=== PATIENT | female | born 1965 | race Caucasian/White ===

== ENCOUNTER → 2016-07-31 | Outpatient (CLI) | payer OTHER ==
[~2016-07-31] MED LIST: AMIT10TA6 PO; ASPI81TA28 PO; ATORVASTATIN PO; ATV5X PO; AZAT50TA22 PO; AZIT250T PO; CHOL100027 PO; CHOL2000 PO; CIPR-255 PO; FLV1 PO; GABA-112 PO; GABA-113 PO; GABA1CAP4 PO; LINA1CAP2 PO; LSN20 PO; LSN40 PO; LSX20 PO; LVQ750 PO; MCRK/20 PO; MELO15TA10 PO; METR-163 PO; MTH25 PO; NYSS5 PO; OMEP40CA41 PO; ONDA4TAB10 SL; OXYC-57 PO; OXYC1CAP5 PO; POTA20TA16 PO; PRED-301 PO; PRED20TA PO; PRVHFAIN INH; PRZ/40 PO; SYN50 PO; TPRSR/25 PO; ZOLP10TA6 PO
[2016-07-31 16:46] LABS: BLOOD UREA NITROGEN 11 mg/dl (7-18); BUN/CREATININE RATIO 11.2 (10-20); CALCIUM 8.8 mg/dl (8.5-10.1); CARBON DIOXIDE 24 mmol/L (21-32); CHLORIDE 95 mmol/L (98-107); CREATININE 0.98 mg/dl (0.60-1.20); GLUCOSE 84 mg/dl (70-99); POTASSIUM 4.6 mmol/L (3.5-5.1); SODIUM 129 mmol/L (136-145)
[2016-07-31 16:47] LABS: PHOSPHORUS 3.3 mg/dl (2.5-4.9)
== END | disposition home or self-care (01) ==
LOC: C.LAB1850 15:24
PROVIDERS: ATTEND Internal Medicine Nephrology
DX: E83.42 Hypomagnesemia (principal)

== ENCOUNTER → 2016-08-27 | Outpatient (CLI) | payer OTHER ==
[2016-08-27 11:11] LABS: BASO % 0.2 %; BASO ABS # 0.01 K/uL (0-0.2); COMPLETE YES; EOS % 1.7 %; HEMATOCRIT 33.4 % (37-47); IG% 0.4 %; LYMPH % 23.9 %; LYMPH ABS # 1.25 K/uL (1.2-3.4); MEAN CELL VOLUME 94.6 fL (80-100); MEAN CORPUSCULAR HGB CONC 33.8 g/dl (32-36); MONO % 9.4 %; NEUT % 64.4 %; PLATELET COUNT 217 K/uL (130-400); RED BLOOD COUNT 3.53 M/uL (4.2-5.4); WHITE BLOOD COUNT 5.22 K/uL (4.8-10.8)
[2016-08-27 11:43] LABS: ALT/SGPT 91 U/L (12-78); BLOOD UREA NITROGEN 12 mg/dl (7-18); BUN/CREATININE RATIO 13.5 (10-20); CALCIUM 8.7 mg/dl (8.5-10.1); CARBON DIOXIDE 26 mmol/L (21-32); CHLORIDE 103 mmol/L (98-107); CREATININE 0.86 mg/dl (0.60-1.20); GLUCOSE 84 mg/dl (70-99); MAGNESIUM 2.1 mg/dl (1.8-2.4); POTASSIUM 3.9 mmol/L (3.5-5.1); SODIUM 139 mmol/L (136-145)
[2016-08-27 11:53] LABS: ALB/GLOB RATIO 0.9 (0.9-2); ALKALINE PHOSPHATASE 86 U/L (45-117); AST/SGOT 62 U/L (15-37); PHOSPHORUS 3.9 mg/dl (2.5-4.9)
== END | disposition home or self-care (01) ==
LOC: C.LAB1850 09:34
PROVIDERS: ATTEND Internal Medicine
DX: E87.1 Hypo-osmolality and hyponatremia (principal); E87.6 Hypokalemia; E83.42 Hypomagnesemia; I10 Essential (primary) hypertension

== ENCOUNTER → 2016-10-01 | Outpatient (CLI) | payer OTHER ==
[2016-10-01 16:37] LABS: BASO % 0.1 %; BASO ABS # 0.01 K/uL (0-0.2); COMPLETE YES; EOS % 0.7 %; HEMATOCRIT 33.4 % (37-47); IG% 0.3 %; LYMPH % 11.4 %; LYMPH ABS # 0.77 K/uL (1.2-3.4); MEAN CELL VOLUME 97.4 fL (80-100); MEAN CORPUSCULAR HEMOGLOBIN 32.9 pg (25-34); MEAN CORPUSCULAR HGB CONC 33.8 g/dl (32-36); MEAN PLATELET VOLUME 9.9 fL (7.4-10.4); MONO % 6.2 %; NEUT % 81.3 %; PLATELET COUNT 249 K/uL (130-400); RED BLOOD COUNT 3.43 M/uL (4.2-5.4); WHITE BLOOD COUNT 6.75 K/uL (4.8-10.8)
== END | disposition home or self-care (01) ==
LOC: C.LAB1850 15:21
PROVIDERS: ATTEND Internal Medicine
DX: D64.9 Anemia, unspecified (principal)

== ENCOUNTER 2016-10-22 12:44 | Emergency (ER) | payer OTHER ==
[~2016-10-22] VITALS: Ht 175.3 cm; Wt 77.9 kg
[~2016-10-22 12:44] MED LIST changes: -ATORVASTATIN PO; -AZIT250T PO; -CHOL2000 PO; -CIPR-255 PO; -GABA1CAP4 PO; -LINA1CAP2 PO; -LSN40 PO; -LSX20 PO; -LVQ750 PO; -METR-163 PO; -MTH25 PO; -OXYC1CAP5 PO; -POTA20TA16 PO; -PRED20TA PO; -PRVHFAIN INH
[2016-10-22 12:46] VITALS: TEMP 36.4; Ht 175.3 cm; Wt 77.9 kg
[2016-10-22] MEDS ORDERED: ONDANSETRON INJ 2 MG/ML 2 ML VIAL IV STA (13:16)
[2016-10-22] MEDS ORDERED: MoRPHine SULFATE 4 MG/ML 1 ML CARP\\VIAL IV STA (13:16)
[2016-10-22] MEDS ORDERED: SODIUM CHLORIDE 0.9% 1000ML 1,000 ML IV STA (13:16)
[2016-10-22] MEDS ORDERED: OPTIRAY 320 IV PRN (13:30)
--- NOTE | 2016-10-22 13:40 | EMERGENCY ROOM VISIT NOTE ---
History First contact with patient: 13:03 Chief Complaint: ABDOMINAL PAIN Stated Complaint: RIGHT LOWER ABD PAIN Nursing Triage Summary: Triage note; pt reports right lower abd pain x 3 days and pain is increasing. pt also reports diarrhea. pt reports nausea. pt reports decreased po intake. History of Present Illness The patient is a 51 year old female who presents to the Emergency Room with complaints of right lower quadrant abdominal pain for the last 3 days. The patient states that the pain has been worsening over the last 3 days. She also reports diarrhea. She rates her discomfort a 7.5/10. She reports nausea. She states she also has had some dysuria. She denies any fevers. She denies any pain in her chest or trouble breathing. She denies hematemesis, melena or hematochezia. She has had in the past but denies any other abdominal surgeries. She does have a history of lupus. Review of Systems A 10 system review of systems was completed with positives and pertinent negatives listed in the HPI. 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 (3) DEPRESSIVE DISORDER NEC (4) HYPERLIPIDEMIA NEC/NOS (5) Hyponatremia (6) Lupus (7) Raynaud's disease (8) Sjogren's disorder (9) SYST LUPUS ERYTHEMATOSIS (10) TOBACCO USE DISORDER Family History Cancer Gallbladder disease Heart disease Hypertension Kidney disease Kidney stones Lung disease Social History Smoking Status: Former Smoker Alcohol Use: none Drug Use: none Marital Status: Housing Status: lives with family Occupation Status: unemployed Current/Historical Medications Scheduled Amitriptyline Hcl (Elavil), 20 MG PO HS Aspirin (Aspirin Ec), 81 MG PO DAILY Cholecalciferol (Vitamin D 1000 Unit), 3,000 INTER.UNIT PO DAILY Ciprofloxacin Hcl (Cipro), 500 MG PO BID Fluoxetine Hcl (Prozac), 80 MG PO DAILY Folic Acid (Folic Acid), 1 MG PO DAILY Furosemide (Furosemide), 20 MG PO QAM Gabapentin (Gabapentin), 300 MG PO TID Levothyroxine Sodium (Synthroid), 50 MCG PO DAILY Lisinopril (Lisinopril), 20 MG PO DAILY Lisinopril (Lisinopril), 40 MG PO QAM Methotrexate (Methotrexate), 2.5 MG PO TUE Metronidazole (Flagyl), 500 MG PO TID Prednisone (Prednisone), 10 MG PO DAILY Zolpidem Tartrate (Zolpidem Tartrate), 10 MG PO HS [Atorvastatin], 1 TAB PO HS Scheduled PRN Oxycodone/Acetaminophen 5MG/325MG (Percocet 5MG/325MG), 1 TAB PO QID PRN for Pain Allergies Coded Allergies: Penicillins (Verified Allergy, Unknown, *, 10/22/16) Vancomycin (Verified Allergy, Unknown, *, 10/22/16) Physical Exam Vital Signs Date Time Temp Pulse Resp B/P Pulse Ox O2 Delivery O2 Flow Rate FiO2 10/22/16 16:11 60 20 180/63 99 Room Air 10/22/16 14:44 130/68 10/22/16 12:46 36.4 67 18 130/69 98 Room Air Physical Exam VITALS: Vitals are noted on the nurse's note and reviewed by myself. Vital signs stable. The patient is afebrile. GENERAL: This is a 51 year old female, in no acute distress, nondiaphoretic, well-developed well-nourished. SKIN: The skin was without rashes, erythema, edema, or bruising. There is no tenting of the skin. Capillary reflex less than 2 seconds. HEAD: Normocephalic atraumatic. EARS: The external ears are normal in appearance. EYES: Pupils equal round and reactive to light and accommodation. Conjunctivae without injection, sclerae without icterus. Extraocular movements intact. NOSE: Patent, turbinates without inflammation or discharge. MOUTH: Mucous membranes moist. Tonsils are not enlarged. Pharynx without erythema or exudate. Uvula midline. Airway patent. Tongue does not deviate. NECK: Supple without nuchal rigidity. No JVD. HEART: Regular rate and rhythm without murmurs gallops or rubs. LUNGS: Clear to auscultation bilaterally without wheezes, rales or rhonchi. No retractions or accessory muscle use. ABDOMEN: Positive bowel sounds x 4. Soft, moderate right lower quadrant tenderness, without masses or organomegaly. Farmer sign negative. MUSCULOSKELETAL: No muscle atrophy, erythema, or edema noted. Full range of motion in all extremities. Normal gait. Strength 5/5 throughout. NEURO: Patient was alert and oriented to person place and time. No focal neurological deficits. Medical Decision & Procedures ER Provider Diagnostic Interpretation: [~ rep ct add3]] ABDOMEN AND PELVIS CT WITH IV CONTRAST CT DOSE: 624.17 mGycm HISTORY: Pain abdominal pain TECHNIQUE: Multiaxial CT images of the abdomen and pelvis were performed following the use of intravenous contrast. COMPARISON STUDY: None. FINDINGS: Lung bases are clear. Liver spleen and pancreas are unremarkable. Kidneys negative for hydronephrosis. The appendix measures 5.4 mm maximum diameter. Lateral to the tip of the appendix and cecum is an area of infiltrative change suggesting epiploic appendagitis. This most likely represents a small omental infarct. There is no surrounding significant fluid abscess or collection. There is a moderate amount of free fluid within the pelvic cul-de-sac. Bladder is midline. Bowel pattern overall is nonobstructive. IMPRESSION: 1. Findings consistent with epiploic appendagitis, versus a small right lower quadrant omental infarct. 2. Small/moderate free fluid within the pelvic cul-de-sac. 3. No evidence for appendicitis. 4. No evidence for abscess, collection, or obstructive change. Laboratory Results 10/22/16 13:05 Red Blood Count 3.74, Mean Corpuscular Volume 95.5, Mean Corpuscular Hemoglobin 32.1, Mean Corpuscular Hemoglobin Concent 33.6, Mean Platelet Volume 9.7, Neutrophils (%) (Auto) 78.9, Lymphocytes (%) (Auto) 9.4, Monocytes (%) (Auto) 10.8, Eosinophils (%) (Auto) 0.7, Basophils (%) (Auto) 0.1, Neutrophils # (Auto ) 6.92, Lymphocytes # (Auto) 0.82, Monocytes # (Auto) 0.95, Eosinophils # (Auto ) 0.06, Basophils # (Auto) 0.01 10/22/16 13:05 Test 10/22/16 13:05 10/22/16 13:55 White Blood Count 8.77 K/uL (4.8-10.8) Red Blood Count 3.74 M/uL (4.2-5.4) Hemoglobin 12.0 g/dL (12.0-16.0) Hematocrit 35.7 % (37-47) Mean Corpuscular Volume 95.5 fL (80-100) Mean Corpuscular Hemoglobin 32.1 pg (25-34) Mean Corpuscular Hemoglobin Concent 33.6 g/dl (32-36) Platelet Count 263 K/uL (130-400) Mean Platelet Volume 9.7 fL (7.4-10.4) Neutrophils (%) (Auto) 78.9 % Lymphocytes (%) (Auto) 9.4 % Monocytes (%) (Auto) 10.8 % Eosinophils (%) (Auto) 0.7 % Basophils (%) (Auto) 0.1 % Neutrophils # (Auto) 6.92 K/uL (1.4-6.5) Lymphocytes # (Auto) 0.82 K/uL (1.2-3.4) Monocytes # (Auto) 0.95 K/uL (0.11-0.59) Eosinophils # (Auto) 0.06 K/uL (0-0.5) Basophils # (Auto) 0.01 K/uL (0-0.2) RDW Standard Deviation 48.0 fL (36.4-46.3) RDW Coefficient of Variation 13.9 % (11.5-14.5) Immature Granulocyte % (Auto) 0.1 % Immature Granulocyte # (Auto) 0.01 K/uL (0.00-0.02) Anion Gap 9.0 mmol/L (3-11) Est Creatinine Clear Calc Drug Dose 78.2 ml/min Estimated GFR () 87.0 Estimated GFR (Non- 75.0 BUN/Creatinine Ratio 7.0 (10-20) Calcium Level 8.8 mg/dl (8.5-10.1) Total Bilirubin 0.4 mg/dl (0.2-1) Aspartate Amino Transf (AST/SGOT) 101 U/L (15-37) Alanine Aminotransferase (ALT/SGPT) 134 U/L (12-78) Alkaline Phosphatase 104 U/L (45-117) Total Protein 7.3 gm/dl (6.4-8.2) Albumin 3.5 gm/dl (3.4-5.0) Globulin 3.8 gm/dl (2.5-4.0) Albumin/Globulin Ratio 0.9 (0.9-2) Lipase 130 U/L (73-393) Urine Color YELLOW Urine Appearance CLEAR (CLEAR) Urine pH 6.5 (4.5-7.5) Urine Specific [place] 1.005 (1.000-1.030) Urine Protein NEG (NEG) Urine Glucose (UA) NEG (NEG) Urine Ketones NEG (NEG) Urine Occult Blood NEG (NEG) Urine Nitrite NEG (NEG) Urine Bilirubin NEG (NEG) Urine Urobilinogen NEG (NEG) Urine Leukocyte Esterase NEG (NEG) Medications Administered Medications (Trade) Dose Ordered Sig/Miranda Route Start Time Stop Time Status Last Admin Dose Admin Sodium Chloride (Nss 1000ml) 1,000 ml @ 999 mls/hr Q1H1M STAT IV 10/22/16 13:16 10/22/16 14:16 DC 10/22/16 13:46 999 MLS/HR Ondansetron HCl (Zofran Inj) 4 mg NOW STAT IV 10/22/16 13:16 10/22/16 13:18 DC 10/22/16 13:46 4 MG Morphine Sulfate (MoRPHine SULFATE INJ) 4 mg NOW STAT IV 10/22/16 13:16 10/22/16 13:18 DC 10/22/16 13:46 4 MG Hydromorphone HCl (Dilaudid Inj) 1 mg NOW STAT IV 10/22/16 14:32 10/22/16 14:33 DC 10/22/16 14:41 1 MG Hydromorphone HCl (Dilaudid Inj) 0.5 mg NOW STAT IV 10/22/16 16:15 10/22/16 16:16 DC 10/22/16 16:23 0.5 MG ED Course The patient was seen and examined. Previous visits were reviewed. The patient does not have a fever or leukocytosis. She does not have any significant electrolyte abnormality. She slightly hypokalemic with potassium 3.1. Her transaminases are elevated at 101 AST and 134 ALT. The patient states that she has had elevation in her liver enzymes recently. Lipase was not elevated. Urinalysis is negative. CT scan of the abdomen and pelvis is consistent with epiploic appendagitis She was hydrated with normal saline She was given 4 mg IV Zofran and 4 mg IV morphine with mild improvement in her pain She was then given 1 mg IV Dilaudid with good improvement in her pain She was given additional 0.5 mg IV Dilaudid prior to discharge The patient presents to the emergency department with right lower quadrant abdominal pain and tenderness. She has epiploic appendagitis on imaging. This would likely explain her pain. Given the fact that the patient is on methotrexate has lupus, she will be covered with Cipro and Flagyl for 5 days. The patient has had elevation in her transaminases which she states that this has been ongoing. She does not have any upper abdominal tenderness to palpation. The patient should return to the ER with any worsening pain, fevers. Otherwise, she should follow-up with her family doctor next week. The patient was also seen and examined by who agrees with the assessment and treatment plan. Medical Decision DIFFERENTIAL DIAGNOSIS: Hepatitis, cholecystitis, cholangitis, biliary colic, pancreatitis, pneumonia, subdiaphragmatic abscess, appendicitis, inguinal hernia , nephrolithiasis, inflammatory bowel disease, mesenteric adenitis, peptic ulcer disease, GERD, gastritis, pancreatitis, myocardial infarction, pericarditis, ruptured aortic aneurysm, appendicitis, gastroenteritis, bowel obstruction, splenic infarct, diverticulitis, mesenteric ischemia, metabolic, peritonitis, among others. Impression Primary Impression: Epiploic appendagitis Additional Impression: Right lower quadrant abdominal pain Departure Information Dispostion Home / Self-Care Condition GOOD Prescriptions Metronidazole (Flagyl) 500 Mg Tab 500 MG PO TID for 5 Days, #15 TAB Prov: Windy Coates PA-C 10/22/16 Ciprofloxacin Hcl (CIPRO) 500 Mg Tab 500 MG PO BID for 5 Days, #10 TAB Prov: Windy Coates PA-C 10/22/16 Referrals Jairo Escobar M.D. (PCP) Forms Call Back Authorization, HOME CARE DOCUMENTATION FORM, IMPORTANT VISIT INFORMATION, Work Instructions Specific Date: Off work 10/23/16 and 10/24/16 Patient Instructions [facility] Additional Instructions Cipro and flagyl as prescribed until finished Continue your pain medication as prescribed Return with fevers or worsening pain Otherwise, recheck with your family doctor on Wednesday Problem Qualifiers
[2016-10-22] MEDS ORDERED: LSN40 PO (13:46)
[2016-10-22] MEDS ORDERED: GABA1CAP4 PO (13:46)
[2016-10-22] MEDS ORDERED: MTH25 PO (13:46)
[2016-10-22] MEDS ORDERED: ATORVASTATIN PO (13:50)
[2016-10-22 13:53] LABS: BASO % 0.1 %; BASO ABS # 0.01 K/uL (0-0.2); COMPLETE YES; EOS % 0.7 %; HEMATOCRIT 35.7 % (37-47); IG% 0.1 %; LYMPH % 9.4 %; LYMPH ABS # 0.82 K/uL (1.2-3.4); MEAN CELL VOLUME 95.5 fL (80-100); MEAN CORPUSCULAR HEMOGLOBIN 32.1 pg (25-34); MEAN CORPUSCULAR HGB CONC 33.6 g/dl (32-36); MEAN PLATELET VOLUME 9.7 fL (7.4-10.4); MONO % 10.8 %; NEUT % 78.9 %; PLATELET COUNT 263 K/uL (130-400); RED BLOOD COUNT 3.74 M/uL (4.2-5.4); WHITE BLOOD COUNT 8.77 K/uL (4.8-10.8)
[2016-10-22] MEDS ORDERED: LSX20 PO (13:53)
[2016-10-22 14:00] LABS: CALCIUM 8.8 mg/dl (8.5-10.1)
[2016-10-22 14:02] LABS: CREATININE 0.89 mg/dl (0.60-1.20); POTASSIUM 3.1 mmol/L (3.5-5.1)
[2016-10-22 14:05] LABS: ALB/GLOB RATIO 0.9 (0.9-2)
[2016-10-22] MEDS ORDERED: HYDROmorphone INJ 1 MG/ML SYR IV STA ×2 (14:32→16:15)
[2016-10-22 14:57] LABS: URINE APPEARANCE CLEAR (CLEAR); URINE BILIRUBIN NEG (NEG); URINE COLOR YELLOW; URINE NITRITE NEG (NEG); URINE PH 6.5 (4.5-7.5); URINE SPECIFIC GRAVITY 1.005 (1.000-1.030); UROBILINOGEN NEG (NEG); ZZUR CULT IF INDIC CLEAN CATCH NO
[2016-10-22 15:00] LABS: MANUAL MICROSCOPIC REQUIRED? NO; REVIEW REQ? NO
--- NOTE | 2016-10-22 15:36 | DIAGNOSTIC IMAGING REPORT ---
ABDOMEN AND PELVIS CT WITH IV CONTRAST CT DOSE: 624.17 mGycm HISTORY: Pain abdominal pain TECHNIQUE: Multiaxial CT images of the abdomen and pelvis were performed following the use of intravenous contrast. COMPARISON STUDY: None. FINDINGS: Lung bases are clear. Liver spleen and pancreas are unremarkable. Kidneys negative for hydronephrosis. The appendix measures 5.4 mm maximum diameter. Lateral to the tip of the appendix and cecum is an area of infiltrative change suggesting epiploic appendagitis. This most likely represents a small omental infarct. There is no surrounding significant fluid abscess or collection. There is a moderate amount of free fluid within the pelvic cul-de-sac. Bladder is midline. Bowel pattern overall is nonobstructive. IMPRESSION: 1. Findings consistent with epiploic appendagitis, versus a small right lower quadrant omental infarct. 2. Small/moderate free fluid within the pelvic cul-de-sac. 3. No evidence for appendicitis. 4. No evidence for abscess, collection, or obstructive change. Electronically signed by: Raza Flores M.D. 10/22/2016 3:34 PM Dictated Date/Time: 10/22/2016 3:20 PM
--- NOTE | 2016-10-22 15:53 | EMERGENCY ROOM VISIT NOTE ---
ED Visit Note First contact with patient: 15:45 This Patient was discussed with the physician accounting administrative assistant, Yolanda Coates PA-C. The pertinent historical and physical exam findings were confirmed. I agree with the studies ordered and with the interpretations of these studies. I agree with the disposition and care plan.
[2016-10-22] MEDS ORDERED: CIPR-255 PO (16:01)
[2016-10-22] MEDS ORDERED: METR-163 PO (16:01)
[2016-10-22 16:11] VITALS: BP 180/63; PULSE 60; O2SAT 99
== END 2016-10-22 16:28 | disposition home or self-care (01) ==
LOC: C.EDB 12:45
DX: K63.89 Other specified diseases of intestine (principal); Q43.8 Other specified congenital malformations of intestine; R10.31 Right lower quadrant pain; R19.7 Diarrhea, unspecified; F32.9 Major depressive disorder, single episode, unspecified; E78.5 Hyperlipidemia, unspecified; Z79.82 Long term (current) use of aspirin; Z79.899 Other long term (current) drug therapy; Z86.79 Personal history of other diseases of the circulatory system; Z87.891 Personal history of nicotine dependence; Z82.49 Family history of ischemic heart disease and other diseases of the circulatory system; Z83.6 Family history of other diseases of the respiratory system; Z83.79 Family history of other diseases of the digestive system; Z84.1 Family history of disorders of kidney and ureter

== ENCOUNTER → 2016-10-27 | Outpatient (CLI) | payer OTHER ==
[~2016-10-27] MED LIST changes: +ATORVASTATIN PO; -ATV5X PO; -AZAT50TA22 PO; +AZIT250T PO; +CHOL2000 PO; +CIPR-255 PO; -GABA-112 PO; -GABA-113 PO; +GABA1CAP4 PO; +LINA1CAP2 PO; +LSN40 PO; +LSX20 PO; +LVQ750 PO; -MCRK/20 PO; -MELO15TA10 PO; +METR-163 PO; +MTH25 PO; -NYSS5 PO; -OMEP40CA41 PO; -ONDA4TAB10 SL; +OXYC1CAP5 PO; +POTA20TA16 PO; +PRED20TA PO; +PRVHFAIN INH
[2016-10-27 17:34] LABS: BASO % 0.1 %; BASO ABS # 0.01 K/uL (0-0.2); COMPLETE YES; EOS % 0.2 %; HEMATOCRIT 36.7 % (37-47); IG% 0.1 %; LYMPH % 6.9 %; LYMPH ABS # 0.61 K/uL (1.2-3.4); MEAN CELL VOLUME 98.4 fL (80-100); MEAN CORPUSCULAR HEMOGLOBIN 32.7 pg (25-34); MEAN CORPUSCULAR HGB CONC 33.2 g/dl (32-36); MONO % 5.1 %; NEUT % 87.6 %; PLATELET COUNT 282 K/uL (130-400); RED BLOOD COUNT 3.73 M/uL (4.2-5.4); WHITE BLOOD COUNT 8.79 K/uL (4.8-10.8)
[2016-10-27 18:24] LABS: ALT/SGPT 155 U/L (12-78); AST/SGOT 152 U/L (15-37); BLOOD UREA NITROGEN 8 mg/dl (7-18); BUN/CREATININE RATIO 8.5 (10-20); CALCIUM 9.3 mg/dl (8.5-10.1); CARBON DIOXIDE 25 mmol/L (21-32); CHLORIDE 106 mmol/L (98-107); CREATININE 0.94 mg/dl (0.60-1.20); GLUCOSE 107 mg/dl (70-99); POTASSIUM 3.7 mmol/L (3.5-5.1); SODIUM 140 mmol/L (136-145)
[2016-10-27 18:26] LABS: ALKALINE PHOSPHATASE 104 U/L (45-117)
== END | disposition home or self-care (01) ==
LOC: C.LABBFT 15:32
PROVIDERS: ATTEND Physician Assistant Medical
DX: D64.9 Anemia, unspecified (principal)

== ENCOUNTER → 2016-11-03 | Outpatient (CLI) | payer OTHER ==
[~2016-11-03] MED LIST changes: -METR-163 PO
--- NOTE | 2016-11-03 10:23 | DIAGNOSTIC IMAGING REPORT ---
ABDOMEN COMPLETE (US) CLINICAL HISTORY: ABDOMINAL SWELLING; ABNORMAL LIVER ENZYMES COMPARISON STUDY: CT scan dated 10/22/2016 FINDINGS: The liver demonstrates borderline increased echogenicity, without evidence of focal mass. The gallbladder appears sonographically normal. No pancreatic masses are visualized The spleen measures 8.9 cm in length. No splenic masses are visualized. The right kidney measures 10 cm in length. The left kidney measures 10 cm in length. No renal masses are visualized. There is no evidence of hydronephrosis. There is no solid dominant right aneurysm. The IVC appears normal as visualized. IMPRESSION: 1. Borderline increased hepatic echogenicity. Otherwise normal ultrasound of the upper abdomen. Electronically signed by: Carmine Leonardo M.D. 11/03/2016 10:20 AM Dictated Date/Time: 11/03/2016 10:18 AM
== END | disposition home or self-care (01) ==
LOC: C.ULTRBC 09:47
PROVIDERS: ATTEND Physician Assistant Medical
DX: R19.00 Intra-abdominal and pelvic swelling, mass and lump, unspecified site (principal); R74.8 Abnormal levels of other serum enzymes

== ENCOUNTER 2016-11-27 08:50 | Day surgery (SDC) | payer OTHER ==
[~2016-11-27] VITALS: Ht 175.3 cm; Wt 76.2 kg
[~2016-11-27 08:50] MED LIST changes: -AZIT250T PO; -CHOL2000 PO; -LINA1CAP2 PO; -LVQ750 PO; -OXYC1CAP5 PO; -POTA20TA16 PO; -PRED20TA PO; -PRVHFAIN INH; -TPRSR/25 PO
[2016-11-27 09:07] VITALS: BP 137/71; PULSE 58; TEMP 36.6; O2SAT 96; Ht 175.3 cm; Wt 76.2 kg
[2016-11-27 09:27] LABS: MEAN CELL VOLUME 95.5 fL (80-100); MEAN CORPUSCULAR HEMOGLOBIN 31.8 pg (25-34); PLATELET COUNT 234 K/uL (130-400); RED BLOOD COUNT 3.77 M/uL (4.2-5.4); WHITE BLOOD COUNT 7.28 K/uL (4.8-10.8)
[2016-11-27 09:33] LABS: MEAN CORPUSCULAR HGB CONC 33.3 g/dl (32-36)
[2016-11-27 09:37] LABS: INR 0.9 (0.9-1.1); PARTIAL THROMBOPLASTIN RATIO 0.9; PROTHROMBIN TIME (PATIENT) 10.1 SECONDS (9.0-12.0)
[2016-11-27] MEDS ORDERED: ACETAMINOPHEN 500 MG TAB PO PRN (11:00)
--- NOTE | 2016-11-27 11:00 | Discharge Instructions ---
Discharge Instructions Procedure Procedure Date: November 27, 2016. Reason for visit: Elevated Lft's. Discharge Discharge Date: November 27, 2016. Discharge Diagnosis: Elevated LFT's Instructions Activity Recommendations: 1 Day-May resume regular activity Return to School/Work: no limitations Recommended Home Diet: Resume Previous Diet Allergies Coded Allergies: Penicillins (Verified Allergy, Intermediate, passes out as a child, ) Vancomycin (Verified Allergy, Intermediate, red man syndrome, 11/27/16) Sara Parra Recommendations: Call your doctor if: * Temperature above 101 degrees * Pain not relieved by pain medicine ordered * There is increased drainage or redness from any incision * You have any unanswered questions or concerns. Your Doctors Instructions noted above were prepared by provider Carmine Leonardo. Patient Signature Section: Patient Instructions Signature Page Nargis Davenport Patient (or Guardian) Signature/Date: I have read and understand the instructions given to me by my caregivers. Caregiver/RN/Doctor Signature/Date: The above-named patient and/or guardian has received patient instructions on this date. + Original Patient Signature Page (only) stays with chart. Please make copy for patient.
[2016-11-27 11:35] VITALS: BP 142/80; PULSE 60; TEMP 37.1; O2SAT 99
--- NOTE | 2016-11-27 11:36 | DIAGNOSTIC IMAGING REPORT ---
ULTRASOUND-GUIDED HEPATIC CORE BIOPSY CLINICAL HISTORY: Abnormal LFTs. Lupus. COMPARISON STUDY: Ultrasound study dated 11/03/2016 FINDINGS: A timeout was performed. The risks the procedure were explained the patient informed consent was obtained. The patient was prepped and draped in sterile fashion. The patient's skin was anesthetized 1% lidocaine. Utilizing ultrasound guidance, two 18-gauge 2 cm throw core biopsies were acquired from the right lobe of the liver. There were no immediate complications. The patient was sent to same day surgery for postprocedure observation. IMPRESSION: Successful ultrasound-guided core biopsy of the right lobe of the liver. Electronically signed by: Carmine Leonardo M.D. 11/27/2016 11:35 AM Dictated Date/Time: 11/27/2016 11:34 AM
[2016-11-27 12:00] VITALS: BP 129/70; PULSE 62; TEMP 36.7; O2SAT 97
[2016-11-27 12:31] VITALS: BP 152/77; PULSE 61; TEMP 37; O2SAT 99
[2016-11-27 12:50] VITALS: BP 129/59; PULSE 60; TEMP 36.6; O2SAT 98
[2016-11-27 13:31] VITALS: BP 129/76; PULSE 58; TEMP 36.6; O2SAT 96
== END 2016-11-27 13:33 | disposition home or self-care (01) ==
LOC: C.ACU 08:50 → EDSTATUS 09:00 → C.ACU 13:33
PROVIDERS: ATTEND Nurse Practitioner
DX: K73.8 Other chronic hepatitis, not elsewhere classified (principal); K76.0 Fatty (change of) liver, not elsewhere classified; M32.9 Systemic lupus erythematosus, unspecified

== ENCOUNTER → 2016-12-08 | Outpatient (CLI) | payer OTHER ==
[~2016-12-08] MED LIST changes: +AZIT250T PO; +CHOL2000 PO; -CIPR-255 PO; +LINA1CAP2 PO; -LSN20 PO; +LVQ750 PO; +OXYC1CAP5 PO; +POTA20TA16 PO; +PRED20TA PO; +PRVHFAIN INH; +TPRSR/25 PO
[2016-12-08 17:30] LABS: ALT/SGPT 101 U/L (12-78); AST/SGOT 66 U/L (15-37); BLOOD UREA NITROGEN 9 mg/dl (7-18); BUN/CREATININE RATIO 10.4 (10-20); CARBON DIOXIDE 27 mmol/L (21-32); CHLORIDE 105 mmol/L (98-107); CREATININE 0.88 mg/dl (0.60-1.20); GLUCOSE 100 mg/dl (70-99); MAGNESIUM 2.2 mg/dl (1.8-2.4); POTASSIUM 3.4 mmol/L (3.5-5.1); SODIUM 138 mmol/L (136-145)
[2016-12-08 17:34] LABS: ALB/GLOB RATIO 0.9 (0.9-2); ALKALINE PHOSPHATASE 92 U/L (45-117); CHOLESTEROL 175 mg/dl (0-200); CHOLESTEROL/HDL RATIO 2.5; HDL CHOLESTEROL 70 mg/dl; LDL CHOLESTEROL CALCULATED 85 mg/dl; PHOSPHORUS 3.3 mg/dl (2.5-4.9); TRIGLYCERIDES 99 mg/dl (0-150); VERY LOW DENSITY LIPOPROT CALC 20 mg/dl
== END | disposition home or self-care (01) ==
LOC: C.LABBC 13:07
PROVIDERS: ATTEND Internal Medicine Nephrology
DX: E87.1 Hypo-osmolality and hyponatremia (principal); I65.29 Occlusion and stenosis of unspecified carotid artery; E78.5 Hyperlipidemia, unspecified

== ENCOUNTER → 2017-01-06 | Outpatient (CLI) | payer OTHER | END | disposition home or self-care (01) | LOC: C.LAB1850 16:07 | PROVIDERS: ATTEND Internal Medicine | DX: R74.8 Abnormal levels of other serum enzymes (principal) ==

== ENCOUNTER 2017-01-29 10:58 | Inpatient (IN) | payer OTHER ==
[~2017-01-29] VITALS: Ht 175.3 cm; Wt 77.3 kg
[~2017-01-29 10:58] MED LIST changes: -AZIT250T PO; -CHOL2000 PO; -LINA1CAP2 PO; -LVQ750 PO; -OXYC1CAP5 PO; -POTA20TA16 PO; -PRED20TA PO; -PRVHFAIN INH; -TPRSR/25 PO
[2017-01-29] MEDS ORDERED: SODIUM CHLORIDE 0.9% 1000ML 1,000 ML IV STA (11:34)
--- NOTE | 2017-01-29 11:48 | EMERGENCY ROOM VISIT NOTE ---
History First contact with patient: 11:21 Chief Complaint: SHORTNESS OF BREATH Stated Complaint: SOB/CHEST PAIN Nursing Triage Summary: Pt reports having SOB that started last night. Pt spoke with nurse at physician's office and instructed to come here for chest XRAY. Pt reports bladder pressure, fever, and SOB. History of Present Illness The patient is a 51 year old female who presents to the Emergency Room with complaints of chest pain and shortness of breath. The patient has a history of lupus. She has been on CellCept. She developed a fever of 101F on Wednesday. She contacted her trade embalmer who told her to stop the CellCept which she did on Wednesday. She states that she had an intermittent fever over Wednesday, Wednesday and Wednesday. She was seen at urgent care on Wednesday and had a negative rapid strep and a negative urine dip. The patient states that last night she began to developed a pressure and burning sensation in the center of her chest. She also reports dyspnea with exertion. She states she feels a dryness in her throat and lungs. She states that she has a history of thrush and has been using nystatin mouthwash and biotene. The patient has also had bladder pressure. She has had mild diarrhea and nausea. She states that the diarrhea is not uncommon for her as she has a history of irritable bowel syndrome. She denies any headache, neck pain or neck stiffness. She denies any cough. She denies any vomiting. She had a liver biopsy last month which showed inflammation. She has had a history of elevated transaminases. Review of Systems A 10 system review of systems was completed with positives and pertinent negatives listed in the HPI. 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 (13) TOBACCO USE DISORDER Family History Cancer Gallbladder disease Heart disease Hypertension Kidney disease Kidney stones Lung disease Social History Smoking Status: Former Smoker Alcohol Use: none Drug Use: none Marital Status: Housing Status: lives with family Occupation Status: unemployed Current/Historical Medications Scheduled Amitriptyline Hcl (Elavil), 20 MG PO HS Aspirin (Aspirin Ec), 81 MG PO DAILY Cholecalciferol (Vitamin D3), 2 CAP PO DAILY Fluoxetine Hcl (Prozac), 80 MG PO DAILY Folic Acid (Folic Acid), 1 MG PO DAILY Gabapentin (Gabapentin), 900 MG PO TID Lisinopril (Lisinopril), 40 MG PO QAM Metoprolol Succinate (Metoprolol Succinate ER), 1 TAB PO DAILY Oxycodone Hcl (Oxycodone Hcl), 1 CAP PO QID Prednisone (Prednisone), 2 TAB PO DAILY Zolpidem Tartrate (Zolpidem Tartrate), 10 MG PO HS Physical Exam Vital Signs Date Time Temp Pulse Resp B/P (MAP) Pulse Ox O2 Delivery O2 Flow Rate FiO2 01/29/17 17:44 72 17 146/96 95 01/29/17 16:29 72 01/29/17 16:16 79 22 145/61 98 Room Air 2.0 01/29/17 14:37 64 20 152/74 97 Nasal Cannula 3.0 01/29/17 14:31 94 93 Room Air 01/29/17 13:13 66 20 153/78 98 Nasal Cannula 2.0 01/29/17 12:30 61 01/29/17 12:25 99 Nasal Cannula 2.0 01/29/17 12:23 59 22 221/84 99 Nasal Cannula 2.0 01/29/17 11:04 36.7 76 20 154/89 95 Room Air Physical Exam VITALS: Vitals are noted on the nurse's note and reviewed by myself. Vital signs stable. GENERAL: This is a 51-year-old female, in no acute distress, nondiaphoretic, well-developed well-nourished. SKIN: The skin was without rashes, erythema, edema, or bruising. There is no tenting of the skin. Capillary reflex less than 2 seconds. HEAD: Normocephalic atraumatic. EARS: External auditory canals clear, tympanic membranes pearly ritter without erythema or effusion bilaterally. EYES: Pupils equal round and reactive to light and accommodation. Conjunctivae without injection, sclerae without icterus. Extraocular movements intact. NOSE: Patent, turbinates without inflammation or discharge. No sinus tenderness. MOUTH: Mucous membranes moist. Tonsils are not enlarged. There are a few small areas of petechiae to the hard palate. The patient does wear an upper denture. Pharynx without exudate. Uvula midline. Airway patent. Tongue does not deviate. NECK: Supple without nuchal rigidity. No lymphadenopathy. No thyromegaly. Cervical spine is nontender. No JVD. HEART: Regular rate and rhythm without murmurs gallops or rubs. LUNGS: Clear to auscultation bilaterally without wheezes, rales or rhonchi. No retractions or accessory muscle use. ABDOMEN: Positive bowel sounds x 4. Soft, mild diffuse tenderness, without masses or organomegaly. Farmer sign negative. MUSCULOSKELETAL: No muscle atrophy, erythema, or edema noted. Full range of motion in all extremities. No tenderness to palpation. Normal gait. Strength 5/5 throughout. NEURO: Patient was alert and oriented to person place and time. No focal neurological deficits. Medical Decision & Procedures ER Provider Diagnostic Interpretation: ABD/PELVIS IV CONTRAST ONLY CT DOSE: HISTORY: Pain ll. Pain, fever, on cell cept TECHNIQUE: Multiaxial CT images of the abdomen and pelvis were performed following the use of intravenous contrast. A dose lowering technique was utilized adhering to the principles of ALARA. COMPARISON STUDY: 10/22/2016 FINDINGS: The lung bases are clear. The liver, spleen, gallbladder, pancreas, kidneys, and adrenal glands are within normal limits. No bowel wall thickening or obstruction. The pelvic organs are unremarkable. No suspicious lytic or blastic osseous lesions. Postoperative changes consistent with a low lumbar laminectomy. IMPRESSION: No acute process the abdomen or pelvis. ] (CHEST FOR PE) ANGIO WITH CT DOSE: 656.35 mGy.cm HISTORY: 51 years-old Female presents with fever and elevated d-dimer. Left lower quadrant abdominal pain. TECHNIQUE: Multiple CTA images of the chest were obtained after the intravenous administration of 92 ml Optiray 320. Coronal and sagittal MIPS were obtained from the axial data set and were submitted for review. A dose lowering technique was utilized adhering to the principles of ALARA. COMPARISON: CT abdomen and pelvis of same day. FINDINGS: CTA: There is adequate opacification of the pulmonary arteries to the level of the subsegmental branches without convincing evidence of acute pulmonary embolism. The thoracic aorta is normal in course and caliber. Heart size is normal. There is minimal reflux of contrast into the IVC, likely secondary to injection technique. CT CHEST: Thyroid is homogeneous. Mild right hilar adenopathy measuring up to 1.9 x 1.4 cm is noted. Mild left hilar and prevascular lymph nodes are also seen measuring up to 1.7 x 0.8 cm. There is no pneumothorax or pleural effusion. Moderate paraseptal and centrilobular emphysematous changes are noted. Multifocal multilobar distribution of groundglass opacities are noted diffusely throughout the lungs bilaterally. There is moderate bronchial wall thickening in a multilobar distribution. Additionally, there are areas of mosaic attenuation and interlobular septal thickening. The imaged upper abdominal structures are within normal limits. Soft tissues are unremarkable. Bones are intact with mild multilevel endplate spurring throughout the spine. IMPRESSION: 1. No evidence of acute aortic pathology or pulmonary thromboembolic disease. 2. Multifocal multilobar distribution of diffuse groundglass opacities are noted with associated bronchial wall thickening, mosaic attenuation and interlobular septal thickening. These findings are nonspecific with differential considerations including atypical pneumonia with bronchitis or pulmonary edema among other etiologies. Follow-up imaging to document resolution is recommended. 3. Background moderate centrilobular and paraseptal emphysema. CHEST ONE VIEW PORTABLE CLINICAL HISTORY: chest pain, fever dyspnea COMPARISON STUDY: 04/24/2016 FINDINGS: The bones soft tissues and hemidiaphragms are normal. The cardiomediastinal silhouette is normal. The lungs are clear. The pulmonary vasculature is normal. IMPRESSION: Negative chest. Laboratory Results 01/29/17 11:20 Red Blood Count 4.38, Mean Corpuscular Volume 87.9, Mean Corpuscular Hemoglobin 29.7, Mean Corpuscular Hemoglobin Concent 33.8, Mean Platelet Volume 9.8, Neutrophils (%) (Auto) 74.1, Lymphocytes (%) (Auto) 16.2, Monocytes (%) (Auto) 6.7, Eosinophils (%) (Auto) 2.4, Basophils (%) (Auto) 0.3, Neutrophils # (Auto) 4.88, Lymphocytes # (Auto) 1.07, Monocytes # (Auto) 0.44, Eosinophils # (Auto) 0.16, Basophils # (Auto) 0.02 01/29/17 11:20 Test 01/29/17 11:20 01/29/17 11:34 01/29/17 12:15 01/29/17 12:30 White Blood Count 6.59 K/uL (4.8-10.8) Red Blood Count 4.38 M/uL (4.2-5.4) Hemoglobin 13.0 g/dL (12.0-16.0) Hematocrit 38.5 % (37-47) Mean Corpuscular Volume 87.9 fL (80-100) Mean Corpuscular Hemoglobin 29.7 pg (25-34) Mean Corpuscular Hemoglobin Concent 33.8 g/dl (32-36) Platelet Count 282 K/uL (130-400) Mean Platelet Volume 9.8 fL (7.4-10.4) Neutrophils (%) (Auto) 74.1 % Lymphocytes (%) (Auto) 16.2 % Monocytes (%) (Auto) 6.7 % Eosinophils (%) (Auto) 2.4 % Basophils (%) (Auto) 0.3 % Neutrophils # (Auto) 4.88 K/uL (1.4-6.5) Lymphocytes # (Auto) 1.07 K/uL (1.2-3.4) Monocytes # (Auto) 0.44 K/uL (0.11-0.59) Eosinophils # (Auto) 0.16 K/uL (0-0.5) Basophils # (Auto) 0.02 K/uL (0-0.2) RDW Standard Deviation 40.4 fL (36.4-46.3) RDW Coefficient of Variation 12.5 % (11.5-14.5) Immature Granulocyte % (Auto) 0.3 % Immature Granulocyte # (Auto) 0.02 K/uL (0.00-0.02) Prothrombin Time 10.7 SECONDS (9.0-12.0) Prothromb Time International Ratio 1.0 (0.9-1.1) Activated Partial Thromboplast Time 28.3 SECONDS (21.0-31.0) Partial Thromboplastin Ratio 1.1 D-Dimer 990 ug/L FEU (0-500) Anion Gap 8.0 mmol/L (3-11) Est Creatinine Clear Calc Drug Dose 75.6 ml/min Estimated GFR () 83.6 Estimated GFR (Non- 72.1 BUN/Creatinine Ratio 7.5 (10-20) Calcium Level 9.4 mg/dl (8.5-10.1) Magnesium Level 2.0 mg/dl (1.8-2.4) Total Bilirubin 0.5 mg/dl (0.2-1) Aspartate Amino Transf (AST/SGOT) 41 U/L (15-37) Alanine Aminotransferase (ALT/SGPT) 44 U/L (12-78) Alkaline Phosphatase 95 U/L (45-117) Creatine Kinase MB 0.5 ng/ml (0.5-3.6) Troponin I < 0.015 ng/ml (0-0.045) Total Protein 7.6 gm/dl (6.4-8.2) Albumin 3.0 gm/dl (3.4-5.0) Globulin 4.6 gm/dl (2.5-4.0) Albumin/Globulin Ratio 0.7 (0.9-2) Lipase 151 U/L (73-393) Thyroid Stimulating Hormone (TSH) 3.540 uIu/ml (0.300-4.500) Monoscreen NEG (NEG) Creatine Kinase MB Ratio (0-3.0) Lactic Acid Level 1.6 mmol/L (0.4-2.0) Urine Color YELLOW Urine Appearance CLEAR (CLEAR) Urine pH 7.0 (4.5-7.5) Urine Specific [place] 1.016 (1.000-1.030) Urine Protein NEG (NEG) Urine Glucose (UA) NEG (NEG) Urine Ketones NEG (NEG) Urine Occult Blood NEG (NEG) Urine Nitrite NEG (NEG) Urine Bilirubin NEG (NEG) Urine Urobilinogen NEG (NEG) Urine Leukocyte Esterase TRACE (NEG) Urine WBC (Auto) 1-5 /hpf (0-5) Urine RBC (Auto) 0-4 /hpf (0-4) Urine Hyaline Casts (Auto) 0 /lpf (0-5) Urine Epithelial Cells (Auto) 10-20 /lpf (0-5) Urine Bacteria (Auto) NEG (NEG) Medications Administered Medications (Trade) Dose Ordered Sig/Miranda Route Start Time Stop Time Status Last Admin Dose Admin Sodium Chloride 1,000 ml @ 999 mls/hr Q1H1M STAT IV 01/29/17 11:34 01/29/17 12:34 DC 01/29/17 12:27 999 MLS/HR Levofloxacin (Levaquin / D5W) 750 mg NOW STAT IV 01/29/17 14:20 7/21/17 14:21 DC 01/29/17 14:35 750 MG Ondansetron HCl (Zofran Inj) 4 mg Q6H PRN IV 01/29/17 17:45 02/28/17 17:44 01/29/17 20:11 4 MG Procedure The patient was monitored on a quality assurance monitor. They maintained a normal sinus rhythm without ectopy. ECG Indication: chest pain Rate (beats per minute): 58 Rhythm: sinus bradycardia Findings: no acute ischemic change Change: no significant change ED Course The patient was seen and examined. Previous visits were reviewed. The patient does not have a fever or leukocytosis. She does not have any significant electrolyte abnormality. She slightly hypokalemic with potassium 3.3. Lactic acid was not elevated. AST was minimally elevated at 41 and is actually significantly improved compared to previous. ALT is within normal limits at 44. Cardiac enzymes were not elevated. Lipase was not elevated. TSH was within normal limits. D-dimer was elevated. INR was 1.0. Urinalysis suggests contamination. [place] was negative. Chest x-ray does not reveal any significant abnormality CTA of the chest suggests an area of opacity that his multi lobar and could represent an atypical pneumonia CT scan of the abdomen and pelvis with IV contrast does not reveal any significant abnormality The patient was hydrated with normal saline She was given IV Zofran She was given IV Levaquin The patient presents to the emergency department with chest pain, dyspnea and fever. She is immunocompromised and has been on CellCept until Wednesday. There is question of atypical pneumonia on CT scan. The patient will require further evaluation and management in the hospital. The case was discussed with the hospitalist service and they will evaluate the patient. The patient was also seen and examined by who agrees with the assessment and treatment plan. Medical Decision DIFFERENTIAL DIAGNOSIS: Aortic dissection, myocarditis, pericarditis, cervical disc disease, costochondritis, herpes zoster, rib fracture, pleuritis, pneumonia , pulmonary embolus, tension pneumothorax, anxiety disorder, somatoform disorder , choledocholithiasis, status, esophagitis, esophageal spasm, esophageal reflux , esophageal rupture, pancreatitis, peptic ulcer disease, cardiac ischemia, ST elevation LA, acute coronary syndrome, arrhythmia, coronary artery vasospasm. vavular heart disease, coronary artery disease, among others. Blood Pressure Screening Patient's blood pressure: Elevated blood pressure Blood pressure disposition: Elevated BP felt to be situational Impression Primary Impression: Atypical pneumonia Additional Impression: Dyspnea Departure Information Dispostion Admitted as an inpatient Referrals Jairo Escobar M.D. (PCP) Patient Instructions My [facility] Problem Qualifiers
--- NOTE | 2017-01-29 11:55 | DIAGNOSTIC IMAGING REPORT ---
CHEST ONE VIEW PORTABLE CLINICAL HISTORY: chest pain, fever dyspnea COMPARISON STUDY: 04/24/2016 FINDINGS: The bones soft tissues and hemidiaphragms are normal. The cardiomediastinal silhouette is normal. The lungs are clear. The pulmonary vasculature is normal. IMPRESSION: Negative chest. The above report was generated using voice recognition software. It may contain grammatical, syntax or spelling errors. Electronically signed by: Raza Flores M.D. 01/29/2017 11:54 AM Dictated Date/Time: 01/29/2017 11:54 AM
[2017-01-29 11:58] LABS: BASO % 0.3 %; BASO ABS # 0.02 K/uL (0-0.2); COMPLETE YES; EOS % 2.4 %; HEMATOCRIT 38.5 % (37-47); IG% 0.3 %; LYMPH % 16.2 %; LYMPH ABS # 1.07 K/uL (1.2-3.4); MEAN CELL VOLUME 87.9 fL (80-100); MEAN CORPUSCULAR HEMOGLOBIN 29.7 pg (25-34); MEAN CORPUSCULAR HGB CONC 33.8 g/dl (32-36); MEAN PLATELET VOLUME 9.8 fL (7.4-10.4); MONO % 6.7 %; NEUT % 74.1 %; PLATELET COUNT 282 K/uL (130-400); RED BLOOD COUNT 4.38 M/uL (4.2-5.4); WHITE BLOOD COUNT 6.59 K/uL (4.8-10.8)
[2017-01-29 12:03] LABS: ALT/SGPT 44 U/L (12-78); BLOOD UREA NITROGEN 7 mg/dl (7-18); BUN/CREATININE RATIO 7.5 (10-20); CALCIUM 9.4 mg/dl (8.5-10.1); CARBON DIOXIDE 26 mmol/L (21-32); CHLORIDE 100 mmol/L (98-107); CREATININE 0.92 mg/dl (0.60-1.20); GLUCOSE 111 mg/dl (70-99); POTASSIUM 3.3 mmol/L (3.5-5.1); SODIUM 134 mmol/L (136-145)
[2017-01-29 12:09] LABS: PARTIAL THROMBOPLASTIN RATIO 1.1; PROTHROMBIN TIME (PATIENT) 10.7 SECONDS (9.0-12.0)
[2017-01-29 12:13] LABS: ALB/GLOB RATIO 0.7 (0.9-2); ALKALINE PHOSPHATASE 95 U/L (45-117); AST/SGOT 41 U/L (15-37)
[2017-01-29] MEDS ORDERED: OPTIRAY 320 IV PRN (12:30)
[2017-01-29 13:03] LABS: URINE APPEARANCE CLEAR (CLEAR); URINE BILIRUBIN NEG (NEG); URINE COLOR YELLOW; URINE NITRITE NEG (NEG); URINE SPECIFIC GRAVITY 1.016 (1.000-1.030); UROBILINOGEN NEG (NEG); ZZUR CULT IF INDIC CLEAN CATCH NO
[2017-01-29 13:18] LABS: MANUAL MICROSCOPIC REQUIRED? NO; REVIEW REQ? NO
--- NOTE | 2017-01-29 13:23 | DIAGNOSTIC IMAGING REPORT ---
ABD/PELVIS IV CONTRAST ONLY CT DOSE: HISTORY: Pain ll. Pain, fever, on cell cept TECHNIQUE: Multiaxial CT images of the abdomen and pelvis were performed following the use of intravenous contrast. A dose lowering technique was utilized adhering to the principles of ALARA. COMPARISON STUDY: 10/22/2016 FINDINGS: The lung bases are clear. The liver, spleen, gallbladder, pancreas, kidneys, and adrenal glands are within normal limits. No bowel wall thickening or obstruction. The pelvic organs are unremarkable. No suspicious lytic or blastic osseous lesions. Postoperative changes consistent with a low lumbar laminectomy. IMPRESSION: No acute process the abdomen or pelvis. The above report was generated using voice recognition software. It may contain grammatical, syntax or spelling errors. Electronically signed by: Raza Flores M.D. 01/29/2017 1:21 PM Dictated Date/Time: 01/29/2017 1:17 PM
--- NOTE | 2017-01-29 13:27 | DIAGNOSTIC IMAGING REPORT ---
(CHEST FOR PE) ANGIO WITH CT DOSE: 656.35 mGy.cm HISTORY: 51 years-old Female presents with fever and elevated d-dimer. Left lower quadrant abdominal pain. TECHNIQUE: Multiple CTA images of the chest were obtained after the intravenous administration of 92 ml Optiray 320. Coronal and sagittal MIPS were obtained from the axial data set and were submitted for review. A dose lowering technique was utilized adhering to the principles of ALARA. COMPARISON: CT abdomen and pelvis of same day. FINDINGS: CTA: There is adequate opacification of the pulmonary arteries to the level of the subsegmental branches without convincing evidence of acute pulmonary embolism. The thoracic aorta is normal in course and caliber. Heart size is normal. There is minimal reflux of contrast into the IVC, likely secondary to injection technique. CT CHEST: Thyroid is homogeneous. Mild right hilar adenopathy measuring up to 1.9 x 1.4 cm is noted. Mild left hilar and prevascular lymph nodes are also seen measuring up to 1.7 x 0.8 cm. There is no pneumothorax or pleural effusion. Moderate paraseptal and centrilobular emphysematous changes are noted. Multifocal multilobar distribution of groundglass opacities are noted diffusely throughout the lungs bilaterally. There is moderate bronchial wall thickening in a multilobar distribution. Additionally, there are areas of mosaic attenuation and interlobular septal thickening. The imaged upper abdominal structures are within normal limits. Soft tissues are unremarkable. Bones are intact with mild multilevel endplate spurring throughout the spine. IMPRESSION: 1. No evidence of acute aortic pathology or pulmonary thromboembolic disease. 2. Multifocal multilobar distribution of diffuse groundglass opacities are noted with associated bronchial wall thickening, mosaic attenuation and interlobular septal thickening. These findings are nonspecific with differential considerations including atypical pneumonia with bronchitis or pulmonary edema among other etiologies. Follow-up imaging to document resolution is recommended. 3. Background moderate centrilobular and paraseptal emphysema. The above report was generated using voice recognition software. It may contain grammatical, syntax or spelling errors. Electronically signed by: Laron Garcia M.D. 01/29/2017 1:26 PM Dictated Date/Time: 01/29/2017 1:17 PM
[2017-01-29] MEDS ORDERED: OXYC1CAP5 PO (13:57)
[2017-01-29] MEDS ORDERED: TPRSR/25 PO (13:57)
[2017-01-29] MEDS ORDERED: CHOL2000 PO (13:57)
[2017-01-29] MEDS ORDERED: LEVAQUIN 750MG / 150ML D5W IV STA (14:20)
--- NOTE | 2017-01-29 14:38 | EMERGENCY ROOM VISIT NOTE ---
ED Visit Note First contact with patient: 11:21 Staff note: I have reviewed the Patients chart and have discussed this case with my PA. I generally agree with the ED note and findings.
--- NOTE | 2017-01-29 17:14 | History and Physical ---
History & Physical Date & Time of Service: Jan 29, 2017 at 17:14 Chief Complaint: Sob/Chest Pain Primary Care Physician: Jairo Escobar M.D. History of Present Illness Source: patient The patient is a 51-year-old female with a past medical history of celiac disease, Sjogren's, lupus, SVT status post ablation, and hypertension that presents with a five-day history of cough and fever. The patient began to have a cough and fever on Wednesday and is currently on CellCept, so she contacted her science editor who told her to stop taking the CellCept. She has had intermittent fevers that were recorded at home that were higher than 101. The patient states that she has been lightheaded with standing up and has felt very fatigued. She also has been complaining of a dry throat and suprapubic pressure. She states that her shortness of breath feels like when she breathes then there is a heavy pressure that is limiting her breathing. She denies any chest pain. She also denies any upper respiratory symptoms. She states that she has not eaten in the past 2 days due to fatigue. She has also not taken any of her medications today. The patient also complains of diarrhea for the last 2 days, but she states that secondary to her IBS and celiac that diarrhea is fairly frequent. The patient is concerned because last last year she was seen in the hospital for an episode of hypertension and started on lisinopril. Shortly thereafter she was found to have elevated liver function tests, and is the reason that she was started on the CellCept. Subsequent liver biopsies have showed some fatty liver infiltration but no degree of cirrhosis. She also has an extensive smoking history of 36 years with one pack per day smoking. 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 (2) CHR MAXILLARY SINUSITIS Status: Chronic (3) DEPRESSIVE DISORDER NEC Status: Chronic (4) HYPERLIPIDEMIA NEC/NOS Status: Chronic (5) Lupus Status: Chronic (6) Raynaud's disease Status: Chronic (7) Sjogren's disorder Status: Chronic (8) SYST LUPUS ERYTHEMATOSIS Status: Chronic (9) TOBACCO USE DISORDER Status: Chronic Family History Cancer Gallbladder disease Heart disease Hypertension Kidney disease Kidney stones Lung disease Social History Smoking Status: Former Smoker Drug Use: none Marital Status: Housing status: lives with family Occupational Status: unemployed Immunizations History of Influenza Vaccine: Yes History of Tetanus Vaccine?: Yes History of Pneumococcal: Yes History of Hepatitis B Vaccine: No Multi-Drug Resistant Organisms History of MDRO: No Allergies Coded Allergies: Penicillins (Verified Allergy, Intermediate, passes out as a child, ) Vancomycin (Verified Allergy, Intermediate, red man syndrome, 01/29/17) Home Medications Scheduled Amitriptyline Hcl (Elavil), 20 MG PO HS Aspirin (Aspirin Ec), 81 MG PO DAILY Cholecalciferol (Vitamin D3), 2 CAP PO DAILY Fluoxetine Hcl (Prozac), 80 MG PO DAILY Folic Acid (Folic Acid), 1 MG PO DAILY Gabapentin (Gabapentin), 900 MG PO TID Lisinopril (Lisinopril), 40 MG PO QAM Metoprolol Succinate (Metoprolol Succinate ER), 1 TAB PO DAILY Oxycodone Hcl (Oxycodone Hcl), 1 CAP PO QID Prednisone (Prednisone), 2 TAB PO DAILY Zolpidem Tartrate (Zolpidem Tartrate), 10 MG PO HS Review of Systems Constitutional: + fever, + chills, + fatigue, No weight loss Respiratory: + cough, + shortness of breath, + dyspnea on exertion, + dyspnea at rest, No sputum Cardiovascular: No chest pain, No palpitations Abdomen: + diarrhea, + problem reported (suprapubic tenderness), No pain, No nausea, No vomiting, No GI bleeding Genitourinary - Female: No dysuria, No urinary frequency, No urinary urgency, No urinary incontinence Endocrine: + fatigue, + excessive thirst (dry mouth secondary to Sjogren's) Integumentary: No rash Physical Exam Vital Signs Date Time Temp Pulse Resp B/P (MAP) Pulse Ox O2 Delivery O2 Flow Rate FiO2 01/29/17 16:29 72 01/29/17 16:16 79 22 145/61 98 Room Air 2.0 01/29/17 14:37 64 20 152/74 97 Nasal Cannula 3.0 01/29/17 14:31 94 93 Room Air 01/29/17 13:13 66 20 153/78 98 Nasal Cannula 2.0 01/29/17 12:30 61 01/29/17 12:25 99 Nasal Cannula 2.0 01/29/17 12:23 59 22 221/84 99 Nasal Cannula 2.0 01/29/17 11:04 36.7 76 20 154/89 95 Room Air General Appearance: WD/WN, no apparent distress Head: normocephalic, atraumatic Respiratory/Chest: chest non-tender, lungs clear, + decreased breath sounds, + rales Cardiovascular: regular rate, rhythm, no edema, no gallop Abdomen/GI: normal bowel sounds, soft, + pertinent finding (suprapubic tenderness) Back: normal inspection, no CVA tenderness Extremities/Musculoskelatal: normal inspection, no calf tenderness, no pedal edema Neurologic/Psych: alert, normal mood/affect, normal reflexes Diagnostics Laboratory Results Results Past 24 Hours Test 01/29/17 11:20 01/29/17 11:34 01/29/17 12:15 01/29/17 12:30 Range/Units White Blood Count 6.59 4.8-10.8 K/uL Red Blood Count 4.38 4.2-5.4 M/uL Hemoglobin 13.0 12.0-16.0 g/dL Hematocrit 38.5 37-47 % Mean Corpuscular Volume 87.9 80-100 fL Mean Corpuscular Hemoglobin 29.7 25-34 pg Mean Corpuscular Hemoglobin Concent 33.8 32-36 g/dl Platelet Count 282 130-400 K/uL Mean Platelet Volume 9.8 7.4-10.4 fL Neutrophils (%) (Auto) 74.1 % Lymphocytes (%) (Auto) 16.2 % Monocytes (%) (Auto) 6.7 % Eosinophils (%) (Auto) 2.4 % Basophils (%) (Auto) 0.3 % Neutrophils # (Auto) 4.88 1.4-6.5 K/uL Lymphocytes # (Auto) 1.07 1.2-3.4 K/uL Monocytes # (Auto) 0.44 0.11-0.59 K/uL Eosinophils # (Auto) 0.16 0-0.5 K/uL Basophils # (Auto) 0.02 0-0.2 K/uL RDW Standard Deviation 40.4 36.4-46.3 fL RDW Coefficient of Variation 12.5 11.5-14.5 % Immature Granulocyte % (Auto) 0.3 % Immature Granulocyte # (Auto) 0.02 0.00-0.02 K/uL Prothrombin Time 10.7 9.0-12.0 SECONDS Prothromb Time International Ratio 1.0 0.9-1.1 Activated Partial Thromboplast Time 28.3 21.0-31.0 SECONDS Partial Thromboplastin Ratio 1.1 D-Dimer 990 0-500 ug/L FEU Sodium Level 134 136-145 mmol/L Potassium Level 3.3 3.5-5.1 mmol/L Chloride Level 100 98-107 mmol/L Carbon Dioxide Level 26 21-32 mmol/L Anion Gap 8.0 3-11 mmol/L Blood Urea Nitrogen 7 7-18 mg/dl Creatinine 0.92 0.60-1.20 mg/dl Est Creatinine Clear Calc Drug Dose 75.6 ml/min Estimated GFR () 83.6 Estimated GFR (Non- 72.1 BUN/Creatinine Ratio 7.5 10-20 Random Glucose 111 70-99 mg/dl Calcium Level 9.4 8.5-10.1 mg/dl Magnesium Level 2.0 1.8-2.4 mg/dl Total Bilirubin 0.5 0.2-1 mg/dl Aspartate Amino Transf (AST/SGOT) 41 15-37 U/L Alanine Aminotransferase (ALT/SGPT) 44 12-78 U/L Alkaline Phosphatase 95 45-117 U/L Creatine Kinase MB 0.5 0.5-3.6 ng/ml Troponin I < 0.015 0-0.045 ng/ml Total Protein 7.6 6.4-8.2 gm/dl Albumin 3.0 3.4-5.0 gm/dl Globulin 4.6 2.5-4.0 gm/dl Albumin/Globulin Ratio 0.7 0.9-2 Lipase 151 73-393 U/L Thyroid Stimulating Hormone (TSH) 3.540 0.300-4.500 uIu/ml Monoscreen NEG NEG Creatine Kinase MB Ratio 0-3.0 Lactic Acid Level 1.6 0.4-2.0 mmol/L Urine Color YELLOW Urine Appearance CLEAR CLEAR Urine pH 7.0 4.5-7.5 Urine Specific [place] 1.016 1.000-1.030 Urine Protein NEG NEG Urine Glucose (UA) NEG NEG Urine Ketones NEG NEG Urine Occult Blood NEG NEG Urine Nitrite NEG NEG Urine Bilirubin NEG NEG Urine Urobilinogen NEG NEG Urine Leukocyte Esterase TRACE NEG Urine WBC (Auto) 1-5 0-5 /hpf Urine RBC (Auto) 0-4 0-4 /hpf Urine Hyaline Casts (Auto) 0 0-5 /lpf Urine Epithelial Cells (Auto) 10-20 0-5 /lpf Urine Bacteria (Auto) NEG NEG Microbiology Results 01/29/17 Blood Culture, Received Pending 01/29/17 Blood Culture, Received Pending CXR normal other (sinus bradycardia) Impression Assessment and Plan Patient is a 51-year-old immunocompromised female that presents with shortness of breath 1) Acute hypoxic respiratory distress - Secondary to possible pneumonia - Levaquin 750 mg daily - Immunocompromised with CellCept - Currently requiring 2 L of oxygen by nasal cannula - CT of the chest shows ground glass opacities throughout the lungs bilaterally , along with bronchial wall thickening - DuoNeb's every 4 hours scheduled, and every 2 hours as needed for shortness of breath - Flutter valve - Center spirometry 2) 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 lupus - Patient has not taken the CellCept since Wednesday - White blood cell count is within normal limits - Continue home prednisone 10 mg 3) Chest pressure - Chest x-ray shows no acute findings - EKG sinus bradycardia, repeat EKG ordered for tomorrow morning - Troponins ordered - Aspirin 4) History of SVT - Metoprolol 5) DVT prophylaxis - Lovenox 40 mg 6) CODE STATUS - Full resuscitation 7) Disposition - Admit to telemetry Level of Care Telemetry Resuscitation Status FULL RESUSCITATION VTE Prophylaxis VTE Risk Assessment Done? Y/N: Yes Risk Level: Moderate Given or contraindicated: Enoxaparin (Lovenox) Resident Tracking Resident Involvement: Resident Care Provided Care Provided: Adult Hospital Medicine History Resident Physician Supervision Note: I was present with Dr. Goodwin during the history and exam. I discussed the case with the resident and agree with the findings and plan as documented in the note. Any exceptions or clarifications are listed here. 51 y/o female h/o multiple autoimmune diseases managed presently on prednisone and cellcept presents w/ fever, cough and SOB for five days. Minimal improvement after d/c cellcept w/ significant SOB prior to presentation. Feels improved comfort on O2 and since starting IV abx. Also having persistent suprapubic pressure sensation for 3-5 days as well without hematuria, dysuria or nausea/vomiting. General Appearance: WD/WN, no apparent distress Respiratory: chest non-tender, no respiratory distress, decreased breath sounds , rhonchi Cardiovascular: normal peripheral pulses, regular rate, rhythm, no edema, no murmur Gastrointestinal: normal bowel sounds, non tender, soft, no organomegaly Neurologic/Psychiatric: no motor/sensory deficits, alert, normal mood/affect, oriented x 3 Assessment/Plan 51 y/o female h/o multiple autoimmune disorders presenting w/ SOB w/ groundglass opacities on imaging concerning for PNA CAP - BCx, IV levofloxacin, duonebs, IS/flutter valve, O2 per protocol, trend CBC, BMP in AM Chest pressure - trend troponins, telemetry monitoring, ASA 81mg Abdominal pressure - UA SLE, Sjogren's - hold cellcept, continue prednisone (t/c increase to stress dosing) SVT hx - continue metoprolol Depression - continue fluoxetine, amitriptyline Chronic pain - continue oxycodone, amitriptyline HLD - continue statin therapy
[2017-01-29] MEDS ORDERED: POLYETHYLENE (MIRALAX) 17 GM PACK PO PRN (17:15)
[2017-01-29] MEDS ORDERED: ZOLPIDEM TARTRATE 5 MG TAB PO PRN (17:15)
[2017-01-29] MEDS ORDERED: ACETAMINOPHEN 325 MG TAB PO PRN (17:15)
[2017-01-29] MEDS ORDERED: ALUMINUM/MAGNESIUM/SIMETH (MAALOX MAX) 30 ML UDC PO PRN (17:15)
[2017-01-29] MEDS ORDERED: HEPARIN SOD 5000 UNIT/0.5 ML CARP SQ SCH ×2 (17:15→17:45)
[2017-01-29] MEDS ORDERED: ONDANSETRON INJ 2 MG/ML 2 ML VIAL IV PRN (17:15)
[2017-01-29] MEDS ORDERED: MAGNESIUM HYDROXIDE SUSP 30 ML UDC PO PRN ×2 (17:15→17:45)
[2017-01-29] MEDS ORDERED: OXYCODONE HCL IR 5 MG TAB (IMMEDIATE RELEASE) PO PRN (17:45)
[2017-01-29] MEDS: ALBUT/IPRATROP 3MG/0.5MG NEB 3 ML VIAL INH SCH (19:25)
[2017-01-29 19:37] VITALS: PULSE 81; O2SAT 98
[2017-01-29] MEDS ORDERED: ALBUT/IPRATROP 3MG/0.5MG NEB 3 ML VIAL INH SCH (20:00)
[2017-01-29] MEDS: ONDANSETRON INJ 2 MG/ML 2 ML VIAL IV PRN (20:11)
[2017-01-29] MEDS: ASPIRIN 81 MG ECTAB PO SCH (20:22)
[2017-01-29] MEDS: FLUOXETINE HCL 20 MG CAP PO SCH (20:24)
[2017-01-29] MEDS: OXYCODONE HCL IR 5 MG TAB (IMMEDIATE RELEASE) PO SCH (20:42)
[2017-01-29] MEDS ORDERED: AMITRIPTYLINE HCL 10 MG TAB PO SCH (21:00)
[2017-01-29] MEDS ORDERED: ZOLPIDEM TARTRATE 10 MG TAB PO SCH (21:00)
[2017-01-29] MEDS ORDERED: GABAPENTIN 300 MG CAP PO SCH (21:00)
[2017-01-29] MEDS: AMITRIPTYLINE HCL 10 MG TAB PO SCH (21:19)
[2017-01-29] MEDS: GABAPENTIN 300 MG CAP PO SCH (21:19)
[2017-01-29] MEDS: ACETAMINOPHEN 325 MG TAB PO PRN (21:22)
[2017-01-29] MEDS: ZOLPIDEM TARTRATE 5 MG TAB PO PRN (21:23)
[2017-01-29 23:12] VITALS: BP 102/67; PULSE 94; TEMP 37.6; O2SAT 98; Ht 175.3 cm; Wt 77.3 kg
[2017-01-30] VITALS (11 sets, daily range): BP systolic 92–125; BP diastolic 50–69; PULSE 58–90; TEMP 36.9–37.7; O2SAT 90–100
[2017-01-30] MEDS: OXYCODONE HCL IR 5 MG TAB (IMMEDIATE RELEASE) PO SCH ×4 (06:05→21:26)
[2017-01-30] MEDS: ALBUT/IPRATROP 3MG/0.5MG NEB 3 ML VIAL INH SCH ×4 (07:03→19:08)
[2017-01-30] MEDS: ACETAMINOPHEN 325 MG TAB PO PRN ×2 (07:11→18:15)
[2017-01-30 07:16] LABS: HEMATOCRIT 37.6 % (37-47); MEAN CORPUSCULAR HEMOGLOBIN 29.5 pg (25-34); MEAN CORPUSCULAR HGB CONC 34.3 g/dl (32-36); MEAN PLATELET VOLUME 9.5 fL (7.4-10.4); PLATELET COUNT 270 K/uL (130-400); RED BLOOD COUNT 4.37 M/uL (4.2-5.4); WHITE BLOOD COUNT 6.36 K/uL (4.8-10.8)
[2017-01-30 07:34] LABS: BLOOD UREA NITROGEN 7 mg/dl (7-18); BUN/CREATININE RATIO 8.2 (10-20); CALCIUM 9.4 mg/dl (8.5-10.1); CARBON DIOXIDE 25 mmol/L (21-32); CHLORIDE 99 mmol/L (98-107); CREATININE 0.85 mg/dl (0.60-1.20); GLUCOSE 76 mg/dl (70-99); POTASSIUM 3.7 mmol/L (3.5-5.1); SODIUM 133 mmol/L (136-145)
[2017-01-30] MEDS: GABAPENTIN 300 MG CAP PO SCH ×3 (08:19→21:25)
[2017-01-30] MEDS: LISINOPRIL 40 MG TAB PO SCH (08:20)
[2017-01-30] MEDS: ENOXAPARIN 40 MG/0.4 ML SYR SQ SCH (08:20)
[2017-01-30] MEDS: FLUOXETINE HCL 20 MG CAP PO SCH (08:22)
[2017-01-30] MEDS: METOPROLOL TARTRATE 25 MG TAB PO SCH (08:23)
[2017-01-30] MEDS: CHOLECALCIFEROL 1000 INTER.UNIT TAB PO SCH (08:25)
[2017-01-30] MEDS: ASPIRIN 81 MG ECTAB PO SCH (08:27)
[2017-01-30] MEDS ORDERED: CHOLECALCIFEROL PO SCH (09:00)
[2017-01-30] MEDS ORDERED: ASPIRIN 81 MG ECTAB PO SCH (09:00)
[2017-01-30] MEDS ORDERED: FLUOXETINE HCL 20 MG CAP PO SCH (09:00)
[2017-01-30] MEDS ORDERED: METOPROLOL SUCC 25MG EXT REL TAB PO SCH (09:00)
[2017-01-30] MEDS ORDERED: LISINOPRIL 40 MG TAB PO SCH (09:00)
[2017-01-30] MEDS: SODIUM CHLORIDE 0.45% 1000ML 1,000 ML IV SCH ×2 (11:38→23:39)
[2017-01-30] MEDS ORDERED: MoRPHine SULFATE 2 MG/ML CARP IV ONE (11:45)
[2017-01-30] MEDS: MoRPHine SULFATE 2 MG/ML CARP ONE ×2 (11:56→12:11)
[2017-01-30] MEDS: LEVOFLOXACIN / D5W 750 MG in PREMIXED IN D5W 150 ML IV SCH (13:54)
--- NOTE | 2017-01-30 16:57 | Family Medicine Progress Note ---
Progress Note Date of Service Jan 30, 2017. Subjective Pt evaluation today including: conversation w/ patient, physical exam, lab review Pt seen and examined at bedside. Feeling 60% improved with decreased shortness of breath and improved cough at rest. Afebrile since admission. Mild headache which has been gradually improving since yesterday. Stable chronic lower back pain for which she is asking for meds as she missed her scheduled oxy yesterday. Reports no nausea/vomiting, lightheadedness, paresthesias. Constitutional: No fever, No chills, No sweats Respiratory: + cough, + sputum, + shortness of breath, + dyspnea on exertion Cardiovascular: No chest pain, No PND, No palpitations Abdomen: No pain, No nausea, No vomiting, No diarrhea Neurologic: + problem reported ([place]), No weakness, No numbness/tingling Medications Current Inpatient Medications Medications (Trade) Dose Ordered Sig/Miranda Route Start Time Stop Time Status Last Admin Dose Admin Ioversol (Optiray 320) 100 ml UD PRN IV 01/29/17 12:30 02/02/17 12:29 Acetaminophen (Tylenol Tab) 650 mg Q4H PRN PO 01/29/17 17:45 02/28/17 17:44 01/30/17 07:11 650 MG Al Hydrox/Mg Hydrox/Simethicone (Maalox Max Susp) 15 ml Q4H PRN PO 01/29/17 17:45 02/28/17 17:44 Magnesium Hydroxide (Milk Of Magnesia Susp) 30 ml Q6H PRN PO 01/29/17 17:45 02/28/17 17:44 Polyethylene (Miralax Powder Packet) 17 gm DAILY PRN PO 01/29/17 17:45 02/28/17 17:44 Ondansetron HCl (Zofran Inj) 4 mg Q6H PRN IV 01/29/17 17:45 02/28/17 17:44 01/29/17 20:11 4 MG Zolpidem Tartrate (Ambien Tab) 5 mg HSZ PRN PO 01/29/17 17:45 02/28/17 17:44 01/29/17 21:23 5 MG Albuterol/ Ipratropium (Duoneb) 3 ml QIDR INH 01/29/17 20:00 02/28/17 19:59 01/30/17 14:50 3 ML Enoxaparin Sodium (Lovenox Inj) 40 mg QAM SQ 01/30/17 09:00 03/01/17 08:59 01/30/17 08:20 40 MG Levofloxacin 750 mg/Prmx 150 ml @ 100 mls/hr Q24H IV 01/30/17 14:00 02/01/17 13:59 01/30/17 13:54 100 MLS/HR Amitriptyline HCl (Elavil Tab) 20 mg HS PO 01/29/17 21:00 02/28/17 20:59 01/29/17 21:19 20 MG Aspirin (Ecotrin Tab) 81 mg DAILY PO 01/29/17 18:30 02/28/17 18:29 01/30/17 08:27 81 MG Cholecalciferol (Vitamin D Tab) 2,000 inter.unit DAILY PO 01/30/17 09:00 03/01/17 08:59 01/30/17 08:25 2,000 INTER.UNIT Fluoxetine HCl (Prozac Cap) 80 mg QAM PO 01/29/17 18:30 02/28/17 18:29 01/30/17 08:22 80 MG Gabapentin (Neurontin Cap) 900 mg TID PO 01/29/17 21:00 02/28/17 20:59 01/30/17 13:55 900 MG Lisinopril (Zestril Tab) 40 mg QAM PO 01/30/17 09:00 03/01/17 08:59 01/30/17 08:20 40 MG Metoprolol Tartrate (Lopressor Tab) 25 mg QAM PO 01/30/17 09:00 03/01/17 08:59 Oxycodone HCl (Roxicodone Immediate Rel Tab) 5 mg QID PO 01/29/17 21:00 02/12/17 20:59 01/30/17 13:54 5 MG Prednisone (PredniSONE TAB) 10 mg DAILY PO 01/30/17 09:00 03/01/17 08:59 01/30/17 08:26 10 MG Sodium Chloride 1,000 ml @ 100 mls/hr Q10H IV 01/30/17 11:30 03/01/17 11:29 01/30/17 11:38 100 MLS/HR Objective Vital Signs Date Time Temp Pulse Resp B/P (MAP) Pulse Ox O2 Delivery O2 Flow Rate FiO2 01/30/17 16:00 Nasal Cannula 2.0 01/30/17 15:57 84 18 106/69 (81) 98 Ambu-Bag 1.5 01/30/17 14:50 67 16 100 Nasal Cannula 2.0 01/30/17 12:13 37.4 87 18 100/67 (78) 100 Nasal Cannula 2.0 01/30/17 12:00 Nasal Cannula 2.0 01/30/17 11:05 78 16 97 Nasal Cannula 3.0 01/30/17 08:29 36.9 80 18 92/59 (70) 98 Nasal Cannula 2.0 01/30/17 08:00 Nasal Cannula 2.0 01/30/17 07:03 71 16 94 Nasal Cannula 3.0 01/30/17 04:00 98 Nasal Cannula 4.0 01/30/17 03:34 37.0 58 18 102/58 (73) 98 Nasal Cannula 4.0 01/30/17 00:00 96 Nasal Cannula 4.0 01/30/17 00:00 67 102/66 (78) 96 Nasal Cannula 2.0 01/29/17 23:12 37.6 94 102/67 98 Nasal Cannula 4.0 01/29/17 19:37 81 16 98 Nasal Cannula 4.0 01/29/17 19:15 68 20 107/58 97 Nasal Cannula 2.0 01/29/17 17:44 72 17 146/96 95 Physical Exam General Appearance: WD/WN, no apparent distress Respiratory/Chest: chest non-tender, no respiratory distress, + decreased breath sounds Cardiovascular: regular rate, rhythm, no edema, no murmur Abdomen: normal bowel sounds, non tender, soft, no organomegaly Laboratory Results 01/30/17 06:31 01/30/17 06:31 Test 01/30/17 06:31 Red Blood Count 4.37 M/uL (4.2-5.4) Mean Corpuscular Volume 86.0 fL (80-100) Mean Corpuscular Hemoglobin 29.5 pg (25-34) Mean Corpuscular Hemoglobin Concent 34.3 g/dl (32-36) RDW Standard Deviation 40.3 fL (36.4-46.3) RDW Coefficient of Variation 12.6 % (11.5-14.5) Mean Platelet Volume 9.5 fL (7.4-10.4) Anion Gap 9.0 mmol/L (3-11) Est Creatinine Clear Calc Drug Dose 81.9 ml/min Estimated GFR () 92.0 Estimated GFR (Non- 79.3 BUN/Creatinine Ratio 8.2 (10-20) Calcium Level 9.4 mg/dl (8.5-10.1) Troponin I < 0.015 ng/ml (0-0.045) Assessment/Plan 51 y/o female h/o multiple autoimmune disorders presenting w/ SOB w/ groundglass opacities on imaging concerning for PNA CAP - f/u BCx - IV levofloxacin (day2) - continue duonebs, IS/flutter valve, O2 per protocol, trend CBC, BMP Chest pressure - resolved - troponins neg, telemetry monitoring, ASA 81mg - transition from tele in AM Abdominal pressure - resolved - UA SLE, Sjogren's - holding cellcept, continue prednisone (t/c increase to stress dosing) - will have outpatient SVT hx - continue metoprolol Depression - continue fluoxetine, amitriptyline Chronic pain - continue oxycodone, amitriptyline HLD - continue statin therapy
[2017-01-30] MEDS ORDERED: NURSING VERBAL MED ORDER ONE (19:00)
[2017-01-30 20:11] LABS: URINE APPEARANCE CLEAR (CLEAR); URINE BILIRUBIN NEG (NEG); URINE COLOR YELLOW; URINE EPITHELIAL CELL AUTO >30 /lpf (0-5); URINE NITRITE NEG (NEG); URINE PH 6.5 (4.5-7.5); URINE SPECIFIC GRAVITY 1.013 (1.000-1.030); UROBILINOGEN NEG (NEG)
[2017-01-30 20:21] LABS: MANUAL MICROSCOPIC REQUIRED? NO; REVIEW REQ? NO
[2017-01-30] MEDS: ZOLPIDEM TARTRATE 5 MG TAB PO PRN (21:26)
[2017-01-30] MEDS: AMITRIPTYLINE HCL 10 MG TAB PO SCH (21:26)
[2017-01-30] MEDS ORDERED: SODIUM CHLORIDE 0.65% NA SOLN 45 ML (OCEAN) ONE (23:27)
[2017-01-31] VITALS (14 sets, daily range): BP systolic 84–120; BP diastolic 50–76; PULSE 66–100; TEMP 36.4–39.5; O2SAT 90–96
[2017-01-31] MEDS: ACETAMINOPHEN 325 MG TAB PO PRN ×2 (00:31→23:18)
[2017-01-31] MEDS: ALBUT/IPRATROP 3MG/0.5MG NEB 3 ML VIAL INH SCH ×4 (06:52→19:10)
[2017-01-31] MEDS ORDERED: LINEZOLID 600MG / D5W IV SCH (08:00)
[2017-01-31] MEDS ORDERED: CEFEPIME CONSULT ACTIVE PRN ×2 (08:00)
[2017-01-31 08:22] LABS: BASO % 0.1 %; BASO ABS # 0.01 K/uL (0-0.2); COMPLETE YES; EOS % 1.3 %; HEMATOCRIT 38.2 % (37-47); IG% 0.2 %; LYMPH % 8.7 %; LYMPH ABS # 0.94 K/uL (1.2-3.4); MEAN CORPUSCULAR HEMOGLOBIN 28.6 pg (25-34); MEAN CORPUSCULAR HGB CONC 33.2 g/dl (32-36); MEAN PLATELET VOLUME 9.8 fL (7.4-10.4); MONO % 4.6 %; NEUT % 85.1 %; PLATELET COUNT 280 K/uL (130-400); RED BLOOD COUNT 4.44 M/uL (4.2-5.4); WHITE BLOOD COUNT 10.84 K/uL (4.8-10.8)
[2017-01-31] MEDS: METOPROLOL TARTRATE 25 MG TAB PO SCH (08:32)
[2017-01-31 08:54] LABS: BUN/CREATININE RATIO 5.4 (10-20); CALCIUM 9.1 mg/dl (8.5-10.1); CREATININE 0.9 mg/dl (0.60-1.20); POTASSIUM 3.5 mmol/L (3.5-5.1)
[2017-01-31] MEDS ORDERED: FLUOXETINE HCL 20 MG CAP PO SCH (09:00)
[2017-01-31] MEDS: CEFEPIME IV 2000 MG in DEXTROSE 5% 100ML IV SCH ×3 (09:09→23:29)
[2017-01-31] MEDS: GABAPENTIN 300 MG CAP PO SCH ×3 (09:10→21:34)
[2017-01-31] MEDS: ASPIRIN 81 MG ECTAB PO SCH (09:11)
[2017-01-31] MEDS: CHOLECALCIFEROL 1000 INTER.UNIT TAB PO SCH (09:12)
[2017-01-31] MEDS: ENOXAPARIN 40 MG/0.4 ML SYR SQ SCH (09:12)
[2017-01-31] MEDS ORDERED: NURSING VERBAL MED ORDER ONE ×4 (09:15→22:30)
[2017-01-31] MEDS: LISINOPRIL 40 MG TAB PO SCH (09:23)
[2017-01-31] MEDS: OXYCODONE HCL IR 5 MG TAB (IMMEDIATE RELEASE) PO SCH ×4 (09:23→21:34)
[2017-01-31] MEDS ORDERED: CHLORASEPTIC 1.4% SOLN 180 ML BTL MT PRN (09:30)
[2017-01-31] MEDS: LEVOFLOXACIN / D5W 750 MG in PREMIXED IN D5W 150 ML IV SCH (12:39)
--- NOTE | 2017-01-31 17:27 | Family Medicine Progress Note ---
Progress Note Date of Service Jan 31, 2017. Subjective Pt seen and examined at bedside. Overnight, patient was febrile to 39.5c and rec 'd tylenol. Presently, patient complains of fatigue and flushing which has improved w/ PO acetaminophen. She feels that her shortness of breath has been stable since yesterday and has a persistent cough. She reports no nausea, lightheadedness, CP/palpitations, leg swelling, paresthesias. Constitutional: + fever, + chills, + sweats, + fatigue Respiratory: + cough, + shortness of breath, No sputum, No wheezing Cardiovascular: No chest pain, No edema, No palpitations Abdomen: No pain, No nausea, No vomiting, No diarrhea Neurologic: No weakness, No numbness/tingling Medications Current Inpatient Medications Medications (Trade) Dose Ordered Sig/Miranda Route Start Time Stop Time Status Last Admin Dose Admin Ioversol (Optiray 320) 100 ml UD PRN IV 01/29/17 12:30 02/02/17 12:29 Acetaminophen (Tylenol Tab) 650 mg Q4H PRN PO 01/29/17 17:45 02/28/17 17:44 01/31/17 00:31 650 MG Al Hydrox/Mg Hydrox/Simethicone (Maalox Max Susp) 15 ml Q4H PRN PO 01/29/17 17:45 02/28/17 17:44 Magnesium Hydroxide (Milk Of Magnesia Susp) 30 ml Q6H PRN PO 01/29/17 17:45 02/28/17 17:44 Polyethylene (Miralax Powder Packet) 17 gm DAILY PRN PO 01/29/17 17:45 02/28/17 17:44 Ondansetron HCl (Zofran Inj) 4 mg Q6H PRN IV 01/29/17 17:45 02/28/17 17:44 01/29/17 20:11 4 MG Zolpidem Tartrate (Ambien Tab) 5 mg HSZ PRN PO 01/29/17 17:45 02/28/17 17:44 01/30/17 21:26 5 MG Albuterol/ Ipratropium (Duoneb) 3 ml QIDR INH 01/29/17 20:00 02/28/17 19:59 01/31/17 14:26 3 ML Enoxaparin Sodium (Lovenox Inj) 40 mg QAM SQ 01/30/17 09:00 03/01/17 08:59 01/31/17 09:12 40 MG Levofloxacin 750 mg/Prmx 150 ml @ 100 mls/hr Q24H IV 01/30/17 14:00 02/01/17 13:59 01/31/17 12:39 100 MLS/HR Amitriptyline HCl (Elavil Tab) 20 mg HS PO 01/29/17 21:00 02/28/17 20:59 01/30/17 21:26 20 MG Aspirin (Ecotrin Tab) 81 mg DAILY PO 01/29/17 18:30 02/28/17 18:29 01/31/17 09:11 81 MG Cholecalciferol (Vitamin D Tab) 2,000 inter.unit DAILY PO 01/30/17 09:00 03/01/17 08:59 01/31/17 09:12 2,000 INTER.UNIT Gabapentin (Neurontin Cap) 900 mg TID PO 01/29/17 21:00 02/28/17 20:59 01/31/17 12:37 900 MG Lisinopril (Zestril Tab) 40 mg QAM PO 01/30/17 09:00 03/01/17 08:59 01/31/17 09:23 40 MG Metoprolol Tartrate (Lopressor Tab) 25 mg QAM PO 01/30/17 09:00 03/01/17 08:59 Oxycodone HCl (Roxicodone Immediate Rel Tab) 5 mg QID PO 01/29/17 21:00 02/12/17 20:59 01/31/17 12:38 5 MG Prednisone (PredniSONE TAB) 10 mg DAILY PO 01/30/17 09:00 03/01/17 08:59 01/31/17 09:10 10 MG Cefepime HCl (Consult) 1 ea UD PRN N/A 01/31/17 08:00 03/02/17 07:59 Cefepime HCl 2000 mg/Dextrose 112.5 ml @ 225 mls/hr Q8H IV 01/31/17 08:00 02/07/17 07:59 01/31/17 09:09 225 MLS/HR Phenol (Chloraseptic 1.4% [place]) 1 sprays Q2H PRN MT 01/31/17 09:30 03/02/17 09:29 01/31/17 09:37 1 SPRAYS Fluoxetine HCl (Prozac Cap) 80 mg DAILY PO 02/01/17 09:00 03/03/17 08:59 Objective Vital Signs Date Time Temp Pulse Resp B/P (MAP) Pulse Ox O2 Delivery O2 Flow Rate FiO2 01/31/17 16:00 Nasal Cannula 2.0 01/31/17 15:33 37.0 73 18 84/52 (63) 90 Nasal Cannula 1.0 01/31/17 14:26 66 16 96 Nasal Cannula 2.0 01/31/17 14:00 73 92/64 (73) 01/31/17 12:24 36.7 77 18 86/50 (62) 91 Nasal Cannula 01/31/17 12:00 Nasal Cannula 2.0 01/31/17 11:04 67 16 90 Nasal Cannula 2.0 01/31/17 09:17 71 102/65 (77) 01/31/17 08:14 37.7 77 18 103/67 (79) 91 Nasal Cannula 2.0 01/31/17 08:00 Nasal Cannula 2.0 01/31/17 06:52 77 16 90 Nasal Cannula 2.0 01/31/17 04:00 37.4 81 16 106/68 (81) 92 Humidified Oxygen 2.0 01/31/17 04:00 Nasal Cannula 2.0 01/31/17 00:17 39.5 82 22 120/76 (91) 91 Nasal Cannula 1.0 01/31/17 00:02 Nasal Cannula 2.0 01/30/17 20:00 Nasal Cannula 2.0 01/30/17 19:18 37.7 90 18 125/50 (75) 93 Nasal Cannula 1.0 Humidified Oxygen 01/30/17 19:08 73 16 90 Nasal Cannula 1.0 Physical Exam General Appearance: no apparent distress, + obese Respiratory/Chest: chest non-tender, no respiratory distress, + decreased breath sounds, + rhonchi Cardiovascular: regular rate, rhythm, no edema, no gallop, no murmur Abdomen: normal bowel sounds, non tender, soft, no organomegaly Skin: warm/dry, no rash Laboratory Results 01/31/17 07:59 Red Blood Count 4.44, Mean Corpuscular Volume 86.0, Mean Corpuscular Hemoglobin 28.6, Mean Corpuscular Hemoglobin Concent 33.2, Mean Platelet Volume 9.8, Neutrophils (%) (Auto) 85.1, Lymphocytes (%) (Auto) 8.7, Monocytes (%) (Auto) 4.6, Eosinophils (%) (Auto) 1.3, Basophils (%) (Auto) 0.1, Neutrophils # (Auto) 9.23, Lymphocytes # (Auto) 0.94, Monocytes # (Auto) 0.50, Eosinophils # (Auto) 0.14, Basophils # (Auto) 0.01 01/31/17 07:59 Test 01/30/17 19:00 01/31/17 07:59 Urine Color YELLOW Urine Appearance CLEAR (CLEAR) Urine pH 6.5 (4.5-7.5) Urine Specific [place] 1.013 (1.000-1.030) Urine Protein NEG (NEG) Urine Glucose (UA) NEG (NEG) Urine Ketones NEG (NEG) Urine Occult Blood NEG (NEG) Urine Nitrite NEG (NEG) Urine Bilirubin NEG (NEG) Urine Urobilinogen NEG (NEG) Urine Leukocyte Esterase TRACE (NEG) Urine WBC (Auto) 1-5 /hpf (0-5) Urine RBC (Auto) 0-4 /hpf (0-4) Urine Hyaline Casts (Auto) 1-5 /lpf (0-5) Urine Epithelial Cells (Auto) >30 /lpf (0-5) Urine Bacteria (Auto) NEG (NEG) White Blood Count 10.84 K/uL (4.8-10.8) Red Blood Count 4.44 M/uL (4.2-5.4) Hemoglobin 12.7 g/dL (12.0-16.0) Hematocrit 38.2 % (37-47) Mean Corpuscular Volume 86.0 fL (80-100) Mean Corpuscular Hemoglobin 28.6 pg (25-34) Mean Corpuscular Hemoglobin Concent 33.2 g/dl (32-36) Platelet Count 280 K/uL (130-400) Mean Platelet Volume 9.8 fL (7.4-10.4) Neutrophils (%) (Auto) 85.1 % Lymphocytes (%) (Auto) 8.7 % Monocytes (%) (Auto) 4.6 % Eosinophils (%) (Auto) 1.3 % Basophils (%) (Auto) 0.1 % Neutrophils # (Auto) 9.23 K/uL (1.4-6.5) Lymphocytes # (Auto) 0.94 K/uL (1.2-3.4) Monocytes # (Auto) 0.50 K/uL (0.11-0.59) Eosinophils # (Auto) 0.14 K/uL (0-0.5) Basophils # (Auto) 0.01 K/uL (0-0.2) RDW Standard Deviation 40.1 fL (36.4-46.3) RDW Coefficient of Variation 12.6 % (11.5-14.5) Immature Granulocyte % (Auto) 0.2 % Immature Granulocyte # (Auto) 0.02 K/uL (0.00-0.02) Anion Gap 8.0 mmol/L (3-11) Est Creatinine Clear Calc Drug Dose 77.3 ml/min Estimated GFR () 85.8 Estimated GFR (Non- 74.0 BUN/Creatinine Ratio 5.4 (10-20) Calcium Level 9.1 mg/dl (8.5-10.1) Date/Time Source Procedure Growth Status 01/31/17 09:26 Nasal MRSA DNA Surveillance Screen - Final Specimen Negative for MRSA by DNA Probe Complete Assessment/Plan 51 y/o female h/o multiple autoimmune disorders presenting w/ SOB w/ groundglass opacities on imaging concerning for PNA CAP - recultured 2/2 fever on abx - IV levofloxacin (day3), cefepime (day1) - continue duonebs, IS/flutter valve, O2 per protocol, trend CBC, BMP, repeat CXR today Chest pressure - resolved - troponins neg, telemetry monitoring, ASA 81mg - transition from tele in AM Abdominal pressure - resolved - UA likely dirty catch w/ epithelial cells SLE, Sjogren's - holding cellcept, continue prednisone (t/c increase to stress dosing) SVT hx - continue metoprolol Depression - continue fluoxetine, amitriptyline Chronic pain - continue oxycodone, amitriptyline HLD - continue statin therapy
[2017-01-31] MEDS ORDERED: SODIUM CHLORIDE 0.9% 500ML 500 ML IV ONE (17:30)
[2017-01-31 18:25] LABS: HEMATOCRIT 31.7 % (37-47); MEAN CELL VOLUME 84.8 fL (80-100); MEAN CORPUSCULAR HEMOGLOBIN 27.8 pg (25-34); MEAN CORPUSCULAR HGB CONC 32.8 g/dl (32-36); MEAN PLATELET VOLUME 9.4 fL (7.4-10.4); PLATELET COUNT 243 K/uL (130-400); RED BLOOD COUNT 3.74 M/uL (4.2-5.4); WHITE BLOOD COUNT 9.86 K/uL (4.8-10.8)
--- NOTE | 2017-01-31 18:35 | DIAGNOSTIC IMAGING REPORT ---
CHEST 2 VIEWS ROUTINE CLINICAL HISTORY: Suspected pneumonia. Immune compromised patient. COMPARISON STUDY: 01/29/2017 FINDINGS: The cardiac and mediastinal contours are normal. Since the prior study, the patient developed mild diffuse interstitial pulmonary opacities. Given the clinical history, the findings likely represent a pneumonitis or drug reaction. There are no pleural effusions.[ IMPRESSION: Interval development of mild bilateral, predominantly interstitial, pulmonary opacities. Electronically signed by: Carmine Leonardo M.D. 01/31/2017 6:34 PM Dictated Date/Time: 01/31/2017 6:32 PM
[2017-01-31 18:44] LABS: BUN/CREATININE RATIO 7.1 (10-20); CALCIUM 8.6 mg/dl (8.5-10.1); CREATININE 0.87 mg/dl (0.60-1.20)
[2017-01-31 18:49] LABS: BASO % 0.1 %; BASO ABS # 0.01 K/uL (0-0.2); COMPLETE YES; EOS % 0.1 %; IG% 0.2 %; LYMPH % 3.4 %; LYMPH ABS # 0.34 K/uL (1.2-3.4); MONO % 4.6 %; NEUT % 91.6 %
[2017-01-31] MEDS ORDERED: SODIUM CHLORIDE 0.45% 1000ML 1,000 ML IV SCH (19:30)
[2017-01-31 19:54] LABS: POTASSIUM 4.1 mmol/L (3.5-5.1)
[2017-01-31] MEDS ORDERED: CALCIUM CARBONATE 500 MG CHEWABLE PO PRN (20:45)
[2017-01-31] MEDS: ALUMINUM/MAGNESIUM/SIMETH (MAALOX MAX) 30 ML UDC PO PRN (21:33)
[2017-01-31] MEDS: AMITRIPTYLINE HCL 10 MG TAB PO SCH (21:34)
[2017-01-31] MEDS: ZOLPIDEM TARTRATE 5 MG TAB PO PRN (21:34)
[2017-01-31] MEDS: ONDANSETRON INJ 2 MG/ML 2 ML VIAL IV PRN (22:16)
[2017-02-01] VITALS (13 sets, daily range): BP systolic 87–134; BP diastolic 41–76; PULSE 62–92; TEMP 36.2–38.6; O2SAT 81–99
[2017-02-01] MEDS ORDERED: PANTOprazole SOD 40 MG TAB PO PRN (00:15)
[2017-02-01 06:20] LABS: HEMATOCRIT 31.5 % (37-47); MEAN CELL VOLUME 85.4 fL (80-100); MEAN CORPUSCULAR HEMOGLOBIN 28.7 pg (25-34); MEAN CORPUSCULAR HGB CONC 33.7 g/dl (32-36); MEAN PLATELET VOLUME 9.4 fL (7.4-10.4); PLATELET COUNT 242 K/uL (130-400); RED BLOOD COUNT 3.69 M/uL (4.2-5.4)
[2017-02-01 06:55] LABS: CREATININE 0.81 mg/dl (0.60-1.20)
[2017-02-01] MEDS: ALBUT/IPRATROP 3MG/0.5MG NEB 3 ML VIAL INH SCH (07:00)
[2017-02-01] MEDS: CEFEPIME IV 2000 MG in DEXTROSE 5% 100ML IV SCH ×3 (08:29→23:39)
[2017-02-01] MEDS: OXYCODONE HCL IR 5 MG TAB (IMMEDIATE RELEASE) PO SCH ×4 (08:30→21:25)
[2017-02-01] MEDS: ASPIRIN 81 MG ECTAB PO SCH (08:31)
[2017-02-01] MEDS: GABAPENTIN 300 MG CAP PO SCH ×3 (08:32→21:25)
[2017-02-01] MEDS: FLUOXETINE HCL 20 MG CAP PO SCH (08:32)
[2017-02-01 08:33] LABS: BUN/CREATININE RATIO 9.4 (10-20); CALCIUM 8.6 mg/dl (8.5-10.1); CREATININE 0.77 mg/dl (0.60-1.20); POTASSIUM 4.2 mmol/L (3.5-5.1)
[2017-02-01] MEDS: ENOXAPARIN 40 MG/0.4 ML SYR SQ SCH (08:34)
[2017-02-01] MEDS: CHOLECALCIFEROL 1000 INTER.UNIT TAB PO SCH (08:34)
[2017-02-01] MEDS: METOPROLOL TARTRATE 25 MG TAB PO SCH (09:00)
[2017-02-01] MEDS: LISINOPRIL 40 MG TAB PO SCH (09:00)
[2017-02-01] MEDS: ACETAMINOPHEN 325 MG TAB PO PRN ×3 (09:46→23:39)
--- NOTE | 2017-02-01 10:37 | Clinical Documentation Query ---
RADHA Helms : CLINICAL DOCUMENTATION QUERIES QUERY 1 OF 2 Patient is a 51 year old immunocompromised female admitted for CAP. Antibiotic coverage initially included only Levaquin but Cefepime was added with note of "no fevers since broadening coverage". Sputum gram stain positive for moderate amount of gram positive cocci. As appropriate, consider documentation as below as this directly impacts DRG assignment. In your clinical opinion is this patient being managed for: ( ) (Possible/Suspected/Likely) Staphylococcal pneumonia ( ) Other explanation of clinical findings (Please Explain) ( ) Unable to determine (Please Define) ( ) Need to Discuss ( ) Not Agree The medical record reflects the following clinical findings, treatment, and risk factors. Clinical Indicators: As above Treatment: Cefepime Risk Factors: Immunosuppression QUERY 2 OF 2 Serum sodium 134 mmol/L on admission. Value this a.m. of 128 mmol/L. She has been treated with NSS and is being monitored with serial chemistries. In your clinical opinion is this patient being managed for: ( ) Hypo-osmolality and hyponatremia ( ) Other explanation of clinical findings (Please Explain) ( ) Unable to determine (Please Define) ( ) Need to Discuss ( ) Not Agree The medical record reflects the following clinical findings, treatment, and risk factors. Clinical Indicators: As above Treatment: She has been treated with NSS and is being monitored with serial chemistries. Risk Factors: Poor intake, diarrhea, medications Please clarify and document your clinical opinion in the progress notes and discharge summary. Terms such as "probable", "suspected", "likely", "questionable", "possible", or "still to be ruled out" are acceptable. IF IN AGREEMENT, YOU MUST DOCUMENT ABOVE DIAGNOSTIC STATEMENT IN DAILY PROGRESS NOTES AND DISCHARGE SUMMARY. This document is not part of the patient's record. Thank You, Stuart Lloyd, RN [phone]
--- NOTE | 2017-02-01 10:39 | Clinical Documentation Query ---
RAOUL Corea : CLINICAL DOCUMENTATION QUERIES QUERY 1 OF 2 Patient is a 51 year old immunocompromised female admitted for CAP. Antibiotic coverage initially included only Levaquin but Cefepime was added with note of "no fevers since broadening coverage". Sputum gram stain positive for moderate amount of gram positive cocci. As appropriate, consider documentation as below as this directly impacts DRG assignment. In your clinical opinion is this patient being managed for: ( ) (Possible/Suspected/Likely) Staphylococcal pneumonia ( ) Other explanation of clinical findings (Please Explain) ( ) Unable to determine (Please Define) ( ) Need to Discuss ( x ) Not Agree The medical record reflects the following clinical findings, treatment, and risk factors. Clinical Indicators: As above Treatment: Cefepime Risk Factors: Immunosuppression QUERY 2 OF 2 Patient is a 51 year old immunocompromised female admitted for CAP. Antibiotic coverage initially included only Levaquin but Cefepime was added with note of "no fevers since broadening coverage". Sputum gram stain positive for moderate amount of gram positive cocci. As appropriate, consider documentation as below as this directly impacts DRG assignment. In your clinical opinion is this patient being managed for: ( ) (Possible/Suspected/Likely) Staphylococcal pneumonia ( ) Other explanation of clinical findings (Please Explain) ( ) Unable to determine (Please Define) ( ) Need to Discuss ( x ) Not Agree The medical record reflects the following clinical findings, treatment, and risk factors. Clinical Indicators: As above Treatment: Cefepime Risk Factors: Immunosuppression Please clarify and document your clinical opinion in the progress notes and discharge summary. Terms such as "probable", "suspected", "likely", "questionable", "possible", or "still to be ruled out" are acceptable. IF IN AGREEMENT, YOU MUST DOCUMENT ABOVE DIAGNOSTIC STATEMENT IN DAILY PROGRESS NOTES AND DISCHARGE SUMMARY. This document is not part of the patient's record. Thank You, Stuart Lloyd, RN [phone]
--- NOTE | 2017-02-01 10:46 | Medical Consult ---
Consultation Date of Consultation: Feb 01, 2017. Attending Physician: Kayden Lauren D.O. Reason for Consultation: Starting Zyvox History of Present Illness 51-year-old female with long history of autoimmune disease with components of lupus, Raynaud's, and Sjogren's syndrome, currently maintained on CellCept, with recent diagnosis of nonalcoholic steatohepatitis based on liver biopsy findings, presents with several days of progressively worsening fever, chills, weakness, shortness of breath, cough, and chest pain associated with dry throat , mild diarrhea, and generalized joint aches and pains. She came to the emergency department where she was found to have bilateral diffuse infiltrates with CT scan, read by me, confirming bilateral inflammatory changes. She has been started on broad-spectrum antibiotic therapy with combination of levofloxacin and cefepime. Blood cultures have been negative, sputum cultures are pending. MRSA screen is negative. Patient feeling slightly better from time of admission. Still with shortness of breath and dyspnea on exertion. No significant travel history, but has been in the hospital setting over the recent past. Several coworkers sick with respiratory illness. No other significant epidemiologic factors. 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 (3) DEPRESSIVE DISORDER NEC (4) HYPERLIPIDEMIA NEC/NOS (5) Hyponatremia (6) Immunocompromised patient (7) Lupus (8) Pneumonia (9) Raynaud's disease (10) Shortness of breath (11) Sjogren's disorder (12) SYST LUPUS ERYTHEMATOSIS (13) TOBACCO USE DISORDER Family History Cancer Gallbladder disease Heart disease Hypertension Kidney disease Kidney stones Lung disease Social History Smoking Status: Former Smoker Drug Use: none Marital Status: Housing Status: lives with family Occupation Status: unemployed Allergies Coded Allergies: Penicillins (Verified Allergy, Intermediate, passes out as a child, ) 01/31/17- INTERVIEW WITH PATIENT, HAS TAKEN AUGMENTIN SINCE REACTION Vancomycin (Verified Allergy, Intermediate, red man syndrome, 01/29/17) Current Inpatient Medications Current Inpatient Medications Medications (Trade) Dose Ordered Sig/Miranda Route Start Time Stop Time Status Last Admin Dose Admin Ioversol (Optiray 320) 100 ml UD PRN IV 01/29/17 12:30 02/02/17 12:29 Acetaminophen (Tylenol Tab) 650 mg Q4H PRN PO 01/29/17 17:45 02/28/17 17:44 02/01/17 09:46 650 MG Al Hydrox/Mg Hydrox/Simethicone (Maalox Max Susp) 15 ml Q4H PRN PO 01/29/17 17:45 02/28/17 17:44 01/31/17 21:33 15 ML Magnesium Hydroxide (Milk Of Magnesia Susp) 30 ml Q6H PRN PO 01/29/17 17:45 02/28/17 17:44 Polyethylene (Miralax Powder Packet) 17 gm DAILY PRN PO 01/29/17 17:45 02/28/17 17:44 Ondansetron HCl (Zofran Inj) 4 mg Q6H PRN IV 01/29/17 17:45 02/28/17 17:44 01/31/17 22:16 4 MG Zolpidem Tartrate (Ambien Tab) 5 mg HSZ PRN PO 01/29/17 17:45 02/28/17 17:44 01/31/17 21:34 5 MG Albuterol/ Ipratropium (Duoneb) 3 ml QIDR INH 01/29/17 20:00 02/28/17 19:59 02/01/17 07:00 3 ML Enoxaparin Sodium (Lovenox Inj) 40 mg QAM SQ 01/30/17 09:00 03/01/17 08:59 02/01/17 08:34 40 MG Levofloxacin 750 mg/Prmx 150 ml @ 100 mls/hr Q24H IV 01/30/17 14:00 02/01/17 13:59 01/31/17 12:39 100 MLS/HR Amitriptyline HCl (Elavil Tab) 20 mg HS PO 01/29/17 21:00 02/28/17 20:59 01/31/17 21:34 20 MG Aspirin (Ecotrin Tab) 81 mg DAILY PO 01/29/17 18:30 02/28/17 18:29 02/01/17 08:31 81 MG Cholecalciferol (Vitamin D Tab) 2,000 inter.unit DAILY PO 01/30/17 09:00 03/01/17 08:59 02/01/17 08:34 2,000 INTER.UNIT Gabapentin (Neurontin Cap) 900 mg TID PO 01/29/17 21:00 02/28/17 20:59 02/01/17 08:32 900 MG Lisinopril (Zestril Tab) 40 mg QAM PO 01/30/17 09:00 03/01/17 08:59 01/31/17 09:23 40 MG Metoprolol Tartrate (Lopressor Tab) 25 mg QAM PO 01/30/17 09:00 03/01/17 08:59 Oxycodone HCl (Roxicodone Immediate Rel Tab) 5 mg QID PO 01/29/17 21:00 02/12/17 20:59 02/01/17 08:30 5 MG Prednisone (PredniSONE TAB) 10 mg DAILY PO 01/30/17 09:00 03/01/17 08:59 02/01/17 08:31 10 MG Cefepime HCl (Consult) 1 ea UD PRN N/A 01/31/17 08:00 03/02/17 07:59 Cefepime HCl 2000 mg/Dextrose 112.5 ml @ 225 mls/hr Q8H IV 01/31/17 08:00 02/07/17 07:59 02/01/17 08:29 225 MLS/HR Phenol (Chloraseptic 1.4% [place]) 1 sprays Q2H PRN MT 01/31/17 09:30 03/02/17 09:29 01/31/17 09:37 1 SPRAYS Fluoxetine HCl (Prozac Cap) 80 mg DAILY PO 02/01/17 09:00 03/03/17 08:59 02/01/17 08:32 80 MG Calcium Carbonate (Tums Chew Tab) 1,000 mg Q4H PRN PO 01/31/17 20:45 03/02/17 20:44 Pantoprazole Sodium (Protonix Tab) 40 mg QAM PRN PO 02/01/17 00:15 03/03/17 00:14 Review of Systems Constitutional: + fever, + chills, + weakness Eyes: No problem reported ENT: + sore throat Respiratory: + cough, + shortness of breath, + dyspnea on exertion, No hemoptysis Cardiovascular: + chest pain Abdomen: + nausea, + vomiting, + diarrhea Musculoskeletal: + joint pain Genitourinary - Female: No problem reported Neurologic: No problem reported Psychiatric: No problem reported Endocrine: No problem reported Hematologic / Lymphatic: No problem reported Integumentary: No problem reported Allergic / Immunologic: No problem reported Physical Exam Date Time Temp Pulse Resp B/P (MAP) Pulse Ox O2 Delivery O2 Flow Rate FiO2 02/01/17 10:05 37.1 73 90/58 (69) 95 Oxymask 7.5 02/01/17 08:12 37.5 72 18 94/58 (70) 99 Mask 10.0 02/01/17 08:00 94 Mask 7.5 02/01/17 07:00 70 16 92 Mask 10.0 02/01/17 04:05 Mask 10.0 02/01/17 03:35 37.1 77 21 87/41 (56) 91 Oxymask 10.0 02/01/17 00:02 Nasal Cannula 10.0 Mask 01/31/17 23:29 92 Mask 10.0 01/31/17 23:06 39.1 100 20 115/65 (82) Nasal Cannula 4.0 Humidified Oxygen 01/31/17 20:00 Nasal Cannula 2.0 01/31/17 19:10 69 16 92 Nasal Cannula 1.0 01/31/17 19:04 36.4 69 16 94/61 (72) 92 Nasal Cannula 1.0 Humidified Oxygen 01/31/17 16:00 Nasal Cannula 2.0 01/31/17 15:33 37.0 73 18 84/52 (63) 90 Nasal Cannula 1.0 01/31/17 14:26 66 16 96 Nasal Cannula 2.0 01/31/17 14:00 73 92/64 (73) 01/31/17 12:24 36.7 77 18 86/50 (62) 91 Nasal Cannula 01/31/17 12:00 Nasal Cannula 2.0 01/31/17 11:04 67 16 90 Nasal Cannula 2.0 General Appearance: WD/WN, + mild distress Head: normocephalic, atraumatic Eyes: normal inspection, EOMI, sclerae normal ENT: normal ENT inspection, hearing grossly normal, pharynx normal Neck: supple, no adenopathy, thyroid normal Respiratory/Chest: chest non-tender, no accessory muscle use, + rhonchi Cardiovascular: regular rate, rhythm, no gallop, no murmur Abdomen/GI: normal bowel sounds, non tender, soft, no organomegaly Back: normal inspection, no CVA tenderness Extremities/Musculoskelatal: no calf tenderness, non-tender Neurologic/Psych: alert, normal mood/affect, oriented x 3 Skin: normal color, warm/dry, no rash Lymphatic: no adenopathy Laboratory Results RUN DATE: 01/31/17 [facility] LAB PAGE 1 RUN TIME: 648 Specimen Inquiry PATIENT: ANTHONY KATE LOC: [id number] U # : [id number] AGE/SX: 51/F ROOM: [facility] REG : 01/29/[address]: Jairo Oliveira, : 1965 BED: 1 DIS : STATUS: ADM IN TLOC: SPEC #: [id number] JULIETH: 01/29/17 STATUS: RES REQ #: [id number] RECD: 01/29/17-[address]: Windy Coates PA-C SOURCE: BLOOD ENTR: 01/29/17-[address] [facility] [address]: Kayden Poon DO [facility]: Jairo Escobar M.D. ORDERED: BLOOD CULTURE Procedure Result Verified Site BLD CULT Preliminary 01/31/17-648 NO GROWTH TO DATE. Last 24 Hours Test 01/31/17 17:52 02/01/17 05:54 White Blood Count 9.86 K/uL 11.90 K/uL Red Blood Count 3.74 M/uL 3.69 M/uL Hemoglobin 10.4 g/dL 10.6 g/dL Hematocrit 31.7 % 31.5 % Mean Corpuscular Volume 84.8 fL 85.4 fL Mean Corpuscular Hemoglobin 27.8 pg 28.7 pg Mean Corpuscular Hemoglobin Concent 32.8 g/dl 33.7 g/dl Platelet Count 243 K/uL 242 K/uL Mean Platelet Volume 9.4 fL 9.4 fL Neutrophils (%) (Auto) 91.6 % Lymphocytes (%) (Auto) 3.4 % Monocytes (%) (Auto) 4.6 % Eosinophils (%) (Auto) 0.1 % Basophils (%) (Auto) 0.1 % Neutrophils # (Auto) 9.03 K/uL Lymphocytes # (Auto) 0.34 K/uL Monocytes # (Auto) 0.45 K/uL Eosinophils # (Auto) 0.01 K/uL Basophils # (Auto) 0.01 K/uL RDW Standard Deviation 38.7 fL 39.3 fL RDW Coefficient of Variation 12.5 % 12.6 % Immature Granulocyte % (Auto) 0.2 % Immature Granulocyte # (Auto) 0.02 K/uL Sodium Level 128 mmol/L 128 mmol/L Potassium Level 4.1 mmol/L 4.2 mmol/L Chloride Level 95 mmol/L 98 mmol/L Carbon Dioxide Level 24 mmol/L 23 mmol/L Anion Gap 9.0 mmol/L 7.0 mmol/L Blood Urea Nitrogen 6 mg/dl 7 mg/dl Creatinine 0.87 mg/dl 0.77 mg/dl Est Creatinine Clear Calc Drug Dose 80.0 ml/min 90.4 ml/min Estimated GFR () 89.4 103.6 Estimated GFR (Non- 77.1 89.4 BUN/Creatinine Ratio 7.1 9.4 Random Glucose 126 mg/dl 84 mg/dl Calcium Level 8.6 mg/dl 8.6 mg/dl Patient Name: ANTHONY KATE Unit Number: [id number] Dictated: 01/29/171316 Transcribed: 01/29/171316 JR Printed Date/Time: [~ rep prt dt]/[~ rep prt tm] [~ rep ct labl] - [~ rep ct ivnm] [facility] [place] [place] [address] Dictated: 01/29/171316 Transcribed: 01/29/171316 JRB Printed Date/Time: [~ rep prt dt]/[~ rep prt tm] [~ rep ct labl] - [~ rep ct ivnm] (CHEST FOR PE) ANGIO WITH CT DOSE: 656.35 mGy.cm HISTORY: 51 years-old Female presents with fever and elevated d-dimer. Left lower quadrant abdominal pain. TECHNIQUE: Multiple CTA images of the chest were obtained after the intravenous administration of 92 ml Optiray 320. Coronal and sagittal MIPS were obtained from the axial data set and were submitted for review. A dose lowering technique was utilized adhering to the principles of ALARA. COMPARISON: CT abdomen and pelvis of same day. FINDINGS: CTA: There is adequate opacification of the pulmonary arteries to the level of the subsegmental branches without convincing evidence of acute pulmonary embolism. The thoracic aorta is normal in course and caliber. Heart size is normal. There is minimal reflux of contrast into the IVC, likely secondary to injection technique. CT CHEST: Thyroid is homogeneous. Mild right hilar adenopathy measuring up to 1.9 x 1.4 cm is noted. Mild left hilar and prevascular lymph nodes are also seen measuring up to 1.7 x 0.8 cm. There is no pneumothorax or pleural effusion. Moderate paraseptal and centrilobular emphysematous changes are noted. Multifocal multilobar distribution of groundglass opacities are noted diffusely throughout the lungs bilaterally. There is moderate bronchial wall thickening in a multilobar distribution. Additionally, there are areas of mosaic attenuation and interlobular septal thickening. The imaged upper abdominal structures are within normal limits. Soft tissues are unremarkable. Bones are intact with mild multilevel endplate spurring throughout the spine. IMPRESSION: 1. No evidence of acute aortic pathology or pulmonary thromboembolic disease. 2. Multifocal multilobar distribution of diffuse groundglass opacities are noted with associated bronchial wall thickening, mosaic attenuation and interlobular septal thickening. These findings are nonspecific with differential considerations including atypical pneumonia with bronchitis or pulmonary edema among other etiologies. Follow-up imaging to document resolution is recommended. 3. Background moderate centrilobular and paraseptal emphysema. The above report was generated using voice recognition software. It may contain grammatical, syntax or spelling errors. Electronically signed by: Laron Garcia M.D. 01/29/2017 1:26 PM Dictated Date/Time: 01/29/2017 1:17 PM The status of this report is Signed. Draft = Not yet reviewed or approved by Radiologist. Signed = Reviewed and approved by Radiologist. <AttendingPhy></AttendingPhy> <FamilyPhy>Jairo Escobar M.D.</FamilyPhy > <PrimaryPhy>Jairo Ecsobar M.D.</PrimaryPhy> <UnitNumber>[id number]</ UnitNumber> <VisitNumber>[id number]</VisitNumber> <PatientName>ANTHONY KATE</PatientName> <DateOfBirth>1965</DateOfBirth> <Location>[facility]< /Location> <ServiceDate>01/29/17</ServiceDate> <MNE>ESINDI</MNE> <OrderingPhy> Windy Coates PA-C</OrderingPhy> <OrderingPhyMNE>f rep ord dr bonner</ OrderingPhyMNE> <DictatingPhyMNE>f rep dict dr bonner</DictatingPhyMNE> <CCListMNE> f rep ct ha</CCListMNE> <AdmittingPhyMNE>f pt admit dr bonner</AdmittingPhyMNE> < AttendingPhyMNE>f pt attend dr bonner</AttendingPhyMNE> <ConsultingPhyMNE>f pt consult dr bonner</ConsultingPhyMNE> <FamilyPhyMNE>f pt fam dr bonner</FamilyPhyMNE> <OtherPhyMNE>f pt other dr bonner</OtherPhyMNE> < PrimaryPhyMNE>f pt prim care dr bonner</PrimaryPhyMNE> <ReferringPhyMNE>f pt referring dr bonner</ReferringPhyMNE> Assessment & Plan 51-year-old female with significant autoimmune disease on immunosuppressive therapy now presents with diffuse pneumonitis. X-ray findings more consistent with atypical process including Legionella, mycoplasma, Chlamydia, or viral infection. Other typical community-acquired pathogens possible but less likely. Also wonder about the possibility of involvement of the lungs from her underlying autoimmune process. Would recommend continuing current antibiotics, would hold addition of Zyvox both given negative MRSA screen as well as ongoing use of SSRI. Have ordered additional studies for atypical pathogens. Awaiting sputum culture. I will adjust antibiotics further once more information available. Will follow.
[2017-02-01] MEDS: IPRATROPIUM BROMIDE/ALBUTEROL respimat INH INH SCH ×3 (14:23→21:26)
[2017-02-01] MEDS: LEVOFLOXACIN / D5W 750 MG in PREMIXED IN D5W 150 ML IV SCH (15:52)
[2017-02-01] MEDS: ONDANSETRON INJ 2 MG/ML 2 ML VIAL IV PRN ×2 (15:58→23:38)
--- NOTE | 2017-02-01 16:16 | Family Medicine Progress Note ---
Progress Note Date of Service Feb 01, 2017. Subjective Pt evaluation today including: conversation w/ patient, physical exam, chart review, lab review, review of studies Pain: patient denies any pain this morning Voiding: no voiding problems, no incontinence Patient states that last night she got all worked up because the nurse did not bring her Tylenol and time. She has Been complaining of fevers and says that she can tell when they're coming, and needs her Tylenol 2 hours before. She also complains of worsening shortness of breath on exertion since admission. Otherwise of the patient feels that she is doing fine. This morning the patient denies any fever, chills, headache, changes in vision, nausea, vomiting , or any other acute complaints. Constitutional: No fever, No chills Respiratory: + cough, + shortness of breath, + dyspnea on exertion, No wheezing, No dyspnea at rest Cardiovascular: No chest pain, No palpitations Abdomen: No pain, No nausea, No vomiting Female : No dysuria Medications Current Inpatient Medications Medications (Trade) Dose Ordered Sig/Miranda Route Start Time Stop Time Status Last Admin Dose Admin Ioversol (Optiray 320) 100 ml UD PRN IV 01/29/17 12:30 02/02/17 12:29 Acetaminophen (Tylenol Tab) 650 mg Q4H PRN PO 01/29/17 17:45 02/28/17 17:44 02/01/17 15:58 650 MG Al Hydrox/Mg Hydrox/Simethicone (Maalox Max Susp) 15 ml Q4H PRN PO 01/29/17 17:45 02/28/17 17:44 01/31/17 21:33 15 ML Magnesium Hydroxide (Milk Of Magnesia Susp) 30 ml Q6H PRN PO 01/29/17 17:45 02/28/17 17:44 Polyethylene (Miralax Powder Packet) 17 gm DAILY PRN PO 01/29/17 17:45 02/28/17 17:44 Ondansetron HCl (Zofran Inj) 4 mg Q6H PRN IV 01/29/17 17:45 02/28/17 17:44 02/01/17 15:58 4 MG Zolpidem Tartrate (Ambien Tab) 5 mg HSZ PRN PO 01/29/17 17:45 02/28/17 17:44 01/31/17 21:34 5 MG Enoxaparin Sodium (Lovenox Inj) 40 mg QAM SQ 01/30/17 09:00 03/01/17 08:59 02/01/17 08:34 40 MG Amitriptyline HCl (Elavil Tab) 20 mg HS PO 01/29/17 21:00 02/28/17 20:59 01/31/17 21:34 20 MG Aspirin (Ecotrin Tab) 81 mg DAILY PO 01/29/17 18:30 02/28/17 18:29 02/01/17 08:31 81 MG Cholecalciferol (Vitamin D Tab) 2,000 inter.unit DAILY PO 01/30/17 09:00 03/01/17 08:59 02/01/17 08:34 2,000 INTER.UNIT Gabapentin (Neurontin Cap) 900 mg TID PO 01/29/17 21:00 02/28/17 20:59 02/01/17 14:23 900 MG Lisinopril (Zestril Tab) 40 mg QAM PO 01/30/17 09:00 03/01/17 08:59 01/31/17 09:23 40 MG Metoprolol Tartrate (Lopressor Tab) 25 mg QAM PO 01/30/17 09:00 03/01/17 08:59 Oxycodone HCl (Roxicodone Immediate Rel Tab) 5 mg QID PO 01/29/17 21:00 02/12/17 20:59 02/01/17 14:23 5 MG Prednisone (PredniSONE TAB) 10 mg DAILY PO 01/30/17 09:00 03/01/17 08:59 02/01/17 08:31 10 MG Cefepime HCl (Consult) 1 ea UD PRN N/A 01/31/17 08:00 03/02/17 07:59 Cefepime HCl 2000 mg/Dextrose 112.5 ml @ 225 mls/hr Q8H IV 01/31/17 08:00 02/07/17 07:59 02/01/17 08:29 225 MLS/HR Phenol (Chloraseptic 1.4% [place]) 1 sprays Q2H PRN MT 01/31/17 09:30 03/02/17 09:29 01/31/17 09:37 1 SPRAYS Fluoxetine HCl (Prozac Cap) 80 mg DAILY PO 02/01/17 09:00 03/03/17 08:59 02/01/17 08:32 80 MG Calcium Carbonate (Tums Chew Tab) 1,000 mg Q4H PRN PO 01/31/17 20:45 03/02/17 20:44 Pantoprazole Sodium (Protonix Tab) 40 mg QAM PRN PO 02/01/17 00:15 03/03/17 00:14 Albuterol/ Ipratropium (Combivent Respimat Inh) 1 puffs QID INH 02/01/17 13:00 03/03/17 12:59 02/01/17 14:23 1 PUFFS Levofloxacin 750 mg/Prmx 150 ml @ 100 mls/hr Q24H IV 02/01/17 16:00 02/06/17 15:59 02/01/17 15:52 100 MLS/HR Objective Vital Signs Date Time Temp Pulse Resp B/P (MAP) Pulse Ox O2 Delivery O2 Flow Rate FiO2 02/01/17 15:33 36.6 65 20 87/54 (65) 95 Oxymask 10.0 94/61 (72) 02/01/17 12:08 36.8 66 16 93/59 (70) 95 Mask 02/01/17 12:00 94 Oxymask 7.5 02/01/17 11:13 62 16 95 Mask 10.0 02/01/17 10:05 37.1 73 90/58 (69) 95 Oxymask 7.5 02/01/17 08:12 37.5 72 18 94/58 (70) 99 Mask 10.0 02/01/17 08:00 94 Mask 7.5 02/01/17 07:00 70 16 92 Mask 10.0 02/01/17 04:05 Mask 10.0 02/01/17 03:35 37.1 77 21 87/41 (56) 91 Oxymask 10.0 02/01/17 00:02 Nasal Cannula 10.0 Mask 01/31/17 23:29 92 Mask 10.0 01/31/17 23:06 39.1 100 20 115/65 (82) Nasal Cannula 4.0 Humidified Oxygen 01/31/17 20:00 Nasal Cannula 2.0 01/31/17 19:10 69 16 92 Nasal Cannula 1.0 01/31/17 19:04 36.4 69 16 94/61 (72) 92 Nasal Cannula 1.0 Humidified Oxygen Physical Exam General Appearance: WD/WN, no apparent distress Eyes: normal inspection, sclerae normal Neck: supple, no carotid bruits Respiratory/Chest: chest non-tender, + decreased breath sounds, + crackles Cardiovascular: regular rate, rhythm, no edema, no gallop Abdomen: normal bowel sounds, non tender, soft Extremities: non-tender, no calf tenderness Neurologic/Psychiatric: alert, normal mood/affect, oriented x 3 Laboratory Results Results Past 24 Hours Test 01/31/17 17:52 02/01/17 05:54 02/01/17 11:13 02/01/17 15:02 Range/Units White Blood Count 9.86 11.90 4.8-10.8 K/uL Red Blood Count 3.74 3.69 4.2-5.4 M/uL Hemoglobin 10.4 10.6 12.0-16.0 g/dL Hematocrit 31.7 31.5 37-47 % Mean Corpuscular Volume 84.8 85.4 80-100 fL Mean Corpuscular Hemoglobin 27.8 28.7 25-34 pg Mean Corpuscular Hemoglobin Concent 32.8 33.7 32-36 g/dl Platelet Count 243 242 130-400 K/uL Mean Platelet Volume 9.4 9.4 7.4-10.4 fL Neutrophils (%) (Auto) 91.6 % Lymphocytes (%) (Auto) 3.4 % Monocytes (%) (Auto) 4.6 % Eosinophils (%) (Auto) 0.1 % Basophils (%) (Auto) 0.1 % Neutrophils # (Auto) 9.03 1.4-6.5 K/uL Lymphocytes # (Auto) 0.34 1.2-3.4 K/uL Monocytes # (Auto) 0.45 0.11-0.59 K/uL Eosinophils # (Auto) 0.01 0-0.5 K/uL Basophils # (Auto) 0.01 0-0.2 K/uL RDW Standard Deviation 38.7 39.3 36.4-46.3 fL RDW Coefficient of Variation 12.5 12.6 11.5-14.5 % Immature Granulocyte % (Auto) 0.2 % Immature Granulocyte # (Auto) 0.02 0.00-0.02 K/uL Sodium Level 128 128 136-145 mmol/L Potassium Level 4.1 4.2 3.5-5.1 mmol/L Chloride Level 95 98 98-107 mmol/L Carbon Dioxide Level 24 23 21-32 mmol/L Anion Gap 9.0 7.0 3-11 mmol/L Blood Urea Nitrogen 6 7 7-18 mg/dl Creatinine 0.87 0.77 0.60-1.20 mg/dl Est Creatinine Clear Calc Drug Dose 80.0 90.4 ml/min Estimated GFR () 89.4 103.6 Estimated GFR (Non- 77.1 89.4 BUN/Creatinine Ratio 7.1 9.4 10-20 Random Glucose 126 84 70-99 mg/dl Calcium Level 8.6 8.6 8.5-10.1 mg/dl Assessment and Plan Patient is a 51-year-old female with a past medical history of celiac disease, IBS, Sjogren's, lupus, and Raynaud's disease, that presented with shortness of breath and found on chest x-ray to have groundglass opacities. Patient is currently on day for IV antibiotic therapy with Levaquin and day 2 IV therapy with cefepime. The patient has had continual fevers since admission, and has had continuous worsening of her shortness of breath. 1) Community Acquired Pneumonia - Levaquin IV Day 4 - Cefepime IV Day 2 - Immunocompromised, On CellCept for multiple autoimmune diseases - Still required 2L of Oxygen - DuoNeb's every 4 hours scheduled, and every 2 hours as needed for shortness of breath - Flutter valve - Center spirometry 2) 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 lupus - Off of CellCept for 1 week - Continue home prednisone 10 mg 3) Hypotension - Yesterday received 500cc Bolus of NS, and additions 1L of IV 1/2 NS - Held Lisinopril and Metoprolol this morning 4) History of SVT - Metoprolol 5) Home Medications - Prozac - Amitryptiline - Gabapentin - Oxycodone - Aspirin - Ambien 6) DVT prophylaxis - Lovenox 40 mg 7) CODE STATUS - Full resuscitation Resident Physician Supervision Note: I interviewed and examined the patient. Discussed with Dr. Goodwin and agree with findings and plan as documented in the note. Any exceptions or clarifications are listed here: None Documented By: Kayden Lauren feeling better than before still easily sob. coughing up sputum. all other ROS otherwise negative except for as above vitals noted nad breathing unlabored until she has her O2 mask up for a while then gets mild accessory muscles - improves almost immediately as she puts mask back down. base R rales. CAP w sepsis/hypoxia - improving slowly. immune suppression (both from autoimmune illness as well as immunosuppressive meds) appears to have played a significant role. double coverage for gram negative for now, jackie can streamline with further improvement. MRSA nares negative so no overt need to cover resistent gram positives unless shows any worsening. Resident Tracking Resident Involvement: Resident Care Provided Care Provided: Adult Hospital Medicine
[2017-02-01] MEDS: ALUMINUM/MAGNESIUM/SIMETH (MAALOX MAX) 30 ML UDC PO PRN (17:06)
[2017-02-01] MEDS ORDERED: SODIUM CHLORIDE 0.9% 1000ML 1,000 ML IV SCH (17:15)
[2017-02-01] MEDS ORDERED: SODIUM CHLORIDE 0.9% 500ML 500 ML IV STA (19:00)
[2017-02-01] MEDS: AMITRIPTYLINE HCL 10 MG TAB PO SCH (21:25)
[2017-02-02] VITALS (12 sets, daily range): BP systolic 90–114; BP diastolic 55–74; PULSE 60–89; TEMP 36.4–37.6; O2SAT 92–98
[2017-02-02] MEDS: ONDANSETRON INJ 2 MG/ML 2 ML VIAL IV PRN (05:50)
[2017-02-02] MEDS: ACETAMINOPHEN 325 MG TAB PO PRN (05:54)
[2017-02-02] MEDS: CEFEPIME IV 2000 MG in DEXTROSE 5% 100ML IV SCH ×2 (07:47→15:55)
[2017-02-02] MEDS: IPRATROPIUM BROMIDE/ALBUTEROL respimat INH INH SCH ×3 (07:48→16:43)
[2017-02-02] MEDS: FLUOXETINE HCL 20 MG CAP PO SCH (07:48)
[2017-02-02] MEDS: CHOLECALCIFEROL 1000 INTER.UNIT TAB PO SCH (07:48)
[2017-02-02] MEDS: ASPIRIN 81 MG ECTAB PO SCH (07:48)
[2017-02-02] MEDS: GABAPENTIN 300 MG CAP PO SCH ×3 (07:49→21:20)
[2017-02-02] MEDS: ENOXAPARIN 40 MG/0.4 ML SYR SQ SCH (07:50)
--- NOTE | 2017-02-02 08:17 | Family Medicine Progress Note ---
Progress Note Date of Service Feb 02, 2017. Subjective Pt evaluation today including: conversation w/ patient, physical exam, chart review, lab review, review of studies Pain: Patient denies any pain this morning Voiding: no voiding problems, no incontinence Patient is resting in her bedside chair this morning, and states that she is feeling uncomfortable. The patient has been on a high flow oxygen mask, and because of this and in addition to her Sjogren's it has been causing her mouth and throat dry making her very uncomfortable. It is also made her gag when she is trying to expectorate her mucus, making her even more uncomfortable. The patient does state though that she feels her respiratory status is improving. The patient also states that she was once again febrile overnight. Medications Current Inpatient Medications Medications (Trade) Dose Ordered Sig/Miranda Route Start Time Stop Time Status Last Admin Dose Admin Ioversol (Optiray 320) 100 ml UD PRN IV 01/29/17 12:30 02/02/17 12:29 Acetaminophen (Tylenol Tab) 650 mg Q4H PRN PO 01/29/17 17:45 02/28/17 17:44 02/01/17 23:39 650 MG Al Hydrox/Mg Hydrox/Simethicone (Maalox Max Susp) 15 ml Q4H PRN PO 01/29/17 17:45 02/28/17 17:44 02/01/17 17:06 15 ML Magnesium Hydroxide (Milk Of Magnesia Susp) 30 ml Q6H PRN PO 01/29/17 17:45 02/28/17 17:44 Polyethylene (Miralax Powder Packet) 17 gm DAILY PRN PO 01/29/17 17:45 02/28/17 17:44 Ondansetron HCl (Zofran Inj) 4 mg Q6H PRN IV 01/29/17 17:45 02/28/17 17:44 02/02/17 05:50 4 MG Zolpidem Tartrate (Ambien Tab) 5 mg HSZ PRN PO 01/29/17 17:45 02/28/17 17:44 01/31/17 21:34 5 MG Enoxaparin Sodium (Lovenox Inj) 40 mg QAM SQ 01/30/17 09:00 03/01/17 08:59 02/02/17 07:50 40 MG Amitriptyline HCl (Elavil Tab) 20 mg HS PO 01/29/17 21:00 02/28/17 20:59 02/01/17 21:25 20 MG Aspirin (Ecotrin Tab) 81 mg DAILY PO 01/29/17 18:30 02/28/17 18:29 02/02/17 07:48 81 MG Cholecalciferol (Vitamin D Tab) 2,000 inter.unit DAILY PO 01/30/17 09:00 03/01/17 08:59 02/02/17 07:48 2,000 INTER.UNIT Gabapentin (Neurontin Cap) 900 mg TID PO 01/29/17 21:00 02/28/17 20:59 02/02/17 07:49 900 MG Lisinopril (Zestril Tab) 40 mg QAM PO 01/30/17 09:00 03/01/17 08:59 Future Hold 01/31/17 09:23 40 MG Metoprolol Tartrate (Lopressor Tab) 25 mg QAM PO 01/30/17 09:00 03/01/17 08:59 Future Hold Oxycodone HCl (Roxicodone Immediate Rel Tab) 5 mg QID PO 01/29/17 21:00 02/12/17 20:59 02/01/17 21:25 5 MG Prednisone (PredniSONE TAB) 10 mg DAILY PO 01/30/17 09:00 03/01/17 08:59 02/02/17 07:49 10 MG Cefepime HCl (Consult) 1 ea UD PRN N/A 01/31/17 08:00 03/02/17 07:59 Cefepime HCl 2000 mg/Dextrose 112.5 ml @ 225 mls/hr Q8H IV 01/31/17 08:00 02/07/17 07:59 02/02/17 07:47 225 MLS/HR Phenol (Chloraseptic 1.4% [place]) 1 sprays Q2H PRN MT 01/31/17 09:30 03/02/17 09:29 01/31/17 09:37 1 SPRAYS Fluoxetine HCl (Prozac Cap) 80 mg DAILY PO 02/01/17 09:00 03/03/17 08:59 02/02/17 07:48 80 MG Calcium Carbonate (Tums Chew Tab) 1,000 mg Q4H PRN PO 01/31/17 20:45 03/02/17 20:44 Pantoprazole Sodium (Protonix Tab) 40 mg QAM PRN PO 02/01/17 00:15 03/03/17 00:14 Albuterol/ Ipratropium (Combivent Respimat Inh) 1 puffs QID INH 02/01/17 13:00 03/03/17 12:59 02/02/17 07:48 1 PUFFS Levofloxacin 750 mg/Prmx 150 ml @ 100 mls/hr Q24H IV 02/01/17 16:00 02/06/17 15:59 02/01/17 15:52 100 MLS/HR Objective Vital Signs Date Time Temp Pulse Resp B/P (MAP) Pulse Ox O2 Delivery O2 Flow Rate FiO2 02/02/17 07:58 37.1 89 18 113/73 (86) 97 14.0 02/02/17 04:00 95 Oxymask 13.0 02/02/17 03:42 36.9 78 22 90/55 (67) 95 Oxymask 13.0 02/02/17 01:21 37.4 93 Oxymask 13.0 02/02/17 00:00 Oxymask 13.0 02/01/17 23:57 90 Oxymask 13.0 02/01/17 23:47 88 Oxymask 10.0 02/01/17 23:30 38.6 92 28 134/76 (95) 81 Oxymask 7.0 02/01/17 20:00 Oxymask 7.5 02/01/17 19:37 36.2 67 20 102/69 (80) 95 Nasal Cannula 7.0 02/01/17 16:00 Oxymask 7.5 02/01/17 15:33 36.6 65 20 87/54 (65) 95 Oxymask 7.0 94/61 (72) 02/01/17 12:08 36.8 66 16 93/59 (70) 95 Mask 02/01/17 12:00 94 Oxymask 7.5 02/01/17 11:13 62 16 95 Mask 10.0 02/01/17 10:05 37.1 73 90/58 (69) 95 Oxymask 7.5 Physical Exam General Appearance: WD/WN, + mild distress Eyes: normal inspection, sclerae normal Respiratory/Chest: chest non-tender, no respiratory distress, + rhonchi Cardiovascular: regular rate, rhythm, no edema, no gallop Abdomen: normal bowel sounds, non tender, soft Extremities: no calf tenderness Neurologic/Psychiatric: alert, normal mood/affect, oriented x 3 Laboratory Results Results Past 24 Hours Test 02/01/17 11:13 02/01/17 14:45 02/02/17 08:09 Range/Units Assessment and Plan The patient is a 51-year-old immunocompromise female with a history of Sjogren' s disease, celiac disease, lupus that presented to the ED with worsening shortness of breath and on imaging was found to have a bilateral pneumonia.It is difficult to tell whether the patient is clinically improving due to her ongoing autoimmune disease. She has been complaining of a sore throat and dry mouth that may be secondary to her Sjogren's and are making her have gagging with her sputum. We'll consult an infectious disease who recommended remaining on the current antibiotics, but we have also consulted rheumatology and pulmonology to get further input as well. The patient was also started on 50 mg of hydrocortisone every 8 hours so hopefully that will help improve her course. The patient did receive approximately 1.5 L of normal saline yesterday , and had improved pressures today. We also changed her high flow oxygen mask to high flow nasal cannula so hopefully this will reduce her dry mouth. We also tried scheduling her Zofran as well as duo nebs in order to help with her symptoms. 1) Community Acquired Pneumonia - Levaquin IV Day 5 - Cefepime IV Day 3 - Stress steroid dosing- 50 mg hydrocortisone every 8 hours - Duo nebs every 4 hours - High flow nasal cannula - Immunocompromised, On CellCept for multiple autoimmune diseases - Flutter valve - Center spirometry - Pulmonology consult 2) 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 lupus - Off of CellCept for 1 week - Continue home prednisone 10 mg - 50 mg hydrocortisone every 8 hours - Rheumatology consult 3) Hypotension - Appeared to have resolved with normal saline bolus - Patient received 1.5 L of normal saline - Holding Lisinopril and Metoprolol this morning 4) History of SVT - Metoprolol 5) Home Medications - Prozac - Amitryptiline - Gabapentin - Oxycodone - Aspirin - Ambien 6) DVT prophylaxis - Lovenox 40 mg 7) CODE STATUS - Full resuscitation Resident Physician Supervision Note: I interviewed and examined the patient. Discussed with Dr. Goodwin and agree with findings and plan as documented in the note. Any exceptions or clarifications are listed here: None Documented By: Kayden Lauren d/w pt's brother in law Dr [place] with pt permission and HIPPA password. pt notes that she's feeling lousy - although when specifying why, it's not SOB as much as gagging on mucous and gagging from dry throat. ID requests rheum and pulm consults. all other ROS otherwise negative except for as above vitals noted fatigued but lungs overall quiet, clear faint R rales but better. no accessory muscles. CAP (atypical vs gram negative) w refractory hypoxia -suspect severity due to autoimmune conditions + immune suppressant meds - ID requests rheum eval, cellcept on hold, stress dosign steroids as of today -suspect refractory hypoxia is due to above leading to more severe pneumonia at presentation and her suspicion that she harbors occult COPD -stress dose steroids likely to help COPD component -increase pulmonary toilet to duonebs q4wa and q2 prn -ID requests pulmonary consult -ongoing supportive care -today's complaints more in line with dry from O2, with mucous causing gagging - suspect she's slowly starting to improve but feels truly lousy due to severity of illness superimposed on baseline diseases Resident Tracking Resident Involvement: Resident Care Provided Care Provided: Adult Hospital Medicine Resident Tracking Resident Involvement: Resident Care Provided Care Provided: Adult Hospital Medicine
[2017-02-02 08:38] LABS: HEMATOCRIT 31.4 % (37-47); MEAN CELL VOLUME 85.8 fL (80-100); MEAN CORPUSCULAR HGB CONC 33.8 g/dl (32-36); MEAN PLATELET VOLUME 9.1 fL (7.4-10.4); PLATELET COUNT 239 K/uL (130-400); RED BLOOD COUNT 3.66 M/uL (4.2-5.4); WHITE BLOOD COUNT 12.31 K/uL (4.8-10.8)
[2017-02-02] MEDS ORDERED: HYDROCORTISONE IV 50 MG in SYRINGE 0 ML IV ONE (09:00)
[2017-02-02 09:02] LABS: BUN/CREATININE RATIO 8.8 (10-20); CALCIUM 8.5 mg/dl (8.5-10.1); CREATININE 0.74 mg/dl (0.60-1.20); POTASSIUM 4.2 mmol/L (3.5-5.1)
[2017-02-02] MEDS: OXYCODONE HCL IR 5 MG TAB (IMMEDIATE RELEASE) PO SCH ×4 (09:20→21:19)
[2017-02-02 10:15] LABS: BASO % 0.1 %; BASO ABS # 0.01 K/uL (0-0.2); COMPLETE YES; EOS % 0.4 %; IG% 0.2 %; LYMPH % 4.3 %; LYMPH ABS # 0.53 K/uL (1.2-3.4)
[2017-02-02] MEDS ORDERED: NURSING VERBAL MED ORDER ONE (12:00)
[2017-02-02] MEDS ORDERED: ONDANSETRON INJ 2 MG/ML 2 ML VIAL IV. SCH (12:15)
[2017-02-02] MEDS: ONDANSETRON INJ 2 MG/ML 2 ML VIAL IV SCH ×2 (12:24→18:11)
[2017-02-02] MEDS: HYDROCORTISONE IV 50 MG in SYRINGE 0 ML IV SCH ×2 (13:24→21:20)
[2017-02-02] MEDS: LEVOFLOXACIN / D5W 750 MG in PREMIXED IN D5W 150 ML IV SCH (16:43)
[2017-02-02] MEDS ORDERED: ALBUTEROL 0.083% NEBU SOLN 3 ML VIAL INH ONE (18:50)
--- NOTE | 2017-02-02 19:05 | Infectious Disease Progress Nt ---
Progress Note Date of Service Feb 02, 2017. Subjective Pt evaluation today including: conversation w/ patient, physical exam, chart review, lab review, review of studies, conversation w/ bridal stylist sales consultant, review of inpatient medication list Rough night with ongoing SOB/VALENZUELA. Isolated temp spike, currently afebrile. Cultures negative to date. All Other Systems: Reviewed and Negative Medications Current Inpatient Medications Medications (Trade) Dose Ordered Sig/Miranda Route Start Time Stop Time Status Last Admin Dose Admin Acetaminophen (Tylenol Tab) 650 mg Q4H PRN PO 01/29/17 17:45 02/28/17 17:44 02/01/17 23:39 650 MG Al Hydrox/Mg Hydrox/Simethicone (Maalox Max Susp) 15 ml Q4H PRN PO 01/29/17 17:45 02/28/17 17:44 02/01/17 17:06 15 ML Magnesium Hydroxide (Milk Of Magnesia Susp) 30 ml Q6H PRN PO 01/29/17 17:45 02/28/17 17:44 Polyethylene (Miralax Powder Packet) 17 gm DAILY PRN PO 01/29/17 17:45 02/28/17 17:44 Ondansetron HCl (Zofran Inj) 4 mg Q6H PRN IV 01/29/17 17:45 02/28/17 17:44 Future hold 02/02/17 05:50 4 MG Zolpidem Tartrate (Ambien Tab) 5 mg HSZ PRN PO 01/29/17 17:45 02/28/17 17:44 01/31/17 21:34 5 MG Enoxaparin Sodium (Lovenox Inj) 40 mg QAM SQ 01/30/17 09:00 03/01/17 08:59 02/02/17 07:50 40 MG Amitriptyline HCl (Elavil Tab) 20 mg HS PO 01/29/17 21:00 02/28/17 20:59 02/01/17 21:25 20 MG Aspirin (Ecotrin Tab) 81 mg DAILY PO 01/29/17 18:30 02/28/17 18:29 02/02/17 07:48 81 MG Cholecalciferol (Vitamin D Tab) 2,000 inter.unit DAILY PO 01/30/17 09:00 03/01/17 08:59 02/02/17 07:48 2,000 INTER.UNIT Gabapentin (Neurontin Cap) 900 mg TID PO 01/29/17 21:00 02/28/17 20:59 02/02/17 13:25 900 MG Lisinopril (Zestril Tab) 40 mg QAM PO 01/30/17 09:00 03/01/17 08:59 Future Hold 01/31/17 09:23 40 MG Metoprolol Tartrate (Lopressor Tab) 25 mg QAM PO 01/30/17 09:00 03/01/17 08:59 Future Hold Oxycodone HCl (Roxicodone Immediate Rel Tab) 5 mg QID PO 01/29/17 21:00 02/12/17 20:59 02/02/17 16:43 5 MG Prednisone (PredniSONE TAB) 10 mg DAILY PO 01/30/17 09:00 03/01/17 08:59 02/02/17 07:49 10 MG Cefepime HCl (Consult) 1 ea UD PRN N/A 01/31/17 08:00 03/02/17 07:59 Cefepime HCl 2000 mg/Dextrose 112.5 ml @ 225 mls/hr Q8H IV 01/31/17 08:00 02/07/17 07:59 02/02/17 15:55 225 MLS/HR Phenol (Chloraseptic 1.4% [place]) 1 sprays Q2H PRN MT 01/31/17 09:30 03/02/17 09:29 01/31/17 09:37 1 SPRAYS Fluoxetine HCl (Prozac Cap) 80 mg DAILY PO 02/01/17 09:00 03/03/17 08:59 02/02/17 07:48 80 MG Calcium Carbonate (Tums Chew Tab) 1,000 mg Q4H PRN PO 01/31/17 20:45 03/02/17 20:44 Pantoprazole Sodium (Protonix Tab) 40 mg QAM PRN PO 02/01/17 00:15 03/03/17 00:14 Levofloxacin 750 mg/Prmx 150 ml @ 100 mls/hr Q24H IV 02/01/17 16:00 02/06/17 15:59 02/02/17 16:43 100 MLS/HR Hydrocortisone Sodium Succinate 50 mg/Syringe 1 ml @ 4 mls/min Q8 IV 02/02/17 14:00 03/04/17 13:59 02/02/17 13:24 4 MLS/MIN Ondansetron HCl (Zofran Inj) 4 mg Q6H IV 02/02/17 12:15 02/03/17 12:14 02/02/17 18:11 4 MG Albuterol Sulfate (Ventolin 0.083% 2.5MG/3ML Neb) 2.5 mg Q4RWA INH 02/02/17 20:00 03/04/17 19:59 Objective Vital Signs Date Time Temp Pulse Resp B/P (MAP) Pulse Ox O2 Delivery O2 Flow Rate FiO2 02/02/17 16:00 High Flow Oxygen 45.0 75 02/02/17 15:40 36.6 67 22 114/74 (87) 98 High Flow Oxygen 50.0 02/02/17 12:32 89 18 96 Nasal Cannula 50.0 100 02/02/17 12:00 Oxymask 15.0 02/02/17 11:00 37.6 77 20 102/65 (77) 92 Mask 13.0 02/02/17 08:00 Oxymask 10.0 02/02/17 07:58 37.1 89 18 113/73 (86) 97 14.0 02/02/17 04:00 95 Oxymask 13.0 02/02/17 03:42 36.9 78 22 90/55 (67) 95 Oxymask 13.0 02/02/17 01:21 37.4 93 Oxymask 13.0 02/02/17 00:00 Oxymask 13.0 02/01/17 23:57 90 Oxymask 13.0 02/01/17 23:47 88 Oxymask 10.0 02/01/17 23:30 38.6 92 28 134/76 (95) 81 Oxymask 7.0 02/01/17 20:00 Oxymask 7.5 02/01/17 19:37 36.2 67 20 102/69 (80) 95 Nasal Cannula 7.0 Physical Exam General Appearance: WD/WN, + mild distress Eyes: normal inspection, sclerae normal ENT: normal ENT inspection, pharynx normal Neck: supple, no adenopathy, trachea midline Respiratory/Chest: chest non-tender, no respiratory distress, + rales Cardiovascular: regular rate, rhythm, no gallop, no murmur Abdomen: normal bowel sounds, non tender, soft, no organomegaly Extremities: non-tender, no calf tenderness Neurologic/Psychiatric: alert, oriented x 3 Skin: normal color, warm/dry, no rash Lymphatic: no adenopathy Laboratory Results Last 24 Hours Test 02/02/17 08:24 White Blood Count 12.31 K/uL Red Blood Count 3.66 M/uL Hemoglobin 10.6 g/dL Hematocrit 31.4 % Mean Corpuscular Volume 85.8 fL Mean Corpuscular Hemoglobin 29.0 pg Mean Corpuscular Hemoglobin Concent 33.8 g/dl Platelet Count 239 K/uL Mean Platelet Volume 9.1 fL Neutrophils (%) (Auto) 90.0 % Lymphocytes (%) (Auto) 4.3 % Monocytes (%) (Auto) 5.0 % Eosinophils (%) (Auto) 0.4 % Basophils (%) (Auto) 0.1 % Neutrophils # (Auto) 11.08 K/uL Lymphocytes # (Auto) 0.53 K/uL Monocytes # (Auto) 0.61 K/uL Eosinophils # (Auto) 0.05 K/uL Basophils # (Auto) 0.01 K/uL RDW Standard Deviation 40.0 fL RDW Coefficient of Variation 12.7 % Immature Granulocyte % (Auto) 0.2 % Immature Granulocyte # (Auto) 0.03 K/uL Sodium Level 131 mmol/L Potassium Level 4.2 mmol/L Chloride Level 100 mmol/L Carbon Dioxide Level 22 mmol/L Anion Gap 9.0 mmol/L Blood Urea Nitrogen 7 mg/dl Creatinine 0.74 mg/dl Est Creatinine Clear Calc Drug Dose 103.1 ml/min Estimated GFR () 108.7 Estimated GFR (Non- 93.8 BUN/Creatinine Ratio 8.8 Random Glucose 86 mg/dl Calcium Level 8.5 mg/dl Assessment and Plan 51-year-old female with significant autoimmune disease on immunosuppressive therapy now presents with diffuse pneumonitis. X-ray findings more consistent with atypical process including Legionella, mycoplasma, Chlamydia, or viral infection. Other typical community-acquired pathogens possible but less likely. Also wonder about the possibility of involvement of the lungs from her underlying autoimmune process. Would recommend continuing current antibiotics, would hold addition of Zyvox both given negative MRSA screen as well as ongoing use of SSRI. Have ordered additional studies for atypical pathogens. Consider rheumatology and Pulmonary consultations.
[2017-02-02] MEDS: ALBUTEROL 0.083% NEBU SOLN 3 ML VIAL INH SCH (19:08)
[2017-02-02] MEDS: ZOLPIDEM TARTRATE 5 MG TAB PO PRN (21:19)
[2017-02-02] MEDS: AMITRIPTYLINE HCL 10 MG TAB PO SCH (21:20)
[2017-02-03] VITALS (11 sets, daily range): BP systolic 103–118; BP diastolic 66–75; PULSE 60–74; TEMP 36.8–37.1; O2SAT 89–97
[2017-02-03] MEDS: ONDANSETRON INJ 2 MG/ML 2 ML VIAL IV SCH ×2 (00:05→06:25)
[2017-02-03] MEDS: CEFEPIME IV 2000 MG in DEXTROSE 5% 100ML IV SCH ×3 (00:05→15:28)
[2017-02-03] MEDS: HYDROCORTISONE IV 50 MG in SYRINGE 0 ML IV SCH ×2 (06:25→14:47)
[2017-02-03] MEDS: ALBUTEROL 0.083% NEBU SOLN 3 ML VIAL INH SCH ×4 (07:10→19:40)
[2017-02-03 08:20] LABS: BASO % 0.1 %; BASO ABS # 0.01 K/uL (0-0.2); COMPLETE YES; HEMATOCRIT 29.8 % (37-47); IG% 0.3 %; LYMPH % 3.5 %; LYMPH ABS # 0.47 K/uL (1.2-3.4); MEAN CELL VOLUME 84.2 fL (80-100); MEAN CORPUSCULAR HEMOGLOBIN 28.8 pg (25-34); MEAN CORPUSCULAR HGB CONC 34.2 g/dl (32-36); MONO % 4.7 %; NEUT % 91.4 %; PLATELET COUNT 281 K/uL (130-400); RED BLOOD COUNT 3.54 M/uL (4.2-5.4); WHITE BLOOD COUNT 13.49 K/uL (4.8-10.8)
[2017-02-03 08:57] LABS: BUN/CREATININE RATIO 14.3 (10-20); CALCIUM 9.3 mg/dl (8.5-10.1); CREATININE 0.74 mg/dl (0.60-1.20); POTASSIUM 4.2 mmol/L (3.5-5.1)
[2017-02-03] MEDS: GABAPENTIN 300 MG CAP PO SCH ×3 (09:06→20:53)
[2017-02-03] MEDS: ASPIRIN 81 MG ECTAB PO SCH (09:07)
[2017-02-03] MEDS: CHOLECALCIFEROL 1000 INTER.UNIT TAB PO SCH (09:07)
[2017-02-03] MEDS: ENOXAPARIN 40 MG/0.4 ML SYR SQ SCH (09:08)
[2017-02-03] MEDS: FLUOXETINE HCL 20 MG CAP PO SCH (09:08)
[2017-02-03] MEDS: OXYCODONE HCL IR 5 MG TAB (IMMEDIATE RELEASE) PO SCH ×4 (09:13→21:06)
--- NOTE | 2017-02-03 11:51 | Pulmonary Consultation ---
History General Date of Service: Feb 03, 2017. Stated Complaint: Pneumonia HPI The patient is a 51 year old female who presents to [facility] with complaints of Pneumonia. The patient's primary care provider is Jairo Escobar M.D. 51-yo female with multiple medical admitted through the [facility] ER 01/29/17 with c/ o dyspnea, loose stool, and fevers. Prior records were reviewed. PMHx includes: SLE, immunocompromised on CellCept and chronic prednisone, ? anticardiolipin AB syndrome, celiac disease, hypertension- recent rx lisinopril, hypothyroid, ADHD, h/o PSVT s/p ablation ( [facility]), and SIADH. H/O tobacco: 60+-pack year, quit 2014. Patient w/u concerning for hypoxia requiring supplemental O2 and atypical pneumonia. She was treated with levofloxacin, scheduled bronchodilators and IS/ pulmonary toilet. Unfortunately, she continued to demonstrate intermittent fevers and progressive hypoxia. Her antibiotic was broadened to Levofloxacin + Cefepime. Patient denies any history of childhood asthma or allergies. She reports she has never been evaluated by a tacking stitch remover in the past. She does have a history of pneumonia diagnosed 05/2015 at which time she was prescribed p.r.n. albuterol inhaler which she states that she would use only intermittently. Prior to this recent admission she denies any symptoms of dyspnea on exertion, cough, wheeze, or pleuritic-type chest pain. She did quit smoking 05/2015 and previously smoked 1-1 and half pack per day for 31 years. She admits to vaping intermittently since quitting cigarette use. Patient does have a strong family history of lung cancer a maternal and paternal grandparents as well as her maternal aunt. Patient was born in [place] and moved to [place] ap 20-years ago. She lives with her tyrel and sone in their home in [place]. THey have 6- cats. Gas heat. NO current mold/mildew. 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 She reports 1x episode of exposure to detailing fumes. Hobbies include gardening. She denies any h/o tick bites. CTA 01/29/17: " There is adequate opacification of the pulmonary arteries to the level of the subsegmental branches without convincing evidence of acute pulmonary embolism. The thoracic aorta is normal in course and caliber. Heart size is normal. There is minimal reflux of contrast into the IVC, likely secondary to injection technique. CT CHEST: Thyroid is homogeneous. Mild right hilar adenopathy measuring up to 1.9 x 1.4 cm is noted. Mild left hilar and prevascular lymph nodes are also seen measuring up to 1.7 x 0.8 cm. There is no pneumothorax or pleural effusion. Moderate paraseptal and centrilobular emphysematous changes are noted. Multifocal multilobar distribution of groundglass opacities are noted diffusely throughout the lungs bilaterally. There is moderate bronchial wall thickening in a multilobar distribution. Additionally, there are areas of mosaic attenuation and interlobular septal thickening. The imaged upper abdominal structures are within normal limits. Soft tissues are unremarkable. Bones are intact with mild multilevel endplate spurring throughout the spine. IMPRESSION: 1. No evidence of acute aortic pathology or pulmonary thromboembolic disease. 2. Multifocal multilobar distribution of diffuse groundglass opacities are noted with associated bronchial wall thickening, mosaic attenuation and interlobular septal thickening. These findings are nonspecific with differential considerations including atypical pneumonia with bronchitis or pulmonary edema among other etiologies. Follow-up imaging to document resolution is recommended. 3. Background moderate centrilobular and paraseptal emphysema." Historian: patient Review of Systems Constitutional: reports: as stated in HPI, fever Eyes: reports: no symptoms ENT: reports: epistaxis, throat swelling, denies: sore throat Cardiovascular: denies: chest pain, edema Respiratory: reports: shortness of breath, denies: wheezing, hemoptysis Gastrointestinal: reports: vomiting Musculoskeletal: reports: no symptoms Neurologic: reports: general weakness, lethargy Psychiatric: denies: alcohol abuse, drug abuse Hematologic / Lymphatic: easy bruising, denies: easy bleeding Allergic / Immunologic: denies: frequent infections Past Medical History Past Medical History: - Systemic lupus erythematosis - Nonalcoholic steatohepatitis - Monoclonal gammopathy - Anticardiolipin antibiody syndrome - Celiac disease - Chronic low back pain - Hypothyroid - Anxiety - Hypertension - Chronic thrush - PSVT s/p ablation ([facility] 2009) - Carotic stenosis (C) - ? Calf thrombosis - H/O nephrolithiasis - SIADH - Cervical radiculopathy - Chronic interstitial cystitis - Gastroesophageal reflux disease Past Surgical History: - Catheter cardiac ablation - section - lymphadenectomy - Liver biopsy - Nasal septal deviation repair - Neurologic surgery- laminectomy - Spinal arthrodesis - Tonsillectomy with adenoidectomy - Wrist surgery Family History Cancer Gallbladder disease Heart disease Hypertension Kidney disease Kidney stones Lung disease - Myocardial infarction: father - PAC: Sister - COPD: mother - Hypertension - Lung Cancer Social History Hx Tobacco Use In Past Year?: No Smoking Status: Former Smoker Marital status: Housing status: lives with family Occupational Status: unemployed Immunizations History of Influenza Vaccine: Yes History of Tetanus Vaccine?: Yes History of Pneumococcal: Yes History of Hepatitis B Vaccine: No History of MDRO History of MDRO: No Allergies Coded Allergies: Penicillins (Verified Allergy, Intermediate, passes out as a child, ) 01/31/17- INTERVIEW WITH PATIENT, HAS TAKEN AUGMENTIN SINCE REACTION Vancomycin (Verified Allergy, Intermediate, red man syndrome, 01/29/17) Current Medications Reported Home Medications Medications Dose Route/Sig Max Daily Dose Days Date Category Metoprolol Succinate ER (Metoprolol Succinate) 25 Mg Tabcr 1 Tab PO DAILY 01/29/17 Reported Oxycodone Hcl 5 Mg Cap 1 Cap PO QID 01/29/17 Reported Vitamin D3 (Cholecalciferol) 2,000 Unit Cap 2 Cap PO DAILY 01/29/17 Reported Gabapentin 300 Mg Cap 900 Mg PO TID 10/22/16 Reported Lisinopril 40 Mg Tab 40 Mg PO QAM 10/22/16 Reported Elavil (Amitriptyline Hcl) 10 Mg Tab 20 Mg PO HS 05/07/16 Rx Aspirin Ec (Aspirin) 81 Mg Tab 81 Mg PO DAILY 04/24/16 Reported Folic Acid 1 Mg Tab 1 Mg PO DAILY 04/24/16 Reported Zolpidem Tartrate 10 Mg Tab 10 Mg PO HS 04/24/16 Reported Prozac (Fluoxetine Hcl) 40 Mg Cap 80 Mg PO DAILY 04/24/16 Reported Prednisone 5 Mg Tab 2 Tab PO DAILY 04/24/16 Reported Physical Physical Exam Vital Signs: Date Time Temp Pulse Resp B/P (MAP) Pulse Ox O2 Delivery O2 Flow Rate FiO2 02/03/17 11:24 64 20 92 Nasal Cannula 45.0 75 02/03/17 10:58 36.8 62 20 118/75 (89) 97 High Flow Oxygen 02/03/17 08:00 High Flow Oxygen 45.0 65 02/03/17 07:24 37.1 71 20 105/66 (79) 93 High Flow Oxygen 02/03/17 07:10 67 20 94 Nasal Cannula 45.0 75 02/03/17 04:00 High Flow Oxygen 45.0 65 02/03/17 03:21 36.8 60 20 106/67 (80) 89 High Flow Oxygen 02/03/17 00:00 High Flow Oxygen 45.0 65 02/02/17 23:00 37.0 61 20 95/57 (70) 92 High Flow Oxygen 02/02/17 22:07 95 Nasal Cannula 45.0 75 02/02/17 20:00 93 High Flow Oxygen 45.0 75 02/02/17 19:55 36.4 70 20 109/69 (82) 96 High Flow Oxygen 45.0 02/02/17 19:08 60 18 97 Nasal Cannula 45.0 85 02/02/17 16:00 High Flow Oxygen 45.0 75 02/02/17 15:40 36.6 67 22 114/74 (87) 98 High Flow Oxygen 50.0 02/02/17 12:32 89 18 96 Nasal Cannula 50.0 100 02/02/17 12:00 Oxymask 15.0 Constitutional: Well developed, acutely ill appearing female lying in hospital bed. No acute distress. Head: + facial symmetry Eyes: EOMi, PERRLA, 3mm bilaterally no conjunctival injection Mouth: Mallampati [I]. No erythema, exudate, or post nasal gtt Neck: Trachea midline. No adenopathy or masses Respiratory: Non-labored respirations. No wheeze or rhonchi. Transient rales anterior. No clubbing or cyanosis. Cardiovascular: RRR, no MRG. +2 radial pulses. <1s capillary refill. Abdomen: soft, active bowel sounds Integumentary: no rashes, or ecchymosis MSK/Extremities: Moving and developed symmetrically. No peripheral edema. Slight calf assymmetry Rt > Left Neurologic: A&O, data recall in-tact. Appropriate affect. Diagnostics Labs Results Past 24 Hours Test 02/03/17 08:07 Range/Units White Blood Count 13.49 4.8-10.8 K/uL Red Blood Count 3.54 4.2-5.4 M/uL Hemoglobin 10.2 12.0-16.0 g/dL Hematocrit 29.8 37-47 % Mean Corpuscular Volume 84.2 80-100 fL Mean Corpuscular Hemoglobin 28.8 25-34 pg Mean Corpuscular Hemoglobin Concent 34.2 32-36 g/dl Platelet Count 281 130-400 K/uL Mean Platelet Volume 9.0 7.4-10.4 fL Neutrophils (%) (Auto) 91.4 % Lymphocytes (%) (Auto) 3.5 % Monocytes (%) (Auto) 4.7 % Eosinophils (%) (Auto) 0.0 % Basophils (%) (Auto) 0.1 % Neutrophils # (Auto) 12.34 1.4-6.5 K/uL Lymphocytes # (Auto) 0.47 1.2-3.4 K/uL Monocytes # (Auto) 0.63 0.11-0.59 K/uL Eosinophils # (Auto) 0.00 0-0.5 K/uL Basophils # (Auto) 0.01 0-0.2 K/uL RDW Standard Deviation 39.5 36.4-46.3 fL RDW Coefficient of Variation 12.7 11.5-14.5 % Immature Granulocyte % (Auto) 0.3 % Immature Granulocyte # (Auto) 0.04 0.00-0.02 K/uL Sodium Level 134 136-145 mmol/L Potassium Level 4.2 3.5-5.1 mmol/L Chloride Level 103 98-107 mmol/L Carbon Dioxide Level 23 21-32 mmol/L Anion Gap 8.0 3-11 mmol/L Blood Urea Nitrogen 11 7-18 mg/dl Creatinine 0.74 0.60-1.20 mg/dl Est Creatinine Clear Calc Drug Dose 94.0 ml/min Estimated GFR () 108.7 Estimated GFR (Non- 93.8 BUN/Creatinine Ratio 14.3 10-20 Random Glucose 111 70-99 mg/dl Calcium Level 9.3 8.5-10.1 mg/dl Impression Assessment and Plan 51-yo immunosuppressed female admitted with progressive hypoxic respiratory failure - Patient currently not stable for bronchoscopy at this time - Strongly recommend broadening antimicrobial coverage to include Bactrim and acyclovir - but defer to ID - Consider provoked sputum culture with nebulized saline in the AM. - Spot urine protein/cr ratio study and anti-GGM - Increase hydrocortisone dose - Repeat CXR Case discussed and reviewed with Dr. Bourne Patient and case reviewed and plan agreed with.
--- NOTE | 2017-02-03 15:44 | Family Medicine Progress Note ---
Progress Note Date of Service Feb 03, 2017. Subjective Pt evaluation today including: conversation w/ patient, physical exam, chart review, lab review, review of studies Pain: Patient states that she has some epigastric discomfort with deep breaths Voiding: no voiding problems, no incontinence Constitutional: No fever, No chills, No sweats Respiratory: + cough, + sputum, + shortness of breath (with exertion) Cardiovascular: No chest pain, No palpitations Abdomen: No pain, No nausea, No vomiting Neurologic: + weakness, No numbness/tingling Medications Current Inpatient Medications Medications (Trade) Dose Ordered Sig/Miranda Route Start Time Stop Time Status Last Admin Dose Admin Acetaminophen (Tylenol Tab) 650 mg Q4H PRN PO 01/29/17 17:45 02/28/17 17:44 02/01/17 23:39 650 MG Al Hydrox/Mg Hydrox/Simethicone (Maalox Max Susp) 15 ml Q4H PRN PO 01/29/17 17:45 02/28/17 17:44 02/01/17 17:06 15 ML Magnesium Hydroxide (Milk Of Magnesia Susp) 30 ml Q6H PRN PO 01/29/17 17:45 02/28/17 17:44 Polyethylene (Miralax Powder Packet) 17 gm DAILY PRN PO 01/29/17 17:45 02/28/17 17:44 Ondansetron HCl (Zofran Inj) 4 mg Q6H PRN IV 01/29/17 17:45 02/28/17 17:44 Future hold 02/02/17 05:50 4 MG Zolpidem Tartrate (Ambien Tab) 5 mg HSZ PRN PO 01/29/17 17:45 02/28/17 17:44 02/02/17 21:19 5 MG Enoxaparin Sodium (Lovenox Inj) 40 mg QAM SQ 01/30/17 09:00 03/01/17 08:59 02/03/17 09:08 40 MG Amitriptyline HCl (Elavil Tab) 20 mg HS PO 01/29/17 21:00 02/28/17 20:59 02/02/17 21:20 20 MG Aspirin (Ecotrin Tab) 81 mg DAILY PO 01/29/17 18:30 02/28/17 18:29 02/03/17 09:07 81 MG Cholecalciferol (Vitamin D Tab) 2,000 inter.unit DAILY PO 01/30/17 09:00 03/01/17 08:59 02/03/17 09:07 2,000 INTER.UNIT Gabapentin (Neurontin Cap) 900 mg TID PO 01/29/17 21:00 02/28/17 20:59 02/03/17 14:47 900 MG Lisinopril (Zestril Tab) 40 mg QAM PO 01/30/17 09:00 03/01/17 08:59 Future Hold 01/31/17 09:23 40 MG Metoprolol Tartrate (Lopressor Tab) 25 mg QAM PO 01/30/17 09:00 03/01/17 08:59 Future Hold Oxycodone HCl (Roxicodone Immediate Rel Tab) 5 mg QID PO 01/29/17 21:00 02/12/17 20:59 02/03/17 12:28 5 MG Prednisone (PredniSONE TAB) 10 mg DAILY PO 01/30/17 09:00 03/01/17 08:59 02/03/17 09:04 10 MG Cefepime HCl (Consult) 1 ea UD PRN N/A 01/31/17 08:00 03/02/17 07:59 Cefepime HCl 2000 mg/Dextrose 112.5 ml @ 225 mls/hr Q8H IV 01/31/17 08:00 02/07/17 07:59 02/03/17 08:59 225 MLS/HR Phenol (Chloraseptic 1.4% Lamar) 1 sprays Q2H PRN MT 01/31/17 09:30 03/02/17 09:29 01/31/17 09:37 1 SPRAYS Fluoxetine HCl (Prozac Cap) 80 mg DAILY PO 02/01/17 09:00 03/03/17 08:59 02/03/17 09:08 80 MG Calcium Carbonate (Tums Chew Tab) 1,000 mg Q4H PRN PO 01/31/17 20:45 03/02/17 20:44 Pantoprazole Sodium (Protonix Tab) 40 mg QAM PRN PO 02/01/17 00:15 03/03/17 00:14 Levofloxacin 750 mg/Prmx 150 ml @ 100 mls/hr Q24H IV 02/01/17 16:00 02/06/17 15:59 02/02/17 16:43 100 MLS/HR Hydrocortisone Sodium Succinate 50 mg/Syringe 1 ml @ 4 mls/min Q8 IV 02/02/17 14:00 03/04/17 13:59 02/03/17 14:47 4 MLS/MIN Albuterol Sulfate (Ventolin 0.083% 2.5MG/3ML Neb) 2.5 mg Q4RWA INH 02/02/17 20:00 03/04/17 19:59 02/03/17 11:23 2.5 MG Objective Vital Signs Date Time Temp Pulse Resp B/P (MAP) Pulse Ox O2 Delivery O2 Flow Rate FiO2 02/03/17 12:00 High Flow Oxygen 45.0 65 02/03/17 11:24 64 20 92 Nasal Cannula 45.0 75 02/03/17 10:58 36.8 62 20 118/75 (89) 97 High Flow Oxygen 02/03/17 08:00 High Flow Oxygen 45.0 65 02/03/17 07:24 37.1 71 20 105/66 (79) 93 High Flow Oxygen 02/03/17 07:10 67 20 94 Nasal Cannula 45.0 75 02/03/17 04:00 High Flow Oxygen 45.0 65 02/03/17 03:21 36.8 60 20 106/67 (80) 89 High Flow Oxygen 02/03/17 00:00 High Flow Oxygen 45.0 65 02/02/17 23:00 37.0 61 20 95/57 (70) 92 High Flow Oxygen 02/02/17 22:07 95 Nasal Cannula 45.0 75 02/02/17 20:00 93 High Flow Oxygen 45.0 75 02/02/17 19:55 36.4 70 20 109/69 (82) 96 High Flow Oxygen 45.0 02/02/17 19:08 60 18 97 Nasal Cannula 45.0 85 02/02/17 16:00 High Flow Oxygen 45.0 75 02/02/17 15:40 36.6 67 22 114/74 (87) 98 High Flow Oxygen 50.0 Physical Exam General Appearance: WD/WN, no apparent distress, + pertinent finding (Patient on high flow nasal cannula. Appears much improved from yesterday when she was mildly distressed.) Eyes: normal inspection, sclerae normal Respiratory/Chest: chest non-tender, no respiratory distress, no accessory muscle use, + rales (left upper lobe) Cardiovascular: regular rate, rhythm, no edema, no gallop Abdomen: normal bowel sounds, non tender, soft Extremities: non-tender, no calf tenderness Neurologic/Psychiatric: alert, normal mood/affect, oriented x 3 Laboratory Results Results Past 24 Hours Test 02/03/17 08:07 02/03/17 13:54 Range/Units White Blood Count 13.49 4.8-10.8 K/uL Red Blood Count 3.54 4.2-5.4 M/uL Hemoglobin 10.2 12.0-16.0 g/dL Hematocrit 29.8 37-47 % Mean Corpuscular Volume 84.2 80-100 fL Mean Corpuscular Hemoglobin 28.8 25-34 pg Mean Corpuscular Hemoglobin Concent 34.2 32-36 g/dl Platelet Count 281 130-400 K/uL Mean Platelet Volume 9.0 7.4-10.4 fL Neutrophils (%) (Auto) 91.4 % Lymphocytes (%) (Auto) 3.5 % Monocytes (%) (Auto) 4.7 % Eosinophils (%) (Auto) 0.0 % Basophils (%) (Auto) 0.1 % Neutrophils # (Auto) 12.34 1.4-6.5 K/uL Lymphocytes # (Auto) 0.47 1.2-3.4 K/uL Monocytes # (Auto) 0.63 0.11-0.59 K/uL Eosinophils # (Auto) 0.00 0-0.5 K/uL Basophils # (Auto) 0.01 0-0.2 K/uL RDW Standard Deviation 39.5 36.4-46.3 fL RDW Coefficient of Variation 12.7 11.5-14.5 % Immature Granulocyte % (Auto) 0.3 % Immature Granulocyte # (Auto) 0.04 0.00-0.02 K/uL Sodium Level 134 136-145 mmol/L Potassium Level 4.2 3.5-5.1 mmol/L Chloride Level 103 98-107 mmol/L Carbon Dioxide Level 23 21-32 mmol/L Anion Gap 8.0 3-11 mmol/L Blood Urea Nitrogen 11 7-18 mg/dl Creatinine 0.74 0.60-1.20 mg/dl Est Creatinine Clear Calc Drug Dose 94.0 ml/min Estimated GFR () 108.7 Estimated GFR (Non- 93.8 BUN/Creatinine Ratio 14.3 10-20 Random Glucose 111 70-99 mg/dl Calcium Level 9.3 8.5-10.1 mg/dl Assessment and Plan The patient is a 51-year-old female with a past medical history of celiac disease, lupus, Sjogren's, and Raynaud's disease that presents with shortness of breath secondary to a possible atypical pneumonia. The patient is currently on day 6 of IV Levaquin treatment and 4 of IV cefepime, and was recently started on 50 mg of hydrocortisone every 8 hours. Currently the patient is being followed by infectious disease, pulmonology, and rheumatology. Infectious diseases recommended continuing with current antibiotic treatment and supplementing with steroids. We are also currently awaiting cultures for atypicals including Legionella and Mycoplasma. We also ordered repeat chest x- rays today to evaluate for the course of her infection. She appears much improved today, and states that changing to the high flow nasal cannula has made a significant difference in her clinical status. She has now been afebrile for the last 24 hours, and her white count continues to improve. Pulmonology also recommended that we investigate the patient for possible autoimmune causes including an anti-glomerular basement membrane antibodies, in addition to a spot urine protein creatinine ratio study. The patient at this time is not stable enough for bronchoscopy, but that may be reevaluated at a later time. 1) Atypical Pneumonia - Patient clinical status appears significantly improved - Levaquin IV Day 6 - Cefepime IV Day 4 - Stress steroid dosing- 50 mg hydrocortisone every 8 hours - Duo nebs every 4 hours - High flow nasal cannula - Immunocompromised, On CellCept for multiple autoimmune diseases, has been held for the last week and a half - Flutter valve - Incentive spirometry - Legionella and Mycoplasma studies pending - Repeat chest x-ray today 2) 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 lupus - Off of CellCept for 1 week - Continue home prednisone 10 mg - 50 mg hydrocortisone every 8 hours - Rheumatology consult - Possible immune contribution to pulmonary pathology? - Ordered anti-glomerular basement membrane studies in addition to spot urine protein creatinine ratio 3) Hypotension - Appeared to have resolved with normal saline bolus - Holding Lisinopril and Metoprolol this morning 4) History of SVT - Metoprolol 5) Home Medications - Prozac - Amitryptiline - Gabapentin - Oxycodone - Aspirin - Ambien 6) DVT prophylaxis - Lovenox 40 mg 7) CODE STATUS - Full resuscitation Resident Physician Supervision Note: I interviewed and examined the patient. Discussed with Dr. Goodwin and agree with findings and plan as documented in the note. Any exceptions or clarifications are listed here: None Documented By: Kayden Lauren feeling better, breathing easier. all other ROS otherwise negative except for as above d/w pulm and rheum vitals noted nad breathing unlabored no pallor or icterus penumonia severe hypoxia - improving. continue current care. agree w autoimmune w/u for completness. will raise steroids fruther and then when back to PO 30mg prednisone as suggested by rheum otherwise as above Resident Tracking Resident Involvement: Resident Care Provided Care Provided: Adult Hospital Medicine
[2017-02-03] MEDS: LEVOFLOXACIN / D5W 750 MG in PREMIXED IN D5W 150 ML IV SCH (16:15)
--- NOTE | 2017-02-03 17:44 | Rheumatology Consultation ---
Rheumatology Consultation Date of Consultation: Feb 03, 2017. Requesting Physician: Dr Rowley Attending Physician: Dr Oliveira Reason for Consultation: atypical pneumonia in setting of SLE, sogren's History of Present Illness Nargis Davenport is well known to the rheumatology department at [facility] with long standing SLE, Sjogren's. She was followed by Dr Wells for years, I have seen her as well and she is now followed by Dr Ivey. At last visit with Dr Ivey - her imuran had been discontinued secondary to elevated LFTs. she had liver biopsy that did show fatty infiltration. some question of autoimmune hepatitis. Given this Dr Ivey suggested cellcept and she started this in mid to late December. She had already been on MTX, imuran and benlysta and failed all of these agents. she also takes 10mg of prednisone daily. she reports that she started cellcept 1 gram daily and really did not handle that too well. she had called Dr Ivey and she reduced her dose to 1 tab daily (500mg). she had visited her mother at [facility] after knee replacement and then at home which is a intermediate center. she reports she likely had multiple sick contacts. she reports that last week she started to note some fevers - was up to 101. [address] Ivey who suggested stopping cellcept (this was January 25). she did this and waited to see how things went. she did go to urgent care several days later given persistent fevers and sore throat. she also reported some urinary tract issues/discomfort. she was seen at [facility] urgent care - rapid strep was negative and urine cultures were negative. she was not given any abx. she continued to work and noted increasing VALENZUELA with activities and continued fevers. she did not feel great last wednesday and came to the ED and was admitted for pneumonia. CT imaging showed pern consistent with atypical pneumonia - had ground glass changes, No PE, CT could also represent other disease states. I reviewed the CT images. she was started on levaquin . she states initially felt better but wednesday and wednesday started to feel worse. She was seen by Dr Rowley who widened abx coverage with addition of cefepime and placed her on high flow oxygen. she reports that today she is feeling a little better than wednesday and wednesday but not anywhere close to baseline. she was seen by pulm today - no plans for bronch at this point given high flow O2 use. she reports this does not feel like her SLE. she is dealing with her dryness as well - uses biotene products at home and eye drops. she is still having fevers. Pulm was ? atypical viral or fungal etiologies as well. Pulm also considering short bump in steroids - maybe 30mg daily. she reports that over 30mg she gets agitated. she reports her arthritis pains are stable and have not worsened. she was eating with no issues. Past Medical/Surgical History Medical History: arthritis (lumbar ddd), other (SLE, celiac, sjogren's) Family History non contributory Social History Smoking Status: Former Smoker History of Alcohol Use: No Drug Use: none Marital Status: Housing Status: lives with family Occupation Status: unemployed Review of Systems Constitutional: + fever, + sweats, + fatigue Eyes: + problem reported (dryness) ENT: + problem reported (dry mouth, soreness) Respiratory: + see HPI, + dyspnea on exertion Cardiac: No chest pain, No palpitations Musculoskeletal: + joint pain Skin: + problem reported (flushing, no SLE rashes) All Other Systems: Reviewed and Negative Allergies Coded Allergies: Penicillins (Verified Allergy, Intermediate, passes out as a child, ) 01/31/17- INTERVIEW WITH PATIENT, HAS TAKEN AUGMENTIN SINCE REACTION Vancomycin (Verified Allergy, Intermediate, red man syndrome, 01/29/17) Medications Current Inpatient Medications Medications (Trade) Dose Ordered Sig/Miranda Route Start Time Stop Time Status Last Admin Dose Admin Acetaminophen (Tylenol Tab) 650 mg Q4H PRN PO 01/29/17 17:45 02/28/17 17:44 02/01/17 23:39 650 MG Al Hydrox/Mg Hydrox/Simethicone (Maalox Max Susp) 15 ml Q4H PRN PO 01/29/17 17:45 02/28/17 17:44 02/01/17 17:06 15 ML Magnesium Hydroxide (Milk Of Magnesia Susp) 30 ml Q6H PRN PO 01/29/17 17:45 02/28/17 17:44 Polyethylene (Miralax Powder Packet) 17 gm DAILY PRN PO 01/29/17 17:45 02/28/17 17:44 Ondansetron HCl (Zofran Inj) 4 mg Q6H PRN IV 01/29/17 17:45 02/28/17 17:44 Future hold 02/02/17 05:50 4 MG Zolpidem Tartrate (Ambien Tab) 5 mg HSZ PRN PO 01/29/17 17:45 02/28/17 17:44 02/02/17 21:19 5 MG Enoxaparin Sodium (Lovenox Inj) 40 mg QAM SQ 01/30/17 09:00 03/01/17 08:59 02/03/17 09:08 40 MG Amitriptyline HCl (Elavil Tab) 20 mg HS PO 01/29/17 21:00 02/28/17 20:59 02/02/17 21:20 20 MG Aspirin (Ecotrin Tab) 81 mg DAILY PO 01/29/17 18:30 02/28/17 18:29 02/03/17 09:07 81 MG Cholecalciferol (Vitamin D Tab) 2,000 inter.unit DAILY PO 01/30/17 09:00 03/01/17 08:59 02/03/17 09:07 2,000 INTER.UNIT Gabapentin (Neurontin Cap) 900 mg TID PO 01/29/17 21:00 02/28/17 20:59 02/03/17 14:47 900 MG Lisinopril (Zestril Tab) 40 mg QAM PO 01/30/17 09:00 03/01/17 08:59 Future Hold 01/31/17 09:23 40 MG Metoprolol Tartrate (Lopressor Tab) 25 mg QAM PO 01/30/17 09:00 03/01/17 08:59 Future Hold Oxycodone HCl (Roxicodone Immediate Rel Tab) 5 mg QID PO 01/29/17 21:00 02/12/17 20:59 02/03/17 17:04 5 MG Prednisone (PredniSONE TAB) 10 mg DAILY PO 01/30/17 09:00 03/01/17 08:59 02/03/17 09:04 10 MG Cefepime HCl (Consult) 1 ea UD PRN N/A 01/31/17 08:00 03/02/17 07:59 Cefepime HCl 2000 mg/Dextrose 112.5 ml @ 225 mls/hr Q8H IV 01/31/17 08:00 02/07/17 07:59 7/26/17 15:28 225 MLS/HR Phenol (Chloraseptic 1.4% [place]) 1 sprays Q2H PRN MT 01/31/17 09:30 03/02/17 09:29 01/31/17 09:37 1 SPRAYS Fluoxetine HCl (Prozac Cap) 80 mg DAILY PO 02/01/17 09:00 03/03/17 08:59 02/03/17 09:08 80 MG Calcium Carbonate (Tums Chew Tab) 1,000 mg Q4H PRN PO 01/31/17 20:45 03/02/17 20:44 Pantoprazole Sodium (Protonix Tab) 40 mg QAM PRN PO 02/01/17 00:15 03/03/17 00:14 Levofloxacin 750 mg/Prmx 150 ml @ 100 mls/hr Q24H IV 02/01/17 16:00 02/06/17 15:59 02/03/17 16:15 100 MLS/HR Hydrocortisone Sodium Succinate 50 mg/Syringe 1 ml @ 4 mls/min Q8 IV 02/02/17 14:00 03/04/17 13:59 02/03/17 14:47 4 MLS/MIN Albuterol Sulfate (Ventolin 0.083% 2.5MG/3ML Neb) 2.5 mg Q4RWA INH 02/02/17 20:00 03/04/17 19:59 02/03/17 11:23 2.5 MG Physical Exam Date Time Temp Pulse Resp B/P (MAP) Pulse Ox O2 Delivery O2 Flow Rate FiO2 02/03/17 15:36 62 22 118/75 (89) 96 High Flow Oxygen 02/03/17 12:00 High Flow Oxygen 45.0 65 02/03/17 11:24 64 20 92 Nasal Cannula 45.0 75 02/03/17 10:58 36.8 62 20 118/75 (89) 97 High Flow Oxygen 02/03/17 08:00 High Flow Oxygen 45.0 65 02/03/17 07:24 37.1 71 20 105/66 (79) 93 High Flow Oxygen 02/03/17 07:10 67 20 94 Nasal Cannula 45.0 75 02/03/17 04:00 High Flow Oxygen 45.0 65 02/03/17 03:21 36.8 60 20 106/67 (80) 89 High Flow Oxygen 02/03/17 00:00 High Flow Oxygen 45.0 65 02/02/17 23:00 37.0 61 20 95/57 (70) 92 High Flow Oxygen 02/02/17 22:07 95 Nasal Cannula 45.0 75 02/02/17 20:00 93 High Flow Oxygen 45.0 75 02/02/17 19:55 36.4 70 20 109/69 (82) 96 High Flow Oxygen 45.0 02/02/17 19:08 60 18 97 Nasal Cannula 45.0 85 General Appearance: + pertinent finding (alert, NAD examined lying in bed wearing high flow O2, flushed) Eyes: bilateral eyes normal inspection, bilateral eyes EOMI ENT: hearing grossly normal, pharynx normal, + pertinent finding (dry oral mucosa noted) Neck: supple, no adenopathy Respiratory: + pertinent finding (diffuse dry crackles in the bases, clear in upper lung [place]) Cardiovascular: regular rate, rhythm, no gallop, no murmur Abdomen: normal bowel sounds, non tender, soft Musculoskeletal: no synovitis or effusions no tenderness Neurologic/Psychiatric: alert, normal mood/affect, oriented x 3 Skin: + pertinent finding (facial flushing noted, multiple bruises on arms/ hands from blood draws/IV sites) Laboratory Results Last 24 Hours Test 02/03/17 08:07 02/03/17 13:54 White Blood Count 13.49 K/uL Red Blood Count 3.54 M/uL Hemoglobin 10.2 g/dL Hematocrit 29.8 % Mean Corpuscular Volume 84.2 fL Mean Corpuscular Hemoglobin 28.8 pg Mean Corpuscular Hemoglobin Concent 34.2 g/dl Platelet Count 281 K/uL Mean Platelet Volume 9.0 fL Neutrophils (%) (Auto) 91.4 % Lymphocytes (%) (Auto) 3.5 % Monocytes (%) (Auto) 4.7 % Eosinophils (%) (Auto) 0.0 % Basophils (%) (Auto) 0.1 % Neutrophils # (Auto) 12.34 K/uL Lymphocytes # (Auto) 0.47 K/uL Monocytes # (Auto) 0.63 K/uL Eosinophils # (Auto) 0.00 K/uL Basophils # (Auto) 0.01 K/uL RDW Standard Deviation 39.5 fL RDW Coefficient of Variation 12.7 % Immature Granulocyte % (Auto) 0.3 % Immature Granulocyte # (Auto) 0.04 K/uL Sodium Level 134 mmol/L Potassium Level 4.2 mmol/L Chloride Level 103 mmol/L Carbon Dioxide Level 23 mmol/L Anion Gap 8.0 mmol/L Blood Urea Nitrogen 11 mg/dl Creatinine 0.74 mg/dl Est Creatinine Clear Calc Drug Dose 94.0 ml/min Estimated GFR () 108.7 Estimated GFR (Non- 93.8 BUN/Creatinine Ratio 14.3 Random Glucose 111 mg/dl Calcium Level 9.3 mg/dl Assessment & Plan Assessment & Plan: Assessment: Nargis is a 51 y/o wf with long standing SLE, sjogren's who presented with likely atypical pneumonia - I would favor atypical pneumonitis more than CTD related disease. I discussed with Pulmonology Dr Bourne as well. Discussed with primary service Dr Goodwin, Dr Lauren - agree with bumping prednisone to 30mg along with abx coverage to see if helps. would be nice if able to get diagnostic bronch as well to r/o atypical viral etiologies. would continue to hold cellcept for now. Plan: 1. increase pred to 30mg daily x 1 week, 20mg daily x 1 week then resume 10mg daily 2. abx as per ID and primary service 3. Pulm on board and may get bronch pending course 4. can contact me with any concerns 5. Thank you for the consult and involving me in this patient's care 6. will discuss with Dr Ivey about arranging hospital follow up appt - her current appt is not until March
--- NOTE | 2017-02-03 18:48 | DIAGNOSTIC IMAGING REPORT ---
CHEST ONE VIEW PORTABLE CLINICAL HISTORY: 51 years-old Female presenting with Pneumonia, Atypical. TECHNIQUE: Portable upright AP view of the chest was obtained. COMPARISON: 01/31/2017. FINDINGS: Cardiomediastinal silhouette normal. Significant interval increase in bilateral mid to lower lung reticular and groundglass opacities. No large effusion or pneumothorax. Osseous structures and upper abdomen normal. IMPRESSION: 1. Significant interval increase in mid to basilar reticular and groundglass opacities. This could be seen in the setting of pulmonary edema, although multifocal pneumonia and aspiration may also appear similarly. Electronically signed by: Zach Colon M.D. 02/03/2017 6:46 PM Dictated Date/Time: 02/03/2017 6:44 PM
[2017-02-03 19:08] LABS: URINE PROTIEN/CREAT RATIO 0.8 (0-0.2)
--- NOTE | 2017-02-03 19:44 | Infectious Disease Progress Nt ---
Progress Note Date of Service Feb 03, 2017. Subjective Pt evaluation today including: conversation w/ patient, physical exam, chart review, lab review, review of studies, conversation w/ warehouse consultant, review of inpatient medication list Patient is showing some evidence of improvement over last 24 hours, with decreasing shortness of breath, no fever, and slight improvement in appetite. All cultures remain negative to date. Rheumatology and Pulmonary consultations reviewed. All Other Systems: Reviewed and Negative Medications Current Inpatient Medications Medications (Trade) Dose Ordered Sig/Miranda Route Start Time Stop Time Status Last Admin Dose Admin Acetaminophen (Tylenol Tab) 650 mg Q4H PRN PO 01/29/17 17:45 02/28/17 17:44 02/01/17 23:39 650 MG Al Hydrox/Mg Hydrox/Simethicone (Maalox Max Susp) 15 ml Q4H PRN PO 01/29/17 17:45 02/28/17 17:44 02/01/17 17:06 15 ML Magnesium Hydroxide (Milk Of Magnesia Susp) 30 ml Q6H PRN PO 01/29/17 17:45 02/28/17 17:44 Polyethylene (Miralax Powder Packet) 17 gm DAILY PRN PO 01/29/17 17:45 02/28/17 17:44 Ondansetron HCl (Zofran Inj) 4 mg Q6H PRN IV 01/29/17 17:45 02/28/17 17:44 Future hold 02/02/17 05:50 4 MG Zolpidem Tartrate (Ambien Tab) 5 mg HSZ PRN PO 01/29/17 17:45 02/28/17 17:44 02/02/17 21:19 5 MG Enoxaparin Sodium (Lovenox Inj) 40 mg QAM SQ 01/30/17 09:00 03/01/17 08:59 02/03/17 09:08 40 MG Amitriptyline HCl (Elavil Tab) 20 mg HS PO 01/29/17 21:00 02/28/17 20:59 02/02/17 21:20 20 MG Aspirin (Ecotrin Tab) 81 mg DAILY PO 01/29/17 18:30 02/28/17 18:29 02/03/17 09:07 81 MG Cholecalciferol (Vitamin D Tab) 2,000 inter.unit DAILY PO 01/30/17 09:00 03/01/17 08:59 02/03/17 09:07 2,000 INTER.UNIT Gabapentin (Neurontin Cap) 900 mg TID PO 01/29/17 21:00 02/28/17 20:59 02/03/17 14:47 900 MG Lisinopril (Zestril Tab) 40 mg QAM PO 01/30/17 09:00 03/01/17 08:59 Future Hold 01/31/17 09:23 40 MG Metoprolol Tartrate (Lopressor Tab) 25 mg QAM PO 01/30/17 09:00 03/01/17 08:59 Future Hold Oxycodone HCl (Roxicodone Immediate Rel Tab) 5 mg QID PO 01/29/17 21:00 02/12/17 20:59 02/03/17 17:04 5 MG Prednisone (PredniSONE TAB) 10 mg DAILY PO 01/30/17 09:00 03/01/17 08:59 02/03/17 09:04 10 MG Cefepime HCl (Consult) 1 ea UD PRN N/A 01/31/17 08:00 03/02/17 07:59 Cefepime HCl 2000 mg/Dextrose 112.5 ml @ 225 mls/hr Q8H IV 01/31/17 08:00 02/07/17 07:59 02/03/17 15:28 225 MLS/HR Phenol (Chloraseptic 1.4% [place]) 1 sprays Q2H PRN MT 01/31/17 09:30 03/02/17 09:29 01/31/17 09:37 1 SPRAYS Fluoxetine HCl (Prozac Cap) 80 mg DAILY PO 02/01/17 09:00 03/03/17 08:59 02/03/17 09:08 80 MG Calcium Carbonate (Tums Chew Tab) 1,000 mg Q4H PRN PO 01/31/17 20:45 03/02/17 20:44 Pantoprazole Sodium (Protonix Tab) 40 mg QAM PRN PO 02/01/17 00:15 03/03/17 00:14 Levofloxacin 750 mg/Prmx 150 ml @ 100 mls/hr Q24H IV 02/01/17 16:00 02/06/17 15:59 02/03/17 16:15 100 MLS/HR Albuterol Sulfate (Ventolin 0.083% 2.5MG/3ML Neb) 2.5 mg Q4RWA INH 02/02/17 20:00 03/04/17 19:59 02/03/17 15:50 2.5 MG Hydrocortisone Sodium Succinate 100 mg/Syringe 2 ml @ 4 mls/min Q8 IV 02/03/17 22:00 03/05/17 21:59 Objective Vital Signs Date Time Temp Pulse Resp B/P (MAP) Pulse Ox O2 Delivery O2 Flow Rate FiO2 02/03/17 19:27 36.8 73 26 103/69 (80) 93 Room Air 02/03/17 16:00 High Flow Oxygen 45.0 65 02/03/17 15:50 61 20 92 Nasal Cannula 45.0 75 02/03/17 15:36 62 22 118/75 (89) 96 High Flow Oxygen 02/03/17 12:00 High Flow Oxygen 45.0 65 02/03/17 11:24 64 20 92 Nasal Cannula 45.0 75 02/03/17 10:58 36.8 62 20 118/75 (89) 97 High Flow Oxygen 02/03/17 08:00 High Flow Oxygen 45.0 65 02/03/17 07:24 37.1 71 20 105/66 (79) 93 High Flow Oxygen 02/03/17 07:10 67 20 94 Nasal Cannula 45.0 75 02/03/17 04:00 High Flow Oxygen 45.0 65 02/03/17 03:21 36.8 60 20 106/67 (80) 89 High Flow Oxygen 02/03/17 00:00 High Flow Oxygen 45.0 65 02/02/17 23:00 37.0 61 20 95/57 (70) 92 High Flow Oxygen 02/02/17 22:07 95 Nasal Cannula 45.0 75 02/02/17 20:00 93 High Flow Oxygen 45.0 75 02/02/17 19:55 36.4 70 20 109/69 (82) 96 High Flow Oxygen 45.0 Physical Exam General Appearance: WD/WN, no apparent distress Eyes: normal inspection, EOMI, sclerae normal ENT: normal ENT inspection, hearing grossly normal, pharynx normal Neck: supple, no adenopathy, trachea midline Respiratory/Chest: chest non-tender, no respiratory distress, no accessory muscle use ( On and), + rhonchi Cardiovascular: regular rate, rhythm, no gallop, no murmur Abdomen: normal bowel sounds, non tender, soft, no organomegaly Extremities: non-tender, no calf tenderness Neurologic/Psychiatric: alert, normal mood/affect, oriented x 3 Skin: normal color, warm/dry, no rash Lymphatic: no adenopathy Laboratory Results RUN DATE: 02/02/17 [facility] LAB PAGE 1 RUN TIME: 1213 Specimen Inquiry PATIENT: ANTHONY KATE LOC: [facility] U # : [id number] AGE/SX: 51/F ROOM: [facility] REG : 01/29/[address]: Kayden Lauren D.O. : 1965 BED: 1 DIS : STATUS: ADM IN TLOC: SPEC #: [id number] JULIETH: 01/31/17 STATUS: COMP REQ #: [id number] RECD: 01/31/[address] [facility] [address]: Jairo Oliveira MD SOURCE: SPUTUM ENTR: 01/31/[address] [facility] [address]: Edwin Rowley MD [facility]: EXP.SPUTUM Lukas Goodwin MD Hester, Christopher E., M.D. Tussey, Natalie B., MD ORDERED: SPUT CULT/SMR COMMENTS: Has Specimen Been Obtained/Collected? Y Procedure Result Verified Site GRAM STAIN Final 02/01/17-724 RESULT MODERATE EPITHELIAL CELLS MANY POLYS MODERATE GRAM POSITIVE COCCI FEW GRAM POSITIVE BACILLI SPUTUM CULTURE Final 02/02/17-1212 HEAVY NORMAL PEREZ Last 24 Hours Test 02/03/17 00:00 02/03/17 08:07 02/03/17 13:54 Urine Random Creatinine 78.0 mg/dl Urine Random Total Protein 60.0 mg/dl Urine Protein/Creatinine Ratio 0.8 White Blood Count 13.49 K/uL Red Blood Count 3.54 M/uL Hemoglobin 10.2 g/dL Hematocrit 29.8 % Mean Corpuscular Volume 84.2 fL Mean Corpuscular Hemoglobin 28.8 pg Mean Corpuscular Hemoglobin Concent 34.2 g/dl Platelet Count 281 K/uL Mean Platelet Volume 9.0 fL Neutrophils (%) (Auto) 91.4 % Lymphocytes (%) (Auto) 3.5 % Monocytes (%) (Auto) 4.7 % Eosinophils (%) (Auto) 0.0 % Basophils (%) (Auto) 0.1 % Neutrophils # (Auto) 12.34 K/uL Lymphocytes # (Auto) 0.47 K/uL Monocytes # (Auto) 0.63 K/uL Eosinophils # (Auto) 0.00 K/uL Basophils # (Auto) 0.01 K/uL RDW Standard Deviation 39.5 fL RDW Coefficient of Variation 12.7 % Immature Granulocyte % (Auto) 0.3 % Immature Granulocyte # (Auto) 0.04 K/uL Sodium Level 134 mmol/L Potassium Level 4.2 mmol/L Chloride Level 103 mmol/L Carbon Dioxide Level 23 mmol/L Anion Gap 8.0 mmol/L Blood Urea Nitrogen 11 mg/dl Creatinine 0.74 mg/dl Est Creatinine Clear Calc Drug Dose 94.0 ml/min Estimated GFR () 108.7 Estimated GFR (Non- 93.8 BUN/Creatinine Ratio 14.3 Random Glucose 111 mg/dl Calcium Level 9.3 mg/dl CHEST ONE VIEW PORTABLE CLINICAL HISTORY: 51 years-old Female presenting with Pneumonia, Atypical. TECHNIQUE: Portable upright AP view of the chest was obtained. COMPARISON: 01/31/2017. FINDINGS: Cardiomediastinal silhouette normal. Significant interval increase in bilateral mid to lower lung reticular and groundglass opacities. No large effusion or pneumothorax. Osseous structures and upper abdomen normal. IMPRESSION: 1. Significant interval increase in mid to basilar reticular and groundglass opacities. This could be seen in the setting of pulmonary edema, although multifocal pneumonia and aspiration may also appear similarly. Electronically signed by: Zach Colon M.D. 02/03/2017 6:46 PM Dictated Date/Time: 02/03/2017 6:44 PM The status of this report is Signed. Draft = Not yet reviewed or approved by [employer] Plan 51-year-old female with significant autoimmune disease on immunosuppressive therapy now presents with diffuse pneumonitis. X-ray findings more consistent with atypical process including Legionella, mycoplasma, Chlamydia, or viral infection. Other typical community-acquired pathogens possible but less likely. rheumatology consultation thinks autoimmune process less likely. Given clinical improvement over last 24 hours without change in therapy, would recommend continuation of current treatment, and if no signs or symptoms of worsening, would certainly add coverage for PCP and viral infection. Will discuss with all involved and continue to follow.
[2017-02-03] MEDS: AMITRIPTYLINE HCL 10 MG TAB PO SCH (20:53)
[2017-02-03] MEDS: HYDROCORTISONE IV 100 MG in SYRINGE 0 ML IV SCH (21:06)
[2017-02-03] MEDS: ZOLPIDEM TARTRATE 5 MG TAB PO PRN (21:08)
[2017-02-04] VITALS (12 sets, daily range): BP systolic 119–149; BP diastolic 77–88; PULSE 58–136; TEMP 36.4–37.1; O2SAT 91–97
[2017-02-04] MEDS: CEFEPIME IV 2000 MG in DEXTROSE 5% 100ML IV SCH ×3 (00:02→16:17)
[2017-02-04] MEDS: HYDROCORTISONE IV 100 MG in SYRINGE 0 ML IV SCH ×3 (05:33→20:51)
[2017-02-04 05:50] LABS: HEMATOCRIT 28.7 % (37-47); MEAN CELL VOLUME 84.9 fL (80-100); MEAN CORPUSCULAR HEMOGLOBIN 28.7 pg (25-34); MEAN CORPUSCULAR HGB CONC 33.8 g/dl (32-36); MEAN PLATELET VOLUME 9.4 fL (7.4-10.4); PLATELET COUNT 313 K/uL (130-400); RED BLOOD COUNT 3.38 M/uL (4.2-5.4); WHITE BLOOD COUNT 13.07 K/uL (4.8-10.8)
[2017-02-04 06:23] LABS: CREATININE 0.63 mg/dl (0.60-1.20)
[2017-02-04] MEDS ORDERED: COUGH DROP (SUGAR FREE) LOZ 24 LOZ/1 BOX PO PRN (07:00)
[2017-02-04] MEDS ORDERED: NURSING DECISION MEDICATION ORDER SCH (07:00)
[2017-02-04] MEDS: ALBUTEROL 0.083% NEBU SOLN 3 ML VIAL INH SCH ×5 (07:31→23:35)
[2017-02-04] MEDS ORDERED: COUGH DROP (SUGAR FREE) LOZ 24 LOZ/1 BOX ONE (07:38)
[2017-02-04] MEDS: GABAPENTIN 300 MG CAP PO SCH ×3 (08:26→20:52)
[2017-02-04] MEDS: FLUOXETINE HCL 20 MG CAP PO SCH (08:26)
[2017-02-04] MEDS: OXYCODONE HCL IR 5 MG TAB (IMMEDIATE RELEASE) PO SCH ×4 (08:26→20:51)
[2017-02-04] MEDS: ASPIRIN 81 MG ECTAB PO SCH (08:27)
[2017-02-04] MEDS: CHOLECALCIFEROL 1000 INTER.UNIT TAB PO SCH (08:27)
[2017-02-04] MEDS: ENOXAPARIN 40 MG/0.4 ML SYR SQ SCH (08:28)
[2017-02-04 12:34] LABS: LEGIONELLA ANTIGEN NOT DETECTED (NOT DETECTED)
[2017-02-04] MEDS: ONDANSETRON INJ 2 MG/ML 2 ML VIAL IV PRN (13:49)
[2017-02-04] MEDS: LEVOFLOXACIN 750 MG TAB PO SCH (16:43)
--- NOTE | 2017-02-04 18:28 | Family Medicine Progress Note ---
Progress Note Date of Service Feb 04, 2017. Subjective Pt evaluation today including: conversation w/ patient, physical exam, chart review, lab review, review of studies Pain: no pain reported reported this morning Voiding: no voiding problems, no incontinence Patient resting comfortably in bed this morning and states that she is feeling better. She is concerned because she is not coughing up very much mucus. She also wants to know about her current dose of steroids and whether it is more beneficial to be on oral versus IV steroids. Constitutional: No fever, No chills, No sweats Respiratory: + cough, + sputum, + shortness of breath, + dyspnea on exertion , No wheezing Cardiovascular: No chest pain, No palpitations Abdomen: No pain, No nausea, No vomiting Female : + dysuria Medications Current Inpatient Medications Medications (Trade) Dose Ordered Sig/Miranda Route Start Time Stop Time Status Last Admin Dose Admin Acetaminophen (Tylenol Tab) 650 mg Q4H PRN PO 01/29/17 17:45 02/28/17 17:44 02/01/17 23:39 650 MG Al Hydrox/Mg Hydrox/Simethicone (Maalox Max Susp) 15 ml Q4H PRN PO 01/29/17 17:45 02/28/17 17:44 02/01/17 17:06 15 ML Magnesium Hydroxide (Milk Of Magnesia Susp) 30 ml Q6H PRN PO 01/29/17 17:45 02/28/17 17:44 Polyethylene (Miralax Powder Packet) 17 gm DAILY PRN PO 01/29/17 17:45 02/28/17 17:44 Ondansetron HCl (Zofran Inj) 4 mg Q6H PRN IV 01/29/17 17:45 02/28/17 17:44 Future hold 02/04/17 13:49 4 MG Zolpidem Tartrate (Ambien Tab) 5 mg HSZ PRN PO 01/29/17 17:45 02/28/17 17:44 02/03/17 21:08 5 MG Enoxaparin Sodium (Lovenox Inj) 40 mg QAM SQ 01/30/17 09:00 03/01/17 08:59 02/04/17 08:28 40 MG Amitriptyline HCl (Elavil Tab) 20 mg HS PO 01/29/17 21:00 02/28/17 20:59 02/03/17 20:53 20 MG Aspirin (Ecotrin Tab) 81 mg DAILY PO 01/29/17 18:30 02/28/17 18:29 02/04/17 08:27 81 MG Cholecalciferol (Vitamin D Tab) 2,000 inter.unit DAILY PO 01/30/17 09:00 03/01/17 08:59 02/04/17 08:27 2,000 INTER.UNIT Gabapentin (Neurontin Cap) 900 mg TID PO 01/29/17 21:00 02/28/17 20:59 02/04/17 13:46 900 MG Lisinopril (Zestril Tab) 40 mg QAM PO 01/30/17 09:00 03/01/17 08:59 Future Hold 01/31/17 09:23 40 MG Metoprolol Tartrate (Lopressor Tab) 25 mg QAM PO 01/30/17 09:00 03/01/17 08:59 Future Hold Oxycodone HCl (Roxicodone Immediate Rel Tab) 5 mg QID PO 01/29/17 21:00 02/12/17 20:59 02/04/17 17:00 5 MG Prednisone (PredniSONE TAB) 10 mg DAILY PO 01/30/17 09:00 03/01/17 08:59 02/04/17 08:27 10 MG Cefepime HCl (Consult) 1 ea UD PRN N/A 01/31/17 08:00 03/02/17 07:59 Cefepime HCl 2000 mg/Dextrose 112.5 ml @ 225 mls/hr Q8H IV 01/31/17 08:00 02/07/17 07:59 02/04/17 16:17 225 MLS/HR Phenol (Chloraseptic 1.4% [place]) 1 sprays Q2H PRN MT 01/31/17 09:30 03/02/17 09:29 01/31/17 09:37 1 SPRAYS Fluoxetine HCl (Prozac Cap) 80 mg DAILY PO 02/01/17 09:00 03/03/17 08:59 02/04/17 08:26 80 MG Calcium Carbonate (Tums Chew Tab) 1,000 mg Q4H PRN PO 01/31/17 20:45 03/02/17 20:44 Pantoprazole Sodium (Protonix Tab) 40 mg QAM PRN PO 02/01/17 00:15 03/03/17 00:14 Albuterol Sulfate (Ventolin 0.083% 2.5MG/3ML Neb) 2.5 mg Q4RWA INH 02/02/17 20:00 03/04/17 19:59 02/04/17 14:31 2.5 MG Hydrocortisone Sodium Succinate 100 mg/Syringe 2 ml @ 4 mls/min Q8 IV 02/03/17 22:00 03/05/17 21:59 02/04/17 13:46 4 MLS/MIN Menthol (Nice Saadia) 1 saadia PRN PRN PO 02/04/17 07:00 03/06/17 06:59 Levofloxacin (Levaquin Tab) 750 mg DAILY@1600 PO 02/04/17 16:00 02/06/17 15:59 02/04/17 16:43 750 MG Objective Vital Signs Date Time Temp Pulse Resp B/P (MAP) Pulse Ox O2 Delivery O2 Flow Rate FiO2 02/04/17 16:00 High Flow Oxygen 50.0 75 02/04/17 15:50 65 18 149/88 (108) 95 High Flow Oxygen 02/04/17 14:31 63 20 93 Nasal Cannula 45.0 75 02/04/17 12:00 High Flow Oxygen 50.0 75 02/04/17 11:44 75 20 93 Nasal Cannula 45.0 75 02/04/17 11:35 36.8 58 18 119/77 (91) 92 High Flow Oxygen 02/04/17 08:09 36.4 61 20 120/77 (91) 97 High Flow Oxygen 02/04/17 08:00 High Flow Oxygen 50.0 75 02/04/17 07:35 79 20 91 Nasal Cannula 45.0 75 02/04/17 04:48 36.7 58 18 133/84 (100) 94 High Flow Oxygen 02/04/17 04:30 91 High Flow Oxygen 50.0 75 02/04/17 00:02 93 High Flow Oxygen 45.0 75 02/03/17 23:54 36.8 66 20 107/67 (80) 91 02/03/17 21:00 94 High Flow Oxygen 45.0 75 02/03/17 19:27 36.8 73 26 103/69 (80) 93 Room Air 02/03/17 19:00 74 20 92 Nasal Cannula 45.0 75 Physical Exam General Appearance: WD/WN, no apparent distress Respiratory/Chest: chest non-tender, + decreased breath sounds, + rhonchi Cardiovascular: regular rate, rhythm, no edema, no gallop Abdomen: normal bowel sounds, non tender, soft Neurologic/Psychiatric: alert, normal mood/affect, oriented x 3 Laboratory Results Results Past 24 Hours Test 02/04/17 05:08 Range/Units White Blood Count 13.07 4.8-10.8 K/uL Red Blood Count 3.38 4.2-5.4 M/uL Hemoglobin 9.7 12.0-16.0 g/dL Hematocrit 28.7 37-47 % Mean Corpuscular Volume 84.9 80-100 fL Mean Corpuscular Hemoglobin 28.7 25-34 pg Mean Corpuscular Hemoglobin Concent 33.8 32-36 g/dl RDW Standard Deviation 40.0 36.4-46.3 fL RDW Coefficient of Variation 12.9 11.5-14.5 % Platelet Count 313 130-400 K/uL Mean Platelet Volume 9.4 7.4-10.4 fL Creatinine 0.63 0.60-1.20 mg/dl Est Creatinine Clear Calc Drug Dose 110.5 ml/min Estimated GFR () 120.4 Estimated GFR (Non- 103.9 Assessment and Plan Is a 51-year-old female with a past medical history of lupus, Sjogren's, celiac disease, Raynaud's disease that presented with shortness of breath. We've been treating the patient now for approximately 7 days on IV Levaquin and 5 days on IV cefepime. The patient has shown clinical improvement in addition to her white blood cell count coming down. Today her mycoplasma lab investigation came back with a low positive for mycoplasma, but for the time being we will continue using Levaquin and cefepime. The patient is also tolerated the hydrocortisone IV dose well. We will continue with high flow nasal cannula, steroids, and antibiotics and continue to follow the patient. The patient will also be moved to [facility]. We will also consult physical therapy to help move the patient. 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 - Urine protein as well as protein to creatinine ratio elevated. Multifocal contribution including history of lupus as well as hypertension 3) Hypotension - Patient now appears to infect be hypertensive - We'll continue to monitor blood pressures and if they remain high, will restart home hypertensive medications 4) History of SVT - Metoprolol 5) Home Medications - Prozac - Amitryptiline - Gabapentin - Oxycodone - Aspirin - Ambien 6) Physical Therapy - PT/OT eval and treat 7) DVT prophylaxis - Lovenox 40 mg 8) CODE STATUS - Full resuscitation 9) Disposition - Move to Med/Surg Resident Physician Supervision Note: I interviewed and examined the patient. Discussed with Dr. Goodwin and agree with findings and plan as documented in the note. Any exceptions or clarifications are listed here: None Documented By: Kayden Lauren feeling better breathing better talking more no dyspnea. discussed (+) mycoplasma titers. all other ROS otherwise negative except for as above vitals noted nad breathing unlabored no pallor or icterus b/l pneumonia / sepsis /hypoxia - improving; likely predominantly atypicals given b/l patchy and (+) mycoplasma titers. continue gram neg double coverage for now until more improvement, but likely can stop by ?24-48hrs. safe for med surg. PT/OT, increase activity Resident Tracking Resident Involvement: Resident Care Provided Care Provided: Adult Hospital Medicine
--- NOTE | 2017-02-04 19:36 | Pulmonology Progress Note ---
Pulmonary Progress Note Date of Service Feb 04, 2017. Attending Dr. Bourne Subjective The patient still notes dyspnea on exertion and shortness of breath at rest off oxygen but notes overall 60% improvement in her respiratory status in the last 24 hours. Objective Patient is doing well sitting up in a chair she is currently on high flow system but is able to speak full sentences not using accessory muscles are showing increased signs of work of breathing VS: I/Os: Total: +1.5L, 24hr: -655cc SaO2: 90-97% FiO2: 50% RR: 18-20 RESP: Mild expiratory wheezing bilaterally CARD: S1-S2 regular rate and rhythm distant heart sounds ABD: Soft nontender positive bowel sounds EXT: No clubbing cyanosis or edema Labs: Monoscreen: Negative Legionella urine antigen: Not to take it Mycoplasma pneumonia IgM: 778(elevated) WBC: 13K CT angiogram of the chest performed 01/29/2017 No signs of pulmonary embolism Multilobar diffuse groundglass changes with mosaic pattern and interlobular septal thickening CT abdomen pelvis with contrast/IV performed 01/29/2017 No acute processes noted Chest x-ray 02/04/2016 Significant increase in the bibasilar reticular groundglass opacifications Medications: #1 levofloxacin 750 mg daily 4 #2 albuterol nebulizer #3 cefepime 2 g IV every 8 hours #4 Lovenox 40 mg subcutaneous daily #5 prednisone 10 mg by mouth daily Assessment & Plan 51-year-old immunocompetent female admitted with progressive hypoxemia: #1 Hypoxemia: At this time both clinically and via serologic analysis it does appear that the patient was afflicted with Mycoplasma pneumonia. Most cases of this disease are benign but there are notable fulminant cases which can lead to pulmonary infarctions, empyema, pleurisy and diffuse pneumonitis. The patient is currently on Levaquin 750 mg which is noted to be an appropriate antibiotic usually being treated over the 5-7 day window. #2 Hemolytic Anemia: In a few cases Mycoplasma pneumonia can induce hemolytic anemia. This patient does have mild signs of anemia based off her H&H studies. The secondary syndrome is treated with glucocorticoids. If patient continues to show a trend/drop in her H&H Jacob for schistocytes examination. #3 Sign-off: At this time the patient is progressing well and a proper diagnosis appears to been made. I appreciate the patient following up in the pulmonary Department in the 2-3 weeks following her discharge for proper follow- up. Data Medications: Current Inpatient Medications Medications (Trade) Dose Ordered Sig/Miranda Route Start Time Stop Time Status Last Admin Dose Admin Acetaminophen (Tylenol Tab) 650 mg Q4H PRN PO 01/29/17 17:45 02/28/17 17:44 02/01/17 23:39 650 MG Al Hydrox/Mg Hydrox/Simethicone (Maalox Max Susp) 15 ml Q4H PRN PO 01/29/17 17:45 02/28/17 17:44 02/01/17 17:06 15 ML Magnesium Hydroxide (Milk Of Magnesia Susp) 30 ml Q6H PRN PO 01/29/17 17:45 02/28/17 17:44 Polyethylene (Miralax Powder Packet) 17 gm DAILY PRN PO 01/29/17 17:45 02/28/17 17:44 Ondansetron HCl (Zofran Inj) 4 mg Q6H PRN IV 01/29/17 17:45 02/28/17 17:44 Future hold 02/04/17 13:49 4 MG Zolpidem Tartrate (Ambien Tab) 5 mg HSZ PRN PO 01/29/17 17:45 02/28/17 17:44 02/03/17 21:08 5 MG Enoxaparin Sodium (Lovenox Inj) 40 mg QAM SQ 01/30/17 09:00 03/01/17 08:59 02/04/17 08:28 40 MG Amitriptyline HCl (Elavil Tab) 20 mg HS PO 01/29/17 21:00 02/28/17 20:59 02/03/17 20:53 20 MG Aspirin (Ecotrin Tab) 81 mg DAILY PO 01/29/17 18:30 02/28/17 18:29 02/04/17 08:27 81 MG Cholecalciferol (Vitamin D Tab) 2,000 inter.unit DAILY PO 01/30/17 09:00 03/01/17 08:59 02/04/17 08:27 2,000 INTER.UNIT Gabapentin (Neurontin Cap) 900 mg TID PO 01/29/17 21:00 02/28/17 20:59 02/04/17 13:46 900 MG Lisinopril (Zestril Tab) 40 mg QAM PO 01/30/17 09:00 03/01/17 08:59 Future Hold 01/31/17 09:23 40 MG Metoprolol Tartrate (Lopressor Tab) 25 mg QAM PO 01/30/17 09:00 03/01/17 08:59 Future Hold Oxycodone HCl (Roxicodone Immediate Rel Tab) 5 mg QID PO 01/29/17 21:00 02/12/17 20:59 02/04/17 17:00 5 MG Prednisone (PredniSONE TAB) 10 mg DAILY PO 01/30/17 09:00 03/01/17 08:59 02/04/17 08:27 10 MG Cefepime HCl (Consult) 1 ea UD PRN N/A 01/31/17 08:00 03/02/17 07:59 Cefepime HCl 2000 mg/Dextrose 112.5 ml @ 225 mls/hr Q8H IV 01/31/17 08:00 02/07/17 07:59 02/04/17 16:17 225 MLS/HR Phenol (Chloraseptic 1.4% [place]) 1 sprays Q2H PRN MT 01/31/17 09:30 03/02/17 09:29 01/31/17 09:37 1 SPRAYS Fluoxetine HCl (Prozac Cap) 80 mg DAILY PO 02/01/17 09:00 03/03/17 08:59 02/04/17 08:26 80 MG Calcium Carbonate (Tums Chew Tab) 1,000 mg Q4H PRN PO 01/31/17 20:45 03/02/17 20:44 Pantoprazole Sodium (Protonix Tab) 40 mg QAM PRN PO 02/01/17 00:15 03/03/17 00:14 Albuterol Sulfate (Ventolin 0.083% 2.5MG/3ML Neb) 2.5 mg Q4RWA INH 02/02/17 20:00 03/04/17 19:59 02/04/17 14:31 2.5 MG Hydrocortisone Sodium Succinate 100 mg/Syringe 2 ml @ 4 mls/min Q8 IV 02/03/17 22:00 03/05/17 21:59 02/04/17 13:46 4 MLS/MIN Menthol (Nice Saadia) 1 saadia PRN PRN PO 02/04/17 07:00 8/26/17 06:59 Levofloxacin (Levaquin Tab) 750 mg DAILY@1600 PO 02/04/17 16:00 02/06/17 15:59 02/04/17 16:43 750 MG I & O: 24-Hour Column 02/05/17 08:00 Intake Total 30 ml Output Total 800 ml Balance -770 ml Vital Signs: Date Time Temp Pulse Resp B/P (MAP) Pulse Ox O2 Delivery O2 Flow Rate FiO2 02/04/17 18:12 37.1 136 18 131/87 (102) 93 High Flow Oxygen 50.0 75 02/04/17 16:00 High Flow Oxygen 50.0 75 02/04/17 15:50 65 18 149/88 (108) 95 High Flow Oxygen 02/04/17 14:31 63 20 93 Nasal Cannula 45.0 75 02/04/17 12:00 High Flow Oxygen 50.0 75 02/04/17 11:44 75 20 93 Nasal Cannula 45.0 75 02/04/17 11:35 36.8 58 18 119/77 (91) 92 High Flow Oxygen 02/04/17 08:09 36.4 61 20 120/77 (91) 97 High Flow Oxygen 02/04/17 08:00 High Flow Oxygen 50.0 75 02/04/17 07:35 79 20 91 Nasal Cannula 45.0 75 02/04/17 04:48 36.7 58 18 133/84 (100) 94 High Flow Oxygen 02/04/17 04:30 91 High Flow Oxygen 50.0 75 02/04/17 00:02 93 High Flow Oxygen 45.0 75 02/03/17 23:54 36.8 66 20 107/67 (80) 91 02/03/17 21:00 94 High Flow Oxygen 45.0 75 02/03/17 19:27 36.8 73 26 103/69 (80) 93 Room Air Laboratory Results: Last 24 Hours Test 02/04/17 05:08 White Blood Count 13.07 K/uL Red Blood Count 3.38 M/uL Hemoglobin 9.7 g/dL Hematocrit 28.7 % Mean Corpuscular Volume 84.9 fL Mean Corpuscular Hemoglobin 28.7 pg Mean Corpuscular Hemoglobin Concent 33.8 g/dl RDW Standard Deviation 40.0 fL RDW Coefficient of Variation 12.9 % Platelet Count 313 K/uL Mean Platelet Volume 9.4 fL Creatinine 0.63 mg/dl Est Creatinine Clear Calc Drug Dose 110.5 ml/min Estimated GFR () 120.4 Estimated GFR (Non- 103.9
[2017-02-04] MEDS: ZOLPIDEM TARTRATE 5 MG TAB PO PRN (20:51)
[2017-02-04] MEDS: AMITRIPTYLINE HCL 10 MG TAB PO SCH (20:52)
--- NOTE | 2017-02-04 21:38 | Infectious Disease Progress Nt ---
Progress Note Date of Service Feb 04, 2017. Subjective Pt evaluation today including: conversation w/ patient, physical exam, chart review, lab review, review of studies, conversation w/ emergency management consultant, review of inpatient medication list Patient feeling better today, less shortness of breath and cough. Remains afebrile. minimally positive mycoplasma IgM noted. No other new complaints. All Other Systems: Reviewed and Negative Medications Current Inpatient Medications Medications (Trade) Dose Ordered Sig/Miranda Route Start Time Stop Time Status Last Admin Dose Admin Acetaminophen (Tylenol Tab) 650 mg Q4H PRN PO 01/29/17 17:45 02/28/17 17:44 02/01/17 23:39 650 MG Al Hydrox/Mg Hydrox/Simethicone (Maalox Max Susp) 15 ml Q4H PRN PO 01/29/17 17:45 02/28/17 17:44 02/01/17 17:06 15 ML Magnesium Hydroxide (Milk Of Magnesia Susp) 30 ml Q6H PRN PO 01/29/17 17:45 02/28/17 17:44 Polyethylene (Miralax Powder Packet) 17 gm DAILY PRN PO 01/29/17 17:45 02/28/17 17:44 Ondansetron HCl (Zofran Inj) 4 mg Q6H PRN IV 01/29/17 17:45 02/28/17 17:44 Future hold 02/04/17 13:49 4 MG Zolpidem Tartrate (Ambien Tab) 5 mg HSZ PRN PO 01/29/17 17:45 02/28/17 17:44 02/04/17 20:51 5 MG Enoxaparin Sodium (Lovenox Inj) 40 mg QAM SQ 01/30/17 09:00 03/01/17 08:59 02/04/17 08:28 40 MG Amitriptyline HCl (Elavil Tab) 20 mg HS PO 01/29/17 21:00 02/28/17 20:59 02/04/17 20:52 20 MG Aspirin (Ecotrin Tab) 81 mg DAILY PO 01/29/17 18:30 02/28/17 18:29 02/04/17 08:27 81 MG Cholecalciferol (Vitamin D Tab) 2,000 inter.unit DAILY PO 01/30/17 09:00 03/01/17 08:59 02/04/17 08:27 2,000 INTER.UNIT Gabapentin (Neurontin Cap) 900 mg TID PO 01/29/17 21:00 02/28/17 20:59 02/04/17 20:52 900 MG Lisinopril (Zestril Tab) 40 mg QAM PO 01/30/17 09:00 03/01/17 08:59 Future Hold 01/31/17 09:23 40 MG Metoprolol Tartrate (Lopressor Tab) 25 mg QAM PO 01/30/17 09:00 03/01/17 08:59 Future Hold Oxycodone HCl (Roxicodone Immediate Rel Tab) 5 mg QID PO 01/29/17 21:00 02/12/17 20:59 02/04/17 20:51 5 MG Prednisone (PredniSONE TAB) 10 mg DAILY PO 01/30/17 09:00 03/01/17 08:59 02/04/17 08:27 10 MG Cefepime HCl (Consult) 1 ea UD PRN N/A 01/31/17 08:00 03/02/17 07:59 Cefepime HCl 2000 mg/Dextrose 112.5 ml @ 225 mls/hr Q8H IV 01/31/17 08:00 02/07/17 07:59 02/04/17 16:17 225 MLS/HR Phenol (Chloraseptic 1.4% [place]) 1 sprays Q2H PRN MT 01/31/17 09:30 03/02/17 09:29 01/31/17 09:37 1 SPRAYS Fluoxetine HCl (Prozac Cap) 80 mg DAILY PO 02/01/17 09:00 03/03/17 08:59 02/04/17 08:26 80 MG Calcium Carbonate (Tums Chew Tab) 1,000 mg Q4H PRN PO 01/31/17 20:45 03/02/17 20:44 Pantoprazole Sodium (Protonix Tab) 40 mg QAM PRN PO 02/01/17 00:15 03/03/17 00:14 Albuterol Sulfate (Ventolin 0.083% 2.5MG/3ML Neb) 2.5 mg Q4RWA INH 02/02/17 20:00 03/04/17 19:59 02/04/17 20:00 2.5 MG Hydrocortisone Sodium Succinate 100 mg/Syringe 2 ml @ 4 mls/min Q8 IV 02/03/17 22:00 03/05/17 21:59 02/04/17 20:51 4 MLS/MIN Menthol (Nice Saadia) 1 saadia PRN PRN PO 02/04/17 07:00 03/06/17 06:59 Levofloxacin (Levaquin Tab) 750 mg DAILY@1600 PO 02/04/17 16:00 02/06/17 15:59 02/04/17 16:43 750 MG Objective Vital Signs Date Time Temp Pulse Resp B/P (MAP) Pulse Ox O2 Delivery O2 Flow Rate FiO2 02/04/17 20:47 59 20 92 Nasal Cannula 45.0 80 02/04/17 18:12 37.1 136 18 131/87 (102) 93 High Flow Oxygen 50.0 75 02/04/17 16:00 High Flow Oxygen 50.0 75 02/04/17 15:50 65 18 149/88 (108) 95 High Flow Oxygen 02/04/17 14:31 63 20 93 Nasal Cannula 45.0 75 02/04/17 12:00 High Flow Oxygen 50.0 75 02/04/17 11:44 75 20 93 Nasal Cannula 45.0 75 02/04/17 11:35 36.8 58 18 119/77 (91) 92 High Flow Oxygen 02/04/17 08:09 36.4 61 20 120/77 (91) 97 High Flow Oxygen 02/04/17 08:00 High Flow Oxygen 50.0 75 02/04/17 07:35 79 20 91 Nasal Cannula 45.0 75 02/04/17 04:48 36.7 58 18 133/84 (100) 94 High Flow Oxygen 02/04/17 04:30 91 High Flow Oxygen 50.0 75 02/04/17 00:02 93 High Flow Oxygen 45.0 75 02/03/17 23:54 36.8 66 20 107/67 (80) 91 Laboratory Results Last 24 Hours Test 02/04/17 05:08 White Blood Count 13.07 K/uL Red Blood Count 3.38 M/uL Hemoglobin 9.7 g/dL Hematocrit 28.7 % Mean Corpuscular Volume 84.9 fL Mean Corpuscular Hemoglobin 28.7 pg Mean Corpuscular Hemoglobin Concent 33.8 g/dl RDW Standard Deviation 40.0 fL RDW Coefficient of Variation 12.9 % Platelet Count 313 K/uL Mean Platelet Volume 9.4 fL Creatinine 0.63 mg/dl Est Creatinine Clear Calc Drug Dose 110.5 ml/min Estimated GFR () 120.4 Estimated GFR (Non- 103.9 Assessment and Plan 51-year-old female with significant autoimmune disease on immunosuppressive therapy now presents with diffuse pneumonitis. X-ray findings more consistent with atypical process i Now with minimally positive IgM for mycoplasma. Given clinical improvement, patient should continue on present antibiotics, and would recommend convalescent mycoplasma serology to confirm diagnosis. Will follow.
[2017-02-05] VITALS (11 sets, daily range): BP systolic 109–154; BP diastolic 68–92; PULSE 62–75; TEMP 36.4–37; O2SAT 75–100
[2017-02-05] MEDS: CEFEPIME IV 2000 MG in DEXTROSE 5% 100ML IV SCH ×3 (00:30→16:10)
[2017-02-05] MEDS: HYDROCORTISONE IV 100 MG in SYRINGE 0 ML IV SCH ×3 (05:26→21:31)
[2017-02-05] MEDS: ENOXAPARIN 40 MG/0.4 ML SYR SQ SCH (07:48)
[2017-02-05] MEDS: OXYCODONE HCL IR 5 MG TAB (IMMEDIATE RELEASE) PO SCH ×4 (07:49→21:24)
[2017-02-05] MEDS: CHOLECALCIFEROL 1000 INTER.UNIT TAB PO SCH (07:50)
[2017-02-05] MEDS: GABAPENTIN 300 MG CAP PO SCH ×3 (07:50→21:25)
[2017-02-05] MEDS: ASPIRIN 81 MG ECTAB PO SCH (07:50)
[2017-02-05] MEDS: FLUOXETINE HCL 20 MG CAP PO SCH (07:50)
[2017-02-05 07:59] LABS: COMPLETE YES; HEMATOCRIT 29.4 % (37-47); IG% 0.2 %; LYMPH % 7.2 %; LYMPH ABS # 0.87 K/uL (1.2-3.4); MEAN CELL VOLUME 84.2 fL (80-100); MEAN CORPUSCULAR HEMOGLOBIN 29.5 pg (25-34); MONO % 2.7 %; NEUT % 89.9 %; PLATELET COUNT 315 K/uL (130-400); RED BLOOD COUNT 3.49 M/uL (4.2-5.4); WHITE BLOOD COUNT 12.01 K/uL (4.8-10.8)
[2017-02-05 08:35] LABS: BUN/CREATININE RATIO 23.4 (10-20); CALCIUM 9.2 mg/dl (8.5-10.1); CREATININE 0.7 mg/dl (0.60-1.20)
[2017-02-05] MEDS: ALBUTEROL 0.083% NEBU SOLN 3 ML VIAL INH SCH ×3 (11:24→19:40)
--- NOTE | 2017-02-05 16:01 | Infectious Disease Progress Nt ---
Progress Note Date of Service Feb 05, 2017. Subjective Pt evaluation today including: conversation w/ patient, physical exam, chart review, lab review, review of studies, conversation w/ knowledge management consultant, review of inpatient medication list Slowly improving with decrease in shortness of breath, still with cough. No fever. Tolerating antibiotic without apparent difficulty. All Other Systems: Reviewed and Negative Medications Current Inpatient Medications Medications (Trade) Dose Ordered Sig/Miranda Route Start Time Stop Time Status Last Admin Dose Admin Acetaminophen (Tylenol Tab) 650 mg Q4H PRN PO 01/29/17 17:45 02/28/17 17:44 02/01/17 23:39 650 MG Al Hydrox/Mg Hydrox/Simethicone (Maalox Max Susp) 15 ml Q4H PRN PO 01/29/17 17:45 02/28/17 17:44 02/01/17 17:06 15 ML Magnesium Hydroxide (Milk Of Magnesia Susp) 30 ml Q6H PRN PO 01/29/17 17:45 02/28/17 17:44 Polyethylene (Miralax Powder Packet) 17 gm DAILY PRN PO 01/29/17 17:45 02/28/17 17:44 Ondansetron HCl (Zofran Inj) 4 mg Q6H PRN IV 01/29/17 17:45 02/28/17 17:44 Future hold 02/04/17 13:49 4 MG Zolpidem Tartrate (Ambien Tab) 5 mg HSZ PRN PO 01/29/17 17:45 02/28/17 17:44 02/04/17 20:51 5 MG Enoxaparin Sodium (Lovenox Inj) 40 mg QAM SQ 01/30/17 09:00 03/01/17 08:59 02/05/17 07:48 40 MG Amitriptyline HCl (Elavil Tab) 20 mg HS PO 01/29/17 21:00 02/28/17 20:59 02/04/17 20:52 20 MG Aspirin (Ecotrin Tab) 81 mg DAILY PO 01/29/17 18:30 02/28/17 18:29 02/05/17 07:50 81 MG Cholecalciferol (Vitamin D Tab) 2,000 inter.unit DAILY PO 01/30/17 09:00 03/01/17 08:59 02/05/17 07:50 2,000 INTER.UNIT Gabapentin (Neurontin Cap) 900 mg TID PO 01/29/17 21:00 02/28/17 20:59 02/05/17 13:01 900 MG Lisinopril (Zestril Tab) 40 mg QAM PO 01/30/17 09:00 03/01/17 08:59 Future Hold 01/31/17 09:23 40 MG Metoprolol Tartrate (Lopressor Tab) 25 mg QAM PO 01/30/17 09:00 03/01/17 08:59 Future Hold Oxycodone HCl (Roxicodone Immediate Rel Tab) 5 mg QID PO 01/29/17 21:00 02/12/17 20:59 02/05/17 13:01 5 MG Prednisone (PredniSONE TAB) 10 mg DAILY PO 01/30/17 09:00 03/01/17 08:59 02/05/17 07:49 10 MG Cefepime HCl (Consult) 1 ea UD PRN N/A 01/31/17 08:00 03/02/17 07:59 Cefepime HCl 2000 mg/Dextrose 112.5 ml @ 225 mls/hr Q8H IV 01/31/17 08:00 02/07/17 07:59 02/05/17 07:48 225 MLS/HR Phenol (Chloraseptic 1.4% [place]) 1 sprays Q2H PRN MT 01/31/17 09:30 03/02/17 09:29 01/31/17 09:37 1 SPRAYS Fluoxetine HCl (Prozac Cap) 80 mg DAILY PO 02/01/17 09:00 03/03/17 08:59 02/05/17 07:50 80 MG Calcium Carbonate (Tums Chew Tab) 1,000 mg Q4H PRN PO 01/31/17 20:45 03/02/17 20:44 Pantoprazole Sodium (Protonix Tab) 40 mg QAM PRN PO 02/01/17 00:15 03/03/17 00:14 02/05/17 07:49 40 MG Albuterol Sulfate (Ventolin 0.083% 2.5MG/3ML Neb) 2.5 mg Q4RWA INH 02/02/17 20:00 03/04/17 19:59 02/05/17 15:40 2.5 MG Hydrocortisone Sodium Succinate 100 mg/Syringe 2 ml @ 4 mls/min Q8 IV 02/03/17 22:00 03/05/17 21:59 02/05/17 13:01 4 MLS/MIN Menthol (Nice Saadia) 1 saadia PRN PRN PO 02/04/17 07:00 03/06/17 06:59 Levofloxacin (Levaquin Tab) 750 mg DAILY@1600 PO 02/04/17 16:00 02/06/17 15:59 02/04/17 16:43 750 MG Objective Vital Signs Date Time Temp Pulse Resp B/P (MAP) Pulse Ox O2 Delivery O2 Flow Rate FiO2 02/05/17 15:40 66 20 94 Nasal Cannula 45.0 75 02/05/17 14:59 37.0 62 18 154/92 (112) 92 High Flow Oxygen 02/05/17 11:24 72 20 97 Nasal Cannula 45.0 75 02/05/17 10:40 96 02/05/17 09:41 75 High Flow Oxygen 45.0 Humidified Oxygen 02/05/17 07:48 71 20 93 Nasal Cannula 45.0 75 02/05/17 07:30 36.8 73 18 124/76 (92) 93 High Flow Oxygen 02/05/17 00:32 36.8 75 18 109/68 (82) 92 Room Air 02/05/17 00:00 High Flow Oxygen 45.0 75 02/04/17 23:35 71 20 91 Nasal Cannula 45.0 75 02/04/17 20:47 59 20 92 Nasal Cannula 45.0 80 02/04/17 18:12 37.1 136 18 131/87 (102) 93 High Flow Oxygen 50.0 75 02/04/17 16:00 High Flow Oxygen 50.0 75 Physical Exam General Appearance: WD/WN, no apparent distress Eyes: normal inspection, EOMI, sclerae normal ENT: normal ENT inspection, pharynx normal Neck: supple, no adenopathy, trachea midline Respiratory/Chest: chest non-tender, no respiratory distress, + rales Cardiovascular: regular rate, rhythm, no gallop, no murmur Abdomen: normal bowel sounds, non tender, soft, no organomegaly Extremities: non-tender, no calf tenderness Neurologic/Psychiatric: alert, oriented x 3 Skin: normal color, warm/dry, no rash Lymphatic: no adenopathy Laboratory Results Last 24 Hours Test 7/28/17 07:44 White Blood Count 12.01 K/uL Red Blood Count 3.49 M/uL Hemoglobin 10.3 g/dL Hematocrit 29.4 % Mean Corpuscular Volume 84.2 fL Mean Corpuscular Hemoglobin 29.5 pg Mean Corpuscular Hemoglobin Concent 35.0 g/dl Platelet Count 315 K/uL Mean Platelet Volume 9.0 fL Neutrophils (%) (Auto) 89.9 % Lymphocytes (%) (Auto) 7.2 % Monocytes (%) (Auto) 2.7 % Eosinophils (%) (Auto) 0.0 % Basophils (%) (Auto) 0.0 % Neutrophils # (Auto) 10.78 K/uL Lymphocytes # (Auto) 0.87 K/uL Monocytes # (Auto) 0.33 K/uL Eosinophils # (Auto) 0.00 K/uL Basophils # (Auto) 0.00 K/uL RDW Standard Deviation 39.4 fL RDW Coefficient of Variation 13.0 % Immature Granulocyte % (Auto) 0.2 % Immature Granulocyte # (Auto) 0.03 K/uL Sodium Level 135 mmol/L Potassium Level 4.0 mmol/L Chloride Level 104 mmol/L Carbon Dioxide Level 22 mmol/L Anion Gap 9.0 mmol/L Blood Urea Nitrogen 16 mg/dl Creatinine 0.70 mg/dl Est Creatinine Clear Calc Drug Dose 99.4 ml/min Estimated GFR () 116.3 Estimated GFR (Non- 100.3 BUN/Creatinine Ratio 23.4 Random Glucose 103 mg/dl Calcium Level 9.2 mg/dl Assessment and Plan 51-year-old female with significant autoimmune disease on immunosuppressive therapy now presents with diffuse pneumonitis. X-ray findings more consistent with atypical process. Now with minimally positive IgM for mycoplasma. Given clinical improvement, patient should continue on Levofloxacin to complete 14 days of therapy. Would obtain convalescent mycoplasma serologies in several weeks to confirm diagnosis. We will continue to follow.
[2017-02-05] MEDS: LEVOFLOXACIN 750 MG TAB PO SCH (16:11)
--- NOTE | 2017-02-05 18:00 | Family Medicine Progress Note ---
Progress Note Date of Service Feb 05, 2017. Subjective Pt evaluation today including: conversation w/ patient, physical exam, chart review, lab review, review of studies Pain: no pain reported this morning Voiding: no voiding problems, no incontinence Patient is resting comfortably in bed this morning with no acute complaints overnight. She states that her shortness of breath is getting more improved every day. She also thinks that respiratory therapy adding humidified air to her high flow nasal cannula has made a significant improvement. She denies any fever overnight. Constitutional: + fatigue, No fever, No chills, No sweats Respiratory: + cough, + sputum, + shortness of breath, + dyspnea on exertion , No wheezing Cardiovascular: No chest pain, No palpitations Abdomen: No pain, No nausea, No vomiting, No diarrhea, No constipation Female : No dysuria Medications Current Inpatient Medications Medications (Trade) Dose Ordered Sig/Miranda Route Start Time Stop Time Status Last Admin Dose Admin Acetaminophen (Tylenol Tab) 650 mg Q4H PRN PO 01/29/17 17:45 02/28/17 17:44 02/01/17 23:39 650 MG Al Hydrox/Mg Hydrox/Simethicone (Maalox Max Susp) 15 ml Q4H PRN PO 01/29/17 17:45 02/28/17 17:44 02/01/17 17:06 15 ML Magnesium Hydroxide (Milk Of Magnesia Susp) 30 ml Q6H PRN PO 01/29/17 17:45 02/28/17 17:44 Polyethylene (Miralax Powder Packet) 17 gm DAILY PRN PO 01/29/17 17:45 02/28/17 17:44 Ondansetron HCl (Zofran Inj) 4 mg Q6H PRN IV 01/29/17 17:45 02/28/17 17:44 Future hold 02/04/17 13:49 4 MG Zolpidem Tartrate (Ambien Tab) 5 mg HSZ PRN PO 01/29/17 17:45 02/28/17 17:44 02/04/17 20:51 5 MG Enoxaparin Sodium (Lovenox Inj) 40 mg QAM SQ 01/30/17 09:00 03/01/17 08:59 02/05/17 07:48 40 MG Amitriptyline HCl (Elavil Tab) 20 mg HS PO 01/29/17 21:00 8/20/17 20:59 02/04/17 20:52 20 MG Aspirin (Ecotrin Tab) 81 mg DAILY PO 01/29/17 18:30 02/28/17 18:29 02/05/17 07:50 81 MG Cholecalciferol (Vitamin D Tab) 2,000 inter.unit DAILY PO 01/30/17 09:00 03/01/17 08:59 02/05/17 07:50 2,000 INTER.UNIT Gabapentin (Neurontin Cap) 900 mg TID PO 01/29/17 21:00 02/28/17 20:59 02/05/17 13:01 900 MG Lisinopril (Zestril Tab) 40 mg QAM PO 01/30/17 09:00 03/01/17 08:59 Future Hold 01/31/17 09:23 40 MG Metoprolol Tartrate (Lopressor Tab) 25 mg QAM PO 01/30/17 09:00 03/01/17 08:59 Future Hold Oxycodone HCl (Roxicodone Immediate Rel Tab) 5 mg QID PO 01/29/17 21:00 02/12/17 20:59 02/05/17 17:05 5 MG Prednisone (PredniSONE TAB) 10 mg DAILY PO 01/30/17 09:00 03/01/17 08:59 02/05/17 07:49 10 MG Cefepime HCl (Consult) 1 ea UD PRN N/A 01/31/17 08:00 03/02/17 07:59 Cefepime HCl 2000 mg/Dextrose 112.5 ml @ 225 mls/hr Q8H IV 01/31/17 08:00 02/07/17 07:59 02/05/17 16:10 225 MLS/HR Phenol (Chloraseptic 1.4% [place]) 1 sprays Q2H PRN MT 01/31/17 09:30 03/02/17 09:29 01/31/17 09:37 1 SPRAYS Fluoxetine HCl (Prozac Cap) 80 mg DAILY PO 02/01/17 09:00 03/03/17 08:59 02/05/17 07:50 80 MG Calcium Carbonate (Tums Chew Tab) 1,000 mg Q4H PRN PO 01/31/17 20:45 03/02/17 20:44 Pantoprazole Sodium (Protonix Tab) 40 mg QAM PRN PO 02/01/17 00:15 03/03/17 00:14 02/05/17 07:49 40 MG Albuterol Sulfate (Ventolin 0.083% 2.5MG/3ML Neb) 2.5 mg Q4RWA INH 02/02/17 20:00 03/04/17 19:59 02/05/17 15:40 2.5 MG Hydrocortisone Sodium Succinate 100 mg/Syringe 2 ml @ 4 mls/min Q8 IV 02/03/17 22:00 03/05/17 21:59 02/05/17 13:01 4 MLS/MIN Menthol (Nice Saadia) 1 saadia PRN PRN PO 02/04/17 07:00 03/06/17 06:59 Levofloxacin (Levaquin Tab) 750 mg DAILY@1600 PO 02/04/17 16:00 02/06/17 15:59 02/05/17 16:11 750 MG Objective Vital Signs Date Time Temp Pulse Resp B/P (MAP) Pulse Ox O2 Delivery O2 Flow Rate FiO2 02/05/17 15:40 66 20 94 Nasal Cannula 45.0 75 02/05/17 14:59 37.0 62 18 154/92 (112) 92 High Flow Oxygen 02/05/17 11:24 72 20 97 Nasal Cannula 45.0 75 02/05/17 10:40 96 02/05/17 09:41 75 High Flow Oxygen 45.0 Humidified Oxygen 02/05/17 07:48 71 20 93 Nasal Cannula 45.0 75 02/05/17 07:30 36.8 73 18 124/76 (92) 93 High Flow Oxygen 02/05/17 00:32 36.8 75 18 109/68 (82) 92 Room Air 02/05/17 00:00 High Flow Oxygen 45.0 75 02/04/17 23:35 71 20 91 Nasal Cannula 45.0 75 02/04/17 20:47 59 20 92 Nasal Cannula 45.0 80 02/04/17 18:12 37.1 136 18 131/87 (102) 93 High Flow Oxygen 50.0 75 Physical Exam General Appearance: WD/WN, no apparent distress Respiratory/Chest: chest non-tender, + decreased breath sounds, + wheezing ( bilaterally) Cardiovascular: regular rate, rhythm, no edema, no gallop Abdomen: normal bowel sounds, non tender, soft Extremities: no pedal edema, no calf tenderness Neurologic/Psychiatric: alert, normal mood/affect, oriented x 3 Laboratory Results Results Past 24 Hours Test 02/05/17 07:44 Range/Units White Blood Count 12.01 4.8-10.8 K/uL Red Blood Count 3.49 4.2-5.4 M/uL Hemoglobin 10.3 12.0-16.0 g/dL Hematocrit 29.4 37-47 % Mean Corpuscular Volume 84.2 80-100 fL Mean Corpuscular Hemoglobin 29.5 25-34 pg Mean Corpuscular Hemoglobin Concent 35.0 32-36 g/dl Platelet Count 315 130-400 K/uL Mean Platelet Volume 9.0 7.4-10.4 fL Neutrophils (%) (Auto) 89.9 % Lymphocytes (%) (Auto) 7.2 % Monocytes (%) (Auto) 2.7 % Eosinophils (%) (Auto) 0.0 % Basophils (%) (Auto) 0.0 % Neutrophils # (Auto) 10.78 1.4-6.5 K/uL Lymphocytes # (Auto) 0.87 1.2-3.4 K/uL Monocytes # (Auto) 0.33 0.11-0.59 K/uL Eosinophils # (Auto) 0.00 0-0.5 K/uL Basophils # (Auto) 0.00 0-0.2 K/uL RDW Standard Deviation 39.4 36.4-46.3 fL RDW Coefficient of Variation 13.0 11.5-14.5 % Immature Granulocyte % (Auto) 0.2 % Immature Granulocyte # (Auto) 0.03 0.00-0.02 K/uL Sodium Level 135 136-145 mmol/L Potassium Level 4.0 3.5-5.1 mmol/L Chloride Level 104 98-107 mmol/L Carbon Dioxide Level 22 21-32 mmol/L Anion Gap 9.0 3-11 mmol/L Blood Urea Nitrogen 16 7-18 mg/dl Creatinine 0.70 0.60-1.20 mg/dl Est Creatinine Clear Calc Drug Dose 99.4 ml/min Estimated GFR () 116.3 Estimated GFR (Non- 100.3 BUN/Creatinine Ratio 23.4 10-20 Random Glucose 103 70-99 mg/dl Calcium Level 9.2 8.5-10.1 mg/dl Assessment and Plan Patient is a 51-year-old female with a past medical history of lupus, Sjogren's , celiac disease and Raynaud's disease that presented to the ED with shortness of breath. She is currently on day 8 of hospitalization and is continually improving with antibiotic treatment. Her mycoplasma IgM test came back positive yesterday so we are continuing to treat with Levaquin as we have been since admission. She is also receiving high-dose steroids and continues to improve. The patient does remain on high flow nasal cannula at this time and is short of breath with exertion. Her white blood cell count also continues to improve. 1) Atypical Pneumonia - Clinically improving - Mycoplasma IgM 778 = low positive - CXR: Multifocal patchy opacities most concerning for multifocal pneumonia - Levaquin IV Day 8 - Cefepime IV Day 6 - As long as the patient remains afebrile, we will discontinue cefepime tomorrow - Stress steroid dosing- 50 mg hydrocortisone every 8 hours - Duo nebs every 4 hours - High flow nasal cannula - Immunocompromised, On CellCept for multiple autoimmune diseases, has been held for the last week and a half - Flutter valve - Incentive spirometry 2) 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 lupus - Off of CellCept for 1 week - Continue home prednisone 10 mg - 50 mg hydrocortisone every 8 hours - Rheumatology consult - Urine protein as well as protein to creatinine ratio elevated. Multifocal contribution including history of lupus as well as hypertension 3) Hypotension - Patient blood pressure continues to fluctuate - We'll continue to monitor blood pressures and if they remain high, will restart home hypertensive medications 4) History of SVT - Metoprolol 5) Home Medications - Prozac - Amitryptiline - Gabapentin - Oxycodone - Aspirin - Ambien 6) Physical Therapy - PT/OT eval and treat 7) DVT prophylaxis - Lovenox 40 mg 8) CODE STATUS - Full resuscitation Resident Physician Supervision Note: I interviewed and examined the patient. Discussed with Dr. Goodwin and agree with findings and plan as documented in the note. Any exceptions or clarifications are listed here: None Documented By: Kayden Lauren feeling better less VALENZUELA stilll has to sit and rest for a minute or two but improving. feeling good about progress. discussed high probability of needing home O2 vitals noted nad breathing unlabored no pallor or icterus CAP / atypical pneumonia w sepsis and severe hypoxia - imrpoving. continue current care. PT/OT Resident Tracking Resident Involvement: Resident Care Provided Care Provided: Adult Hospital Medicine
[2017-02-05] MEDS: AMITRIPTYLINE HCL 10 MG TAB PO SCH (21:25)
[2017-02-05] MEDS: ZOLPIDEM TARTRATE 5 MG TAB PO PRN (21:31)
[2017-02-06] VITALS (11 sets, daily range): BP systolic 111–174; BP diastolic 74–95; PULSE 61–87; TEMP 36.5–37.1; O2SAT 92–100
[2017-02-06] MEDS: CEFEPIME IV 2000 MG in DEXTROSE 5% 100ML IV SCH ×4 (00:24→23:30)
[2017-02-06] MEDS: HYDROCORTISONE IV 100 MG in SYRINGE 0 ML IV SCH ×3 (05:30→22:03)
[2017-02-06] MEDS: ALBUTEROL 0.083% NEBU SOLN 3 ML VIAL INH SCH ×4 (07:25→19:19)
[2017-02-06] MEDS: GABAPENTIN 300 MG CAP PO SCH ×3 (08:07→20:32)
[2017-02-06] MEDS: CHOLECALCIFEROL 1000 INTER.UNIT TAB PO SCH (08:08)
[2017-02-06] MEDS: ASPIRIN 81 MG ECTAB PO SCH (08:08)
[2017-02-06] MEDS: ENOXAPARIN 40 MG/0.4 ML SYR SQ SCH (08:08)
[2017-02-06] MEDS: FLUOXETINE HCL 20 MG CAP PO SCH (08:08)
[2017-02-06] MEDS: OXYCODONE HCL IR 5 MG TAB (IMMEDIATE RELEASE) PO SCH ×4 (08:08→20:32)
--- NOTE | 2017-02-06 15:01 | Family Medicine Progress Note ---
Progress Note Date of Service Feb 06, 2017. Subjective Pt evaluation today including: conversation w/ patient, physical exam, chart review, lab review, review of studies Pain: Mild pain with deep inspiration Voiding: no voiding problems, no incontinence Patient is resting comfortably in bed this morning with no acute complaints overnight. She has been sleeping well and remains afebrile. The patient is still having discomfort with deep breaths but is trying to use the incentive spirometry as much as possible to improve her symptoms. She states she is now able to get out of bed and into her bedside chair without issue but is still short of breath when walking to the bathroom. Constitutional: No fever, No chills Respiratory: + cough, + sputum, + wheezing, + shortness of breath, + dyspnea on exertion, + dyspnea at rest Cardiovascular: No chest pain, No palpitations Abdomen: No pain, No nausea, No vomiting, No diarrhea, No constipation Female : No dysuria, No urinary frequency Medications Current Inpatient Medications Medications (Trade) Dose Ordered Sig/Miranda Route Start Time Stop Time Status Last Admin Dose Admin Acetaminophen (Tylenol Tab) 650 mg Q4H PRN PO 01/29/17 17:45 02/28/17 17:44 02/01/17 23:39 650 MG Al Hydrox/Mg Hydrox/Simethicone (Maalox Max Susp) 15 ml Q4H PRN PO 01/29/17 17:45 02/28/17 17:44 02/01/17 17:06 15 ML Magnesium Hydroxide (Milk Of Magnesia Susp) 30 ml Q6H PRN PO 01/29/17 17:45 02/28/17 17:44 Polyethylene (Miralax Powder Packet) 17 gm DAILY PRN PO 01/29/17 17:45 02/28/17 17:44 Ondansetron HCl (Zofran Inj) 4 mg Q6H PRN IV 01/29/17 17:45 02/28/17 17:44 Future hold 02/04/17 13:49 4 MG Zolpidem Tartrate (Ambien Tab) 5 mg HSZ PRN PO 01/29/17 17:45 02/28/17 17:44 02/05/17 21:31 5 MG Enoxaparin Sodium (Lovenox Inj) 40 mg QAM SQ 01/30/17 09:00 03/01/17 08:59 02/06/17 08:08 40 MG Amitriptyline HCl (Elavil Tab) 20 mg HS PO 01/29/17 21:00 02/28/17 20:59 02/05/17 21:25 20 MG Aspirin (Ecotrin Tab) 81 mg DAILY PO 01/29/17 18:30 02/28/17 18:29 02/06/17 08:08 81 MG Cholecalciferol (Vitamin D Tab) 2,000 inter.unit DAILY PO 01/30/17 09:00 03/01/17 08:59 02/06/17 08:08 2,000 INTER.UNIT Gabapentin (Neurontin Cap) 900 mg TID PO 01/29/17 21:00 02/28/17 20:59 02/06/17 12:30 900 MG Lisinopril (Zestril Tab) 40 mg QAM PO 01/30/17 09:00 03/01/17 08:59 Future Hold 01/31/17 09:23 40 MG Metoprolol Tartrate (Lopressor Tab) 25 mg QAM PO 01/30/17 09:00 03/01/17 08:59 Future Hold Oxycodone HCl (Roxicodone Immediate Rel Tab) 5 mg QID PO 01/29/17 21:00 02/12/17 20:59 02/06/17 12:30 5 MG Prednisone (PredniSONE TAB) 10 mg DAILY PO 01/30/17 09:00 03/01/17 08:59 02/06/17 08:08 10 MG Cefepime HCl (Consult) 1 ea UD PRN N/A 01/31/17 08:00 03/02/17 07:59 Cefepime HCl 2000 mg/Dextrose 112.5 ml @ 225 mls/hr Q8H IV 01/31/17 08:00 02/07/17 07:59 02/06/17 08:07 225 MLS/HR Phenol (Chloraseptic 1.4% [place]) 1 sprays Q2H PRN MT 01/31/17 09:30 03/02/17 09:29 01/31/17 09:37 1 SPRAYS Fluoxetine HCl (Prozac Cap) 80 mg DAILY PO 02/01/17 09:00 03/03/17 08:59 02/06/17 08:08 80 MG Calcium Carbonate (Tums Chew Tab) 1,000 mg Q4H PRN PO 01/31/17 20:45 03/02/17 20:44 Pantoprazole Sodium (Protonix Tab) 40 mg QAM PRN PO 02/01/17 00:15 03/03/17 00:14 02/05/17 07:49 40 MG Albuterol Sulfate (Ventolin 0.083% 2.5MG/3ML Neb) 2.5 mg Q4RWA INH 02/02/17 20:00 03/04/17 19:59 02/06/17 11:17 2.5 MG Hydrocortisone Sodium Succinate 100 mg/Syringe 2 ml @ 4 mls/min Q8 IV 02/03/17 22:00 03/05/17 21:59 02/06/17 12:30 4 MLS/MIN Menthol (Nice Saadia) 1 saadia PRN PRN PO 02/04/17 07:00 03/06/17 06:59 Levofloxacin (Levaquin Tab) 750 mg DAILY@1600 PO 02/04/17 16:00 02/12/17 23:59 02/05/17 16:11 750 MG Objective Vital Signs Date Time Temp Pulse Resp B/P (MAP) Pulse Ox O2 Delivery O2 Flow Rate FiO2 02/06/17 11:37 87 111/74 (86) 02/06/17 11:17 72 20 97 Nasal Cannula 45.0 60 02/06/17 08:00 93 Nasal Cannula 45.0 65 02/06/17 07:52 37.1 65 18 174/95 (121) 93 02/06/17 07:25 74 20 94 Nasal Cannula 45.0 65 02/06/17 00:00 100 High Flow Oxygen 45.0 75 02/05/17 23:05 36.4 69 16 150/91 (110) 93 High Flow Oxygen 02/05/17 19:40 63 20 100 Nasal Cannula 45.0 75 02/05/17 16:00 95 High Flow Oxygen 45.0 75 Humidified Oxygen 02/05/17 15:40 66 20 94 Nasal Cannula 45.0 75 02/05/17 14:59 37.0 62 18 154/92 (112) 92 High Flow Oxygen Physical Exam General Appearance: WD/WN, no apparent distress, + pertinent finding (resting comfortably in bedside chair with high flow nasal cannula on. 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 The patient was diagnosed with mycoplasma pneumonia after IgM antibodies returned positive, and is currently on day 8 of IV Levaquin and day 6 of IV cefepime treatment. The patient gradually improving on antibiotic therapy, although she is still on high flow oxygen at this time. As per ID she will need a total of 14 days of IV antibiotics and most likely require oxygen thereafter. The patient is currently also on IV steroids as per rheumatology. The patient is currently on MedSur and also seeing physical therapy. 1) Atypical Pneumonia - Shortness of breath improving and patient now able to move into bedside chair although still short of breath with moving to the bathroom - Although patient appears to be improving, her progress has been slow due to the severity of her infection related to her immunocompromised status - As per ID will remain on Levaquin for a total of 14 days, in addition to steroid therapy - Mycoplasma IgM 778 = low positive - CXR: Multifocal patchy opacities most concerning for multifocal pneumonia - Levaquin IV Day 8 - Cefepime IV Day 6 - Stress steroid dosing- 50 mg hydrocortisone every 8 hours - Duo nebs every 4 hours - High flow nasal cannula - Incentive spirometry 2) 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 lupus - Off of CellCept for 1 week - Continue home prednisone 10 mg - 50 mg hydrocortisone every 8 hours - Rheumatology consult 3) Hypotension - Patient blood pressure appears to be fluctuating although for the most part has been within normal limits - Continue to monitor blood pressures and if they remain high, will restart home hypertensive medications 4) History of SVT - Metoprolol 5) Home Medications - Prozac - Amitryptiline - Gabapentin - Oxycodone - Aspirin - Ambien 6) Physical Therapy - PT/OT eval and treat 7) DVT prophylaxis - Lovenox 40 mg 8) CODE STATUS - Full resuscitation 9) Disposition - Move to Med/Surg Resident Physician Supervision Note: I examined the patient. Discussed with Dr. Goodwin and agree with findings and plan as documented in the note. Any exceptions or clarifications are listed here : None Documented By: Kayden Lauren went to see pt twice - once w Dr Goodwin, she was sleeping comfortably, later went to revisit, she was on the phone. when sleeping appearing comfortable and NAD, pulse ox mid to high 90's no accessory muscles no labored respiration. severe hypoxia due to mycoplasma +/- gram negative pneumonia w sepsis on admission - improving slowly, ongoing supportive care Resident Tracking Resident Involvement: Resident Care Provided Care Provided: Adult Hospital Medicine
[2017-02-06] MEDS: LEVOFLOXACIN 750 MG TAB PO SCH (16:10)
[2017-02-06] MEDS ORDERED: NURSING DECISION MEDICATION ORDER SCH (16:45)
[2017-02-06] MEDS ORDERED: ARTIFICIAL TEARS OP SOLN OP PRN ×2 (17:00)
[2017-02-06] MEDS: AMITRIPTYLINE HCL 10 MG TAB PO SCH (20:32)
[2017-02-06] MEDS: ZOLPIDEM TARTRATE 5 MG TAB PO PRN (22:03)
[2017-02-07] VITALS (10 sets, daily range): BP systolic 128–147; BP diastolic 81–91; PULSE 60–73; TEMP 36.8; O2SAT 93–98
[2017-02-07] MEDS: HYDROCORTISONE IV 100 MG in SYRINGE 0 ML IV SCH ×2 (05:58→13:14)
[2017-02-07] MEDS: ALBUTEROL 0.083% NEBU SOLN 3 ML VIAL INH SCH ×4 (07:17→19:40)
[2017-02-07] MEDS: ENOXAPARIN 40 MG/0.4 ML SYR SQ SCH (07:48)
[2017-02-07] MEDS: OXYCODONE HCL IR 5 MG TAB (IMMEDIATE RELEASE) PO SCH ×4 (07:48→21:04)
[2017-02-07] MEDS: CHOLECALCIFEROL 1000 INTER.UNIT TAB PO SCH (07:49)
[2017-02-07] MEDS: GABAPENTIN 300 MG CAP PO SCH ×3 (07:49→21:02)
[2017-02-07] MEDS: ASPIRIN 81 MG ECTAB PO SCH (07:49)
[2017-02-07] MEDS: FLUOXETINE HCL 20 MG CAP PO SCH (07:49)
[2017-02-07 07:54] LABS: HEMATOCRIT 32.4 % (37-47); MEAN CELL VOLUME 84.8 fL (80-100); MEAN CORPUSCULAR HEMOGLOBIN 28.3 pg (25-34); MEAN CORPUSCULAR HGB CONC 33.3 g/dl (32-36); MEAN PLATELET VOLUME 9.3 fL (7.4-10.4); PLATELET COUNT 345 K/uL (130-400); RED BLOOD COUNT 3.82 M/uL (4.2-5.4); WHITE BLOOD COUNT 11.41 K/uL (4.8-10.8)
[2017-02-07 08:25] LABS: CREATININE 0.65 mg/dl (0.60-1.20)
--- NOTE | 2017-02-07 11:10 | Family Medicine Progress Note ---
Progress Note Date of Service Feb 07, 2017. Subjective Pt evaluation today including: conversation w/ patient, physical exam, chart review, lab review, review of studies Pain: No pain reported this morning Voiding: no voiding problems, no incontinence Patient is resting comfortably in bed this morning with no acute complaints overnight. She states that she is feeling less short of breath and has been working harder to improve her activity tolerance. She is now reaching 500-750cc on the incentive spirometer and is not having worsening shortness of breath. Her goal today is to be able to get up and move to the bathroom with getting short of breath. Constitutional: No fever, No chills Respiratory: + cough, + shortness of breath, + dyspnea on exertion, No sputum, No wheezing Cardiovascular: No chest pain, No palpitations Abdomen: No pain, No nausea, No vomiting, No diarrhea, No constipation Female : No dysuria Medications Current Inpatient Medications Medications (Trade) Dose Ordered Sig/Miranda Route Start Time Stop Time Status Last Admin Dose Admin Acetaminophen (Tylenol Tab) 650 mg Q4H PRN PO 01/29/17 17:45 02/28/17 17:44 02/01/17 23:39 650 MG Al Hydrox/Mg Hydrox/Simethicone (Maalox Max Susp) 15 ml Q4H PRN PO 01/29/17 17:45 02/28/17 17:44 02/01/17 17:06 15 ML Magnesium Hydroxide (Milk Of Magnesia Susp) 30 ml Q6H PRN PO 01/29/17 17:45 02/28/17 17:44 Polyethylene (Miralax Powder Packet) 17 gm DAILY PRN PO 01/29/17 17:45 02/28/17 17:44 Ondansetron HCl (Zofran Inj) 4 mg Q6H PRN IV 01/29/17 17:45 02/28/17 17:44 Future hold 02/04/17 13:49 4 MG Zolpidem Tartrate (Ambien Tab) 5 mg HSZ PRN PO 01/29/17 17:45 02/28/17 17:44 02/06/17 22:03 5 MG Enoxaparin Sodium (Lovenox Inj) 40 mg QAM SQ 01/30/17 09:00 03/01/17 08:59 02/07/17 07:48 40 MG Amitriptyline HCl (Elavil Tab) 20 mg HS PO 01/29/17 21:00 02/28/17 20:59 02/06/17 20:32 20 MG Aspirin (Ecotrin Tab) 81 mg DAILY PO 01/29/17 18:30 02/28/17 18:29 02/07/17 07:49 81 MG Cholecalciferol (Vitamin D Tab) 2,000 inter.unit DAILY PO 01/30/17 09:00 03/01/17 08:59 02/07/17 07:49 2,000 INTER.UNIT Gabapentin (Neurontin Cap) 900 mg TID PO 01/29/17 21:00 02/28/17 20:59 02/07/17 07:49 900 MG Lisinopril (Zestril Tab) 40 mg QAM PO 01/30/17 09:00 03/01/17 08:59 Future Hold 01/31/17 09:23 40 MG Metoprolol Tartrate (Lopressor Tab) 25 mg QAM PO 01/30/17 09:00 03/01/17 08:59 Future Hold Oxycodone HCl (Roxicodone Immediate Rel Tab) 5 mg QID PO 01/29/17 21:00 02/12/17 20:59 02/07/17 07:48 5 MG Prednisone (PredniSONE TAB) 10 mg DAILY PO 01/30/17 09:00 03/01/17 08:59 02/07/17 07:49 10 MG Cefepime HCl (Consult) 1 ea UD PRN N/A 01/31/17 08:00 03/02/17 07:59 Phenol (Chloraseptic 1.4% [place]) 1 sprays Q2H PRN MT 01/31/17 09:30 03/02/17 09:29 01/31/17 09:37 1 SPRAYS Fluoxetine HCl (Prozac Cap) 80 mg DAILY PO 02/01/17 09:00 03/03/17 08:59 02/07/17 07:49 80 MG Calcium Carbonate (Tums Chew Tab) 1,000 mg Q4H PRN PO 01/31/17 20:45 03/02/17 20:44 Pantoprazole Sodium (Protonix Tab) 40 mg QAM PRN PO 02/01/17 00:15 03/03/17 00:14 02/05/17 07:49 40 MG Albuterol Sulfate (Ventolin 0.083% 2.5MG/3ML Neb) 2.5 mg Q4RWA INH 02/02/17 20:00 03/04/17 19:59 02/07/17 07:17 2.5 MG Hydrocortisone Sodium Succinate 100 mg/Syringe 2 ml @ 4 mls/min Q8 IV 02/03/17 22:00 03/05/17 21:59 02/07/17 05:58 4 MLS/MIN Menthol (Nice Saadia) 1 saadia PRN PRN PO 02/04/17 07:00 03/06/17 06:59 Levofloxacin (Levaquin Tab) 750 mg DAILY@1600 PO 02/04/17 16:00 02/12/17 23:59 02/06/17 16:10 750 MG Artificial Tears (Artificial Tears) 1 drops DIRECTED PRN OP 02/06/17 17:00 03/08/17 16:59 Objective Vital Signs Date Time Temp Pulse Resp B/P (MAP) Pulse Ox O2 Delivery O2 Flow Rate FiO2 02/07/17 08:00 96 Nasal Cannula 45.0 45 02/07/17 07:18 66 20 96 Nasal Cannula 45.0 45 02/07/17 07:15 36.8 60 18 128/81 (97) 96 High Flow Oxygen 02/07/17 01:46 95 Nasal Cannula 45.0 50 02/06/17 23:15 37.0 62 20 156/74 (101) 94 BiPAP 02/06/17 19:21 64 20 94 Nasal Cannula 45.0 50 02/06/17 16:07 36.5 69 18 152/83 (106) 92 Room Air 02/06/17 16:00 95 Nasal Cannula 45.0 50 02/06/17 15:24 61 20 95 Nasal Cannula 45.0 50 02/06/17 11:37 87 111/74 (86) 02/06/17 11:17 72 20 97 Nasal Cannula 45.0 60 Physical Exam General Appearance: WD/WN, no apparent distress Eyes: normal inspection, sclerae normal Respiratory/Chest: chest non-tender, + decreased breath sounds Cardiovascular: regular rate, rhythm, no edema, no gallop Abdomen: normal bowel sounds, non tender, soft Neurologic/Psychiatric: alert, normal mood/affect, oriented x 3 Laboratory Results Results Past 24 Hours Test 02/07/17 07:26 Range/Units White Blood Count 11.41 4.8-10.8 K/uL Red Blood Count 3.82 4.2-5.4 M/uL Hemoglobin 10.8 12.0-16.0 g/dL Hematocrit 32.4 37-47 % Mean Corpuscular Volume 84.8 80-100 fL Mean Corpuscular Hemoglobin 28.3 25-34 pg Mean Corpuscular Hemoglobin Concent 33.3 32-36 g/dl RDW Standard Deviation 40.6 36.4-46.3 fL RDW Coefficient of Variation 13.1 11.5-14.5 % Platelet Count 345 130-400 K/uL Mean Platelet Volume 9.3 7.4-10.4 fL Creatinine 0.65 0.60-1.20 mg/dl Est Creatinine Clear Calc Drug Dose 107.1 ml/min Estimated GFR () 119.1 Estimated GFR (Non- 102.8 Assessment and Plan The patient is a 51-year-old female with a past medical history of Sjogren's disease, celiac disease, lupus, and Rinade's disease that presented with shortness of breath. The patient was diagnosed with mycoplasma pneumonia after IgM antibodies returned positive, and is currently on day 9 of IV Levaquin and day 7 of IV cefepime treatment. The patient gradually improving on antibiotic therapy, although she is still on high flow oxygen at this time. As per ID she will need a total of 14 days of IV antibiotics and most likely require oxygen thereafter. The patient is currently on Med/Surg and looking exceedingly well, being now moved to a high flow oxygen mask with an estimated FiO2 of 37 ( previously was on high flow NC with FiO2 of 43, and yesterday 75). We will also transition the patient to prednisone from IV Solumedrol. We will also stop Cefepime today. Patient will most likely need oxygen at discharge so that will have to be arranged with case management. 1) Acute Hypoxic Respiratory Failure 2/2 Mycoplasma Pneumonia - Patient required BiPAP and High Flow Nasal Cannula due to hypoxia. Currently improving and downgraded to a high flow oxygen mask. - Shortness of breath improving and patient now able to move into bedside chair although still short of breath with moving to the bathroom - Although patient appears to be improving, her progress has been slow due to the severity of her infection related to her immunocompromised status - As per ID will remain on Levaquin for a total of 14 days, in addition to steroid therapy - Mycoplasma IgM 778 = low positive - CXR: Multifocal patchy opacities most concerning for multifocal pneumonia - Levaquin IV Day 9 - STOPPED Cefepime IV on 02/07 - Received 7 days total - Transition to Prednisone 30mg tomorrow - Previously received stress steroid dosing- 100 mg hydrocortisone every 8 hours - Last Dose 02/07/17 - Duo nebs every 4 hours - Incentive spirometry 2) 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 lupus - Transition to Prednisone taper tomorrow - 30mg x 2 days, 20mg x 2 days, then back to home prednisone 10mg - Off of CellCept for last 2 weekwithin - Home prednisone dose of 10 mg - 100 mg hydrocortisone every 8 hours - last dose this afternoon - Rheumatology consult 3) Hypotension - Blood pressure now stable - Consider resuming home medications on discharge if blood pressure remains normotensive 4) History of SVT - Metoprolol 5) Home Medications - Prozac - Amitryptiline - Gabapentin - Oxycodone - Aspirin - Ambien 6) Physical Therapy - PT/OT eval and treat 7) DVT prophylaxis - Lovenox 40 mg 8) CODE STATUS - Full resuscitation 9) Disposition - Plan on discharging home with home oxygen when stable - 14 day total treatment with PO Levaquin Resident Physician Supervision Note: I interviewed and examined the patient. Discussed with [Donn] and agree with findings and plan as documented in the note. Any exceptions or clarifications are listed here: [None] Documented By: Kayden Lauren feeling better each day, less VALENZUELA and able to do more without having to rest. weaning FiO2 vitals noted nad breathing unlabored no pallor or icterus atypical (mycoplasma) +/- superimposed CAP w sepsis on admission, severe hypoxic respiratory failure due to immunocompromised state (autoimmune disease and immunosuppressant meds) - doing better. stop cefepime, transition to PO steroids, conitnue to wean O2. doing well w PT likely won't need rehab unless strength worsens, jackie will need home O2 for short term, anticipate home when stable on ~2-4L NC O2 (still needing too high FiO2 for this, but getting closer) Resident Tracking Resident Involvement: Resident Care Provided Care Provided: Adult Hospital Medicine
[2017-02-07] MEDS: LEVOFLOXACIN 750 MG TAB PO SCH (15:25)
[2017-02-07] MEDS: POLYETHYLENE (MIRALAX) 17 GM PACK PO PRN (20:14)
[2017-02-07] MEDS: ZOLPIDEM TARTRATE 5 MG TAB PO PRN (21:02)
[2017-02-07] MEDS: AMITRIPTYLINE HCL 10 MG TAB PO SCH (21:02)
[2017-02-08] VITALS (11 sets, daily range): BP systolic 113–136; BP diastolic 71–86; PULSE 60–71; TEMP 36.7–36.9; O2SAT 92–96
[2017-02-08] MEDS: ALBUTEROL 0.083% NEBU SOLN 3 ML VIAL INH SCH ×4 (07:23→18:19)
[2017-02-08 07:50] LABS: HEMATOCRIT 33.3 % (37-47); MEAN CELL VOLUME 85.4 fL (80-100); MEAN CORPUSCULAR HEMOGLOBIN 28.2 pg (25-34); MEAN PLATELET VOLUME 9.3 fL (7.4-10.4); PLATELET COUNT 375 K/uL (130-400); WHITE BLOOD COUNT 13.46 K/uL (4.8-10.8)
[2017-02-08] MEDS: GABAPENTIN 300 MG CAP PO SCH ×3 (08:17→21:09)
[2017-02-08] MEDS: OXYCODONE HCL IR 5 MG TAB (IMMEDIATE RELEASE) PO SCH ×4 (08:18→21:12)
[2017-02-08] MEDS: FLUOXETINE HCL 20 MG CAP PO SCH (08:18)
[2017-02-08] MEDS: CHOLECALCIFEROL 1000 INTER.UNIT TAB PO SCH (08:19)
[2017-02-08] MEDS: ENOXAPARIN 40 MG/0.4 ML SYR SQ SCH (08:19)
[2017-02-08 08:20] LABS: BUN/CREATININE RATIO 14.8 (10-20); CALCIUM 8.8 mg/dl (8.5-10.1); CREATININE 0.69 mg/dl (0.60-1.20); MAGNESIUM 2.5 mg/dl (1.8-2.4); POTASSIUM 2.7 mmol/L (3.5-5.1)
[2017-02-08] MEDS ORDERED: POTASSIUM CHLORIDE 10 MEQ TABCR PO STA (09:59)
--- NOTE | 2017-02-08 10:44 | Infectious Disease Progress Nt ---
Progress Note Date of Service Feb 08, 2017. Subjective Pt evaluation today including: conversation w/ patient, physical exam, chart review, lab review, review of studies, conversation w/ marine engineering consultant, review of inpatient medication list Improving daily. Less SOB. Still with VALENZUELA. No fever. No other new complaints. All Other Systems: Reviewed and Negative Medications Current Inpatient Medications Medications (Trade) Dose Ordered Sig/Miranda Route Start Time Stop Time Status Last Admin Dose Admin Acetaminophen (Tylenol Tab) 650 mg Q4H PRN PO 01/29/17 17:45 02/28/17 17:44 02/01/17 23:39 650 MG Al Hydrox/Mg Hydrox/Simethicone (Maalox Max Susp) 15 ml Q4H PRN PO 01/29/17 17:45 02/28/17 17:44 02/01/17 17:06 15 ML Magnesium Hydroxide (Milk Of Magnesia Susp) 30 ml Q6H PRN PO 01/29/17 17:45 02/28/17 17:44 Polyethylene (Miralax Powder Packet) 17 gm DAILY PRN PO 01/29/17 17:45 02/28/17 17:44 02/07/17 20:14 17 GM Ondansetron HCl (Zofran Inj) 4 mg Q6H PRN IV 01/29/17 17:45 02/28/17 17:44 Future hold 02/04/17 13:49 4 MG Zolpidem Tartrate (Ambien Tab) 5 mg HSZ PRN PO 01/29/17 17:45 02/28/17 17:44 02/07/17 21:02 5 MG Enoxaparin Sodium (Lovenox Inj) 40 mg QAM SQ 01/30/17 09:00 03/01/17 08:59 02/08/17 08:19 40 MG Amitriptyline HCl (Elavil Tab) 20 mg HS PO 01/29/17 21:00 02/28/17 20:59 02/07/17 21:02 20 MG Aspirin (Ecotrin Tab) 81 mg DAILY PO 01/29/17 18:30 02/28/17 18:29 02/07/17 07:49 81 MG Cholecalciferol (Vitamin D Tab) 2,000 inter.unit DAILY PO 01/30/17 09:00 03/01/17 08:59 02/08/17 08:19 2,000 INTER.UNIT Gabapentin (Neurontin Cap) 900 mg TID PO 01/29/17 21:00 02/28/17 20:59 02/08/17 08:17 900 MG Lisinopril (Zestril Tab) 40 mg QAM PO 01/30/17 09:00 03/01/17 08:59 Future Hold 01/31/17 09:23 40 MG Metoprolol Tartrate (Lopressor Tab) 25 mg QAM PO 01/30/17 09:00 03/01/17 08:59 Future Hold Oxycodone HCl (Roxicodone Immediate Rel Tab) 5 mg QID PO 01/29/17 21:00 02/12/17 20:59 02/08/17 08:18 5 MG Phenol (Chloraseptic 1.4% [place]) 1 sprays Q2H PRN MT 01/31/17 09:30 03/02/17 09:29 01/31/17 09:37 1 SPRAYS Fluoxetine HCl (Prozac Cap) 80 mg DAILY PO 02/01/17 09:00 03/03/17 08:59 02/08/17 08:18 80 MG Calcium Carbonate (Tums Chew Tab) 1,000 mg Q4H PRN PO 01/31/17 20:45 03/02/17 20:44 Pantoprazole Sodium (Protonix Tab) 40 mg QAM PRN PO 02/01/17 00:15 03/03/17 00:14 02/05/17 07:49 40 MG Albuterol Sulfate (Ventolin 0.083% 2.5MG/3ML Neb) 2.5 mg Q4RWA INH 02/02/17 20:00 03/04/17 19:59 02/08/17 07:23 2.5 MG Menthol (Nice Saadia) 1 saadia PRN PRN PO 02/04/17 07:00 03/06/17 06:59 Levofloxacin (Levaquin Tab) 750 mg DAILY@1600 PO 02/04/17 16:00 02/12/17 23:59 02/07/17 15:25 750 MG Artificial Tears (Artificial Tears) 1 drops DIRECTED PRN OP 02/06/17 17:00 03/08/17 16:59 Prednisone (PredniSONE TAB) 30 mg QAM PO 02/08/17 09:00 82/17 09:01 02/08/17 08:18 30 MG Potassium Chloride (Klor-Con Tab) 20 meq QPM ONCE PO 02/08/17 21:00 02/08/17 21:01 Objective Vital Signs Date Time Temp Pulse Resp B/P (MAP) Pulse Ox O2 Delivery O2 Flow Rate FiO2 02/08/17 10:33 Nasal Cannula 3.0 02/08/17 07:24 70 18 96 Mask 3.0 02/08/17 07:20 36.8 65 18 136/76 (96) 94 02/08/17 00:13 36.9 71 18 113/71 (85) 92 Oxymask 5.0 02/07/17 23:45 Oxymask 5.0 Humidified Air 02/07/17 19:41 66 18 93 Mask 6.0 02/07/17 16:13 73 18 96 Mask 6.0 02/07/17 16:00 94 Mask 6.0 45 02/07/17 15:25 36.8 65 18 147/91 (109) 94 Mask 6.0 02/07/17 13:14 98 02/07/17 11:38 62 20 96 Nasal Cannula 7.0 Physical Exam General Appearance: WD/WN, no apparent distress Eyes: normal inspection, sclerae normal ENT: normal ENT inspection, pharynx normal Neck: supple, no adenopathy, thyroid normal, trachea midline Respiratory/Chest: chest non-tender, no respiratory distress, no accessory muscle use, + rales Cardiovascular: regular rate, rhythm, no gallop, no murmur Abdomen: normal bowel sounds, non tender, soft, no organomegaly Extremities: non-tender, no calf tenderness Neurologic/Psychiatric: alert, normal mood/affect, oriented x 3 Skin: normal color, warm/dry, no rash Lymphatic: no adenopathy Laboratory Results Last 24 Hours Test 02/08/17 07:10 White Blood Count 13.46 K/uL Red Blood Count 3.90 M/uL Hemoglobin 11.0 g/dL Hematocrit 33.3 % Mean Corpuscular Volume 85.4 fL Mean Corpuscular Hemoglobin 28.2 pg Mean Corpuscular Hemoglobin Concent 33.0 g/dl RDW Standard Deviation 40.8 fL RDW Coefficient of Variation 13.3 % Platelet Count 375 K/uL Mean Platelet Volume 9.3 fL Nucleated RBC Absolute Count (auto) 0.03 K/uL Nucleated Red Blood Cells % 0.3 % Sodium Level 140 mmol/L Potassium Level 2.7 mmol/L Chloride Level 102 mmol/L Carbon Dioxide Level 30 mmol/L Anion Gap 8.0 mmol/L Blood Urea Nitrogen 10 mg/dl Creatinine 0.69 mg/dl Est Creatinine Clear Calc Drug Dose 100.9 ml/min Estimated GFR () 116.8 Estimated GFR (Non- 100.8 BUN/Creatinine Ratio 14.8 Random Glucose 69 mg/dl Calcium Level 8.8 mg/dl Magnesium Level 2.5 mg/dl Assessment and Plan 51-year-old female with significant autoimmune disease on immunosuppressive therapy now presents with diffuse pneumonitis. X-ray findings more consistent with atypical process. Now with minimally positive IgM for mycoplasma. Given clinical improvement, patient should continue on Levofloxacin to complete 14 days of therapy. Would obtain convalescent mycoplasma serologies in several weeks to confirm diagnosis. We will continue to follow.
[2017-02-08] MEDS: ACETAMINOPHEN 325 MG TAB PO PRN (10:49)
[2017-02-08] MEDS: ASPIRIN 81 MG ECTAB PO SCH (12:00)
[2017-02-08] MEDS: LEVOFLOXACIN 750 MG TAB PO SCH (15:35)
--- NOTE | 2017-02-08 17:10 | Family Medicine Progress Note ---
Progress Note Date of Service Feb 08, 2017. Subjective Pt evaluation today including: conversation w/ patient Constitutional: No fever, No chills, No sweats Respiratory: No cough, No sputum, No wheezing, No shortness of breath Abdomen: No pain, No nausea, No vomiting, No diarrhea Female : No dysuria Skin: No rash Objective Physical Exam General Appearance: WD/WN, no apparent distress Eyes: PERRL Neck: supple, no adenopathy, thyroid normal, no JVD Respiratory/Chest: chest non-tender, lungs clear, normal breath sounds, no respiratory distress, no accessory muscle use Cardiovascular: regular rate, rhythm, no edema, no gallop, no JVD, no murmur Abdomen: normal bowel sounds, non tender, soft, no organomegaly, no pulsatile mass Extremities: normal range of motion, non-tender Neurologic/Psychiatric: alert, normal mood/affect, oriented x 3 Assessment and Plan 51F with a past medical history of Sjogren's disease, celiac disease, lupus, and Raynoud's disease that presented with shortness of breath. The patient was diagnosed with mycoplasma pneumonia after IgM antibodies returned positive, and is currently on a 14 day course of Levaquin s/p 7 days of additional Cefepime. Pt is improving and we anticipate discharge on home oxygen. We will also transition the patient to prednisone from IV Solumedrol. Acute Hypoxic Respiratory Failure 2/2 Mycoplasma Pneumonia - Patient required BiPAP and High Flow Nasal Cannula due to hypoxia. Currently improving and downgraded now from high flow oxygen mask to Nasal cannula. - Shortness of breath improving and patient now able to move into bedside chair although still short of breath with moving to the bathroom - Mycoplasma IgM 778 = low positive - CXR: Multifocal patchy opacities most concerning for multifocal pneumonia - As per ID, needs 14 days of Levoquin, - s/p 7 days of Cefepime IV and Solu Cortef 100mg Q8H - Albuterol Q4H while awake. - Incentive spirometry - PT and OT on board. - Continue Levaquin IV Day 10 - Continue Prednisone 30mg x 2 days, 20mg x 7 days then home dose of 10mg daily. 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 Duarte) - will try to move up hospital follow up from March. History of SVT - will resume metoprolol 25mg daily. Hypokalemia: K+ was 2.7 today, replete as necessary. Pain (Home Meds): * Tylenol 650mg PO PRN * continue Oxycodone 5mg Q4H PRN for pain, pt typically gets 4 doses per day. * continue Neurontin 900mg TID schedule Depression: * Prozac 80mg daily * continue Amitriptyline 20mg QHS Sleep disturbance: Zolpidem 5mg PRN insomnia Home Meds: * ASA 81mg daily * Vit D 2000 IU daily DVT Proph: Lovenox 40 mg Dispo - Med Surge, possibly will need O2 on discharge. FULL CODE Resident Involvement: Resident Care Provided Care Provided: Adult Hospital Medicine Reviewed: Pt Seen/Exam by Me History significant improvement in breathing Constitutional: denies: fever Cardiovascular: denies chest pain Gastrointestinal/Abdominal: negative: abdominal pain General Appearance: other (comfortably sitting at the edge of bed) Respiratory: lungs clear, no respiratory distress Cardiovascular: regular rate, rhythm Gastrointestinal: soft Neurologic/Psychiatric: alert, oriented x 3 Skin Characteristics: warm/dry Assessment/Plan Resident Physician Supervision Note: I was present with Dr. Cardoso in bedside. I verified the hatch history and physical, reviewed labs and image studies, discussed the case with the resident and agree with the findings and care plan.
[2017-02-08] MEDS ORDERED: POTASSIUM CHLORIDE 20 MEQ TABCR PO ONE (21:00)
[2017-02-08] MEDS: AMITRIPTYLINE HCL 10 MG TAB PO SCH (21:10)
[2017-02-08] MEDS: ZOLPIDEM TARTRATE 5 MG TAB PO PRN (21:47)
[2017-02-09] VITALS (9 sets, daily range): BP systolic 113–155; BP diastolic 74–96; PULSE 60–74; TEMP 36.3–36.9; O2SAT 94–98
[2017-02-09 07:22] LABS: HEMATOCRIT 31.4 % (37-47); MEAN CELL VOLUME 85.8 fL (80-100); MEAN CORPUSCULAR HEMOGLOBIN 29.5 pg (25-34); MEAN CORPUSCULAR HGB CONC 34.4 g/dl (32-36); MEAN PLATELET VOLUME 9.2 fL (7.4-10.4); PLATELET COUNT 328 K/uL (130-400); RED BLOOD COUNT 3.66 M/uL (4.2-5.4); WHITE BLOOD COUNT 10.34 K/uL (4.8-10.8)
[2017-02-09] MEDS: ALBUTEROL 0.083% NEBU SOLN 3 ML VIAL INH SCH ×4 (07:41→19:24)
[2017-02-09 07:50] LABS: BUN/CREATININE RATIO 15.1 (10-20); CALCIUM 8.4 mg/dl (8.5-10.1); CREATININE 0.59 mg/dl (0.60-1.20); MAGNESIUM 2.4 mg/dl (1.8-2.4); POTASSIUM 3.8 mmol/L (3.5-5.1)
[2017-02-09] MEDS: ASPIRIN 81 MG ECTAB PO SCH (08:13)
[2017-02-09] MEDS: GABAPENTIN 300 MG CAP PO SCH ×3 (08:14→21:10)
[2017-02-09] MEDS: FLUOXETINE HCL 20 MG CAP PO SCH (08:15)
[2017-02-09] MEDS: CHOLECALCIFEROL 1000 INTER.UNIT TAB PO SCH (08:15)
[2017-02-09] MEDS: OXYCODONE HCL IR 5 MG TAB (IMMEDIATE RELEASE) PO SCH ×4 (08:15→21:11)
[2017-02-09] MEDS: ENOXAPARIN 40 MG/0.4 ML SYR SQ SCH (08:16)
--- NOTE | 2017-02-09 09:56 | Infectious Disease Progress Nt ---
Progress Note Date of Service Feb 09, 2017. Subjective Pt evaluation today including: conversation w/ patient, physical exam, chart review, lab review, review of studies, conversation w/ systems consultant, review of inpatient medication list Patient continues to improve, decrease in shortness of breath, improvement in activity tolerance. No fever. Tolerating antibiotics without apparent difficulty. All Other Systems: Reviewed and Negative Medications Current Inpatient Medications Medications (Trade) Dose Ordered Sig/Miranda Route Start Time Stop Time Status Last Admin Dose Admin Acetaminophen (Tylenol Tab) 650 mg Q4H PRN PO 01/29/17 17:45 02/28/17 17:44 02/08/17 10:49 650 MG Al Hydrox/Mg Hydrox/Simethicone (Maalox Max Susp) 15 ml Q4H PRN PO 01/29/17 17:45 02/28/17 17:44 02/01/17 17:06 15 ML Magnesium Hydroxide (Milk Of Magnesia Susp) 30 ml Q6H PRN PO 01/29/17 17:45 02/28/17 17:44 Polyethylene (Miralax Powder Packet) 17 gm DAILY PRN PO 01/29/17 17:45 02/28/17 17:44 02/07/17 20:14 17 GM Ondansetron HCl (Zofran Inj) 4 mg Q6H PRN IV 01/29/17 17:45 02/28/17 17:44 Future hold 02/04/17 13:49 4 MG Zolpidem Tartrate (Ambien Tab) 5 mg HSZ PRN PO 01/29/17 17:45 02/28/17 17:44 02/08/17 21:47 5 MG Enoxaparin Sodium (Lovenox Inj) 40 mg QAM SQ 01/30/17 09:00 03/01/17 08:59 02/09/17 08:16 40 MG Amitriptyline HCl (Elavil Tab) 20 mg HS PO 01/29/17 21:00 02/28/17 20:59 02/08/17 21:10 20 MG Aspirin (Ecotrin Tab) 81 mg DAILY PO 01/29/17 18:30 02/28/17 18:29 02/09/17 08:13 81 MG Cholecalciferol (Vitamin D Tab) 2,000 inter.unit DAILY PO 01/30/17 09:00 03/01/17 08:59 02/09/17 08:15 2,000 INTER.UNIT Gabapentin (Neurontin Cap) 900 mg TID PO 01/29/17 21:00 02/28/17 20:59 02/09/17 08:14 900 MG Lisinopril (Zestril Tab) 40 mg QAM PO 01/30/17 09:00 03/01/17 08:59 Future Hold 01/31/17 09:23 40 MG Metoprolol Tartrate (Lopressor Tab) 25 mg QAM PO 01/30/17 09:00 03/01/17 08:59 Future hold Oxycodone HCl (Roxicodone Immediate Rel Tab) 5 mg QID PO 01/29/17 21:00 02/12/17 20:59 02/09/17 08:15 5 MG Phenol (Chloraseptic 1.4% [place]) 1 sprays Q2H PRN MT 01/31/17 09:30 03/02/17 09:29 01/31/17 09:37 1 SPRAYS Fluoxetine HCl (Prozac Cap) 80 mg DAILY PO 02/01/17 09:00 03/03/17 08:59 02/09/17 08:15 80 MG Calcium Carbonate (Tums Chew Tab) 1,000 mg Q4H PRN PO 01/31/17 20:45 03/02/17 20:44 Pantoprazole Sodium (Protonix Tab) 40 mg QAM PRN PO 02/01/17 00:15 03/03/17 00:14 02/05/17 07:49 40 MG Albuterol Sulfate (Ventolin 0.083% 2.5MG/3ML Neb) 2.5 mg Q4RWA INH 02/02/17 20:00 03/04/17 19:59 02/09/17 07:41 2.5 MG Menthol (Nice Saadia) 1 saadia PRN PRN PO 02/04/17 07:00 03/06/17 06:59 Levofloxacin (Levaquin Tab) 750 mg DAILY@1600 PO 02/04/17 16:00 02/12/17 23:59 02/08/17 15:35 750 MG Artificial Tears (Artificial Tears) 1 drops DIRECTED PRN OP 02/06/17 17:00 03/08/17 16:59 Prednisone (PredniSONE TAB) 30 mg QAM PO 02/08/17 09:00 02/10/17 09:01 02/09/17 08:15 30 MG Objective Vital Signs Date Time Temp Pulse Resp B/P (MAP) Pulse Ox O2 Delivery O2 Flow Rate FiO2 02/09/17 07:41 64 18 98 Nasal Cannula 1.0 02/09/17 07:27 36.6 60 18 155/96 (115) 96 2.0 02/09/17 00:15 95 Nasal Cannula 2.0 Humidified Air 02/08/17 23:11 36.9 68 18 127/86 (100) 94 Nasal Cannula 1.0 02/08/17 18:19 60 18 95 Nasal Cannula 1.0 02/08/17 16:00 95 Nasal Cannula 3.0 02/08/17 15:28 36.7 68 16 133/78 (96) 95 2.0 02/08/17 15:27 64 18 96 Nasal Cannula 2.0 02/08/17 13:43 95 Nasal Cannula 3.0 02/08/17 11:20 70 18 94 Nasal Cannula 2.0 02/08/17 10:33 Nasal Cannula 3.0 02/08/17 10:20 96 Physical Exam General Appearance: WD/WN, no apparent distress Eyes: normal inspection, sclerae normal ENT: normal ENT inspection, pharynx normal Neck: supple, no adenopathy, thyroid normal, trachea midline Respiratory/Chest: chest non-tender, no respiratory distress, no accessory muscle use, + rales Cardiovascular: regular rate, rhythm, no gallop, no murmur Abdomen: normal bowel sounds, non tender, soft, no organomegaly Extremities: non-tender, no calf tenderness Neurologic/Psychiatric: alert, oriented x 3 Skin: normal color, warm/dry, no rash Lymphatic: no adenopathy Laboratory Results Last 24 Hours Test 02/09/17 06:55 White Blood Count 10.34 K/uL Red Blood Count 3.66 M/uL Hemoglobin 10.8 g/dL Hematocrit 31.4 % Mean Corpuscular Volume 85.8 fL Mean Corpuscular Hemoglobin 29.5 pg Mean Corpuscular Hemoglobin Concent 34.4 g/dl RDW Standard Deviation 42.4 fL RDW Coefficient of Variation 13.6 % Platelet Count 328 K/uL Mean Platelet Volume 9.2 fL Sodium Level 140 mmol/L Potassium Level 3.8 mmol/L Chloride Level 106 mmol/L Carbon Dioxide Level 31 mmol/L Anion Gap 3.0 mmol/L Blood Urea Nitrogen 9 mg/dl Creatinine 0.59 mg/dl Est Creatinine Clear Calc Drug Dose 118.0 ml/min Estimated GFR () 123.0 Estimated GFR (Non- 106.1 BUN/Creatinine Ratio 15.1 Random Glucose 65 mg/dl Calcium Level 8.4 mg/dl Magnesium Level 2.4 mg/dl Assessment and Plan 51-year-old female with significant autoimmune disease on immunosuppressive therapy now presents with diffuse pneumonitis. X-ray findings more consistent with atypical process. Now with minimally positive IgM for mycoplasma. Given clinical improvement, patient should continue on Levofloxacin to complete 14 days of therapy. Would obtain convalescent mycoplasma serologies in several weeks to confirm diagnosis. We will continue to follow.
[2017-02-09] MEDS: METOPROLOL TARTRATE 25 MG TAB PO SCH (10:56)
[2017-02-09] MEDS: POLYETHYLENE (MIRALAX) 17 GM PACK PO PRN (11:29)
--- NOTE | 2017-02-09 11:54 | Family Medicine Progress Note ---
Progress Note Date of Service Feb 09, 2017. Subjective Pt evaluation today including: conversation w/ patient The patient was seen and examined at bedside. No acute overnight events. Pt was weaned to 3LNC overnight. Has no acute complaints. Is complaining of abdominal pain secondary to insulin injections. *Update: Pt has been weaned to 1L NC at rest. Patient is resting comfortably in bed. Eating and urinating well. Plan of care was described to the patient and all questions were answered. ROS: Dyspnea on exertion. Constitutional: No fever, No chills, No sweats ENT: No hearing loss Respiratory: + cough, + wheezing, + dyspnea on exertion, No sputum, No shortness of breath Cardiovascular: No chest pain Abdomen: No pain, No nausea, No vomiting, No diarrhea, No constipation Musculoskeletal: No joint pain Objective Physical Exam General Appearance: WD/WN, no apparent distress Eyes: PERRL ENT: normal ENT inspection, hearing grossly normal, TMs normal Neck: supple Respiratory/Chest: chest non-tender, lungs clear, normal breath sounds, no respiratory distress, no accessory muscle use Cardiovascular: regular rate, rhythm, no edema, no gallop, no JVD, no murmur Abdomen: normal bowel sounds, non tender, soft, no organomegaly Extremities: non-tender, no pedal edema Neurologic/Psychiatric: alert, normal mood/affect, oriented x 3 Skin: + pertinent finding (red fingertips and toes, skin is very pale white - findings consistent with Raynouds. There are ecchymosis on the abdomen likely from insulin injections.) Assessment and Plan 51F with a past medical history of Sjogren's disease, celiac disease, lupus, and Raynaud's disease that presented with shortness of breath. The patient was diagnosed with mycoplasma pneumonia after IgM antibodies returned positive, and is currently on a 14 day course of Levaquin s/p 7 days of additional Cefepime. We will also transition the patient to prednisone with taper described below. Pt is improving and we anticipate discharge on home oxygen. Acute Hypoxic Respiratory Failure 2/2 Mycoplasma Pneumonia - Patient required BiPAP and High Flow Nasal Cannula due to hypoxia. Currently improving and downgraded now from high flow oxygen mask to Nasal cannula. - Shortness of breath improving and patient now able to move into bedside chair although still short of breath with moving to the bathroom - Mycoplasma IgM 778 = low positive - CXR: Multifocal patchy opacities most concerning for multifocal pneumonia - As per ID, needs 14 days of Levoquin, - s/p 7 days of Cefepime IV and Solu Cortef 100mg Q8H - Albuterol Q4H while awake. - Incentive spirometry - PT and OT on board. - Continue Levaquin PO Day 11 - Continue Prednisone 30mg x 2 days (last day at this dose), 20mg x 7 days then home dose of 10mg daily. - Per ID, recommend mycoplasma titres in a few weeks to confirm serology. 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 Duarte) - will try to move up hospital follow up from March. History of SVT - continue metoprolol 25mg daily. Hypokalemia: K+ was 3.8 today, monitor and replete PRN. Pain (Home Meds): * Tylenol 650mg PO PRN * continue Oxycodone 5mg Q4H PRN for pain, pt typically gets 4 doses per day. * continue Neurontin 900mg TID schedule Depression: * Prozac 80mg daily * continue Amitriptyline 20mg QHS Sleep disturbance: Zolpidem 5mg PRN insomnia Home Meds: * ASA 81mg daily * Vit D 2000 IU daily DVT Proph: Lovenox 40 mg Dispo - Med Surg, two step tomorrow to determine oxygen requirements. FULL CODE Resident Involvement: Resident Care Provided Care Provided: Adult Hospital Medicine Reviewed: Pt Seen/Exam by Me History breathing continues to be improving. was walking in the hallway earlier today Constitutional: denies: fever Respiratory: negative: short of breath Cardiovascular: denies chest pain General Appearance: no apparent distress Respiratory: lungs clear, no respiratory distress Cardiovascular: regular rate, rhythm Gastrointestinal: soft Neurologic/Psychiatric: alert, oriented x 3 Skin Characteristics: warm/dry Assessment/Plan Resident Physician Supervision Note: I was present with Dr. Cardoso in bedside. I verified the hatch history and physical, reviewed labs and image studies, discussed the case with the resident and agree with the findings and care plan.
[2017-02-09] MEDS ORDERED: LORAZEPAM 0.5 MG TAB PO PRN (14:45)
[2017-02-09] MEDS: LEVOFLOXACIN 750 MG TAB PO SCH (15:26)
[2017-02-09] MEDS: LORAZEPAM 0.5 MG TAB PO PRN ×2 (15:26→20:04)
[2017-02-09] MEDS: AMITRIPTYLINE HCL 10 MG TAB PO SCH (21:10)
[2017-02-09] MEDS: ZOLPIDEM TARTRATE 5 MG TAB PO PRN (21:11)
[2017-02-10] MEDS: ALBUTEROL 0.083% NEBU SOLN 3 ML VIAL INH SCH (07:16)
[2017-02-10 07:18] VITALS: PULSE 72; O2SAT 97
[2017-02-10 07:43] VITALS: BP 153/91; PULSE 79; TEMP 36.5; O2SAT 92
[2017-02-10] MEDS: ASPIRIN 81 MG ECTAB PO SCH (07:45)
[2017-02-10] MEDS: GABAPENTIN 300 MG CAP PO SCH ×2 (07:46→12:58)
[2017-02-10] MEDS: FLUOXETINE HCL 20 MG CAP PO SCH (07:46)
[2017-02-10] MEDS: ENOXAPARIN 40 MG/0.4 ML SYR SQ SCH (07:47)
[2017-02-10] MEDS: CHOLECALCIFEROL 1000 INTER.UNIT TAB PO SCH (07:47)
[2017-02-10] MEDS: OXYCODONE HCL IR 5 MG TAB (IMMEDIATE RELEASE) PO SCH ×2 (07:47→12:58)
[2017-02-10] MEDS: LORAZEPAM 0.5 MG TAB PO PRN (07:47)
[2017-02-10] MEDS: METOPROLOL TARTRATE 25 MG TAB PO SCH (07:48)
[2017-02-10 07:59] LABS: HEMATOCRIT 35.4 % (37-47); MEAN CELL VOLUME 86.6 fL (80-100); MEAN CORPUSCULAR HEMOGLOBIN 28.9 pg (25-34); MEAN CORPUSCULAR HGB CONC 33.3 g/dl (32-36); MEAN PLATELET VOLUME 9.3 fL (7.4-10.4); PLATELET COUNT 337 K/uL (130-400); RED BLOOD COUNT 4.09 M/uL (4.2-5.4); WHITE BLOOD COUNT 11.35 K/uL (4.8-10.8)
[2017-02-10 08:17] LABS: BUN/CREATININE RATIO 12.9 (10-20); CALCIUM 8.6 mg/dl (8.5-10.1); CREATININE 0.68 mg/dl (0.60-1.20); MAGNESIUM 2.4 mg/dl (1.8-2.4); POTASSIUM 3.2 mmol/L (3.5-5.1)
[2017-02-10] MEDS ORDERED: POTASSIUM CHLORIDE 10 MEQ TABCR PO STA (09:06)
[2017-02-10] MEDS ORDERED: ALBUTEROL HFA 8 GM INHALER INH SCH (11:00)
--- NOTE | 2017-02-10 12:21 | Discharge Summary ---
Discharge Summary Date of Service Feb 10, 2017. (Raza Cardoso M.D.) Discharge Summary Admission Date: Jan 29, 2017 at 17:46 Discharge Date: Feb 10, 2017 Discharge Disposition: Home (with oxygen) Principal Diagnosis: Mycoplasma Pneumonia Immunizations: Have You Had Influenza Vaccine: Yes History of Tetanus Vaccine?: Yes History of Pneumococcal: Yes History of Hepatitis B Vaccine: No Procedures: CHEST ONE VIEW PORTABLE - 02/03/17 CLINICAL HISTORY: 51 years-old Female presenting with Pneumonia, Atypical. TECHNIQUE: Portable upright AP view of the chest was obtained. COMPARISON: 01/31/2017. FINDINGS: Cardiomediastinal silhouette normal. Significant interval increase in bilateral mid to lower lung reticular and groundglass opacities. No large effusion or pneumothorax. Osseous structures and upper abdomen normal. IMPRESSION: 1. Significant interval increase in mid to basilar reticular and groundglass opacities. This could be seen in the setting of pulmonary edema, although multifocal pneumonia and aspiration may also appear similarly. ABD/PELVIS IV CONTRAST ONLY CT DOSE: HISTORY: Pain ll. Pain, fever, on cell cept TECHNIQUE: Multiaxial CT images of the abdomen and pelvis were performed following the use of intravenous contrast. A dose lowering technique was utilized adhering to the principles of ALARA. COMPARISON STUDY: 10/22/2016 FINDINGS: The lung bases are clear. The liver, spleen, gallbladder, pancreas, kidneys, and adrenal glands are within normal limits. No bowel wall thickening or obstruction. The pelvic organs are unremarkable. No suspicious lytic or blastic osseous lesions. Postoperative changes consistent with a low lumbar laminectomy. IMPRESSION: No acute process the abdomen or pelvis. The above report was generated using voice recognition software. It may contain grammatical, syntax or spelling errors. (CHEST FOR PE) ANGIO WITH CT DOSE: 656.35 mGy.cm HISTORY: 51 years-old Female presents with fever and elevated d-dimer. Left lower quadrant abdominal pain. TECHNIQUE: Multiple CTA images of the chest were obtained after the intravenous administration of 92 ml Optiray 320. Coronal and sagittal MIPS were obtained from the axial data set and were submitted for review. A dose lowering technique was utilized adhering to the principles of ALARA. COMPARISON: CT abdomen and pelvis of same day. FINDINGS: CTA: There is adequate opacification of the pulmonary arteries to the level of the subsegmental branches without convincing evidence of acute pulmonary embolism. The thoracic aorta is normal in course and caliber. Heart size is normal. There is minimal reflux of contrast into the IVC, likely secondary to injection technique. CT CHEST: Thyroid is homogeneous. Mild right hilar adenopathy measuring up to 1.9 x 1.4 cm is noted. Mild left hilar and prevascular lymph nodes are also seen measuring up to 1.7 x 0.8 cm. There is no pneumothorax or pleural effusion. Moderate paraseptal and centrilobular emphysematous changes are noted. Multifocal multilobar distribution of groundglass opacities are noted diffusely throughout the lungs bilaterally. There is moderate bronchial wall thickening in a multilobar distribution. Additionally, there are areas of mosaic attenuation and interlobular septal thickening. The imaged upper abdominal structures are within normal limits. Soft tissues are unremarkable. Bones are intact with mild multilevel endplate spurring throughout the spine. IMPRESSION: 1. No evidence of acute aortic pathology or pulmonary thromboembolic disease. 2. Multifocal multilobar distribution of diffuse groundglass opacities are noted with associated bronchial wall thickening, mosaic attenuation and interlobular septal thickening. These findings are nonspecific with differential considerations including atypical pneumonia with bronchitis or pulmonary edema among other etiologies. Follow-up imaging to document resolution is recommended. 3. Background moderate centrilobular and paraseptal emphysema. (Raza Cardoso M.D.) Medication Reconciliation New Medications: Prednisone (Prednisone) 20 Mg Tab 1 TAB PO DAILY for 7 Days, #7 TAB 1 tab daily (20mg) x 7 days, then resume home regimen (10mg) daily. Albuterol (Ventolin Hfa) 60 Puffs/5400 Mcg Aers 2 PUFFS INH Q4H for SOB/Wheezing for 30 Days, #1 INHALER Levofloxacin (Levofloxacin) 750 Mg Tab 750 MG PO DAILY@1600 for 2 Days, #2 TAB Continued Medications: Amitriptyline Hcl (Elavil) 10 Mg Tab 20 MG PO HS, #60 TAB Aspirin (Aspirin Ec) 81 Mg Tab 81 MG PO DAILY Cholecalciferol (Vitamin D3) 2,000 Unit Cap 2 CAP PO DAILY, CAP Fluoxetine Hcl (Prozac) 40 Mg Cap 80 MG PO DAILY Folic Acid (Folic Acid) 1 Mg Tab 1 MG PO DAILY Gabapentin (Gabapentin) 300 Mg Cap 900 MG PO TID Lisinopril (Lisinopril) 40 Mg Tab 40 MG PO QAM Metoprolol Succinate (Metoprolol Succinate ER) 25 Mg Tabcr 1 TAB PO DAILY, #90 Oxycodone Hcl (Oxycodone Hcl) 5 Mg Cap 1 CAP PO QID Zolpidem Tartrate (Zolpidem Tartrate) 10 Mg Tab 10 MG PO HS Discontinued Medications: Prednisone (Prednisone) 5 Mg Tab 2 TAB PO DAILY Discharge Exam Subjective The patient was seen and examined at bedside. No acute overnight events. Pt was weaned to no oxygen, good sats on room air. During two step pt required 2LNC. She states she feels great today and is excited to go home. Pt has no acute complaints. Verbalizes that she has a follow up appointment with Dr. Escobar next week. Patient is resting comfortably in bed. She is wearing her compression stockings due to a small amount of edema on her right foot. Eating and urinating well. Plan of care was described to the patient and all questions were answered. Constitutional: No fever, No chills, No sweats ENT: No hearing loss Respiratory: + cough, + dyspnea on exertion, No sputum, No shortness of breath Cardiovascular: No chest pain Abdomen: No pain, No nausea, No vomiting, No diarrhea, No constipation Musculoskeletal: No joint pain Physical Exam General Appearance: WD/WN, no apparent distress Eyes: PERRL ENT: normal ENT inspection, hearing grossly normal, TMs normal Neck: supple Respiratory/Chest: chest non-tender, lungs clear, normal breath sounds, no respiratory distress, no accessory muscle use Cardiovascular: regular rate, rhythm, no edema, no gallop, no JVD, no murmur Abdomen: normal bowel sounds, non tender, soft, no organomegaly Extremities: non-tender, slight edema posterior to the right medial malleolus, pt is wearing compression stockings. Neurologic/Psychiatric: alert, normal mood/affect, oriented x 3 Skin: + pertinent finding (red fingertips and toes, skin is very pale white - findings consistent with Raynouds. There are ecchymosis on the abdomen likely from insulin injections.) (Raza Cardoso M.D.) breathing much improved off oxygen with rest Review of Systems: Constitutional: No fever Respiratory: No shortness of breath Cardiovascular: No chest pain Abdomen: No pain Physical Exam: General Appearance: no apparent distress Respiratory/Chest: lungs clear, no respiratory distress Cardiovascular: regular rate, rhythm Abdomen / GI: normal bowel sounds, non tender, soft Neurologic/Psychiatric: alert, oriented x 3 Skin: warm/dry (Judit Guerrero M.D.) Hospital Course 51F with a past medical history of Sjogren's disease, celiac disease, lupus, and Raynaud's disease that presented with shortness of breath. The patient was diagnosed with mycoplasma pneumonia after IgM antibodies returned positive, and is currently on a 14 day course of Levaquin s/p 7 days of additional Cefepime. We will also transition the patient to prednisone with taper described below. Pt is improving and we anticipate discharge on home oxygen. She has a PCP follow up in one week prior to a flight to [place] with Dr. sEcobar. She was told to keep a log of her oxygen requirements so that Dr. Escobar can more adequately assess her oxygen demands on her trip. Pt will be discharged on two days of Levaquin. She will also be discharged with an Rx for 20mg daily of Prednisone that she should take for the next 7 days and then resume her home dose of 10mg daily. Our infectious disease department recommend a repeat testing of Mycoplasma Titers to confirm serology since our titers were equivocal. Our nurse shift nurse manager, per Dr. Moss's note, will try to reschedule a rheumatological follow up closer from the pt's current scheduled follow up appointment in March. Total Time Spent: Greater than 30 minutes This includes examination of the patient, discharge planning, medication reconciliation, and communication with other providers. (Raza Cardoso M.D.) Resident Physician Supervision Note: I was present with Dr. Cardoso in bedside. I verified the hatch history and physical, reviewed labs and image studies, discussed the case with the resident and agree with the findings and care plan. Total Time Spent: Greater than 30 minutes (35) (Judit Guerrero M.D.) Discharge Instructions Please refer to the electronic Patient Visit Report (Discharge Instructions) for additional information. (Raza Cardoso M.D.) Follow-Up Dr. Escobar within one week. Dr. Duarte at next scheduled appointment (at present it is in March, our nurse shift nurse manager will try to move it up sooner). (Raza Cardoso M.D.) Additional Copies To Jairo Escobar M.D.; Stuart Moss M.D. Resident Involvement: Resident Care Provided Care Provided: [facility] (Raza Cardoso M.D.)
[2017-02-10] MEDS ORDERED: PRED20TA PO ×2 (12:25→12:54)
[2017-02-10] MEDS ORDERED: PRVHFAIN INH ×2 (12:25→12:54)
[2017-02-10] MEDS ORDERED: LVQ750 PO ×2 (12:25→12:54)
--- NOTE | 2017-02-10 12:34 | Discharge Instructions ---
Discharge Instructions Date of Service Feb 10, 2017. Admission Reason for Admission: Pneumonia Discharge Discharge Diagnosis / Problem: Mycoplasma Pneumonia Discharge Goals Goal(s): Decrease discomfort, Improve function, Increase independence, Improve nutritional status, Learn about illness Activity Recommendations Activity Limitations: per Instructions/Follow-up section . Instructions / Follow-Up Instructions / Follow-Up Please keep your follow up appointment with Dr. Escobar and Dr. Moss as scheduled. If you feel short of breath please use your oxygen. If you are coughing, wheezing and otherwise short of breath you can use your Albuterol Inhaler. We are sending you with a new prescription for Albuterol. It may be beneficial for you to keep a log of your oxygen requirements so that Dr. Escobar can adequately assistant golf professional your oxygen requirements for your upcoming trip to [place] next week. You have also been prescribed 20mg daily of Prednisone. This is approximately double your home dose. Take one 20mg tablet every day for the next seven days and then you can take your home dosage of 10mg daily. You have also been prescribed two more days of the Antibiotic Levofloxacin. Take one pill daily. Our infectious disease department recommend a repeat testing of Mycoplasma Titers in 3-4 weeks to confirm serology since our titres were equivocal. This recommendation is not a necessary requirement if you are feeling better. Our nurse enterprise project manager will try to bump your appointment with Dr. Moss to a time that is more convenient for you and closer than your schedule appointment in March. Current Hospital Diet Patient's current hospital diet: Regular Diet Discharge Diet Recommended Diet: Regular Diet Pending Studies Studies pending at discharge: no Laboratory Results Lipid Panel Test 12/08/16 13:09 Range/Units Triglycerides Level 99 0-150 mg/dl Cholesterol Level 175 0-200 mg/dl HDL Cholesterol 70 mg/dl Cholesterol/HDL Ratio 2.5 LDL Cholesterol, Calculated 85 mg/dl Medical Emergencies . Who to Call and When: Medical Emergencies: If at any time you feel your situation is an emergency, please call 911 immediately. . Non-Emergent Contact Non-Emergency issues call your: Primary Care Provider, Specialist (Rheumatology ) . . "Provider Documentation" section prepared by Raza Cardoso. . VTE Core Measure Inpt VTE Proph given/why not?: Enoxaparin (Lovenox)SQ Resident Involvement: Resident Care Provided Care Provided: Adult Hospital Medicine
--- NOTE | 2017-02-10 12:36 | Infectious Disease Progress Nt ---
Progress Note Date of Service Feb 10, 2017. Subjective Pt evaluation today including: conversation w/ patient, physical exam, chart review, lab review, review of studies, conversation w/ [employer] consultant, review of inpatient medication list Patient continues to improve. Less short of breath, less dyspnea on exertion. No fever. Tolerating antibiotic without apparent difficulty. All Other Systems: Reviewed and Negative Medications Current Inpatient Medications Medications (Trade) Dose Ordered Sig/Miranda Route Start Time Stop Time Status Last Admin Dose Admin Acetaminophen (Tylenol Tab) 650 mg Q4H PRN PO 01/29/17 17:45 02/28/17 17:44 02/08/17 10:49 650 MG Al Hydrox/Mg Hydrox/Simethicone (Maalox Max Susp) 15 ml Q4H PRN PO 01/29/17 17:45 02/28/17 17:44 02/01/17 17:06 15 ML Magnesium Hydroxide (Milk Of Magnesia Susp) 30 ml Q6H PRN PO 01/29/17 17:45 02/28/17 17:44 Polyethylene (Miralax Powder Packet) 17 gm DAILY PRN PO 01/29/17 17:45 02/28/17 17:44 02/09/17 11:29 17 GM Ondansetron HCl (Zofran Inj) 4 mg Q6H PRN IV 01/29/17 17:45 02/28/17 17:44 Future hold 02/04/17 13:49 4 MG Zolpidem Tartrate (Ambien Tab) 5 mg HSZ PRN PO 01/29/17 17:45 02/28/17 17:44 02/09/17 21:11 5 MG Enoxaparin Sodium (Lovenox Inj) 40 mg QAM SQ 01/30/17 09:00 03/01/17 08:59 02/10/17 07:47 40 MG Amitriptyline HCl (Elavil Tab) 20 mg HS PO 01/29/17 21:00 02/28/17 20:59 02/09/17 21:10 20 MG Aspirin (Ecotrin Tab) 81 mg DAILY PO 01/29/17 18:30 02/28/17 18:29 02/10/17 07:45 81 MG Cholecalciferol (Vitamin D Tab) 2,000 inter.unit DAILY PO 01/30/17 09:00 03/01/17 08:59 02/10/17 07:47 2,000 INTER.UNIT Gabapentin (Neurontin Cap) 900 mg TID PO 01/29/17 21:00 02/28/17 20:59 02/10/17 07:46 900 MG Lisinopril (Zestril Tab) 40 mg QAM PO 01/30/17 09:00 03/01/17 08:59 Future Hold 01/31/17 09:23 40 MG Metoprolol Tartrate (Lopressor Tab) 25 mg QAM PO 01/30/17 09:00 03/01/17 08:59 Future hold Oxycodone HCl (Roxicodone Immediate Rel Tab) 5 mg QID PO 01/29/17 21:00 02/12/17 20:59 02/10/17 07:47 5 MG Phenol (Chloraseptic 1.4% [place]) 1 sprays Q2H PRN MT 01/31/17 09:30 03/02/17 09:29 01/31/17 09:37 1 SPRAYS Fluoxetine HCl (Prozac Cap) 80 mg DAILY PO 02/01/17 09:00 03/03/17 08:59 02/10/17 07:46 80 MG Calcium Carbonate (Tums Chew Tab) 1,000 mg Q4H PRN PO 01/31/17 20:45 03/02/17 20:44 Pantoprazole Sodium (Protonix Tab) 40 mg QAM PRN PO 02/01/17 00:15 03/03/17 00:14 02/05/17 07:49 40 MG Menthol (Nice Saadia) 1 saadia PRN PRN PO 02/04/17 07:00 03/06/17 06:59 Levofloxacin (Levaquin Tab) 750 mg DAILY@1600 PO 02/04/17 16:00 02/12/17 23:59 02/09/17 15:26 750 MG Artificial Tears (Artificial Tears) 1 drops DIRECTED PRN OP 02/06/17 17:00 03/08/17 16:59 Lorazepam (Ativan Tab) 0.5 mg BID PRN PO 02/09/17 14:45 03/11/17 14:44 02/10/17 07:47 0.5 MG Lorazepam (Ativan Tab) 0.5 mg NOW PRN PO 02/09/17 14:45 03/11/17 14:44 Albuterol (Ventolin Hfa Inhaler) 2 puffs Q4H INH 02/10/17 11:00 03/12/17 10:59 02/10/17 11:56 2 PUFFS Objective Vital Signs Date Time Temp Pulse Resp B/P (MAP) Pulse Ox O2 Delivery O2 Flow Rate FiO2 02/10/17 07:43 36.5 79 18 153/91 (111) 92 1.0 02/10/17 07:18 72 16 97 Nasal Cannula 2.0 02/10/17 00:15 Nasal Cannula 1.0 02/09/17 23:44 36.9 64 20 146/78 (100) 95 2.0 02/09/17 19:24 74 18 98 Nasal Cannula 1.0 02/09/17 16:00 94 Nasal Cannula 1.5 45 02/09/17 15:22 36.3 69 20 113/74 (87) 94 Nasal Cannula 1.5 02/09/17 14:43 70 18 98 Nasal Cannula 1.0 Physical Exam General Appearance: WD/WN, no apparent distress Eyes: normal inspection, sclerae normal ENT: normal ENT inspection, pharynx normal Neck: supple, no adenopathy, thyroid normal, trachea midline Respiratory/Chest: chest non-tender, lungs clear, normal breath sounds, no respiratory distress Cardiovascular: regular rate, rhythm, no gallop, no murmur Abdomen: normal bowel sounds, non tender, soft, no organomegaly Extremities: normal range of motion, no calf tenderness Neurologic/Psychiatric: alert, normal mood/affect, oriented x 3 Skin: normal color, warm/dry, no rash Lymphatic: no adenopathy Laboratory Results Last 24 Hours Test 02/10/17 07:33 White Blood Count 11.35 K/uL Red Blood Count 4.09 M/uL Hemoglobin 11.8 g/dL Hematocrit 35.4 % Mean Corpuscular Volume 86.6 fL Mean Corpuscular Hemoglobin 28.9 pg Mean Corpuscular Hemoglobin Concent 33.3 g/dl RDW Standard Deviation 43.6 fL RDW Coefficient of Variation 13.8 % Platelet Count 337 K/uL Mean Platelet Volume 9.3 fL Nucleated RBC Absolute Count (auto) 0.02 K/uL Nucleated Red Blood Cells % 0.2 % Sodium Level 140 mmol/L Potassium Level 3.2 mmol/L Chloride Level 103 mmol/L Carbon Dioxide Level 30 mmol/L Anion Gap 7.0 mmol/L Blood Urea Nitrogen 9 mg/dl Creatinine 0.68 mg/dl Est Creatinine Clear Calc Drug Dose 102.3 ml/min Estimated GFR () 117.4 Estimated GFR (Non- 101.3 BUN/Creatinine Ratio 12.9 Random Glucose 60 mg/dl Calcium Level 8.6 mg/dl Magnesium Level 2.4 mg/dl Assessment and Plan 51-year-old female with significant autoimmune disease on immunosuppressive therapy now presents with diffuse pneumonitis. X-ray findings more consistent with atypical process. Now with minimally positive IgM for mycoplasma. Given clinical improvement, patient should continue on Levofloxacin to complete 14 days of therapy. Would obtain convalescent mycoplasma serologies in several weeks to confirm diagnosis.
[2017-02-10 13:07] VITALS: BP 153/91; PULSE 79; TEMP 36.5; O2SAT 92
== END 2017-02-10 15:05 | disposition home or self-care (01) | DRG 193 ==
LOC: C.EDB 11:01 → EDBEDREQ 17:46 → C.2T 17:46 → EDBEDREQSVC 18:13 → ENRESERV 18:23 → C.MS2W 02-04 17:48
PROVIDERS: ADMIT Student in an Organized Health Care Education/Training Program; ATTEND Family Medicine
DX: J15.7 Pneumonia due to Mycoplasma pneumoniae (principal); J96.01 Acute respiratory failure with hypoxia; Q87.1 Congenital malformation syndromes predominantly associated with short stature; D58.9 Hereditary hemolytic anemia, unspecified; M32.9 Systemic lupus erythematosus, unspecified; E78.5 Hyperlipidemia, unspecified; F32.9 Major depressive disorder, single episode, unspecified; E87.6 Hypokalemia; K90.0 Celiac disease; I10 Essential (primary) hypertension; I73.00 Raynaud's syndrome without gangrene; I95.9 Hypotension, unspecified; T45.1X5A Adverse effect of antineoplastic and immunosuppressive drugs, initial encounter; G89.29 Other chronic pain; Z79.52 Long term (current) use of systemic steroids; Z79.82 Long term (current) use of aspirin; Z79.899 Other long term (current) drug therapy; Z87.891 Personal history of nicotine dependence

== ENCOUNTER → 2017-02-17 | Outpatient (CLI) | payer OTHER ==
[~2017-02-17] MED LIST changes: -ATORVASTATIN PO; +AZIT250T PO; -CHOL100027 PO; +CHOL2000 PO; +LINA1CAP2 PO; -LSX20 PO; +LVQ750 PO; -MTH25 PO; -OXYC-57 PO; +OXYC1CAP5 PO; +POTA20TA16 PO; -PRED-301 PO; +PRED20TA PO; +PRVHFAIN INH; -SYN50 PO; +TPRSR/25 PO
[2017-02-17 17:37] LABS: BASO % 0.1 %; BASO ABS # 0.01 K/uL (0-0.2); COMPLETE YES; EOS % 0.1 %; HEMATOCRIT 34.6 % (37-47); IG% 0.4 %; LYMPH % 4.3 %; LYMPH ABS # 0.52 K/uL (1.2-3.4); MEAN CELL VOLUME 87.2 fL (80-100); MEAN CORPUSCULAR HEMOGLOBIN 28.7 pg (25-34); MEAN CORPUSCULAR HGB CONC 32.9 g/dl (32-36); MEAN PLATELET VOLUME 10.2 fL (7.4-10.4); MONO % 3.4 %; NEUT % 91.7 %; PLATELET COUNT 290 K/uL (130-400); RED BLOOD COUNT 3.97 M/uL (4.2-5.4); WHITE BLOOD COUNT 11.96 K/uL (4.8-10.8)
[2017-02-17 17:51] LABS: ALT/SGPT 226 U/L (12-78); AST/SGOT 101 U/L (15-37); BLOOD UREA NITROGEN 9 mg/dl (7-18); BUN/CREATININE RATIO 12.2 (10-20); CALCIUM 8.3 mg/dl (8.5-10.1); CARBON DIOXIDE 24 mmol/L (21-32); CHLORIDE 103 mmol/L (98-107); CREATININE 0.77 mg/dl (0.60-1.20); GLUCOSE 99 mg/dl (70-99); POTASSIUM 4.3 mmol/L (3.5-5.1); SODIUM 134 mmol/L (136-145)
[2017-02-17 17:55] LABS: ALB/GLOB RATIO 0.7 (0.9-2); ALKALINE PHOSPHATASE 110 U/L (45-117); FERRITIN 366.3 ng/ml (8.0-388.0)
[2017-02-17 18:00] LABS: HEPATITIS B AB NEG
[2017-02-18 06:15] LABS: ESTIMATED AVERAGE GLUCOSE 128 mg/dl; HA1C FLAG Normal (Normal)
[2017-02-20 09:36] LABS: ALPHA-1-ANTITRYPSIN TC 67710E 177 MG/DL (83-199)
== END | disposition home or self-care (01) ==
LOC: C.LABBFT 11:50
PROVIDERS: ATTEND Internal Medicine
DX: R74.8 Abnormal levels of other serum enzymes (principal); J15.7 Pneumonia due to Mycoplasma pneumoniae; E87.1 Hypo-osmolality and hyponatremia; D64.9 Anemia, unspecified; R73.9 Hyperglycemia, unspecified

== ENCOUNTER → 2017-02-24 | Outpatient (CLI) | payer OTHER ==
--- NOTE | 2017-02-24 15:49 | DIAGNOSTIC IMAGING REPORT ---
CHEST 2 VIEWS ROUTINE CLINICAL HISTORY: F17.200 Nicotine [id number] Community acquired pneumoniaRAD COMPARISON STUDY: 02/03/2017 FINDINGS: The cardiac and mediastinal contours remain stable. There is been marked improvement in the previously identified bilateral interstitial[pulmonary opacities. There is no significant pleural fluid. IMPRESSION: Marked interval improvement in the previously described bilateral interstitial pulmonary opacities. Electronically signed by: Carmine Leonardo M.D. 02/24/2017 3:47 PM Dictated Date/Time: 02/24/2017 3:46 PM
== END | disposition home or self-care (01) ==
LOC: C.RAD1850 15:38
PROVIDERS: ATTEND Physician Assistant
DX: J18.9 Pneumonia, unspecified organism (principal); F17.200 Nicotine dependence, unspecified, uncomplicated

== ENCOUNTER → 2017-03-01 | Outpatient (CLI) | payer OTHER ==
[2017-03-01 10:39] LABS: BASO % 0.2 %; BASO ABS # 0.02 K/uL (0-0.2); COMPLETE YES; EOS % 1.5 %; HEMATOCRIT 37.3 % (37-47); LYMPH % 21.8 %; LYMPH ABS # 2.27 K/uL (1.2-3.4); MEAN CELL VOLUME 87.6 fL (80-100); MEAN CORPUSCULAR HEMOGLOBIN 28.4 pg (25-34); MEAN CORPUSCULAR HGB CONC 32.4 g/dl (32-36); MONO % 8.3 %; NEUT % 67.2 %; PLATELET COUNT 247 K/uL (130-400); RED BLOOD COUNT 4.26 M/uL (4.2-5.4); WHITE BLOOD COUNT 10.43 K/uL (4.8-10.8)
[2017-03-01 11:04] LABS: ALT/SGPT 124 U/L (12-78); AST/SGOT 85 U/L (15-37); BLOOD UREA NITROGEN 7 mg/dl (7-18); BUN/CREATININE RATIO 9.1 (10-20); CALCIUM 8.8 mg/dl (8.5-10.1); CARBON DIOXIDE 28 mmol/L (21-32); CHLORIDE 102 mmol/L (98-107); CREATININE 0.77 mg/dl (0.60-1.20); GLUCOSE 100 mg/dl (70-99); POTASSIUM 3.6 mmol/L (3.5-5.1); SODIUM 135 mmol/L (136-145)
[2017-03-01 11:07] LABS: ALB/GLOB RATIO 0.8 (0.9-2); ALKALINE PHOSPHATASE 108 U/L (45-117)
== END | disposition home or self-care (01) ==
LOC: C.LAB1850 08:21
PROVIDERS: ATTEND Internal Medicine
DX: J15.7 Pneumonia due to Mycoplasma pneumoniae (principal)

== ENCOUNTER → 2017-03-17 | Outpatient (CLI) | payer OTHER ==
[2017-03-17 14:05] LABS: ALT/SGPT 153 U/L (12-78); AST/SGOT 126 U/L (15-37); BLOOD UREA NITROGEN 8 mg/dl (7-18); BUN/CREATININE RATIO 9.2 (10-20); CALCIUM 8.6 mg/dl (8.5-10.1); CARBON DIOXIDE 24 mmol/L (21-32); CHLORIDE 104 mmol/L (98-107); CREATININE 0.82 mg/dl (0.60-1.20); GLUCOSE 118 mg/dl (70-99); POTASSIUM 3.2 mmol/L (3.5-5.1); SODIUM 135 mmol/L (136-145)
[2017-03-17 14:08] LABS: ALB/GLOB RATIO 0.7 (0.9-2); ALKALINE PHOSPHATASE 103 U/L (45-117)
== END | disposition home or self-care (01) ==
LOC: C.LABSPEC 12:07
PROVIDERS: ATTEND Internal Medicine
DX: R74.8 Abnormal levels of other serum enzymes (principal)

== ENCOUNTER 2017-04-03 18:32 | Emergency (ER) | payer OTHER ==
[~2017-04-03] VITALS: Ht 175.3 cm; Wt 77.5 kg
[~2017-04-03 18:32] MED LIST changes: -AZIT250T PO; -LINA1CAP2 PO; -POTA20TA16 PO
[2017-04-03 18:40] VITALS: TEMP 36.6; Ht 175.3 cm; Wt 77.5 kg
[2017-04-03 18:57] VITALS: O2SAT 93
[2017-04-03] MEDS ORDERED: ALBUT/IPRATROP 3MG/0.5MG NEB 3 ML VIAL INH STA ×2 (19:06→21:33)
--- NOTE | 2017-04-03 19:14 | EMERGENCY ROOM VISIT NOTE ---
History Report prepared by Cole: Clifton Beck Under the Supervision of: Dr. Nona Lunsford D.O. First contact with patient: 18:46 Chief Complaint: CHEST PAIN Stated Complaint: SORETHROAT,SOB,CHEST PAIN History of Present Illness The patient is a 51 year old female who presents to the Emergency Room with complaints of worsening chest pain for the past couple of days. The patient states that the pain is worsened with deep inspiration. She is additionally been complaining of a sore throat, shortness of breath worsened with exertion, and she has been sleeping more. She states that she still has a good appetite. Pt denies headache, change in vision, fevers, nausea, vomiting, diarrhea, abdominal pain, runny nose, cough, pain with urination, and melena. The patient states that in January she had a similar episode of symptoms, and she was admitted to the hospital for a pneumonia of an unknown source. She was put on antibiotics , and she felt better after a while. She states that she did not need her oxygen during the day, however over the past couple of days she has been needing it during the day and night. The patient additionally states that she has a history of lupus, and she has increased liver enzymes and inflammation due to the lupus. She states that her son currently has a possible sinus infection. She states that she is a former smoker, and she has had a cardio ablation in the past. Source of History: patient Onset: a couple days ago Position: chest Timing: worsening Modifying Factors (Worsening): other (deep inspiration) Associated Symptoms: + sorethroat, + SOB Review of Systems See HPI for pertinent positives & negatives. A total of 10 systems reviewed and were otherwise negative. 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 (3) DEPRESSIVE DISORDER NEC (4) HYPERLIPIDEMIA NEC/NOS (5) Hyponatremia (6) Immunocompromised patient (7) Lupus (8) Pneumonia (9) Raynaud's disease (10) Shortness of breath (11) Sjogren's disorder (12) SYST LUPUS ERYTHEMATOSIS (13) TOBACCO USE DISORDER Family History Cancer Gallbladder disease Heart disease Hypertension Kidney disease Kidney stones Lung disease Social History Smoking Status: Never Smoker Alcohol Use: none Drug Use: none Marital Status: Housing Status: lives with family Occupation Status: unemployed Current/Historical Medications Scheduled Albuterol (Ventolin Hfa), 2 PUFFS INH Q4H Amitriptyline Hcl (Elavil), 20 MG PO HS Aspirin (Aspirin Ec), 81 MG PO DAILY Azithromycin (Zithromax), 250 MG PO DAILY Cholecalciferol (Vitamin D3), 2 CAP PO DAILY Fluoxetine Hcl (Prozac), 80 MG PO DAILY Folic Acid (Folic Acid), 1 MG PO DAILY Gabapentin (Gabapentin), 900 MG PO TID Linaclotide (Linzess), 290 MCG PO DAILY Lisinopril (Lisinopril), 40 MG PO QAM Oxycodone Hcl (Oxycodone Hcl), 1 CAP PO QID Potassium Ext Rel (Klor-Con), 20 MEQ PO DAILY Prednisone (Prednisone), 1 TAB PO DAILY Zolpidem Tartrate (Zolpidem Tartrate), 10 MG PO HS Allergies Coded Allergies: Cefazolin (Unverified Allergy, Intermediate, ITCHING, 04/03/17) PER [facility] Penicillins (Verified Allergy, Intermediate, passes out as a child, ) 01/31/17- INTERVIEW WITH PATIENT, HAS TAKEN AUGMENTIN SINCE REACTION Vancomycin (Verified Allergy, Intermediate, red man syndrome, 01/29/17) Physical Exam Vital Signs Date Time Temp Pulse Resp B/P (MAP) Pulse Ox O2 Delivery O2 Flow Rate FiO2 04/03/17 23:51 78 18 128/68 96 04/03/17 22:56 77 04/03/17 22:43 76 18 94 Room Air 04/03/17 21:48 91 Room Air 04/03/17 21:31 72 18 119/69 95 Room Air 04/03/17 20:15 72 20 136/78 95 Room Air 04/03/17 19:30 76 04/03/17 19:28 76 18 94 Room Air 04/03/17 18:57 93 Room Air 04/03/17 18:57 93 Room Air 04/03/17 18:40 36.6 77 18 117/75 96 Room Air Physical Exam GENERAL: alert, well appearing, well nourished, no distress, non-toxic EYE EXAM: normal conjunctiva, PERRL and EOM's grossly intact OROPHARYNX: no exudate, no erythema, lips, buccal mucosa, and tongue normal and mucous membranes are moist NECK: supple, no nuchal rigidity, no adenopathy, non-tender LUNGS: Clear to auscultation. Normal chest wall mechanics HEART: no murmurs, S1 normal and S2 normal CHEST: One area of reproducible chest pain near the right sternal border with palpation. ABDOMEN: abdomen soft, non-tender, normo-active bowel sounds, no masses, no rebound or guarding. BACK: Back is symmetrical on inspection and there is no deformity, no midline tenderness, no CVA tenderness. SKIN: no rashes and no bruising UPPER EXTREMITIES: upper extremities are grossly normal. LOWER EXTREMITIES: No pitting edema. NEURO EXAM: Normal sensorium, cranial nerves II-XII [grossly] intact, normal speech, no [gross] weakness of arms, no [gross] weakness of legs. [No drift. Finger to nose intact. Gross sensation intact.] Medical Decision & Procedures ER Provider Diagnostic Interpretation: Radiology results have been interpreted by the radiologist and reviewed by me. CHEST 2 VIEWS ROUTINE HISTORY: Atypical chest pain, short of breath COMPARISON: Chest 02/24/2017. FINDINGS: The lungs are clear. Cardiac silhouette is normal in size. No pleural effusions. No pneumothorax. IMPRESSION: No acute process. Electronically signed by: Alexandr Deleon M.D. 04/03/2017 7:51 PM Dictated Date/Time: 04/03/2017 7:49 PM CHEST CTA for PULMONARY ARTERIES CT DOSE: 277.28 mGy.cm HISTORY: Short of breath. Atypical chest pain. TECHNIQUE: Multiaxial CT images of the chest were performed following the intravenous administration of contrast to evaluate the pulmonary arteries. Maximal intensity projection images were also obtained. A dose lowering technique was utilized adhering to the principles of ALARA. COMPARISON STUDY: Chest CTA 01/29/2017. FINDINGS: The ascending thoracic aorta measures up to 3.7 cm in diameter. No evidence for an aortic dissection. Trace bilateral pleural effusions, unchanged. Heterogeneous opacification of the pulmonary arteries. However, no definite filling defects within the pulmonary arteries to suggest pulmonary embolus. No significant mediastinal or hilar lymphadenopathy. Small amount of fluid within the esophagus. No fractures within the visualized osseous structures. No pneumothorax. The central airways are patent. Mild to moderate emphysema. No focal lung consolidations to suggest pneumonia. IMPRESSION: 1. No evidence for pulmonary embolus. 2. Mild to moderate emphysema. 3. Trace bilateral pleural effusions, unchanged. Electronically signed by: Alexandr Deleon M.D. 04/03/2017 9:19 PM Dictated Date/Time: 04/03/2017 9:09 PM Laboratory Results 04/03/17 19:25 Red Blood Count 4.25, Mean Corpuscular Volume 84.9, Mean Corpuscular Hemoglobin 27.1, Mean Corpuscular Hemoglobin Concent 31.9, Mean Platelet Volume 9.6, Neutrophils (%) (Auto) 88.3, Lymphocytes (%) (Auto) 8.4, Monocytes (%) (Auto) 2.9, Eosinophils (%) (Auto) 0.1, Basophils (%) (Auto) 0.1, Neutrophils # (Auto) 7.95, Lymphocytes # (Auto) 0.76, Monocytes # (Auto) 0.26, Eosinophils # (Auto) 0.01, Basophils # (Auto) 0.01 04/03/17 19:25 Test 04/03/17 19:25 04/03/17 22:30 White Blood Count 9.01 K/uL (4.8-10.8) Red Blood Count 4.25 M/uL (4.2-5.4) Hemoglobin 11.5 g/dL (12.0-16.0) Hematocrit 36.1 % (37-47) Mean Corpuscular Volume 84.9 fL (80-100) Mean Corpuscular Hemoglobin 27.1 pg (25-34) Mean Corpuscular Hemoglobin Concent 31.9 g/dl (32-36) Platelet Count 284 K/uL (130-400) Mean Platelet Volume 9.6 fL (7.4-10.4) Neutrophils (%) (Auto) 88.3 % Lymphocytes (%) (Auto) 8.4 % Monocytes (%) (Auto) 2.9 % Eosinophils (%) (Auto) 0.1 % Basophils (%) (Auto) 0.1 % Neutrophils # (Auto) 7.95 K/uL (1.4-6.5) Lymphocytes # (Auto) 0.76 K/uL (1.2-3.4) Monocytes # (Auto) 0.26 K/uL (0.11-0.59) Eosinophils # (Auto) 0.01 K/uL (0-0.5) Basophils # (Auto) 0.01 K/uL (0-0.2) RDW Standard Deviation 46.8 fL (36.4-46.3) RDW Coefficient of Variation 15.1 % (11.5-14.5) Immature Granulocyte % (Auto) 0.2 % Immature Granulocyte # (Auto) 0.02 K/uL (0.00-0.02) Prothrombin Time 10.5 SECONDS (9.0-12.0) Prothromb Time International Ratio 1.0 (0.9-1.1) D-Dimer 640 ug/L FEU (0-500) Anion Gap 12.0 mmol/L (3-11) Est Creatinine Clear Calc Drug Dose 76.5 ml/min Estimated GFR () 84.7 Estimated GFR (Non- 73.1 BUN/Creatinine Ratio 8.5 (10-20) Calcium Level 9.2 mg/dl (8.5-10.1) Magnesium Level 2.0 mg/dl (1.8-2.4) Total Bilirubin 0.3 mg/dl (0.2-1) Aspartate Amino Transf (AST/SGOT) 103 U/L (15-37) Alanine Aminotransferase (ALT/SGPT) 101 U/L (12-78) Alkaline Phosphatase 98 U/L (45-117) Pro-B-Type Natriuretic Peptide 28 pg/ml (0-900) Total Protein 7.2 gm/dl (6.4-8.2) Albumin 2.9 gm/dl (3.4-5.0) Globulin 4.3 gm/dl (2.5-4.0) Albumin/Globulin Ratio 0.7 (0.9-2) Troponin I < 0.015 ng/ml (0-0.045) Laboratory results per my review. Medications Administered Medications (Trade) Dose Ordered Sig/Miranda Route Start Time Stop Time Status Last Admin Dose Admin Albuterol/ Ipratropium (Duoneb) 3 ml NOW STAT INH 04/03/17 19:06 04/03/17 19:08 DC 04/03/17 19:18 3 ML Dexamethasone Sodium Phosphate (Decadron Inj) 10 mg NOW ONCE IV 04/03/17 21:45 04/03/17 21:46 DC 04/03/17 21:41 10 MG Albuterol/ Ipratropium (Duoneb) 3 ml NOW STAT INH 04/03/17 21:33 04/03/17 21:34 DC 04/03/17 21:41 3 ML Azithromycin (Zithromax Tab) 500 mg NOW ONCE PO 04/03/17 23:00 04/03/17 23:01 DC 04/03/17 23:10 500 MG ECG Indication: chest pain, SOB/dyspnea Rate (beats per minute): 72 Rhythm: normal sinus Findings: T-wave inversion (V2 and V3), no ectopy, other (Normal axis and interval) ED Course 1845: The patient was evaluated in room C7. A complete history and physical exam was performed. 1905: DuoNeb 3ml INH 2125: I reevaluated the patient, and she was still having some discomfort. 2132: DuoNeb 3ml INH 2144: Decadron Inj 10mg IV 2299: Azithromycin 500mg PO 2327: Upon reevaluation, the patient is feeling better. I discussed the findings and the treatment plan with the patient. She verbalizes agreement and understanding. She was discharged home. Medical Decision Differential diagnosis: Etiologies such as cardiac ischemia, aortic dissection, pulmonary embolism, pneumonia, pneumothorax, musculoskeletal, infections, pericarditis, myocarditis , esophageal rupture, gastrointestinal, as well as others were entertained. Heart score 2 Patient well-appearing here despite complaints, vital signs stable. Patient felt improved following treatment of likely COPD exacerbation/bronchitis. Doubt ACS. Serial troponins drawn and were negative. Doubt vascular etiology. CT in December of the chest otherwise unremarkable no evidence for dissection, PE , tamponade, effusion, infiltrate, pulmonary edema. Patient's exam not consistent with CHF. Patient does have home O2 which she took and wears at night, she has occasionally the past morning when necessary during the day. Discussed with her use of her home O2, need for close follow-up with her family doctor as well as her pattern marker. Patient states she has an adverse reaction to prednisone, but was amenable to a one-time dose of Decadron IV here. Patient does have an MDI, however was provided with a spacer here to use of that at home also. Discussed with patient symptoms to watch and return for, she verbalized understanding was agreeable with plan. Medication Reconcilliation Current Medication List: was personally reviewed by me Blood Pressure Screening Patient's blood pressure: Normal blood pressure Impression Primary Impression: Shortness of breath Additional Impressions: Chest pain COPD (chronic obstructive pulmonary disease) Bronchitis Scribe Attestation The scribe's documentation has been prepared under my direction and personally reviewed by me in its entirety. I confirm that the note above accurately reflects all work, treatment, procedures, and medical decision making performed by me. Departure Information Dispostion Home / Self-Care Prescriptions Azithromycin (Zithromax) 250 Mg Tab 250 MG PO DAILY, #4 TAB Prov: Nona Lunsford, 04/03/17 Referrals Jairo Escobar M.D. (PCP) Forms Call Back Authorization, HOME CARE DOCUMENTATION FORM, IMPORTANT VISIT INFORMATION Patient Instructions [facility] Additional Instructions Please continue regular medications as prescribed. You can use the inhaler up to every 4 hours as needed for chest tightness or trouble breathing. Please take antibiotic as prescribed. Please drink plenty of water. Please follow up with your family doctor on Wednesday to recheck your symptoms. If you're having any worsening trouble breathing, increased chest pain, or coughing up blood, develop fevers, you've any other new concerns, please return the emergency room. Problem Qualifiers Additional Impressions: Chest pain Chest pain type: unspecified Qualified Codes: R07.9 - Chest pain, unspecified COPD (chronic obstructive pulmonary disease) COPD type: unspecified COPD Qualified Codes: J44.9 - Chronic obstructive pulmonary disease, unspecified
[2017-04-03 19:35] LABS: BASO % 0.1 %; BASO ABS # 0.01 K/uL (0-0.2); COMPLETE YES; EOS % 0.1 %; HEMATOCRIT 36.1 % (37-47); IG% 0.2 %; LYMPH % 8.4 %; LYMPH ABS # 0.76 K/uL (1.2-3.4); MEAN CELL VOLUME 84.9 fL (80-100); MEAN CORPUSCULAR HEMOGLOBIN 27.1 pg (25-34); MEAN CORPUSCULAR HGB CONC 31.9 g/dl (32-36); MEAN PLATELET VOLUME 9.6 fL (7.4-10.4); MONO % 2.9 %; NEUT % 88.3 %; PLATELET COUNT 284 K/uL (130-400); RED BLOOD COUNT 4.25 M/uL (4.2-5.4); WHITE BLOOD COUNT 9.01 K/uL (4.8-10.8)
[2017-04-03] MEDS ORDERED: LINA1CAP2 PO (19:38)
[2017-04-03] MEDS ORDERED: POTA20TA16 PO (19:38)
[2017-04-03 19:51] LABS: PROTHROMBIN TIME (PATIENT) 10.5 SECONDS (9.0-12.0)
--- NOTE | 2017-04-03 19:52 | DIAGNOSTIC IMAGING REPORT ---
CHEST 2 VIEWS ROUTINE HISTORY: Atypical chest pain, short of breath COMPARISON: Chest 02/24/2017. FINDINGS: The lungs are clear. Cardiac silhouette is normal in size. No pleural effusions. No pneumothorax. IMPRESSION: No acute process. Electronically signed by: Alexandr Deleon M.D. 04/03/2017 7:51 PM Dictated Date/Time: 04/03/2017 7:49 PM
[2017-04-03 20:13] LABS: ALT/SGPT 101 U/L (12-78); BLOOD UREA NITROGEN 8 mg/dl (7-18); BUN/CREATININE RATIO 8.5 (10-20); CALCIUM 9.2 mg/dl (8.5-10.1); CARBON DIOXIDE 20 mmol/L (21-32); CHLORIDE 103 mmol/L (98-107); CREATININE 0.91 mg/dl (0.60-1.20); GLUCOSE 119 mg/dl (70-99); POTASSIUM 4.8 mmol/L (3.5-5.1); SODIUM 135 mmol/L (136-145)
[2017-04-03] MEDS ORDERED: OPTIRAY 320 IV PRN (20:15)
[2017-04-03 20:18] LABS: ALB/GLOB RATIO 0.7 (0.9-2); ALKALINE PHOSPHATASE 98 U/L (45-117); AST/SGOT 103 U/L (15-37)
--- NOTE | 2017-04-03 21:20 | DIAGNOSTIC IMAGING REPORT ---
CHEST CTA for PULMONARY ARTERIES CT DOSE: 277.28 mGy.cm HISTORY: Short of breath. Atypical chest pain. TECHNIQUE: Multiaxial CT images of the chest were performed following the intravenous administration of contrast to evaluate the pulmonary arteries. Maximal intensity projection images were also obtained. A dose lowering technique was utilized adhering to the principles of ALARA. COMPARISON STUDY: Chest CTA 01/29/2017. FINDINGS: The ascending thoracic aorta measures up to 3.7 cm in diameter. No evidence for an aortic dissection. Trace bilateral pleural effusions, unchanged. Heterogeneous opacification of the pulmonary arteries. However, no definite filling defects within the pulmonary arteries to suggest pulmonary embolus. No significant mediastinal or hilar lymphadenopathy. Small amount of fluid within the esophagus. No fractures within the visualized osseous structures. No pneumothorax. The central airways are patent. Mild to moderate emphysema. No focal lung consolidations to suggest pneumonia. IMPRESSION: 1. No evidence for pulmonary embolus. 2. Mild to moderate emphysema. 3. Trace bilateral pleural effusions, unchanged. Electronically signed by: Alexandr Deleon M.D. 04/03/2017 9:19 PM Dictated Date/Time: 04/03/2017 9:09 PM
[2017-04-03] MEDS ORDERED: DEXAMETHASONE SOD INJ 10 MG/ML VIAL IV ONE (21:45)
[2017-04-03] MEDS ORDERED: AZITHROMYCIN 250 MG TAB PO ONE (23:00)
[2017-04-03] MEDS ORDERED: AZIT250T PO (23:41)
[2017-04-03 23:51] VITALS: BP 128/68; PULSE 78; O2SAT 96
== END 2017-04-03 23:53 | disposition home or self-care (01) ==
LOC: C.EDB 18:33 → C.EDC 23:53
DX: J44.9 Chronic obstructive pulmonary disease, unspecified (principal); R06.02 Shortness of breath; R07.9 Chest pain, unspecified; E78.5 Hyperlipidemia, unspecified; F32.9 Major depressive disorder, single episode, unspecified; M32.9 Systemic lupus erythematosus, unspecified; F17.200 Nicotine dependence, unspecified, uncomplicated; Z79.82 Long term (current) use of aspirin; Z79.899 Other long term (current) drug therapy; Z88.0 Allergy status to penicillin; Z88.1 Allergy status to other antibiotic agents; Z88.8 Allergy status to other drugs, medicaments and biological substances; Z80.9 Family history of malignant neoplasm, unspecified; Z83.79 Family history of other diseases of the digestive system; Z82.49 Family history of ischemic heart disease and other diseases of the circulatory system; Z84.1 Family history of disorders of kidney and ureter

== ENCOUNTER → 2017-04-09 | Outpatient (CLI) | payer OTHER ==
[~2017-04-09] MED LIST changes: +AZIT250T PO; +LINA1CAP2 PO; -LVQ750 PO; +POTA20TA16 PO; -TPRSR/25 PO
[2017-04-09 15:05] LABS: MANUAL MICROSCOPIC REQUIRED? YES; URINE APPEARANCE CLEAR (CLEAR); URINE BILIRUBIN NEG (NEG); URINE COLOR YELLOW; URINE NITRITE NEG (NEG); UROBILINOGEN NEG (NEG)
[2017-04-09 15:06] LABS: REVIEW REQ? NO
[2017-04-09 15:19] LABS: BLOOD UREA NITROGEN 8 mg/dl (7-18); BUN/CREATININE RATIO 8.6 (10-20); CALCIUM 8.9 mg/dl (8.5-10.1); CARBON DIOXIDE 24 mmol/L (21-32); CHLORIDE 103 mmol/L (98-107); CREATININE 0.94 mg/dl (0.60-1.20); GLUCOSE 100 mg/dl (70-99); PHOSPHORUS 2.4 mg/dl (2.5-4.9); SODIUM 135 mmol/L (136-145)
[2017-04-09 15:26] LABS: URINE BACTERIA 1+ (NEG); ZZUR CULT IF INDIC CLEAN CATCH YES
[2017-04-09 15:52] LABS: URINE PROTIEN/CREAT RATIO 0.2 (0-0.2); URINE TOTAL PROTEIN 28.8 mg/dl (0-11.9)
== END | disposition home or self-care (01) ==
LOC: C.LAB1850 13:06
PROVIDERS: ATTEND Internal Medicine Nephrology
DX: J15.7 Pneumonia due to Mycoplasma pneumoniae (principal); I10 Essential (primary) hypertension

== ENCOUNTER → 2017-04-15 | Outpatient (CLI) | payer OTHER ==
--- NOTE | 2017-04-15 11:29 | DIAGNOSTIC IMAGING REPORT ---
ULTRASOUND OF THE PELVIS CLINICAL HISTORY: Abdominal distention. COMPARISON STUDY: Pelvic CT dated 01/29/2017. TECHNIQUE: Real-time, grayscale, and color flow sonography of the pelvis is performed both transabdominally and endovaginally. Images are reviewed in the transverse and longitudinal planes. FINDINGS: Uterus: The uterus is normal in size and echotexture, measuring 6.9 x 3.2 x 3.9 cm. A Nabothian cyst is incidentally noted in the cervix. Endometrium: The endometrium is normal in appearance, and the endometrial stripe is normal in thickness measuring up to 0.3 cm. Ovaries: The left ovary was not visualized. The right ovary is normal in appearance, measuring 1.7 x 0.9 x 2.1 cm. Normal Doppler waveforms are shown within the right ovary. Pelvis: There is no free fluid in the cul-de-sac. No concerning adnexal lesion is seen. IMPRESSION: 1. Unremarkable sonographic assessment of the uterus and right ovary. 2. The left ovary was not visualized. 3. No adnexal lesion is seen. Electronically signed by: Issac Aceves M.D. 04/15/2017 11:28 AM Dictated Date/Time: 04/15/2017 11:24 AM
--- NOTE | 2017-04-15 11:30 | DIAGNOSTIC IMAGING REPORT ---
ABDOMEN COMPLETE (US) CLINICAL HISTORY: 51 years-old Female presenting with ABDOMINAL DISTENTION. TECHNIQUE: Real-time grayscale and limited color Doppler ultrasound imaging of the abdomen was performed. COMPARISON: 11/03/[address] from 01/29/2017.. FINDINGS: Pancreas: Visualized portions of the pancreatic head and body normal. Liver: Mildly hyperechogenic parenchyma, although the right hemidiaphragm remains visible, likely indicating mild steatosis. Main portal vein patent with normal directional flow. Biliary: No intrahepatic biliary ductal dilatation. Common bile duct measures up to 4 mm in diameter. Gallbladder: Normal in appearance without evidence of gallstones, gallbladder wall thickening, or pericholecystic fluid. Spleen: Normal in echogenicity and size, measuring 9.2 cm in length. Kidneys: Normal in size and echogenicity. Right kidney measures 10.2 cm, and left kidney measures 10.7 cm. No hydronephrosis. Vasculature: Abdominal aorta and IVC visualized secondary to bowel gas. Ascites: None. IMPRESSION: Mild hepatic steatosis may be present. Otherwise normal right upper quadrant ultrasound. Electronically signed by: Zach Colon M.D. 04/15/2017 11:28 AM Dictated Date/Time: 04/15/2017 11:25 AM
== END | disposition home or self-care (01) ==
LOC: C.ULTRBC 10:26
PROVIDERS: ATTEND Internal Medicine
DX: R14.0 Abdominal distension (gaseous) (principal); R74.8 Abnormal levels of other serum enzymes; R19.00 Intra-abdominal and pelvic swelling, mass and lump, unspecified site

== ENCOUNTER → 2017-06-16 | Outpatient (CLI) | payer OTHER ==
[2017-06-16 10:20] LABS: THYROID STIMULATING HORMONE 4.52 uIu/ml (0.300-4.500)
--- NOTE | 2017-06-16 13:31 | DIAGNOSTIC IMAGING REPORT ---
NUCLEAR GASTRIC EMPTYING STUDY: CLINICAL HISTORY: R14.0 Abdominal [id number] COMPARISON STUDY: None TECHNIQUE: Following the oral administration of 1.1 mCi of technetium 99m sulfur colloid in egg sandwich and 8 ounces of water, static abdominal images are performed anteriorly and posteriorly at 0 minutes, 1 hour, 2 hours, and 4 hour time intervals. Gastric emptying was calculated utilizing the geometric mean method. FINDINGS: There is approximately 62 % gastric activity remaining at the 1 hour time interval, 50 % at the 2 hour time interval (normal is less than 60%), and 3 % remaining at the 4 hour time interval (normal is less than 10%). These findings are consistent with a normal study IMPRESSION: Findings are consistent with a normal study Electronically signed by: Carmine Leonardo M.D. 06/16/2017 1:30 PM Dictated Date/Time: 06/16/2017 1:29 PM
== END | disposition home or self-care (01) ==
LOC: C.NUCL 07:41
PROVIDERS: ATTEND Physician Assistant Medical
DX: R14.0 Abdominal distension (gaseous) (principal); R63.5 Abnormal weight gain

== ENCOUNTER → 2017-07-08 | Outpatient (CLI) | payer OTHER ==
[~2017-07-08] MED LIST changes: +AMLO-110 PO; +CHOL100010 PO; +GABA-112 PO; +GABA800T PO; +LEVO50TA6 PO; +LISI40TA PO; +LORA-741 PO; +OXYC1TAB3 PO; +POLY335019 PO; +PRED-301 PO; +PRLSR20 PO; +ZOLP10TA PO
[2017-07-08 15:29] LABS: BLOOD UREA NITROGEN 10 mg/dl (7-18); BUN/CREATININE RATIO 10.1 (10-20); CALCIUM 9.3 mg/dl (8.5-10.1); CARBON DIOXIDE 27 mmol/L (21-32); CHLORIDE 102 mmol/L (98-107); CREATININE 0.96 mg/dl (0.60-1.20); GLUCOSE 120 mg/dl (70-99); MAGNESIUM 2.3 mg/dl (1.8-2.4); SODIUM 135 mmol/L (136-145)
[2017-07-08 15:31] LABS: PHOSPHORUS 2.9 mg/dl (2.5-4.9)
== END | disposition home or self-care (01) ==
LOC: C.LAB1850 12:24
PROVIDERS: ATTEND Internal Medicine
DX: I10 Essential (primary) hypertension (principal)

== ENCOUNTER → 2017-08-04 | Day surgery (SDC) | payer OTHER ==
[2017-07-15 15:05] VITALS: Ht 175.3 cm; Wt 81.8 kg
[~2017-08-04] VITALS: Ht 175.3 cm; Wt 81.8 kg
[~2017-08-04] MED LIST changes: -AZIT250T PO; +BUPIVACAINE 0.25% 2.5MG/ML PF 10 ML VIAL ONE; -CHOL2000 PO; +DOXY100C76 PO; -GABA1CAP4 PO; +LIDOCAINE HCL 1% MPF 5 ML VIAL ONE; -LINA1CAP2 PO; -LSN40 PO; -OXYC1CAP5 PO; -PRED20TA PO; -ZOLP10TA6 PO
--- NOTE | 2017-08-04 14:46 | History & Physical Bridge - [place] ---
H&P Re-Evaluation Bridge Note: I have examined the patient, reviewed the History & Physical and in the interval since the performance of the History & Physical I have noted the following changes of clinical significance: No changes noted
--- NOTE | 2017-08-04 14:49 | Discharge Instructions ---
Discharge Instructions Date of Service Aug 04, 2017. Visit Reason for Visit: Low Back Pain Discharge Discharge Diagnosis / Problem: left leg pain Discharge Goals Goal(s): Decrease discomfort, Improve function Activity Recommendations Activity Limitations: resume your previous activity Anesthesia . Post Anesthesia Instructions: If you have had General Anesthesia or IV Sedation: * Do not drive today. * Resume driving when surgeon permits. * Do not make important decisions or sign legal documents today. * Call surgeon for: 1. Temperature elevations greater than 101 degrees F. 2. Uncontrollable pain. 3. Excessive bleeding. 4. Persistent nausea and vomiting. 5. Medication intolerance (nausea, vomiting or rash). * For nausea and vomiting use only clear liquids such as: tea, soda, bouillon until nausea subsides, then gradually increase diet as tolerated. * If you have any concerns or questions, call your surgeon's office. If physician is unavailable and it is an emergency, call 911 or go to the nearest emergency room. . Diet Recommendations Recommended Home Diet: resume previous diet Pending Studies Studies pending at discharge: no Medical Emergencies . Who to Call and When: Medical Emergencies: If at any time you feel your situation is an emergency, please call 911 immediately. . Non-Emergent Contact Non-Emergency issues call your: Specialist . . "Provider Documentation" section prepared by Everett Martinez. .
--- NOTE | 2017-08-04 15:12 | [facility] Post Operative Brief Note ---
Immediate Operative Summary Operative Date Aug 04, 2017. Pre-Operative Diagnosis Lumbar facet arthropathy; history of L5-S1 fusion Post-Operative Diagnosis Same Procedure(s) Performed Bilateral L4-5 Medial [address] Blocks Surgeon [address] Everett Martinez Metrology Specialist Surgeon(s) none Estimated Blood Loss 0 Findings Consistent with Post-Op Diagnosis Specimens NA Drains None Anesthesia Type Local Complication(s) none Disposition Disposition:
[2017-08-04 15:15] VITALS: TEMP 36.4
[2017-08-04 15:30] VITALS: BP 121/76; PULSE 64; O2SAT 96
--- NOTE | 2017-08-04 19:52 | OPERATIVE REPORT ---
DATE OF OPERATION: 08/04/2017 PREOPERATIVE DIAGNOSIS: History of an L5-S1 fusion with subsequent L4-L5 facet arthropathy bilaterally. POSTOPERATIVE DIAGNOSIS: Same. PROCEDURE: Bilateral L4-L5 medial branch facet blocks. INDICATIONS: The patient is a 52-year-old white female that returns today for followup. She has a fusion at L5-S1 and a feeling as it is causing undue stress on the facet joint above at L4-L5 bilaterally where she has pain. She presents today for medial branch blocks to determine if this indeed is causing the axial back pain that she has. PHYSICAL EXAMINATION: Pleasant female seated comfortably, point tenderness at the L4-L5 facet areas which were worse with extension, extension rotation, incision area below that is nontender. Negative seated straight leg raises. CONSENT: Verbal and written consent was obtained from the patient. Risks and benefits were reviewed. Risks include but are not limited to abscess and allergic reaction. The patient wishes to proceed. DESCRIPTION OF PROCEDURE: The patient was taken back to the special procedures room of [facility]. She was maintained in a prone position. Backside was cleansed with Betadine x3 and a dry sterile dressing was applied. Fluoroscope was used to identify the L4-5 transverse process junctions on the left. Overlying skin was anesthetized with 1.25 mL of lidocaine 1% at each site with a 25 gauge 1.5-inch needle. A 25 gauge 3.5 inch spinal needle was then directed contacting the bony transverse processes at L4 and L5 on the left side. It was then anesthetized with 1 mL of bupivacaine 0.25% at each site. The right L4 transverse process junction and the right L5 transverse process junction were then fluoroscopically identified. Overlying skin anesthetized with 1.25 mL of lidocaine 1% with a 25 gauge 1.5-inch needle. A 25 gauge 3.5 inch spinal needle was then directed at the bony target contacting bone and then injected with 1 mL of bupivacaine 0.25% at each site. Injections were well tolerated. DISPOSITION: The patient is taken out into the discharge recovery area where she will be discharged home once discharge criteria have been met. She has been asked to keep a pain dairy for the next 2 days to determine the efficacy of these blocks. I attest to the content of the Intraoperative Record and any orders documented therein. Any exception s are noted below.
== END | disposition home or self-care (01) ==
LOC: X.SURG 13:47
PROVIDERS: ATTEND Physical Medicine & Rehabilitation
DX: M46.96 Unspecified inflammatory spondylopathy, lumbar region (principal); Z98.890 Other specified postprocedural states; Z79.899 Other long term (current) drug therapy

== ENCOUNTER → 2017-08-27 | Outpatient (CLI) | payer OTHER ==
[~2017-08-27] MED LIST changes: -BUPIVACAINE 0.25% 2.5MG/ML PF 10 ML VIAL ONE; -LIDOCAINE HCL 1% MPF 5 ML VIAL ONE
--- NOTE | 2017-08-27 12:25 | DIAGNOSTIC IMAGING REPORT ---
CHEST 2 VIEWS ROUTINE CLINICAL HISTORY: R05 [id number] Chronic obstructive pulmonary [id number] dyspnea COMPARISON STUDY: 04/03/2017 FINDINGS: The bones soft tissues and hemidiaphragms are normal. The cardiomediastinal silhouette is normal. The lungs are clear. The pulmonary vasculature is normal. IMPRESSION: Negative chest. The above report was generated using voice recognition software. It may contain grammatical, syntax or spelling errors. Electronically signed by: Raza Flores M.D. 08/27/2017 12:23 PM Dictated Date/Time: 08/27/2017 12:23 PM
== END | disposition home or self-care (01) ==
LOC: C.RAD1850 12:13
PROVIDERS: ATTEND Internal Medicine
DX: J44.9 Chronic obstructive pulmonary disease, unspecified (principal); R05 Cough

== ENCOUNTER → 2017-09-16 | Outpatient (CLI) | payer OTHER ==
--- NOTE | 2017-09-16 13:56 | DIAGNOSTIC IMAGING REPORT ---
VIDEO SWALLOW HISTORY: M32.9 Systemic lupus [id number] TECHNIQUE: Video fluoroscopic evaluation of swallowing was performed in the AP and lateral projections by the speech pathology staff. The patient is fed nectar-thick and thin liquid barium, a barium coated wafer, and barium pudding. FLUOROSCOPY TIME: 2.1 minutes. A cine loop was submitted. COMPARISON STUDY: None. FINDINGS: There is normal hyoid excursion and epiglottic deflection. No significant penetration or aspiration identified. Swallowing function is within normal limits. Moderate esophageal dysmotility. IMPRESSION: 1. No aspiration identified. Mild esophageal dysmotility. 2. Please see the speech pathologist report for detailed findings and recommendations. Electronically signed by: Alexandr Deleon M.D. 09/16/2017 1:55 PM Dictated Date/Time: 09/16/2017 1:52 PM
--- NOTE | 2017-09-16 15:41 | SWALLOWING EVALUATION ---
HISTORY: This 52 year old woman was referred for a video swallow study at [facility] in order to rule out aspiration and identify the safest consistencies for optimal oral intake. The patient denies any significant difficulty chewing or swallowing, but does report stomach discomfort and pressure at times above her stomach/mid sternum area. PMH is significant for: Lupus, pneumonia, depression, Sjogren's, Raynaud's, tobacco abuse, carotid artery occlusion without infarct, and SOB. She also recently recovered from pneumonia. Current diet is regular. PROCEDURE: The patient was seen in the Radiology Department of [facility] for the VFSS. Cursory examination of the oral cavity revealed the patient to have upper and lower dentition in good condition. Movement of the articulators was wnl. The patient was seated upright on a stool and was viewed in both the Anterior-Posterior (A-P) and Lateral planes. Volitional phonation exercises completed in the A-P plane revealed bilateral vocal fold movement. Vocal intensity was wnl. In the lateral plane, the patient was given the following boluses: 1 tsp. thin liquid barium x 2, single swallow thin liquid barium self-presented from a cup, sequential swallows of thin liquid barium self-presented from a straw, 1 tsp. nectar-thick liquid barium, single swallow nectar-thick liquid barium self-presented from a cup, 1 tsp. barium pudding, and 1 club cracker coated in barium pudding. The patient was then repositioned into the A-P plane and given the following boluses: 1 tsp. nectar thick barium and 1 tsp. barium pudding. RESULTS: Oral Stage: Lip closure was adequate. The patient was able to maintain a cohesive liquid bolus in the oral cavity during the liquid bolus hold task. Mastication was slowed as well as lingual motion for bolus transport. There was retention lining the tongue and palate after the initial swallow. The initiation of the pharyngeal swallow occurred when the bolus head reached the valleculae. Patient swallowed in a piecemeal like fashion. Pharyngeal Stage: Soft palate elevation was complete. Laryngeal elevation revealed complete superior movement of the thyroid cartilage with complete approximation of the arytenoids to the epiglottic base. Anterior hyoid excursion was complete. Laryngeal vestibular closure was complete. The pharyngeal stripping wave was present and complete. Pharyngeal contraction was complete. There was complete distention and duration of the opening to the pharyngoesophageal segment (PES). Tongue base retraction was partially reduced with a trace column of contrast located between the tongue base and pharyngeal wall during the swallow. There was trace retention located in the valleculae and pyriforms after the swallow. The pharyngeal stage of the swallow was essentially wnl. There was no evidence of laryngeal penetration or aspiration. Esophageal stage: The patient had mid to distal esophageal retention with retrograde flow below the PES. This is suggestive of dysmotility and reflux. A liquid wash assisted to clear a majority of the retention but not fully ( some retention remained in the mid esophagus). SUMMARY/RECOMMENDATIONS: This patient presents with mild leatha-pharyngeal dysphagia. She presents with s/s of esophageal dysfunction. The following is recommended: 1. Regular diet, "Slippery", thin liquids. Avoid foods that are dry, thick, pasty, doughy. Use condiments on food such as sauce/gravy to assist in keeping foods moist. 2. Aspiration and GERD precautions. Straws OK. Fully upright for meals and for 30 minutes after meals. Do not lay flat, elevate head of the bed to at least 30 degrees at all time, to include while sleeping. 3. Safe swallow strategies: Alternate solids and liquids. Frequent rest breaks. Consider small frequent meals. 4. Follow up with a central sterile technician due to her esophageal dysfunction. A summary of the results and recommendations was discussed with the patient, to include verbal and written information regarding a slippery diet, with verbal understanding. Thank you for referral of this patient. Please contact me at if any additional information is needed.
== END | disposition home or self-care (01) ==
LOC: C.RAD 13:06
PROVIDERS: ATTEND Physician Assistant
DX: M32.9 Systemic lupus erythematosus, unspecified (principal)

== ENCOUNTER 2017-09-30 12:05 | Inpatient (IN) | payer OTHER ==
[~2017-09-30] VITALS: Ht 175.3 cm; Wt 82.0 kg
[~2017-09-30 12:05] MED LIST changes: -DOXY100C76 PO; -POTA20TA16 PO; -PRLSR20 PO; -PRVHFAIN INH; +VNTHFA/IN INH
[2017-09-30] MEDS ORDERED: ALBUT/IPRATROP 3MG/0.5MG NEB 3 ML VIAL INH STA (12:44)
[2017-09-30] MEDS ORDERED: SODIUM CHLORIDE 0.9% 1000ML 1,000 ML IV STA (12:44)
[2017-09-30 13:14] LABS: BASO % 0.2 %; BASO ABS # 0.01 K/uL (0-0.2); EOS % 4.7 %; HEMATOCRIT 37.3 % (37-47); HEMOGLOBIN 11.9 g/dL (12.0-16.0); LYMPH % 19.2 %; LYMPH ABS # 0.82 K/uL (1.2-3.4); MEAN CORPUSCULAR HEMOGLOBIN 26.8 pg (25-34); MEAN CORPUSCULAR HGB CONC 31.9 g/dl (32-36); MEAN PLATELET VOLUME 9.8 fL (7.4-10.4); MONO % 8.4 %; MONO ABS # 0.36 K/uL (0.11-0.59); NEUT % 67.5 %; NEUT ABS # 2.88 K/uL (1.4-6.5); PLATELET COUNT 252 K/uL (130-400); RED CELL DISTRIBUTION WIDTH CV 14.7 % (11.5-14.5); RED CELL DISTRIBUTION WIDTH SD 45.4 fL (36.4-46.3); WHITE BLOOD COUNT 4.27 K/uL (4.8-10.8)
[2017-09-30 13:36] LABS: CALCIUM 8.9 mg/dl (8.5-10.1); CREATININE 0.79 mg/dl (0.60-1.20); POTASSIUM 3.6 mmol/L (3.5-5.1); TOTAL PROTEIN 7.4 gm/dl (6.4-8.2)
[2017-09-30] MEDS ORDERED: OPTIRAY 320 IV PRN (13:45)
--- NOTE | 2017-09-30 14:50 | DIAGNOSTIC IMAGING REPORT ---
(CHEST FOR PE) ANGIO WITH CT DOSE: 418.00 mGy.cm HISTORY: 52 years-old Female presents with acute nausea, vomiting and rib pain. Acute shortness of breath TECHNIQUE: Multiple CTA images of the chest were obtained after the intravenous administration of 92 ml Optiray 320. Coronal and sagittal MIPS were obtained from the axial data set and were submitted for review. A dose lowering technique was utilized adhering to the principles of ALARA. COMPARISON: Chest radiographs 08/27/2017, CTA chest 04/03/2017 FINDINGS: CTA: Heart is normal in size without pericardial effusion. Minimal coronary arterial disease. Thoracic aorta is normal in course and caliber without aneurysm or dissection. The imaged great vessels are patent. The pulmonary arterial tree is opacified to the level of the subsegmental branches and demonstrates no focal filling defects to suggest pulmonary thromboembolic disease. CT CHEST: No dominant thyroid nodule. Mildly enlarged 1.2 x 1.8 cm right hilar lymph node with AP lymph nodes measuring up to 8 mm in short axis. No pneumothorax or pleural effusion. The inferior most lung bases however are excluded from the [id number]. Moderate upper lobe predominant centrilobular emphysema. There are patchy multifocal groundglass opacities throughout all lobes bilaterally within upper lobe predominant distribution. Additionally, there is mild bilateral upper lobe intralobular septal thickening. Mild bilateral bronchial wall thickening compatible with bronchitis. Central airways are patent. Mild tree-in-bud nodularity of the lung bases. No acute abnormality of the imaged upper abdomen. Soft tissues are within normal limits. Bones appear intact. IMPRESSION: 1. No acute aortic pathology or evidence of pulmonary thromboembolic disease. 2. Patchy multifocal multilobar distribution of groundglass opacities suggest infectious or inflammatory pneumonitis with areas of tree-in-bud nodularity of the lung bases suggesting associated infectious bronchiolitis. 3. Mild right hilar adenopathy, likely reactive. 4. Moderate upper lobe predominant centrilobular emphysema. 5. Coronary arterial disease. The above report was generated using voice recognition software. It may contain grammatical, syntax or spelling errors. Electronically signed by: Laron Garcia M.D. 09/30/2017 2:48 PM Dictated Date/Time: 09/30/2017 2:32 PM
[2017-09-30] MEDS ORDERED: OXYCODONE HCL IR 5 MG TAB (IMMEDIATE RELEASE) PO STA (14:54)
[2017-09-30] MEDS ORDERED: LEVAQUIN 750MG / 150ML D5W IV ONE (16:00)
[2017-09-30] MEDS ORDERED: MAGNESIUM HYDROXIDE SUSP 30 ML UDC PO PRN (16:00)
[2017-09-30] MEDS ORDERED: ONDANSETRON INJ 2 MG/ML 2 ML VIAL IV PRN (16:00)
[2017-09-30] MEDS ORDERED: ALUMINUM/MAGNESIUM/SIMETH (MAALOX MAX) 30 ML UDC PO PRN (16:00)
[2017-09-30] MEDS ORDERED: IV FLUIDS COMPLETED PRN ×2 (17:00→20:00)
--- NOTE | 2017-09-30 17:16 | History and Physical ---
History & Physical Date & Time of Service: Sep 30, 2017 at 16:40 Chief Complaint: Sob, Low Oxygen Level, Sweats, Fever Primary Care Physician: Jairo Escobar M.D. History of Present Illness Source: patient Ms. 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 Patient was admitted in the summer 2016 for confirmed mycoplasma pneumonia which she reports lengthen stay and required CPAP. She states from a pulmonary standpoint she has been well since completing the treatment. She states over the past 3-4 days she has noticed more shortness of breath with limited activity. She states she first noticed this when she was trying to make her bed and had to stop because of the shortness of breath. She initially related this to her chronic back pain and may be anxiety however did not seem to improve. She states around this time she also developed mostly a dry cough but it is occasionally productive of thick green sputum with punctate amount of blood. She states her nose is largely dry and feels that this is more postnasal drip. Today, she states that her shortness of breath was worse and so she checked her pulse ox which was 86% and then ambulated across the room and rechecked it and it showed 82%. She states she utilizes nebulizer at home that did seem to help but came in for further evaluation. She also reports a fever of 100.9 yesterday which improved to 99.9 with use of Tylenol. She also is reporting feeling diaphoretic and clammy. She states when her shortness of breath comes on she feels heaviness in the chest and chest pain diffusely. She states when she rests the shortness of breath goes away as well as the chest pain. On examination she has reproducible chest pain. She follows with Dr. Ivey for her lupus and states that she felt that she was in a flare approximately 2 weeks ago. She went to Dr. Ivey's office and was prescribed a Medrol dose pack and reports improvement however feels she may still have some residual weakness from this. She states her lupus largely affects her joints and doesn't think she has respiratory involvement. She follows with [facility]. Her sustainability officer recommended video swallow as well as gastric emptying studies as they were concerned this was related to her shortness of breath. Swallow study revealed no signs of aspiration the patient does report issues with dry foods given she has Sjogren's. Also showed mild-moderate esophageal dysmotility which she does report intermittent regurgitation of dry foods. Patient has not undergone gastric emptying study at this point but reports chronic abdominal bloating and thin stool. She underwent colonoscopy in May 2017 with no abnormal findings other than internal hemorrhoids. Past Medical/Surgical History 1. SLE 2. COPD 3. Atrial Tachycardia S/P Ablation 4. Hypothyroidism 5. Chronic Hepatitis 6. Portal Fibrosis 7. S/P Lumbar Fusion 8. S/P Tonsillectomy/Adenoidectomy Family History Cancer Gallbladder disease Heart disease Hypertension Kidney disease Kidney stones Lung disease Social History Smoking Status: Former Smoker Smokeless Tobacco Use: No Alcohol Use: none Drug Use: none Marital Status: Housing status: lives with family Occupational Status: unemployed Immunizations History of Influenza Vaccine: Yes History of Tetanus Vaccine?: Yes History of Pneumococcal: Yes History of Hepatitis B Vaccine: No Allergies Coded Allergies: Cefazolin (Unverified Allergy, Intermediate, ITCHING, 09/23/17) PER [facility] Penicillins (Verified Allergy, Intermediate, passes out as a child, ) 01/31/17- INTERVIEW WITH PATIENT, HAS TAKEN AUGMENTIN SINCE REACTION Vancomycin (Verified Allergy, Intermediate, red man syndrome, 09/23/17) Belimumab (Verified Allergy, Unknown, N/V, 09/23/17) Sorbitan (Verified Allergy, Unknown, N/V, 09/23/17) Home Medications Scheduled Amitriptyline Hcl (Elavil), 20 MG PO HS Amlodipine (Norvasc), 5 MG PO QAM Aspirin (Aspirin Ec), 81 MG PO QAM Fluoxetine Hcl (Prozac), 80 MG PO QAM Folic Acid (Folic Acid), 1 MG PO QAM Gabapentin (Neurontin), 100 MG PO TID Gabapentin (Neurontin), 800 MG PO TID Levothyroxine Sodium (Levothyroxine Sodium), 1 TAB PO QAM Lisinopril (Prinivil), 40 MG PO QAM Prednisone (Prednisone), 1 TAB PO QAM Zolpidem Tartrate (Ambien), 10 MG PO HS Scheduled PRN Albuterol Hfa (Ventolin Hfa), 2-4 PUFFS INH Q6H PRN for Shortness of Breath Oxycodone Ir (Roxicodone Ir), 5 MG PO Q4H PRN for Pain Polyethylene Glycol 3350 (Miralax), 17 GM PO DAILY PRN for Constipation Review of Systems Constitutional: + fever, + sweats, + weakness (generalized - improving), + fatigue ENT: + problem reported (dry mouth/nose) Respiratory: + cough, + sputum (minimal - green thick small punctate blood), + dyspnea on exertion, + problem reported (post nasal drip - feels that the dry nose/blood is going down the back of her throat), No dyspnea at rest Cardiovascular: + chest pain, No orthopnea, No palpitations Abdomen: + nausea, + vomiting, + constipation, No pain, No diarrhea, No GI bleeding Musculoskeletal: + joint pain (chronic - diffuse), No swelling, No calf pain Genitourinary - Female: No dysuria Hematologic / Lymphatic: No abnormal bleeding/bruising Integumentary: No rash Physical Exam Vital Signs Date Time Temp Pulse Resp B/P (MAP) Pulse Ox O2 Delivery O2 Flow Rate FiO2 09/30/17 16:00 85 20 124/81 96 Room Air 09/30/17 15:28 79 18 146/76 96 Room Air 09/30/17 15:18 20 91 Room Air 09/30/17 14:15 80 18 115/55 99 Room Air 09/30/17 12:36 66 09/30/17 12:26 96 Room Air 09/30/17 12:26 97 Room Air 09/30/17 12:13 36.8 68 20 117/77 96 Room Air General Appearance: WD/WN, no apparent distress Head: normocephalic, atraumatic Eyes: sclerae normal ENT: hearing grossly normal Neck: supple, no JVD, trachea midline Respiratory/Chest: no respiratory distress, no accessory muscle use, + decreased breath sounds (diminished at bases and into L mid-lung region), + pertinent finding (no wheezing) Cardiovascular: regular rate, rhythm, no gallop, no murmur Abdomen/GI: normal bowel sounds, non tender, + distended Back: no CVA tenderness Extremities/Musculoskelatal: no pedal edema Neurologic/Psych: alert, oriented x 3 Skin: normal color, warm/dry Diagnostics Laboratory Results Results Past 24 Hours Test 09/30/17 13:00 09/30/17 13:03 09/30/17 15:00 Range/Units White Blood Count 4.27 4.8-10.8 K/uL Red Blood Count 4.44 4.2-5.4 M/uL Hemoglobin 11.9 12.0-16.0 g/dL Hematocrit 37.3 37-47 % Mean Corpuscular Volume 84.0 80-100 fL Mean Corpuscular Hemoglobin 26.8 25-34 pg Mean Corpuscular Hemoglobin Concent 31.9 32-36 g/dl Platelet Count 252 130-400 K/uL Mean Platelet Volume 9.8 7.4-10.4 fL Neutrophils (%) (Auto) 67.5 % Lymphocytes (%) (Auto) 19.2 % Monocytes (%) (Auto) 8.4 % Eosinophils (%) (Auto) 4.7 % Basophils (%) (Auto) 0.2 % Neutrophils # (Auto) 2.88 1.4-6.5 K/uL Lymphocytes # (Auto) 0.82 1.2-3.4 K/uL Monocytes # (Auto) 0.36 0.11-0.59 K/uL Eosinophils # (Auto) 0.20 0-0.5 K/uL Basophils # (Auto) 0.01 0-0.2 K/uL RDW Standard Deviation 45.4 36.4-46.3 fL RDW Coefficient of Variation 14.7 11.5-14.5 % Immature Granulocyte % (Auto) 0.0 % Immature Granulocyte # (Auto) 0.00 0.00-0.02 K/uL Sodium Level 136 136-145 mmol/L Potassium Level 3.6 3.5-5.1 mmol/L Chloride Level 104 98-107 mmol/L Carbon Dioxide Level 25 21-32 mmol/L Anion Gap 7.0 3-11 mmol/L Blood Urea Nitrogen 7 7-18 mg/dl Creatinine 0.79 0.60-1.20 mg/dl Est Creatinine Clear Calc Drug Dose 95.4 ml/min Estimated GFR () 99.8 Estimated GFR (Non- 86.1 BUN/Creatinine Ratio 8.5 10-20 Random Glucose 92 70-99 mg/dl Calcium Level 8.9 8.5-10.1 mg/dl Total Bilirubin 0.3 0.2-1 mg/dl Aspartate Amino Transf (AST/SGOT) 46 15-37 U/L Alanine Aminotransferase (ALT/SGPT) 50 12-78 U/L Alkaline Phosphatase 105 45-117 U/L Total Protein 7.4 6.4-8.2 gm/dl Albumin 3.0 3.4-5.0 gm/dl Globulin 4.4 2.5-4.0 gm/dl Albumin/Globulin Ratio 0.7 0.9-2 Bedside D-Dimer > 450 0-450 ng/mlFEU Bedside Troponin I < 0.030 0-0.045 ng/ml Urine Color YELLOW Urine Appearance CLEAR CLEAR Urine pH 7.0 4.5-7.5 Urine Specific Reynolds 1.019 1.000-1.030 Urine Protein NEG NEG Urine Glucose (UA) NEG NEG Urine Ketones NEG NEG Urine Occult Blood NEG NEG Urine Nitrite NEG NEG Urine Bilirubin NEG NEG Urine Urobilinogen NEG NEG Urine Leukocyte Esterase SMALL NEG Urine WBC (Auto) 1-5 0-5 /hpf Urine RBC (Auto) 0-4 0-4 /hpf Urine Hyaline Casts (Auto) 1-5 0-5 /lpf Urine Epithelial Cells (Auto) 10-20 0-5 /lpf Urine Bacteria (Auto) NEG NEG Diagnostic Radiology (CHEST FOR PE) ANGIO WITH FINDINGS: CTA: Heart is normal in size without pericardial effusion. Minimal coronary arterial disease. Thoracic aorta is normal in course and caliber without aneurysm or dissection. The imaged great vessels are patent. The pulmonary arterial tree is opacified to the level of the subsegmental branches and demonstrates no focal filling defects to suggest pulmonary thromboembolic disease. CT CHEST: No dominant thyroid nodule. Mildly enlarged 1.2 x 1.8 cm right hilar lymph node with AP lymph nodes measuring up to 8 mm in short axis. No pneumothorax or pleural effusion. The inferior most lung bases however are excluded from the [id number]. Moderate upper lobe predominant centrilobular emphysema. There are patchy multifocal groundglass opacities throughout all lobes bilaterally within upper lobe predominant distribution. Additionally, there is mild bilateral upper lobe intralobular septal thickening. Mild bilateral bronchial wall thickening compatible with bronchitis. Central airways are patent. Mild tree-in-bud nodularity of the lung bases. No acute abnormality of the imaged upper abdomen. Soft tissues are within normal limits. Bones appear intact. IMPRESSION: 1. No acute aortic pathology or evidence of pulmonary thromboembolic disease. 2. Patchy multifocal multilobar distribution of groundglass opacities suggest infectious or inflammatory pneumonitis with areas of tree-in-bud nodularity of the lung bases suggesting associated infectious bronchiolitis. 3. Mild right hilar adenopathy, likely reactive. 4. Moderate upper lobe predominant centrilobular emphysema. 5. Coronary arterial disease. EKG Poor data quality, interpretation may be adversely affected Normal sinus rhythm T wave abnormality, consider anterior ischemia Abnormal ECG When compared with ECG of 03-APR-2017 18:45, No significant change was found Confirmed by AMANDO VIVAS ([id number]) on 09/30/2017 2:28:22 PM Impression Assessment and Plan Ms. 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 Multifocal Pneumonia vs Pneumonitis: Immunocompromised -Patient is adequately oxygenating on room air in the ED however subjectively reporting hypoxia in the 80s at home prior to presentation; she has a prior history of mycoplasma pneumonia in the summer 2016; Reporting febrile yesterday - on chronic steroids for SLE -Reviewed video swallow which shows no signs of a of aspiration - recommend to continue a diet of slippery foods and frequent sips between bites given her Sjogren's --Video swallow also mentions esophageal dysmotility that is either mild or moderate as both terms were used in the report - patient does report certain foods that she swallows she occasionally regurgitates especially if they are not slippery foods -Will hold on anaerobic coverage at this time but will add PPI for dysmotility and her CCB may help with this -Levaquin 750 mg IV daily; Methylprednisolone 40 mg IV Q8H; Duonebs SLE with Recent Exacerbation and Chronic Pain and Sjogrens: -States she completed a steroid taper approximately 2 weeks ago for SLE flair; no longer on CellCept and is only maintained on prednisone -Hold chronic prednisone while utilizing IV forms -Amitriptyline 20 mg daily and Gabapentin 900 mg TID; Roxicodone 5 mg PRN COPD without Exacerbation: -No wheezing on examination but does have some diminished breath sounds at the bases bilaterally and on the left side up to the midlung range -Reviewed outpatient PFTs -reporting normal spirometry but diffusion severely reduced to 42% HTN: -Norvasc 5 mg daily and lisinopril 40 mg daily Hypothyroidism: -Synthroid 50 mcg daily DVT Prophylaxis: Heparin Code Status: FULL RESUSCITATION Disposition: - Could consider consultation to sustainability officer - recommend two step prior to D/ C to assess O2 needs I personally interviewed and examined the patient. I agree with history of present illness and physical exam mentioned above, I also performed my own history taking and examination. Past medical history and review of system has been obtained by myself I reviewed all pertinent labs and studies Reviewed current medications I discussed and formulated of the assessment and plan mentioned above. Please refer to the Summary mentioned below. 52-year-old female who is immune compromised secondary to CellCept/prednisone, patient has systemic lupus erythematosus/Sjogren's disease which appears to be stable at this point. She also has past medical history of COPD, hypothyroidism , hypertension, chronic hepatitis with portal fibrosis, gastroparesis and tachycardia status post ablation. Patient was treated previously for mycoplasma pneumonia. Presented to the hospital with 3 days history of exertional shortness of breath. CT scan showed multifocal density suspicious for pneumonia. Patient will be admitted for further evaluation and management. Started on IV antibiotics, will also order a sputum culture, pro calcitonin, and urine Legionella. General Appearance: not in acute distress Eyes: normal Sclerae, extraocular muscle intact ENT: hearing grossly normal Neck: supple Respiratory/Chest: normal air entry bilateral ,no respiratory distress, no accessory muscle use Cardiovascular: regular rate, rhythm, no murmur Abdomen: non tender, soft, no masses Extremities: no edema Neurologic/Psychiatric: Awake alert oriented times place and person moves all extremities sensation intact cranial nerves II-12 appear to be intact Skin: normal color, warm/dry, no rash Sayda Bonilla MD, [facility] Resuscitation Status VTE Prophylaxis Will order VTE Prophylaxis: Yes
[2017-09-30 17:50] VITALS: BP 162/81; PULSE 70; TEMP 37.2; O2SAT 95
--- NOTE | 2017-09-30 18:31 | EMERGENCY ROOM VISIT NOTE ---
ED Visit Note First contact with patient: 12:24 I reviewed the patient's past medical history, medications, and visit nursing notes. I discussed the case with the physician per diem physical therapist assistant, examined the patient, and agree with the findings and plan as documented in the physician assistants note.
[2017-09-30 19:00] VITALS: BP 162/81; PULSE 70; TEMP 37.2; O2SAT 95; Ht 175.3 cm; Wt 82.0 kg
[2017-09-30 19:14] LABS: INR 0.9 (0.9-1.1)
[2017-09-30] MEDS: METHYLPREDNISOLONE IV 40 MG in SYRINGE 0 ML IV SCH (19:18)
[2017-09-30] MEDS: OXYCODONE HCL IR 5 MG TAB (IMMEDIATE RELEASE) PO PRN (19:19)
[2017-09-30] MEDS: ALBUT/IPRATROP 3MG/0.5MG NEB 3 ML VIAL INH SCH (19:22)
[2017-09-30 19:25] VITALS: PULSE 72; O2SAT 98
[2017-09-30] MEDS: GABAPENTIN 800 MG TAB PO SCH (20:14)
[2017-09-30] MEDS: GABAPENTIN 100 MG CAP PO SCH (20:14)
[2017-09-30] MEDS: ACETAMINOPHEN 325 MG TAB PO PRN (21:31)
[2017-09-30] MEDS: ZOLPIDEM TARTRATE 10 MG TAB PO SCH (22:15)
[2017-09-30] MEDS: AMITRIPTYLINE HCL 10 MG TAB PO SCH (22:16)
[2017-09-30] MEDS: HEPARIN SOD 5000 UNIT/0.5 ML CARP SQ SCH (22:18)
[2017-10-01] VITALS (10 sets, daily range): BP systolic 118–128; BP diastolic 72–80; PULSE 66–92; TEMP 36.7–36.8; O2SAT 92–97
[2017-10-01] MEDS: OXYCODONE HCL IR 5 MG TAB (IMMEDIATE RELEASE) PO PRN ×5 (00:30→21:40)
[2017-10-01] MEDS: METHYLPREDNISOLONE IV 40 MG in SYRINGE 0 ML IV SCH ×3 (03:05→20:08)
[2017-10-01] MEDS: LEVOTHYROXINE 50 MCG TAB PO SCH (06:27)
[2017-10-01 07:21] LABS: HEMATOCRIT 35.1 % (37-47); HEMOGLOBIN 11.7 g/dL (12.0-16.0); IG# 0.01 K/uL (0.00-0.02); LYMPH % 13.9 %; LYMPH ABS # 0.53 K/uL (1.2-3.4); MEAN CORPUSCULAR HEMOGLOBIN 27.7 pg (25-34); MEAN CORPUSCULAR HGB CONC 33.3 g/dl (32-36); MEAN PLATELET VOLUME 9.9 fL (7.4-10.4); NEUT % 85.8 %; NEUT ABS # 3.26 K/uL (1.4-6.5); PLATELET COUNT 263 K/uL (130-400); RED CELL DISTRIBUTION WIDTH CV 14.6 % (11.5-14.5); RED CELL DISTRIBUTION WIDTH SD 44.4 fL (36.4-46.3)
[2017-10-01] MEDS: ALBUT/IPRATROP 3MG/0.5MG NEB 3 ML VIAL INH SCH ×4 (07:21→20:00)
[2017-10-01 07:45] LABS: ALBUMIN 2.6 gm/dl (3.4-5.0); CALCIUM 9.1 mg/dl (8.5-10.1); CREATININE 0.76 mg/dl (0.60-1.20); POTASSIUM 3.8 mmol/L (3.5-5.1)
[2017-10-01 07:48] LABS: TOTAL PROTEIN 7.1 gm/dl (6.4-8.2)
[2017-10-01] MEDS ORDERED: POLYETHYLENE (MIRALAX) 17 GM PACK PO SCH ×2 (08:00→21:00)
[2017-10-01] MEDS: PANTOprazole SOD 40 MG TAB PO SCH (08:26)
[2017-10-01] MEDS: ASPIRIN 81 MG ECTAB PO SCH (08:26)
[2017-10-01] MEDS: LISINOPRIL 40 MG TAB PO SCH (08:27)
[2017-10-01] MEDS: AMLODIPINE BESYLATE 5 MG TAB PO SCH (08:27)
[2017-10-01] MEDS: GABAPENTIN 100 MG CAP PO SCH ×3 (08:27→20:09)
[2017-10-01] MEDS: GABAPENTIN 800 MG TAB PO SCH ×3 (08:28→20:08)
[2017-10-01] MEDS: FLUOXETINE HCL 20 MG CAP PO SCH (08:29)
[2017-10-01] MEDS: LEVOFLOXACIN / D5W 750 MG in PREMIXED IN D5W 150 ML IV SCH (08:29)
[2017-10-01] MEDS: HEPARIN SOD 5000 UNIT/0.5 ML CARP SQ SCH ×2 (08:32→20:21)
--- NOTE | 2017-10-01 08:58 | Progress Note ---
Subjective Date of Service: Oct 01, 2017. Subjective pt feels much better, she states she started to have overly dry nasalpharnyx and that was similar to her previous issues with pneumonia, she states that is feeling slighlty improved, she is worried about some abdominal distension Problem List Medical Problems: (1) Atypical pneumonia Status: Acute (2) Bronchitis Status: Acute (3) Chest pain Status: Acute (4) COPD (chronic obstructive pulmonary disease) Status: Acute (5) Dyspnea Status: Acute (6) Epiploic appendagitis Status: Acute (7) Lower abdominal pain Status: Acute (8) Pneumonia Status: Acute (9) Right lower quadrant abdominal pain Status: Acute (10) Weakness Status: Acute Review of Systems Constitutional: + weakness, + fatigue, No fever Respiratory: + cough, + dyspnea on exertion, No shortness of breath Cardiac: No chest pain, No edema Abdomen: No pain, No nausea, No vomiting, No diarrhea Female : No dysuria, No urinary frequency, No hematuria Psychiatric: No depression symptoms, No anxiety Objective Vital Signs Date Time Temp Pulse Resp B/P (MAP) Pulse Ox O2 Delivery O2 Flow Rate FiO2 10/01/17 07:56 36.8 72 14 128/80 (96) 95 Room Air 10/01/17 07:21 66 96 Room Air 10/01/17 00:35 36.7 76 18 118/73 (88) 93 Room Air 10/01/17 00:15 Room Air 09/30/17 19:25 72 98 Room Air 09/30/17 19:00 37.2 70 18 162/81 95 Room Air 09/30/17 17:50 37.2 70 18 162/81 (108) 95 Room Air 09/30/17 17:34 80 18 148/99 96 09/30/17 16:00 85 20 124/81 96 Room Air 09/30/17 15:28 79 18 146/76 96 Room Air 09/30/17 15:18 20 91 Room Air 09/30/17 14:15 80 18 115/55 99 Room Air 09/30/17 12:36 66 09/30/17 12:26 96 Room Air 09/30/17 12:26 97 Room Air 09/30/17 12:13 36.8 68 20 117/77 96 Room Air Physical Exam General Appearance: WD/WN, + mild distress Eyes: normal inspection, sclerae normal Neck: supple, no JVD Respiratory/Chest: chest non-tender, lungs clear Cardiovascular: regular rate, rhythm, no murmur Abdomen: normal bowel sounds, non tender, soft Extremities: no pedal edema, no calf tenderness Neurologic/Psychiatric: alert, oriented x 3 Laboratory Results Last 24 Hours Test 09/30/17 13:00 09/30/17 13:03 09/30/17 15:00 09/30/17 20:17 White Blood Count 4.27 K/uL Red Blood Count 4.44 M/uL Hemoglobin 11.9 g/dL Hematocrit 37.3 % Mean Corpuscular Volume 84.0 fL Mean Corpuscular Hemoglobin 26.8 pg Mean Corpuscular Hemoglobin Concent 31.9 g/dl Platelet Count 252 K/uL Mean Platelet Volume 9.8 fL Neutrophils (%) (Auto) 67.5 % Lymphocytes (%) (Auto) 19.2 % Monocytes (%) (Auto) 8.4 % Eosinophils (%) (Auto) 4.7 % Basophils (%) (Auto) 0.2 % Neutrophils # (Auto) 2.88 K/uL Lymphocytes # (Auto) 0.82 K/uL Monocytes # (Auto) 0.36 K/uL Eosinophils # (Auto) 0.20 K/uL Basophils # (Auto) 0.01 K/uL RDW Standard Deviation 45.4 fL RDW Coefficient of Variation 14.7 % Immature Granulocyte % (Auto) 0.0 % Immature Granulocyte # (Auto) 0.00 K/uL Prothrombin Time 9.9 SECONDS Prothromb Time International Ratio 0.9 Sodium Level 136 mmol/L Potassium Level 3.6 mmol/L Chloride Level 104 mmol/L Carbon Dioxide Level 25 mmol/L Anion Gap 7.0 mmol/L Blood Urea Nitrogen 7 mg/dl Creatinine 0.79 mg/dl Est Creatinine Clear Calc Drug Dose 95.4 ml/min Estimated GFR () 99.8 Estimated GFR (Non- 86.1 BUN/Creatinine Ratio 8.5 Random Glucose 92 mg/dl Calcium Level 8.9 mg/dl Total Bilirubin 0.3 mg/dl Aspartate Amino Transf (AST/SGOT) 46 U/L Alanine Aminotransferase (ALT/SGPT) 50 U/L Alkaline Phosphatase 105 U/L Total Protein 7.4 gm/dl Albumin 3.0 gm/dl Globulin 4.4 gm/dl Albumin/Globulin Ratio 0.7 Bedside D-Dimer > 450 ng/mlFEU Bedside Troponin I < 0.030 ng/ml Urine Color YELLOW Urine Appearance CLEAR Urine pH 7.0 Urine Specific [place] 1.019 Urine Protein NEG Urine Glucose (UA) NEG Urine Ketones NEG Urine Occult Blood NEG Urine Nitrite NEG Urine Bilirubin NEG Urine Urobilinogen NEG Urine Leukocyte Esterase SMALL Urine WBC (Auto) 1-5 /hpf Urine RBC (Auto) 0-4 /hpf Urine Hyaline Casts (Auto) 1-5 /lpf Urine Epithelial Cells (Auto) 10-20 /lpf Urine Bacteria (Auto) NEG Test 10/01/17 06:57 White Blood Count 3.80 K/uL Red Blood Count 4.23 M/uL Hemoglobin 11.7 g/dL Hematocrit 35.1 % Mean Corpuscular Volume 83.0 fL Mean Corpuscular Hemoglobin 27.7 pg Mean Corpuscular Hemoglobin Concent 33.3 g/dl Platelet Count 263 K/uL Mean Platelet Volume 9.9 fL Neutrophils (%) (Auto) 85.8 % Lymphocytes (%) (Auto) 13.9 % Monocytes (%) (Auto) 0.0 % Eosinophils (%) (Auto) 0.0 % Basophils (%) (Auto) 0.0 % Neutrophils # (Auto) 3.26 K/uL Lymphocytes # (Auto) 0.53 K/uL Monocytes # (Auto) 0.00 K/uL Eosinophils # (Auto) 0.00 K/uL Basophils # (Auto) 0.00 K/uL RDW Standard Deviation 44.4 fL RDW Coefficient of Variation 14.6 % Immature Granulocyte % (Auto) 0.3 % Immature Granulocyte # (Auto) 0.01 K/uL Sodium Level 135 mmol/L Potassium Level 3.8 mmol/L Chloride Level 105 mmol/L Carbon Dioxide Level 22 mmol/L Anion Gap 8.0 mmol/L Blood Urea Nitrogen 6 mg/dl Creatinine 0.76 mg/dl Est Creatinine Clear Calc Drug Dose 99.2 ml/min Estimated GFR () 104.5 Estimated GFR (Non- 90.2 BUN/Creatinine Ratio 8.1 Random Glucose 140 mg/dl Calcium Level 9.1 mg/dl Magnesium Level 2.1 mg/dl Total Bilirubin 0.3 mg/dl Aspartate Amino Transf (AST/SGOT) 35 U/L Alanine Aminotransferase (ALT/SGPT) 40 U/L Alkaline Phosphatase 92 U/L Total Protein 7.1 gm/dl Albumin 2.6 gm/dl Globulin 4.5 gm/dl Albumin/Globulin Ratio 0.6 Assessment and Plan 52 y/o female with concern for multifocal pneumonia( mycoplasma), has a history of the same and chronic lung disease/COPD also has a PMHx of SLE, Sjogrens, COPD , Atrial Tachycardia S/P Ablation, Hypothyroidism, HTN, Chronic Hepatitis/ Portal Fibrosis, 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, Gastroparesis, Multifocal Pneumonia vs Pneumonitis: Immunocompromised Reporting febrile 09/29 at home - on chronic steroids for SLE previous video swallow has no signs of a of aspiration but mentions esophageal dysmotility that is either mild or moderate - so less concern for aspiration pneumonia however will require a diet of slippery foods and frequent sips between bites given her Sjogren's -Levaquin 750 mg IV daily; SLE with Recent Exacerbation and Chronic Pain and Sjogrens: -States she completed a steroid taper approximately 2 weeks ago for SLE flair; no longer on CellCept but is now maintained on prednisone -Holding chronic prednisone while on IV solu-medrol -Amitriptyline 20 mg daily and Gabapentin 900 mg TID; Roxicodone 5 mg PRN COPD without Exacerbation:Methylprednisolone 40 mg IV Q8H; Duonebs HTN:-Norvasc 5 mg daily and lisinopril 40 mg daily Hypothyroidism:-Synthroid 50 mcg daily DVT Prophylaxis: Heparin
--- NOTE | 2017-10-01 12:09 | EMERGENCY ROOM VISIT NOTE ---
ED Visit Note First contact with patient: 12:24 Chief Complaint: Shortness of breath. History of Present Illness: Ms. Davenport is a 52-year-old white female who ambulates into the ED complaining of shortness of breath. Historically patient has a history of atypical mycoplasma pneumonia in June 2017. After admission she did go through pulmonary rehab and was doing much better and has had no additional complications. She also has a history of COPD. Patient reports approximately 3-4 days ago she started having dyspnea on exertion. Initially it was mild and has gradually increased in intensity. She reports at home she would check her pulse oximetry when she was short of breath and she had multiple readings in the mid to low 80s. She has been using her home inhalers and home oxygen with mild relief of her discomfort. Additionally she reports rest also relieves her shortness of breath. Associated with her shortness of breath she reports that she has a heaviness sensation in the sternal area when she becomes short of breath that is once again relieved with rest. Currently she is rating that heaviness sensation a 7/ 10. Her discomfort is nonradiating. Her discomfort worsens with palpation. She has not taken any medications specifically for this discomfort. Associated with these 2 symptoms she also reports she has a very mild nonproductive cough but when she does cough anything up she describes it as a thick greenish sensation that is slightly blood-tinged and she reports sometimes at night she sweats profusely and on day 3 of her illness she reports she had a mild fever of 101F. She denies lightheaded, dizziness, headache, skin eruptions, skin color changes , palpitations, orthopnea, dependent edema, previous clots, claudication, cramping, recent surgery/inactivity/extended travel, estrogen and tobacco use, abdominal pain, nausea, vomiting, back pain, urinary symptoms. Review of Systems: As noted above in history of present illness. All body systems were reviewed and found to be negative as noted above. Past Medical History: As noted above and lupus, atrial tachycardia status post ablation, hypothyroidism, hypertension, chronic hepatitis/portal fibrosis, SIADH , gastroparesis and status post lumbar fusion and tonsillectomy/adenoidectomy. Current Medications: Medications Dose Route/Sig Max Daily Dose Days Date Category Ventolin Hfa (Albuterol) 200 Puffs/09109 Mcg Aers 2-4 Puffs INH Q6H PRN 09/23/17 Reported Elavil (Amitriptyline Hcl) 10 Mg Tab 20 Mg PO HS 09/23/17 Reported Ambien (Zolpidem Tartrate) 10 Mg Tab 10 Mg PO HS 07/16/17 Reported Miralax (Polyethylene Glycol 3350) 1 Pow Pow 17 Gm PO DAILY PRN 07/16/17 Reported Roxicodone Ir (Oxycodone HCl) 5 Mg Tab 5 Mg PO Q4H PRN 07/16/17 Reported Prednisone 5 Mg Tab 1 Tab PO QAM 07/16/17 Reported Prinivil (Lisinopril) 40 Mg Tab 40 Mg PO QAM 07/16/17 Reported Levothyroxine Sodium 50 Mcg Tab 1 Tab PO QAM 07/16/17 Reported Neurontin (Gabapentin) 800 Mg Tab 800 Mg PO TID 07/16/17 Reported Neurontin (Gabapentin) 100 Mg Cap 100 Mg PO TID 07/16/17 Reported Norvasc (Amlodipine Besylate) 5 Mg Tab 5 Mg PO QAM 07/16/17 Reported Aspirin Ec (Aspirin) 81 Mg Tab 81 Mg PO QAM 04/24/16 Reported Folic Acid 1 Mg Tab 1 Mg PO QAM 04/24/16 Reported Prozac (Fluoxetine Hcl) 40 Mg Cap 80 Mg PO QAM 04/24/16 Reported Allergies to Medications: Belimumab, cefazolin, penicillins, sorbitan, vancomycin. Social History: Patient is currently unemployed; she feels safe in her home environment; she denies current tobacco use but does report she is a former smoker. Physical Examination: Vital Signs: Date Time Temp Pulse Resp B/P (MAP) Pulse Ox O2 Delivery O2 Flow Rate FiO2 09/30/17 16:00 85 20 124/81 96 Room Air 09/30/17 15:28 79 18 146/76 96 Room Air 09/30/17 15:18 20 91 Room Air 09/30/17 14:15 80 18 115/55 99 Room Air 09/30/17 12:36 66 09/30/17 12:26 96 Room Air 09/30/17 12:26 97 Room Air 09/30/17 12:13 36.8 68 20 117/77 96 Room Air GENERAL: 52 year-old female in no acute distress, nontoxic-appearing, afebrile and hemodynamically stable. NEUROLOGICAL: Awake, alert and oriented to person, place and time. Answering questions appropriately and following commands. Normal gait. Good hand eye coordination. SKIN: Warm, dry and pink. No soft tissue eruptions or trauma noted. HEENT: Atraumatic and normocephalic. No erythema or tenderness over the frontal maxillary sinuses. External ears are nontender. Tympanic membranes were not erythematous or edematous. PERRLA. Sclera white and conjunctiva pink. No drainage from naris but mild audible congestion. Oral cavity moist and pink. Airway patent. Pharynx is nonerythematous or edematous. Speech normal and clear. No lymphadenopathy. Trachea midline. No jugular venous distention. No carotid bruits. BACK: No tenderness over the bony spine. No CVA tenderness. THORAX: Lungs sounds are clear to auscultation with decreased air movement primarily on the left. Symmetrical chest wall movements. No wheezing, rales or rhonchi. No crepitus, tenderness, subcutaneous air or deformities noted. No increased respiratory effort or rate. HEART: Regular rate and rhythm. No gallops, rubs or murmurs are appreciated. ABDOMEN: Flat, soft and nontender. Positive bowel sounds in all quadrants. No guarding, rigidity or organomegaly. EXTREMITIES: Moves all extremities well on command and with purpose. All distal neurovascular statuses are intact and equal bilaterally. No calf tenderness or cords. ED Course: Patient is assessed as noted above. Patient's medication list was reviewed. Laboratory Testing: Test 09/30/17 13:00 09/30/17 13:03 09/30/17 15:00 Range/Units White Blood Count 4.27 4.8-10.8 K/uL Red Blood Count 4.44 4.2-5.4 M/uL Hemoglobin 11.9 12.0-16.0 g/dL Hematocrit 37.3 37-47 % Mean Corpuscular Volume 84.0 80-100 fL Mean Corpuscular Hemoglobin 26.8 25-34 pg Mean Corpuscular Hemoglobin Concent 31.9 32-36 g/dl Platelet Count 252 130-400 K/uL Mean Platelet Volume 9.8 7.4-10.4 fL Neutrophils (%) (Auto) 67.5 % Lymphocytes (%) (Auto) 19.2 % Monocytes (%) (Auto) 8.4 % Eosinophils (%) (Auto) 4.7 % Basophils (%) (Auto) 0.2 % Neutrophils # (Auto) 2.88 1.4-6.5 K/uL Lymphocytes # (Auto) 0.82 1.2-3.4 K/uL Monocytes # (Auto) 0.36 0.11-0.59 K/uL Eosinophils # (Auto) 0.20 0-0.5 K/uL Basophils # (Auto) 0.01 0-0.2 K/uL RDW Standard Deviation 45.4 36.4-46.3 fL RDW Coefficient of Variation 14.7 11.5-14.5 % Immature Granulocyte % (Auto) 0.0 % Immature Granulocyte # (Auto) 0.00 0.00-0.02 K/uL Prothrombin Time 9.9 9.0-12.0 SECONDS Prothromb Time International Ratio 0.9 0.9-1.1 Sodium Level 136 136-145 mmol/L Potassium Level 3.6 3.5-5.1 mmol/L Chloride Level 104 98-107 mmol/L Carbon Dioxide Level 25 21-32 mmol/L Anion Gap 7.0 3-11 mmol/L Blood Urea Nitrogen 7 7-18 mg/dl Creatinine 0.79 0.60-1.20 mg/dl Est Creatinine Clear Calc Drug Dose 95.4 ml/min Estimated GFR () 99.8 Estimated GFR (Non- 86.1 BUN/Creatinine Ratio 8.5 10-20 Random Glucose 92 70-99 mg/dl Calcium Level 8.9 8.5-10.1 mg/dl Total Bilirubin 0.3 0.2-1 mg/dl Aspartate Amino Transf (AST/SGOT) 46 15-37 U/L Alanine Aminotransferase (ALT/SGPT) 50 12-78 U/L Alkaline Phosphatase 105 45-117 U/L Total Protein 7.4 6.4-8.2 gm/dl Albumin 3.0 3.4-5.0 gm/dl Globulin 4.4 2.5-4.0 gm/dl Albumin/Globulin Ratio 0.7 0.9-2 Bedside D-Dimer > 450 0-450 ng/mlFEU Bedside Troponin I < 0.030 0-0.045 ng/ml Urine Color YELLOW Urine Appearance CLEAR CLEAR Urine pH 7.0 4.5-7.5 Urine Specific [place] 1.019 1.000-1.030 Urine Protein NEG NEG Urine Glucose (UA) NEG NEG Urine Ketones NEG NEG Urine Occult Blood NEG NEG Urine Nitrite NEG NEG Urine Bilirubin NEG NEG Urine Urobilinogen NEG NEG Urine Leukocyte Esterase SMALL NEG Urine WBC (Auto) 1-5 0-5 /hpf Urine RBC (Auto) 0-4 0-4 /hpf Urine Hyaline Casts (Auto) 1-5 0-5 /lpf Urine Epithelial Cells (Auto) 10-20 0-5 /lpf Urine Bacteria (Auto) NEG NEG Because of her symptoms of reproducible chest pain, shortness of breath and hypoxia and an elevated d-dimer chest CTA was performed and showed no acute aortic pathology, no evidence of pulmonary thromboembolic disease, patchy multifocal multilobular distribution of groundglass opacites suggestive of infectious or inflammatory pneumonitis with areas of tree-in-bud nodularity of the lung bases suggestive of associated infectious bronchitis, mild right hilar adenopathy, moderate right lobe prominence centrilobular emphysema and coronary artery disease. EKG: Was read by myself and reviewed with Dr. reina; shows normal sinus rhythm with a ventricular rate of 65 bpm. Normal axis and intervals. There was mild T -wave abnormalities in the anterior leads but when this was compared to previous no acute changes was noted. Patient was hydrated with normal saline and she initially received an albuterol/ Atrovent nebulizer breathing treatment; initially patient was offered pain medications for her chest discomfort and she refused. During her stay in the emergency department she reports that she is having some back pain; she reports this is her chronic pain for sitting too long and requested pain medication. She reports at home she rehabs 5 mg of OxyIR and I ordered 5 mg of OxyIR by mouth. Additionally after most of her laboratory tests were complete she received 750 mg of Levaquin IV for antibiotic coverage. Auditory oxygen saturation testing; patient oxygen decreased from 98% to 91% during ambulation Patient was reassessed multiple times during her stay in the emergency department. Patient's case was reviewed with Dr. Reina; we agreed on diagnostic approach, treatment. For her plan it was originally discussed the discharge the patient with close follow-up with her die cutter diamond but because of her ongoing symptoms we discussed observation/admission with the patient and case management and she elected to to be brought in the hospital. Patient's case was consulted with case management and Ms. Jodie Doan PA-C, hospitalist for medical observation/admission. Patient was educated about today's findings. Clinical Impression: Acute bronchitis. Pneumonitis. Chest pain. Decision-Making: Initially my differential diagnosis I considered bronchitis, pneumonia, pulmonary embolism, pericarditis, myocarditis, acute coronary syndrome and other causes. Disposition and Plan: Patient be brought in the hospital by Mrs. Doan; please see her notes and orders for final disposition and plan.
[2017-10-01] MEDS ORDERED: NURSING VERBAL MED ORDER ONE (15:30)
[2017-10-01] MEDS: POLYETHYLENE (MIRALAX) 17 GM PACK PO SCH (20:08)
[2017-10-01] MEDS: AMITRIPTYLINE HCL 10 MG TAB PO SCH (20:10)
[2017-10-01] MEDS: ACETAMINOPHEN 325 MG TAB PO PRN (20:11)
--- NOTE | 2017-10-01 21:33 | DIAGNOSTIC IMAGING REPORT ---
ABDOMEN 2 VIEWS CLINICAL HISTORY: 52 years-old Female presenting with eval for distension ? obstipation, abdominal pain and distention. TECHNIQUE: Upright and supine views of the abdomen were obtained. COMPARISON: 09/20/[address] from 01/29/2017. FINDINGS: Moderate stool burden in the right colon. No bowel obstruction. No pneumoperitoneum, pneumatosis, or portal venous gas. Allowing for bowel gas and stool, punctate calcification projects over the left kidney suggesting calculus. Stable pelvic phleboliths. Posterior lumbar fusion of L5-S1 with L5 laminectomy defect and interbody spacer. Lung bases clear. IMPRESSION: 1. Moderate stool burden in the right colon. No bowel obstruction. 2. Left nephrolithiasis. Electronically signed by: Zach Colon M.D. 10/01/2017 9:32 PM Dictated Date/Time: 10/01/2017 9:30 PM
[2017-10-01] MEDS: ZOLPIDEM TARTRATE 10 MG TAB PO SCH (21:40)
[2017-10-02] VITALS: O2SAT 96
[2017-10-02] MEDS: METHYLPREDNISOLONE IV 40 MG in SYRINGE 0 ML IV SCH ×2 (03:26→10:47)
[2017-10-02] MEDS: LEVOTHYROXINE 50 MCG TAB PO SCH (06:26)
[2017-10-02] MEDS: ALBUT/IPRATROP 3MG/0.5MG NEB 3 ML VIAL INH SCH ×3 (07:21→11:13)
[2017-10-02 07:29] LABS: HEMATOCRIT 33.1 % (37-47); MEAN CELL VOLUME 83.4 fL (80-100); MEAN CORPUSCULAR HEMOGLOBIN 27.7 pg (25-34); MEAN CORPUSCULAR HGB CONC 33.2 g/dl (32-36); MEAN PLATELET VOLUME 9.7 fL (7.4-10.4); PLATELET COUNT 262 K/uL (130-400); RED CELL DISTRIBUTION WIDTH CV 14.9 % (11.5-14.5); RED CELL DISTRIBUTION WIDTH SD 45.5 fL (36.4-46.3); WHITE BLOOD COUNT 12.72 K/uL (4.8-10.8)
[2017-10-02 07:40] VITALS: BP 134/80; PULSE 65; TEMP 36.8; O2SAT 97
[2017-10-02 07:59] LABS: CALCIUM 9.3 mg/dl (8.5-10.1); CREATININE 0.75 mg/dl (0.60-1.20)
[2017-10-02] MEDS: LISINOPRIL 40 MG TAB PO SCH (08:10)
[2017-10-02] MEDS: LEVOFLOXACIN / D5W 750 MG in PREMIXED IN D5W 150 ML IV SCH (08:10)
[2017-10-02] MEDS: GABAPENTIN 100 MG CAP PO SCH (08:10)
[2017-10-02] MEDS: PANTOprazole SOD 40 MG TAB PO SCH (08:10)
[2017-10-02] MEDS: ASPIRIN 81 MG ECTAB PO SCH (08:10)
[2017-10-02] MEDS: FLUOXETINE HCL 20 MG CAP PO SCH (08:11)
[2017-10-02] MEDS: GABAPENTIN 800 MG TAB PO SCH (08:11)
[2017-10-02] MEDS: POLYETHYLENE (MIRALAX) 17 GM PACK PO SCH (08:11)
[2017-10-02] MEDS: AMLODIPINE BESYLATE 5 MG TAB PO SCH (08:12)
[2017-10-02] MEDS: HEPARIN SOD 5000 UNIT/0.5 ML CARP SQ SCH (08:13)
[2017-10-02 08:30] VITALS: O2SAT 97
[2017-10-02] MEDS ORDERED: POLY1POW2 PO (10:31)
[2017-10-02] MEDS ORDERED: SENN-61 PO (10:31)
[2017-10-02] MEDS ORDERED: LEVO-18 PO (10:31)
--- NOTE | 2017-10-02 10:35 | Discharge Instructions ---
Discharge Instructions Date of Service Oct 02, 2017. Admission Reason for Admission: Bronchiolitis, Pneumonia Discharge Discharge Diagnosis / Problem: atypical pneumonia Discharge Goals Goal(s): Diagnostic testing, Therapeutic intervention Activity Recommendations Activity Limitations: as noted below Lifting Limitations: gradually increase as tolerated . Current Hospital Diet Patient's current hospital diet: Regular Diet Discharge Diet Recommended Diet: Regular Diet Pending Studies Studies pending at discharge: no Medical Emergencies . Who to Call and When: Medical Emergencies: If at any time you feel your situation is an emergency, please call 911 immediately. . Non-Emergent Contact Non-Emergency issues call your: Primary Care Provider Call Non-Emergent contact if: temperature is above 101, your pain is unusual for you . . "Provider Documentation" section prepared by Ugo Jose. . Drop Wire Aligner Recommendations Drop Wire Aligner Recommendations: take laxatives twice a day to have two bowel movements daily, consider adding fiber agent to you daily routine if you have two bowel movements daily for about a week you may consider reducing laxatives to keep one bowel movement daily since you had high dose steroids during your hospital stay we will taper your steroid back toward your home dose
[2017-10-02] MEDS ORDERED: PRED10TA PO (10:39)
[2017-10-02 11:07] VITALS: BP 134/80; PULSE 65; TEMP 36.8; O2SAT 97
--- NOTE | 2017-10-02 17:19 | Discharge Summary ---
Discharge Summary Date of Service Oct 02, 2017. Discharge Summary Admission Date: Sep 30, 2017 at 16:51 Discharge Date: Oct 02, 2017 Discharge Disposition: Home Principal Diagnosis: atypical pneumonia Immunizations: Have You Had Influenza Vaccine: Yes History of Tetanus Vaccine?: Yes History of Pneumococcal: Yes History of Hepatitis B Vaccine: No Medication Reconciliation New Medications: Levofloxacin (Levaquin) 750 Mg Tab 1 TAB PO DAILY for 10 Days, #11 TAB Prednisone Tab (Prednisone) 10 Mg Tab 10 MG PO UD, #20 TAB 4 pills a day x 2 d then 3 pills a day x 2 d then 2 pills a day x 2 d then 1 pill a day x 2 d then resume home dose Senna (Senokot) 8.6 Mg Tab 1 TAB PO BID, #60 TAB 6 Refills Changed Medications: Polyethylene Glycol 3350 (Bulk (Polyethylene Glycol 3350) 1 Pow Pow 17 GM PO BID for 30 Days, #1054 GM 11 Refills (Changed from: Polyethylene Glycol 3350 (Miralax) 1 Pow Pow 17 Gm PO DAILY PRN Constipation #255 GM) Continued Medications: Albuterol Hfa (Ventolin Hfa) 200 Puffs/68596 Mcg Aers 2-4 PUFFS INH Q6H PRN for Shortness of Breath, #1 INHALER Amitriptyline Hcl (Elavil) 10 Mg Tab 20 MG PO HS, TAB Amlodipine (Norvasc) 5 Mg Tab 5 MG PO QAM, TAB Aspirin (Aspirin Ec) 81 Mg Tab 81 MG PO QAM Fluoxetine Hcl (Prozac) 40 Mg Cap 80 MG PO QAM Folic Acid (Folic Acid) 1 Mg Tab 1 MG PO QAM Gabapentin (Neurontin) 100 Mg Cap 100 MG PO TID, CAP Gabapentin (Neurontin) 800 Mg Tab 800 MG PO TID, TAB Levothyroxine Sodium (Levothyroxine Sodium) 50 Mcg Tab 1 TAB PO QAM, TAB 3 Refills Lisinopril (Prinivil) 40 Mg Tab 40 MG PO QAM, TAB Oxycodone Ir (Roxicodone Ir) 5 Mg Tab 5 MG PO Q4H PRN for Pain, TAB Prednisone (Prednisone) 5 Mg Tab 1 TAB PO QAM, TAB please do not restart until after your prednisone taper Zolpidem Tartrate (Ambien) 10 Mg Tab 10 MG PO HS, TAB Discharge Exam Review of Systems: Constitutional: No fever, No chills Respiratory: + cough, No sputum, No shortness of breath, No dyspnea on exertion Cardiovascular: No chest pain, No orthopnea Abdomen: No pain, No nausea, No vomiting, No diarrhea Neurologic: No memory loss, No paralysis Physical Exam: General Appearance: WD/WN, no apparent distress Eyes: normal inspection, sclerae normal Neck: supple, no JVD Respiratory/Chest: chest non-tender, lungs clear, normal breath sounds Cardiovascular: regular rate, rhythm, no murmur Abdomen / GI: normal bowel sounds, non tender, soft Hospital Course 52 y/o female with concern for multifocal pneumonia( mycoplasma), has a history of the same and chronic lung disease/COPD also has a PMHx of SLE, Sjogrens, COPD , Atrial Tachycardia S/P Ablation, Hypothyroidism, HTN, Chronic Hepatitis/ Portal Fibrosis, 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, Gastroparesis, Multifocal Pneumonia vs Pneumonitis: Immunocompromised on chronic steroids for SLE previous video swallow has no signs of a of aspiration but mentions esophageal dysmotility that is either mild or moderate - so less concern for aspiration pneumonia however will require a diet of slippery foods and frequent sips between bites given her Sjogren's -Levaquin 750 mg po to complete 10 day course SLE with Recent Exacerbation and Chronic Pain and Sjogrens: -States she completed a steroid taper approximately 2 weeks ago for SLE flair; no longer on CellCept but is now maintained on prednisone -resuming prednisone for inflammation in lung to return to low dose over next week -Amitriptyline 20 mg daily and Gabapentin 900 mg TID; Roxicodone 5 mg PRN COPD without Exacerbation prednisone and Duonebs HTN:-Norvasc 5 mg daily and lisinopril 40 mg daily Hypothyroidism:-Synthroid 50 mcg daily Constipation seen on x ray, will add bid miralax and senna encourage bulk forming agents Total Time Spent: Greater than 30 minutes This includes examination of the patient, discharge planning, medication reconciliation, and communication with other providers. Discharge Instructions Please refer to the electronic Patient Visit Report (Discharge Instructions) for additional information.
--- NOTE | 2017-10-05 13:15 | EDITING REQUIRED CODING QUERY ---
CODING QUERY To promote full compliance with coding requirements relating to patient care, provider participation is requested in all cases of signal inspector uncertainty. Please assist us with the question(s) below: Coding Question(s): There is mention of concern for multifocal pneumonia (mycoplasma) and there is also mention of aspiration pneumonia that does not seem to be ruled-out completely. The Principal Diagnosis is Atypical Pneumonia. Please clarify below, in your clinical opinion. ( ) Possible Pneumonia due to Mycoplasma and/or Possible Aspiration Pneumonia ( xxx ) Possible Pneumonia due to Mycoplasma with No Possible Aspiration Pneumonia ( ) Possible Aspiration Pneumonia with No Possible Pneumonia due to Mycoplasma ( ) Atypical Pneumonia Not Specified Physician's Response(s): Thank you Latisha Wisdom Principal Diagnosis: "_that condition established after study, to be chiefly responsible for occasioning the admission of the patient to the hospital for care." Co-Existing Principal Diagnosis: "_when two or more diagnoses equally meet the criteria for principal diagnosis as determined by the circumstances of admission, diagnostic work up, and/or therapy provided, and the Alphabetic Index, Tabular List, or another coding guideline does not provide sequencing direction, any one of the diagnoses may be sequenced first." "When the physician has documented what appears to be a current diagnosis in the body of the record, but has not included the diagnosis in the final diagnostic statement, the physician should be asked whether the diagnosis should be added." (Source [facility] 2 QTR90. p3-4)
== END 2017-10-02 14:02 | disposition home or self-care (01) | DRG 190 ==
LOC: C.EDB 12:06 → C.4E 16:51 → EDBEDREQ 16:51 → ENRESERV 17:02
PROVIDERS: ADMIT Internal Medicine; ATTEND Internal Medicine
DX: J44.0 Chronic obstructive pulmonary disease with (acute) lower respiratory infection (principal); J15.7 Pneumonia due to Mycoplasma pneumoniae; K59.00 Constipation, unspecified; M32.9 Systemic lupus erythematosus, unspecified; M35.00 Sjogren syndrome, unspecified; E03.9 Hypothyroidism, unspecified; I10 Essential (primary) hypertension; K73.9 Chronic hepatitis, unspecified; K74.0 Hepatic fibrosis; G89.29 Other chronic pain; Z51.81 Encounter for therapeutic drug level monitoring; Z79.899 Other long term (current) drug therapy; Z79.52 Long term (current) use of systemic steroids; Z79.82 Long term (current) use of aspirin; Z87.01 Personal history of pneumonia (recurrent); Z86.79 Personal history of other diseases of the circulatory system; Z98.890 Other specified postprocedural states; Z87.891 Personal history of nicotine dependence; Z88.8 Allergy status to other drugs, medicaments and biological substances; Z88.1 Allergy status to other antibiotic agents; Z88.0 Allergy status to penicillin; Z82.49 Family history of ischemic heart disease and other diseases of the circulatory system; Z84.1 Family history of disorders of kidney and ureter

== ENCOUNTER → 2017-10-06 | Outpatient (CLI) | payer OTHER ==
[~2017-10-06] MED LIST changes: -CHOL100010 PO; +LEVO-18 PO; -LORA-741 PO; +POLY1POW2 PO; -POLY335019 PO; +PRED10TA PO; +SENN-61 PO
[2017-10-06 13:44] LABS: BLOOD UREA NITROGEN 15 mg/dl (7-18); CALCIUM 8.6 mg/dl (8.5-10.1); CARBON DIOXIDE 23 mmol/L (21-32); CREATININE 0.88 mg/dl (0.60-1.20); GLUCOSE 85 mg/dl (70-99); POTASSIUM 3.1 mmol/L (3.5-5.1); SODIUM 137 mmol/L (136-145)
[2017-10-06 13:54] LABS: PHOSPHORUS 3.4 mg/dl (2.5-4.9)
== END | disposition home or self-care (01) ==
LOC: C.LAB1850 09:32
PROVIDERS: ATTEND Internal Medicine Nephrology
DX: E03.9 Hypothyroidism, unspecified (principal); I10 Essential (primary) hypertension

== ENCOUNTER → 2017-10-20 | Day surgery (SDC) | payer OTHER ==
[2017-09-23 14:16] VITALS: Ht 175.3 cm; Wt 81.8 kg
[~2017-10-20] VITALS: Ht 175.3 cm; Wt 81.8 kg
[~2017-10-20] MED LIST changes: +BUPIVACAINE 0.25% 2.5MG/ML PF 10 ML VIAL ONE; -LEVO-18 PO; +LIDOCAINE HCL 1% 20 ML VIAL ONE
[2017-10-20 12:58] VITALS: BP 116/79; PULSE 68; TEMP 36.4; O2SAT 100
== END | disposition home or self-care (01) ==
LOC: X.SURG 10:51
PROVIDERS: ATTEND Physical Medicine & Rehabilitation
DX: M54.5 Low back pain (principal); Z79.899 Other long term (current) drug therapy; Z53.8 Procedure and treatment not carried out for other reasons

== ENCOUNTER → 2017-11-01 | Day surgery (SDC) | payer OTHER ==
[2017-10-22 14:46] VITALS: Ht 175.3 cm; Wt 81.8 kg
[~2017-11-01] VITALS: Ht 175.3 cm; Wt 81.8 kg
[~2017-11-01] MED LIST changes: -POLY1POW2 PO; -PRED10TA PO; -SENN-61 PO; -ZOLP10TA PO
--- NOTE | 2017-11-01 14:46 | [facility] Post Operative Brief Note ---
Immediate Operative Summary Operative Date Nov 01, 2017. Pre-Operative Diagnosis 1. Bilateral L4-L5 facet arthropathy 2. Underlying L5-S1 fusion Post-Operative Diagnosis Same Procedure(s) Performed Bilateral L4-[address] Ervin Martinez Pst Manager Surgeon(s) None Estimated Blood Loss 0 Findings Consistent with Post-Op Diagnosis Specimens NA Drains None Anesthesia Type Local Complication(s) none Disposition Disposition:
[2017-11-01 14:47] VITALS: TEMP 36.4
--- NOTE | 2017-11-01 14:48 | Discharge Instructions ---
Discharge Instructions Date of Service Nov 01, 2017. Visit Reason for Visit: Low Back Pain Discharge Discharge Diagnosis / Problem: low back pain Discharge Goals Goal(s): Decrease discomfort, Improve function Activity Recommendations Activity Limitations: resume your previous activity Anesthesia . Post Anesthesia Instructions: If you have had General Anesthesia or IV Sedation: * Do not drive today. * Resume driving when surgeon permits. * Do not make important decisions or sign legal documents today. * Call surgeon for: 1. Temperature elevations greater than 101 degrees F. 2. Uncontrollable pain. 3. Excessive bleeding. 4. Persistent nausea and vomiting. 5. Medication intolerance (nausea, vomiting or rash). * For nausea and vomiting use only clear liquids such as: tea, soda, bouillon until nausea subsides, then gradually increase diet as tolerated. * If you have any concerns or questions, call your surgeon's office. If physician is unavailable and it is an emergency, call 911 or go to the nearest emergency room. . Diet Recommendations Recommended Home Diet: no limitations Procedures Procedures Performed: Bilateral L4-5 Radio Frequency Denervation Pending Studies Studies pending at discharge: no Medical Emergencies . Who to Call and When: Medical Emergencies: If at any time you feel your situation is an emergency, please call 911 immediately. . Non-Emergent Contact Non-Emergency issues call your: Specialist . . "Provider Documentation" section prepared by Everett Martinez. .
[2017-11-01 15:13] VITALS: BP 131/80; PULSE 66; O2SAT 96
--- NOTE | 2017-11-01 15:42 | OPERATIVE REPORT ---
DATE OF OPERATION: 11/01/2017 PREOPERATIVE DIAGNOSES: 1. Bilateral L4-L5 facet arthropathy. 2. Underlying L5-S1 fusion. HISTORY OF PRESENT ILLNESS: Patient is a 52-year-old white female that underwent bilateral L4-L5 medial branch blocks with 90% pain relief. She presents today for denervation to provide her with longer lasting relief of pain. PHYSICAL EXAMINATION: Pleasant female, seated comfortably. She had a slight reproduction of pain with extension as well as rotation. She had normal lower extremity strength. CONSENT: Verbal and written consent were obtained from the patient. Risks and benefits were reviewed. Risks include but are not limited to abscess and allergic reaction. She wishes to proceed. DESCRIPTION OF PROCEDURE: Patient was taken back to the special procedures room of [facility]. She was maintained in a prone position. Backside was cleansed with Betadine x3 and a dry sterile dressing was applied. Fluoroscope was used to identify the right L4 transverse process and the right L5 transverse process which was partially obstructed by the hardware, but more obtainable with an oblique view. Overlying skin was anesthetized with 1.5 mL of lidocaine 1% with a 25 gauge 1.5-inch needle at each site. A 22 gauge 10 cm Naila needle contacted bone on each site being put in the midpoint of the L4 transverse process and at the L5 transverse process. She underwent sensory stimulation that provoked low back pain with sensitivity of 0.2 volts and 0.3 volts respectively at the L4 level and L5 level. Motor stimulation provoked robust paraspinal spasms at L4 less so at the L5, nothing radiating down the legs. She underwent anesthetization with 1 mL lidocaine 1% at each site and then underwent radiofrequency denervation. Initially, she reproduced painful sensation down her leg at left L4. It was maneuvered again, performed a painful stimulation in the leg. It was maneuvered a third time. She had tolerated at 80 degrees 100 seconds x2 and followed up by bupivacaine 0.25% 1 mL. The left L5 transverse process region was then denervated x2 then followed up with bupivacaine 0.25% 1 mL. The right L4 transverse process junction and the right L5 transverse process junction was then fluoroscopically identified. Overlying skin anesthetized 1.5 mL of lidocaine 1% with a 25 gauge 1.5-inch needle and then a 22 gauge 10 cm Naila needle was placed. Sensory stimulation was sensitive to 0.2 volts at each site. Motor stimulation provoked local paraspinal twitching, more so at L4 than 5 but nothing radiating down the leg. She underwent additional anesthetization at each site with 1 mL lidocaine 1% and then underwent radiofrequency denervation 80 degrees x100 seconds x2 at each site and this was anesthetized with 1 mL of bupivacaine 0.25% at each site. Procedure was well tolerated. DISPOSITION: She is taken out into the discharge recovery room and reports she is doing well, has some soreness to the back but no significant pain, has no issues of weakness, tingling or burning down the legs. She will follow up in the office in 4 weeks' time. I attest to the content of the Intraoperative Record and any orders documented therein. Any exception s are noted below.
== END | disposition home or self-care (01) ==
LOC: X.SURG 13:09
PROVIDERS: ATTEND Physical Medicine & Rehabilitation
DX: M12.88 Other specific arthropathies, not elsewhere classified, other specified site (principal); Z98.1 Arthrodesis status

== ENCOUNTER → 2017-12-01 | Outpatient (CLI) | payer OTHER ==
[~2017-12-01] MED LIST changes: -BUPIVACAINE 0.25% 2.5MG/ML PF 10 ML VIAL ONE; -LIDOCAINE HCL 1% 20 ML VIAL ONE
[2017-12-01 14:03] LABS: BASO % 0.2 %; BASO ABS # 0.02 K/uL (0-0.2); EOS % 1.1 %; EOS ABS # 0.11 K/uL (0-0.5); HEMATOCRIT 37.6 % (37-47); HEMOGLOBIN 12.4 g/dL (12.0-16.0); IG# 0.03 K/uL (0.00-0.02); LYMPH % 10.9 %; MEAN CELL VOLUME 83.2 fL (80-100); MEAN CORPUSCULAR HEMOGLOBIN 27.4 pg (25-34); MEAN PLATELET VOLUME 10.2 fL (7.4-10.4); MONO % 9.3 %; MONO ABS # 0.94 K/uL (0.11-0.59); NEUT % 78.2 %; NEUT ABS # 7.92 K/uL (1.4-6.5); PLATELET COUNT 303 K/uL (130-400); RED CELL DISTRIBUTION WIDTH CV 15.4 % (11.5-14.5); RED CELL DISTRIBUTION WIDTH SD 46.6 fL (36.4-46.3); WHITE BLOOD COUNT 10.12 K/uL (4.8-10.8)
[2017-12-01 14:42] LABS: ALBUMIN 3.4 gm/dl (3.4-5.0); ALKALINE PHOSPHATASE 100 U/L (45-117); ALT/SGPT 75 U/L (12-78); AST/SGOT 66 U/L (15-37); BLOOD UREA NITROGEN 9 mg/dl (7-18); CALCIUM 9.4 mg/dl (8.5-10.1); CARBON DIOXIDE 26 mmol/L (21-32); CHOLESTEROL 188 mg/dl (0-200); CREATININE 0.87 mg/dl (0.60-1.20); GLUCOSE 95 mg/dl (70-99); LDL CHOLESTEROL CALCULATED 101 mg/dl; POTASSIUM 3.9 mmol/L (3.5-5.1); SODIUM 136 mmol/L (136-145); TOTAL PROTEIN 7.6 gm/dl (6.4-8.2)
[2017-12-02 08:07] LABS: HEMOGLOBIN A1C 6.2 % (4.5-5.6)
== END | disposition home or self-care (01) ==
LOC: C.LAB1850 12:54
PROVIDERS: ATTEND Internal Medicine
DX: R14.0 Abdominal distension (gaseous) (principal); E87.6 Hypokalemia; K90.0 Celiac disease; R53.83 Other fatigue; R73.9 Hyperglycemia, unspecified; I65.29 Occlusion and stenosis of unspecified carotid artery

== ENCOUNTER → 2018-01-27 | Outpatient (CLI) | payer OTHER ==
[~2018-01-27] MED LIST changes: -AMLO-110 PO; +AMLO5TAB3 PO; +CHOL2000 PO; +CIPR-255 PO; +METR-163 PO; +OXYC-90 PO; -OXYC1TAB3 PO; +POTA1CAP2 PO; +SULF800T23 PO
--- NOTE | 2018-01-27 13:46 | DIAGNOSTIC IMAGING REPORT ---
UPPER GI SERIES AND SMALL BOWEL FOLLOW-THROUGH UTILIZING GASTROVIEW CLINICAL HISTORY: Abdominal pain. Weight gain. Constipation. Diverticulitis. COMPARISON STUDY: CT of the abdomen and pelvis December 09, 2017 and abdominal series December 20, 2017. FLUOROSCOPY TIME: 3.1 minutes. TECHNIQUE: A bid clerk KUB was obtained. Upper GI series followed by small bowel follow-through was performed following ingestion of 540 cc of Gastroview. FINDINGS: 29 fluoroscopic images were obtained. Printing Plate Setter KUB demonstrates postoperative findings within the lumbosacral spine with a normal bowel gas pattern. A 2 mm left renal calculus is noted. A phlebolith within the right hemipelvis is noted. Esophageal motility is normal. No mass or stricture is identified although mucosal detail is diminished on this examination. Gastric fold pattern is grossly unremarkable as well. Duodenum was unremarkable. No reflux was elicited. There is no hiatal hernia. Jejunal and ileal fold patterns were normal. Transit time to the cecum was normal at 45 minutes. No small bowel mucosal abnormalities are identified although mucosal detail is diminished on this examination. IMPRESSION: 1. Unremarkable single contrast upper GI series and small bowel follow-through although mucosal detail diminished on this exam. 2. No evidence for a small bowel obstruction. 3. 2 mm left renal calculus. Electronically signed by: Bhargav Kwan M.D. 01/27/2018 1:45 PM Dictated Date/Time: 01/27/2018 1:41 PM
== END | disposition home or self-care (01) ==
LOC: C.RAD 09:50
PROVIDERS: ATTEND Colon & Rectal Surgery
DX: K59.09 Other constipation (principal); R10.9 Unspecified abdominal pain; R63.5 Abnormal weight gain; N20.0 Calculus of kidney

== ENCOUNTER → 2018-02-02 | Outpatient (CLI) | payer OTHER ==
--- NOTE | 2018-02-02 09:18 | DIAGNOSTIC IMAGING REPORT ---
BARIUM ENEMA AIR ROUTINE CLINICAL HISTORY: GASTROGRAFIN, DIVERTICULITIS, CONSTIPATIONpain COMPARISON STUDY: None FLUOROSCOPY TIME: 1.3 minutes. FINDINGS: Patient had discomfort during the procedure. Patient was unable to tolerate balloon insufflation. The sigmoid colon appears unremarkable. Patient declined to have the entire exam with the contrast column extending exclusively to the distal descending colon. IMPRESSION: 1. Limited study as the patient refused to continue with the examination and complained of discomfort. 2. Unremarkable sigmoid colon. 3. Remainder the colon was not evaluated as the patient refused to continue the exam. 4. Colonoscopy is suggested. The above report was generated using voice recognition software. It may contain grammatical, syntax or spelling errors. Electronically signed by: Raza Flores M.D. 02/02/2018 9:17 AM Dictated Date/Time: 02/02/2018 9:14 AM
== END | disposition home or self-care (01) ==
LOC: C.RAD 08:25
PROVIDERS: ATTEND Colon & Rectal Surgery
DX: K59.09 Other constipation (principal); K57.92 Diverticulitis of intestine, part unspecified, without perforation or abscess without bleeding

== ENCOUNTER 2018-09-15 13:23 | Inpatient (IN) ==
--- NOTE | 2018-09-15 10:42 | Anesthesiology Consultation ---
Date of Service September 15, 2018 Assessment & Plan (1) Encounter for pre-operative examination: Chart Review Chart Review: Acceptable Risk for Surgery and Patient NOT seen in Pre Admission Testing Consults Requested none History Surgery Operation Date: 09/15/18 09:35 Proposed Procedures p Right Proximal Humerus Fracture Open Reduction Internal Fixation - Stuart Aguirre DO Height/Weight Height: 1.75 m Weight: 79 kg Allergies Allergy/AdvReac Type Severity Reaction Status Date / Time cefazolin Allergy Intermediate ITCHING Verified 08/10/18 11:00 Penicillins Allergy Intermediate passes out Verified 08/10/18 11:00 as a child vancomycin Allergy Intermediate red man Verified 08/10/18 11:00 syndrome belimumab AdvReac Unknown N/V Verified 08/10/18 11:00 sorbitan esters AdvReac Unknown N/V Verified 08/10/18 11:00 Medications Home Medications Medication Instructions Recorded Confirmed Last Taken albuterol sulfate [Ventolin HFA] 2 puff INHALATION Q4 PRN 07/27/18 08/24/18 Unknown amitriptyline 20 mg PO HS 07/27/18 08/24/18 08/09/18 amlodipine 5 mg PO HS 07/27/18 08/24/18 08/08/18 aspirin 81 mg PO QAM 07/27/18 08/24/18 08/08/18 cholecalciferol (vitamin D3) 5,000 unit PO QAM 07/27/18 08/24/18 08/08/18 [Vitamin D3] fluoxetine 80 mg PO QAM 07/27/18 08/24/18 08/08/18 folic acid 1 mg PO QAM 07/27/18 08/24/18 08/08/18 hydrocortisone acetate 1 applic VT BID PRN 07/27/18 08/24/18 Unknown ipratropium-albuterol 3 ml INHALATION QID PRN 07/27/18 08/24/18 Unknown lisinopril 40 mg PO HS 07/27/18 08/24/18 08/08/18 lorazepam 0.5 mg PO BID PRN 07/27/18 08/24/18 08/08/18 nystatin 1 applic TOPICAL BID PRN 07/27/18 08/24/18 08/08/18 nystatin 5 ml BUCCAL UD PRN 07/27/18 08/24/18 08/08/18 omeprazole 20 mg PO HS 07/27/18 08/24/18 08/09/18 ondansetron 4 mg PO Q6 PRN 07/27/18 08/24/18 Unknown oxycodone 5 mg PO QID PRN 07/27/18 08/24/18 08/09/18 polyethylene glycol 3350 [Miralax] 17 g PO HS 07/27/18 08/24/18 08/08/18 prednisone 5 mg PO QAM 07/27/18 08/24/18 08/09/18 zolpidem 10 mg PO HS PRN 07/27/18 08/24/18 08/09/18 diclofenac potassium 50 mg PO Q8H PRN #30 tab 08/24/18 Unknown gabapentin [Neurontin] 900 mg PO TID 08/24/18 08/24/18 Unknown oxycodone [Roxicodone] 5 mg PO Q6H PRN #12 tab 08/24/18 Unknown Past Medical History Medical History Lupus (Chronic) Hyponatremia Immunocompromised patient Leukocytosis (Acute) Shortness of breath Anemia Anxiety Celiac disease Chronic back pain Chronic constipation Chronic steroid use prednisone for lupus Depression Fibromyalgia GERD (gastroesophageal reflux disease) Hyperlipidemia Hypertension Kidney stones On home oxygen therapy 2L n/c Osteoarthritis Supraventricular tachycardia s/p ablation Past Family History Family History Mother Family hx colonic polyps Other No family history of adverse response to anesthesia Past Surgical History Surgical History History of section (Acute) H/O laparoscopy (Acute) History of cardiac radiofrequency ablation for SVT @ [facility] 2009; no service architect History of colonoscopy History of dilatation and curettage History of endoscopic sinus surgery History of esophagogastroduodenoscopy (EGD) History of hand surgery right hand History of laminectomy x2 History of lumbar spinal fusion hardware in place History of neck surgery left lymph node removal d/t englargement (benign) History of tonsillectomy and adenoidectomy History of tooth extraction all teeth Status post wrist surgery right wrist pin in place Past Anesthesia History No Hx of Anesthesia Complications and No Family Hx of Anesthesia Complications History of PONV No Motion Sickness Screening History of Motion Sickness: No Social History Smoking Status: Former smoker Hx Alcohol Use: No Hx Substance Use: No substance use type: does not use Exercise / Class Metabolic Activity II 4-5 Yardwork/Stairs/Walk up hill Testing Electrocardiogram Date: 09/13/18 Findings: + NSR @ (66) Normal sinus rhythm ST & T wave abnormality, consider anterior ischemia Abnormal ECG When compared with ECG of 30-SEP-2017 12:32, No significant change was found Confirmed by ERIN ESCUDERO ([id number]) on 09/13/2018 5:05:13 PM Chest X-Ray Date: 06/09/18 Findings: + NAD FINDINGS: The bones soft tissues and hemidiaphragms are normal. The c ardiomediastinal silhouette is normal. The lungs are clear. The pulmonary vasculature is normal. IMPRESSION: Negative chest.
[~2018-09-15 13:23] MED LIST changes: -AMIT10TA6 PO; -AMLO5TAB3 PO; -ASPI81TA28 PO; +CEFAZOLIN 2000MG 2,000 MG/15 ML SYR IV SCH; -CHOL2000 PO; -CIPR-255 PO; -FLV1 PO; -GABA-112 PO; -GABA800T PO; -LEVO50TA6 PO; -LISI40TA PO; +LR 15ML/HR IV SCH; -METR-163 PO; -OXYC-90 PO; -POTA1CAP2 PO; -PRED-301 PO; -PRZ/40 PO; -SULF800T23 PO; -VNTHFA/IN INH
[2018-09-15] MEDS ORDERED: BUPIVACAINE/EPINEPHRINE 0.5% MPF 1:200,000 30 ML VIAL ONE (14:02)
--- NOTE | 2018-09-15 14:41 | History & Physical Report ---
Date of Service September 15, 2018 Assessment & Plan (1) Closed fracture of right proximal humerus: We will proceed with an open reduction internal fixation of the right proximal humerus. Postoperatively she will be placed in a sling and kept overnight at the hospital for postop medical management. She will likely be discharged home the following morning. Present on Admission?: Yes History of Present Illness Primary Care Provider: Jairo Escobar MD Nargis is a pleasant 53-year-old female who slipped and fell on the ice 3 weeks ago. She went to the emergency room and radiographs demonstrated a moderately displaced right proximal humerus fracture. She was placed in the sling. She presented my office 3 weeks later. X-rays and CT scan were reviewed and it showed a mostly 2 part proximal humerus fracture with significant retroversion of the humeral head on the glenoid. We discussed operative and nonoperative treatment and after extensive discussions we elected to proceed with an open reduction internal fixation of the right proximal humerus for better alignment. Allergies Allergy/AdvReac Type Severity Reaction Status Date / Time cefazolin Allergy Intermediate ITCHING Verified 09/15/18 13:48 Penicillins Allergy Intermediate passes out Verified 09/15/18 13:48 as a child vancomycin Allergy Intermediate red man Verified 09/15/18 13:48 syndrome belimumab AdvReac Unknown N/V Verified 09/15/18 13:48 sorbitan esters AdvReac Unknown N/V Verified 09/15/18 13:48 Home Medications Home Medications Medication Instructions Recorded Confirmed Type albuterol sulfate [Ventolin HFA] 2 puff INHALATION Q4 PRN 07/27/18 09/15/18 History amitriptyline 20 mg PO HS 07/27/18 09/15/18 History amlodipine 5 mg PO HS 07/27/18 09/15/18 History aspirin 81 mg PO QAM 07/27/18 09/15/18 History cholecalciferol (vitamin D3) 5,000 unit PO QAM 07/27/18 09/15/18 History [Vitamin D3] fluoxetine 80 mg PO QAM 07/27/18 09/15/18 History folic acid 1 mg PO QAM 07/27/18 09/15/18 History hydrocortisone acetate 1 applic IN BID PRN 07/27/18 09/15/18 History ipratropium-albuterol 3 ml INHALATION QID PRN 07/27/18 09/15/18 History lisinopril 40 mg PO HS 07/27/18 09/15/18 History lorazepam 0.5 mg PO BID PRN 07/27/18 09/15/18 History nystatin 1 applic TOPICAL BID PRN 07/27/18 09/15/18 History nystatin 5 ml BUCCAL UD PRN 07/27/18 09/15/18 History omeprazole 20 mg PO HS 07/27/18 09/15/18 History ondansetron 4 mg PO Q6 PRN 07/27/18 09/15/18 History oxycodone 5 mg PO QID PRN 07/27/18 09/15/18 History polyethylene glycol 3350 [Miralax] 17 g PO HS 07/27/18 09/15/18 History prednisone 5 mg PO QAM 07/27/18 09/15/18 History zolpidem 10 mg PO HS PRN 07/27/18 09/15/18 History diclofenac potassium 50 mg PO Q8H PRN #30 tab 08/24/18 09/15/18 Rx gabapentin [Neurontin] 900 mg PO TID 08/24/18 09/15/18 History oxycodone [Roxicodone] 5 mg PO Q6H PRN #12 tab 08/24/18 09/15/18 Rx Past Med/Surg History Family History Mother Family hx colonic polyps Other No family history of adverse response to anesthesia Social History Preferred Language: Swazi Communication Ability: Effective Beliefs That Will Affect Care: None Current Living Situation: Other Current Living Situation Comment: Lives with ex- Feels Safe at Home: Yes Smoking Status: Former smoker Hx Alcohol Use: No Hx Substance Use: No Review of Systems All systems reviewed & are unremarkable except as noted in HPI & below Physical Exam Vital Signs (Past 24 Hours): Last Vital Signs Temp 36.6 C 09/15/18 14:01 Pulse 63 09/15/18 14:01 Resp 20 09/15/18 14:01 BP 128/70 09/15/18 14:01 Pulse Ox 97 09/15/18 14:01 Musculoskeletal: On physical examination of the right shoulder, she is wearing a sling. Her radial median and ulnar nerves are checked and intact at the wrist. Her axillary nerve was not checked. She has some ecchymosis on the upper aspect of her arm. There are no abrasions lesions or lacerations of her skin. Results & Data Diagnostic Findings X-rays and CT scan of the right shoulder do show a mostly 2 part right proximal humerus fracture with significant retroversion of the humeral head on the glenoid. There is no signs of dislocation. Medications Administered Lactated Ringer's (Lr) 1,000 mls @ 60 mls/hr IV .[id number] [facility] Stop: 09/15/18 22:39 Last Admin: 09/15/18 14:09 Dose: 15 mls/hr Documented by: [id number]
[2018-09-15] MEDS ORDERED: MIDAZOLAM HCL 1 MG/ML 2ML VIAL ONE (14:43)
[2018-09-15] MEDS ORDERED: fentaNYL citrate 100 MCG/2 ML VIAL ONE (14:44)
[2018-09-15] MEDS ORDERED: BUPIVACAINE 0.5 % 5 MG/1 ML PF 10ML VIAL ONE (15:06)
[2018-09-15] MEDS ORDERED: ePHEDrine sulfate 50 MG/ML AMP IV PRN (15:07)
[2018-09-15] MEDS ORDERED: ONDANSETRON INJ 2 MG/ML 2 ML VIAL IV PRN ×2 (15:07→18:40)
[2018-09-15] MEDS ORDERED: ATROPINE SULFATE 0.1 MG/ML 10ML SYR IV PRN (15:07)
[2018-09-15] MEDS ORDERED: PROPOFOL IV EMULSION 10 MG/ML 20 ML VIAL IV ONE (15:17)
[2018-09-15] MEDS ORDERED: ONDANSETRON INJ 2 MG/ML 2 ML VIAL ONE (15:39)
[2018-09-15] MEDS ORDERED: LIDOCAINE HCL 2% 2 ML VIAL/AMP(20MG/ML) INFIL ONE (15:39)
[2018-09-15] MEDS ORDERED: ePHEDrine sulfate 50 MG/ML AMP ONE (15:40)
[2018-09-15] MEDS ORDERED: POVIDONE-IODINE OP SOLN 30 ML BTL ONE (15:50)
--- NOTE | 2018-09-15 16:53 | Fluoroscopy Report ---
FL humerus RT 2V CLINICAL HISTORY: RT ORIF COMPARISON STUDY: Right shoulder internal fixation. FLUOROSCOPY TIME: 1 minute and 6 seconds.. FINDINGS: A single fluoroscopic spot image of the right shoulder demonstrates internal fixation of a right humeral neck fracture with cortical plate and screws. The hardware appears intact. The alignmen t is near-anatomic. IMPRESSION: Fluoroscopy provided for internal fixation of a right humeral neck fracture. Electronically signed by: Alexandr Deleon M.D. 09/15/2018 4:51 PM
--- NOTE | 2018-09-15 17:24 | Operative Report ---
Post Operative Report Pre & Post Diagnosis Operation Date: 09/15/18 09:35 Pre-Op Diagnosis: Right Proximal Humerus Fracture Post-Op Diagnosis: Right Proximal Humerus Fracture Procedure Operation Date: 09/15/18 09:35 Actual Procedures p Right Proximal Humerus Fracture Open Reduction Internal Fixation with bone grafting (Right) - Stuart Aguirre DO Surgeon Stuart Aguirre DO [employer] Impregnating Range Tender None Estimated Blood Loss 300 Findings Consistent with Post-Op Diagnosis Specimens None Complications none Disposition Disposition: Recovery Room Indications Nargis is a pleasant 53-year-old female who fell 3 weeks ago sustaining a right proximal humerus fracture. She was initially treated in a sling. She came to my office 3 weeks later. I was not happy with the overall alignment of the fracture. We talked about the risks benefits and alternatives to operative fixation she elected to proceed with open reduction internal fixation of the right proximal humerus. Description of Procedure On September 15, 2018 she arrived at [facility] for the above procedure. She was seen in the preoperative holding area and the operative extremity was identified and signed. She was given a preoperative antibiotic and a right interscalene nerve block. She is taken back to the operating room and laid on the table in supine position. She was put under general anesthesia. The right shoulder was prepped and draped in sterile fashion. A timeout was done. The patient and the operative extremity was properly identified. A deltopectoral incision was used. Dissection was taken down through the fascia and the anterior humerus was exposed. The long head of the biceps tendon was identified and tenotomized. I used the biceps groove as my landmark. I was able to get a near anatomic reduction of the fracture. K wires were used to hold reduction. A Synthes proximal humeral locking plate was then placed. A single compression screw was placed in the combination hole. I was happy with the overall alignment of the plate. Proximal locking screws were then placed. Screw lengths were checked under arthroscopy. 2 locking shaft screws were then placed. Final fluoroscopic images showed near anatomic reduction. I was able to get the shoulder through full range of motion. The wound was then irrigated and hemostasis was. A Betadine lavage was then used for 3 minutes. There was a large central cavity. This was filled with 5 cc of DBX putty and 5 cc of DBX mix. The interval was then closed with 2-0 Vicryl suture skin was closed with 3-0 Vicryl and felicia. She was placed in a soft compressive dressing and a regular arm sling. She was then extubated and transferred to a [facility]. She was taken to the postanesthesia care unit in stable condition. She tolerated the procedure well. I attest to the content of the Intraoperative Record and any orders documented therein. Any exceptions are noted below.
[2018-09-15] MEDS: fentaNYL citrate 100 MCG/2 ML VIAL IV PRN ×5 (17:28→17:53)
--- NOTE | 2018-09-15 18:28 | Anesthesiology Progress Note ---
Date of Service September 15, 2018 Anesthesia Post Procedure Vital Signs Vital Signs: Temp Pulse Pulse Resp BP BP Pulse Ox 09/15/18 18:15 80 19 97 09/15/18 18:11 79 18 114/74 95 09/15/18 18:10 78 18 95 09/15/18 18:06 77 19 128/73 94 09/15/18 18:05 78 18 95 09/15/18 18:00 80 13 127/77 96 09/15/18 17:59 36.6 C 79 16 127/77 96 09/15/18 17:56 79 20 109/74 09/15/18 17:55 75 17 96 09/15/18 17:51 77 15 119/70 94 09/15/18 17:50 81 15 95 09/15/18 17:46 79 15 131/71 95 09/15/18 17:45 80 17 97 09/15/18 17:40 79 14 120/79 97 09/15/18 17:36 78 16 109/72 99 09/15/18 17:35 75 13 99 09/15/18 17:30 76 12 100/74 100 09/15/18 17:27 78 14 108/69 100 09/15/18 17:26 78 14 100 09/15/18 17:24 77 23 177/163 H 100 09/15/18 17:23 78 15 154/143 H 97 09/15/18 17:22 77 14 99 09/15/18 17:18 36.0 C L 76 16 115/75 100 09/15/18 14:01 36.6 C 63 20 128/70 97 Pain Intensity Right Shoulder: Pain Intensity: 4 Notes Mental Status: alert / awake / arousable Patient Amnestic to Procedure: Yes Nausea / Vomiting: adequately controlled Pain: adequately controlled Airway Patency, RR, SpO2: stable & adequate BP & HR: stable & adequate Hydration State: stable & adequate Anesthetic Complications: no major complications apparent and Pt Satisfied with anesthetic care
[2018-09-15] MEDS ORDERED: METOCLOPRAMIDE HCL INJ 5 MG/ML 2 ML VIAL IV PRN (18:40)
[2018-09-15] MEDS ORDERED: NALOXONE HCL 0.4 MG/1 ML VIAL/CARP IV PRN (18:40)
[2018-09-15] MEDS ORDERED: SODIUM CHLORIDE 0.9% 1000ML 1,000 ML IV SCH (18:40)
[2018-09-15] MEDS ORDERED: LORazepam 0.5 MG TAB PO PRN (18:40)
[2018-09-15] MEDS ORDERED: ZOLPIDEM TARTRATE 10 MG TAB PO PRN (18:40)
[2018-09-15] MEDS ORDERED: HYDROmorphone INJ 0.5 MG/0.5 ML SYR IV PRN (18:40)
[2018-09-15] MEDS ORDERED: OXYCODONE HCL IR 5 MG TAB (IMMEDIATE RELEASE) PO PRN (18:40)
[2018-09-15] MEDS ORDERED: BISACODYL 10 MG SUPP PR PRN (18:40)
[2018-09-15] MEDS ORDERED: ALBUT/IPRATROP 3MG/0.5MG NEB 3 ML VIAL INH PRN (18:40)
[2018-09-15] MEDS ORDERED: ALBUTEROL HFA 8 GM INHALER INH PRN (18:40)
[2018-09-15] MEDS ORDERED: MAGNESIUM HYDROXIDE SUSP 30 ML UDC PO PRN (18:40)
[2018-09-15] MEDS: OXYCODONE HCL IR 5 MG TAB (IMMEDIATE RELEASE) PO PRN (20:12)
[2018-09-15] MEDS ORDERED: PANTOprazole 40 MG TAB PO SCH (21:00)
[2018-09-15] MEDS ORDERED: POLYETHYLENE (MIRALAX) 17 GM PACK PO SCH (21:00)
[2018-09-15] MEDS ORDERED: SENNA 8.6 MG TAB PO SCH (21:00)
[2018-09-15] MEDS ORDERED: LISINOPRIL 40 MG TAB PO SCH (21:00)
[2018-09-15] MEDS ORDERED: AMITRIPTYLINE HCL 10 MG TAB PO SCH (21:00)
[2018-09-15] MEDS ORDERED: AMLODIPINE BESYLATE 5 MG TAB PO SCH (21:00)
[2018-09-15] MEDS: DOCUSATE SODIUM 100 MG CAP PO SCH (21:50)
[2018-09-15] MEDS: GABAPENTIN 300 MG CAP PO SCH (21:51)
[2018-09-15] MEDS: KETOROLAC 30 MG/ML VIAL IV SCH (21:52)
[2018-09-15] MEDS: ACETAMINOPHEN 500 MG TAB PO SCH (21:52)
[2018-09-15] MEDS: CEFAZOLIN 2000MG 2,000 MG/15 ML SYR IV SCH (23:26)
[2018-09-16] MEDS: KETOROLAC 30 MG/ML VIAL IV SCH ×2 (02:05→07:26)
[2018-09-16] MEDS: ACETAMINOPHEN 500 MG TAB PO SCH (06:00)
--- NOTE | 2018-09-16 06:29 | Orthopedic Progress Note ---
Date of Service September 16, 2018 Assessment & Plan (1) Closed fracture of right proximal humerus: Overall she is doing fairly well. She will be in a sling for 6 weeks. I do not want any physical therapy yet. We will discharge her to home this morning on oral pain medications. She will follow-up with orthopedics in 2 weeks. Present on Admission?: Yes Yang Barillas was seen and examined at bedside this morning. Overall she is doing fairly well. She has not had any pain in the right shoulder. She still has loss of sensation in her right hand. She says her finger motion is just starting to come back now. She has no complaints. Physical Exam Vital Signs (Past 24 Hours): Last Vital Signs Temp 36.6 C 09/16/18 03:41 Pulse 80 09/16/18 03:41 Resp 14 09/16/18 03:41 BP 112/76 09/16/18 03:41 Pulse Ox 94 09/16/18 03:41 Musculoskeletal: On physical examination of the right shoulder, the dressing is clean and dry. She is wearing her sling as instructed. She can wiggle her fingers but she can extend her wrist or extend her thumb yet. She still has a lot of numbness in her thumb and her hand.
--- NOTE | 2018-09-16 06:30 | Discharge Summary ---
Date of Service September 16, 2018 Admission HPI Per Admitting Provider Nargis is a pleasant 53-year-old female who slipped and fell on the ice 3 weeks ago. She went to the emergency room and radiographs demonstrated a moderately displaced right proximal humerus fracture. She was placed in the sling. She presented my office 3 weeks later. X-rays and CT scan were reviewed and it showed a mostly 2 part proximal humerus fracture with significant retroversion of the humeral head on the glenoid. We discussed operative and nonoperative treatment and after extensive discussions we elected to proceed with an open reduction internal fixation of the right proximal humerus for better alignment. Discharge Data Procedures Performed Operation Date: 09/15/18 09:35 Actual Procedures p Right Proximal Humerus Fracture Open Reduction Internal Fixation(Right) - Stuart Aguirre DO Hospital Course (1) Closed fracture of right proximal humerus: On September 15, 2018 Nargis arrived at [facility] and underwent an open reduction and internal fixation of her right proximal humerus without complication. She had a general anesthetic and a right interscalene nerve block. Postoperatively she was placed in a sling and kept overnight for medical management. Her hospital course is uneventful. On postop day #1 she was doing very well. She was having no pain in her right shoulder. She was able to ambulate around the room. She was then discharged home with oral pain medications. She will follow-up with orthopedics in 2 weeks. Discharge Instructions Home Medications Medication Instructions Recorded Confirmed albuterol sulfate [Ventolin HFA] 2 puff INHALATION Q4 PRN 07/27/18 09/15/18 amitriptyline 20 mg PO 07/27/18 09/15/18 amlodipine 5 mg PO 07/27/18 09/15/18 aspirin 81 mg PO QAM 07/27/18 09/15/18 cholecalciferol (vitamin D3) 5,000 unit PO QAM 07/27/18 09/15/18 [Vitamin D3] fluoxetine 80 mg PO QAM 07/27/18 09/15/18 folic acid 1 mg PO QAM 07/27/18 09/15/18 hydrocortisone acetate 1 applic [place] BID PRN 07/27/18 09/15/18 ipratropium-albuterol 3 ml INHALATION QID PRN 07/27/18 09/15/18 lisinopril 40 mg PO HS 07/27/18 09/15/18 lorazepam 0.5 mg PO BID PRN 07/27/18 09/15/18 nystatin 1 applic TOPICAL BID PRN 07/27/18 09/15/18 nystatin 5 ml BUCCAL UD PRN 07/27/18 09/15/18 omeprazole 20 mg PO HS 07/27/18 09/15/18 ondansetron 4 mg PO Q6 PRN 07/27/18 09/15/18 polyethylene glycol 3350 [Miralax] 17 g PO HS 07/27/18 09/15/18 prednisone 5 mg PO QAM 07/27/18 09/15/18 zolpidem 10 mg PO HS PRN 07/27/18 09/15/18 gabapentin [Neurontin] 900 mg PO TID 08/24/18 09/15/18 Previous Rx's Medication Instructions Recorded diclofenac potassium 50 mg PO Q8H PRN #30 tab 08/24/18 oxycodone [Roxicodone] 5 mg PO Q6H PRN #12 tab 08/24/18 cyclobenzaprine 10 mg PO BID PRN #20 tab 09/16/18 oxycodone 5 mg PO QID PRN #30 tab 09/16/18
--- NOTE | 2018-09-16 07:24 | Anesthesiology Progress Note ---
Date of Service September 16, 2018 Anesthesia Post Procedure Vital Signs Vital Signs: Temp Pulse Pulse Pulse Resp BP BP 09/16/18 07:10 36.8 C 80 16 09/16/18 03:41 36.6 C 80 14 112/76 09/15/18 23:20 36.7 C 81 14 107/70 09/15/18 21:49 37.1 C 92 H 18 116/73 09/15/18 20:30 36.9 C 81 18 108/68 09/15/18 19:35 36.7 C 80 18 115/77 09/15/18 18:58 77 16 120/77 09/15/18 18:30 37 C 77 16 104/70 09/15/18 18:15 80 19 09/15/18 18:11 79 18 114/74 09/15/18 18:10 78 18 09/15/18 18:06 77 19 128/73 09/15/18 18:05 78 18 09/15/18 18:00 80 13 127/77 09/15/18 17:59 36.6 C 79 16 127/77 09/15/18 17:56 79 20 109/74 09/15/18 17:55 75 17 09/15/18 17:51 77 15 119/70 09/15/18 17:50 81 15 09/15/18 17:46 79 15 131/71 09/15/18 17:45 80 17 09/15/18 17:40 79 14 120/79 09/15/18 17:36 78 16 109/72 09/15/18 17:35 75 13 09/15/18 17:30 76 12 100/74 09/15/18 17:27 78 14 108/69 09/15/18 17:26 78 14 09/15/18 17:24 77 23 177/163 H 09/15/18 17:23 78 15 154/143 H 09/15/18 17:22 77 14 09/15/18 17:18 36.0 C L 76 16 115/75 09/15/18 14:01 36.6 C 63 20 128/70 Pulse Ox 09/16/18 07:10 95 09/16/18 03:41 94 09/15/18 23:20 94 09/15/18 21:49 96 09/15/18 20:30 97 09/15/18 19:35 96 09/15/18 18:58 96 09/15/18 18:30 95 09/15/18 18:15 97 09/15/18 18:11 95 09/15/18 18:10 95 09/15/18 18:06 94 09/15/18 18:05 95 09/15/18 18:00 96 09/15/18 17:59 96 09/15/18 17:56 09/15/18 17:55 96 09/15/18 17:51 94 09/15/18 17:50 95 09/15/18 17:46 95 09/15/18 17:45 97 09/15/18 17:40 97 09/15/18 17:36 99 09/15/18 17:35 99 09/15/18 17:30 100 09/15/18 17:27 100 09/15/18 17:26 100 09/15/18 17:24 100 09/15/18 17:23 97 09/15/18 17:22 99 09/15/18 17:18 100 09/15/18 14:01 97 Pain Intensity Right Shoulder: Pain Intensity: 6 Notes Mental Status: alert / awake / arousable Patient Amnestic to Procedure: Yes Nausea / Vomiting: adequately controlled Pain: adequately controlled Airway Patency, RR, SpO2: stable & adequate BP & HR: stable & adequate Hydration State: stable & adequate Anesthetic Complications: no major complications apparent
[2018-09-16] MEDS: OXYCODONE HCL IR 5 MG TAB (IMMEDIATE RELEASE) PO PRN (07:26)
[2018-09-16] MEDS: CEFAZOLIN 2000MG 2,000 MG/15 ML SYR IV SCH (07:26)
[2018-09-16] MEDS: DOCUSATE SODIUM 100 MG CAP PO SCH (08:41)
[2018-09-16] MEDS: GABAPENTIN 300 MG CAP PO SCH (08:41)
[2018-09-16] MEDS ORDERED: FOLIC ACID 1 MG TAB PO SCH (09:00)
[2018-09-16] MEDS ORDERED: predniSONE 5 MG TAB PO SCH (09:00)
[2018-09-16] MEDS ORDERED: MULTIVITAMIN TAB PO SCH (09:00)
[2018-09-16] MEDS ORDERED: FLUOXETINE HCL 20 MG CAP PO SCH (09:00)
[2018-09-16] MEDS ORDERED: ASPIRIN 81 MG ECTAB PO SCH (09:00)
[2018-09-17] MEDS ORDERED: DICLOFENAC SODIUM 25 MG TABDR PO PRN (20:00)
== END 2018-09-16 10:15 | disposition home or self-care (01) | DRG 512 ==
LOC: ASU 13:23 → 3E 17:18

== ENCOUNTER 2021-06-09 15:21 | Inpatient (IN) ==
[2021-06-09 16:01] LABS: Basophils # (auto) 0.02 K/uL (0-0.2); Basophils % (auto) 0.3 %; Eosinophils # (auto) 0.43 K/uL (0-0.5); Eosinophils % (auto) 5.8 %; Hematocrit (blood only) 38.4 % (37-47); Hemoglobin 12.4 g/dL (12.0-16.0); Immature Granulocytes # (auto) 0.01 K/uL (0.00-0.02); Immature Granulocytes % (auto) 0.1 %; Lymphocytes # (auto) 1.43 K/uL (1.2-3.4); Lymphocytes % (auto) 19.4 %; Mean Corpuscular Hemoglobin 27.7 pg (25-34); Mean Corpuscular Hgb Conc 32.3 g/dL (32-36); Mean Corpuscular Volume 85.7 fL (80-100); Mean Platelet Volume 9.7 fL (7.4-10.4); Monocytes # (auto) 0.78 K/uL (0.11-0.59); Monocytes % (auto) 10.6 %; Neutrophils # (auto) 4.71 K/uL (1.4-6.5); Neutrophils % (auto) 63.8 %; Platelet Count 279 K/uL (130-400); RDW Coefficient of Variation 13.9 % (11.5-14.5); RDW Standard Deviation 43.9 fL (36.4-46.3); Red Blood Count 4.48 M/uL (4.2-5.4); White Blood Count 7.38 K/uL (4.8-10.8)
[2021-06-09 16:09] LABS: Prothrombin Time 9.8 Seconds (9.0-12.0)
[2021-06-09 16:41] LABS: Alanine Aminotransferase 16 U/L (12-78); Albumin Globulin Ratio 0.6 (0.9-2); Albumin Level 2.9 gm/dl (3.4-5.0); Alkaline Phosphatase 98 U/L (45-117); Aspartate Aminotransferase 20 U/L (15-37); BUN Creatinine Ratio 8.4 (10-20); Bilirubin,Total 0.3 mg/dl (0.2-1); Blood Urea Nitrogen 8 mg/dl (7-18); Carbon Dioxide 24 mmol/L (21-32); Chloride 104 mmol/L (98-107); Creatinine Clr Calc Pharmacy 75.7 ml/min; Est GFR (African American) 78.6 ml/min; Est GFR (Non-African American) 67.8 ml/min; Globulin 4.9 gm/dl (2.5-4.0); Glucose 91 mg/dl (70-99); Magnesium 2.2 mg/dl (1.8-2.4); Potassium 3.4 mmol/L (3.5-5.1); Sodium 135 mmol/L (136-145); Total Protein 7.8 gm/dl (6.4-8.2); Troponin I < 0.015 ng/ml (0-0.045)
--- NOTE | 2021-06-09 16:55 | XRay Report ---
XR chest 1V portable CLINICAL HISTORY: SOB. COMPARISON STUDY: 02/17/2021 TECHNIQUE: 1 view of the chest FINDINGS: Single frontal view of the chest demonstrates the cardiomediastinal silhouette to be within normal li mits. Compared to the previous examination, mild patchy interstitial and alveolar opacities bilateral ly characteristic of a viral type pneumonitis and probable Covid 19 pneumonia. There is no evidence f or pleural effusion. There is no evidence for vascular congestion. There is no acute osseous patholog y. IMPRESSION: Interval development of mild patchy interstitial and alveolar opacities bilaterally merlin cteristic of a viral type pneumonitis and probable early Covid 19 pneumonia. ACT 112: Negative or not required by law. Electronically signed by: Benjamin Salas M.D. 06/09/2021 4:54 PM
--- NOTE | 2021-06-09 17:58 | Electrocardiogram Report ---
Test Reason : Blood Pressure : / mmHG Vent. Rate : 056 BPM Atrial Rate : 056 BPM P-R Int : 150 ms QRS Dur : 088 ms QT Int : 436 ms P-R-T Axes : 019 029 033 degrees QTc Int : 420 ms Poor data quality, interpretation may be adversely affected Sinus bradycardia Abnormal ECG When compared with ECG of 09-FEB-2021 09:13, No significant change was found Confirmed by Jairo Vizcaino ([id number] on 06/09/2021 5:58:13 PM Referred By: Confirmed By:Steve Vizcaino
--- NOTE | 2021-06-09 21:52 | Emergency Department Note ---
History of Present Illness General Chief Complaint: Shortness of Breath/Dyspnea Stated Complaint: SOB,WT ON CHEST,OXY DROP TO 80'S,REF BY DOC Time Seen by Provider: 06/09/21 21:26 History of Present Illness Provider Complaint: shortness of breath Onset (ago): day(s) (2) Severity: moderate Consistency/Duration: + constant Maximum Pain Intensity: 7 Relieved By: + rest Exacerbated By: + exertion and + movement Context: + recent illness (Patient with newly diagnosed with mycoplasma pneumonia.) Known history of: COPD Associated symptoms: + cough and + chest congestion; no fever, no wheezing, no orthopnea, no palpitations, no diaphoresis or no abdominal pain HPI Narrative: Patient states she has been measuring her home oxygen saturations with a home pulse oximeter and her oxygen level goes down into the 80s when she exerts herself. Home Medications Medication Instructions Recorded Confirmed Type aspirin 81 mg tablet,delayed 81 mg PO QAM 07/27/18 06/09/21 History release cholecalciferol (vitamin D3) 125 5,000 unit PO QAM 07/27/18 06/09/21 History mcg (5,000 unit) tablet (Vitamin D3) folic acid 1 mg tablet 1 mg PO QAM 07/27/18 06/09/21 History hydrocortisone acetate 2.5 % 1 applic AR BID PRN 07/27/18 06/09/21 History topical cream with perineal applicator ipratropium 0.5 mg-albuterol 3 mg 3 ml INHALATION QID PRN 07/27/18 06/09/21 History (2.5 mg base)/3 mL nebulization soln nystatin 100,000 unit/gram topical 1 applic TOPICAL BID PRN 07/27/18 06/09/21 History cream nystatin 100,000 unit/mL oral 5 ml BUCCAL UD PRN 07/27/18 06/09/21 History suspension polyethylene glycol 3350 17 17 g PO HS 07/27/18 06/09/21 History gram/dose oral powder (Miralax) prednisone 5 mg tablet 5 mg PO QAM 07/27/18 06/09/21 History gabapentin 300 mg capsule 900 mg PO TID 08/24/18 06/09/21 History (Neurontin) oxycodone 5 mg tablet (Roxicodone) 5 mg PO Q6H PRN #12 tab 08/24/18 06/09/21 Rx albuterol sulfate 90 mcg/actuation 2 puff INHALATION Q4 PRN #18 gm 02/13/19 06/09/21 Rx aerosol inhaler (Ventolin HFA) Oxygen Home #1 ea 04/04/19 06/09/21 History clobetasol 0.05 % topical cream 1 appln TOP BID PRN 07/26/19 06/09/21 History famotidine 20 mg tablet 20 mg PO PM 07/26/19 06/09/21 History methocarbamol 500 mg tablet 500 mg PO Q8H PRN 07/26/19 06/09/21 History albuterol sulfate 0.63 mg/3 mL 0.63 mg INH TID #75 ml 08/28/19 06/09/21 Rx solution for nebulization amlodipine 5 mg tablet 2.5 mg PO HS tab 11/16/20 06/09/21 History amitriptyline 10 mg tablet 20 mg PO HS #60 tab 12/18/20 06/09/21 Rx omeprazole 20 mg tablet,delayed 20 mg PO HS PRN #90 tab 04/01/21 06/09/21 Rx release lorazepam 0.5 mg tablet 0.5 mg PO BID PRN #60 tab 04/15/21 06/09/21 Rx zolpidem 10 mg tablet 10 mg PO HS PRN #30 tab 06/03/21 06/09/21 Rx fluoxetine 40 mg capsule 40 mg PO QAM 06/09/21 06/09/21 History Allergies Allergy/AdvReac Type Severity Reaction Status Date / Time cefazolin Allergy Intermediate ITCHING Verified 06/09/21 13:58 Penicillins Allergy Intermediate passes out Verified 06/09/21 13:58 as a child vancomycin Allergy Intermediate red man Verified 06/09/21 13:58 syndrome belimumab AdvReac Unknown N/V Verified 06/09/21 13:58 sorbitan esters AdvReac Unknown N/V Verified 06/09/21 13:58 Past Med/Surg History Medical History Anemia Anxiety Celiac disease Chronic back pain Chronic constipation Chronic steroid use prednisone for lupus Closed fracture of right proximal humerus Depression Facial lesion Fibromyalgia GERD (gastroesophageal reflux disease) Hyperlipidemia Hypertension Hyponatremia Immunocompromised patient Kidney stones Leukocytosis On home oxygen therapy 2L n/c Osteoarthritis Shortness of breath Supraventricular tachycardia s/p ablation Surgical History H/O laparoscopy H/O shoulder surgery History of cardiac radiofrequency ablation for SVT @ [facility] [place] 2009; 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 Hand Required: No Beliefs That Will Affect Care: None marital status: Current Living Situation: Other Current Living Situation Comment: Lives with ex- current occupational status: unemployed Feels Safe at Home: Yes Childhood Exposure to Second-Hand Smoke: Yes Dental Care, Regularly: No Physical Activity Frequency: 3-4 Times per Week Physical Activity Frequency Comment: crunches, stretching, weights Seatbelt Use: always Sunscreen Use: Yes Assistive Devices: Denture - Upper, Denture - Lower and Glasses Review of Systems A total of 10 systems reviewed and were otherwise negative Physical Exam Vital Signs: Vital Signs - 24 hr 06/09/21 15:31 06/09/21 21:36 06/09/21 22:25 Temperature 36.6 C Temperature Source Oral Pulse Rate 61 Pulse Rate [Finger ] 60 Respiratory Rate 20 16 Respiratory Effort / Characteristics Non-Labored Sponta neous Respiratory Depth Normal Respiratory Patter n Regular Blood Pressure 160/75 H Blood Pressure [Ri ght Arm] 150/75 H Blood Pressure Ariana n 103 Blood Pressure Ariana n [Right Arm] 100 Pulse Oximetry 96 83 L 94 Oxygen Delivery Me thod Room Air Room Air Nasal Cannula Oxygen Flow Rate 2 Sepsis Recent Feve r Within 48 Hours No Sepsis New/Unexpla ined Change in Men key Status No Sepsis Action Take n by Nursing No Action Required 06/09/21 22:26 Temperature Temperature Source Pulse Rate Pulse Rate [Finger ] Respiratory Rate Respiratory Effort / Characteristics Respiratory Depth Respiratory Patter n Blood Pressure Blood Pressure [Ri ght Arm] Blood Pressure Ariana n Blood Pressure Ariana n [Right Arm] Pulse Oximetry Oxygen Delivery Me thod Room Air Oxygen Flow Rate Sepsis Recent Feve r Within 48 Hours Sepsis New/Unexpla ined Change in Men key Status Sepsis Action Take n by Nursing Physical Exam: Physical Exam GENERAL: She is oriented to person, place, and time. She appears well-developed and well-nourished. She does not appear distressed. HENT: Exam performed. -Head: Normocephalic and atraumatic. -Right Ear: External ear normal. No mastoid tenderness. -Left Ear: External ear normal. No mastoid tenderness. -Mouth/Throat: The oropharynx is clear and moist. No trismus in the jaw. No dental abscesses or uvula swelling. No oropharyngeal exudate or tonsillar abscesses. EYES: Conjunctivae and EOM are normal. Pupils are equal, round, and reactive to light. Right eye exhibits no discharge. Left eye exhibits no discharge. No scleral icterus. NECK: Normal range of motion. Neck supple. No JVD present. No spinous process tenderness present. No carotid bruit present. No rigidity. No tracheal deviation and normal range of motion present. No Brudzinski's sign and no Kernig's sign noted. CV: Normal rate, regular rhythm, normal heart sounds and intact distal pulses. There is no peripheral edema. Palpable radial pulses bue. PULM/CHEST: Diminished breath sounds bilaterally. -Chest Wall: She exhibits no tenderness. ABD: The abdomen is soft. Bowel sounds are normal. She has no distension. No mass is present. There is no tenderness. There is no rebound, no guarding, no Farmer's sign and no tenderness at McBurney's point. Rovsig negative MUSC/SKEL: Normal range of motion. There is no peripheral edema, tenderness or deformity. LYMPH: No cervical adenopathy. NEURO: She is alert and oriented to person, place, and time. She has normal strength. No cranial nerve deficit or sensory deficit. Coordination and gait normal. GCS eye subscore is 4. GCS verbal subscore is 5. GCS motor subscore is 6. Cerebellar tests wnl. SKIN: Skin is warm and dry. She is not diaphoretic. PSYCH: She has a normal mood and affect. Behavior is normal. Judgment and thought content normal. Course Course 2125: The patient was evaluated in room A3. A complete history and physical exam was performed Cardiac monitoring: An order was placed for continuous cardiac monitoring. The monitor shows a rate of 60 with sinus rhythm Patient was seen during a time of extreme volume and extreme acuity during the COVID-19 pandemic. Nursing triage protocols were initiated and labs were drawn by protocol in the triage area. The patient did walk to the restroom and on walking back to her bed the patient had her home portable pulse oximeter on and her oxygen saturation read 86% on room air. Will obtain CT of the chest to rule out PE as well as repeat troponin and ABG. 2345: Vital signs stable on supplemental oxygen via nasal cannula. White blood cell count normal. [address] of the chest shows no PE. It does show bilateral airspace infiltrates. Covid negative. Patient be treated with antibiotics for commune acquired pneumonia azithromycin and Rocephin. [facility] be [facility] team Dr. Golden notified. Administered Medications Discontinued Medications Acetaminophen (Acetaminophen 500 Mg Tab) 1,000 mg PO NOW STA Stop: 06/09/21 22:17 Last Admin: 06/09/21 22: Dose: 1,000 mg Documented by: [id number] Ioversol (Optiray 320 125ml) 120 ml IV ONCE ONE Stop: 06/09/21 22:13 Last Admin: 06/09/21 22:17 Dose: 120 ml Documented by: [id number] Medical Decision Making Laboratory Data Result diagrams: 06/09/21 15:50 06/09/21 15:50 Lab Results 06/09/21 06/09/21 06/09/21 Range/Units 15:50 15:50 15:50 WBC 7.38 (4.8-10.8) K/uL RBC 4.48 (4.2-5.4) M/uL Hgb 12.4 (12.0-16.0) g/dL Hct 38.4 (37-47) % MCV 85.7 (80-100) fL MCH 27.7 (25-34) pg MCHC 32.3 (32-36) g/dL RDW Std Deviation 43.9 (36.4-46.3) fL RDW Coeff of Zach 13.9 (11.5-14.5) % Plt Count 279 (130-400) K/uL MPV 9.7 (7.4-10.4) fL Immature Gran % (Auto) 0.1 % Neut % (Auto) 63.8 % Lymph % (Auto) 19.4 % [place] % (Auto) 10.6 % Eos % (Auto) 5.8 % Baso % (Auto) 0.3 % Neut # (Auto) 4.71 (1.4-6.5) K/uL Lymph # (Auto) 1.43 (1.2-3.4) K/uL [place] # (Auto) 0.78 H (0.11-0.59) K/uL Eos # (Auto) 0.43 (0-0.5) K/uL Baso # (Auto) 0.02 (0-0.2) K/uL Immature Gran # (Auto) 0.01 (0.00-0.02) K/uL PT 9.8 (9.0-12.0) Seconds INR 1.0 (0.9-1.1) APTT 26.0 (21.0-31.0) Seconds PTT Ratio 1.0 ABG pH (7.35-7.45) ABG pCO2 (35-46) mmHg ABG pO2 (80-95) mmHg ABG HCO3 (19-24) mmol/L ABG O2 Saturation (90-95) % ABG Base Excess (-9-1.8) mEq/L Wolf Test (Pos) Barometric Pressure mm/Hg Oxygen Given Sodium 135 L (136-145) mmol/L Potassium 3.4 L (3.5-5.1) mmol/L Chloride 104 (98-107) mmol/L Carbon Dioxide 24 (21-32) mmol/L Anion Gap 7.0 (3-11) BUN 8 (7-18) mg/dl Creatinine 0.94 (0.6-1.2) mg/dl Est Cr Clr Drug Dosing 75.7 ml/min Est GFR ( Amer) 78.6 ml/min Est GFR (Non-Af Amer) 67.8 ml/min BUN/Creatinine Ratio 8.4 L (10-20) Glucose 91 (70-99) mg/dl Calcium 9.0 (8.5-10.1) mg/dl Magnesium 2.2 (1.8-2.4) mg/dl Total Bilirubin 0.3 (0.2-1) mg/dl AST 20 (15-37) U/L ALT 16 (12-78) U/L Alkaline Phosphatase 98 (45-117) U/L Troponin I < 0.015 (0-0.045) ng/ml Total Protein 7.8 (6.4-8.2) gm/dl Albumin 2.9 L (3.4-5.0) gm/dl Globulin 4.9 H (2.5-4.0) gm/dl Albumin/Globulin Ratio 0.6 L (0.9-2) Specimen Hemolysis SARS-CoV-2 (PCR) (Negative) Influ A Molecular Assay (Negative) Influ B Molecular Assay (Negative) 06/09/21 06/09/21 06/09/21 Range/Units 21:40 21:40 22:27 WBC (4.8-10.8) K/uL RBC (4.2-5.4) M/uL Hgb (12.0-16.0) g/dL Hct (37-47) % MCV (80-100) fL MCH (25-34) pg MCHC (32-36) g/dL RDW Std Deviation (36.4-46.3) fL RDW Coeff of Zach (11.5-14.5) % Plt Count (130-400) K/uL MPV (7.4-10.4) fL Immature Gran % (Auto) % Neut % (Auto) % Lymph % (Auto) % [place] % (Auto) % Eos % (Auto) % Baso % (Auto) % Neut # (Auto) (1.4-6.5) K/uL Lymph # (Auto) (1.2-3.4) K/uL [place] # (Auto) (0.11-0.59) K/uL Eos # (Auto) (0-0.5) K/uL Baso # (Auto) (0-0.2) K/uL Immature Gran # (Auto) (0.00-0.02) K/uL PT (9.0-12.0) Seconds INR (0.9-1.1) APTT (21.0-31.0) Seconds PTT Ratio ABG pH 7.46 H (7.35-7.45) ABG pCO2 32 L (35-46) mmHg ABG pO2 64 L (80-95) mmHg ABG HCO3 22 (19-24) mmol/L ABG O2 Saturation 93.3 (90-95) % ABG Base Excess -0.7 (-9-1.8) mEq/L Wolf Test Pos (Pos) Barometric Pressure 732.2 mm/Hg Oxygen Given ROOM AIR Sodium (136-145) mmol/L Potassium (3.5-5.1) mmol/L Chloride (98-107) mmol/L Carbon Dioxide (21-32) mmol/L Anion Gap (3-11) BUN (7-18) mg/dl Creatinine (0.6-1.2) mg/dl Est Cr Clr Drug Dosing ml/min Est GFR ( Amer) ml/min Est GFR (Non-Af Amer) ml/min BUN/Creatinine Ratio (10-20) Glucose (70-99) mg/dl Calcium (8.5-10.1) mg/dl Magnesium (1.8-2.4) mg/dl Total Bilirubin (0.2-1) mg/dl AST (15-37) U/L ALT (12-78) U/L Alkaline Phosphatase (45-117) U/L Troponin I < 0.015 (0-0.045) ng/ml Total Protein (6.4-8.2) gm/dl Albumin (3.4-5.0) gm/dl Globulin (2.5-4.0) gm/dl Albumin/Globulin Ratio (0.9-2) Specimen Hemolysis SARS-CoV-2 (PCR) (Negative) Influ A Molecular Assay Negative (Negative) Influ B Molecular Assay Negative (Negative) 06/09/21 Range/Units 22:27 WBC (4.8-10.8) K/uL RBC (4.2-5.4) M/uL Hgb (12.0-16.0) g/dL Hct (37-47) % MCV (80-100) fL MCH (25-34) pg MCHC (32-36) g/dL RDW Std Deviation (36.4-46.3) fL RDW Coeff of Zach (11.5-14.5) % Plt Count (130-400) K/uL MPV (7.4-10.4) fL Immature Gran % (Auto) % Neut % (Auto) % Lymph % (Auto) % [place] % (Auto) % Eos % (Auto) % Baso % (Auto) % Neut # (Auto) (1.4-6.5) K/uL Lymph # (Auto) (1.2-3.4) K/uL [place] # (Auto) (0.11-0.59) K/uL Eos # (Auto) (0-0.5) K/uL Baso # (Auto) (0-0.2) K/uL Immature Gran # (Auto) (0.00-0.02) K/uL PT (9.0-12.0) Seconds INR (0.9-1.1) APTT (21.0-31.0) Seconds PTT Ratio ABG pH (7.35-7.45) ABG pCO2 (35-46) mmHg ABG pO2 (80-95) mmHg ABG HCO3 (19-24) mmol/L ABG O2 Saturation (90-95) % ABG Base Excess (-9-1.8) mEq/L Wolf Test (Pos) Barometric Pressure mm/Hg Oxygen Given Sodium (136-145) mmol/L Potassium (3.5-5.1) mmol/L Chloride (98-107) mmol/L Carbon Dioxide (21-32) mmol/L Anion Gap (3-11) BUN (7-18) mg/dl Creatinine (0.6-1.2) mg/dl Est Cr Clr Drug Dosing ml/min Est GFR ( Amer) ml/min Est GFR (Non-Af Amer) ml/min BUN/Creatinine Ratio (10-20) Glucose (70-99) mg/dl Calcium (8.5-10.1) mg/dl Magnesium (1.8-2.4) mg/dl Total Bilirubin (0.2-1) mg/dl AST (15-37) U/L ALT (12-78) U/L Alkaline Phosphatase (45-117) U/L Troponin I (0-0.045) ng/ml Total Protein (6.4-8.2) gm/dl Albumin (3.4-5.0) gm/dl Globulin (2.5-4.0) gm/dl Albumin/Globulin Ratio (0.9-2) Specimen Hemolysis SARS-CoV-2 (PCR) NEGATIVE (Negative) Influ A Molecular Assay (Negative) Influ B Molecular Assay (Negative) Imaging Data Radiologist's Impression: Chest X-Ray 06/09/21 15:39 XR chest 1V portable CLINICAL HISTORY: SOB. COMPARISON STUDY: 02/17/2021 TECHNIQUE: 1 view of the chest FINDINGS: Single frontal view of the chest demonstrates the cardiomediastinal silhouette to be within normal limits. Compared to the previous examination, mild patchy interstitial and alveolar opacities bilaterally characteristic of a viral type pneumonitis and probable Covid 19 pneumonia. There is no evidence for pleural effusion. There is no evidence for vascular congestion. There is no acute osseous pathology. IMPRESSION: Interval development of mild patchy interstitial and alveolar opaci ties bilaterally characteristic of a viral type pneumonitis and probable early Covid 19 pneumonia. ACT 112: Negative or not required by law. Electronically signed by: Benjamin Salas M.D. 06/09/2021 4:54 PM Preliminary Findings Only See Final Report For Complete Findings CTA CHEST: Comparison is made with CTA chest February 09, 2021. No pulmonary embolism. Previously noted masslike consolidation in the right upper lobe is no longer seen. Progressive moderate bilateral airspace infiltrates, nodular, fairly symmetrical, could reflect pneumonia or edema. Covid pneumonitis is included in the differential considerations. Emphysema. Radiologist: Coral Dickerson M.D. Study ready at 22:29 and initial results transmitted at 23:17 ECG Data Interpretation: Sinus rhythm with rate of 56. AR QRS and QTc intervals within normal limits. No ST elevation or ST depression. [facility] Narrative 2126: The patient was evaluated in room A3. A complete history and physical exam was performed Cardiac monitoring: An order was placed for continuous cardiac monitoring. The monitor shows a rate of 60 with sinus rhythm Patient was seen during a time of extreme volume and extreme acuity during the COVID-19 pandemic. Nursing triage protocols were initiated and labs were drawn by protocol in the triage area. The patient did walk to the restroom and on walking back to her bed the patient had her home portable pulse oximeter on and her oxygen saturation read 86% on room air. Will obtain CT of the chest to rule out PE as well as repeat troponin and ABG. 2345: Vital signs stable on supplemental oxygen via nasal cannula. White blood cell count normal. [address] of the chest shows no PE. It does show bilateral airspace infiltrates. Covid negative. Patient be treated with antibiotics for commune acquired pneumonia azithromycin and Rocephin. Patient be admitted to [facility] team Dr. Golden notified. Impression & Plan Pneumonia, Hypoxia Critical Care Time Critical Care Time: Yes Total Critical Care Time: 40 I have personally spent greater than 40 minutes of critical care time in the direct management of this patient. This includes bedside care, interpretation of diagnostic studies, and testing, discussion with consultants, patient, and family members, and other required patient management activities. This 40 minutes is in excess of all separately billable procedures. Discharge Plan Visit Data Chief Complaint: Shortness of Breath/Dyspnea Stated Complaint: SOB,WT ON CHEST,OXY DROP TO 80'S,REF BY DOC ED Provider: Kevin Truong Discharge Problem: Pneumonia, Hypoxia Patient Disposition: Admitted As Inpatient Forms Stand Alone Forms: [facility] Prescriptions Prescriptions: No Action albuterol sulfate [Ventolin HFA] 90 mcg/actuation HFA aerosol inhaler 2 puff INHALATION Q4 PRN (Reason: Shortness Of Breath) Qty: 18 RF: 5 amitriptyline 10 mg tablet 20 mg PO HS Qty: 60 RF: 5 omeprazole 20 mg tablet,delayed release (DR/EC) 20 mg PO HS PRN (Reason: gastric upset) Qty: 90 RF: 3 zolpidem 10 mg tablet 10 mg PO HS PRN (Reason: Insomnia) Qty: 30 RF: 0 amlodipine 5 mg tablet 2.5 mg PO HS RF: 0 lorazepam 0.5 mg tablet 0.5 mg PO BID PRN (Reason: Anxiety) Qty: 60 RF: 0 (DME) Oxygen Home Liters Per Minute See Dose Instructions .ROUTE .MEDSUPPLY Qty: 1 RF: 0 albuterol sulfate 0.63 mg/3 mL solution for nebulization 0.63 mg INH TID Qty: 75 RF: 3 nystatin 100,000 unit/mL Suspension 5 ml BUCCAL UD PRN (Reason: thrush) RF: 0 ipratropium-albuterol 0.5 mg-3 mg(2.5 mg base)/3 mL Solution For Nebulization 3 ml INHALATION QID PRN (Reason: Shortness Of Breath) RF: 0 prednisone 5 mg Tablet 5 mg PO QAM RF: 0 aspirin 81 mg Tablet,Delayed Release (Dr/Ec) 81 mg PO QAM RF: 0 hydrocortisone acetate 2.5 % Cream With Perineal Applicator 1 applic AR BID PRN (Reason: Hemorrhoids) RF: 0 nystatin 100,000 unit/gram Cream 1 applic TOPICAL BID PRN (Reason: Rash) RF: 0 folic acid 1 mg Tablet 1 mg PO QAM RF: 0 polyethylene glycol 3350 [Miralax] 17 gram/dose Powder 17 g PO HS RF: 0 cholecalciferol (vitamin D3) [Vitamin D3] 5,000 unit Tablet 5,000 unit PO QAM RF: 0 gabapentin [Neurontin] 300 mg capsule 900 mg PO TID RF: 0 oxycodone [Roxicodone] 5 mg tablet 5 mg PO Q6H PRN (Reason: pain) Qty: 12 RF: 0 methocarbamol 500 mg tablet 500 mg PO Q8H PRN (Reason: Muscle Spasm) RF: 0 famotidine 20 mg tablet 20 mg PO PM RF: 0 clobetasol 0.05 % cream 1 appln TOP BID PRN (Reason: .) RF: 0 fluoxetine 40 mg capsule 40 mg PO QAM RF: 0 Referrals Referrals: Jairo Escobar MD [Primary Care Provider] -
[2021-06-09 22:02] LABS: Allen Test Pos (Pos); Base Excess ABG -0.7 mEq/L (-9-1.8); HCO3 ABG 22 mmol/L (19-24); Oxygen Saturation ABG 93.3 % (90-95); PCO2 ABG 32 mmHg (35-46); PO2 ABG 64 mmHg (80-95); pH ABG 7.46 (7.35-7.45)
[2021-06-09] MEDS ORDERED: OPTIRAY 320 125ml IV ONE (22:12)
[2021-06-09] MEDS ORDERED: ACETAMINOPHEN 500 MG TAB PO STA (22:16)
[2021-06-09 22:59] LABS: Influenza A virus by PCR Negative (Negative); Influenza B virus by PCR Negative (Negative)
[2021-06-09] MEDS ORDERED: AZITHROMYCIN 250 MG TAB PO ONE (23:42)
[2021-06-09] MEDS ORDERED: cefTRIAXone SODIUM 1,000 MG/50 ML BAG IV STA (23:42)
--- NOTE | 2021-06-10 | History & Physical Report ---
Date of Service June 10, 2021 Assessment & Plan (1) Pneumonia: Plan: Patient is a pleasant 56 year old female with PMHx Lupus, Anxiety, Depression, GERD, HTN, HLD, Fibromyalgia, Celiacs Disease, CLEMENT, COPD, Sjogrens, who presents with 5 day history of worsening SOB with exertion, found to have pulse oximetry readings of the 80's at home when checking herself earlier this afternoon. Pneumonia, suspected mycoplasma pneumonia -With history of mycoplasma in addition to immunocompromised state from lupus and chronic steroid use -COVID negative, Influenza A negative -Will also check MRSA nares -CTA chest stat read noting progressive moderate bilateral airspace infiltrates, nodular, fairly symmetrical, which could reflect pneumonia or edema. No PE. A previously noted masslike consolidation in the RUL is no longer seen. -Started empirically on CTX and Azithromycin in the ED -Will continue CTX QD -Continue Azithromycin 250mg QD x4 days -Duonebs q4h PRN -Oxygen titrate >90% Lupus -Will increase home prednisone to 10mg in acute illness -Monitor for signs of adrenal insufficiency -If necessary, add IV hydrocortisone for stress dosing -Patient cannot recall her last flare up Hypokalemia -3.4 on admission -Will give 10meq KCl PO now -NSS +20meq KCl 100ml/hr x1L -recheck in AM GERD -Continue home Famotidine and Omeprazole Anxiety/Depression -Continue home Prozac -Continue home Elavil -Continue home PRN Ativan HTN -Continue home amlodipine Chronic Low Back Pain -Continue home Oxycodone 5mg q6h -Continue home Gabapentin Dispo: Med/Surg Telemetry FEN: Regular gluten free diet, NSS +20meq KCl 100ml/hr x1L DVT: Lovenox Code: Full History of Present Illness Chief Complaint: SOB, Hypoxia Primary Care Provider: Jairo Escobar MD Patient is a pleasant 56 year old female with PMHx Lupus, Anxiety, Depression, GERD, HTN, HLD, Fibromyalgia, Celiacs Disease, CLEMENT, COPD, Sjogrens, who presents with 5 day history of worsening SOB with exertion, found to have pulse oximetry readings of the 80's at home when checking herself earlier this afternoon. Patient notes that she first noticed worsening SOB on exertion while at work at [employer] while preparing for the [employer]. 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 She states that earlier this afternoon after moving around she felt SOB and checked her oxygen level and found it was in the 80's. She notes a distant history 4 years ago where she had Mycoplasma PNA and again this past February. She notes that she never feels as though she fully recovered since this past February, though has been able to completely wean herself off her any home O2. She notes that she does take prednisone daily for her Lupus at 5mg Prednisone daily, and has done so since her diagnoses at age 25, supporting her immunocompromised state. She at this time mainly notes SOB with exertion in addition to some chest tightness with exertion. She denies any NVD, chest pain, chest pressure, fever, chills, visual changes, headache, dysuria. She had her COVID-19 vaccination in July with [employer]. Med Hx: Lupus, Anxiety, Depression, GERD, HTN, HLD, Fibromyalgia, Celiacs Disease, CLEMENT, COPD, Sjogrens Surg Hx: Cardiac ablation for SVT, section, sinus surgery, laminectomy x2 and lumbar spinal fusion, tonsillectomy and adenoidectomy Soc Hx: Denies alcohol or illicit drug use. Notes hx of tobacco use 1PPD x 40 years, quit 6 years ago. Allergies Allergy/AdvReac Type Severity Reaction Status Date / Time cefazolin Allergy Intermediate ITCHING Verified 06/09/21 13:58 Penicillins Allergy Intermediate passes out Verified 06/09/21 13:58 as a child vancomycin Allergy Intermediate red man Verified 06/09/21 13:58 syndrome belimumab AdvReac Unknown N/V Verified 06/09/21 13:58 sorbitan esters AdvReac Unknown N/V Verified 06/09/21 13:58 Home Medications Medication Instructions Recorded Confirmed Type aspirin 81 mg tablet,delayed 81 mg PO QAM 07/27/18 06/09/21 History release cholecalciferol (vitamin D3) 125 5,000 unit PO QAM 07/27/18 06/09/21 History mcg (5,000 unit) tablet (Vitamin D3) folic acid 1 mg tablet 1 mg PO QAM 07/27/18 06/09/21 History hydrocortisone acetate 2.5 % [address] BID PRN 07/27/18 06/09/21 History topical cream with perineal applicator ipratropium 0.5 mg-albuterol 3 mg 3 ml INHALATION QID PRN 07/27/18 06/09/21 History (2.5 mg base)/3 mL nebulization soln nystatin 100,000 unit/gram topical 1 applic TOPICAL BID PRN 07/27/18 06/09/21 History cream nystatin 100,000 unit/mL oral 5 ml BUCCAL UD PRN 07/27/18 06/09/21 History suspension polyethylene glycol 3350 17 17 g PO HS 07/27/18 06/09/21 History gram/dose oral powder (Miralax) prednisone 5 mg tablet 5 mg PO QAM 07/27/18 06/09/21 History gabapentin 300 mg capsule 900 mg PO TID 08/24/18 06/09/21 History (Neurontin) oxycodone 5 mg tablet (Roxicodone) 5 mg PO Q6H PRN #12 tab 08/24/18 06/09/21 Rx albuterol sulfate 90 mcg/actuation 2 puff INHALATION Q4 PRN #18 gm 02/13/19 06/09/21 Rx aerosol inhaler (Ventolin HFA) Oxygen Home #1 ea 04/04/19 06/09/21 History clobetasol 0.05 % topical cream 1 appln TOP BID PRN 07/26/19 06/09/21 History famotidine 20 mg tablet 20 mg PO PM 07/26/19 06/09/21 History methocarbamol 500 mg tablet 500 mg PO Q8H PRN 07/26/19 06/09/21 History albuterol sulfate 0.63 mg/3 mL 0.63 mg INH TID #75 ml 08/28/19 06/09/21 Rx solution for nebulization amlodipine 5 mg tablet 2.5 mg PO HS tab 11/16/20 06/09/21 History amitriptyline 10 mg tablet 20 mg PO HS #60 tab 12/18/20 06/09/21 Rx omeprazole 20 mg tablet,delayed 20 mg PO HS PRN #90 tab 04/01/21 06/09/21 Rx release lorazepam 0.5 mg tablet 0.5 mg PO BID PRN #60 tab 04/15/21 06/09/21 Rx zolpidem 10 mg tablet 10 mg PO HS PRN #30 tab 06/03/21 06/09/21 Rx fluoxetine 40 mg capsule 40 mg PO QAM 06/09/21 06/09/21 History Past Med/Surg History Medical History Anemia Anxiety Celiac disease Chronic back pain Chronic constipation Chronic steroid use prednisone for lupus Closed fracture of right proximal humerus Depression Facial lesion Fibromyalgia GERD (gastroesophageal reflux disease) Hyperlipidemia Hypertension Hyponatremia Immunocompromised patient Kidney stones Leukocytosis On home oxygen therapy 2L n/c Osteoarthritis Shortness of breath Supraventricular tachycardia s/p ablation Surgical History H/O laparoscopy H/O shoulder surgery History of cardiac radiofrequency ablation for SVT @ [facility] [place]; 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 Grandmother (Paternal) Myocardial infarction Other No family history of adverse response to anesthesia Denies family history of Ovarian cancer Prostate cancer Breast cancer Colorectal cancer Social History Smoking Status: Former smoker Tobacco Type: Cigarettes Age Started Using Tobacco: 12; Age Quit Using Tobacco: 50; packs per day: 1; Years Smoked: 38; Cigarettes Per Day: 20; Second Hand Exposure: Yes (parents smoked); Hx Alcohol Use: No Hx Substance Use: No Preferred Language: Estonian Communication Ability: Effective Dual Hose Cementer Required: No Beliefs That Will Affect Care: None marital status: Current Living Situation: Other Current Living Situation Comment: lives in house with ex current occupational status: unemployed Other Information That Helps Us Care for You: No Feels Safe at Home: Yes Safety Concerns: Feels Safe At This Time Childhood Exposure to Second-Hand Smoke: Yes Dental Care, Regularly: No Physical Activity Frequency: 3-4 Times per Week Physical Activity Frequency Comment: crunches, stretching, weights Seatbelt Use: always Sunscreen Use: Yes Assistive Devices: Denture - Upper, Denture - Lower and Glasses Review of Systems Review of Systems: All systems reviewed & are unremarkable except as noted in Subjective Physical Exam Constitutional: WD/WN, vitals as above Eyes: PERRL, conjunctivae normal, anicteric sclerae ENMT: external ear and nose normal, oropharynx normal Neck: trachea midline, no thyromegaly Respiratory: normal respiratory effort, lungs clear to auscultation (on 2L NC ) Cardiovascular: RRR, no murmur, no edema Extremities: no calf tenderness Gastrointestinal (Abdomen): normal bowel sounds, soft, nontender, no hepatosplenomegaly Musculoskeletal: no cyanosis or clubbing, extremities motor strength 5/5 Skin: no rashes, warm and dry Neurologic: PERRL, EOMI, accommodation nl, no face palsy, no dysarthria Psychiatric: A+Ox3, euthymic affect Results & Data Results & Data ([facility]) Vital Signs (Past 12 Hours) Vital Signs Temp Pulse Pulse Resp BP BP Pulse Ox 06/09/21 22:25 60 16 150/75 H 94 06/09/21 21:36 83 L 06/09/21 15:31 36.6 C 61 20 160/75 H 96 Supervising Physician Co-Signing Physician Notes Attending addendum: I have physically seen this patient, have supervised the medical residents activities, and agree with the H&P unless as otherwise noted. Assessment and Plan: Pneumonia- History of mycoplasma COVID-19 negative, influenza AMB negative Ceftriaxone 2 g IV daily Azithromycin 500 mg IV daily Duonebs every 4 hours while awake and every 2 hours when necessary. Guaifenesin extended release 1200 mg p.o. twice daily Remaining orders and notations as noted Resident Activity Tracking Resident Involvement: Resident Care Provided Care Provided: Adult Hospital Medicine (1) Pneumonia Laterality: unspecified laterality Lung location: unspecified part of lung Pneumonia type: due to unspecified organism Qualified Code(s): J18.9 - Pneumonia, unspecified organism
[2021-06-10] MEDS ORDERED: POTASSIUM CHLORIDE 10 MEQ TABCR PO STA (00:17)
[2021-06-10] MEDS ORDERED: KETOROLAC TROMETHAMINE 15 MG/ML VIAL IV ONE (01:19)
[2021-06-10] MEDS ORDERED: METHOCARBAMOL 500 MG TABLET PO PRN (01:19)
[2021-06-10] MEDS ORDERED: oxyCODONE HCL IR 5 MG TAB (IMMEDIATE RELEASE) PO ONE (01:21)
[2021-06-10] MEDS ORDERED: ACETAMINOPHEN 325 MG TAB PO PRN (05:01)
[2021-06-10] MEDS ORDERED: ALBUT/IPRATROP 3MG/0.5MG NEB 3 ML VIAL NEB PRN (05:01)
[2021-06-10] MEDS ORDERED: ONDANSETRON INJ 2 MG/ML 2 ML VIAL IV PRN (05:01)
[2021-06-10] MEDS ORDERED: PANTOprazole 40 MG TAB PO PRN (05:03)
[2021-06-10] MEDS ORDERED: NSS + 20MEQ KCL 20 MEQ/1,000 ML BAG IV SCH (05:30)
[2021-06-10] MEDS: amLODIPine BESYLATE 5 MG TAB PO SCH ×2 (05:38→19:43)
[2021-06-10] MEDS: ENOXAPARIN INJ 40 MG/0.4 ML SYR SQ SCH (05:38)
[2021-06-10] MEDS: GABAPENTIN 300 MG CAP PO SCH ×3 (05:39→19:41)
[2021-06-10] MEDS: AMITRIPTYLINE HCL 10 MG TAB PO SCH ×2 (05:39→19:40)
--- NOTE | 2021-06-10 07:18 | CT Scan Report ---
CT angio chest PE protocol CLINICAL HISTORY: Shortness of breath upon exertion. Evaluate for pulmonary embolus. COMPARISON STUDY: CT chest with contrast from 02/16/2021 and portable chest from 06/09/2021 CT DOSE: 539.03 mGy.cm TECHNIQUE: CT Angio of the chest was performed.followed by image post processing with coronal, and s agittal MIP reformats. Contrast Volume: Optiray 320, 120 ml FINDINGS: Vasculature: There is homogeneous perfusion of the pulmonary vasculature bilaterally. No intraluminal filling defects or evidence for pulmonary embolus is seen. Airway: The airway is clear. No endobronchial lesion is identified. Lungs: Compared to previous CT examination, mild to moderate centrilobular emphysematous changes are again seen particularly involving the upper lobes bilaterally. There has been interval development of patchy groundglass opacities are present throughout both lungs characteristic of a viral type pneumo nitis and Covid 19 pneumonia. The lungs are otherwise clear of confluent alveolar opacities, air bron chograms or pulmonary nodules. Pleura: There is no evidence for pleural effusion. There is no evidence for pneumothorax. Mediastinum: There is no evidence for pathologic adenopathy. The heart size is within normal limits. There is again mild fusiform aneurysmal dilatation of the descending thoracic aorta again measuring 4 cm in greatest AP diameter. The descending thoracic aorta same level measures 2.8 cm. There is no ev idence for saccular aneurysm, dissection or leakage. There is no evidence for pericardial effusion. Upper abdomen:The adrenal glands are normal bilaterally. Osseous structures: There is no acute osseous pathology. Impression: 1. No CTA evidence for pulmonary embolus. 2. Interval development of patchy groundglass opacities are present throughout both lungs characteris tic of a viral type pneumonitis and early Covid 19 pneumonia. 3. Mild to moderate centrilobular emphysematous changes are again seen bilaterally. 4. Additional nonacute findings as delineated above. ACT 112: Negative or not required by law. Electronically signed by: Benjamin Salas M.D. 06/10/2021 7:16 AM
[2021-06-10] MEDS: FLUoxetine HCL 20 MG CAP PO SCH (08:17)
[2021-06-10] MEDS: ASPIRIN 81 MG ECTAB PO SCH (08:18)
[2021-06-10] MEDS: predniSONE 10 MG TABLET PO SCH (08:18)
[2021-06-10] MEDS: FOLIC ACID 1 MG TAB PO SCH (08:18)
[2021-06-10] MEDS: oxyCODONE HCL IR 5 MG TAB (IMMEDIATE RELEASE) PO PRN ×3 (08:19→22:08)
--- NOTE | 2021-06-10 14:07 | Medical Student Progress Note ---
Date of Service June 10, 2021 Assessment & Plan (1) Pneumonia: Plan: This 56-year-old woman with a history of COPD and SLE with long-term steroid use was admitted early this morning for a 5-day history of worsening dyspnea on exertion with home oxygen desaturation. Hypoxia -Secondary to CAP vs. COPD exacerbation vs. both CAP/COPD exacerbation -CTA chest did not show PE -Currently saturating at 99% 2LNC -Patient reports ambulating to restroom with mild SOB but without significant drop in sats -Titrate oxygen to >90% -Ipratroprium-albuterol q4h PRN Pneumonia -Community-acquired pneumonia; no risk factors for healthcare-associated pneumonia -CURB-65 score is 0, PSI score is 46; favorable 30-day mortality rates -Viral vs. bacterial etiology * Normal procalcitonin indicative of viral etiology * History of mycoplasma pneumonia, plus immunocompromised state from SLE and chronic steroid use * COVID negative, Influenza A negative * Nasal MRSA positive, but clinical presentation is not consistent with MRSA p neumonia, including no fever, no consolidation on CTA of chest * CTA chest demonstrates patchy ground-glass opacities characteristic of viral- type pneumonitis * Pending [employer] respiratory panel to assess for common viral etiology; if positive, consider discontinuing antibiotics -Continue ceftriaxone QD (gram + and gram - coverage) -Continue azithromycin QD (for atypical coverage) SLE -Prednisone 10mg, has been increased from home dose of 5 mg in setting of acute respiratory illness to avoid SLE flare-up -Monitor for signs of adrenal insufficiency -If necessary, add IV hydrocortisone for stress dosing Hypokalemia -3.4 on admission -10 mEq KCl bolus given -NSS +20meq KCl 100ml/hr x1L -Repeat potassium tomorrow morning (06/11/21) GERD -Continue home famotidine and omeprazole Anxiety/Depression -Continue home fluoxetine -Continue home amitriptyline -Continue home PRN lorazepam HTN -Continue home amlodipine Chronic Low Back Pain -Continue home Oxycodone 5mg q6h -Continue home Gabapentin Dispo: Med/Surg Telemetry FEN: Regular gluten free diet, NSS +20meq KCl 100ml/hr x1L DVT: Lovenox Code: Full Admission and Anticipated Discharge Date Admission Date: June 10, 2021 Supervising Attestation I also saw the patient confirmed hatch portions of the history and physical examination. I saw the patient along with the medical student and the resident physician. I agree with the impression and plan as noted above, with my progress note below. Gustavo 56-year-old female with history of lupus, Sjogren's, COPD, and hypertension presents to the emergency department yesterday with a 5-day history of worsening shortness of breath with exertion. She had a previous episode of mycoplasma pneumonia about 4 years ago and as such as both a pulse oximeter and oxygen at home. When she checked her pulse oximeter on the afternoon prior to her presentation, it was in the mid 80s. She no longer uses the oxygen but notes that she still has this available for use at home. When she is seen late this morning in her room, she is seated in bed eating lunch. She notes that she feels much better overall with less dyspnea with exertion. She reports she was able to take her oxygen off and ambulate to the b athroom in her room, maintaining pulse oximetry readings around 93-94%. She denies fever, chills, body aches. Minimal cough. Denies chest pain. Exam 135/73, 56, 18, 36.3, 99% on 2 L/min via nasal cannula Pleasant. Alert. Generally well-appearing. Lungs essentially clear, nonlabored respirations. Heart regular rate and rhythm. Data MRSA screen is positive Influenza A/B-, COVID-[address] of the chest was negative for PE. There is noted intra-abdominal patchy groundglass opacities throughout both lungs. Pneumonia, suspected mycoplasma pneumonia Continue Rocephin and azithromycin Despite positive MRSA nares, clinical presentation is not consistent with a MRSA pneumonia, so we will hold off additional antibiotics Bio fire pending Continue DuoNebs Supplemental oxygen Lupus Continue prednisone 10 mg No signs of adrenal sufficiency If such, IV hydrocortisone Hypokalemia Replete and recheck in a.m. GERD Continue home famotidine and omeprazole Anxiety/Depression HTN Chronic Low Back Pain Continue home medications Subjective No acute events overnight. Eating and drinking this morning. She reports recent headaches but feels this may be related to eye strain due to her lack of sleep last night. No chest pain or SOB. No abdominal pain, N/V/D. No vision changes. Endorses chronic low back pain, which is sufficiently treated with oxycodone. She reports getting a dry nasal cavity due to the 2 L O2 by nasal cannula and asks for humidification of the oxygen. She feels she is improving in mood and ease of breathing. Review of Systems Review of Systems: as per Subjective / HPI Physical Exam Constitutional: WD/WN, vitals as above average body habitus and cooperative Eyes: PERRL, conjunctivae normal, anicteric sclerae Respiratory: normal respiratory effort, lungs clear to auscultation (on 2L NC ) Cardiovascular: RRR, no murmur, no edema Gastrointestinal (Abdomen): nontender, nondistended Skin: no rashes, warm and dry Neurologic: moves all extremities and awake Psychiatric: A+Ox3, euthymic affect Results & Data ([facility]) Vital Signs (Past 12 Hours) Vital Signs Temp Pulse Pulse Resp BP BP Pulse Ox 06/10/21 11:10 36.7 C 54 L 16 98/62 L 92 06/10/21 07:35 48 L 06/10/21 05:42 119/72 06/10/21 05:05 55 L 06/10/21 05:01 55 L 16 94 06/10/21 04:17 61 18 107/66 97 06/10/21 04:00 55 L 11 L 96 06/10/21 02:00 54 L 14 95
[2021-06-10] MEDS: LORazepam 0.5 MG TAB PO PRN ×2 (15:40→20:05)
[2021-06-10] MEDS ORDERED: FAMOTIDINE 20 MG TAB PO SCH (21:00)
[2021-06-10] MEDS ORDERED: AZITHROMYCIN 250 MG TAB PO SCH (21:00)
[2021-06-10] MEDS ORDERED: cefTRIAXone SODIUM 2,000 MG in DEXTROSE 5% 50 ML IV SCH (21:00)
[2021-06-10 21:01] LABS: Adenovirus PCR Not Detected (NotDetected); Bordetella parapertussis PCR Not Detected (NotDetected); Bordetella pertussis PCR Not Detected (NotDetected); Chlamydia pneumoniae PCR Not Detected (NotDetected); Coronavirus 229E PCR Not Detected (NotDetected); Coronavirus CoV-2 (COVID19)PCR Not Detected (NotDetected); Coronavirus HKU1 PCR Not Detected (NotDetected); Coronavirus NL63 PCR Not Detected (NotDetected); Coronavirus OC43PCR Not Detected (NotDetected); Human Metapneumovirus PCR Not Detected (NotDetected); Influenza A PCR Not Detected (NotDetected); Influenza B PCR Not Detected (NotDetected); Mycoplasma pneumoniae PCR Not Detected (NotDetected); Parainfluenza Virus 1 PCR Not Detected (NotDetected); Parainfluenza Virus 2 PCR Not Detected (NotDetected); Parainfluenza Virus 3 PCR Not Detected (NotDetected); Parainfluenza Virus 4 PCR Not Detected (NotDetected); Respiratory Syncytial VirusPCR Not Detected (NotDetected); Rhinovirus/Enterovirus PCR Not Detected (NotDetected)
[2021-06-11] MEDS ORDERED: SIMETHICONE 80 MG CHEW PO PRN (05:14)
[2021-06-11] MEDS ORDERED: POLYETHYLENE (MIRALAX) 17 GM PACK PO PRN (05:14)
[2021-06-11] MEDS: oxyCODONE HCL IR 5 MG TAB (IMMEDIATE RELEASE) PO PRN (05:14)
--- NOTE | 2021-06-11 05:35 | Billing Data ---
Date of Service June 11, 2021 Coding Level of Care Code 53745 Initial Inpt Care Lvl 3
[2021-06-11 08:25] LABS: Basophils # (auto) 0.02 K/uL (0-0.2); Basophils % (auto) 0.3 %; Eosinophils # (auto) 0.27 K/uL (0-0.5); Eosinophils % (auto) 3.7 %; Hematocrit (blood only) 36.8 % (37-47); Hemoglobin 11.8 g/dL (12.0-16.0); Immature Granulocytes # (auto) 0.01 K/uL (0.00-0.02); Immature Granulocytes % (auto) 0.1 %; Lymphocytes % (auto) 20.6 %; Mean Corpuscular Hemoglobin 27.3 pg (25-34); Mean Corpuscular Hgb Conc 32.1 g/dL (32-36); Mean Platelet Volume 9.5 fL (7.4-10.4); Monocytes # (auto) 0.77 K/uL (0.11-0.59); Monocytes % (auto) 10.6 %; Neutrophils % (auto) 64.7 %; Platelet Count 284 K/uL (130-400); RDW Coefficient of Variation 13.8 % (11.5-14.5); Red Blood Count 4.33 M/uL (4.2-5.4); White Blood Count 7.27 K/uL (4.8-10.8)
[2021-06-11] MEDS: predniSONE 10 MG TABLET PO SCH (08:59)
[2021-06-11] MEDS: FOLIC ACID 1 MG TAB PO SCH (08:59)
[2021-06-11] MEDS: ASPIRIN 81 MG ECTAB PO SCH (08:59)
[2021-06-11] MEDS: FLUoxetine HCL 20 MG CAP PO SCH (08:59)
[2021-06-11] MEDS: GABAPENTIN 300 MG CAP PO SCH (09:00)
[2021-06-11 09:01] LABS: BUN Creatinine Ratio 8.4 (10-20); Creatinine Clr Calc Pharmacy 76.3 ml/min; Est GFR (African American) 87.5 ml/min; Est GFR (Non-African American) 75.5 ml/min; Potassium 3.8 mmol/L (3.5-5.1)
[2021-06-11] MEDS: ENOXAPARIN INJ 40 MG/0.4 ML SYR SQ SCH (09:01)
--- NOTE | 2021-06-11 11:34 | Discharge Summary ---
Date of Service June 11, 2021 Admission HPI Per Admitting Provider Patient is a pleasant 56 year old female with PMHx Lupus, Anxiety, Depression, GERD, HTN, HLD, Fibromyalgia, Celiacs Disease, CLEMENT, COPD, Sjogrens, who presents with 5 day history of worsening SOB with exertion, found to have pulse oximetry readings of the 80's at home when checking herself earlier this afternoon. 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 She states that earlier this afternoon after moving around she felt SOB and checked her oxygen level and found it was in the 80's. She notes a distant history 4 years ago where she had Mycoplasma PNA and again this past February. She notes that she never feels as though she fully recovered since this past February, though has been able to completely wean herself off her any home O2. She notes that she does take prednisone daily for her Lupus at 5mg Prednisone daily, and has done so since her diagnoses at age 25, supporting her immunocompromised state. She at this time mainly notes SOB with exertion in addition to some chest tightness with exertion. She denies any NVD, chest pain, chest pressure, fever, chills, visual changes, headache, dysuria. She had her COVID-19 vaccination in July with [facility]. Med Hx: Lupus, Anxiety, Depression, GERD, HTN, HLD, Fibromyalgia, Celiacs Disease, CLEMENT, COPD, Sjogrens Surg Hx: Cardiac ablation for SVT, section, sinus surgery, laminectomy x2 and lumbar spinal fusion, tonsillectomy and adenoidectomy Soc Hx: Denies alcohol or illicit drug use. Notes hx of tobacco use 1PPD x 40 years, quit 6 years ago. Principal Diagnosis Viral pneumonia Discharge Exam Constitutional well developed and well nourished; no acute distress Eyes + anicteric sclerae Neck normal visual inspection and trachea midline Respiratory normal respiratory effort, lungs clear to auscultation Cardiovascular RRR, no murmur, no edema Gastrointestinal (Abdomen) normal bowel sounds, soft, nontender, no hepatosplenomegaly Skin no rashes, warm and dry Neurologic moves all extremities Psychiatric A+Ox3, euthymic affect Discharge Data Allergies Allergy/AdvReac Type Severity Reaction Status Date / Time cefazolin Allergy Intermediate ITCHING Verified 06/09/21 13:58 Penicillins Allergy Intermediate passes out Verified 06/09/21 13:58 as a child vancomycin Allergy Intermediate red man Verified 06/09/21 13:58 syndrome belimumab AdvReac Unknown N/V Verified 06/09/21 13:58 sorbitan esters AdvReac Unknown N/V Verified 06/09/21 13:58 Consultations 06/09/21 23:23 ED Decision to Admit Stat Ordered Studies 06/09/21 21:27 CT angio chest PE protocol Urgent Hospital Course (1) Pneumonia: Patient is a pleasant 56 year old female with PMHx Lupus, Anxiety, Depression, GERD, HTN, HLD, Fibromyalgia, Celiacs Disease, CLEMENT, COPD, Sjogrens, who presents with 5 day history of worsening SOB with exertion, found to have pulse oximetry readings of the 80's at home when checking herself earlier this afternoon. Pneumonia, suspected mycoplasma pneumonia -With history of mycoplasma in addition to immunocompromised state from lupus and chronic steroid use -COVID negative, Influenza A negative -MRSA nares positive, bio fire negative. -CTA chest stat read noting progressive moderate bilateral airspace infiltrates, nodular, fairly symmetrical, which could reflect pneumonia or edema. No PE. A previously noted masslike consolidation in the RUL is no longer seen. -Started empirically on CTX and Azithromycin in the ED, continue Zithromax 250 mg for 3 days -Discontinue ceftriaxone Lupus -Will increase home prednisone to 10mg in acute illness, continue 10 mg for 1 week after discharge -Monitor for signs of adrenal insufficiency -If necessary, add IV hydrocortisone for stress dosing -Patient cannot recall her last flare up Hypokalemia -3.4 on admission, 3.8 on discharge -Will give 10meq KCl PO now -NSS +20meq KCl 100ml/hr x1L -recheck in AM GERD -Continue home Famotidine and Omeprazole Anxiety/Depression -Continue home Prozac -Continue home Elavil -Continue home PRN Ativan HTN -Continue home amlodipine Chronic Low Back Pain -Continue home Oxycodone 5mg q6h -Continue home Gabapentin Dispo: Home FEN: Regular gluten free diet Code: Full Total Time Total Time Spent Total Time Spent (In Minutes): 25 Discharge Plan Discharge Items Patient Disposition: Home - Self-Care Reason For Visit: HYPOXIA, PNA Discharge Diagnosis: Viral pneumonia Activity: Resume your previous activity Non-emergency contact: Primary Care Provider Call non-emergency contact if: you have any medication questions and your temperature is above 101.5 Follow-up/Referrals: Jairo Escobar MD [Primary Care Provider] - 06/18/21 2:00 pm Diet: Regular Addtl Attending Provider Instructions: You were seen in the hospital for hypoxia likely secondary to a viral pneumonia. While you were here you were treated with antibiotics to cover for atypical pneumonia like could be caused by a bacteria. In addition you were treated with oxygen therapy and your chronic steroids were upped to 10 mg to prevent lupus flareup and help with the inflammation in your lungs. At this time you are saturating oxygen very well on room air and you are deemed stable to go home. We recommend that you continue taking the 10 mg of prednisone for an additional week. We are also sending you home with 3 days worth of azithromycin to continue to cover for possible bacterial atypical pneumonia. As you have a history of COPD and your inhaler is likely , we will also send an inhaler to your pharmacy. Please follow-up with your primary care provider within 1 week. It has been a pleasure to be a part of your care and we wish you the best in your recovery. Pending Studies at Discharge: No Stand-Alone Forms: [facility], Smoking Cessation Medications and DC Order Prescriptions: New azithromycin 250 mg Tablet 250 mg PO HS Qty: 3 RF: 0 albuterol sulfate 90 mcg/actuation HFA aerosol inhaler 1 inh inhalation Q6H PRN (Reason: shortness of breath or wheezing) Qty: 6.7 RF: 3 prednisone 10 mg Tablet 10 mg PO QAM Qty: 7 RF: 0 Continued amitriptyline 10 mg tablet 20 mg PO HS Qty: 60 RF: 5 omeprazole 20 mg tablet,delayed release (DR/EC) 20 mg PO HS PRN (Reason: gastric upset) Qty: 90 RF: 3 zolpidem 10 mg tablet 10 mg PO HS PRN (Reason: Insomnia) Qty: 30 RF: 0 amlodipine 5 mg tablet 2.5 mg PO HS RF: 0 lorazepam 0.5 mg tablet 0.5 mg PO BID PRN (Reason: Anxiety) Qty: 60 RF: 0 (DME) Oxygen Home Liters Per Minute See Dose Instructions .ROUTE .MEDSUPPLY Qty: 1 RF: 0 albuterol sulfate 0.63 mg/3 mL solution for nebulization 0.63 mg INH TID Qty: 75 RF: 3 nystatin 100,000 unit/mL Suspension 5 ml BUCCAL UD PRN (Reason: thrush) RF: 0 ipratropium-albuterol 0.5 mg-3 mg(2.5 mg base)/3 mL Solution For Nebulization 3 ml INHALATION QID PRN (Reason: Shortness Of Breath) RF: 0 prednisone 5 mg Tablet 5 mg PO QAM RF: 0 aspirin 81 mg Tablet,Delayed Release (Dr/Ec) 81 mg PO QAM RF: 0 hydrocortisone acetate 2.5 % Cream With Perineal Applicator 1 applic GA BID PRN (Reason: Hemorrhoids) RF: 0 nystatin 100,000 unit/gram Cream 1 applic TOPICAL BID PRN (Reason: Rash) RF: 0 folic acid 1 mg Tablet 1 mg PO QAM RF: 0 polyethylene glycol 3350 [Miralax] 17 gram/dose Powder 17 g PO HS RF: 0 cholecalciferol (vitamin D3) [Vitamin D3] 5,000 unit Tablet 5,000 unit PO QAM RF: 0 gabapentin [Neurontin] 300 mg capsule 900 mg PO TID RF: 0 oxycodone [Roxicodone] 5 mg tablet 5 mg PO Q6H PRN (Reason: pain) Qty: 12 RF: 0 methocarbamol 500 mg tablet 500 mg PO Q8H PRN (Reason: Muscle Spasm) RF: 0 famotidine 20 mg tablet 20 mg PO PM RF: 0 clobetasol 0.05 % cream 1 appln TOP BID PRN (Reason: .) RF: 0 fluoxetine 40 mg capsule 40 mg PO QAM RF: 0 Discontinued albuterol sulfate [Ventolin HFA] 90 mcg/actuation HFA aerosol inhaler 2 puff INHALATION Q4 PRN (Reason: Shortness Of Breath) Qty: 18 RF: 5 Discharge Orders: Discharge Order (Routine); Ordered 06/11/21 Ordered By: Tip Sen Admission Data Admit Date/Time: 06/10/21 00:17 Attending Provider: Chay Campoverde Admit Provider: Ugo Alvarez Primary Care Provider: Jairo Escobar Other Providers: Andreas Conley Other Interventions: Discharge Summary Assessment (RN) Last Done: 06/11/21 11:55 Supervising Physician Co-Signing Physician Notes I also saw the patient and confirmed hatch portions of the history and physical examination. I agree with the impression and plan as noted in the resident documentation. Upon exam, she is seated in bed. She has no complaints. She has been ambulatory within her room and up into the bathroom, maintaining appropriate oxygen saturation levels without supplemental oxygen. She denies any dyspnea at rest or with activity in the room. Exam She is remained afebrile Lungs are clear without wheezing, rhonchi, or rales. Good air exchange Heart regular rate and rhythm. Assessment and plan Pneumonia Clinically improved. She remains afebrile, taking p.o. medications without difficulty, maintaining oxygen saturations without supplemental oxygen. Covid, influenza A/B, and bio fire testing all negative. MRSA nares positive, although clinically her imaging and course not consistent with a MRSA pneumonia. Patient is eager for discharge today and she meets criteria for discharge. She does have home oxygen should it be needed Complete course of Zithromax Short-term follow-up with PCP Discussed signs and symptoms which would necessitate return to hospital.
== END 2021-06-11 12:30 | disposition home or self-care (01) | DRG 195 ==
LOC: ED 15:21 → SUATTDRO 06-10 00:17 → 2W 06-10 00:17

== ENCOUNTER 2024-05-08 07:07 | Observation (INO) ==
--- NOTE | 2024-03-23 09:18 | PAT Medication Instructions ---
Medication Instructions Date of Service March 23, 2024 Home Medications Medication Instructions Recorded oxycodone-acetaminophen 5 mg-325 1 tab PO Q6H PRN pain #20 tabs 10/23/ mg tablet (Percocet) amitriptyline 10 mg tablet 20 mg (2 x 10 mg) PO HS #180 tabs 09/20/23 albuterol sulfate 90 mcg/actuation 2 puff inhalation QID PRN 10/18/23 aerosol inhaler (Ventolin HFA) shortness of breath or wheezing #6.7 grams diazepam 5 mg tablet (Valium) 5 mg PO ONCE PRN anxiety #2 tabs 02/08/24 zolpidem 10 mg tablet 10 mg PO HS PRN Insomnia #30 tabs 03/15/24 lorazepam 0.5 mg tablet (Ativan) 0.5 mg PO BID PRN Anxiety #60 tabs 03/21/24 aspirin 81 mg tablet,delayed release 81 mg PO QAM cholecalciferol (vitamin D3) 125 mcg (5,000 unit) tablet (Vitamin D3) 5,000 unit PO QAM folic acid 1 mg tablet 1 mg PO QAM polyethylene glycol 3350 17 gram/dose oral powder (Miralax) 17 g PO HS oxycodone-acetaminophen 5 mg-325 mg tablet (Percocet) 1 tab PO Q6H PRN pain gabapentin 300 mg capsule (Neurontin) 900 mg PO TID lactobacillus combination no.9 4 billion cell capsule (Adult 50 Plus Probiotic) 4,000 mmu cells PO QPM amitriptyline 10 mg tablet 20 mg (2 x 10 mg) PO HS albuterol sulfate 90 mcg/actuation aerosol inhaler (Ventolin HFA) 2 puff inhalation QID PRN shortness of breath or wheezing diazepam 5 mg tablet (Valium) 5 mg PO ONCE PRN anxiety prednisone 1 mg tablet 1 mg PO QAM fluoxetine 20 mg tablet 40 mg PO QAM zolpidem 10 mg tablet 10 mg PO HS PRN Insomnia clotrimazole 1 % topical cream 1 applic topical BID PRN Rash/Lupus clotrimazole 10 mg fawad 10 mg mucous membrane TID PRN Thrush lorazepam 0.5 mg tablet (Ativan) 0.5 mg PO BID PRN Anxiety omeprazole 20 mg tablet,delayed release 20 mg PO HS gastric upset triamcinolone acetonide 0.1 % topical cream 1 applic topical BID PRN Rash ASK your prescriber and surgeon aspirin 81 mg tablet,delayed release 81 mg PO QAM STOP taking 24 hours before surgery clotrimazole 1 % topical cream 1 applic topical BID PRN Rash/Lupus triamcinolone acetonide 0.1 % topical cream 1 applic topical BID PRN Rash DO NOT take the morning of surgery cholecalciferol (vitamin D3) 125 mcg (5,000 unit) tablet (Vitamin D3) 5,000 unit PO QAM folic acid 1 mg tablet 1 mg PO QAM Take morning of surgery With a small sip of water, OTHERWISE NOTHING TO EAT OR DRINK AFTER MIDNIGHT: oxycodone-acetaminophen 5 mg-325 mg tablet (Percocet) 1 tab PO Q6H PRN pain (if needed) gabapentin 300 mg capsule (Neurontin) 900 mg PO TID albuterol sulfate 90 mcg/actuation aerosol inhaler (Ventolin HFA) 2 puff inhalation QID PRN shortness of breath or wheezing (if needed) diazepam 5 mg tablet (Valium) 5 mg PO ONCE PRN anxiety (if needed) prednisone 1 mg tablet 1 mg PO QAM fluoxetine 20 mg tablet 40 mg PO QAM lorazepam 0.5 mg tablet (Ativan) 0.5 mg PO BID PRN Anxiety (if needed) Take evening before surgery polyethylene glycol 3350 17 gram/dose oral powder (Miralax) 17 g PO HS oxycodone-acetaminophen 5 mg-325 mg tablet (Percocet) 1 tab PO Q6H PRN pain (if needed) gabapentin 300 mg capsule (Neurontin) 900 mg PO TID lactobacillus combination no.9 4 billion cell capsule (Adult 50 Plus Probiotic) 4,000 mmu cells PO QPM amitriptyline 10 mg tablet 20 mg (2 x 10 mg) PO HS albuterol sulfate 90 mcg/actuation aerosol inhaler (Ventolin HFA) 2 puff inhalation QID PRN shortness of breath or wheezing (if needed) diazepam 5 mg tablet (Valium) 5 mg PO ONCE PRN anxiety (if needed) zolpidem 10 mg tablet 10 mg PO HS PRN Insomnia (if needed) clotrimazole 10 mg fawad 10 mg mucous membrane TID PRN Thrush (if needed) lorazepam 0.5 mg tablet (Ativan) 0.5 mg PO BID PRN Anxiety (if needed) omeprazole 20 mg tablet,delayed release 20 mg PO HS gastric upset Other Notes If you have any questions please call us at [phone] or [phone] or [phone] or [phone]
--- NOTE | 2024-04-03 13:27 | Anesthesiology Consultation ---
Date of Service April 03, 2024 Assessment & Plan (1) Encounter for pre-operative examination: - Outpatient joint assessment: Pt currently scheduled for inpatient pathway. If surgeon requests review for outpatient joint pathway, patient is not recommended candidate for outpatient joint program from anesthesia standpoint based on available information. - PCP visit (03/31/24): "Acute sinusitis.. Advised patient to continue supportive care with nasal saline rinses, OTC Mucinex twice daily and a spoonful of honey every couple hours as needed for cough. Will treat her with azithromycin for 5 days. She is also requesting Tessalon Perles which are ordered for her today as well. She will let me know if she has any worsening issues otherwise follow-up with her PCP office and other specialists as scheduled" > Patient seen at PAT 04/03/24- notes almost complete resolution in symptoms- has one more day remaining of antibiotics. DOS not until 05/08/24. Patient advised to contact PAT/surgeon if symptoms not resolved prior to surgery. - Awaiting upcoming nephrology visit ([facility], appt 04/11). Patient otherwise acceptable risk for surgery. Chart Review Chart Review: Patient seen in Pre Admission Testing Teaching & Discussion Pre-Anesthesia Teaching/Discussion Notes: Instructed NPO after midnight before surgery,except medications with 15 cc of water. Medication instructions provided according to the [facility] guidelines. History Surgery Operation Date: 05/08/24 12:15 Proposed Procedures p Left Total Hip Arthroplasty Anterior - Stuart Aguirre, Height/Weight Height: 5 ft 9 in Weight: 75.9 kg Allergies Allergy/AdvReac Type Severity Reaction Status Date / Time Penicillins AdvReac Severe Syncope as Verified 03/29/24 16:39 a child vancomycin AdvReac Severe Red Man Verified 03/29/24 16:39 Syndrome belimumab AdvReac Intermediate Nausea/Vomi Verified 03/29/24 16:39 ting cefazolin AdvReac Intermediate Itching Verified 03/29/24 16:39 sorbitan esters AdvReac Intermediate Nausea/Vomi Verified 03/29/24 16:39 ting Medications Home Medications Medication Instructions Recorded Confirmed Last Taken aspirin 81 mg tablet,delayed 81 mg PO QAM 07/27/18 03/29/24 11/23/21 release cholecalciferol (vitamin D3) 125 5,000 unit PO QAM 07/27/18 03/29/24 11/23/21 mcg (5,000 unit) tablet (Vitamin D3) folic acid 1 mg tablet 1 mg PO QAM 07/27/18 03/29/24 11/23/21 polyethylene glycol 3350 17 17 g PO HS 07/27/18 03/29/24 11/22/21 gram/dose oral powder (Miralax) oxycodone-acetaminophen 5 mg-325 1 tab PO Q6H PRN pain #20 tabs 10/23/21 03/29/24 11/22/21 mg tablet (Percocet) gabapentin 300 mg capsule 900 mg PO TID 03/31/23 03/29/24 Unknown (Neurontin) lactobacillus combination no.9 4 4,000 mmu cells PO QPM 03/31/23 03/29/24 Unknown billion cell capsule (Adult 50 Plus Probiotic) amitriptyline 10 mg tablet 20 mg (2 x 10 mg) PO HS #180 tabs 09/20/23 03/29/24 Unknown albuterol sulfate 90 mcg/actuation 2 puff inhalation QID PRN 10/18/23 03/29/24 Unknown aerosol inhaler (Ventolin HFA) shortness of breath or wheezing #6.7 grams diazepam 5 mg tablet (Valium) 5 mg PO ONCE PRN anxiety #2 tabs 02/08/24 03/29/24 Unknown prednisone 1 mg tablet 1 mg PO QAM 02/16/24 03/29/24 Unknown fluoxetine 20 mg tablet 40 mg PO QAM 02/18/24 03/29/24 Unknown zolpidem 10 mg tablet 10 mg PO HS PRN Insomnia #30 tabs 03/15/24 03/29/24 Unknown clotrimazole 1 % topical cream 1 applic topical BID PRN Rash/Lupus 03/21/24 03/29/24 Unknown clotrimazole 10 mg fawad 10 mg mucous membrane TID PRN 03/21/24 03/29/24 Unknown Thrush lorazepam 0.5 mg tablet (Ativan) 0.5 mg PO BID PRN Anxiety #60 tabs 03/21/24 03/29/24 Unknown omeprazole 20 mg tablet,delayed 20 mg PO HS gastric upset 03/21/24 03/29/24 Unknown release triamcinolone acetonide 0.1 % 1 applic topical BID PRN Rash 03/21/24 03/29/24 Unknown topical cream potassium chloride 20 mEq 20 meq PO DAILY #30 tabs 03/24/24 03/29/24 Unknown tablet,extended release nystatin 100,000 unit/mL oral 5 ml PO QID #200 mL 03/29/24 03/29/24 Unknown suspension azithromycin 250 mg tablet See Rx Instructions PO .COMPLEX #6 03/31/24 03/31/24 Unknown tabs benzonatate 200 mg capsule 200 mg PO TID #30 caps 03/31/24 03/31/24 Unknown Past Medical History Medical History ADHD Anemia Anticardiolipin antibody syndrome Reason for baby ASA per patient Anxiety Arachnoiditis d/t failed lumbar fusion Carotid arterial disease [facility] cardio records from 2021 note, "She had a carotid ultrasound many years ago and it did not show any serious disease" Celiac disease Chronic back pain Chronic constipation Chronic steroid use Chronic prednisone for lupus (currently 1mg daily) COPD (chronic obstructive pulmonary disease) Depression Fibromyalgia GERD (gastroesophageal reflux disease) Hx MRSA infection 2020 - while visiting hospital, was acquired > completed tx, no issues since Hx of migraines Hyperlipidemia Hypertension IBS (irritable bowel syndrome) Kidney stones Osteoarthritis Paroxysmal supraventricular tachycardia s/p ablation SLE (systemic lupus erythematosus) Dr Reid Rheumat[facility] Supraventricular tachycardia Thoracic ascending aortic aneurysm [facility] Vascular surgery monitoring Chest CT 12/2023: There is mild aneurysmal dilatation of the ascending thoracic aorta which measures up to 4.2 cm in diameter. Exercise / Class Metabolic Activity II 4-5 Yardwork/Stairs/Walk up hill (one FS: No CP, no SOB) Past Family History Family History Mother Family hx colonic polyps Father Myocardial infarction Grandmother (Maternal) No problems noted. Grandmother (Paternal) Myocardial infarction Other No family history of adverse response to anesthesia Denies family history of Ovarian cancer Prostate cancer Breast cancer Colorectal cancer Past Surgical History Surgical History History of cardiac radiofrequency ablation for SVT (2009) History of section History of colonoscopy History of dilatation and curettage History of endoscopic sinus surgery History of esophagogastroduodenoscopy (EGD) History of hand surgery right hand History of laminectomy x2 History of laparoscopy "Checking for endometriosis" History of lumbar spinal fusion History of neck surgery left lymph node removal d/t englargement (benign) History of removal of cyst ? Eyelid History of surgery on arm Right arm mass excision (10/23/2021): LMA#[facility] History of tonsillectomy and adenoidectomy History of tooth extraction all teeth S/P ORIF (open reduction internal fixation) fracture Right Humerus 2018 d/t fall on ice Status post wrist surgery right wrist pin in place Past Anesthesia History No Hx of Anesthesia Complications and No Family Hx of Anesthesia Complications History of PONV No Hx of PONV and Hx of Motion Sickness Social History Smoking Status: Former smoker Do You Dip or Chew Tobacco: No Smoking End Date: Quit 10 years ago Hx Alcohol Use: No Hx Substance Use: No substance use type: does not use Review of Systems Patient denies chest pain, shortness of breath, dyspnea on exertion, fever, chills, cough, wheezing, palpitations. Physical Exam Vital Signs BP 143/88 P 58 TEMP 98.0 SP02 96%RA RESP 18 Physical Full cervical extension range of motion. Full TMJ range of motion. TMD 3 finger breaths Mallampati Score I Dentition: edentulous, full upper/lower dentures Lungs: clear throughout to auscultation Cardiac: regular rate and rhythm, no murmurs noted Spine: normal Carotid arteries: negative bruit Extremities: no LE edema Lab Results Anesthesia Preop Results Results Anesthesia Widget: WBC 6.82 K/ul (4.8-10.8) 04/03/24 Hgb 11.6 g/dl (12.0-16.0) L 04/03/24 Hct 35.7 % (37.0-47.0) L 04/03/24 Plt 260 K/uL (130-400) 04/03/24 Na 132 mmol/L (136-145) L 04/03/24 K 4.1 mmol/L (3.5-5.1) 04/03/24 Cl 100 mmol/L (98-107) 04/03/24 CO2 26 mmol/L (21-32) 04/03/24 BUN 12 mg/dl (6-23) 04/03/24 Creat 0.89 mg/dl (0.6-1.2) 04/03/24 Glucose Level 89 mg/dl (70-99(Fasting)) 04/03/24 PT 10.2 Seconds (9.0-12.0) 04/03/24 PTT 25 Seconds (21-31) 04/03/24 INR 0.9 (0.9-1.1) 04/03/24 TSH 2.566 uIu/ml (0.300-4.500) 03/21/24 Blood Type O Positive 04/03/24 Antibody Screen NEGATIVE 04/03/24 Testing Electrocardiogram Date: 04/03/24 SB at 56bpm. Compared to 10/20/2021 ECG, TWI more evident in anterior leads per chief nuclear medicine technologist comparison. Chest X-Ray Date: 04/03/24 FINDINGS: Cardiomediastinal and hilar silhouettes are within normal limits. Pulmonary emphysema. No pneumothorax, pleural effusion or airspace consolidation. Bones appear grossly intact. Right proximal humeral ORIF hardware. IMPRESSION: Emphysema without acute processes of the chest. Echocardiogram Date: 08/14/21 EF 55-60%. No RWMA. Mild TR. RVSP normal. Mildly dilated ascending aorta. Aortic root diameter 4.0cm (unchanged compared to 2020 per report). Other Testing Chest CT Date: 12/24/23 FINDINGS: Thyroid: Imaged portions of the thyroid gland are normal in size and attenuation. Thoracic aorta: There is mild aneurysmal dilatation of the ascending thoracic aorta which measures up to 4.2 cm in diameter. The remainder of the thoracic aorta is normal in caliber, and the arch demonstrates standard 3-vessel anatomy. Heart: The heart is normal in size and without pericardial effusion. There are scattered coronary artery calcifications. Lungs and pleural spaces: There is [id number] emphysematous change. No airspace consolidation or pleural effusion is identified. The trachea and central ovaries are clear. Foci of parenchymal scarring are seen throughout both lungs. Right lower lobe bronchus opacities have resolved as compared to the 06/18/2023 examination. Mediastinum: There is no mediastinal lymphadenopathy. Concepcion: Not well assessed without IV contrast. Axillae: There is no axillary lymphadenopathy. Upper abdomen: Partially visualized upper abdominal viscera is within normal limits. Skeletal structures: No lytic or blastic bony lesions are seen. Postsurgical change is noted in the right proximal humerus. IMPRESSION: Emphysema. Right lower lobe groundglass opacities have resolved as compared to 06/18/2023. Return to annual lung cancer screening.
--- NOTE | 2024-05-04 09:31 | History & Physical Report ---
Date of Service May 04, 2024 Assessment & Plan (1) Avascular necrosis of bone of left hip: We will proceed with a left anterior total of arthroplasty. Postoperatively she will will be started on aspirin for DVT prophylaxis and kept overnight hospital for postop medical management. She plans to [facility] upon discharge. History of Present Illness Chief Complaint: Avascular necrosis of the left hip. Primary Care Provider: Jairo Escobar MD Nargis is a pleasant 58-year-old female who has been dealing with increasing left hip pain. It has become more and more severe. She is unable to work because of her left hip pain. She has pain with internal and external rotation of her hip. MRI and clinical examination were diagnostic for avascular necrosis of the left hip. After failed conservative treatment, she has elected to proceed with a left anterior total of arthroplasty. Allergies Allergy/AdvReac Type Severity Reaction Status Date / Time Penicillins AdvReac Severe Syncope as Verified 05/02/24 15:19 a child vancomycin AdvReac Severe Red Man Verified 05/02/24 15:19 Syndrome belimumab AdvReac Intermediate Nausea/Vomi Verified 05/02/24 15:19 ting cefazolin AdvReac Intermediate Itching Verified 05/02/24 15:19 sorbitan esters AdvReac Intermediate Nausea/Vomi Verified 05/02/24 15:19 ting Home Medications Medication Instructions Recorded Confirmed Type aspirin 81 mg tablet,delayed 81 mg PO QAM 07/27/18 05/02/24 History release cholecalciferol (vitamin D3) 125 5,000 unit PO QAM 07/27/18 05/02/24 History mcg (5,000 unit) tablet (Vitamin D3) folic acid 1 mg tablet 1 mg PO QAM 07/27/18 05/02/24 History polyethylene glycol 3350 17 17 g PO HS 07/27/18 05/02/24 History gram/dose oral powder (Miralax) oxycodone-acetaminophen 5 mg-325 1 tab PO Q6H PRN pain #20 tabs 10/23/21 05/02/24 Rx mg tablet (Percocet) gabapentin 300 mg capsule 900 mg PO TID 03/31/23 05/02/24 History (Neurontin) lactobacillus combination no.9 4 4,000 mmu cells PO QPM 03/31/23 05/02/24 History billion cell capsule (Adult 50 Plus Probiotic) amitriptyline 10 mg tablet 20 mg (2 x 10 mg) PO HS #180 tabs 09/20/23 05/02/24 Rx albuterol sulfate 90 mcg/actuation 2 puff inhalation QID PRN 10/18/23 05/02/24 Rx aerosol inhaler (Ventolin HFA) shortness of breath or wheezing #6.7 grams prednisone 1 mg tablet 1 mg PO QAM 02/16/24 05/02/24 History fluoxetine 20 mg tablet 40 mg PO QAM 02/18/24 05/02/24 History zolpidem 10 mg tablet 10 mg PO HS PRN Insomnia #30 tabs 03/15/24 05/02/24 Rx clotrimazole 1 % topical cream 1 applic topical BID PRN Rash/Lupus 03/21/24 05/02/24 History clotrimazole 10 mg fawad 10 mg mucous membrane TID PRN 03/21/24 05/02/24 History Thrush omeprazole 20 mg tablet,delayed 20 mg PO HS gastric upset 03/21/24 05/02/24 History release triamcinolone acetonide 0.1 % 1 applic topical BID PRN Rash 03/21/24 03/29/24 History topical cream nystatin 100,000 unit/mL oral 5 ml PO QID #200 mL 03/29/24 05/02/24 Rx suspension potassium chloride 20 mEq 20 meq PO DAILY #30 tabs 04/25/24 05/02/24 Rx tablet,extended release lorazepam 0.5 mg tablet (Ativan) 0.5 mg PO BID PRN Anxiety #60 tabs 05/01/24 05/02/24 Rx Past Med/Surg History Problem List Raynaud's disease Monoclonal gammopathy of undetermined significance Avascular necrosis of bone of left hip Chronic venous insufficiency Insomnia Greater trochanteric bursitis of right hip Hypertension (Chronic) SLE (systemic lupus erythematosus) Hypothyroid Sjogrens syndrome Sciatica Hyperlipidemia COPD (chronic obstructive pulmonary disease) Interstitial cystitis Cervical radiculopathy ADHD Anxiety Medical History Paroxysmal supraventricular tachycardia s/p ablation Carotid arterial disease [facility] cardio records from 2021 note, "She had a carotid ultrasound many years ago and it did not show any serious disease" Hx MRSA infection 2020 - while visiting hospital, was acquired > completed tx, no issues since IBS (irritable bowel syndrome) Anticardiolipin antibody syndrome Reason for baby ASA per patient Hx of migraines Arachnoiditis d/t failed lumbar fusion ADHD Thoracic ascending aortic aneurysm [facility] Vascular surgery monitoring Chest CT 12/2023: There is mild aneurysmal dilatation of the ascending thoracic aorta which measures up to 4.2 cm in diameter. SLE (systemic lupus erythematosus) Dr [facility] COPD (chronic obstructive pulmonary disease) Anxiety Chronic steroid use Chronic prednisone for lupus (currently 1mg daily) Osteoarthritis Fibromyalgia Chronic back pain Kidney stones Chronic constipation Celiac disease GERD (gastroesophageal reflux disease) Anemia Depression Hypertension Hyperlipidemia Supraventricular tachycardia Surgical History History of surgery on arm Right arm mass excision (10/23/2021): LMA#4 at [facility] S/P ORIF (open reduction internal fixation) fracture Right Humerus 2018 d/t fall on ice History of section History of removal of cyst ? Eyelid History of laparoscopy "Checking for endometriosis" History of dilatation and curettage History of hand surgery right hand Status post wrist surgery right wrist pin in place History of laminectomy x2 History of lumbar spinal fusion History of colonoscopy History of esophagogastroduodenoscopy (EGD) History of tooth extraction all teeth History of tonsillectomy and adenoidectomy History of neck surgery left lymph node removal d/t englargement (benign) History of endoscopic sinus surgery History of cardiac radiofrequency ablation for SVT (2009) Family History Mother Family hx colonic polyps Father Myocardial infarction Grandmother (Maternal) No problems noted. Grandmother (Paternal) Myocardial infarction Other No family history of adverse response to anesthesia Denies family history of Ovarian cancer Prostate cancer Breast cancer Colorectal cancer Social History Smoking Status: Former smoker Tobacco Type: Cigarettes Age Started Using Tobacco: 12; Age Quit Using Tobacco: 50; packs per day: 1; Second Hand Exposure: No; Do You Dip or Chew Tobacco: No; Hx Alcohol Use: No Hx Substance Use: No Preferred Language: Belarusian Communication Ability: Effective Dental Service Chief Required: No Beliefs That Will Affect Care: None marital status: Current Living Situation: Family Current Living Situation Comment: lives in house with ex current occupational status: employed and unemployed Feels Safe at Home: Yes Childhood Exposure to Second-Hand Smoke: Yes Diet: regular Dental Care, Regularly: No Physical Activity Frequency: 3-4 Times per Week Physical Activity Frequency Comment: crunches, stretching, weights Seatbelt Use: always Sunscreen Use: Yes Assistive Devices: Denture - Upper, Denture - Lower and Glasses Review of Systems All systems reviewed & are unremarkable except as noted in HPI & below. Physical Exam On physical exam of the left hip, she has decreased range of motion. She has pa in with forced internal/external rotation. Most of her pain is located in the groin.. Constitutional WD/WN, vitals as above Eyes PERRL, conjunctivae normal, anicteric sclerae ENMT external ear and nose normal, oropharynx normal Neck trachea midline, no thyromegaly Respiratory normal respiratory effort Cardiovascular RRR, no murmur, no edema Gastrointestinal (Abdomen) normal bowel sounds, soft, nontender, no hepatosplenomegaly Psychiatric A+Ox3, euthymic affect Results & Data Results & Data Laboratory Results . Diagnostic Findings MRI of the left hip does show signs of avascular necrosis.. PG Care Time/CCT Total # of Minutes Spent Total Time Spent with Patient: Total time spent is greater than 50% in coordination of care (as documented) at patient's floor/unit and/or counseling patient: Coding Level of Care Code None Diagnoses Avascular necrosis of bone of left hip M87.052
[~2024-05-08 07:07] MED LIST changes: -CEFAZOLIN 2000MG 2,000 MG/15 ML SYR IV SCH; -LR 15ML/HR IV SCH; +ROPIVACAINE 0.5% 5 MG/ML 30 ML VIAL ONE
[2024-05-08] MEDS ORDERED: MIDAZOLAM HCL 1 MG/ML 2ML VIAL ONE (07:33)
[2024-05-08] MEDS ORDERED: fentaNYL citrate PF 100 MCG/2 ML VIAL ONE (07:35)
[2024-05-08] MEDS: ACETAMINOPHEN 500 MG TAB PO SCH ×2 (07:46→13:30)
[2024-05-08] MEDS: FAMOTIDINE 20 MG TAB PO SCH (07:46)
[2024-05-08] MEDS: GABAPENTIN 600 MG DOSE PO SCH (07:46)
[2024-05-08] MEDS: LR 60ML/HR IV SCH (07:46)
[2024-05-08] MEDS: LR 500ML BOLUS, THEN 15ML/HR IV SCH (07:58)
[2024-05-08] MEDS: dexAMETHasone**PF** 10 MG/ML VIAL IV SCH (07:59)
--- NOTE | 2024-05-08 08:01 | History & Physical Bridge Note ---
Date of Service May 08, 2024 History & Physical Bridge Note I have examined the patient, reviewed the History & Physical and in the interval since the performance of the History & Physical I have noted the following changes of clinical significance: no changes noted
[2024-05-08] MEDS ORDERED: Nursing to Pharmacy Communication SCH (08:15)
[2024-05-08] MEDS ORDERED: ONDANSETRON INJ 2 MG/ML 2 ML VIAL IV PRN ×2 (08:35→12:40)
[2024-05-08] MEDS ORDERED: HYDROmorphone INJ 1 MG/ML SYRINGE IV PRN (08:35)
[2024-05-08] MEDS ORDERED: KETOROLAC 30 MG/ML VIAL IV PRN (08:35)
[2024-05-08] MEDS ORDERED: ePHEDrine sulfate 50 MG/ML AMP IV PRN (08:35)
[2024-05-08] MEDS ORDERED: ATROPINE SULFATE 0.1 MG/ML 10ML SYR IV PRN (08:35)
[2024-05-08] MEDS ORDERED: PROPOFOL IV EMULSION 10 MG/ML 20 ML VIAL IV ONE ×2 (08:41→10:11)
[2024-05-08] MEDS ORDERED: diphenhydrAMINE 50 MG/ML VIAL ONE (08:41)
[2024-05-08] MEDS: TRANEXAMIC ACID 1,000 MG **IV Pre-op IV SCH (08:52)
[2024-05-08] MEDS: ceFAZolin 2000MG 2,000 MG/15 ML SYR IV SCH ×2 (09:05→17:12)
[2024-05-08] MEDS: ROPIV 0.5% 246mg, Ketorolac 30mg, EPINEPHrine 0.5mg in NSS INFIL SCH (09:34)
[2024-05-08] MEDS: ORTHO JOINT ANESTHETIC ONE (09:34)
[2024-05-08] MEDS ORDERED: PHENYLEPHRINE 100MCG/ML 5ML SYR ONE ×2 (09:54→10:11)
[2024-05-08] MEDS: TRANEXAMIC ACID 1,000 MG **IV Intra-op IV SCH (10:08)
--- NOTE | 2024-05-08 10:12 | Operative Report ---
PG Post Operative Report Pre & Post Diagnosis Operation Date: 05/08/24 09:00 Pre-Op Diagnosis: Avascular Necrosis Hip Left Post-Op Diagnosis: Avascular Necrosis Hip Left I identified the patient and participated in the time-out.: Yes Procedure Operation Date: 05/08/24 09:00 Actual Procedures p Left Anterior Total Hip Arthroplasty(Left) - Stuart Aguirre DO Surgeon Stuart Aguirre DO Parts Department Manager Stuart Rapp PA-C Estimated Blood Loss 150 Findings Consistent with Post-Op Diagnosis Specimens Left femoral head Description of Procedure Implants used I used a ZimmerBiomet total hip arthroplasty system with a size 4 standard offset Avenir Complete stem, a 50 mm G7 cup with a 25mm screw, an E1 polyethylene liner, a 36 mm ceramic head with a +3.5 neck. Nargis arrived at the hospital for the above procedure. She was seen in the preoperative holding area and the operative extremity was identified and signed. She was given a spinal anesthetic, a preoperative antibiotic, and TXA. She was then taken back to the operating room and laid on the table in the supine position. She was given basic sedation. The operative leg was secured to a Puristst leg positioner. The hip was then prepped and draped in sterile fashion. A timeout was done and the patient and the operative extremity was properly identified. An anterior approach was used. Dissection was taken down through the fascia and the tensor muscle belly was retracted laterally and the rectus was retracted medially. The circumflex vessels were identified and ligated. The capsule was then incised and tagged for later repair. The femoral neck was then cut and the femoral head was removed. The acetabulum was exposed. Time was spent doing a complete circumferential labral release. Sequential reaming of the acetabulum up to a size 49 reamer was done. Final reamings were done under fluoroscopy to ensure appropriate version. A Biomet 50 mm G7 cup was then impacted into place. A single 25 mm screw was placed. The E1 polyethylene liner was then snapped into place. Surrounding soft tissues were then injected with 100 cc of an orthopedic pain control cocktail. The proximal femur was then exposed. Sequential broaching up to a size 4 broach was done. Off that broach a size 36 head with a +3.5 neck was trialed. The hip was reduced and fluoroscopic images showed anatomic alignment of the implants in acceptable length. The broach was removed. The final size 4 standard offset Avenir Complete stem was then impacted into place. A ceramic 36 mm head with a +3.5 neck was then impacted onto the stem and the hip was reduced. Final fluoroscopic images showed anatomic alignment of the hip. The capsule was then closed with #1 Vicryl suture. A dilute betadyne lavage was then done for 3 minutes. The joint was then irrigated with normal saline solution. The fascia was closed with #1 PDS suture. Skin was closed with 2-0 Vicryl, felicia, and a Silverlon dressing. She was then transferred to a hospital bed and taken to the post anesthesia care unit in stable condition. She tolerated the procedure well. Stuart Rapp PA-C, was present for the entire procedure. He was critical for patient positioning, prepping, draping, retraction exposure, wound closure and application of sterile dressing. I attest to the content of the Intraoperative Record and any orders documented therein. Any exceptions are noted below.
--- NOTE | 2024-05-08 10:41 | Fluoroscopy Report ---
FL hip LT 1V CLINICAL HISTORY: LEFT ANTERIOR HIP COMPARISON STUDY: MRI of the left hip March 02, 2024. Left hip radiograph 6 radiographs February 07. FLUOROSCOPY TIME: 14 seconds. Ka, r: 0.9433 mGy FLUOROSCOPIC IMAGES: 1 FINDINGS: Fluoroscopy was provided during total anterior left hip arthroplasty. Alignment is anatomic . Hardware is intact. No fractures are identified by fluoroscopy. There are no unexpected radiopaque foreign bodies. Acetabular screw is in place. IMPRESSION: Fluoroscopy provided during total anterior left hip arthroplasty. ACT 112: Negative or not required by law. Electronically signed by: Bhargav Kwan M.D. 05/08/2024 10:40 AM
--- NOTE | 2024-05-08 11:17 | Anesthesiology Progress Note ---
Date of Service May 08, 2024 Anesthesia Post Procedure Vital Signs Vital Signs: Temp Pulse Pulse Resp BP Pulse Ox O2 Del Method 05/08/24 11:10 36.3 C L 65 12 127/42 L 100 Room Air 05/08/24 11:00 66 20 132/61 96 Room Air 05/08/24 10:50 64 12 136/78 99 Oxymask 05/08/24 10:40 67 12 110/70 100 Oxymask 05/08/24 10:30 36.1 C L 68 16 135/62 97 Oxymask 05/08/24 07:34 36.6 C 58 L 16 173/92 H 94 Room Air O2 Flow Rate 05/08/24 11:10 05/08/24 11:00 05/08/24 10:50 2 05/08/24 10:40 4 05/08/24 10:30 6 05/08/24 07:34 Pain Intensity Left Hip: Pain Intensity: 2 Transfer of Care Handoff Completed per policy Notes Mental Status: alert / awake / arousable Patient Amnestic to Procedure: Yes Nausea / Vomiting: adequately controlled Pain: adequately controlled Airway Patency, RR, SpO2: stable & adequate BP & HR: stable & adequate Hydration State: stable & adequate Neuraxial Anesthesia: was administered and sensory block is resolving Anesthetic Complications: no major complications apparent
--- NOTE | 2024-05-08 11:43 | XRay Report ---
XR hip 1V LT w pelvis HISTORY: 58 years-old Female IN PACU - Post Surgical [arthroplasty COMPARISON: Fluoroscopic images of same day TECHNIQUE: AP view of the pelvis with crosstable lateral view left hip FINDINGS: Left hip arthroplasty with lateral skin felicia, expected postoperative soft tissue swelling and deep tissue air. Fusion hardware of the lower lumbar spine. No acute fracture, dislocation or unexpected opaque foreign body. IMPRESSION: Left hip arthroplasty with expected postoperative changes. ACT 112: Negative or not required by law. The above report was generated using voice recognition software. It may contain grammatical, syntax o r spelling errors. Electronically signed by: Lukas Garcia M.D. 05/08/2024 11:41 AM
[2024-05-08] MEDS ORDERED: CLOTRIMAZOLE 1% CR 15 GM TUBE TOP PRN (12:40)
[2024-05-08] MEDS ORDERED: NALOXONE HCL 0.4 MG/1 ML VIAL/CARP IV PRN (12:40)
[2024-05-08] MEDS ORDERED: CLOTRIMAZOLE 10 MG TROCHE BUCCAL PRN (12:40)
[2024-05-08] MEDS ORDERED: TRIAMCINOLONE ACET 0.1% CR 15 GM TUBE TOP PRN (12:40)
[2024-05-08] MEDS ORDERED: bisacodyL 10 MG SUPP PR PRN (12:40)
[2024-05-08] MEDS ORDERED: METOCLOPRAMIDE HCL INJ 5 MG/ML 2 ML VIAL IV PRN (12:40)
[2024-05-08] MEDS ORDERED: ALBUTEROL HFA 8 GM INHALER INH PRN (12:40)
[2024-05-08] MEDS ORDERED: MAGNESIUM HYDROXIDE SUSP 30 ML UDC PO PRN (12:40)
[2024-05-08] MEDS: NYSTATIN SUSP 500,000 U/5 ML UDC PO SCH (13:29)
[2024-05-08] MEDS: HYDROmorphone INJ 0.5 MG/0.5 ML SYR IV PRN (13:30)
[2024-05-08] MEDS: oxyCODONE HCL IR 5 MG TAB (IMMEDIATE RELEASE) PO PRN (13:30)
[2024-05-08] MEDS: GABAPENTIN 300 MG CAP PO SCH (13:52)
[2024-05-08] MEDS: ASPIRIN 81 MG ECTAB PO SCH (22:11)
[2024-05-08] MEDS: SENNA 8.6 MG TAB PO SCH (22:12)
[2024-05-08] MEDS: PANTOprazole 40 MG TAB PO SCH (22:12)
[2024-05-08] MEDS: ZOLPIDEM TARTRATE 5 MG TAB PO PRN (22:12)
[2024-05-08] MEDS: DOCUSATE SODIUM 100 MG CAP PO SCH (22:12)
[2024-05-08] MEDS: LORazepam 0.5 MG TAB PO PRN (22:12)
[2024-05-08] MEDS: AMITRIPTYLINE HCL 10 MG TAB PO SCH (22:46)
[2024-05-09 04:30] VITALS: O2SAT 95
--- NOTE | 2024-05-09 06:57 | Orthopedic Progress Note ---
Date of Service May 09, 2024 Assessment & Plan (1) Status post left hip replacement: Overall she is doing fairly well. She is not having much pain in the left hip. She will be seen by physical therapy today for ambulation and range of motion exercises. She is on aspirin for DVT prophylaxis. She can be discharged to home later today. She will follow-up with orthopedics in 2 weeks. Yang Barillas was seen and examined at bedside this morning. Overall she is doing fairly well. She is not having much pain in the left hip. She has been up and ambulating to the bathroom. She has no complaints.. Review of Systems All systems reviewed & are unremarkable except as noted in HPI & below. Physical Exam On physical exam the left hip, the dressing is clean and dry. Her leg is out full extension. She has active dorsiflexion plantarflexion of her left ankle.. Results & Data Results & Data Laboratory Results . Diagnostic Findings Postoperative x-rays of the left hip show the prosthesis to be in anatomic alignment without any evidence of fracture, dislocation, or loosening.. PG Care Time/CCT Total # of Minutes Spent Total Time Spent with Patient: Total time spent is greater than 50% in coordination of care (as documented) at patient's floor/unit and/or counseling patient: Coding Level of Care Code 98156 Post Operative Follow-Up Diagnoses Status post left hip replacement Z96.642
--- NOTE | 2024-05-09 06:58 | Discharge Summary ---
Date of Service May 09, 2024 Admission HPI (Per Admitting) Nargis is a pleasant 58-year-old female who has been dealing with increasing left hip pain. It has become more and more severe. She is unable to work because of her left hip pain. She has pain with internal and external rotation of her hip. MRI and clinical examination were diagnostic for avascular necrosis of the left hip. After failed conservative treatment, she has elected to proceed with a left anterior total of arthroplasty. Admission Exam (Per Admitting) On physical exam of the left hip, she has decreased range of motion. She has pain with forced internal/external rotation. Most of her pain is located in the groin.. Principal Diagnosis Same as "Discharge Diagnosis" noted below under Discharge Instructions. Discharge Exam On physical exam the left hip, the dressing is clean and dry. Her leg is out full extension. She has active dorsiflexion plantarflexion of her left ankle.. Discharge Data Procedures Performed Operation Date: 05/08/24 09:00 Actual Procedures p Left Anterior Total Hip Arthroplasty(Left) - Stuart Aguirre DO Ordered Studies 05/08/24 09:00 FL hip LT 1V Routine Hospital Course (1) Status post left hip replacement: On May 08, 2024 Nargis arrived at [facility] and underwent a left hip replacement without complication. She had a spinal anesthetic. Postoperatively she was started on aspirin for DVT prophylaxis and transferred to the general orthopedic floors. Her hospital course was uneventful. On postop day #1, her vital signs were stable and her pain was well-controlled. She was able to participate well with physical therapy doing ambulation and range of motion exercises. She was then discharged to home. She will follow-up with orthopedics in 2 weeks. PG Care Time/CCT Total # of Minutes Spent Total Time Spent with Patient: Total time spent is greater than 50% in coordination of care (as documented) at patient's floor/unit and/or counseling patient: Discharge Plan Discharge Items Patient Disposition: Home - Self-Care Reason For Visit: Avascular Necrosis Hip Left Discharge Diagnosis: Left hip replacement Activity: Per Instructions section Non-emergency contact: Surgeon Call non-emergency contact if: your wound has increased redness and your wound has increased drainage Follow-up/Referrals: Jairo Escobar MD [Primary Care Provider] - Diet: Regular Addtl Attending Provider Instructions: Activity and Therapy Recommendations: * If you are using [facility] then therapy will be provided at your home until they feel you have accomplished all of your goals. * If you are using [facility] then Physical Therapy will be provided until they feel you are ready to start Outpatient Physical Therapy. * If you are not using home therapy then Outpatient Physical Therapy should start about 3-5 days from your day of surgery. Therapy will last about 6-10 weeks * You were shown a series of exercises in the hospital. Do these exercises three times each day including the exercises you were shown in physical therapy. * Get up and walk several times each day.~ For the first four weeks, try not to stand or walk for more than one hour at a time. If you do stand or walk for more than one hour, you will not hurt anything, but your leg will likely swell.~~ * As you feel comfortable, you may change from the walker or crutches to a cane and~then to independent walking. Medications: * Narcotic You will likely be sent home from the hospital with a prescription for the narcotic pain medication that worked best throughout your stay. * Cefadroxil -take the antibiotic twice a day for 10 days to help prevent infection. * Aspirin Most patients will be required to take Aspirin 81mg twice a day for 6 weeks after surgery. This is obtained [id number] and a prescription is not necessary. * Other medications may be prescribed for specific circumstances. If you have any questions, please call the office at . * Resume previous home medications unless otherwise instructed TEDs/Elastic Stockings: The white elastic stockings help limit swelling and prevent blood clots from forming in your legs. The more you wear them, the more they work. Wear them for six weeks. Dressing Care: Leave the Silverlon dressing in place for 7 days. After 7 days you may remove the dressing. If the incision is not draining then you may leave the felicia open to air. If there is a little bit of drainage or if the felicia are getting stuck on your clothing then cover the incision with a dry dressing. The felicia will be removed at your 2 week follow-up appointment. Showering: You may shower with the Silverlon dressing in place. Do not let the shower spray hit the dressing directly. Pat the Silverlon dressing dry. If the dressing becomes wet underneath, then simply remove the dressing. Keep the incision dry until you are 7 days out from the day of surgery. After 7 days you may remove the Silverlon dressing and shower with the felicia exposed. Let soapy water run over the felicia and pat them dry. Do not scrub or soak the incision. Diet: You may resume your previous diet. Things To Watch For: * Drainage from the incision site that occurs more than one week after your surgery. * Increased redness at the incision site. * Fever above 102 degrees Fahrenheit. * Unusual chest pain or shortness of breath. * Call [facility] at with any of the above problems Follow-Up Visit: Follow-up with Dr. Aguirre's PA (Stuart Rapp) 2-3 weeks after your day of surgery. He will remove your felicia and answer any questions. If you have any additional questions or concerns, Dr Aguirre is usually in the office at the same time and will be available An appointment was probably scheduled when you signed-up for surgery in the office. If you have any questions call Office Instructions: More detailed instructions as well as Frequently Asked Questions were provided in a folder by our office when you signed-up for surgery. Please review these instructions when you get home. If you have any further questions or concerns, please feel free to call the office at [phone] Pending Studies at Discharge: No Stand-Alone Forms: [facility] [place], Smoking Cessation Medications and DC Order Prescriptions: New oxycodone 5 mg tablet 5 mg PO Q6H PRN (Reason: pain) Qty: 30 0RF cefadroxil 500 mg capsule 500 mg PO BID 10 Days Qty: 20 0RF aspirin [Adult Aspirin Regimen] 81 mg tablet,delayed release (DR/EC) 81 mg PO BID Qty: 84 0RF No Action amitriptyline 10 mg tablet 20 mg PO HS Qty: 180 3RF albuterol sulfate [Ventolin HFA] 90 mcg/actuation HFA aerosol inhaler 2 puff inhalation QID PRN (Reason: shortness of breath or wheezing) Qty: 6.7 3RF zolpidem 10 mg tablet 10 mg PO HS PRN (Reason: Insomnia) Qty: 30 2RF potassium chloride 20 mEq tablet extended release 20 meq PO DAILY Qty: 30 2RF lorazepam [Ativan] 0.5 mg tablet 0.5 mg PO BID PRN (Reason: Anxiety) Qty: 60 0RF Adult 50 Plus Probiotic 4 billion cell capsule 4,000 mmu cells PO QPM Rx Instructions: administer with a meal prednisone 1 mg tablet 1 mg PO QAM fluoxetine 20 mg tablet 40 mg PO QAM nystatin 100,000 unit/mL suspension 5 ml PO QID Qty: 200 0RF Rx Instructions: swish and spit aspirin 81 mg Tablet,Delayed Release (Dr/Ec) 81 mg PO QAM folic acid 1 mg Tablet 1 mg PO QAM polyethylene glycol 3350 [Miralax] 17 gram/dose Powder 17 g PO HS cholecalciferol (vitamin D3) [Vitamin D3] 5,000 unit Tablet 5,000 unit PO QAM gabapentin [Neurontin] 300 mg capsule 900 mg PO TID Patient Comments: Patient uses 1-800mg TID along with 100mg-TID oxycodone-acetaminophen [Percocet] 5-325 mg tablet 1 tab PO Q6H PRN (Reason: pain) Qty: 20 0RF clotrimazole 10 mg fawad 10 mg mucous membrane TID PRN (Reason: Thrush) triamcinolone acetonide 0.1 % cream 1 applic topical BID PRN (Reason: Rash) clotrimazole 1 % cream 1 applic topical BID PRN (Reason: Rash/Lupus) omeprazole 20 mg tablet,delayed release (DR/EC) 20 mg PO HS Admission Data Admit Date/Time: 05/08/24 10:33 Attending Provider: Stuart Aguirre Admit Provider: Stuart Aguirre Primary Care Provider: Jairo Escobar
[2024-05-09 07:24] VITALS: BP 137/70; PULSE 74; RESP 16; TEMP 97.9
[2024-05-09] MEDS: INFLUENZA VACC TS2024-25(6m+)/PF (IIV3) 0.5mL Syr IM ONE (08:30)
[2024-05-09] MEDS: FLUoxetine HCL 20 MG CAP PO SCH (08:31)
[2024-05-09] MEDS: dexAMETHasone 4 MG TAB PO SCH (08:31)
[2024-05-09] MEDS: MULTIVITAMIN TAB PO SCH (08:32)
[2024-05-09] MEDS: POTASSIUM CHLORIDE CRTAB 20 MEQ TABCR PO SCH (08:36)
== END 2024-05-09 11:48 | disposition home or self-care (01) ==
LOC: 3E 07:07 → ASU 07:07

== ENCOUNTER 2024-07-28 13:11 | Inpatient (IN) ==
--- NOTE | 2024-07-28 13:57 | Emergency Department Note ---
History of Present Illness General Chief complaint: Flu Like Symptoms Stated complaint: ACHY BODY, SOB, HEADACHE, CONGESTION, FEVER, LUPUS Time Seen by Provider: 07/28/24 13:28 History of Present Illness Patient is a 59-year-old female with past medical history significant for lupus, hypertension, hypothyroidism, Sjogren's syndrome, Raynaud's disease, dyslipidemia, COPD, ADHD, anxiety, interstitial cystitis, IBS, among other chronic medical problems who presents to the emergency department for evaluation of left-sided abdominal pain, fever, cough, shortness of breath and malaise over the last week. Symptoms started on Wednesday, 4 days ago, with a pain in the left lower quadrant. She recently had left total hip replacement surgery and thought the pain was coming from her hip, but as the week went on, her symptoms of gotten worse. She describes it as a shooting pain in the left lower quadrant. She reports pressure when she has to urinate, and increased constipation from her baseline. She is on fiber, MiraLAX and probiotics regularly, but had to use a glycerin suppository and fleets enema to have a bowel movement today. She does report some mild straining but denies any blood in the stool. Additionally, she reports upper abdominal bloating and nausea. She developed backache, malaise, congestion, cough, shortness of breath and fever, Tmax 103 F orally yesterday. She also has been monitoring her oxygen saturations at home with a home pulse ox probe and states that with exertion they were dropping into the mid 80s. She is otherwise in the low 90s at rest. She thought that the nausea was related to starting Abilify 3 days ago, so she stopped this. She has taken Tylenol and ibuprofen, and used saline nasal sprays and used a humidifier for her symptoms. She does report a history of mycoplasma pneumonia in the past and is concerned about this. She does report being vaccinated for influenza and COVID in the past. With regards to her autoimmune disease, she was taken off of the methotrexate in the fall, and prednisone has been tapered down to 1 mg/day. She is on oxycodone chronically for pain. Home Medications Medication Instructions Recorded Confirmed Type aspirin 81 mg tablet,delayed 81 mg PO QAM 07/27/18 07/28/24 History release cholecalciferol (vitamin D3) 125 5,000 unit PO QAM 07/27/18 07/28/24 History mcg (5,000 unit) tablet (Vitamin D3) folic acid 1 mg tablet 1 mg PO QAM 07/27/18 07/28/24 History polyethylene glycol 3350 17 17 g PO HS 07/27/18 07/28/24 History gram/dose oral powder (Miralax) gabapentin 300 mg capsule 900 mg PO TID 03/31/23 07/28/24 History (Neurontin) lactobacillus combination no.9 4 4,000 mmu cells PO QPM 03/31/23 07/28/24 History billion cell capsule (Adult 50 Plus Probiotic) amitriptyline 10 mg tablet 20 mg (2 x 10 mg) PO HS #180 tabs 09/20/23 07/28/24 Rx albuterol sulfate 90 mcg/actuation 2 puff inhalation QID PRN 10/18/23 07/28/24 Rx aerosol inhaler (Ventolin HFA) shortness of breath or wheezing #6.7 grams prednisone 1 mg tablet 1 mg PO QAM 02/16/24 07/28/24 History fluoxetine 20 mg tablet 40 mg PO QAM 02/18/24 07/28/24 History clotrimazole 1 % topical cream 1 applic topical BID PRN Rash/Lupus 03/21/24 07/28/24 History clotrimazole 10 mg fawad 10 mg mucous membrane TID PRN 03/21/24 07/28/24 History Thrush triamcinolone acetonide 0.1 % 1 applic topical BID PRN Rash 03/21/24 07/28/24 History topical cream potassium chloride 20 mEq 20 meq PO DAILY #30 tabs 04/25/24 07/28/24 Rx tablet,extended release oxycodone 5 mg tablet 5 mg PO Q6H PRN pain #30 tabs 05/08/24 07/28/24 Rx zolpidem 10 mg tablet 10 mg PO HS PRN Insomnia #30 tabs 06/05/24 07/28/24 Rx omeprazole 20 mg tablet,delayed 20 mg PO HS gastric upset #90 tabs 06/14/24 07/28/24 Rx release triamcinolone acetonide 0.1 % 1 applic topical BID #60 mL 06/14/24 07/28/24 Rx lotion lorazepam 0.5 mg tablet (Ativan) 0.5 mg PO BID PRN Anxiety #60 tabs 06/30/24 07/28/24 Rx nystatin 100,000 unit/mL oral 5 ml PO QID PRN [place] 07/28/24 07/28/24 History suspension Allergies Allergy/AdvReac Type Severity Reaction Status Date / Time Penicillins AdvReac Severe Syncope as Verified 05/08/24 07:25 a child vancomycin AdvReac Severe Red Man Verified 05/08/24 07:25 Syndrome belimumab AdvReac Intermediate Nausea/Vomi Verified 05/08/24 07:25 ting cefazolin AdvReac Intermediate Itching Verified 05/08/24 07:25 sorbitan esters AdvReac Intermediate Nausea/Vomi Verified 05/08/24 07:25 ting Past Med/Surg History Problem List (Updated 07/28/24 @ 17:16 by Alexandr Bloom PA-C) Hypoxia Left lower quadrant abdominal pain (Acute) Hypoxemia (Acute) Shortness of breath (Acute) Depression Status post left hip replacement (~04/2024) Raynaud's disease Monoclonal gammopathy of undetermined significance Avascular necrosis of bone of left hip Chronic venous insufficiency Insomnia Greater trochanteric bursitis of right hip Hypertension (Chronic) SLE (systemic lupus erythematosus) Hypothyroid Sjogrens syndrome Sciatica Hyperlipidemia COPD (chronic obstructive pulmonary disease) Interstitial cystitis Cervical radiculopathy ADHD Anxiety Medical History Paroxysmal supraventricular tachycardia s/p ablation Carotid arterial disease [facility] note, "She had a carotid ultrasound many years ago and it did not show any serious disease" Hx MRSA infection 2020 - while visiting hospital, was acquired > completed tx, no issues since IBS (irritable bowel syndrome) Anticardiolipin antibody syndrome Reason for baby ASA per patient Hx of migraines Arachnoiditis d/t failed lumbar fusion ADHD Thoracic ascending aortic aneurysm [facility] monitoring Chest CT 12/2023: There is mild aneurysmal dilatation of the ascending thoracic aorta which measures up to 4.2 cm in diameter. SLE (systemic lupus erythematosus) Dr [facility] COPD (chronic obstructive pulmonary disease) Anxiety Chronic steroid use Chronic prednisone for lupus (currently 1mg daily) Osteoarthritis Fibromyalgia Chronic back pain Kidney stones Chronic constipation Celiac disease GERD (gastroesophageal reflux disease) Anemia Hypertension Hyperlipidemia Supraventricular tachycardia Surgical History History of surgery on arm Right arm mass excision (10/23/2021): LMA#4 [place] [facility] [place]P ORIF (open reduction internal fixation) fracture Right Humerus 2018 d/t fall on ice History of section History of removal of cyst ? Eyelid History of laparoscopy "Checking for endometriosis" History of dilatation and curettage History of hand surgery right hand Status post wrist surgery right wrist pin in place History of laminectomy x2 History of lumbar spinal fusion History of colonoscopy History of esophagogastroduodenoscopy (EGD) History of tooth extraction all teeth History of tonsillectomy and adenoidectomy History of neck surgery left lymph node removal d/t englargement (benign) History of endoscopic sinus surgery History of cardiac radiofrequency ablation for SVT (2009) Family History Mother Family hx colonic polyps Father Myocardial infarction Grandmother (Maternal) No problems noted. Grandmother (Paternal) Myocardial infarction Other No family history of adverse response to anesthesia Denies family history of Ovarian cancer Prostate cancer Breast cancer Colorectal cancer Social History Smoking Status: Former smoker Tobacco Type: Cigarettes Age Started Using Tobacco: 12; Age Quit Using Tobacco: 50; packs per day: 1; Second Hand Exposure: No; Do You Dip or Chew Tobacco: No; Hx Alcohol Use: No Hx Substance Use: No Preferred Language: Filipino Communication Ability: Effective Aws Solution Architect Required: No Beliefs That Will Affect Care: None marital status: Current Living Situation: Family Current Living Situation Comment: lives in house with ex current occupational status: employed and unemployed Feels Safe at Home: Yes Childhood Exposure to Second-Hand Smoke: Yes Diet: regular Dental Care, Regularly: No Physical Activity Frequency: 3-4 Times per Week Physical Activity Frequency Comment: crunches, stretching, weights Seatbelt Use: always Sunscreen Use: Yes Assistive Devices: Denture - Upper, Denture - Lower and Glasses Review of Systems A total of 10 systems reviewed and were otherwise negative Physical Exam Vital Signs Vital Signs - 24 hr 07/28/24 13:21 07/28/24 13:31 07/28/24 15:08 Temperature 36.4 C L Temperature Source Oral Pulse Rate 75 Pulse Rate [Finger] 63 63 Respiratory Rate 18 16 16 Respiratory Effort / Characteristics Non-Labored Spontaneous Non-Labored Spontaneous Respiratory Depth Normal Normal Blood Pressure 152/57 H Blood Pressure [Right Arm] 181/89 H 152/93 H Blood Pressure Mean 88 Blood Pressure Mean [Right Arm] 119 112 Blood Pressure Position [Right Arm] Semi-fowlers Semi-fowlers Pulse Oximetry 96 98 94 Oxygen Delivery Method Room Air Room Air Room Air Oxygen Flow Rate Sepsis Recent Fever Within 48 Hours No Sepsis New/Unexplained Change in Mental Status N/A Sepsis Action Taken by Nursing No Action Required Oxygen Flow Rate - Titration Pulse Oximetry Post Tiitration 07/28/24 16:28 07/28/24 16:37 07/28/24 17:08 Temperature 36.7 C Temperature Source Oral Pulse Rate 67 Pulse Rate [Finger] Respiratory Rate Respiratory Effort / Characteristics Respiratory Depth Blood Pressure Blood Pressure [Right Arm] Blood Pressure Mean Blood Pressure Mean [Right Arm] Blood Pressure Position [Right Arm] Pulse Oximetry 85 L Oxygen Delivery Method Room Air Oxygen Flow Rate Sepsis Recent Fever Within 48 Hours Sepsis New/Unexplained Change in Mental Status Sepsis Action Taken by Nursing Oxygen Flow Rate - Titration 2 Pulse Oximetry Post Tiitration 94 07/28/24 17:22 Temperature Temperature Source Pulse Rate Pulse Rate [Finger] 66 Respiratory Rate 21 Respiratory Effort / Characteristics Respiratory Depth Blood Pressure Blood Pressure [Right Arm] 177/103 H Blood Pressure Mean Blood Pressure Mean [Right Arm] 127 Blood Pressure Position [Right Arm] Semi-fowlers Pulse Oximetry 98 Oxygen Delivery Method Nasal Cannula Oxygen Flow Rate 2 Sepsis Recent Fever Within 48 Hours Sepsis New/Unexplained Change in Mental Status Sepsis Action Taken by Nursing Oxygen Flow Rate - Titration Pulse Oximetry Post Tiitration CONSTITUTIONAL: Nontoxic, afebrile 59-year-old female who is awake and alert and seated on the gurney in no acute distress. EYES: Pupils equal, round, reactive to light and accommodation. EOMs intact without nystagmus. Sclera are anicteric. ENT: Tympanic membranes intact, with normal landmarks. External canals are clear. Oral and nasopharynx are clear. Mucous membranes are moist, no lesions, tongue and gums appear normal. NECK: Supple without lymphadenopathy. No thyromegaly. No meningeal signs. Full active range of motion without discomfort. CARDIOVASCULAR: Regular rate and rhythm. Peripheral pulses easy to palpable. RESPIRATORY: Breath sounds equal and clear to auscultation. GI: Bowel sounds are present. Abdomen is soft, mildly distended, tender to palpation in the left mid abdomen. No guarding or rebound. MUSCULOSKELETAL: Full range of motion of extremities x 4 with good strength. No cyanosis, edema, joint tenderness or swelling. No deformity. INTEGUMENTARY: No lesions or rash, normal skin turgor. Course Course The patient was seen and assessed as above. External medical records are reviewed. She presents to the emergency department for evaluation of left-sided abdominal pain, with associated fever, malaise, cough, shortness of breath over the last week. IV lock was initiated. Laboratory studies were collected. She was hydrated with normal saline solution and treated with Zofran IV for nausea. Upper respiratory BioFire was obtained. CBC with differential, CMP, lipase, and urinalysis were collected. Chest x-ray and CT scan of the abdomen pelvis were performed. Diagnostics, as interpreted by me: Laboratory studies: Mild leukopenia, white count 3700. H&H 11.1 and 33.6, mildly low, but chronic and stable for the patient. No thrombocytopenia. Mildly low sodium at 131, otherwise electrolytes, renal functions and liver functions are normal. Lipase is not elevated. Urine microscopy not overtly concerning for infection, and likely contaminated. Upper respiratory BioFire is negative. Single high-sensitivity troponin is not elevated. EKG: Normal sinus rhythm 66 bpm, no acute ischemic changes. Cardiac monitoring: An order was placed for continuous cardiac monitoring. The monitor shows a NSR at a rate of 63 per my interpretation. Imaging studies: Chest x-ray clear, no infiltrate or consolidation. CT scan of the abdomen and pelvis with IV contrast notes no acute intra-abdominal infection, bowel wall thickening or obstruction. Moderate colonic fecal retention noted. There is postoperative changes consistent with a left total hip arthroplasty with a 10 cm fluid collection. Nursing staff contacted me that the patient was requesting something for headache and was given Tylenol p.o. Nursing staff contacted to notify me that the patient's oxygen saturation had dropped to the mid 80s on a few occasions. Patient ED presentation and CT scan findings were reviewed with her personal orthopedic surgeon, Dr. Aguirre. Reviewed laboratory studies as well. His suspicion is that the fluid collection is consistent with postoperative state, and not indicative of acute infection, given lack of hip pain and ambulatory status. He does not feel that acute surgical intervention to explant the total hip arthroplasty is indicated at this time. He feels that outpatient follow-up with regards to this finding is appropriate. I went to reassess the patient, and again, she had dropped into the mid 80s, while at rest in the bed. Oxygen was applied by nasal cannula. All laboratory and diagnostic imaging studies were reviewed with the patient at length. Etiology of her hypoxemia is unclear at this time, but patient is not safe for discharge as she is requiring oxygen. I do think that she has a viral upper respiratory illness, this may be causing a mild COPD exacerbation. Again, chest x-ray does not show any infiltrate. Certainly CT scan of chest is desirable, but unfortunately patient cannot have another IV contrast dose as she has already received [address] PE considered, given her autoimmune disease. Patient discussed with working manager, and consultation placed with the [facility] hospitalist service for further care and management. I did review the patient with Dr. Roca. Pending his evaluation, he asked for bilateral lower extremity ultrasounds. He did also request that inflammatory markers be added to the blood work, this was done as well. These are pending at time of dictation. The patient was reassessed and updated with regard to the hospitalist plan. She is still complaining of a headache, and was ordered Toradol IV. She is also requesting humidified oxygen, secondary to dry mucous membranes from her Sjogren's. This was ordered. She is stable, pending hospitalist evaluation. Differential diagnosis: UTI, pyelonephritis, kidney stone, diverticulitis, bronchitis, pneumonia, viral illness, COPD exacerbation, among others. Administered Medications Discontinued Medications Acetaminophen (Acetaminophen 500 Mg Tab) 1,000 mg PO NOW STA Stop: 07/28/24 15:55 Last Admin: 07/28/24 15:58 Dose: 1,000 mg Documented By: MMF Sodium Chloride (Nss) 1,000 mls @ 999 mls/hr IV .Q1H1M ANGELY Stop: 07/28/24 14:49 Last Infusion: 07/28/24 15:47 Dose: Infused Documented By: Admin: 07/28/24 14:12 Dose: 999 mls/hr Documented By: MMF Ioversol (Optiray 320 100ml) 90 ml IV ONCE ONE Stop: 07/28/24 15:36 Last Admin: 07/28/24 15:35 Dose: 90 ml Documented By: TI Ondansetron HCl (Ondansetron Inj 2 Mg/Ml 2 Ml Vial) 4 mg IV NOW STA Stop: 07/28/24 13:48 Last Admin: 07/28/24 14:13 Dose: 4 mg Documented By: DANIELLE Medical Decision Making Differential Diagnosis See ED Course. Medical Records Attestation: I reviewed the patient's medical records. Home Medications Current Medication List: was personally reviewed by me Laboratory Data Attestation: I reviewed the patient's lab results. 07/28/24 13:41 07/28/24 13:41 Lab Results 07/28/24 07/28/24 Range/Units 13:33 13:41 WBC 3.74 L (4.8-10.8) K/ul RBC 3.90 L (4.20-5.40) M/uL Hgb 11.1 L (12.0-16.0) g/dl Hct 33.6 L (37.0-47.0) % MCV 86.2 (80.0-100.0) fL MCH 28.5 (25.0-34.0) pg MCHC 33.0 (32.0-36.0) g/dL RDW Std Deviation 40.3 (36.4-46.3) fL RDW Coeff of Zach 12.8 (11.5-14.5) % Plt Count 240 (130-400) K/uL MPV 9.9 (9.4-12.4) fL Immature Gran % (Auto) 0.3 % Neut % (Auto) 49.7 % Lymph % (Auto) 30.7 % [place] % (Auto) 14.2 % Eos % (Auto) 4.8 % Baso % (Auto) 0.3 % Neut # (Auto) 1.86 (1.40-6.50) K/uL Lymph # (Auto) 1.15 L (1.20-3.40) K/uL [place] # (Auto) 0.53 (0.11-0.59) K/uL Eos # (Auto) 0.18 (0.00-0.50) K/uL Baso # (Auto) 0.01 (0.00-0.20) K/uL Immature Gran # (Auto) 0.01 (0.01-0.20) K/uL Sodium 131 L (136-145) mmol/L Potassium 4.0 (3.5-5.1) mmol/L Chloride 98 (98-107) mmol/L Carbon Dioxide 25 (21-32) mmol/L Anion Gap 8 (3-11) BUN 10 (6-23) mg/dl Creatinine 0.87 (0.6-1.2) mg/dl Est Cr Clr Drug Dosing 72.8 ml/min eGFR 76.70 BUN/Creatinine Ratio 11.5 (10-20) Glucose 76 (70-99(Fasting)) mg/dl Calcium 9.1 (8.6-10.3) mg/dl Total Bilirubin 0.5 (0.2-1.0) mg/dl AST 25 (13-39) U/L ALT 13 (7-52) U/L Alkaline Phosphatase 76 (34-104) U/L Troponin I High Sens 4.9 (0-14) pg/ml Total Protein 7.3 (6.0-8.3) gm/dl Albumin 4.1 (3.4-5.0) gm/dl Globulin 3.2 (2.5-4.0) gm/dl Albumin/Globulin Ratio 1.3 (0.9-2) Lipase 38 (11-82) U/L Urine Color Yellow Urine Appearance Cloudy A (Clear) Urine pH 6.5 (4.5-7.5) Ur Specific [place] 1.023 (1.000-1.030) Urine Protein 1+ H (Negative) Urine Glucose (UA) Negative (Negative) Urine Ketones Trace H (Negative) Urine Blood Negative (Negative) Urine Nitrite Negative (Negative) Urine Bilirubin Negative (Negative) Urine Urobilinogen Negative (Negative) Ur Leukocyte Esterase 1+ H (Negative) Urine WBC (Auto) 0-5 (0-5) /hpf Urine RBC (Auto) 0-2 (0-2) /hpf U Hyaline Cast (Auto) >20 H (0-2) /lpf U Epithel Cells (Auto) >20 H (0-2) /hpf Urine Bacteria (Auto) None Seen (None Seen) Hyaline Casts Present A (None Presnt) /lpf Adenovirus (PCR) Not Detected (NotDetected) B. pertussis DNA (PCR) Not Detected (NotDetected) B.parapertussis DNA PCR Not Detected (NotDetected) C. pneumoniae DNA (PCR) Not Detected (NotDetected) Coronavirus OC43 (PCR) Not Detected (NotDetected) Coronavirus HKU1 (PCR) Not Detected (NotDetected) Coronavirus 229E (PCR) Not Detected (NotDetected) SARS-CoV-2 (PCR) Not Detected (NotDetected) Coronavirus NL63 (PCR) Not Detected (NotDetected) Human Metapneumovir PCR Not Detected (NotDetected) Influenza Type A (PCR) Not Detected (NotDetected) Influenza Type B (PCR) Not Detected (NotDetected) M. pneumoniae (PCR) Not Detected (NotDetected) Parainfluenza 1 (PCR) Not Detected (NotDetected) Parainfluenza 2 (PCR) Not Detected (NotDetected) Parainfluenza 3 (PCR) Not Detected (NotDetected) Parainfluenza 4 (PCR) Not Detected (NotDetected) RSV (PCR) Not Detected (NotDetected) Entero/Rhino (PCR) Not Detected (NotDetected) Imaging Data Attestation: I personally reviewed and interpreted this imaging study as follows: Radiologist's Impression: Chest X-Ray 07/28/24 13:47 XR chest 1V portable CLINICAL HISTORY: FEVER, MALAISE TECHNIQUE: Single frontal radiograph of the chest was obtained. Comparison: Comparison is made to rib series 05/05/2024 FINDINGS: Right humeral hardware is seen. Calcified aortic knob is seen. The lungs are clear. No evidence of pleural effusion or pneumothorax. IMPRESSION: No acute chest disease. ACT 112: Negative or not required by law. Electronically signed by: Ruslan Menon M.D. 07/28/2024 2:31 PM Abdomen/Pelvis CT 07/28/24 13:[address] WITH IV CONTRAST CT DOSE: 1140.69 mGy.cm HISTORY: Acute left lower quadrant abdominal pain with fever LLQ ABD PAIN, CONSTIPATION, FEVER TECHNIQUE: Multiaxial CT images of the abdomen and pelvis were performed following the IV administration of 90 cc of Optiray, A dose lowering technique was utilized adhering to the principles of ALARA. COMPARISON STUDY: CT abdomen and pelvis 01/20/2024, hip radiographs 05/08/2024 FINDINGS: Clear lung bases. No pneumatosis or pneumoperitoneum. Unremarkable spleen, pancreas, gallbladder, liver and adrenal glands. Patency of the hepatic and portal veins. 4 mm nonobstructing calculus at the interpolar left kidney. Punctate nonobstructing calculus of the inferior pole right kidney. Subcentimeter hypodensities of the kidneys are too small to characterize, likely benign. Unremarkable urinary bladder, uterus and adnexa. Atherosclerosis of the aorta. No lymphadenopathy. No bowel obstruction or bowel wall thickening. There is moderate colonic fecal retention. Noninflamed appendix. Degenerative and postoperative changes of the spine. Left hip arthroplasty demonstrates satisfactory alignment. Anterior to the femoral neck and proximal diaphysis there is an intramuscular collection involving the proximal thigh demonstrating peripheral enhancement measuring 3.9 x 3.3 x 10 cm on 329 series 3 with moderate adjacent inflammatory stranding. No associated hip joint effusion. Posterior interbody mirela and screw fusion with discectomy at L5-S1. Chronic appearing mild wedge deformities at T11 and L3. IMPRESSION: 1. Left hip arthroplasty with adjacent intramuscular left proximal thigh peripherally enhancing 10 cm fluid collection. Sterility cannot be determined by imaging alone however in the clinical setting of a reported acute fever, abscess is a differential consideration. 2. No bowel obstruction or bowel wall thickening. Normal appendix. 3. Nonobstructing bilateral nephrolithiasis. ACT 112: Negative or not required by law. The above report was generated using voice recognition software. It may contain grammatical, syntax or spelling errors. Electronically signed by: Lukas Garcia M.D. 07/28/2024 3:53 PM MDM Narrative See ED Course. Impression & Plan Shortness of breath, Hypoxemia, Left lower quadrant abdominal pain Discharge Plan Visit Data Chief Complaint: Flu Like Symptoms Stated Complaint: ACHY BODY, SOB, HEADACHE, CONGESTION, FEVER, LUPUS ED Provider: Chan Pulido ED Midlevel Provider: Shaun Cline Discharge Problem: Shortness of breath, Hypoxemia, Left lower quadrant abdominal pain Patient Disposition: Being Evaluated by Hospitalist Forms Stand Alone Forms: [employer] Prescriptions Prescriptions: No Action amitriptyline 10 mg tablet 20 mg PO HS Qty: 180 3RF albuterol sulfate [Ventolin HFA] 90 mcg/actuation HFA aerosol inhaler 2 puff inhalation QID PRN (Reason: shortness of breath or wheezing) Qty: 6.7 3RF potassium chloride 20 mEq tablet extended release 20 meq PO DAILY Qty: 30 2RF zolpidem 10 mg tablet 10 mg PO HS PRN (Reason: Insomnia) Qty: 30 2RF lorazepam [Ativan] 0.5 mg tablet 0.5 mg PO BID PRN (Reason: Anxiety) Qty: 60 0RF Adult 50 Plus Probiotic 4 billion cell capsule 4,000 mmu cells PO QPM Rx Instructions: administer with a meal prednisone 1 mg tablet 1 mg PO QAM fluoxetine 20 mg tablet 40 mg PO QAM omeprazole 20 mg tablet,delayed release (DR/EC) 20 mg PO HS Qty: 90 3RF triamcinolone acetonide 0.1 % lotion 1 applic topical BID Qty: 60 0RF aspirin 81 mg Tablet,Delayed Release (Dr/Ec) 81 mg PO QAM folic acid 1 mg Tablet 1 mg PO QAM polyethylene glycol 3350 [Miralax] 17 gram/dose Powder 17 g PO HS cholecalciferol (vitamin D3) [Vitamin D3] 5,000 unit Tablet 5,000 unit PO QAM gabapentin [Neurontin] 300 mg capsule 900 mg PO TID Patient Comments: Patient uses 1-800mg TID along with 100mg-TID clotrimazole 10 mg fawad 10 mg mucous membrane TID PRN (Reason: Thrush) triamcinolone acetonide 0.1 % cream 1 applic topical BID PRN (Reason: Rash) clotrimazole 1 % cream 1 applic topical BID PRN (Reason: Rash/Lupus) oxycodone 5 mg tablet 5 mg PO Q6H PRN (Reason: pain) Qty: 30 0RF nystatin 100,000 unit/mL suspension 5 ml PO QID PRN (Reason: [place]) Rx Instructions: swish and spit Referrals Referrals: Jairo Escobar MD [Primary Care Provider] -
[2024-07-28 14:08] LABS: Basophils # (auto) 0.01 K/uL (0.00-0.20); Basophils % (auto) 0.3 %; Eosinophils # (auto) 0.18 K/uL (0.00-0.50); Eosinophils % (auto) 4.8 %; Hematocrit (blood only) 33.6 % (37.0-47.0); Hemoglobin 11.1 g/dl (12.0-16.0); Immature Granulocytes # (auto) 0.01 K/uL (0.01-0.20); Immature Granulocytes % (auto) 0.3 %; Lymphocytes # (auto) 1.15 K/uL (1.20-3.40); Lymphocytes % (auto) 30.7 %; Mean Corpuscular Hemoglobin 28.5 pg (25.0-34.0); Mean Corpuscular Volume 86.2 fL (80.0-100.0); Mean Platelet Volume 9.9 fL (9.4-12.4); Monocytes # (auto) 0.53 K/uL (0.11-0.59); Monocytes % (auto) 14.2 %; Neutrophils # (auto) 1.86 K/uL (1.40-6.50); Neutrophils % (auto) 49.7 %; Platelet Count 240 K/uL (130-400); RDW Coefficient of Variation 12.8 % (11.5-14.5); RDW Standard Deviation 40.3 fL (36.4-46.3); White Blood Count 3.74 K/ul (4.8-10.8)
[2024-07-28] MEDS: SODIUM CHLORIDE 0.9% 1,000 ML IV SCH (14:12)
[2024-07-28] MEDS: ONDANSETRON INJ 2 MG/ML 2 ML VIAL IV STA (14:13)
[2024-07-28 14:23] LABS: Albumin Globulin Ratio 1.3 (0.9-2); Albumin Level 4.1 gm/dl (3.4-5.0); BUN Creatinine Ratio 11.5 (10-20); Bilirubin,Total 0.5 mg/dl (0.2-1.0); Calcium 9.1 mg/dl (8.6-10.3); Creatinine Clr Calc Pharmacy 72.8 ml/min; Globulin 3.2 gm/dl (2.5-4.0); Total Protein 7.3 gm/dl (6.0-8.3)
[2024-07-28 14:38] LABS: Appearance Urine Cloudy (Clear); Bacteria Urine Automated None Seen (None Seen); Bilirubin Urine Negative (Negative); Blood Urine Negative (Negative); Cast Urine Automated >20 /lpf (0-2); Color Urine Yellow; Epithelial Cell Urine Auto >20 /hpf (0-2); Glucose Urine UA Negative (Negative); Hyaline Casts Urine Present /lpf (None Presnt); Ketones Urine Trace (Negative); Leukocyte Esterase Urine 1+ (Negative); Nitrite Urine Negative (Negative); Protein Urine 1+ (Negative); RBC Urine Automated 0-2 /hpf (0-2); Specific Gravity Urine 1.023 (1.000-1.030); Urobilinogen Urine Negative (Negative); WBC Urine Automated 0-5 /hpf (0-5); pH Urine 6.5 (4.5-7.5)
--- NOTE | 2024-07-28 14:55 | Emergency Department Note ---
ED Visit Note I was consulted by the Advanced Practice Provider.I performed a substantive portion of the visit. This includes the aspects of: -History/Physical -MDM .
--- NOTE | 2024-07-28 15:09 | XRay Report ---
XR chest 1V portable CLINICAL HISTORY: FEVER, MALAISE TECHNIQUE: Single frontal radiograph of the chest was obtained. Comparison: Comparison is made to rib series 05/05/2024 FINDINGS: Right humeral hardware is seen. Calcified aortic knob is seen. The lungs are clear. No evidence of pl eural effusion or pneumothorax. IMPRESSION: No acute chest disease. ACT 112: Negative or not required by law. Electronically signed by: Ruslan Menon M.D. 07/28/2024 2:31 PM
[2024-07-28] MEDS: OPTIRAY 320 100ml IV ONE (15:35)
[2024-07-28 15:40] LABS: Adenovirus PCR Not Detected (NotDetected); Bordetella parapertussis PCR Not Detected (NotDetected); Bordetella pertussis PCR Not Detected (NotDetected); Chlamydia pneumoniae PCR Not Detected (NotDetected); Coronavirus 229E PCR Not Detected (NotDetected); Coronavirus CoV-2 (COVID19)PCR Not Detected (NotDetected); Coronavirus HKU1 PCR Not Detected (NotDetected); Coronavirus NL63 PCR Not Detected (NotDetected); Coronavirus OC43PCR Not Detected (NotDetected); Human Metapneumovirus PCR Not Detected (NotDetected); Influenza A PCR Not Detected (NotDetected); Influenza B PCR Not Detected (NotDetected); Mycoplasma pneumoniae PCR Not Detected (NotDetected); Parainfluenza Virus 1 PCR Not Detected (NotDetected); Parainfluenza Virus 2 PCR Not Detected (NotDetected); Parainfluenza Virus 3 PCR Not Detected (NotDetected); Parainfluenza Virus 4 PCR Not Detected (NotDetected); Respiratory Syncytial VirusPCR Not Detected (NotDetected); Rhinovirus/Enterovirus PCR Not Detected (NotDetected)
[2024-07-28] MEDS: ACETAMINOPHEN 500 MG TAB PO STA (15:58)
--- NOTE | 2024-07-28 16:05 | CT Scan Report ---
ABDOMEN AND PELVIS CT WITH IV CONTRAST CT DOSE: 1140.69 mGy.cm HISTORY: Acute left lower quadrant abdominal pain with fever LLQ ABD PAIN, CONSTIPATION, FEVER TECHNIQUE: Multiaxial CT images of the abdomen and pelvis were performed following the IV administrat ion of 90 cc of Optiray, A dose lowering technique was utilized adhering to the principles of ALARA. COMPARISON STUDY: CT abdomen and pelvis 01/20/2024, hip radiographs 05/08/2024 FINDINGS: Clear lung bases. No pneumatosis or pneumoperitoneum. Unremarkable spleen, pancreas, gallbl adder, liver and adrenal glands. Patency of the hepatic and portal veins. 4 mm nonobstructing calculu s at the interpolar left kidney. Punctate nonobstructing calculus of the inferior pole right kidney. Subcentimeter hypodensities of the kidneys are too small to characterize, likely benign. Unremarkable urinary bladder, uterus and adnexa. Atherosclerosis of the aorta. No lymphadenopathy. No bowel obstruction or bowel wall thickening. There is moderate colonic fecal retention. Noninflamed appendix. Degenerative and postoperative changes of the spine. Left hip arthroplasty demonstrates sa tisfactory alignment. Anterior to the femoral neck and proximal diaphysis there is an intramuscular c ollection involving the proximal thigh demonstrating peripheral enhancement measuring 3.9 x 3.3 x 10 cm on 329 series 3 with moderate adjacent inflammatory stranding. No associated hip joint effusion. P osterior interbody mirela and screw fusion with discectomy at L5-S1. Chronic appearing mild wedge deform ities at T11 and L3. IMPRESSION: 1. Left hip arthroplasty with adjacent intramuscular left proximal thigh peripherally enhancing 10 cm fluid collection. Sterility cannot be determined by imaging alone however in the clinical setting of a reported acute fever, abscess is a differential consideration. 2. No bowel obstruction or bowel wall thickening. Normal appendix. 3. Nonobstructing bilateral nephrolithiasis. ACT 112: Negative or not required by law. The above report was generated using voice recognition software. It may contain grammatical, syntax o r spelling errors. Electronically signed by: Lukas Garcia M.D. 07/28/2024 3:53 PM
[2024-07-28 17:04] LABS: Troponin I High Sensitivity 4.9 pg/ml (0-14)
--- NOTE | 2024-07-28 17:15 | History & Physical Report ---
Date of Service July 28, 2024 Assessment & Plan (1) Hypoxia: Plan: Nargis is a 59-year-old female with PMH of anticardiolipin syndrome, SLE, Sjogren's, COPD, HLD, Raynaud's disease, anxiety, and ADHD. She presented on 07/28 for fever, VALENZUELA, epigastric pain, left hip pain, and hypoxia at home pulse ox x 1 week. She expresses a concern for mycoplasma pneumonia on arrival, as she had similar symptoms when she had it twice in the past. 85% SpO2 on RA BioFire negative CXR without acute findings DDx does include pulmonary embolism on admission, however given patient received dye load for A/P CT in the ED, will defer chest CTA at this time Doppler of the lower extremities ordered, pending Note: Upon re-assessment at bedside, patient's SpO2 is 100% on RA; she reports that she can keep her SpO2 up "so long as she is talking" Non-tachycardic on arrival While PE remains in the differential due to her anticardiolipin syndrome, lower suspicion that this is a severe PE at this time (2) SLE (systemic lupus erythematosus): Plan: Patient is on chronic steroid use for her lupus, but is currently tapering down Previously on methotrexate but discontinued Double-stranded DNA ordered, pending CRP and ESR ordered, pending Continue prednisone 1mg daily (3) Status post left hip replacement: Plan: Patient is s/p left hip total arthroplasty due to avascular necrosis on 05/08/2024 On A/P CT there was a notable 10 cm fluid collection adjacent to the left hip arthroplasty The ED did reach out to orthopedics on admission; no plan on draining at this time Orthopedics did feel it was consistent with postoperative state and not indicative of acute infection (4) Fever: Plan: Patient reports she has had intermittent fevers for the past week including a 103 F fever on the evening of 07/27 ? URI/maxillary sinus infection ? May be secondary to poorly controlled autoimmune condition in the setting of a PE While recent left hip site does not look infected on exam, remains within the differential, will continue to monitor (5) Anticardiolipin antibody syndrome: Plan: Reason for aspirin daily Plan Disposition: Obs - Admit to [facility] telemetry Full code Regular diet VTE PPx: TBD pending Doppler studies; SCDs for now; will likely do empiric heparin IV History of Present Illness Chief Complaint: Flulike symptoms Primary Care Provider: Jairo Escobar MD Nargis is a 59-year-old female with PMH of anticardiolipin syndrome, SLE, Sjogren's, COPD, HLD, Raynaud's disease, anxiety, and ADHD. She presented on 07/28 for fever, VALENZUELA, epigastric pain, left inguinal pain, and hypoxia at home pulse ox x 1 week. She expresses a concern for mycoplasma pneumonia on arrival, as she had similar symptoms when she had it twice in the past. Patient reports that she would check her home pulse ox after doing tasks around her house, such as putting laundry in the dryer. Her home pulse ox would then dip to around 80% on RA. She is not on supple oxygen at baseline. No CPAP at night. Last night, she also had a temperature of 103 F. She took some Tylenol and felt better. She has been using her rescue inhaler at home for her VALENZUELA. No SOB at rest. Additionally, she notes that when she is sitting and talking normally, her SpO2 does not drop below 97%. Patient denies history of DVT/PE. She does have history of a hip replacement with Dr. Aguirre in April 2024. Since then, she has been doing well, but will occasionally have muscle pain in her left hip. Patient took all of her regular morning medicines today; she is on chronic prednisone (currently down to 1 mg) for her lupus. The only recent change medication was that she was started on Abilify, and took it for 3 days, but stopped after her symptoms developed this week. She attributes her recent nausea to the Abilify. Of note, patient also reports that she feels like someone "punched her" in the epigastric region whenever she bends over. This, coupled with the nausea, has led her to eat less over the past week. Patient does have a history of anticardiolipin syndrome and takes aspirin daily. She believes she was temporarily on a blood thinner in the past (? Warfarin), but is not sure. She has no history of bleeding disorders, GI bleeds, brain bleeds, or stroke. Additionally, she has a new onset headache that she rates 7/10 at present; it is bilateral behind her eyes and wraps around to the posterior scalp. Normally she does not have headaches. Patient denies smoking, tobacco use, recent alcohol use. Patient is hypoxic at 85% SpO2 on RA. ED course: NSS 1000 mL IV Zofran 4 mg IV Acetaminophen 1000 mg p.o. ROS: Patient endorses fever 103, hot flashes last night, night-sweats, dizziness and headache when laying down, maxillary pressure, new VALENZUELA (only other time this happened was when she had mycoplasma PNA), left pelvic/hip pain, nausea, constipation, and chronic neuropathy in the feet. Patient denies chills, lightheadedness, chest pain, pleuritic CP, SOB at rest, coughing, hemoptysis, vomiting, and diarrhea. Allergies Allergy/AdvReac Type Severity Reaction Status Date / Time Penicillins AdvReac Severe Syncope as Verified 05/08/24 07:25 a child vancomycin AdvReac Severe Red Man Verified 05/08/24 07:25 Syndrome belimumab AdvReac Intermediate Nausea/Vomi Verified 05/08/24 07:25 ting cefazolin AdvReac Intermediate Itching Verified 05/08/24 07:25 sorbitan esters AdvReac Intermediate Nausea/Vomi Verified 05/08/24 07:25 ting Home Medications Medication Instructions Recorded Confirmed Type aspirin 81 mg tablet,delayed 81 mg PO QAM 07/27/18 07/28/24 History release cholecalciferol (vitamin D3) 125 5,000 unit PO QAM 07/27/18 07/28/24 History mcg (5,000 unit) tablet (Vitamin D3) folic acid 1 mg tablet 1 mg PO QAM 07/27/18 07/28/24 History polyethylene glycol 3350 17 17 g PO HS 07/27/18 07/28/24 History gram/dose oral powder (Miralax) gabapentin 300 mg capsule 900 mg PO TID 03/31/23 07/28/24 History (Neurontin) lactobacillus combination no.9 4 4,000 mmu cells PO QPM 03/31/23 07/28/24 History billion cell capsule (Adult 50 Plus Probiotic) amitriptyline 10 mg tablet 20 mg (2 x 10 mg) PO HS #180 tabs 09/20/23 07/28/24 Rx albuterol sulfate 90 mcg/actuation 2 puff inhalation QID PRN 10/18/23 07/28/24 Rx aerosol inhaler (Ventolin HFA) shortness of breath or wheezing #6.7 grams prednisone 1 mg tablet 1 mg PO QAM 02/16/24 07/28/24 History fluoxetine 20 mg tablet 40 mg PO QAM 02/18/24 07/28/24 History clotrimazole 1 % topical cream 1 applic topical BID PRN Rash/Lupus 03/21/24 07/28/24 History clotrimazole 10 mg fawad 10 mg mucous membrane TID PRN 03/21/24 07/28/24 History Thrush triamcinolone acetonide 0.1 % 1 applic topical BID PRN Rash 03/21/24 07/28/24 History topical cream potassium chloride 20 mEq 20 meq PO DAILY #30 tabs 04/25/24 07/28/24 Rx tablet,extended release oxycodone 5 mg tablet 5 mg PO Q6H PRN pain #30 tabs 05/08/24 07/28/24 Rx zolpidem 10 mg tablet 10 mg PO HS PRN Insomnia #30 tabs 06/05/24 07/28/24 Rx omeprazole 20 mg tablet,delayed 20 mg PO HS gastric upset #90 tabs 06/14/24 07/28/24 Rx release triamcinolone acetonide 0.1 % 1 applic topical BID #60 mL 06/14/24 07/28/24 Rx lotion lorazepam 0.5 mg tablet (Ativan) 0.5 mg PO BID PRN Anxiety #60 tabs 06/30/24 07/28/24 Rx nystatin 100,000 unit/mL oral 5 ml PO QID PRN [place] 07/28/24 07/28/24 History suspension Past Med/Surg History Problem List (Updated 07/28/24 @ 19:27 by Alexandr Bloom PA-C) Anticardiolipin antibody syndrome Reason for baby ASA per patient Fever Hypoxia Left lower quadrant abdominal pain (Acute) Hypoxemia (Acute) Shortness of breath (Acute) Depression Status post left hip replacement (~04/2024) Raynaud's disease Monoclonal gammopathy of undetermined significance Avascular necrosis of bone of left hip Chronic venous insufficiency Insomnia Greater trochanteric bursitis of right hip Hypertension (Chronic) SLE (systemic lupus erythematosus) Hypothyroid Sjogrens syndrome Sciatica Hyperlipidemia COPD (chronic obstructive pulmonary disease) Interstitial cystitis Cervical radiculopathy ADHD Anxiety Medical History Paroxysmal supraventricular tachycardia s/p ablation Carotid arterial disease [facility] [place] from [place] note, "She had a carotid ultrasound many years ago and it did not show any serious disease" Hx MRSA infection 2020 - while visiting hospital, was acquired > completed tx, no issues since IBS (irritable bowel syndrome) Anticardiolipin antibody syndrome Reason for baby ASA per patient Hx of migraines Arachnoiditis d/t failed lumbar fusion ADHD Thoracic ascending aortic aneurysm [facility] [place] Vascular surgery monitoring Chest CT 12/2023: There is mild aneurysmal dilatation of the ascending thoracic aorta which measures up to 4.2 cm in diameter. SLE (systemic lupus erythematosus) Dr Reid [facility] COPD (chronic obstructive pulmonary disease) Anxiety Chronic steroid use Chronic prednisone for lupus (currently 1mg daily) Osteoarthritis Fibromyalgia Chronic back pain Kidney stones Chronic constipation Celiac disease GERD (gastroesophageal reflux disease) Anemia Hypertension Hyperlipidemia Supraventricular tachycardia Surgical History History of surgery on arm Right arm mass excision (10/23/2021[place] [facility] [place]open reduction internal [place]) fracture Right Humerus 2018 d/t fall on ice History of section History of removal of cyst ? Eyelid History of laparoscopy "Checking for endometriosis" History of dilatation and curettage History of hand surgery right hand Status post wrist surgery right wrist pin in place History of laminectomy x2 History of lumbar spinal fusion History of colonoscopy History of esophagogastroduodenoscopy (EGD) History of tooth extraction all teeth History of tonsillectomy and adenoidectomy History of neck surgery left lymph node removal d/t englargement (benign) History of endoscopic sinus surgery History of cardiac radiofrequency ablation for SVT (2009) Family History Mother Family hx colonic polyps Father Myocardial infarction Grandmother (Maternal) No problems noted. Grandmother (Paternal) Myocardial infarction Other No family history of adverse response to anesthesia Denies family history of Ovarian cancer Prostate cancer Breast cancer Colorectal cancer Social History Smoking Status: Former smoker Tobacco Type: Cigarettes Age Started Using Tobacco: 12; Age Quit Using Tobacco: 50; packs per day: 1; Second Hand Exposure: No; Do You Dip or Chew Tobacco: No; Hx Alcohol Use: No Hx Substance Use: No Preferred Language: [place] Communication Ability: Effective Music Journalist Required: No Beliefs That Will Affect Care: None marital status: Current Living Situation: Family Current Living Situation Comment: lives in house with ex current occupational status: employed and unemployed Feels Safe at Home: Yes Childhood Exposure to Second-Hand Smoke: Yes Diet: regular Dental Care, Regularly: No Physical Activity Frequency: 3-4 Times per Week Physical Activity Frequency Comment: crunches, stretching, weights Seatbelt Use: always Sunscreen Use: Yes Assistive Devices: Denture - Upper, Denture - Lower and Glasses Review of Systems Review of Systems: See HPI above Physical Exam Physical Exam: General: no acute distress; pleasant affect; non-toxic appearing; well- nourished; cooperative; SpO2 100% on RA while talking HEENT: normocephalic, atraumatic; no scleral icterus; PERRLA; vision and hearing grossly intact Neck: supple; no lymphadenopathy; trachea midline Skin: warm, dry without signs of tenting; no cyanosis; no rashes, bruising, lesions, or erythema noted CV: chest wall NTP; RRR; S1/S2 normal; no murmurs/rubs/gallops; pulses intact and symmetric at radial, DP, and PT Lungs: no acute respiratory distress; symmetrical chest wall expansion; clear breath sounds across all lung brunson w/o adventitious sounds; no wheezing ABD: Soft, epigastric region is tender to palpation; all 4 other quadrants are NTP; BS present; no rebound/guarding; no distention Left hip: Surgical site examined does not show signs of erythema or drainage; ? Slight swelling around the site, could be seroma MSK: no tics or fasciculations; no edema noted in the LEs b/l, nonerythematous Neuro: A&Ox3; normal mood and affect; fluent speech; no focal deficits; diminished sensation in the left lateral extremity when compared to the right Results & Data Results & Data Vital Signs (Past 12 Hours) Vital Signs Temp Pulse Pulse Resp BP BP Pulse Ox 07/28/24 17:08 67 07/28/24 16:37 36.7 C 07/28/24 16:28 85 L 07/28/24 15:08 63 16 152/93 H 94 07/28/24 13:31 63 16 181/89 H 98 07/28/24 13:21 36.4 C L 75 18 152/57 H 96 O2 Del Method 07/28/24 17:08 07/28/24 16:37 07/28/24 16:28 Room Air 07/28/24 15:08 Room Air 07/28/24 13:31 Room Air 07/28/24 13:21 Room Air Laboratory Results Abnormal lab results 07/28/24 07/28/24 Range/Units 13:33 13:41 WBC 3.74 L (4.8-10.8) K/ul RBC 3.90 L (4.20-5.40) M/uL Hgb 11.1 L (12.0-16.0) g/dl Hct 33.6 L (37.0-47.0) % Lymph # (Auto) 1.15 L (1.20-3.40) K/uL Sodium 131 L (136-145) mmol/L Urine Appearance Cloudy A (Clear) Urine Protein 1+ H (Negative) Urine Ketones Trace H (Negative) Ur Leukocyte Esterase 1+ H (Negative) U Hyaline Cast (Auto) >20 H (0-2) /lpf U Epithel Cells (Auto) >20 H (0-2) /hpf Hyaline Casts Present A (None Presnt) /lpf Diagnostic Findings Chest X-Ray 07/28/24 13:47 XR chest 1V portable CLINICAL HISTORY: FEVER, MALAISE TECHNIQUE: Single frontal radiograph of the chest was obtained. Comparison: Comparison is made to rib series 05/05/2024 FINDINGS: Right humeral hardware is seen. Calcified aortic knob is seen. The lungs are clear. No evidence of pleural effusion or pneumothorax. IMPRESSION: No acute chest disease. ACT 112: Negative or not required by law. Electronically signed by: Ruslan Menon M.D. 07/28/2024 2:31 PM Abdomen/Pelvis CT 07/28/24 13:[address] WITH IV CONTRAST CT DOSE: 1140.69 mGy.cm HISTORY: Acute left lower quadrant abdominal pain with fever LLQ ABD PAIN, CONSTIPATION, FEVER TECHNIQUE: Multiaxial CT images of the abdomen and pelvis were performed following the IV administration of 90 cc of Optiray, A dose lowering technique was utilized adhering to the principles of ALARA. COMPARISON STUDY: CT abdomen and pelvis 01/20/2024, hip radiographs 05/08/2024 FINDINGS: Clear lung bases. No pneumatosis or pneumoperitoneum. Unremarkable spleen, pancreas, gallbladder, liver and adrenal glands. Patency of the hepatic and portal veins. 4 mm nonobstructing calculus at the interpolar left kidney. Punctate nonobstructing calculus of the inferior pole right kidney. Subcentimeter hypodensities of the kidneys are too small to characterize, likely benign. Unremarkable urinary bladder, uterus and adnexa. Atherosclerosis of the aorta. No lymphadenopathy. No bowel obstruction or bowel wall thickening. There is moderate colonic fecal retention. Noninflamed appendix. Degenerative and postoperative changes of the spine. Left hip arthroplasty demonstrates satisfactory alignment. Anterior to the femoral neck and proximal diaphysis there is an intramuscular collection involving the proximal thigh demonstrating peripheral enhancement measuring 3.9 x 3.3 x 10 cm on 329 series 3 with moderate adjacent inflammatory stranding. No associated hip joint effusion. Posterior interbody mirela and screw fusion with discectomy at L5-S1. Chronic appearing mild wedge deformities at T11 and L3. IMPRESSION: 1. Left hip arthroplasty with adjacent intramuscular left proximal thigh peripherally enhancing 10 cm fluid collection. Sterility cannot be determined by imaging alone however in the clinical setting of a reported acute fever, abscess is a differential consideration. 2. No bowel obstruction or bowel wall thickening. Normal appendix. 3. Nonobstructing bilateral nephrolithiasis. ACT 112: Negative or not required by law. The above report was generated using voice recognition software. It may contain grammatical, syntax or spelling errors. Electronically signed by: Lukas Garcia M.D. 07/28/2024 3:53 PM ECG Additional Comments: ECG revealed NSR at 66 bpm; QTc 465 Code Status & VTE Plan Code Status Full code VTE Prophylaxis Plan VTE Prophylaxis will be ordered: Yes Supervising Physician Co-Signing Physician Notes Patient seen and examined, chart reviewed, case discussed with Alexandr Bloom PA-C and I agree with the assessment and plan as above except as otherwise noted Labs and images reviewed 59-year-old female with past medical history of SLE, and left hip replacement who presents with hypoxia, inguinal pain and fatigue. Reports she has had similar symptoms in the past with mycoplasma and is concerned for this. She notes that when ambulating at home her pulse ox would dip to the 80s. Did have a fever of 103 at home, is afebrile in the ER. Patient has a fluid collection at site of her hip replacement, this was reviewed by surgery and was not felt to be infectious. She does not show evidence of a pneumonia on her chest x-ray. CT as chest was not obtained to PE as a source of her hypoxia dyspnea is still within the differential, and patient has a received contrast load. She is at increased risk for VTE given her history of anticardiolipin syndrome/lupus longer on warfarin. Her hip surgery was April 2024. She has had some leg swelling, Dopplers are pending. Discussed patient at bedside while she was in ultrasound. She reports the last time she had shortness of breath like this she had mycoplasma, her bio fire is negative including for mycoplasma pneumonia and she does not show evidence of atypical or typical pneumonia on her x-ray. She confirms that she has used a pulse ox and has dipped down to the 80s and has been tachycardic at home although this improves at rest. Did discuss the risk/benefits of empiric anticoagulation for her high VTE/PE risk versus waiting to the morning for a CTA. Regardless of her lower extremity Dopplers patient reports she strongly prefers to err on the side of caution with empiric anticoagulation and does not think she had any problems tolerating warfarin previously anyway, and has not had any recent bleeding complications. Given this we will start empirically on the low-dose heparin normal gram overnight. If PE is seen on CTA in the morning then recommend increasing to full dose at that time and would transition to Lovenox bridge to warfarin given her history of anticardiolipin syndrome. If negative then can discontinue at that time and pursue alternative etiologies. Has had some abdominal bloating but there is no intra-abdominal pathology noted on CT. Continue to monitor left hip. While this is not felt to be hvac sales representative of infection/abscess on review by orthopedics she has had some left hip pain and does not yet have an etiology for her fever so would maintain a index of suspicion for the hip as source if she does not improve. CRP has been added and trended. dsDNA titer has been sent out as she is now only on 1 mg of prednisone for her underlying lupus. Otherwise agree with assessment and management as above. PG Care Time/CCT Total # of Minutes Spent Total Time Spent with Patient: Total time spent is greater than 50% in coordination of care (as documented) at patient's floor/unit and/or counseling patient: [place] [address] INT INP/OBS CARE 3/75MIN Patient Type Established History Comprehensive Exam Comprehensive Medical Decision Making High Complexity Diagnoses Hypoxia R09.02 SLE (systemic lupus erythematosus) M32.9 Status post left hip replacement Z96.642 Fever R50.9 Anticardiolipin antibody syndrome D68.61
[2024-07-28] MEDS: KETOROLAC TROMETHAMINE 15 MG/ML VIAL IV STA (17:26)
[2024-07-28 17:30] LABS: C Reactive Protein 0.56 mg/dl (0-0.5)
[2024-07-28 21:35] LABS: Basophils # (auto) 0.01 K/uL (0.00-0.20); Basophils % (auto) 0.2 %; Eosinophils # (auto) 0.12 K/uL (0.00-0.50); Hematocrit (blood only) 33.4 % (37.0-47.0); Immature Granulocytes # (auto) 0.01 K/uL (0.01-0.20); Immature Granulocytes % (auto) 0.2 %; Lymphocytes # (auto) 0.99 K/uL (1.20-3.40); Lymphocytes % (auto) 24.5 %; Mean Corpuscular Hgb Conc 32.9 g/dL (32.0-36.0); Mean Corpuscular Volume 88.1 fL (80.0-100.0); Mean Platelet Volume 9.8 fL (9.4-12.4); Monocytes # (auto) 0.53 K/uL (0.11-0.59); Monocytes % (auto) 13.1 %; Neutrophils # (auto) 2.38 K/uL (1.40-6.50); Platelet Count 230 K/uL (130-400); RDW Coefficient of Variation 12.9 % (11.5-14.5); RDW Standard Deviation 41.3 fL (36.4-46.3); Red Blood Count 3.79 M/uL (4.20-5.40); White Blood Count 4.04 K/ul (4.8-10.8)
[2024-07-28] MEDS: HEPARIN SOD (PORCINE) 1000 UNIT/ML IV ONE (21:40)
[2024-07-28] MEDS: HEPARIN SODIUM/DEXTROSE 25,000 UNITS/500 ML BAG IV SCH (21:40)
[2024-07-28] MEDS: Heparin IV Adult Wt-Based Low-Dose w/ INITIAL Bolus Protocol IV SCH (21:42)
[2024-07-28] MEDS: AMITRIPTYLINE HCL 10 MG TAB PO SCH (21:42)
[2024-07-28] MEDS: GABAPENTIN 300 MG CAP PO SCH (21:43)
[2024-07-28] MEDS: PANTOprazole 40 MG TAB PO SCH (21:43)
[2024-07-28] MEDS: ZOLPIDEM TARTRATE 5 MG TAB PO PRN (21:43)
[2024-07-28] MEDS: oxyCODONE HCL IR 5 MG TAB (IMMEDIATE RELEASE) PO PRN (21:44)
[2024-07-28 22:02] LABS: Partial Thromboplastin Time 26 Seconds (21-31); Prothrombin Time 10.5 Seconds (9.0-12.0)
[2024-07-28] MEDS: POLYETHYLENE (MIRALAX) 17 GM PACK PO SCH (22:03)
--- NOTE | 2024-07-28 22:45 | Ultrasound Report ---
Exam(s): US VENOUS BILATERAL LOWER EXTREMITIES EXAM: US Duplex Bilateral Lower Extremities Veins CLINICAL HISTORY: Reason for exam: EVAL DVT. TECHNIQUE: Real-time duplex ultrasound scan of the bilateral lower extremity veins integrating B-mode two-dimensional vascular structure, Doppler spectral analysis, color flow Doppler imaging and compression. COMPARISON: No relevant prior studies available. FINDINGS: Right deep veins: Unremarkable. No DVT in the right common femoral, femoral, proximal deep femoral or popliteal veins. The veins demonstrate normal color flow, are normally compressible, with normal phasic flow and/or augmentation response. Right superficial veins: Unremarkable. No thrombus in the visualized right great saphenous vein. Left deep veins: Unremarkable. No DVT in the left common femoral, femoral, proximal deep femoral or popliteal veins. The veins demonstrate normal color flow, are normally compressible, with normal phasic flow and/or augmentation response. Left superficial veins: Unremarkable. No thrombus in the visualized left great saphenous vein. Soft tissues: No acute findings. IMPRESSION: No evidence of acute DVT. Electronically signed by: Chelsy Prince M.D. 07/28/24 22:43 PM
[2024-07-29 04:47] LABS: Basophils # (auto) 0.01 K/uL (0.00-0.20); Basophils % (auto) 0.3 %; Eosinophils # (auto) 0.18 K/uL (0.00-0.50); Eosinophils % (auto) 5.2 %; Hematocrit (blood only) 31.2 % (37.0-47.0); Hemoglobin 10.1 g/dl (12.0-16.0); Immature Granulocytes # (auto) 0.01 K/uL (0.01-0.20); Immature Granulocytes % (auto) 0.3 %; Lymphocytes # (auto) 1.39 K/uL (1.20-3.40); Lymphocytes % (auto) 40.3 %; Mean Corpuscular Hemoglobin 28.5 pg (25.0-34.0); Mean Corpuscular Hgb Conc 32.4 g/dL (32.0-36.0); Mean Corpuscular Volume 87.9 fL (80.0-100.0); Mean Platelet Volume 9.9 fL (9.4-12.4); Monocytes # (auto) 0.48 K/uL (0.11-0.59); Monocytes % (auto) 13.9 %; Neutrophils # (auto) 1.38 K/uL (1.40-6.50); Platelet Count 207 K/uL (130-400); RDW Standard Deviation 41.8 fL (36.4-46.3); Red Blood Count 3.55 M/uL (4.20-5.40); White Blood Count 3.45 K/ul (4.8-10.8)
[2024-07-29 04:59] LABS: BUN Creatinine Ratio 10.5 (10-20); C Reactive Protein 0.88 mg/dl (0-0.5); Calcium 8.8 mg/dl (8.6-10.3); Creatinine Clr Calc Pharmacy 83.3 ml/min; Potassium 3.9 mmol/L (3.5-5.1)
[2024-07-29 05:09] LABS: ANTI-Xa, UFH(UnfractionatedHep 0.56 IU/ml (0.3-0.7)
--- NOTE | 2024-07-29 07:34 | Electrocardiogram Report ---
Test Reason : Blood Pressure : */* mmHG Vent. Rate : 66 BPM Atrial Rate : 66 BPM P-R Int : 172 ms QRS Dur : 90 ms QT Int : 444 ms P-R-T Axes : 56 -12 -3 degrees QTcB Int : 465 ms Normal sinus rhythm Nonspecific ST abnormality Abnormal ECG When compared with ECG of 03-Apr-2024 13:53, T wave inversion now evident in Inferior leads Confirmed by Jairo Vizcaino ([id number]) on 07/29/2024 7:33:50 AM Referred By: REFERRED SELF Confirmed By: Jairo Vizcaino
[2024-07-29] MEDS: ACETAMINOPHEN 325 MG TAB PO PRN (08:22)
[2024-07-29] MEDS: predniSONE 1 MG TAB PO SCH (08:23)
[2024-07-29] MEDS: ASPIRIN 81 MG ECTAB PO SCH (08:23)
[2024-07-29] MEDS: FLUoxetine HCL 20 MG CAP PO SCH (08:23)
[2024-07-29] MEDS: FOLIC ACID 1 MG TAB PO SCH (08:24)
[2024-07-29 09:29] LABS: ANTI-Xa, UFH(UnfractionatedHep 0.47 IU/ml (0.3-0.7)
--- NOTE | 2024-07-29 11:19 | Hospitalist Progress Note ---
Date of Service July 29, 2024 Assessment & Plan (1) Hypoxia: Plan: Nargis is a 59-year-old female with PMH of anticardiolipin syndrome, SLE, Sjogren's, COPD, HLD, Raynaud's disease, anxiety, and ADHD. She presented on 07/28 for fever, VALENZUELA, epigastric pain, left hip pain, and hypoxia at home pulse ox x 1 week. She expresses a concern for mycoplasma pneumonia on arrival, as she had similar symptoms when she had it twice in the past. 85% SpO2 on RA BioFire negative CXR without acute findings Doppler of the lower extremities ordered: negative (2) SLE (systemic lupus erythematosus): Plan: Patient is on chronic steroid use for her lupus, but is currently tapering down Previously on methotrexate but discontinued Double-stranded DNA ordered, pending CRP and ESR ordered, pending Continue prednisone 1mg daily (3) Status post left hip replacement: Plan: Patient is s/p left hip total arthroplasty due to avascular necrosis on 05/08/2024 On A/P CT there was a notable 10 cm fluid collection adjacent to the left hip arthroplasty The ED did reach out to orthopedics on admission; no plan on draining at this time Orthopedics did feel it was consistent with postoperative state and not indicative of acute infection (4) Fever: Plan: Patient reports she has had intermittent fevers for the past week including a 103 F fever on the evening of 07/27 Likely URI/maxillary sinus infection May be secondary to poorly controlled autoimmune condition in the setting of a PE While recent left hip site does not look infected on exam, remains within the differential, will continue to monitor (5) Anticardiolipin antibody syndrome: Plan: Reason for aspirin daily (6) Constipation: Plan: Likely due to chronic opioid use CT AP: consistent with very large stool burden, likely exacerbating abdominal symptoms Miralax 51mg BID ordered for likely overflow incontinence Continue Miralax until two soft normal sized stools are produced in a row Plan Disposition: Obs - Admit to [facility] telemetry Full code Regular diet VTE PPx: TBD pending Doppler studies; SCDs for now; will likely do empiric heparin IV Admission and Anticipated Discharge Date Admission Date: July 28, 2024 Supervising Physician Co-Signing Physician Notes I personally examined the patient and verified all hatch points of history and exam, discussed case, and agree with decision making with Dr Shahram Leon congestion causing headache. Feels like she felt whenever she had mycoplasma before. Abdominal pain. Notes struggling with constipation recent lyshe even escalated what she does for her bowels at home without meaningful results. Hip pain and mobility have been improving since her THAshe notes that her exercise tolerance/etc. has been increasing. Bilateral ring finger fingernails have become thin and corrugated, losing some hair, itchy dry skin. With this rash has been out some. Vitals noted, in general she is awake and alert pleasant no distress. HEENT normocephalic atraumatic mucous membranes moist. Skin dry with also scattered maculopapular lesions. Lungs quiet but clear, no rales rhonchi or wheezes. Extremities without sinus clubbing or edema. Hypoxiaviral versus atypical pneumoniadiscussed further workup versus empiric azithromycinwe all agreed to go with empiric treatment for now. Follow. With negative venous Dopplers in her situation seeming much more infection drivenparticularly given her congestion and feeling like she has felt before when if she has had infectionslow concern for PEhold off on chest CT, stop heparin drip. Abdominal painrather significant constipation. We discussed management optionsshe would rather just clear things out and then moved to maintenance planbowel prep ordered. Skin rash/nail findings/hair lossseems like it probably relates to her autoimmune disease, but the connection is not entirely clear. We utilize steroid creams and moisturizers to at least make the rash less itchy for now. Fluid collection around hipalmost certainly reactive/postsurgical given that she is not having increasing pain or limiting symptoms, and rather has been progressing. DVT prophylaxiswas fully anticoagulated on heparintomorrow depending on her progress, low threshold to initiate pharmacologic prophylaxis Yang Nargis Davenport was seen resting comfortably at bedside. Patient endorses that many of her symptoms have been improving and that she was able to eat breakfast without nausea this morning. She reports that when pressing on her epigastric region or left inguinal region she feels some pain, but this is improved from yesterday. The patient does not have acute complaints or concerns at this time. Physical Exam Physical Exam: General: patient resting comfortably, NAD, non-toxic in appearance, answers questions appropriately. Skin: warm, dry, intact HEENT: NC/AT, anicteric sclera, conjunctiva without injection, moist mucus membr anes. Heart: +S1/S2, regular, no m/r/g Lungs: equal air entry bilaterally, no rales/rhonchi/wheezes Abd: +BS, soft, NT/ND Ext: warm, no clubbing/cyanosis or edema Neuro: nonfocal, speech intact, no facial droop, moving all extremities. Results & Data Results & Data Vital Signs (Past 12 Hours) Vital Signs Temp Pulse Pulse Resp BP BP Pulse Ox 07/29/24 11:05 36.6 C 55 L 18 154/92 H 98 07/29/24 10:07 07/29/24 07:22 36.6 C 60 18 148/91 H 97 07/29/24 07:11 60 07/29/24 02:50 36.7 C 64 18 137/84 97 07/29/24 01:47 63 O2 Del Method O2 Flow Rate 07/29/24 11:05 Nasal Cannula 2 07/29/24 10:07 Nasal Cannula 1 07/29/24 07:22 Nasal Cannula 2 07/29/24 07:11 07/29/24 02:50 Nasal Cannula 2 07/29/24 01:47 Resident Activity Tracking Resident Involvement: Resident Care Provided Care Provided: Adult Hospital Medicine (6) Constipation Constipation type: unspecified constipation type Qualified Code(s): K59.00 - Constipation, unspecified
[2024-07-29] MEDS: FLUTICASONE PROPIONATE NA SPR 16 GM BTL SCH (12:15)
[2024-07-29] MEDS: CETIRIZINE HCL 10 MG TABLET PO ONE (12:15)
[2024-07-29] MEDS: guaiFENesin 600 MG TABCR PO STA (12:15)
[2024-07-29] MEDS: oxyCODONE HCL IR 5 MG TAB (IMMEDIATE RELEASE) PO PRN (15:30)
[2024-07-29] MEDS: AZITHROMYCIN 250 MG TAB PO ONE (15:38)
[2024-07-29] MEDS ORDERED: EUCERIN CR 120 GM JAR EXT PRN (17:04)
--- NOTE | 2024-07-29 17:07 | Billing Data ---
Date of Service July 29, 2024 Coding Level of Care Code 30585 SUB INP/OBS CARE MIN
[2024-07-29] MEDS: LAVAGE SOLUTION 4000ML PO SCH (18:01)
[2024-07-29] MEDS: TRIAMCINOLONE ACET 0.025% CR 15 GM TUBE EXT SCH (20:24)
[2024-07-29] MEDS ORDERED: POLYETHYLENE (MIRALAX) 17 GM PACK PO SCH (21:00)
[2024-07-29] MEDS: LORazepam 0.5 MG TAB PO ONE (21:10)
[2024-07-30 07:52] LABS: Basophils # (auto) 0.03 K/uL (0.00-0.20); Basophils % (auto) 0.7 %; Eosinophils # (auto) 0.14 K/uL (0.00-0.50); Eosinophils % (auto) 3.2 %; Hematocrit (blood only) 30.6 % (37.0-47.0); Hemoglobin 10.3 g/dl (12.0-16.0); Immature Granulocytes # (auto) 0.01 K/uL (0.01-0.20); Immature Granulocytes % (auto) 0.2 %; Lymphocytes # (auto) 1.42 K/uL (1.20-3.40); Lymphocytes % (auto) 32.6 %; Mean Corpuscular Hemoglobin 29.4 pg (25.0-34.0); Mean Corpuscular Hgb Conc 33.7 g/dL (32.0-36.0); Mean Corpuscular Volume 87.4 fL (80.0-100.0); Monocytes # (auto) 0.72 K/uL (0.11-0.59); Monocytes % (auto) 16.5 %; Neutrophils # (auto) 2.04 K/uL (1.40-6.50); Neutrophils % (auto) 46.8 %; Platelet Count 209 K/uL (130-400); RDW Coefficient of Variation 12.8 % (11.5-14.5); RDW Standard Deviation 40.9 fL (36.4-46.3); White Blood Count 4.36 K/ul (4.8-10.8)
[2024-07-30] MEDS: AZITHROMYCIN 250 MG TAB PO SCH (08:03)
[2024-07-30 08:07] LABS: BUN Creatinine Ratio 10.1 (10-20); Creatinine Clr Calc Pharmacy 91.7 ml/min; Potassium 3.6 mmol/L (3.5-5.1)
[2024-07-30] MEDS: CALCIUM CARBONATE 500 MG CHEWABLE TAB PO PRN (13:09)
[2024-07-30] MEDS: hydrOXYzine HCl 25 MG TAB PO STA ×2 (13:56→14:07)
--- NOTE | 2024-07-30 14:19 | Hospitalist Progress Note ---
Date of Service July 30, 2024 Assessment & Plan (1) Hypoxia: Plan: Nargis is a 59-year-old female with PMH of anticardiolipin syndrome, SLE, Sjogren's, COPD, HLD, Raynaud's disease, anxiety, and ADHD. She presented on 07/28 for fever, VALENZUELA, epigastric pain, left hip pain, and hypoxia at home pulse ox x 1 week. She expresses a concern for mycoplasma pneumonia on arrival, as she had similar symptoms when she had it twice in the past. 85% SpO2 on RA BioFire negative CXR without acute findings Doppler of the lower extremities ordered: negative (2) SLE (systemic lupus erythematosus): Plan: Patient is on chronic steroid use for her lupus, but is currently tapering down Previously on methotrexate but discontinued Double-stranded DNA ordered, pending CRP and ESR ordered, pending Continue prednisone 1mg daily (3) Status post left hip replacement: Plan: Patient is s/p left hip total arthroplasty due to avascular necrosis on 05/08/2024 On A/P CT there was a notable 10 cm fluid collection adjacent to the left hip arthroplasty The ED did reach out to orthopedics on admission; no plan on draining at this time Orthopedics did feel it was consistent with postoperative state and not indicative of acute infection (4) Fever: Plan: Patient reports she has had intermittent fevers for the past week including a 103 F fever on the evening of 07/27 Likely URI/maxillary sinus infection May be secondary to poorly controlled autoimmune condition in the setting of a PE While recent left hip site does not look infected on exam, remains within the differential, will continue to monitor (5) Anticardiolipin antibody syndrome: Plan: Reason for aspirin daily (6) Constipation: Plan: Likely due to chronic opioid use CT AP: consistent with very large stool burden, likely exacerbating abdominal symptoms GoLytely dose given to decrease stool burden/overflow incontinence KUB ordered to determine if stool burden is ongoing contributing to abdominal pain Plan Disposition: Obs - Admit to [facility] telemetry Full code Regular diet VTE PPx: TBD pending Doppler studies; SCDs for now; will likely do empiric heparin IV Admission and Anticipated Discharge Date Admission Date: July 29, 2024 Supervising Physician Co-Signing Physician Notes I personally examined the patient and verified all hatch points of history and ex am, discussed case, and agree with decision making with Dr Omalley No respiratory complaints today. Has taken a gallon of GoLytelywatery stool but not really enough to be of significance. Does feel somewhat better. Vitals noted, in general she is awake and alert pleasant no distress. HEENT normocephalic atraumatic mucous membranes moist. Breathing unlabored no accessory muscle use good effort. Skin without pallor or icterus. Neuro without focal deficits. Hypoxiaviral versus atypical pneumoniadiscussed further workup versus empiric azithromycinwe all agreed to go with empiric treatment for now. Improving. Abdominal painrather significant constipation. Gallon of GoLytely with suboptimal results. Did check a KUB to ensure we did not simply misjudge output but stool is still noted. Another 85 g of MiraLAX x 1, fleets as needed. Continue bowel regimen. Will definitely need a fairly aggressive maintenance regimen after discharge given that this does not at all appear to be reflective of a purely acute incident. Skin rash/nail findings/hair lossseems like it probably relates to her autoimmune disease, but the connection is not entirely clear. We utilize steroid creams and moisturizers to at least make the rash less itchy for now. Fluid collection around hipalmost certainly reactive/postsurgical given that she is not having increasing pain or limiting symptoms, and rather has been progressing. DVT prophylaxis Lovenox Subjective Nargis Davenport was seen resting comfortably at bedside. Patient endorses that many of her symptoms have been improving and that she was able to eat breakfast without nausea this morning. Abdominal pain improving since stool softener and BMs. Patient does endorse some ongoing anxiety that she feels has been worsening. Patient denies chest pain, vomiting, SOB, cough, wheeze, or dizziness. Physical Exam Physical Exam: General: patient resting comfortably, NAD, non-toxic in appearance, answers questions appropriately. Skin: warm, dry, intact HEENT: NC/AT, anicteric sclera, conjunctiva without injection, moist mucus membranes. Heart: +S1/S2, regular, no m/r/g Lungs: equal air entry bilaterally, no rales/rhonchi/wheezes Abd: +BS, soft, NT/ND Ext: warm, no clubbing/cyanosis or edema Neuro: nonfocal, speech intact, no facial droop, moving all extremities. Results & Data Results & Data Vital Signs (Past 12 Hours) Vital Signs Temp Pulse Resp BP Pulse Ox O2 Del Method O2 Flow Rate 07/30/24 12:26 37.2 C 71 18 176/98 H 99 Room Air 07/30/24 10:56 Nasal Cannula 1 07/30/24 08:02 36.5 C 59 L 18 149/93 H 99 Room Air Resident Activity Tracking Resident Involvement: Resident Care Provided Care Provided: Adult Hospital Medicine (6) Constipation Constipation type: unspecified constipation type Qualified Code(s): K59.00 - Constipation, unspecified
--- NOTE | 2024-07-30 15:28 | XRay Report ---
EXAM: Radiograph of the Abdomen 1 View INDICATION: Constipation. TECHNIQUE: Frontal supine view of the abdomen/pelvis. COMPARISON: 01/20/2024 FINDINGS: Limitations: None. Gastrointestinal tract: Small amounts of formed stool throughout the redundant colon. Prominently aerated colonic loops noted in the left abdomen. There is a small amount of small bowel aeration. Organs: Visualized organ shadows appear grossly normal. Bones/joints: Posterior L5-S1 fusion hardware well-seated and intact. No acute osseous abnormality. Soft tissues: No abnormality noted. No radiopaque foreign body noted. IMPRESSION: Nonspecific, nonobstructive intestinal gas pattern. Only small amounts of formed stool noted in the colon. ACT 112: Negative or not required by law. Electronically signed by Ena Ravi 07-30-2024 3:27 PM
[2024-07-30] MEDS: POLYETHYLENE (MIRALAX) 17 GM PACK PO ONE (16:57)
[2024-07-30] MEDS ORDERED: SOD PHOSPHATE/SOD BIPHOSPHATE ENEMA 132 ML BTL PR PRN (17:04)
--- NOTE | 2024-07-30 17:16 | Billing Data ---
Date of Service July 30, 2024 Coding Level of Care Code 78364 SUB INP/OBS CARE MIN
[2024-07-30] MEDS: LORazepam 2 MG/1 ML VIAL IV STA (17:17)
[2024-07-30] MEDS: LORazepam 2 MG/1 ML VIAL IV PRN (22:37)
[2024-07-30 23:31] VITALS: PULSE 70; O2SAT 95
--- NOTE | 2024-07-31 07:23 | Discharge Summary ---
Date of Service July 31, 2024 Admission HPI Per Admitting Provider Nargis is a 59-year-old female with PMH of anticardiolipin syndrome, SLE, Sjogren's, COPD, HLD, Raynaud's disease, anxiety, and ADHD. She presented on 07/28 for fever, VALENZUELA, epigastric pain, left inguinal pain, and hypoxia at home pulse ox x 1 week. She expresses a concern for mycoplasma pneumonia on arrival, as she had similar symptoms when she had it twice in the past. Patient reports that she would check her home pulse ox after doing tasks around her house, such as putting laundry in the dryer. Her home pulse ox would then dip to around 80% on RA. She is not on supple oxygen at baseline. No CPAP at night. Last night, she also had a temperature of 103 F. She took some Tylenol and felt better. She has been using her rescue inhaler at home for her VALENZUELA. No SOB at rest. Additionally, she notes that when she is sitting and talking normally, her SpO2 does not drop below 97%. Patient denies history of DVT/PE. She does have history of a hip replacement with Dr. Aguirre in April 2024. Since then, she has been doing well, but will occasionally have muscle pain in her left hip. Patient took all of her regular morning medicines today; she is on chronic prednisone (currently down to 1 mg) for her lupus. The only recent change medication was that she was started on Abilify, and took it for 3 days, but stopped after her symptoms developed this week. She attributes her recent nausea to the Abilify. Of note, patient also reports that she feels like someone "punched her" in the epigastric region whenever she bends over. This, coupled with the nausea, has led her to eat less over the past week. Patient does have a history of anticardiolipin syndrome and takes aspirin daily. She believes she was temporarily on a blood thinner in the past (? Warfarin), but is not sure. She has no history of bleeding disorders, GI bleeds, brain bleeds, or stroke. Additionally, she has a new onset headache that she rates 7/10 at present; it is bilateral behind her eyes and wraps around to the posterior scalp. Normally she does not have headaches. Patient denies smoking, tobacco use, recent alcohol use. Patient is hypoxic at 85% SpO2 on RA. ED course: NSS 1000 mL IV Zofran 4 mg IV Acetaminophen 1000 mg p.o. ROS: Patient endorses fever 103, hot flashes last night, night-sweats, dizziness and headache when laying down, maxillary pressure, new VALENZUELA (only other time this happened was when she had mycoplasma PNA), left pelvic/hip pain, nausea, constipation, and chronic neuropathy in the feet. Patient denies chills, lightheadedness, chest pain, pleuritic CP, SOB at rest, coughing, hemoptysis, vomiting, and diarrhea. Admission Exam Per Admitting Provider General: no acute distress; pleasant affect; non-toxic appearing; well- nourished; cooperative; SpO2 100% on RA while talking HEENT: normocephalic, atraumatic; no scleral icterus; PERRLA; vision and hearing grossly intact Neck: supple; no lymphadenopathy; trachea midline Skin: warm, dry without signs of tenting; no cyanosis; no rashes, bruising, lesions, or erythema noted CV: chest wall NTP; RRR; S1/S2 normal; no murmurs/rubs/gallops; pulses intact and symmetric at radial, DP, and PT Lungs: no acute respiratory distress; symmetrical chest wall expansion; clear breath sounds across all lung brunson w/o adventitious sounds; no wheezing ABD: Soft, epigastric region is tender to palpation; all 4 other quadrants are NTP; BS present; no rebound/guarding; no distention Left hip: Surgical site examined does not show signs of erythema or drainage; ? Slight swelling around the site, could be seroma MSK: no tics or fasciculations; no edema noted in the LEs b/l, nonerythematous Neuro: A&Ox3; normal mood and affect; fluent speech; no focal deficits; diminished sensation in the left lateral extremity when compared to the right Principal Diagnosis viral vs atypical pna Discharge Exam Gen: NAD, WD/WN HEENT: NCAT, MMM CV: RRR, no m/r/g, S1/S2 normal Resp: CTAB, symmetrical chest rise, breathing non-labored Abd: Soft, nontender, nondistended, +BS MSK: Full ROM, normal str, no gross deformities Skin: Warm, dry, pink, no rashes or lesions noted Neuro: AOx3, CN II-XII grossly intact Psych: Mood-affect congruent. Speech pace and content normal. Discharge Data Allergies Allergy/AdvReac Type Severity Reaction Status Date / Time Penicillins AdvReac Severe Syncope as Verified 05/08/24 07:25 a child vancomycin AdvReac Severe Red Man Verified 05/08/24 07:25 Syndrome belimumab AdvReac Intermediate Nausea/Vomi Verified 05/08/24 07:25 ting cefazolin AdvReac Intermediate Itching Verified 05/08/24 07:25 sorbitan esters AdvReac Intermediate Nausea/Vomi Verified 05/08/24 07:25 ting Consultations 07/28/24 16:55 ED Decision to Admit Stat Ordered Studies 07/28/24 13:48 CT abd pelvis IV con only Stat IMPRESSION: 1. Left hip arthroplasty with adjacent intramuscular left proximal thigh peripherally enhancing 10 cm fluid collection. Sterility cannot be determined by imaging alone however in the clinical setting of a reported acute fever, abscess is a differential consideration. 2. No bowel obstruction or bowel wall thickening. Normal appendix. 3. Nonobstructing bilateral nephrolithiasis. 07/28/24 17:09 US venous doppler LE BI Stat IMPRESSION: No evidence of acute DVT. KUB 07/30/24 IMPRESSION: Nonspecific, nonobstructive intestinal gas pattern. Only small amounts of formed stool noted in the colon. 07/31/24 07:43 07/31/24 07:43 Hospital Course (1) Hypoxia: Nargis is a 59-year-old female with PMH of anticardiolipin syndrome, SLE, Sjogren's, COPD, HLD, Raynaud's disease, anxiety, and ADHD. She presented on 07/28 for fever, VALENZUELA, epigastric pain, left hip pain, and hypoxia at home pulse ox x 1 week. She expresses a concern for mycoplasma pneumonia on arrival, as she had similar symptoms when she had it twice in the past. - Initially required supplemental O2 - up to 2L NC - SpO2 down to 85% on RA - BioFire negative - CXR without acute findings - LE Venous Doppler negative - Started empirically on azithromycin - received 2 doses during admission - discharged on 250mg daily x 2d (2) Constipation: - Likely due to chronic opioid use - CT AP 07/28: consistent with very large stool burden, likely exacerbating abdominal symptoms - GoLytely dose given to decrease stool burden/overflow incontinence - KUB 07/30: Only small amounts of formed stool noted in the colon - Advised patient to continue daily Miralax, with goal of 1-2 soft BMs per day - Also discharged with PRN Zofran and Anusol suppository - Should follow up with PCP to discuss bowel regimen & modifying pain medications (3) Fever: - Patient reports she has had intermittent fevers for the past week including a 103 F fever on the evening of 07/27 - May be 2/2 poorly controlled autoimmune condition in the setting of a PE - Clinical findings + imaging make acute infection unlikely - Patient afebrile > 24h by time of discharge (4) Status post left hip replacement: - 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 - On CTAP showed 10 cm fluid collection adjacent to the left hip arthroplasty - Ortho was contacted by ED; felt this result is c/w postoperative state, not acute infection, draining not indicated (5) SLE (systemic lupus erythematosus): - Patient is on chronic steroid use for her lupus, but is currently tapering down - Previously on methotrexate but discontinued - Initial labs notable for ESR of 51, and ESR ordered, pending - Continued home prednisone 1mg daily (6) Anticardiolipin antibody syndrome: - Continued daily aspirin Total Time Total Time Spent Total Time Spent (In Minutes): See attending documentation Discharge Plan Discharge Items Patient Disposition: Home - Self-Care Reason For Visit: HYPOXIA, FEVER Discharge Diagnosis: hypoxia Activity: Per Instructions section Non-emergency contact: Primary Care Provider Call non-emergency contact if: you have any medication questions, your symptoms worsen and you have a fever Follow-up/Referrals: Jairo Escobar MD [Primary Care Provider] - 08/03/24 10:30 am (appt with Jessie Dias PA-C) Diet: Regular Addtl Attending Provider Instructions: You came to the hospital for difficulty breathing, especially with exertion or lying down, and were admitted for hypoxia. You were treated with antibiotics and given supplemental oxygen. You were deemed safe for discharge when you were able to breathe with normal effort and oxygen saturation. You will need to take 2 more days of antibiotics after discharge. You were also treated with an aggressive bowel regimen while hospitalized. The most recent imaging before discharge showed no signs of obstruction and a small amount of stool. You will need to continue daily laxatives after discharge, with the goal of 1-2 soft bowel movements every day. Your medication list has been reviewed and reconciled, and an updated list is included with your hospital discharge paperwork. Please review this list closely, and make note of any changes. We sent a prescription for azithromycin (Zithromax) to your [facility] pharmacy on [address]. Take 1 tablet each morning for the next 2 days. Your last dose should be 08/02 AM. You should continue daily Miralax, and use your discretion for the amount needed. For example, if you feel fullness/discomfort, then use 5 capfuls vs. use just 1 capful if you met the BM goal that day. We have also sent a prescription for Zofran. Take 1 tablet as needed for nausea. Take your medications as instructed; do not skip a dose. Make sure all of your doctors know every medicine you are taking (including agtd-[id number] medicines, vitamins, and supplements). Call your PCP before taking any new medicines because some of these may interact with your current medications, or may make your symptoms worse. Follow-up appointments: Make a follow-up appointment with your PCP within the next week. It is very important that you follow up with them shortly after discharge from the hospital. Keep all your follow-up appointments as already scheduled. If you cannot make an appointment, notify your provider. Please bring a copy of this discharge summary with you to your next office appointment so that your provider can review it at that time and stay updated on your hospitalization and potential changes in your care. Contact your PCP if your symptoms return or worsen. Call 911 or go to the ER if you experience any of the following: Sudden, severe abdominal pain or nausea/vomiting Severe chest pain, or chest pain that radiates (moves) to your jaw or arm Sudden, severe shortness of breath or difficulty breathing Thank you for allowing us to participate in your care. Pending Studies at Discharge: No Stand-Alone Forms: [employer], Work/School Release, Smoking Cessation Medications and DC Order Prescriptions: New azithromycin 250 mg Tablet 250 mg PO QAM Qty: 2 0RF ondansetron HCl 4 mg tablet 4 mg PO Q8H PRN (Reason: nausea and vomiting) Qty: 60 0RF hydrocortisone acetate [Anusol-HC] 25 mg suppository 25 mg RI DAILY PRN (Reason: hemorrhoids) 14 Days Qty: 12 0RF Continued amitriptyline 10 mg tablet 20 mg PO HS Qty: 180 3RF albuterol sulfate [Ventolin HFA] 90 mcg/actuation HFA aerosol inhaler 2 puff inhalation QID PRN (Reason: shortness of breath or wheezing) Qty: 6.7 3RF potassium chloride 20 mEq tablet extended release 20 meq PO DAILY Qty: 30 2RF zolpidem 10 mg tablet 10 mg PO HS PRN (Reason: Insomnia) Qty: 30 2RF lorazepam [Ativan] 0.5 mg tablet 0.5 mg PO BID PRN (Reason: Anxiety) Qty: 60 0RF Adult 50 Plus Probiotic 4 billion cell capsule 4,000 mmu cells PO QPM Rx Instructions: administer with a meal prednisone 1 mg tablet 1 mg PO QAM fluoxetine 20 mg tablet 40 mg PO QAM omeprazole 20 mg tablet,delayed release (DR/EC) 20 mg PO HS Qty: 90 3RF triamcinolone acetonide 0.1 % lotion 1 applic topical BID Qty: 60 0RF aspirin 81 mg Tablet,Delayed Release (Dr/Ec) 81 mg PO QAM folic acid 1 mg Tablet 1 mg PO QAM polyethylene glycol 3350 [Miralax] 17 gram/dose Powder 17 g PO HS cholecalciferol (vitamin D3) [Vitamin D3] 5,000 unit Tablet 5,000 unit PO QAM gabapentin [Neurontin] 300 mg capsule 900 mg PO TID Patient Comments: Patient uses 1-800mg TID along with 100mg-TID clotrimazole 10 mg fawad 10 mg mucous membrane TID PRN (Reason: Thrush) triamcinolone acetonide 0.1 % cream 1 applic topical BID PRN (Reason: Rash) clotrimazole 1 % cream 1 applic topical BID PRN (Reason: Rash/Lupus) oxycodone 5 mg tablet 5 mg PO Q6H PRN (Reason: pain) Qty: 30 0RF nystatin 100,000 unit/mL suspension 5 ml PO QID PRN (Reason: [place]) Rx Instructions: swish and spit Discharge Orders: Discharge Order (Routine); Ordered 07/31/24 Ordered By: Apollo Jean Baptiste Admission Data Admit Date/Time: 07/29/24 17:05 Attending Provider: Jairo Oliveira Admit Provider: Kayden Lauren Primary Care Provider: Jairo Escobar Other Providers: Zach Roca Other Interventions: Discharge Summary Assessment (RN) Last Done: 07/31/24 16:43 Supervising Physician Co-Signing Physician Notes Attending attestation Pt seen and examined in concert with Dr. Jean Baptiste. In agreement with the documented findings as noted in the resident documentation with any exceptions or additions as noted here. Ongoing improvement in abdominal distention and discomfort. Minimal cough at time of examination. VS as noted. On examination, S1/S2 nl RRR no MCG. CTAB. Abd NT/ND BS+ve Pneumonia, presumed viral vs. atypical - complete course of azithromycin x 5 days w/ precautions for worsening/changing sx Constipation, acute on chronic - improvement on golytely and miralax regimen - will need bowel regimen routinely with good follow up at discharge w/ goal of 2 soft bowel movement per day Fluid collection at hip - ortho consulted - postop/reactive - encourage pain control and avoid opioids where able Else see resident documentation as noted. Total attending physician time spent with this patient's care on the day of discharge: 35 minutes. Resident Activity Tracking Resident Involvement: Resident Care Provided Care Provided: Adult Hospital Medicine
[2024-07-31 07:34] VITALS: RESP 20; TEMP 98.1
[2024-07-31] MEDS: ONDANSETRON INJ 2 MG/ML 2 ML VIAL IV PRN (07:59)
[2024-07-31 08:07] LABS: Basophils # (auto) 0.02 K/uL (0.00-0.20); Basophils % (auto) 0.4 %; Eosinophils # (auto) 0.21 K/uL (0.00-0.50); Eosinophils % (auto) 4.1 %; Hemoglobin 9.8 g/dl (12.0-16.0); Immature Granulocytes # (auto) 0.01 K/uL (0.01-0.20); Immature Granulocytes % (auto) 0.2 %; Lymphocytes # (auto) 1.54 K/uL (1.20-3.40); Lymphocytes % (auto) 30.2 %; Mean Corpuscular Hemoglobin 29.3 pg (25.0-34.0); Mean Corpuscular Hgb Conc 33.8 g/dL (32.0-36.0); Mean Corpuscular Volume 86.6 fL (80.0-100.0); Mean Platelet Volume 9.9 fL (9.4-12.4); Monocytes # (auto) 0.71 K/uL (0.11-0.59); Monocytes % (auto) 13.9 %; Neutrophils # (auto) 2.61 K/uL (1.40-6.50); Neutrophils % (auto) 51.2 %; Platelet Count 217 K/uL (130-400); RDW Coefficient of Variation 12.8 % (11.5-14.5); RDW Standard Deviation 40.2 fL (36.4-46.3); Red Blood Count 3.35 M/uL (4.20-5.40)
[2024-07-31] MEDS: ENOXAPARIN INJ 40 MG/0.4 ML SYR SQ SCH (08:08)
[2024-07-31 08:27] LABS: BUN Creatinine Ratio 5.7 (10-20); Calcium 8.8 mg/dl (8.6-10.3); Creatinine Clr Calc Pharmacy 90.4 ml/min; Potassium 3.1 mmol/L (3.5-5.1)
[2024-07-31 16:44] VITALS: BP 133/75
== END 2024-07-31 17:31 | disposition home or self-care (01) | DRG 194 ==
LOC: 2N 13:11 → ED 13:11 → SUATTDRO 18:12 → 2N 20:04 → SUATTDRO 07-29 17:05 → 2N 07-29 19:31
DX: E78.5 Hyperlipidemia, unspecified; Z88.0 Allergy status to penicillin; Z79.82 Long term (current) use of aspirin; Z98.1 Arthrodesis status; I73.00 Raynaud's syndrome without gangrene; M32.9 Systemic lupus erythematosus, unspecified; Z96.642 Presence of left artificial hip joint; Z88.1 Allergy status to other antibiotic agents; I10 Essential (primary) hypertension; K59.03 Drug induced constipation; Z79.52 Long term (current) use of systemic steroids; R09.02 Hypoxemia; E03.9 Hypothyroidism, unspecified; F90.9 Attention-deficit hyperactivity disorder, unspecified type; J12.9 Viral pneumonia, unspecified; M35.00 Sjogren syndrome, unspecified; T40.605A Adverse effect of unspecified narcotics, initial encounter; Y92.009 Unspecified place in unspecified non-institutional (private) residence as the place of occurrence of the external cause; D68.61 Antiphospholipid syndrome; K58.9 Irritable bowel syndrome, unspecified; J44.9 Chronic obstructive pulmonary disease, unspecified

== ENCOUNTER 2025-05-14 06:15 | Observation (INO) ==
--- NOTE | 2025-05-14 06:45 | Emergency Department Note ---
Impression & Plan Ambulatory dysfunction, Acute pain of left hip, Status post left hip replacement, Chronic right hip pain, Chronic adrenal insufficiency ED Provider Note NAME: ANTHONY KATE AGE: 59 SEX: F : 1965 ARRIVES VIA: Walk-In INFORMANT: Patient ED PROVIDER(S): Harsh Reina MD CHIEF COMPLAINT: Left hip pain PLAN: Disposition: Admit MEDICAL DECISION MAKING: The patient is a pleasant 59-year-old woman with a past medical history of chronic adrenal insufficiency on hydrocortisone, SLE, COPD, fibromyalgia, hypertension, hyperlipidemia, hypothyroidism, GERD, osteoarthritis with chronic right hip pain with scheduled RYAN on 05/28 at this facility, history of left RYAN who presents to the emergency department via walk-in for evaluation of left hip pain that has been ongoing since of last week which she initially began to notice when she was at work at [employer]. She reports she does not recall any specific moment where the pain may have started. She reports it has been difficult to straighten her leg because of the pain. She reports she came to Emergency Department on Wednesday but because it was so busy with long waits decided to go home without checking in to be seen. She denies any fevers, chills, cough congestion, GI or symptoms. Patient denies falls or trauma. On evaluation the patient no distress, afebrile blood pressure 170/90 vital signs otherwise stable. She has mild discomfort of the left lower abdomen/groin. No palpable hernias. Limited range of motion secondary to pain. Distal PMS is intact. WBC and platelets within normal limits. H/H similar to prior values. D-dimer was 530 and negative per age adjustment. Chemistry without metabolic acidosis. Electrolytes and LFTs unremarkable. CPK within normal limits. Lipase is normal. TSH within normal limits. Random cortisol continues to be low at 1.6 in setting of chronic adrenal insufficiency. UA without evidence of infection. X-ray of pelvis and left hip was obtained and was negative for acute fracture or dislocation. Osteopenia is present. CT of the abdomen pelvis was completed and was negative for acute intra-abdominal process. The patient was treated with IV fluid hydration, IV APAP, stress dose hydrocortisone given she had missed her morning dose and has been experiencing acute on chronic pain. She was additionally given her home oxycodone. Patient denied any improvement in her pain and given the patient is already suffering from ambulatory dysfunction from her right hip but now has left hip pain where she reports staying in bed all day for days she agrees with plan for admission for further assessment and management. Case was [place] [facility] [place], who will evaluate the patient for admission. Triage Nursing notes reviewed and agree them. Prior/external medical records reviewed Vital Signs: reviewed Differential diagnosis: Fracture, subluxation, dislocation, contusion, ligamentous injury, neurovascular, compartment syndrome, rhabdomyolysis, as well as other pathologies. ER treatment provided: See below. Diagnostics interpreted by me: Cardiac Monitoring: An order for continuous cardiac monitoring was placed and demonstrated normal sinus rhythm, 60 bpm, no ectopy. Laboratory studies: See below Imaging studies: See below Consultation(s): [facility] hospitalist HPI: Per MDM. ROS: See above HPI for pertinent positives & negatives. A total of 10 systems reviewed and were otherwise negative. VITALS:See Below PHYSICAL EXAMINATION: GENERAL: Awake, alert, in no distress HENT: Normocephalic, atraumatic. Oropharynx with dry mucous membranes and otherwise unremarkable. EYES: Normal conjunctiva. Sclera non-icteric. NECK: Supple. No nuchal rigidity. FROM. No JVD. RESPIRATORY: Clear to auscultation. CARDIAC: Regular rate, normal rhythm. Extremities warm and well perfused. Pulses equal. ABDOMEN: Soft, non-distended. Mild discomfort of the left lower abdomen/groin. No palpable hernias. No rebound or guarding. No masses. MUSCULOSKELETAL: Chest examination reveals no tenderness. The back is symmetrical on inspection without obvious abnormality. There is no CVA tenderness to palpation. No joint edema. Limited range of motion of left hip secondary to pain. Distal PMS is intact. LOWER EXTREMITIES: Calves are equal size bilaterally and non-tender. No edema. No discoloration. NEURO: Normal sensorium. No sensory or motor deficits noted. SKIN: No rash or jaundice noted. 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 Prediabetes Fatigue Peripheral neuropathy Status post left hip replacement (Acute ~04/2024) Raynaud's disease 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 Pt instructed to notify surgeon of this information. Pt voices understanding. pre op edu rev. History of depression situational Sciatica Interstitial cystitis controlled at current Fibromyalgia History of hyperlipidemia no medication for past 10 yrs per pt History of hypertension no medication for past 10 yrs per pt Raynaud's disease Sjogren's syndrome SIADH (syndrome of inappropriate ADH production) History of prediabetes not current per pt. Peripheral neuropathy MGUS (monoclonal gammopathy of unknown significance) Hx of Carlos thyroiditis Chronic venous insufficiency Antiphospholipid antibody syndrome reason for aspirin use Hypoxia hx, w/pneumonia "in the past," also occurs with lupus flares or illness Paroxysmal supraventricular tachycardia s/p ablation Carotid arterial disease [facility] [place] note, "She had a carotid ultrasound many years ago and it did not show any serious disease" Hx MRSA infection (~2020) 2020 - while visiting hospital, was acquired > completed tx, no issues since IBS (irritable bowel syndrome) Hx of migraines Arachnoiditis d/t failed lumbar fusion ADHD no medication for Thoracic ascending aortic aneurysm [facility] [place]ascular surgery monitoring Chest CT 12/2023: There is mild aneurysmal dilatation of the ascending thoracic aorta which measures up to 4.2 cm in diameter. SLE (systemic lupus erythematosus) Dr Duarte, s rheumatology COPD (chronic obstructive pulmonary disease) inh and neb prn > very rare use pat call 04/20/25 - ? official dx, pt reports entry was placed around time she had bronchitis (yrs ago), had hx eval with pulmonary (2023 or 2024 ) and pt was told her lungs are fine. Anxiety Osteoarthritis Chronic back pain Kidney stones "still present" - no problems known at current; haven't moved in yrs per pt. Chronic constipation GERD (gastroesophageal reflux disease) controlled, stable per pt Anemia on occ - not known to be current problem. Surgical History History of total left hip replacement 04/2024, anterior History of surgery on arm Right arm mass excision (10/23/2021[place] [facility] [place]open reduction internal [place]) fracture Right Humerus 2018 d/t fall on ice > hardware intact History of section History of removal of cyst Eyelid History of laparoscopy "Checking for endometriosis" History of dilatation and curettage History of hand surgery right hand Status post wrist surgery right wrist pin in place History of laminectomy x2, 1998 and ~2004 History of lumbar spinal fusion ~2015, L5-S1 History of colonoscopy (2018) History of esophagogastroduodenoscopy (EGD) History of tooth extraction all teeth History of tonsillectomy and adenoidectomy History of neck surgery left lymph node removal d/t englargement (benign) History of endoscopic sinus surgery History of cardiac radiofrequency ablation for SVT (2009), [place]; f/u [facility] annually Family History Mother Family hx colonic polyps Father Myocardial infarction Grandmother (Maternal) No problems noted. Grandmother (Paternal) Myocardial infarction Other No family history of adverse response to anesthesia Denies family history of Ovarian cancer Prostate cancer Breast cancer Colorectal cancer Social History Smoking Status: Former smoker Tobacco Type: Cigarettes Age Started Using Tobacco: 12; Age Quit Using Tobacco: 50; packs per day: 1; Second Hand Exposure: No; Do You Dip or Chew Tobacco: No; Hx Alcohol Use: No Hx Substance Use: No Preferred Language: Telugu Communication Ability: Effective Buttonhole Maker Required: No Beliefs That Will Affect Care: Restorationist Restorationist Beliefs: Nondenominational marital status: Current Living Situation: Family and Other Current Living Situation Comment: One story house current occupational status: employed and unemployed Feels Safe at Home: Yes Childhood Exposure to Second-Hand Smoke: Yes Diet: regular Dental Care, Regularly: No Physical Activity Frequency: 3-4 Times per Week Physical Activity Frequency Comment: crunches, stretching, weights Seatbelt Use: always Sunscreen Use: Yes Assistive Devices: Denture - Upper, Denture - Lower and Other Allergies Allergies Allergy/AdvReac Type Severity Reaction Status Date / Time cefazolin Allergy Unknown Itching Verified 05/04/25 14:46 vancomycin AdvReac Severe Red Man Verified 05/04/25 14:46 Syndrome belimumab AdvReac Unknown Nausea/Vomi Verified 05/04/25 14:46 ting Penicillins AdvReac Unknown Syncope as Verified 05/04/25 14:46 a child sorbitan esters AdvReac Unknown Nausea/Vomi Verified 05/04/25 14:46 ting Home Meds Home Medications Medication Instructions Recorded Confirmed aspirin 81 mg tablet,delayed 81 mg PO QAM 07/27/18 05/14/25 release folic acid 1 mg tablet 1 mg PO QAM 07/27/18 05/14/25 polyethylene glycol 3350 17 17 g PO HS 07/27/18 05/14/25 gram/dose oral powder (Miralax) clotrimazole 1 % topical cream 1 applic topical UD PRN Rash/Lupus 03/21/24 05/14/25 clotrimazole 10 mg fawad 10 mg mucous membrane UD PRN Thrush 03/21/24 05/14/25 acetaminophen 325 mg tablet 325 mg PO UD PRN Pain 08/01/24 05/14/25 (Tylenol) ibuprofen 200 mg tablet 200 mg PO UD PRN Pain 08/01/24 05/14/25 triamcinolone acetonide 0.1 % 1 applic topical UD PRN Rash 11/02/24 05/14/25 lotion furosemide 20 mg tablet 20 mg PO UD PRN ankle swelling 04/09/25 05/14/25 gabapentin 100 mg capsule 100 mg PO TID 04/09/25 05/14/25 gabapentin 800 mg tablet 800 mg PO TID 04/09/25 05/14/25 albuterol sulfate 1.25 mg/3 mL 1.25 mg inhalation UD PRN hx 04/20/25 05/14/25 solution for nebulization pneumonia albuterol sulfate 90 mcg/actuation 2 puffs inhalation UD PRN hx 04/20/25 05/14/25 aerosol inhaler pneumonia aripiprazole 2 mg tablet (Abilify) 2 mg PO QAM 04/20/25 05/14/25 clobetasol 0.05 % topical cream 1 applic topical UD PRN Skin 04/20/25 05/14/25 Irritation hydrochlorothiazide 25 mg tablet 25 mg PO UD PRN Lower extremity 04/20/25 05/14/25 swelling hydrocortisone 2.5 % topical cream 1 applic [place] UD PRN hemorrhoids 04/20/25 05/14/25 with perineal applicator (Anusol-HC) hydroxychloroquine 200 mg tablet 250 mg PO QAM 04/20/25 05/14/25 levothyroxine 75 mcg tablet 75 mcg PO 6XWK 04/20/25 05/14/25 nystatin 100,000 unit/mL oral 5 ml PO UD PRN thrush 04/20/25 05/14/25 suspension omeprazole 20 mg capsule,delayed 20 mg PO UD PRN Acid Reflux 04/20/25 05/14/25 release zolpidem 10 mg tablet 10 mg PO HS Insomnia 04/20/25 05/14/25 celecoxib 100 mg capsule (Celebrex) 100 mg PO DAILY PRN Pain 04/25/25 05/14/25 Previous Rx's Medication Instructions Recorded oxycodone 5 mg tablet 5 mg PO Q6H PRN pain #30 tabs 05/08/24 amitriptyline 10 mg tablet 20 mg (2 x 10 mg) PO HS #180 tabs 09/12/24 cholecalciferol (vitamin D3) 1,250 1,250 mcg PO Q7D #14 caps 11/13/24 mcg (50,000 unit) capsule fluoxetine 20 mg tablet 40 mg (2 x 20 mg) PO QAM #180 tabs 12/11/24 potassium chloride 20 mEq 20 meq PO BID #120 tabs 12/18/24 tablet,extended release walker (Ultra-Light Rollator misc) #1 ea 02/09/25 lorazepam 0.5 mg tablet (Ativan) 0.5 mg PO BID PRN Anxiety #60 tabs 03/26/25 hydrocortisone 10 mg tablet 30 mg (3 x 10 mg) PO DAILY 90 days 05/01/25 #270 tabs Results & Data (ED) Vital Signs Vital Signs - 24 hr 05/14/25 06:20 05/14/25 08:09 05/14/25 10:00 Temperature 36.3 C L Temperature Source Temporal Artery Scan Pulse Rate 65 Pulse Rate [Radial] 57 L 53 L Pulse Rhythm [Radial] Regular Regular Respiratory Rate 18 16 16 Respiratory Effort / Characteristics Non-Labored Spontaneous Non-Labored Non-Labored Respiratory Depth Normal Normal Normal Respiratory Pattern Regular Regular Regular Blood Pressure 179/94 H Blood Pressure [Right Arm] 178/95 H 154/95 H Blood Pressure Mean 122 Blood Pressure Mean [Right Arm] 122 114 Blood Pressure Position Sitting Pulse Oximetry 99 100 96 Oxygen Delivery Method Room Air Room Air Room Air Sepsis Recent Fever Within 48 Hours No Sepsis New/Unexplained Change in Mental Status N/A Sepsis Action Taken by Nursing No Action Required Laboratory Data Attestation: I reviewed the patient's lab results. 05/14/25 07:35 05/14/25 07:35 Lab Results 05/14/25 Range/Units 07:35 WBC 6.98 (4.8-10.8) K/ul RBC 4.12 L (4.20-5.40) M/uL Hgb 11.8 L (12.0-16.0) g/dl Hct 36.8 L (37.0-47.0) % MCV 89.3 (80.0-100.0) fL MCH 28.6 (25.0-34.0) pg MCHC 32.1 (32.0-36.0) g/dL RDW Std Deviation 43.6 (36.4-46.3) fL RDW Coeff of Zach 13.4 (11.5-14.5) % Plt Count 229 (130-400) K/uL MPV 9.9 (9.4-12.4) fL Immature Gran % (Auto) 0.3 % Neut % (Auto) 52.6 % Lymph % (Auto) 31.2 % [place] % (Auto) 12.0 % Eos % (Auto) 3.2 % Baso % (Auto) 0.7 % Neut # (Auto) 3.67 (1.40-6.50) K/uL Lymph # (Auto) 2.18 (1.20-3.40) K/uL [place] # (Auto) 0.84 H (0.11-0.59) K/uL Eos # (Auto) 0.22 (0.00-0.50) K/uL Baso # (Auto) 0.05 (0.00-0.20) K/uL Immature Gran # (Auto) 0.02 (0.01-0.20) K/uL D-Dimer 530 H* (0-500) ug/L FEU Sodium 135 L (136-145) mmol/L Potassium 3.8 (3.5-5.1) mmol/L Chloride 100 (98-107) mmol/L Carbon Dioxide 24 (21-32) mmol/L Anion Gap 11 (3-11) BUN 14 (6-23) mg/dl Creatinine 1.00 (0.6-1.2) mg/dl Est Cr Clr Drug Dosing 63.3 ml/min eGFR 64.90 BUN/Creatinine Ratio 14.0 (10-20) Glucose 70 (70-99(Fasting)) mg/dl Calcium 9.2 (8.6-10.3) mg/dl Phosphorus 4.2 (2.5-4.9) mg/dl Magnesium 1.9 (1.7-2.4) mg/dl Total Bilirubin 0.4 (0.2-1.0) mg/dl AST 24 (13-39) U/L ALT 17 (7-52) U/L Alkaline Phosphatase 83 (34-104) U/L Total Creatine Kinase 110 (26-192) U/L Total Protein 7.7 (6.0-8.3) gm/dl Albumin 3.9 (3.4-5.0) gm/dl Globulin 3.8 (2.5-4.0) gm/dl Albumin/Globulin Ratio 1.0 (0.9-2) Lipase 66 (11-82) U/L TSH 2.289 (0.300-4.500) uIu/ml Random Cortisol 1.68 mcg/dl Urine Color Yellow Urine Appearance Clear (Clear) Urine pH 7.0 (4.5-7.5) Ur Specific [place] 1.008 (1.000-1.030) Urine Protein Negative (Negative) Urine Glucose (UA) Negative (Negative) Urine Ketones Negative (Negative) Urine Blood Negative (Negative) Urine Nitrite Negative (Negative) Urine Bilirubin Negative (Negative) Urine Urobilinogen Negative (Negative) Ur Leukocyte Esterase Negative (Negative) Urine Comment Administered Medications Amitriptyline HCl (Amitriptyline Hcl 10 Mg Tab) 20 mg PO HS ANGELY Stop: 06/13/25 20:59 Last Admin: 05/14/25 21:47 Dose: 20 mg Documented By: SANDRO Gabapentin (Gabapentin 100 Mg Cap) 100 mg PO TID ANGELY Stop: 06/13/25 13:59 Last Admin: 05/14/25 21:47 Dose: 100 mg Documented By: Admin: 05/14/25 15:20 Dose: 100 mg Documented By: ARON Gabapentin (Gabapentin 800 Mg Tab) 800 mg PO TID ANGELY Stop: 06/13/25 13:59 Last Admin: 05/14/25 21:48 Dose: 800 mg Documented By: Admin: 05/14/25 15:20 Dose: 800 mg Documented By: ARON Oxycodone HCl (Oxycodone Hcl Ir 5 Mg Tab (Immediate Release)) 5 mg PO Q6H PRN PRN Reason: Pain Stop: 05/28/25 13:45 Last Admin: 05/14/25 21:48 Dose: 5 mg Documented By: Admin: 05/14/25 15:19 Dose: 5 mg Documented By: ARON Potassium Chloride (Potassium Chloride Crtab 20 Meq Tabcr) 20 meq PO BID ANGELY Stop: 06/13/25 20:59 Last Admin: 05/14/25 21:48 Dose: 20 meq Documented By: SANDRO Vitamin D (Cholecalciferol 125 Mcg (5,000 Units) Tab) 125 mcg PO Q7D@1630 ANGELY Stop: 06/13/25 16:29 Last Admin: 05/14/25 17:54 Dose: 125 mcg Documented By: EMMA Zolpidem Tartrate (Zolpidem Tartrate 5 Mg Tab) 10 mg PO HS ANGELY Stop: 06/13/25 20:59 Last Admin: 05/14/25 21:48 Dose: 10 mg Documented By: SANDRO Discontinued Medications Hydrocortisone Sodium Succinate (Hydrocortisone Sod Succinate 100 Mg/2 Ml Vial) 100 mg IV NOW STA Stop: 05/14/25 07:20 Last Admin: 05/14/25 07:44 Dose: 100 mg Documented By: TOSHA Acetaminophen (Ofirmev) 1,000 mg in 100 mls @ 400 mls/hr IV NOW STA Stop: 05/14/25 07:33 Last Infusion: 05/14/25 08:06 Dose: Infused Documented By: Admin: 05/14/25 07:44 Dose: 400 mls/hr Documented By: TOSHA Sodium Chloride (Nss) 1,000 mls @ 999 mls/hr IV .Q1H1M ONE Stop: 05/14/25 08:20 Last Infusion: 05/14/25 08:48 Dose: Infused Documented By: Admin: 05/14/25 07:44 Dose: 999 mls/hr Documented By: TOSHA Ioversol (Optiray 320 100ml) 94 ml IV ONCE ONE Stop: 05/14/25 09:51 Last Admin: 05/14/25 09:50 Dose: 94 ml Documented By: MISTI Oxycodone HCl (Oxycodone Hcl Ir 5 Mg Tab (Immediate Release)) 5 mg PO NOW STA Stop: 05/14/25 08:14 Last Admin: 05/14/25 08:26 Dose: 5 mg Documented By: TOSHA Imaging Data Radiologist's Impression: Hip/Pelvis X-Ray 05/14/25 06:53 EXAM: XR hip LT 2V w pelvis CLINICAL HISTORY: pain, ?dislocation. TECHNIQUE: X-ray images of the left hip joints in AP and lateral projections. COMPARISON: Comparison with the previous MRI study dated 01/26/2025. The current study shows: FINDINGS: Hip Joints: Osteopenia is noted. There is post-operative status of left hip total arthroplasty with an intact device, demonstrating good bone contact surface. The acetabular cap is well aligned with fixation by screw. There is no sign of device breakage, loosening, or infectious changes on the basis of this X-ray. There are arthritic changes of both sacroiliac joints, with faint subarticular sclerosis. Symphysis Pubis: The symphysis pubis is normal and intact. There is no evidence of separation or widening. Soft Tissues: The visualized soft tissues are normal and unremarkable. There is no soft tissue swelling, calcification, or masses. Additional Findings: No other significant abnormalities are noted. There is post-operative status of L5 and S1 vertebral fixation by mirela and screws, with L5/S1 disc cage insertion noted. IMPRESSION: 1. There is no evidence of acute fracture or dislocation. 2. Osteopenia is present. 3. Post-operative status of left hip total arthroplasty with intact device. 4. The acetabular cap is well aligned with fixation by screw. 5. There is no sign of device breakage, loosening, or infectious changes on the basis of this X-ray. 6. There are bilateral sacroiliac degenerative changes. 7. Post-operative status of lower lumbar spine fixation. Disclaimer: A subtle bone abnormality or fracture may not be readily apparent on X-rays, thus clinical correlation and further imaging including follow-up CT, MRI, or follow-up X-rays are advised as needed. Electronically signed by Dima Bassett 05-14-2025 08:17 AM Abdomen/Pelvis CT 05/14/25 07:17 CT SCAN OF THE ABDOMEN AND PELVIS WITH IV CONTRAST CLINICAL HISTORY: Left hip/groin pain. Generalized abdominal pain. COMPARISON STUDY: No priors. TECHNIQUE: Following the IV administration of 94 cc of Optiray 320, CT scan of the abdomen and pelvis is performed from the lung bases to the proximal femora. Images are reviewed in the axial, sagittal, and coronal planes. IV contrast was administered without complication. A dose lowering technique was utilized adhering to the principles of ALARA. CT DOSE: 952.51 mGy.cm FINDINGS: Lung bases: The heart is top normal in size and without pericardial effusion. Emphysematous change is noted the lung bases. There are trace pleural effusions. No airspace consolidation is seen typical for pneumonia. Liver: The contrast-enhanced liver is normal in size, contour, and attenuation. There is no intrahepatic biliary ductal dilatation. The hepatic veins and portal veins are patent. Gallbladder: Unremarkable. Spleen: Normal in size and attenuation. Pancreas: Unremarkable. Adrenal glands: Unremarkable. Kidneys: The contrast enhanced kidneys are normal in size and without hydronephrosis. The kidneys enhance symmetrically. There is a 5 mm nonobstructing left renal calculus. A 2 mm nonobstructing calculus is seen on the right. No ureteral stone is identified. There is a 1 cm left renal cyst. Additional subcentimeter cortical hypodensities also likely represent cysts but are too small for definitive characterization. Abdominal vasculature: The abdominal aorta is normal in course and caliber noting moderate atherosclerotic calcification. Bowel: There is mild to moderate colonic fecal retention. No bowel obstruction is seen. The appendix is well-visualized and normal. Peritoneum: There is no intraperitoneal free air or abdominal ascites. Lymphadenopathy: None. Pelvic viscera: Evaluation of the pelvis is degraded by streak artifact from a left hip arthroplasty. The bladder is distended but otherwise normal in appearance. The uterus and adnexa are normal as visualized. Skeletal structures: The skeletal structures are osteopenic. Postsurgical and spondylotic change is noted in the lumbar spine. No lytic or blastic lesions are seen. A left hip arthroplasty is in place. IMPRESSION: 1. No acute infectious or inflammatory findings are identified in the abdomen or pelvis. 2. Emphysema and trace pleural effusions. 3. Bilateral nephrolithiasis. 4. Additional findings as above. ACT 112: Negative or not required by law. Electronically signed by: Issac Aceves M.D. 05/14/2025 10:10 AM Discharge Plan Visit Data Chief Complaint: Groin Pain Stated Complaint: GROIN PAIN ED Provider: Harsh Reina Discharge Problem: Ambulatory dysfunction, Acute pain of left hip, Status post left hip replacement, Chronic right hip pain, Chronic adrenal insufficiency Patient Disposition: Admitted As Inpatient Condition: Fair Discharge Instructions Interventions: ED Discharge Assessment Last Done: 05/14/25 13:47
[2025-05-14] MEDS: SODIUM CHLORIDE 0.9% 1,000 ML IV ONE (07:44)
[2025-05-14] MEDS: HYDROCORTISONE SOD SUCCINATE 100 MG/2 ML VIAL IV STA (07:44)
[2025-05-14] MEDS: ACETAMINOPHEN 1,000 MG/100 ML VIAL IV STA (07:44)
[2025-05-14 08:05] LABS: Hematocrit (blood only) 36.8 % (37.0-47.0); Hemoglobin 11.8 g/dl (12.0-16.0); Immature Granulocytes # (auto) 0.02 K/uL (0.01-0.20); Immature Granulocytes % (auto) 0.3 %; Mean Corpuscular Hemoglobin 28.6 pg (25.0-34.0); Mean Corpuscular Volume 89.3 fL (80.0-100.0); Platelet Count 229 K/uL (130-400); RDW Standard Deviation 43.6 fL (36.4-46.3); Red Blood Count 4.12 M/uL (4.20-5.40); White Blood Count 6.98 K/ul (4.8-10.8)
--- NOTE | 2025-05-14 08:17 | XRay Report ---
EXAM: XR hip LT 2V w pelvis CLINICAL HISTORY: pain, ?dislocation. TECHNIQUE: X-ray images of the left hip joints in AP and lateral projections. COMPARISON: Comparison with the previous MRI study dated 01/26/2025. The current study shows: FINDINGS: Hip Joints: Osteopenia is noted. There is post-operative status of left hip total arthroplasty with an intact device, demonstrating good bone contact surface. The acetabular cap is well aligned with fixation by screw. There is no sign of device breakage, loosening, or infectious changes on the basis of this X-ray. There are arthritic changes of both sacroiliac joints, with faint subarticular sclerosis. Symphysis Pubis: The symphysis pubis is normal and intact. There is no evidence of separation or widening. Soft Tissues: The visualized soft tissues are normal and unremarkable. There is no soft tissue swelling, calcification, or masses. Additional Findings: No other significant abnormalities are noted. There is post-operative status of L5 and S1 vertebral fixation by mirela and screws, with L5/S1 disc cage insertion noted. IMPRESSION: 1. There is no evidence of acute fracture or dislocation. 2. Osteopenia is present. 3. Post-operative status of left hip total arthroplasty with intact device. 4. The acetabular cap is well aligned with fixation by screw. 5. There is no sign of device breakage, loosening, or infectious changes on the basis of this X-ray. 6. There are bilateral sacroiliac degenerative changes. 7. Post-operative status of lower lumbar spine fixation. Disclaimer: A subtle bone abnormality or fracture may not be readily apparent on X-rays, thus clinical correlation and further imaging including follow-up CT, MRI, or follow-up X-rays are advised as needed. Electronically signed by Dima Bassett 05-14-2025 08:17 AM
[2025-05-14 08:18] LABS: Appearance Urine Clear (Clear); Glucose Urine UA Negative (Negative)
[2025-05-14 08:34] LABS: Thyroid Stimulating Hormone 2.289 uIu/ml (0.300-4.500)
[2025-05-14 09:14] LABS: Albumin Level 3.9 gm/dl (3.4-5.0); Anion Gap 11.0 (3-11); Bilirubin,Total 0.4 mg/dl (0.2-1.0); Calcium 9.2 mg/dl (8.6-10.3); Carbon Dioxide 24.0 mmol/L (21-32); Chloride 100.0 mmol/L (98-107); Magnesium 1.9 mg/dl (1.7-2.4); Potassium 3.8 mmol/L (3.5-5.1); Sodium 135.0 mmol/L (136-145)
[2025-05-14 09:20] LABS: Alanine Aminotransferase 17.0 U/L (7-52); Albumin Globulin Ratio 1.0 (0.9-2); Alkaline Phosphatase 83.0 U/L (34-104); Blood Urea Nitrogen 14.0 mg/dl (6-23); Creatine Kinase 110.0 U/L (26-192); Creatinine Clr Calc Pharmacy 63.3 ml/min; Globulin 3.8 gm/dl (2.5-4.0); Glucose 70.0 mg/dl (70-99(Fasting)); Lipase 66.0 U/L (11-82); Total Protein 7.7 gm/dl (6.0-8.3)
[2025-05-14] MEDS: OPTIRAY 320 100ml IV ONE (09:50)
--- NOTE | 2025-05-14 10:11 | CT Scan Report ---
CT SCAN OF THE ABDOMEN AND PELVIS WITH IV CONTRAST CLINICAL HISTORY: Left hip/groin pain. Generalized abdominal pain. COMPARISON STUDY: No priors. TECHNIQUE: Following the IV administration of 94 cc of Optiray 320, CT scan of the abdomen and pelvi s is performed from the lung bases to the proximal femora. Images are reviewed in the axial, sagittal , and coronal planes. IV contrast was administered without complication. A dose lowering technique wa s utilized adhering to the principles of ALARA. CT DOSE: 952.51 mGy.cm FINDINGS: Lung bases: The heart is top normal in size and without pericardial effusion. Emphysematous change is noted the lung bases. There are trace pleural effusions. No airspace consolidation is seen typical f or pneumonia. Liver: The contrast-enhanced liver is normal in size, contour, and attenuation. There is no intrahepa tic biliary ductal dilatation. The hepatic veins and portal veins are patent. Gallbladder: Unremarkable. Spleen: Normal in size and attenuation. Pancreas: Unremarkable. Adrenal glands: Unremarkable. Kidneys: The contrast enhanced kidneys are normal in size and without hydronephrosis. The kidneys enh ance symmetrically. There is a 5 mm nonobstructing left renal calculus. A 2 mm nonobstructing calculu s is seen on the right. No ureteral stone is identified. There is a 1 cm left renal cyst. Additional subcentimeter cortical hypodensities also likely represent cysts but are too small for definitive princess racterization. Abdominal vasculature: The abdominal aorta is normal in course and caliber noting moderate atheroscle rotic calcification. Bowel: There is mild to moderate colonic fecal retention. No bowel obstruction is seen. The appendix is well-visualized and normal. Peritoneum: There is no intraperitoneal free air or abdominal ascites. Lymphadenopathy: None. Pelvic viscera: Evaluation of the pelvis is degraded by streak artifact from a left hip arthroplasty. The bladder is distended but otherwise normal in appearance. The uterus and adnexa are normal as vis ualized. Skeletal structures: The skeletal structures are osteopenic. Postsurgical and spondylotic change is n oted in the lumbar spine. No lytic or blastic lesions are seen. A left hip arthroplasty is in place. IMPRESSION: 1. No acute infectious or inflammatory findings are identified in the abdomen or pelvis. 2. Emphysema and trace pleural effusions. 3. Bilateral nephrolithiasis. 4. Additional findings as above. ACT 112: Negative or not required by law. Electronically signed by: Issac Aceves M.D. 05/14/2025 10:10 AM
--- NOTE | 2025-05-14 12:01 | History & Physical Report ---
Date of Service May 14, 2025 Assessment & Plan (1) Left hip pain: Plan: Assessment: 1. Refractory left hip pain. Unknown etiology. Status post left total hip arthroplasty remotely. CT is negative for acute injury. Hardware is in place. Patient received oral oxycodone in the ER. Could not ambulate to go home we were called with ambulatory dysfunction for admission. We have consulted orthopedics as discussed above Dr. Vergara we informed his office and they want for him in the consult. Patient is due to have a right total hip arthroplasty in 2 weeks with [facility] orthopedics. I suspect she has left hip discomfort due to overuse due to favoring this left hip due to her right hip pain which she is again due for a hip replacement. 2. Osteoarthritis. As discussed above status post left total hip arthroplasty due for right total hip arthroplasty later this month. 3. History of adrenal insufficiency. She received a stress dose dose of hydrocortisone in the ER. There was no evidence of adrenal crisis at all. Will restart her oral hydrocortisone dose tomorrow. 4. Chronic pain with chronic narcotic dependency due to her osteoarthritis and fibromyalgia. 5. History of MGUS. Follows as an outpatient. 6. History of systemic lupus erythematosus follows as an outpatient. 7. ADHD. 8. COPD without acute exacerbation. 9. Anxiety. 10. GERD. Plan: As discussed above. Will continue to manage the patient's chronic medical issues while in the hospital. For her acute hip pain with consulted orthopedics will await further input from them. Any further imaging, such as MRI, will defer to orthopedics after their evaluation. Observation status for now given the ambulatory dysfunction. With normal imaging. Please refer to orders for further planning. History of Present Illness Chief Complaint: Left hip pain Primary Care Provider: Jairo Escobar MD This is a 59-year-old female who is due for right total hip arthroplasty within the next couple weeks with [facility] orthopedics. She has been experiencing increasing left hip pain. She was in the ER last week and left without being seen due to the length of her weight. She returns today with ongoing severe left hip pain impeding her ability to ambulate efficiently. In the ER she had plain films of the left hip as well as a CT of the abdomen pelvis all of which do not show any acute injury or explanation for her increased pain. Specifically the hardware in the left hip is in place and intact. Course in the ER the patient received oral oxycodone. She also received hydrocortisone IV 100 mg due to the fact that she missed her oral hydrocortisone today and has adrenal insufficiency. However there was no evidence at all vital briggs or clinically of any type of adrenal crisis. We are called admit the patient for ambulatory dysfunction with refractory left hip pain. We have placed a consult for orthopedics we spoke with Dr. Vergara orthopedic on-call office staff and they will inform him of the consult. Allergies Allergy/AdvReac Type Severity Reaction Status Date / Time cefazolin Allergy Unknown Itching Verified 05/04/25 14:46 vancomycin AdvReac Severe Red Man Verified 05/04/25 14:46 Syndrome belimumab AdvReac Unknown Nausea/Vomi Verified 05/04/25 14:46 ting Penicillins AdvReac Unknown Syncope as Verified 05/04/25 14:46 a child sorbitan esters AdvReac Unknown Nausea/Vomi Verified 05/04/25 14:46 ting Home Medications Medication Instructions Recorded Confirmed Type aspirin 81 mg tablet,delayed 81 mg PO QAM 07/27/18 05/14/25 History release folic acid 1 mg tablet 1 mg PO QAM 07/27/18 05/14/25 History polyethylene glycol 3350 17 17 g PO HS 07/27/18 05/14/25 History gram/dose oral powder (Miralax) clotrimazole 1 % topical cream 1 applic topical UD PRN Rash/Lupus 03/21/24 05/14/25 History clotrimazole 10 mg fawad 10 mg mucous membrane UD PRN Thrush 03/21/24 05/14/25 History oxycodone 5 mg tablet 5 mg PO Q6H PRN pain #30 tabs 05/08/24 05/14/25 Rx acetaminophen 325 mg tablet 325 mg PO UD PRN Pain 08/01/24 05/14/25 History (Tylenol) ibuprofen 200 mg tablet 200 mg PO UD PRN Pain 08/01/24 05/14/25 History amitriptyline 10 mg tablet 20 mg (2 x 10 mg) PO HS #180 tabs 09/12/24 05/14/25 Rx triamcinolone acetonide 0.1 % 1 applic topical UD PRN Rash 11/02/24 05/14/25 History lotion cholecalciferol (vitamin D3) 1,250 1,250 mcg PO Q7D #14 caps 11/13/24 05/14/25 Rx mcg (50,000 unit) capsule fluoxetine 20 mg tablet 40 mg (2 x 20 mg) PO QAM #180 tabs 12/11/24 05/14/25 Rx potassium chloride 20 mEq 20 meq PO BID #120 tabs 12/18/24 05/14/25 Rx tablet,extended release walker (Ultra-Light Rollator misc) #1 ea 02/09/25 05/14/25 Rx lorazepam 0.5 mg tablet (Ativan) 0.5 mg PO BID PRN Anxiety #60 tabs 03/26/25 05/14/25 Rx furosemide 20 mg tablet 20 mg PO UD PRN ankle swelling 04/09/25 05/14/25 History gabapentin 100 mg capsule 100 mg PO TID 04/09/25 05/14/25 History gabapentin 800 mg tablet 800 mg PO TID 04/09/25 05/14/25 History albuterol sulfate 1.25 mg/3 mL 1.25 mg inhalation UD PRN hx 04/20/25 05/14/25 History solution for nebulization pneumonia albuterol sulfate 90 mcg/actuation 2 puffs inhalation UD PRN hx 04/20/25 05/14/25 History aerosol inhaler pneumonia aripiprazole 2 mg tablet (Abilify) 2 mg PO QAM 04/20/25 05/14/25 History clobetasol 0.05 % topical cream 1 applic topical UD PRN Skin 04/20/25 05/14/25 History Irritation hydrochlorothiazide 25 mg tablet 25 mg PO UD PRN Lower extremity 04/20/25 05/14/25 History swelling hydrocortisone 2.5 % topical cream 1 applic VA UD PRN hemorrhoids 04/20/25 05/14/25 History with perineal applicator (Anusol-HC) hydroxychloroquine 200 mg tablet 250 mg PO QAM 04/20/25 05/14/25 History levothyroxine 75 mcg tablet 75 mcg PO 6XWK 04/20/25 05/14/25 History nystatin 100,000 unit/mL oral 5 ml PO UD PRN thrush 04/20/25 05/14/25 History suspension omeprazole 20 mg capsule,delayed 20 mg PO UD PRN Acid Reflux 04/20/25 05/14/25 History release zolpidem 10 mg tablet 10 mg PO HS Insomnia 04/20/25 05/14/25 History celecoxib 100 mg capsule (Celebrex) 100 mg PO DAILY PRN Pain 04/25/25 05/14/25 History hydrocortisone 10 mg tablet 30 mg (3 x 10 mg) PO DAILY 90 days 05/01/25 05/14/25 Rx #270 tabs Past Med/Surg History Problem List (Updated 05/14/25 @ 11:58 by Liam Pedraza, PhD, DO) Left hip pain Secondary adrenal insufficiency Lumbar radiculopathy Other cervical disc degeneration at C5-C6 level Neck pain Carlos's thyroiditis Swelling of lower extremity Vitamin D deficiency SIADH (syndrome of inappropriate ADH production) 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 Prediabetes Fatigue Peripheral neuropathy Status post left hip replacement (~04/2024) Raynaud's disease Monoclonal gammopathy of undetermined significance Anticardiolipin antibody syndrome Reason for baby ASA per patient Chronic venous insufficiency Greater trochanteric bursitis of right hip (Acute) Hypertension (Chronic) SLE (systemic lupus erythematosus) Hypothyroid Sjogrens syndrome Sciatica Hyperlipidemia COPD (chronic obstructive pulmonary disease) Interstitial cystitis Cervical radiculopathy ADHD Fibromyalgia Depression Anxiety Medical History (Updated 05/14/25 @ 11:58 by Liam Pedraza, PhD, DO) Toenail fungus chronic fungal issue both big toes, denies change to baseline "stays the same". Pt instructed to notify surgeon of this information. Pt voices understanding. pre op edu rev. History of depression situational Sciatica Interstitial cystitis controlled at current Fibromyalgia History of hyperlipidemia no medication for past 10 yrs per pt History of hypertension no medication for past 10 yrs per pt Raynaud's disease Sjogren's syndrome SIADH (syndrome of inappropriate ADH production) History of prediabetes not current per pt. Peripheral neuropathy MGUS (monoclonal gammopathy of unknown significance) Hx of Carlos thyroiditis Chronic venous insufficiency Antiphospholipid antibody syndrome reason for aspirin use Hypoxia hx, w/pneumonia "in the past," also occurs with lupus flares or illness Paroxysmal supraventricular tachycardia s/p ablation Carotid arterial disease [facility] [place] cardio records from 2021 note, "She had a carotid ultrasound many years ago and it did not show any serious disease" Hx MRSA infection (~2020) 2020 - while visiting hospital, was acquired > completed tx, no issues since IBS (irritable bowel syndrome) Hx of migraines Arachnoiditis d/t failed lumbar fusion ADHD no medication for Thoracic ascending aortic aneurysm [facility] [place] Vascular surgery monitoring Chest CT 12/2023: There is mild aneurysmal dilatation of the ascending thoracic aorta which measures up to 4.2 cm in diameter. SLE (systemic lupus erythematosus) Dr Duarte, [facility] rheumatology COPD (chronic obstructive pulmonary disease) inh and neb prn > very rare use pat call 04/20/25 - ? official dx, pt reports entry was placed around time she had bronchitis (yrs ago), had hx eval with pulmonary (2023 or 2024 ) and pt was told her lungs are fine. Anxiety Osteoarthritis Chronic back pain Kidney stones "still present" - no problems known at current; haven't moved in yrs per pt. Chronic constipation GERD (gastroesophageal reflux disease) controlled, stable per pt Anemia on occ - not known to be current problem. Surgical History History of total left hip replacement 04/2024, anterior History of surgery on arm Right arm mass excision (10/23/2021): LMA#4 at [facility] S/P ORIF (open reduction internal fixation) fracture Right Humerus 2018 d/t fall on ice > hardware intact History of section History of removal of cyst Eyelid History of laparoscopy "Checking for endometriosis" History of dilatation and curettage History of hand surgery right hand Status post wrist surgery right wrist pin in place History of laminectomy x2, 1998 and ~2004 History of lumbar spinal fusion ~2015, L5-S1 History of colonoscopy (2019) History of esophagogastroduodenoscopy (EGD) History of tooth extraction all teeth History of tonsillectomy and adenoidectomy History of neck surgery left lymph node removal d/t englargement (benign) History of endoscopic sinus surgery History of cardiac radiofrequency ablation for SVT (2009), [facility]; f/u [facility] annually Family History Mother Family hx colonic polyps Father Myocardial infarction Grandmother (Maternal) No problems noted. Grandmother (Paternal) Myocardial infarction Other No family history of adverse response to anesthesia Denies family history of Ovarian cancer Prostate cancer Breast cancer Colorectal cancer Social History Smoking Status: Never smoker Tobacco Type: Cigarettes Age Started Using Tobacco: 12; Age Quit Using Tobacco: 50; packs per day: 1; Second Hand Exposure: Yes (hx growing up); Do You Dip or Chew Tobacco: No; Hx Alcohol Use: No Hx Substance Use: No Preferred Language: Nepalese Communication Ability: Effective Property Master Required: No Beliefs That Will Affect Care: Congregational Congregational Beliefs: Orthodox marital status: Current Living Situation: Family and Other Current Living Situation Comment: ex and son current occupational status: employed and unemployed Feels Safe at Home: Yes Childhood Exposure to Second-Hand Smoke: Yes Diet: regular Dental Care, Regularly: No Physical Activity Frequency: 3-4 Times per Week Physical Activity Frequency Comment: crunches, stretching, weights Seatbelt Use: always Sunscreen Use: Yes Assistive Devices: Denture - Upper, Denture - Lower and Other Review of Systems Review of Systems: A 10 point review of system was obtained and unless otherwise stated here or in history of present illness are negative and noncontributory to chief complaint. Physical Exam Physical Exam: In General: In general 59-year-old female who is alert and oriented x 3, exam. She does not appear to be in a significant amount of distress while seated in the bed. She interacts appropriately and pleasantly. HEENT: Normocephalic atraumatic pupils are equal round and reactive to light bilaterally. No scleral icterus no conjunctival injection external auditory canals are patent septum is in the midline nose is without discharge oral mucosa is pink and moist without lesion. NECK: Supple no rigidity no lymphadenopathy no thyromegaly no carotid bruits no JVD no masses. HEART: Regular rate and rhythm I do not appreciate any ectopy or rub. No murmur. LUNGS: Clear to auscultation bilaterally and anteriorly with no evidence of adventitious sounds/wheezes rales or rhonchi. ABDOMEN: Soft nontender, no rebound, no peritoneal signs, positive bowel sounds, no appreciable organomegaly. EXTREMITIES: Intact, no peripheral cyanosis, clubbing or edema. Strength is 5 out of 5 in extremities x4, no pathological reflexes. NEUROLOGICAL: Cranial nerves II through XII are grossly intact with no focal deficit elicited upon examination. Results & Data Results & Data Vital Signs (Past 12 Hours) Vital Signs Temp Pulse Pulse Resp BP BP Pulse Ox 05/14/25 10:00 53 L 16 154/95 H 96 05/14/25 08:09 57 L 16 178/95 H 100 05/14/25 06:20 36.3 C L 65 18 179/94 H 99 O2 Del Method 05/14/25 10:00 Room Air 05/14/25 08:09 Room Air 05/14/25 06:20 Room Air Code Status & VTE Plan Code Status Full code. I personally discussed with patient. VTE Prophylaxis Plan VTE Prophylaxis will be ordered: Yes PG Care Time/CCT Total # of Minutes Spent Total Time Spent with Patient: Total time spent is greater than 50% in coordination of care (as documented) at patient's floor/unit and/or counseling patient: Coding Level of Care Code 13009 INT INP/OBS CARE 2/55MIN Diagnoses Left hip pain M25.552
[2025-05-14] MEDS ORDERED: ACETAMINOPHEN 325 MG TAB PO PRN (13:46)
[2025-05-14] MEDS ORDERED: CLOBETASOL PROPIONATE 0.05% CREAM 15 GM TUBE TOP PRN (13:46)
[2025-05-14] MEDS ORDERED: hydroCHLOROthiazide 25 MG TAB PO PRN (13:46)
[2025-05-14] MEDS ORDERED: LORazepam 0.5 MG TAB PO PRN (13:46)
[2025-05-14] MEDS ORDERED: NON-FORMULARY MEDICATION (Albuterol Sulfate 1.25 mg/3 mL solution for nebulization) INH PRN (13:46)
[2025-05-14] MEDS ORDERED: ALBUTEROL HFA 8 GM INHALER INH PRN (13:46)
--- NOTE | 2025-05-14 14:58 | Orthopedic Consultation ---
Date of Service May 14, 2025 Assessment & Plan (1) Left hip pain: * Case/imaging reviewed and discussed with Dr Vergara * Recommend pain control and ambulate with PT. * Disposition: TBD * Daily treatment: Physical Therapy/ Occupational Therapy per protocol * Weight bearing status: as tolerated * Pain control * Remainder care per primary team * Follow-up outpatient with Dr. Aguirre - R RYAN scheduled 05/28/25. (2) Status post left hip replacement: History of Present Illness Reason for Consultation: .Left hip pain Requesting Physician: . Attending Physician: Liam Pedraza, PhD, DO Patient is a 59 y/o female with left hip pain. PMH including lumbar radiculopathy, SIADH, Carlos's thyroiditis, peripheral neuropathy, raynaud's disease, systemic lupus erythematosus, sjorgens syndrome, sciatica, hyperlipidemia, COPD, fibromyalgia, alf use of systemic steroid and opioid pain medications, and left total hip arthroplasty -04/2024. Presents to hospital with left hip pain. Pt is actually scheduled in 2 weeks for right RYAN with Dr. Aguirre. Current workup including x-ray and CT of hip and pelvis. Orthopedics consulted for management recommendations. At time of exam patient was sitting on stretchers with her knees to her chest watching TV. Pt extended her legs to lay them out on the stretcher. Pt states since last week she has had excruciating pain in her left hip but only with weight bearing. Pt notes she has not been able to stand up straight. Pt notes she has been ambulating with a walker but has been doing so prior to this due to pain in her right hip which she is scheduled to have replaced with Dr. Aguirre. Pt notes she is on chronic oxycodone for a "fail back surgery" and "hope this isnt coming from that". Pt notes she has no pain in that hip to move it but is sharp shooting when she stands. Pt notes because of that she has mostly just stayed in bed. Allergies Allergy/AdvReac Type Severity Reaction Status Date / Time cefazolin Allergy Unknown Itching Verified 05/04/25 14:46 vancomycin AdvReac Severe Red Man Verified 05/04/25 14:46 Syndrome belimumab AdvReac Unknown Nausea/Vomi Verified 05/04/25 14:46 ting Penicillins AdvReac Unknown Syncope as Verified 05/04/25 14:46 a child sorbitan esters AdvReac Unknown Nausea/Vomi Verified 05/04/25 14:46 ting Home Medications Medication Instructions Recorded Confirmed Type aspirin 81 mg tablet,delayed 81 mg PO QAM 07/27/18 05/14/25 History release folic acid 1 mg tablet 1 mg PO QAM 07/27/18 05/14/25 History polyethylene glycol 3350 17 17 g PO HS 07/27/18 05/14/25 History gram/dose oral powder (Miralax) clotrimazole 1 % topical cream 1 applic topical UD PRN Rash/Lupus 03/21/24 05/14/25 History clotrimazole 10 mg fawad 10 mg mucous membrane UD PRN Thrush 03/21/24 05/14/25 History oxycodone 5 mg tablet 5 mg PO Q6H PRN pain #30 tabs 05/08/24 05/14/25 Rx acetaminophen 325 mg tablet 325 mg PO UD PRN Pain 08/01/24 05/14/25 History (Tylenol) ibuprofen 200 mg tablet 200 mg PO UD PRN Pain 08/01/24 05/14/25 History amitriptyline 10 mg tablet 20 mg (2 x 10 mg) PO HS #180 tabs 09/12/24 05/14/25 Rx triamcinolone acetonide 0.1 % 1 applic topical UD PRN Rash 11/02/24 05/14/25 History lotion cholecalciferol (vitamin D3) 1,250 1,250 mcg PO Q7D #14 caps 11/13/24 05/14/25 Rx mcg (50,000 unit) capsule fluoxetine 20 mg tablet 40 mg (2 x 20 mg) PO QAM #180 tabs 12/11/24 05/14/25 Rx potassium chloride 20 mEq 20 meq PO BID #120 tabs 12/18/24 05/14/25 Rx tablet,extended release walker (Ultra-Light Rollator misc) #1 ea 02/09/25 05/14/25 Rx lorazepam 0.5 mg tablet (Ativan) 0.5 mg PO BID PRN Anxiety #60 tabs 03/26/25 05/14/25 Rx furosemide 20 mg tablet 20 mg PO UD PRN ankle swelling 04/09/25 05/14/25 History gabapentin 100 mg capsule 100 mg PO TID 04/09/25 05/14/25 History gabapentin 800 mg tablet 800 mg PO TID 04/09/25 05/14/25 History albuterol sulfate 1.25 mg/3 mL 1.25 mg inhalation UD PRN hx 04/20/25 05/14/25 H istory solution for nebulization pneumonia albuterol sulfate 90 mcg/actuation 2 puffs inhalation UD PRN hx 04/20/25 05/14/25 History aerosol inhaler pneumonia aripiprazole 2 mg tablet (Abilify) 2 mg PO QAM 04/20/25 05/14/25 History clobetasol 0.05 % topical cream 1 applic topical UD PRN Skin 04/20/25 05/14/25 History Irritation hydrochlorothiazide 25 mg tablet 25 mg PO UD PRN Lower extremity 04/20/25 05/14/25 History swelling hydrocortisone 2.5 % topical cream 1 applic NH UD PRN hemorrhoids 04/20/25 05/14/25 History with perineal applicator (Anusol-HC) hydroxychloroquine 200 mg tablet 250 mg PO QAM 04/20/25 05/14/25 History levothyroxine 75 mcg tablet 75 mcg PO 6XWK 04/20/25 05/14/25 History nystatin 100,000 unit/mL oral 5 ml PO UD PRN thrush 04/20/25 05/14/25 History suspension omeprazole 20 mg capsule,delayed 20 mg PO UD PRN Acid Reflux 04/20/25 05/14/25 History release zolpidem 10 mg tablet 10 mg PO HS Insomnia 04/20/25 05/14/25 History celecoxib 100 mg capsule (Celebrex) 100 mg PO DAILY PRN Pain 04/25/25 05/14/25 History hydrocortisone 10 mg tablet 30 mg (3 x 10 mg) PO DAILY 90 days 05/01/25 05/14/25 Rx #270 tabs oxycodone 5 mg tablet 5 mg PO Q6H PRN pain, severe #10 05/15/25 Rx tabs Past Med/Surg History Problem List (Updated 05/14/25 @ 22:45 by Harsh Reina MD) Chronic adrenal insufficiency (Acute) Chronic right hip pain (Acute) Acute pain of left hip (Acute) Ambulatory dysfunction (Acute) Left hip pain Secondary adrenal insufficiency Lumbar radiculopathy Other cervical disc degeneration at C5-C6 level Neck pain Carlos's thyroiditis Swelling of lower extremity Vitamin D deficiency SIADH (syndrome of inappropriate ADH production) detention (current) use of systemic steroids Prediabetes Fatigue Peripheral neuropathy Status post left hip replacement (Acute ~04/2024) Raynaud's disease 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 Pt instructed to notify surgeon of this information. Pt voices understanding. pre op edu rev. History of depression situational Sciatica Interstitial cystitis controlled at current Fibromyalgia History of hyperlipidemia no medication for past 10 yrs per pt History of hypertension no medication for past 10 yrs per pt Raynaud's disease Sjogren's syndrome SIADH (syndrome of inappropriate ADH production) History of prediabetes not current per pt. Peripheral neuropathy MGUS (monoclonal gammopathy of unknown significance) Hx of Carlos thyroiditis Chronic venous insufficiency Antiphospholipid antibody syndrome reason for aspirin use Hypoxia hx, w/pneumonia "in the past," also occurs with lupus flares or illness Paroxysmal supraventricular tachycardia s/p ablation Carotid arterial disease [facility] cardio records from 2021 note, "She had a carotid ultrasound many years ago and it did not show any serious disease" Hx MRSA infection (~2020) 2020 - while visiting hospital, was acquired > completed tx, no issues since IBS (irritable bowel syndrome) Hx of migraines Arachnoiditis d/t failed lumbar fusion ADHD no medication for Thoracic ascending aortic aneurysm [facility] Vascular surgery monitoring Chest CT 12/2023: There is mild aneurysmal dilatation of the ascending thoracic aorta which measures up to 4.2 cm in diameter. SLE (systemic lupus erythematosus) Dr Duarte, s rheumatology COPD (chronic obstructive pulmonary disease) inh and neb prn > very rare use pat call 04/20/25 - ? official dx, pt reports entry was placed around time she had bronchitis (yrs ago), had hx eval with pulmonary (2023 or 2024 ) and pt was told her lungs are fine. Anxiety Osteoarthritis Chronic back pain Kidney stones "still present" - no problems known at current; haven't moved in yrs per pt. Chronic constipation GERD (gastroesophageal reflux disease) controlled, stable per pt Anemia on occ - not known to be current problem. Surgical History History of total left hip replacement 04/2024, anterior History of surgery on arm Right arm mass excision (10/23/2021): LMA#4 at [facility] S/P ORIF (open reduction internal fixation) fracture Right Humerus 2018 d/t fall on ice > hardware intact History of section History of removal of cyst Eyelid History of laparoscopy "Checking for endometriosis" History of dilatation and curettage History of hand surgery right hand Status post wrist surgery right wrist pin in place History of laminectomy x2, 1998 and ~2004 History of lumbar spinal fusion ~2015, L5-S1 History of colonoscopy (2018) History of esophagogastroduodenoscopy (EGD) History of tooth extraction all teeth History of tonsillectomy and adenoidectomy History of neck surgery left lymph node removal d/t englargement (benign) History of endoscopic sinus surgery History of cardiac radiofrequency ablation for SVT (2009), [place]; f/u [facility] Family History Mother Family hx colonic polyps Father Myocardial infarction Grandmother (Maternal) No problems noted. Grandmother (Paternal) Myocardial infarction Other No family history of adverse response to anesthesia Denies family history of Ovarian cancer Prostate cancer Breast cancer Colorectal cancer Social History Smoking Status: Former smoker Tobacco Type: Cigarettes Age Started Using Tobacco: 12; Age Quit Using Tobacco: 50; packs per day: 1; Second Hand Exposure: No; Do You Dip or Chew Tobacco: No; Hx Alcohol Use: No Hx Substance Use: No Preferred Language: French Communication Ability: Effective Director External Communications Required: No Beliefs That Will Affect Care: Mormonism Mormonism Beliefs: Moravian marital status: Current Living Situation: Family and Other Current Living Situation Comment: One story house current occupational status: employed and unemployed Feels Safe at Home: Yes Childhood Exposure to Second-Hand Smoke: Yes Diet: regular Dental Care, Regularly: No Physical Activity Frequency: 3-4 Times per Week Physical Activity Frequency Comment: crunches, stretching, weights Seatbelt Use: always Sunscreen Use: Yes Assistive Devices: Walker Review of Systems All systems reviewed & are unremarkable except as noted in HPI & below. Physical Exam * General: Alert and oriented, no acute distress * Constitutional: well-developed, well-nourished. * Respiratory: Normal respiratory effort, no distress * Gastrointestinal: No tenderness to palpation, no rigidity or guarding. * Skin: No rash or lesion. * Neurologic: Grossly normal * Musculoskeletal: Left hip can actively flex and extend without difficulty. PROM good internal and external rotation with no limitation. No irritability with log rolling of leg. Right hip with some limited external rotation due to stiffness. No swelling or edema is noted. Hips are non tender to palpation. Otherwise neurovascualrly intact. Results & Data Results & Data Laboratory Results Laboratory Results - last 24 hr 05/14/25 07:35 WBC 6.98 RBC 4.12 L Hgb 11.8 L Hct 36.8 L MCV 89.3 MCH 28.6 MCHC 32.1 RDW Std Deviation 43.6 RDW Coeff of Zach 13.4 Plt Count 229 MPV 9.9 Immature Gran % (Auto) 0.3 Neut % (Auto) 52.6 Lymph % (Auto) 31.2 [place] % (Auto) 12.0 Eos % (Auto) 3.2 Baso % (Auto) 0.7 Neut # (Auto) 3.67 Lymph # (Auto) 2.18 [place] # (Auto) 0.84 H Eos # (Auto) 0.22 Baso # (Auto) 0.05 Immature Gran # (Auto) 0.02 D-Dimer 530 H* Sodium 135 L Potassium 3.8 Chloride 100 Carbon Dioxide 24 Anion Gap 11 BUN 14 Creatinine 1.00 Est Cr Clr Drug Dosing 63.3 eGFR 64.90 BUN/Creatinine Ratio 14.0 Glucose 70 Calcium 9.2 Phosphorus 4.2 Magnesium 1.9 Total Bilirubin 0.4 AST 24 ALT 17 Alkaline Phosphatase 83 Total Creatine Kinase 110 Total Protein 7.7 Albumin 3.9 Globulin 3.8 Albumin/Globulin Ratio 1.0 Lipase 66 TSH 2.289 Random Cortisol 1.68 Urine Color Yellow Urine Appearance Clear Urine pH 7.0 Ur Specific Cornish 1.008 Urine Protein Negative Urine Glucose (UA) Negative Urine Ketones Negative Urine Blood Negative Urine Nitrite Negative Urine Bilirubin Negative Urine Urobilinogen Negative Ur Leukocyte Esterase Negative Urine Comment . Diagnostic Findings Hip/Pelvis X-Ray 05/14/25 06:53 EXAM: XR hip LT 2V w pelvis CLINICAL HISTORY: pain, ?dislocation. TECHNIQUE: X-ray images of the left hip joints in AP and lateral projections. COMPARISON: Comparison with the previous MRI study dated 01/26/2025. The current study shows: FINDINGS: Hip Joints: Osteopenia is noted. There is post-operative status of left hip total arthroplasty with an intact device, demonstrating good bone contact surface. The acetabular cap is well aligned with fixation by screw. There is no sign of device breakage, loosening, or infectious changes on the basis of this X-ray. There are arthritic changes of both sacroiliac joints, with faint subarticular sclerosis. Symphysis Pubis: The symphysis pubis is normal and intact. There is no evidence of separation or widening. Soft Tissues: The visualized soft tissues are normal and unremarkable. There is no soft tissue swelling, calcification, or masses. Additional Findings: No other significant abnormalities are noted. There is post-operative status of L5 and S1 vertebral fixation by mirela and screws, with L5/S1 disc cage insertion noted. IMPRESSION: 1. There is no evidence of acute fracture or dislocation. 2. Osteopenia is present. 3. Post-operative status of left hip total arthroplasty with intact device. 4. The acetabular cap is well aligned with fixation by screw. 5. There is no sign of device breakage, loosening, or infectious changes on the basis of this X-ray. 6. There are bilateral sacroiliac degenerative changes. 7. Post-operative status of lower lumbar spine fixation. Disclaimer: A subtle bone abnormality or fracture may not be readily apparent on X-rays, thus clinical correlation and further imaging including follow-up CT, MRI, or follow-up X-rays are advised as needed. Electronically signed by Dima Bassett 05-14-2025 08:17 AM Abdomen/Pelvis CT 05/14/25 07:17 CT SCAN OF THE ABDOMEN AND PELVIS WITH IV CONTRAST CLINICAL HISTORY: Left hip/groin pain. Generalized abdominal pain. COMPARISON STUDY: No priors. TECHNIQUE: Following the IV administration of 94 cc of Optiray 320, CT scan of the abdomen and pelvis is performed from the lung bases to the proximal femora. Images are reviewed in the axial, sagittal, and coronal planes. IV contrast was administered without complication. A dose lowering technique was utilized adhering to the principles of ALARA. CT DOSE: 952.51 mGy.cm FINDINGS: Lung bases: The heart is top normal in size and without pericardial effusion. Emphysematous change is noted the lung bases. There are trace pleural effusions. No airspace consolidation is seen typical for pneumonia. Liver: The contrast-enhanced liver is normal in size, contour, and attenuation. There is no intrahepatic biliary ductal dilatation. The hepatic veins and portal veins are patent. Gallbladder: Unremarkable. Spleen: Normal in size and attenuation. Pancreas: Unremarkable. Adrenal glands: Unremarkable. Kidneys: The contrast enhanced kidneys are normal in size and without hydronephrosis. The kidneys enhance symmetrically. There is a 5 mm nonobstructing left renal calculus. A 2 mm nonobstructing calculus is seen on the right. No ureteral stone is identified. There is a 1 cm left renal cyst. Additional subcentimeter cortical hypodensities also likely represent cysts but are too small for definitive characterization. Abdominal vasculature: The abdominal aorta is normal in course and caliber noting moderate atherosclerotic calcification. Bowel: There is mild to moderate colonic fecal retention. No bowel obstruction is seen. The appendix is well-visualized and normal. Peritoneum: There is no intraperitoneal free air or abdominal ascites. Lymphadenopathy: None. Pelvic viscera: Evaluation of the pelvis is degraded by streak artifact from a left hip arthroplasty. The bladder is distended but otherwise normal in appearance. The uterus and adnexa are normal as visualized. Skeletal structures: The skeletal structures are osteopenic. Postsurgical and spondylotic change is noted in the lumbar spine. No lytic or blastic lesions are seen. A left hip arthroplasty is in place. IMPRESSION: 1. No acute infectious or inflammatory findings are identified in the abdomen or pelvis. 2. Emphysema and trace pleural effusions. 3. Bilateral nephrolithiasis. 4. Additional findings as above. ACT 112: Negative or not required by law. Electronically signed by: Issac Aceves M.D. 05/14/2025 10:10 AM . PG Care Time/CCT Total # of Minutes Spent Total Time Spent with Patient: Total time spent is greater than 50% in coordination of care (as documented) at patient's floor/unit and/or counseling patient: Coding Level of Care Code 59494 IN/OBS CONSULT LVL 3,45M Diagnoses Left hip pain M25.552 Status post left hip replacement Z96.642
[2025-05-14] MEDS: GABAPENTIN 100 MG CAP PO SCH (15:20)
[2025-05-14] MEDS: GABAPENTIN 800 MG TAB PO SCH (15:20)
[2025-05-14] MEDS: CHOLECALCIFEROL 125 MCG (5,000 UNITS) TAB PO SCH (17:54)
[2025-05-14] MEDS: AMITRIPTYLINE HCL 10 MG TAB PO SCH (21:47)
[2025-05-14] MEDS: POTASSIUM CHLORIDE CRTAB 20 MEQ TABCR PO SCH (21:48)
[2025-05-14] MEDS: ZOLPIDEM TARTRATE 5 MG TAB PO SCH (21:48)
[2025-05-15] MEDS: LEVOTHYROXINE SODIUM 75 MCG TABLET PO SCH (05:59)
[2025-05-15] MEDS: ACETAMINOPHEN 500 MG TAB PO PRN (06:34)
[2025-05-15] MEDS: ASPIRIN 81 MG ECTAB PO SCH (09:23)
[2025-05-15] MEDS: HYDROCORTISONE 10 MG TAB PO SCH (09:23)
[2025-05-15] MEDS: FOLIC ACID 1 MG TAB PO SCH (09:23)
[2025-05-15] MEDS: HYDROXYCHLOROQUINE SULFATE 200 MG TAB PO SCH (09:24)
[2025-05-15 12:06] VITALS: BP 151/89; PULSE 58; RESP 16; TEMP 97.9; O2SAT 98
[2025-05-15] MEDS ORDERED: HYDROCORTISONE 10 MG TAB PO SCH (15:00)
--- NOTE | 2025-05-15 15:02 | Discharge Summary ---
"Discharge Summary Date of Service May 15, 2025 Principal Dx & Hospital Course #1 = Principal Diagnosis (1) Acute pain of left hip: (2) Ambulatory dysfunction: (3) Chronic right hip pain: Plan 59-year-old woman with past medical history of secondary adrenal insufficiency, lumbar radiculopathy, neck pain, Carlos's thyroiditis, vitamin D deficiency, SIADH, prediabetes, peripheral neuropathy, chronic venous insufficiency, hypertension, lupus, hypothyroidism, Sjogren syndrome, MGUS, hyperlipidemia, COPD, interstitial cystitis, cervical radiculopathy, ADHD, fibromyalgia, depression/anxiety. She presented with subacute severe left groin/hip pain resulting in ambulatory dysfunction. She was admitted for management of such. #Acute left hip pain - pain is isolated to weightbearing, no pain at rest. Suspect this is secondary to overcompensating from her ongoing right hip pain for which she is scheduled to have a right total hip arthroplasty later this month with Dr. Aguirre - Hip/pelvic x-ray revealed no evidence of acute fracture or dislocation. Postoperative status of left hip total arthroplasty with intact device, acetabular Well aligned with fixation by screw, no sign of device breakage, loosening, or infectious changes - CT A/P revealed no acute infectious or inflammatory findings in the abdomen or pelvis - Continues Tylenol for basic pain. Can use oxycodone 5 mg every 6 hours as needed for severe pain. Instructed patient not to drive or operate heavy machinery while taking oxycodone - Follow-up with orthopedics as scheduled #Adrenal insufficiencycontinue home oral hydrocortisone #Depression/anxietycontinue fluoxetine, amitriptyline, Abilify #Carlos's thyroiditis | hypothyroidismcontinue levothyroxine #Hypertensioncontinue Lasix, potassium chloride, aspirin #COPDcontinue home inhalers #Chronic paincontinue home Celebrex, gabapentin, ibuprofen, oxycodone Dispo: Discharged home 05/15 Notes For Next Care Provider Follow-up with orthopedics as scheduled Medication Changes From Visit Oxycodone 5 mg every 6 hours as needed for severe pain Admission HPI Per Admitting Provider This is a 59-year-old female who is due for right total hip arthroplasty within the next couple weeks with [facility] orthopedics. She has been experiencing increasing left hip pain. She was in the ER last week and left without being seen due to the length of her weight. She returns today with ongoing severe left hip pain impeding her ability to ambulate efficiently. In the ER she had plain films of the left hip as well as a CT of the abdomen pelvis all of which do not show any acute injury or explanation for her increased pain. Specifically the hardware in the left hip is in place and intact. Course in the ER the patient received oral oxycodone. She also received hydrocortisone IV 100 mg due to the fact that she missed her oral hydrocortisone today and has adrenal insufficiency. However there was no evidence at all vital briggs or clinically of any type of adrenal crisis. We are called admit the patient for ambulatory dysfunction with refractory left hip pain. We have placed a consult for orthopedics we spoke with Dr. Vergara orthopedic on-call office staff and they will inform him of the consult. Discharge Exam General: No acute distress, nondiaphoretic, well-developed, well-nourished. Skin: Warm, dry. No rashes or peripheral edema noted. Cardiac: Regular rate and rhythm without murmurs gallops or rubs. Pulm: Clear to auscultation bilaterally without wheezes, rales or rhonchi. Normal respiratory effort. 98% on room air. Abdominal: Soft, nontender, nondistended. Bowel sounds present. MSK: Normal strength and sensation in extremities bilaterally. Neuro: A&O x3. No focal neurological deficits. Discharge Plan Discharge Items Patient Disposition: Home - Self-Care Reason For Visit: HIP PAIN Discharge Diagnosis: Left hip pain Condition on Discharge: Fair Activity: Resume your previous activity Non-emergency contact: Primary Care Provider and Surgeon Call non-emergency contact if: you have any medication questions, your symptoms worsen and your pain is not controlled Follow-up/Referrals: Jairo Escobar MD [Primary Care Provider] - 05/23/25 11:00 am Stuart Aguirre DO [Physician] - (Follow-up as directed) Diet: Heart Healthy Addtl Attending Provider Instructions: Nargis, You were observed overnight in the hospital due to refractory left hip pain. You had a CT scan performed which is negative for an acute injury and your hardware remains in place properly. Your pain is likely from overcompensating due to your right hip pain. Fortunately, this should resolve after you have your right hip surgically addressed. Upon discharge from the hospital: * Take Tylenol as needed for basic pain. * Take oxycodone 5 mg every 6 hours as needed for severe pain. Do not drive or operate heavy machinery while taking oxycodone as it is a narcotic pain medication. * Continue your home medications as prescribed. * Follow-up with your orthopedic surgery team as scheduled. Please return to the hospital if you experience any of the following: Severe pain uncontrolled with medication, follow-up with injury, inability to ambulate, chest pain, difficulty breathing, passing out, confusion, or any other symptoms concerning for you. It was a pleasure taking care of you while you were in the hospital! Pending Studies at Discharge: No Stand-Alone Forms: My [facility], Smoking Cessation Medications and DC Order Prescriptions: New oxycodone 5 mg tablet 5 mg PO Q6H PRN (Reason: pain, severe) Qty: 10 0RF Continued acetaminophen [Tylenol] 325 mg tablet 325 mg PO UD PRN (Reason: Pain) ibuprofen 200 mg tablet 200 mg PO UD PRN (Reason: Pain) amitriptyline 10 mg tablet 20 mg PO HS Qty: 180 3RF cholecalciferol (vitamin D3) 1,250 mcg (50,000 unit) capsule 1,250 mcg PO Q7D Qty: 14 1RF Patient Comments: usually wednesday or wednesday Rx Instructions: Take one capsule by mouth once a week with the largest meal of the day. fluoxetine 20 mg tablet 40 mg PO QAM Qty: 180 1RF Hold Instructions: Home Medication placed on hold at Doctor's office potassium chloride 20 mEq tablet extended release 20 meq PO BID Qty: 120 2RF lorazepam [Ativan] 0.5 mg tablet 0.5 mg PO BID PRN (Reason: Anxiety) Qty: 60 0RF hydrocortisone 10 mg tablet 30 mg PO DAILY 90 Days Qty: 270 3RF Rx Instructions: TAKE 2 TABS (20MG) IN THE AM AND 1 TAB (10MG) 6-8 HRS LATER (DME) Ultra-[employer] [facility] See Rx Instructions .Route Qty: 1 0RF Rx Instructions: As directed furosemide 20 mg tablet 20 mg PO UD PRN (Reason: ankle swelling) Hold Instructions: Home Medication placed on hold at Doctor's office Patient Comments: don't really use gabapentin 800 mg tablet 800 mg PO TID gabapentin 100 mg capsule 100 mg PO TID aspirin 81 mg Tablet,Delayed Release (Dr/Ec) 81 mg PO QAM folic acid 1 mg Tablet 1 mg PO QAM polyethylene glycol 3350 [Miralax] 17 gram/dose Powder 17 g PO HS clotrimazole 10 mg fawad 10 mg mucous membrane UD PRN (Reason: Thrush) Patient Comments: not current problem clotrimazole 1 % cream 1 applic topical UD PRN (Reason: Rash/Lupus) oxycodone 5 mg tablet 5 mg PO Q6H PRN (Reason: pain) Qty: 30 0RF levothyroxine 75 mcg tablet 75 mcg PO 6XWK Patient Comments: don't take on mondays, take 6 days per week - morning hours. Rx Instructions: Take 1 tablet in AM 30-45 minutes before meal and other medications; only 6 days per week omeprazole 20 mg capsule,delayed release(DR/EC) 20 mg PO UD PRN (Reason: Acid Reflux) hydrochlorothiazide 25 mg tablet 25 mg PO UD PRN (Reason: Lower extremity swelling) Rx Instructions: Use every other day as needed with swelling. hydroxychloroquine 200 mg tablet 250 mg PO QAM zolpidem 10 mg tablet 10 mg PO HS Patient Comments: takes every night aripiprazole [Abilify] 2 mg tablet 2 mg PO QAM albuterol sulfate 1.25 mg/3 mL solution for nebulization 1.25 mg inhalation UD PRN (Reason: hx pneumonia) Patient Comments: have not used this in yrs albuterol sulfate 90 mcg/actuation HFA aerosol inhaler 2 puffs INH UD PRN (Reason: hx pneumonia) Patient Comments: don't usually need this nystatin 100,000 unit/mL suspension 5 ml PO UD PRN (Reason: thrush) Patient Comments: not a current problem Rx Instructions: swish and spit clobetasol 0.05 % cream 1 applic topical UD PRN (Reason: Skin Irritation) hydrocortisone [Anusol-HC] 2.5 % cream with perineal applicator 1 applic AL UD PRN (Reason: hemorrhoids) celecoxib [Celebrex] 100 mg capsule 100 mg PO DAILY PRN (Reason: Pain) triamcinolone acetonide 0.1 % lotion 1 applic topical UD PRN (Reason: Rash) Discharge Orders: Discharge Order (Routine); Ordered 05/15/25 Ordered By: Carol Martin Admission Data Admit Date/Time: 05/14/25 11:51 Attending Provider: Kayden Lauren Admit Provider: Liam Pedraza Primary Care Provider: Jairo Escobar Other Providers: Liam Pedraza; Stew Vergara Other Interventions: Discharge Summary Assessment (RN) Last Done: 05/15/25 13:46 Hospital Stay Data Consultations 05/14/25 11:40 ED Decision to Admit Stat 05/14/25 11:53 Consult Orthopedic Surgery Routine Diagnostic Imagining Performed Hip/Pelvis X-Ray 05/14/25 06:53 EXAM: XR hip LT 2V w pelvis CLINICAL HISTORY: pain, ?dislocation. TECHNIQUE: X-ray images of the left hip joints in AP and lateral projections. COMPARISON: Comparison with the previous MRI study dated 01/26/2025. The current study shows: FINDINGS: Hip Joints: Osteopenia is noted. There is post-operative status of left hip total arthroplasty with an intact device, demonstrating good bone contact surface. The acetabular cap is well aligned with fixation by screw. There is no sign of device breakage, loosening, or infectious changes on the basis of this X-ray. There are arthritic changes of both sacroiliac joints, with faint subarticular sclerosis. Symphysis Pubis: The symphysis pubis is normal and intact. There is no evidence of separation or widening. Soft Tissues: The visualized soft tissues are normal and unremarkable. There is no soft tissue swelling, calcification, or masses. Additional Findings: No other significant abnormalities are noted. There is post-operative status of L5 and S1 vertebral fixation by mirela and screws, with L5/S1 disc cage insertion noted. IMPRESSION: 1. There is no evidence of acute fracture or dislocation. 2. Osteopenia is present. 3. Post-operative status of left hip total arthroplasty with intact device. 4. The acetabular cap is well aligned with fixation by screw. 5. There is no sign of device breakage, loosening, or infectious changes on the basis of this X-ray. 6. There are bilateral sacroiliac degenerative changes. 7. Post-operative status of lower lumbar spine fixation. Disclaimer: A subtle bone abnormality or fracture may not be readily apparent on X-rays, thus clinical correlation and further imaging including follow-up CT, MRI, or follow-up X-rays are advised as needed. Electronically signed by Dima Bassett 05-14-2025 08:17 AM Abdomen/Pelvis CT 05/14/25 07:17 CT SCAN OF THE ABDOMEN AND PELVIS WITH IV CONTRAST CLINICAL HISTORY: Left hip/groin pain. Generalized abdominal pain. COMPARISON STUDY: No priors. TECHNIQUE: Following the IV administration of 94 cc of Optiray 320, CT scan of the abdomen and pelvis is performed from the lung bases to the proximal femora. Images are reviewed in the axial, sagittal, and coronal planes. IV contrast was administered without complication. A dose lowering technique was utilized adhering to the principles of ALARA. CT DOSE: 952.51 mGy.cm FINDINGS: Lung bases: The heart is top normal in size and without pericardial effusion. Emphysematous change is noted the lung bases. There are trace pleural effusions. No airspace consolidation is seen typical for pneumonia. Liver: The contrast-enhanced liver is normal in size, contour, and attenuation. There is no intrahepatic biliary ductal dilatation. The hepatic veins and portal veins are patent. Gallbladder: Unremarkable. Spleen: Normal in size and attenuation. Pancreas: Unremarkable. Adrenal glands: Unremarkable. Kidneys: The contrast enhanced kidneys are normal in size and without hydronephrosis. The kidneys enhance symmetrically. There is a 5 mm nonobstructing left renal calculus. A 2 mm nonobstructing calculus is seen on the right. No ureteral stone is identified. There is a 1 cm left renal cyst. Additional subcentimeter cortical hypodensities also likely represent cysts but are too small for definitive characterization. Abdominal vasculature: The abdominal aorta is normal in course and caliber noting moderate atherosclerotic calcification. Bowel: There is mild to moderate colonic fecal retention. No bowel obstruction is seen. The appendix is well-visualized and normal. Peritoneum: There is no intraperitoneal free air or abdominal ascites. Lymphadenopathy: None. Pelvic viscera: Evaluation of the pelvis is degraded by streak artifact from a left hip arthroplasty. The bladder is distended but otherwise normal in appearance. The uterus and adnexa are normal as visualized. Skeletal structures: The skeletal structures are osteopenic. Postsurgical and spondylotic change is noted in the lumbar spine. No lytic or blastic lesions are seen. A left hip arthroplasty is in place. IMPRESSION: 1. No acute infectious or inflammatory findings are identified in the abdomen or pelvis. 2. Emphysema and trace pleural effusions. 3. Bilateral nephrolithiasis. 4. Additional findings as above. ACT 112: Negative or not required by law. Electronically signed by: Issac Aceves M.D. 05/14/2025 10:10 AM Pending Results Patient Have Any Pending Studies at Discharge: No Discharge Instructions Given to Patient (Per Discharging Provider) Nargis, You were observed overnight in the hospital due to refractory left hip pain. You had a CT scan performed which is negative for an acute injury and your hardware remains in place properly. Your pain is likely from overcompensating due to your right hip pain. Fortunately, this should resolve after you have your right hip surgically addressed. Upon discharge from the hospital: * Take Tylenol as needed for basic pain. * Take oxycodone 5 mg every 6 hours as needed for severe pain. Do not drive or operate heavy machinery while taking oxycodone as it is a narcotic pain me dication. * Continue your home medications as prescribed. * Follow-up with your orthopedic surgery team as scheduled. Please return to the hospital if you experience any of the following: Severe pain uncontrolled with medication, follow-up with injury, inability to ambulate, chest pain, difficulty breathing, passing out, confusion, or any other symptoms concerning for you. It was a pleasure taking care of you while you were in the hospital! Supervising Physician Co-Signing Physician Notes chart reviewed, case d/w S Gross PAC, as above Total Time Total Time Spent Total Time Spent (In Minutes): Greater than 30 minutes spent completing this discharge process including direct patient care, medication reconciliation, documentation, review of labs and images, and coordination of care. Coding Level of Care Code 26389 INP/OBS DISCH >30 MIN Diagnoses Acute pain of left hip M25.552 Ambulatory dysfunction R26.2 Chronic right hip pain M25.551; G89.29"
== END 2025-05-15 14:21 | disposition home or self-care (01) ==
LOC: ED 06:15 → EDINP 06:15 → SUATTDRO 11:51 → 3N 13:47

== ENCOUNTER 2025-05-28 10:00 | Observation (INO) ==
--- NOTE | 2025-04-24 15:56 | PAT Medication Instructions ---
Medication Instructions Date of Service April 24, 2025 Home Medications Medication Instructions Recorded oxycodone 5 mg tablet 5 mg PO Q6H PRN pain #30 tabs 05/08/24 ondansetron HCl 4 mg tablet 4 mg PO Q8H PRN nausea and 07/31/24 vomiting #60 tabs amitriptyline 10 mg tablet 20 mg (2 x 10 mg) PO HS #180 tabs 09/12/24 cholecalciferol (vitamin D3) 1,250 1,250 mcg PO Q7D #14 caps 11/13/24 mcg (50,000 unit) capsule fluoxetine 20 mg tablet 40 mg (2 x 20 mg) PO QAM #180 tabs 12/11/24 potassium chloride 20 mEq 20 meq PO BID #120 tabs 12/18/24 tablet,extended release walker (Ultra-Light Rollator misc) #1 ea 02/09/25 lorazepam 0.5 mg tablet (Ativan) 0.5 mg PO BID PRN Anxiety #60 tabs 03/26/25 aspirin 81 mg tablet,delayed release 81 mg PO QAM folic acid 1 mg tablet 1 mg PO QAM polyethylene glycol 3350 17 gram/dose oral powder (Miralax) 17 g PO HS clotrimazole 1 % topical cream 1 applic topical UD PRN Rash/Lupus clotrimazole 10 mg fawad 10 mg mucous membrane UD PRN Thrush oxycodone 5 mg tablet 5 mg PO Q6H PRN pain ondansetron HCl 4 mg tablet 4 mg PO Q8H PRN nausea and vomiting acetaminophen 325 mg tablet (Tylenol) 325 mg PO UD PRN Pain ibuprofen 200 mg tablet 200 mg PO UD PRN Pain amitriptyline 10 mg tablet 20 mg (2 x 10 mg) PO HS triamcinolone acetonide 0.1 % lotion 1 applic topical UD PRN Rash cholecalciferol (vitamin D3) 1,250 mcg (50,000 unit) capsule 1,250 mcg PO Q7D fluoxetine 20 mg tablet 40 mg (2 x 20 mg) PO QAM25] potassium chloride 20 mEq tablet,extended release 20 meq PO BID lorazepam 0.5 mg tablet (Ativan) 0.5 mg PO BID PRN Anxiety furosemide 20 mg tablet 20 mg PO UD PRN ankle swelling gabapentin 100 mg capsule 100 mg PO TID gabapentin 800 mg tablet 800 mg PO TID albuterol sulfate 1.25 mg/3 mL solution for nebulization 1.25 mg inhalation UD PRN hx pneumonia albuterol sulfate 90 mcg/actuation aerosol inhaler 2 puffs inhalation UD PRN hx pneumonia aripiprazole 2 mg tablet (Abilify) 2 mg PO QAM celecoxib 100 mg capsule (Celebrex) 100 mg PO UD PRN Pain clobetasol 0.05 % topical cream 1 applic topical UD PRN Skin Irritation hydrochlorothiazide 25 mg tablet 25 mg PO UD PRN Lower extremity swelling hydrocortisone 2.5 % topical cream with perineal applicator (Anusol-HC) [address] UD PRN hemorrhoids hydroxychloroquine 200 mg tablet 250 mg PO QAM levothyroxine 75 mcg tablet 75 mcg PO 6XWK nystatin 100,000 unit/mL oral suspension 5 ml PO UD PRN thrush omeprazole 20 mg capsule,delayed release 20 mg PO UD PRN Acid Reflux zolpidem 10 mg tablet 10 mg PO HS Insomnia Continue as directed cholecalciferol (vitamin D3) 1,250 mcg (50,000 unit) capsule 1,250 mcg PO Q7D ( just do NOT take day of surgery) levothyroxine 75 mcg tablet 75 mcg PO 6XWK omeprazole 20 mg capsule,delayed release 20 mg PO UD PRN Acid Reflux (if needed) nystatin 100,000 unit/mL oral suspension 5 ml PO UD PRN thrush (if needed but do NOT swallow morning of surgery- only swish and spit) ASK your surgeon for instructions ibuprofen 200 mg tablet 200 mg PO UD PRN Pain celecoxib 100 mg capsule (Celebrex) 100 mg PO UD PRN Pain ASK your prescriber and surgeon hydroxychloroquine 200 mg tablet 250 mg PO QAM STOP taking 24 hours before surgery clotrimazole 1 % topical cream 1 applic topical UD PRN Rash/Lupus triamcinolone acetonide 0.1 % lotion 1 applic topical UD PRN Rash clobetasol 0.05 % topical cream 1 applic topical UD PRN Skin Irritation hydrocortisone 2.5 % topical cream with perineal applicator (Anusol-HC) [address] UD PRN hemorrhoids DO NOT take the morning of surgery folic acid 1 mg tablet 1 mg PO QAM potassium chloride 20 mEq tablet,extended release 20 meq PO BID furosemide 20 mg tablet 20 mg PO UD PRN ankle swelling hydrochlorothiazide 25 mg tablet 25 mg PO UD PRN Lower extremity swelling clotrimazole 10 mg fawad 10 mg mucous membrane UD PRN Thrush Take morning of surgery With a small sip of water, OTHERWISE NOTHING TO EAT OR DRINK AFTER MIDNIGHT: aspirin 81 mg tablet,delayed release 81 mg PO QAM (unless surgeon directed otherwise) aripiprazole 2 mg tablet (Abilify) 2 mg PO QAM oxycodone 5 mg tablet 5 mg PO Q6H PRN pain (if needed) ondansetron HCl 4 mg tablet 4 mg PO Q8H PRN nausea and vomiting (if needed) acetaminophen 325 mg tablet (Tylenol) 325 mg PO UD PRN Pain (if needed) fluoxetine 20 mg tablet 40 mg (2 x 20 mg) PO QAM lorazepam 0.5 mg tablet (Ativan) 0.5 mg PO BID PRN Anxiety (if needed) gabapentin 100 mg capsule 100 mg PO TID gabapentin 800 mg tablet 800 mg PO TID albuterol sulfate 1.25 mg/3 mL solution for nebulization 1.25 mg inhalation UD PRN hx pneumonia (if needed) albuterol sulfate 90 mcg/actuation aerosol inhaler 2 puffs inhalation UD PRN hx pneumonia (use if needed; please bring with you to hospital day of surgery if possible) Take evening before surgery polyethylene glycol 3350 17 gram/dose oral powder (Miralax) 17 g PO HS oxycodone 5 mg tablet 5 mg PO Q6H PRN pain (if needed) ondansetron HCl 4 mg tablet 4 mg PO Q8H PRN nausea and vomiting (if needed) acetaminophen 325 mg tablet (Tylenol) 325 mg PO UD PRN Pain (if needed) amitriptyline 10 mg tablet 20 mg (2 x 10 mg) PO HS potassium chloride 20 mEq tablet,extended release 20 meq PO BID gabapentin 100 mg capsule 100 mg PO TID gabapentin 800 mg tablet 800 mg PO TID lorazepam 0.5 mg tablet (Ativan) 0.5 mg PO BID PRN Anxiety (if needed) albuterol sulfate 1.25 mg/3 mL solution for nebulization 1.25 mg inhalation UD PRN hx pneumonia (if needed) albuterol sulfate 90 mcg/actuation aerosol inhaler 2 puffs inhalation UD PRN hx pneumonia (if needed) zolpidem 10 mg tablet 10 mg PO HS Insomnia clotrimazole 10 mg fawad 10 mg mucous membrane UD PRN Thrush (if needed) Other Notes If you have any questions please call us at [phone] or [phone] or [phone] or [phone]
--- NOTE | 2025-04-27 09:55 | Anesthesiology Consultation ---
Date of Service April 27, 2025 Assessment & Plan (1) Encounter for pre-operative examination: - awaiting [place] endocrinology ordered morning cortisol and ACTH/pre-op determination if she will need stress dosing. - endocrinology office visit/pre-op notation 05/05/25 [place]: "...Since that time she has reportedly been off of prednisone entirely, not feeling ideal but pushing through. She is scheduled for hip replacement surgery May 28. Main question today is if she needs stress dosing of steroids going into that surgery. Will check morning cortisol and ACTH to see where her HPA axis is at..." Chart Review Chart Review: Patient seen in Pre Admission Testing Teaching & Discussion Pre-Anesthesia Teaching/Discussion Notes: Instructed NPO after midnight before surgery, except medications with 15 cc of water. Medication instructions provided according to the PAT guidelines. History Surgery Operation Date: 05/28/25 13:00 Proposed Procedures p Right Anterior Total Hip Arthroplasty - Stuart Aguirre, DO Height/Weight Height: 5 ft 9 in Weight: 71.6 kg Allergies Allergy/AdvReac Type Severity Reaction Status Date / Time cefazolin Allergy Unknown Itching Verified 04/25/25 14:45 vancomycin AdvReac Severe Red Man Verified 04/25/25 14:45 Syndrome belimumab AdvReac Unknown Nausea/Vomi Verified 04/25/25 14:45 ting Penicillins AdvReac Unknown Syncope as Verified 04/25/25 14:45 a child sorbitan esters AdvReac Unknown Nausea/Vomi Verified 04/25/25 14:45 ting Medications Home Medications Medication Instructions Recorded Confirmed Last Taken aspirin 81 mg tablet,delayed 81 mg PO QAM 07/27/18 04/25/25 11/09/24 release folic acid 1 mg tablet 1 mg PO QAM 07/27/18 04/25/25 11/09/24 polyethylene glycol 3350 17 17 g PO HS 07/27/18 04/25/25 11/08/24 gram/dose oral powder (Miralax) clotrimazole 1 % topical cream 1 applic topical UD PRN Rash/Lupus 03/21/24 04/25/25 Unknown clotrimazole 10 mg fawad 10 mg mucous membrane UD PRN Thrush 03/21/24 04/25/25 Unknown oxycodone 5 mg tablet 5 mg PO Q6H PRN pain #30 tabs 05/08/24 04/25/25 11/09/24 07:00 acetaminophen 325 mg tablet 325 mg PO UD PRN Pain 08/01/24 04/25/25 Unknown (Tylenol) ibuprofen 200 mg tablet 200 mg PO UD PRN Pain 08/01/24 04/25/25 Unknown amitriptyline 10 mg tablet 20 mg (2 x 10 mg) PO HS #180 tabs 09/12/24 04/25/25 11/09/24 triamcinolone acetonide 0.1 % 1 applic topical UD PRN Rash 11/02/24 04/25/25 Unknown lotion cholecalciferol (vitamin D3) 1,250 1,250 mcg PO Q7D #14 caps 11/13/24 04/25/25 Unknown mcg (50,000 unit) capsule fluoxetine 20 mg tablet 40 mg (2 x 20 mg) PO QAM #180 tabs 12/11/24 04/25/25 Unknown potassium chloride 20 mEq 20 meq PO BID #120 tabs 12/18/24 04/25/25 Unknown tablet,extended release walker (Ultra-Light Rollator misc) #1 ea 02/09/25 04/25/25 Unknown lorazepam 0.5 mg tablet (Ativan) 0.5 mg PO BID PRN Anxiety #60 tabs 03/26/25 04/25/25 Unknown furosemide 20 mg tablet 20 mg PO UD PRN ankle swelling 04/09/25 04/25/25 Unknown gabapentin 100 mg capsule 100 mg PO TID 04/09/25 04/25/25 Unknown gabapentin 800 mg tablet 800 mg PO TID 04/09/25 04/25/25 Unknown albuterol sulfate 1.25 mg/3 mL 1.25 mg inhalation UD PRN hx 04/20/25 04/25/25 Unknown solution for nebulization pneumonia albuterol sulfate 90 mcg/actuation 2 puffs inhalation UD PRN hx 04/20/25 04/25/25 Unknown aerosol inhaler pneumonia aripiprazole 2 mg tablet (Abilify) 2 mg PO QAM 04/20/25 04/25/25 Unknown clobetasol 0.05 % topical cream 1 applic topical UD PRN Skin 04/20/25 04/25/25 Unknown Irritation hydrochlorothiazide 25 mg tablet 25 mg PO UD PRN Lower extremity 04/20/25 04/25/25 Unknown swelling hydrocortisone 2.5 % topical cream 1 applic DC UD PRN hemorrhoids 04/20/25 04/25/25 Unknown with perineal applicator (Anusol-HC) hydroxychloroquine 200 mg tablet 250 mg PO QAM 04/20/25 04/25/25 Unknown levothyroxine 75 mcg tablet 75 mcg PO 6XWK 04/20/25 04/25/25 Unknown nystatin 100,000 unit/mL oral 5 ml PO UD PRN thrush 04/20/25 04/25/25 Unknown suspension omeprazole 20 mg capsule,delayed 20 mg PO UD PRN Acid Reflux 04/20/25 04/25/25 Unknown release zolpidem 10 mg tablet 10 mg PO HS Insomnia 04/20/25 04/25/25 Unknown celecoxib 100 mg capsule (Celebrex) 100 mg PO DAILY PRN Pain 04/25/25 04/25/25 Unknown Past Medical History Medical History (Updated 04/27/25 @ 10:46 by Eva Edwards PA-C) ADHD no medication for Anemia on occ - not known to be current problem. Antiphospholipid antibody syndrome reason for aspirin use Anxiety Arachnoiditis d/t failed lumbar fusion Carotid arterial disease [facility] [place], "She had a carotid ultrasound many years ago and it did not show any serious disease" Chronic back pain Chronic constipation Chronic venous insufficiency COPD (chronic obstructive pulmonary disease) inh and neb prn > very rare use pat call 04/20/25 - ? official dx, pt reports entry was placed around time she had bronchitis (yrs ago), had hx eval with pulmonary (2023 or 2024 ) and pt was told her lungs are fine. Fibromyalgia GERD (gastroesophageal reflux disease) controlled, stable per pt History of depression situational History of hyperlipidemia no medication for past 10 yrs per pt History of hypertension no medication for past 10 yrs per pt History of prediabetes not current per pt. Hx MRSA infection (~2020) 2020 - while visiting hospital, was acquired > completed tx, no issues since Hx of Carlos thyroiditis Hx of migraines Hypoxia hx, w/pneumonia "in the past," also occurs with lupus flares or illness IBS (irritable bowel syndrome) Interstitial cystitis controlled at current Kidney stones "still present" - no problems known at current; haven't moved in yrs per pt. MGUS (monoclonal gammopathy of unknown significance) Osteoarthritis Paroxysmal supraventricular tachycardia s/p ablation Peripheral neuropathy Raynaud's disease Sciatica SIADH (syndrome of inappropriate ADH production) Sjogren's syndrome SLE (systemic lupus erythematosus) Dr Duarte, [facility] rheumatology Thoracic ascending aortic aneurysm [facility] [place] monitoring Chest CT 12/2023: There is mild aneurysmal dilatation of the ascending thoracic aorta which measures up to 4.2 cm in diameter. Toenail fungus chronic fungal issue both big toes, denies change to baseline "stays the same". Pt instructed to notify surgeon of this information. Pt voices understanding. pre op edu rev. Patient denies h/o stroke, seizures, heart attack, heart failure, blood clots/DVTs or blood transfusions. Exercise / Class Metabolic Activity III < 4 Walking/Shop/Light housework (ambulates with rolling walker, occasional shortness of breath with usual activities ongoing for several years primarily related to pain per patient-denies change or worsening; denies chest discomfort) Past Family History Family History Mother Family hx colonic polyps Father Myocardial infarction Grandmother (Maternal) No problems noted. Grandmother (Paternal) Myocardial infarction Other No family history of adverse response to anesthesia Denies family history of Ovarian cancer Prostate cancer Breast cancer Colorectal cancer Past Surgical History Surgical History History of cardiac radiofrequency ablation for SVT (2009), [facility]; f/u [facility] History of section History of colonoscopy (2018) History of dilatation and curettage History of endoscopic sinus surgery History of esophagogastroduodenoscopy (EGD) History of hand surgery right hand History of laminectomy x2, 1998 and ~2004 History of laparoscopy "Checking for endometriosis" History of lumbar spinal fusion ~2015, L5-S1 History of neck surgery left lymph node removal d/t englargement (benign) History of removal of cyst Eyelid History of surgery on arm Right arm mass excision (10/23/2021): [place] [facility] [place] History of tonsillectomy and adenoidectomy History of tooth extraction all teeth History of total left hip replacement 04/2024, anterior S/P ORIF (open reduction internal fixation) fracture Right Humerus 2018 d/t fall on ice > hardware intact Status post wrist surgery right wrist pin in place Past Anesthesia History No Hx of Anesthesia Complications and No Family Hx of Anesthesia Complications History of PONV No Hx of PONV and No Hx of Motion Sickness Social History Smoking Status: Former smoker Do You Dip or Chew Tobacco: No Smoking End Date: 10 yrs ago Hx Alcohol Use: No Hx Substance Use: No substance use type: does not use Review of Systems Patient denies chest pain, snoring, witnessed apneas, fever, chills, cough, wheezing, or palpitations. Physical Exam Vital Signs Vitals BP 114/78 P 60 TEMP 98.6 SP02 96% on RA RESP 18 Physical Patient resting comfortably in chair in no acute distress, alert and oriented, responding appropriately throughout visit Full cervical extension range of motion without pain TMD 3.5 finger breadths Mallampati Score 2 Dentition: edentulous, full upper and lower dentures Lungs: normal respiratory effort. Good air movement, clear throughout to auscultation, no adventitious breath sounds Cardiac: regular rate and rhythm, no murmurs noted Carotid arteries: negative bruit bilat Lab Results Anesthesia Preop Results Results Anesthesia Widget: WBC 3.29 K/ul (4.8-10.8) L 04/27/25 Hgb 10.8 g/dl (12.0-16.0) L 04/27/25 Hct 32.9 % (37.0-47.0) L 04/27/25 Plt 245 K/uL (130-400) 04/27/25 Na 132 mmol/L (136-145) L 04/27/25 K 4.3 mmol/L (3.5-5.1) 04/27/25 Cl 102 mmol/L (98-107) 04/27/25 CO2 25 mmol/L (21-32) 04/27/25 BUN 12 mg/dl (6-23) 04/27/25 Creat 0.88 mg/dl (0.6-1.2) 04/27/25 Glucose Level 77 mg/dl (70-99(Fasting)) 04/27/25 PT 10.1 Seconds (9.0-12.0) 04/27/25 PTT 27 Seconds (21-31) 04/27/25 INR 1.0 (0.9-1.1) 04/27/25 Blood Type O Positive 04/27/25 Antibody Screen NEGATIVE 04/27/25 Testing Electrocardiogram Date: 09/19/24 NSR, rate 76 bpm Chest X-Ray Date: 09/19/24 *1 view* Stable exam; no acute process Echocardiogram Date: 08/14/21 EF 55-60% No regional wall motion abnormalities Mild tricuspid regurgitation Mildly dilated ascending aorta Aortic root 4 cm (unchanged when compared with 10/2020 echo) Other Testing Low dose lung CT 12/25/24 1. No nodules. According to Lung RADS, category 1. Recommendations: Continue annual screening with LDCT. 2. No acute pleuropulmonary disease. 3. Interval stable upper lobe predominant mild to moderate centrilobular emphysema. 4. Interval stable aneurysm of ascending aorta. 5. No significant interval change since prior CT chest dated 12-24-2023.
--- NOTE | 2025-05-23 15:34 | History & Physical Report ---
Date of Service May 23, 2025 History of Present Illness Chief Complaint: Osteoarthritis right hip. Primary Care Provider: Jairo Escobar MD Nargis is a pleasant 59-year-old female who I did a left hip replacement on a year ago. She is doing very well with that. Unfortunately, she is really struggling with her right hip. She had an MRI which showed a questionable stress fracture. She then had a CT scan which was negative. The x-rays have not looked too bad. She is walking with a walker because of her right hip. She is really struggling with it. After failing conservative treatment, she has elected proceed with a right anterior total of arthroplasty. Allergies Allergy/AdvReac Type Severity Reaction Status Date / Time cefazolin Allergy Unknown Itching Verified 05/21/25 12:31 vancomycin AdvReac Severe Red Man Verified 05/21/25 12:31 Syndrome belimumab AdvReac Unknown Nausea/Vomi Verified 05/21/25 12:31 ting Penicillins AdvReac Unknown Syncope as Verified 05/21/25 12:31 a child sorbitan esters AdvReac Unknown Nausea/Vomi Verified 05/21/25 12:31 ting Home Medications Medication Instructions Recorded Confirmed Type aspirin 81 mg tablet,delayed 81 mg PO QAM 07/27/18 05/21/25 History release folic acid 1 mg tablet 1 mg PO QAM 07/27/18 05/21/25 History polyethylene glycol 3350 17 17 g PO HS 07/27/18 05/21/25 History gram/dose oral powder (Miralax) clotrimazole 1 % topical cream 1 applic topical UD PRN Rash/Lupus 03/21/24 05/21/25 History clotrimazole 10 mg fawad 10 mg mucous membrane UD PRN Thrush 03/21/24 05/21/25 History oxycodone 5 mg tablet 5 mg PO Q6H PRN pain #30 tabs 05/08/24 05/21/25 Rx acetaminophen 325 mg tablet 325 mg PO UD PRN Pain 08/01/24 05/21/25 History (Tylenol) ibuprofen 200 mg tablet 200 mg PO UD PRN Pain 08/01/24 05/21/25 History amitriptyline 10 mg tablet 20 mg (2 x 10 mg) PO HS #180 tabs 09/12/24 05/21/25 Rx triamcinolone acetonide 0.1 % 1 applic topical UD PRN Rash 11/02/24 05/21/25 History lotion cholecalciferol (vitamin D3) 1,250 1,250 mcg PO Q7D #14 caps 11/13/24 05/21/25 Rx mcg (50,000 unit) capsule fluoxetine 20 mg tablet 40 mg (2 x 20 mg) PO QAM #180 tabs 12/11/24 05/21/25 Rx potassium chloride 20 mEq 20 meq PO BID #120 tabs 12/18/24 05/21/25 Rx tablet,extended release walker (Ultra-Light Rollator misc) #1 ea 02/09/25 05/21/25 Rx furosemide 20 mg tablet 20 mg PO UD PRN ankle swelling 04/09/25 05/21/25 History gabapentin 100 mg capsule 100 mg PO TID 04/09/25 05/21/25 History gabapentin 800 mg tablet 800 mg PO TID 04/09/25 05/21/25 History albuterol sulfate 1.25 mg/3 mL 1.25 mg inhalation UD PRN hx 04/20/25 05/21/25 History solution for nebulization pneumonia albuterol sulfate 90 mcg/actuation 2 puffs inhalation UD PRN hx 04/20/25 05/21/25 History aerosol inhaler pneumonia aripiprazole 2 mg tablet (Abilify) 2 mg PO QAM 04/20/25 05/21/25 History clobetasol 0.05 % topical cream 1 applic topical UD PRN Skin 04/20/25 05/21/25 History Irritation hydrochlorothiazide 25 mg tablet 25 mg PO UD PRN Lower extremity 04/20/25 05/21/25 History swelling hydrocortisone 2.5 % topical cream 1 applic UT UD PRN hemorrhoids 04/20/25 05/21/25 History with perineal applicator (Anusol-HC) hydroxychloroquine 200 mg tablet 250 mg PO QAM 04/20/25 05/21/25 History levothyroxine 75 mcg tablet 75 mcg PO 6XWK 04/20/25 05/21/25 History nystatin 100,000 unit/mL oral 5 ml PO UD PRN thrush 04/20/25 05/21/25 History suspension omeprazole 20 mg capsule,delayed 20 mg PO UD PRN Acid Reflux 04/20/25 05/21/25 History release hydrocortisone 10 mg tablet 30 mg (3 x 10 mg) PO DAILY 90 days 05/01/25 05/21/25 Rx #270 tabs oxycodone 5 mg tablet 5 mg PO Q6H PRN pain, severe #10 05/15/25 05/21/25 Rx tabs lorazepam 0.5 mg tablet (Ativan) 0.5 mg PO BID PRN Anxiety #60 tabs 05/16/25 05/21/25 Rx zolpidem 10 mg tablet 10 mg PO HS Insomnia #30 tabs 05/18/25 05/21/25 Rx Past Med/Surg History Problem List Chronic adrenal insufficiency (Acute) Chronic right hip pain (Acute) Acute pain of left hip (Acute) Ambulatory dysfunction (Acute) Left hip pain Secondary adrenal insufficiency Lumbar radiculopathy Other cervical disc degeneration at C5-C6 level Neck pain Carlos's thyroiditis Swelling of lower extremity Vitamin D deficiency SIADH (syndrome of inappropriate ADH production) 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) use of systemic steroids Prediabetes Fatigue Peripheral neuropathy Status post left hip replacement (Acute ~04/2024) Raynaud's disease 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 Pt instructed to notify surgeon of this information. Pt voices understanding. pre op edu rev. History of depression situational Sciatica Interstitial cystitis controlled at current Fibromyalgia History of hyperlipidemia no medication for past 10 yrs per pt History of hypertension no medication for past 10 yrs per pt Raynaud's disease Sjogren's syndrome SIADH (syndrome of inappropriate ADH production) History of prediabetes not current per pt. Peripheral neuropathy MGUS (monoclonal gammopathy of unknown significance) Hx of Carlos thyroiditis Chronic venous insufficiency Antiphospholipid antibody syndrome reason for aspirin use Hypoxia hx, w/pneumonia "in the past," also occurs with lupus flares or illness Paroxysmal supraventricular tachycardia s/p ablation Carotid arterial disease [facility] cardio records from 2021 note, "She had a carotid ultrasound many years ago and it did not show any serious disease" Hx MRSA infection (~2020) 2020 - while visiting hospital, was acquired > completed tx, no issues since IBS (irritable bowel syndrome) Hx of migraines Arachnoiditis d/t failed lumbar fusion ADHD no medication for Thoracic ascending aortic aneurysm [facility] Vascular surgery monitoring Chest CT 12/2023: There is mild aneurysmal dilatation of the ascending thoracic aorta which measures up to 4.2 cm in diameter. SLE (systemic lupus erythematosus) Dr Duarte, [facility] rheumatology COPD (chronic obstructive pulmonary disease) inh and neb prn > very rare use pat call 04/20/25 - ? official dx, pt reports entry was placed around time she had bronchitis (yrs ago), had hx eval with pulmonary (2023 or 2024 ) and pt was told her lungs are fine. Anxiety Osteoarthritis Chronic back pain Kidney stones "still present" - no problems known at current; haven't moved in yrs per pt. Chronic constipation GERD (gastroesophageal reflux disease) controlled, stable per pt Anemia on occ - not known to be current problem. Surgical History History of total left hip replacement 04/2024, anterior History of surgery on arm Right arm mass excision (10/23/2021): LMA#4 at [facility] S/P ORIF (open reduction internal fixation) fracture Right Humerus 2018 d/t fall on ice > hardware intact History of section History of removal of cyst Eyelid History of laparoscopy "Checking for endometriosis" History of dilatation and curettage History of hand surgery right hand Status post wrist surgery right wrist pin in place History of laminectomy x2, 1998 and ~2004 History of lumbar spinal fusion ~2015, L5-S1 History of colonoscopy (2019) History of esophagogastroduodenoscopy (EGD) History of tooth extraction all teeth History of tonsillectomy and adenoidectomy History of neck surgery left lymph node removal d/t englargement (benign) History of endoscopic sinus surgery History of cardiac radiofrequency ablation for SVT (2009), [facility] [place]; f/u [facility] Family History Mother Family hx colonic polyps Father Myocardial infarction Grandmother (Maternal) No problems noted. Grandmother (Paternal) Myocardial infarction Other No family history of adverse response to anesthesia Denies family history of Ovarian cancer Prostate cancer Breast cancer Colorectal cancer Social History Smoking Status: Former smoker Tobacco Type: Cigarettes Age Started Using Tobacco: 12; Age Quit Using Tobacco: 50; packs per day: 1; Second Hand Exposure: No; Do You Dip or Chew Tobacco: No; Hx Alcohol Use: No Hx Substance Use: No Preferred Language: [place] Communication Ability: Effective Daycare Teacher Required: No Beliefs That Will Affect Care: Advent Advent Beliefs: Sabianism marital status: Current Living Situation: Family and Other Current Living Situation Comment: One story house current occupational status: employed and unemployed Feels Safe at Home: Yes Childhood Exposure to Second-Hand Smoke: Yes Diet: regular Dental Care, Regularly: No Physical Activity Frequency: 3-4 Times per Week Physical Activity Frequency Comment: crunches, stretching, weights Seatbelt Use: always Sunscreen Use: Yes Assistive Devices: Walker Review of Systems All systems reviewed & are unremarkable except as noted in HPI & below. Physical Exam We will proceed with a right anterior total of arthroplasty. Postoperatively, she will be started on aspirin for DVT prophylaxis and kept overnight in the hospital for postop medical management. She plans to use energy physical therapy after discharge.. Constitutional WD/WN, vitals as above Eyes PERRL, conjunctivae normal, anicteric sclerae ENMT external ear and nose normal, oropharynx normal Neck trachea midline, no thyromegaly Respiratory normal respiratory effort Cardiovascular RRR, no murmur, no edema Gastrointestinal (Abdomen) normal bowel sounds, soft, nontender, no hepatosplenomegaly Psychiatric A+Ox3, euthymic affect Results & Data Results & Data Laboratory Results . Diagnostic Findings . PG Care Time/CCT Total # of Minutes Spent Total Time Spent with Patient: Total time spent is greater than 50% in coordination of care (as documented) at patient's floor/unit and/or counseling patient: Coding Level of Care Code None
[~2025-05-28 10:00] MED LIST changes: +BUPIVACAINE 0.5 % 5 MG/1 ML PF 10ML VIAL ONE; -ROPIVACAINE 0.5% 5 MG/ML 30 ML VIAL ONE
[2025-05-28] MEDS: LR 60ML/HR IV SCH (10:26)
[2025-05-28] MEDS ORDERED: Nursing to Pharmacy Communication SCH (10:30)
[2025-05-28] MEDS: GABAPENTIN 600 MG DOSE PO SCH (10:39)
[2025-05-28] MEDS ORDERED: KETAMINE HCL 10MG/ML SYR ONE (10:52)
[2025-05-28] MEDS ORDERED: MIDAZOLAM HCL 1 MG/ML 2ML VIAL ONE (10:52)
[2025-05-28] MEDS ORDERED: PROPOFOL IV EMULSION 10 MG/ML 20 ML VIAL IV ONE ×2 (10:53)
[2025-05-28] MEDS: dexAMETHasone**PF** 10 MG/ML VIAL IV SCH (11:03)
[2025-05-28] MEDS: ACETAMINOPHEN 500 MG TAB PO SCH ×2 (11:05→19:56)
[2025-05-28] MEDS: FAMOTIDINE 20 MG TAB PO SCH (11:05)
--- NOTE | 2025-05-28 11:17 | History & Physical Bridge Note ---
Date of Service May 28, 2025 History & Physical Bridge Note I have examined the patient, reviewed the History & Physical and in the interval since the performance of the History & Physical I have noted the following changes of clinical significance: no changes noted
[2025-05-28] MEDS: TRANEXAMIC ACID 1,000 MG **IV Pre-op IV SCH (12:02)
[2025-05-28] MEDS ORDERED: HYDROCORTISONE SOD SUCCINATE 100 MG/2 ML VIAL ONE (12:20)
[2025-05-28] MEDS: ORTHO JOINT ANESTHETIC ONE (12:46)
[2025-05-28] MEDS: ROPIV 0.5% 246mg, Ketorolac 30mg, EPINEPHrine 0.5mg in NSS INFIL SCH (13:02)
--- NOTE | 2025-05-28 13:12 | Operative Report ---
PG Post Operative Report Pre & Post Diagnosis Operation Date: 05/28/25 12:00 Pre-Op Diagnosis: Osteoarthritis right hip Post-Op Diagnosis: Osteoarthritis right hip I identified the patient and participated in the time-out.: Yes Procedure Operation Date: 05/28/25 12:00 Actual Procedures p Right Anterior Total Hip Arthroplasty(Right) - Stuart Aguirre DO Surgeon Stuart Aguirre DO Vacuum Caster Michelle Tejeda PA-C Estimated Blood Loss 200 Findings Consistent with Post-Op Diagnosis Specimens Right femoral head Description of Procedure Implants used I used a ZimmerBiomet total hip arthroplasty system with a size 5 standard Z1 stem, a 50 mm G7 cup, an E1 polyethylene liner, a 36 mm ceramic head with a 0 neck. Nargis arrived at the hospital for the above procedure. She was seen in the preoperative holding area and the operative extremity was identified and signed. She was given a spinal anesthetic, a preoperative antibiotic, and TXA. She was then taken back to the operating room and laid on the table in the supine position. She was given basic sedation. The operative leg was secured to a Puristst leg positioner. The hip was then prepped and draped in sterile fashion. A timeout was done and the patient and the operative extremity was properly identified. An anterior approach was used. Dissection was taken down through the fascia and the tensor muscle belly was retracted laterally and the rectus was retracted medially. The circumflex vessels were identified and ligated. The capsule was then incised and tagged for later repair. The femoral neck was then cut and the femoral head was removed. The acetabulum was exposed. Time was spent doing a complete circumferential labral release. Sequential reaming of the acetabulum up to a size 49 reamer was done. Final reamings were done under fluoroscopy to ensure appropriate version. A Biomet 50 mm G7 cup was then impacted into place. The E1 polyethylene liner was then snapped into place. Surrounding soft tissues were then injected with 100 cc of an orthopedic pain control cocktail. The proximal femur was then exposed. Sequential broaching up to a size 5 broach was done. Off that broach a size 36 head with a 0 neck was trialed. The hip was reduced and fluoroscopic images showed anatomic alignment of the implants in acceptable length. The broach was removed. The final size 5 standard offset Z1 stem was then impacted into place. A ceramic 36 mm head with a 0 neck was then impacted onto the stem and the hip was reduced. Final fluoroscopic images showed anatomic alignment of the hip. The capsule was then closed with #1 Vicryl suture. A dilute betadyne lavage was then done for 3 minutes. The joint was then irrigated with normal saline solution. The fascia was closed with #1 PDS suture. Skin was closed with 2-0 Vicryl, Dittmer Zipline, and a Silverlon dressing. She was then transferred to a hospital bed and taken to the post anesthesia care unit in stable condition. She tolerated the procedure well. Michelle Tejeda PA-C, was present for the entire procedure. He was critical for patient positioning, prepping, draping, retraction exposure, wound closure and application of sterile dressing. I attest to the content of the Intraoperative Record and any orders documented therein. Any exceptions are noted below.
--- NOTE | 2025-05-28 13:45 | Fluoroscopy Report ---
FL hip RT 1V CLINICAL HISTORY: RT ANTERIOR HIP COMPARISON STUDY: 11/18/2024 FLUOROSCOPY TIME: 12 seconds FLUOROSCOPY IMAGES: 1 EXPOSURE DOSE: 1.7 mGy FINDINGS: Fluoroscopy was provided for right hip prosthesis. IMPRESSION: Intraoperative fluoroscopy. ACT 112: Negative or not required by law. Electronically signed by: Ignacio Macdonald M.D. 05/28/2025 1:44 PM
--- NOTE | 2025-05-28 14:04 | Anesthesiology Progress Note ---
Date of Service May 28, 2025 Anesthesia Post Procedure Vital Signs Vital Signs: Temp Pulse Resp BP Pulse Ox O2 Del Method 05/28/25 10:41 36.5 C 55 L 20 197/89 H 96 Room Air Pain Intensity Right Hip: Pain Intensity: 5 Left Knee: Pain Intensity: 3 Notes Mental Status: alert / awake / arousable Patient Amnestic to Procedure: Yes Nausea / Vomiting: adequately controlled Pain: adequately controlled Airway Patency, RR, SpO2: stable & adequate BP & HR: stable & adequate Hydration State: stable & adequate Neuraxial Anesthesia: was administered Anesthetic Complications: no major complications apparent
--- NOTE | 2025-05-28 14:56 | XRay Report ---
XR hip 1V RT w pelvis HISTORY: 59 years-old Female IN PACU - Post Surgical COMPARISON: 05/14/2025 TECHNIQUE: AP view the pelvis with crosstable lateral view of the right hip FINDINGS: Unchanged appearance of the left hip arthroplasty. There is satisfactory alignment of the right hip a rthroplasty with expected postoperative soft tissue swelling and deep tissue air. Not expected opaque foreign bodies. Postoperative changes of the lumbosacral spine. IMPRESSION: Satisfactory alignment of the right hip arthroplasty. ACT 112: Negative or not required by law. The above report was generated using voice recognition software. It may contain grammatical, syntax o r spelling errors. Electronically signed by: Lukas Garcia M.D. 05/28/2025 2:55 PM
[2025-05-28] MEDS ORDERED: ONDANSETRON INJ 2 MG/ML 2 ML VIAL IV PRN (15:19)
[2025-05-28] MEDS ORDERED: hydroCHLOROthiazide 25 MG TAB PO PRN (15:19)
[2025-05-28] MEDS ORDERED: ALUMINUM/MAGNESIUM SUSP 30 ML UDC PO PRN (15:19)
[2025-05-28] MEDS ORDERED: NALOXONE HCL 0.4 MG/1 ML VIAL/CARP IV PRN (15:19)
[2025-05-28] MEDS ORDERED: METOCLOPRAMIDE HCL INJ 5 MG/ML 2 ML VIAL IV PRN (15:19)
[2025-05-28] MEDS ORDERED: diphenhydrAMINE Capsule 25 MG CAP PO PRN (15:19)
[2025-05-28] MEDS ORDERED: FUROSEMIDE 20 MG TAB PO PRN (15:19)
[2025-05-28] MEDS ORDERED: MAGNESIUM HYDROXIDE SUSP 30 ML UDC PO PRN (15:19)
[2025-05-28] MEDS: GABAPENTIN 800 MG TAB PO SCH (16:27)
[2025-05-28] MEDS: SODIUM CHLORIDE 0.9% 1,000 ML IV SCH (16:28)
[2025-05-28] MEDS: GABAPENTIN 100 MG CAP PO SCH (16:28)
[2025-05-28] MEDS: HYDROCORTISONE 10 MG TAB PO SCH (16:30)
[2025-05-28] MEDS: KETOROLAC TROMETHAMINE 15 MG/ML VIAL IV SCH (16:53)
[2025-05-28] MEDS: ZOLPIDEM TARTRATE 5 MG TAB PO SCH (21:37)
[2025-05-28] MEDS: POTASSIUM CHLORIDE CRTAB 20 MEQ TABCR PO SCH (21:39)
[2025-05-28] MEDS: DOCUSATE SODIUM 100 MG CAP PO SCH (21:40)
[2025-05-28] MEDS: ASPIRIN 81 MG ECTAB PO SCH (21:40)
[2025-05-28] MEDS: AMITRIPTYLINE HCL 10 MG TAB PO SCH (21:41)
[2025-05-28] MEDS: SENNA 8.6 MG TAB PO SCH (21:43)
[2025-05-28] MEDS: POLYETHYLENE (MIRALAX) 17 GM PACK PO SCH (21:43)
[2025-05-28] MEDS: LORazepam 0.5 MG TAB PO PRN (22:57)
--- NOTE | 2025-05-29 02:07 | Hospitalist Consultation ---
Date of Consultation May 29, 2025 Assessment & Plan (1) Hypertension: (2) Headache: (3) S/P total right hip arthroplasty: (4) Secondary adrenal insufficiency: (5) Carlos's thyroiditis: (6) SIADH (syndrome of inappropriate ADH production): (7) Prediabetes: (8) Peripheral neuropathy: (9) Chronic venous insufficiency: (10) COPD (chronic obstructive pulmonary disease): (11) Depression: (12) Anxiety: Plan Patient is a 59-year-old female with past medical history of secondary adrenal insufficiency, secondary to lumbar radiculopathy, cervical radiculopathy/cellulitis, SIADH, prediabetes, peripheral neuropathy, chronic venous insufficiency, hypertension, SLE, Sjogrens, MGUS, COPD, interstitial cystitis, ADHD, fibromyalgia, depression, anxiety, and is s/p (R) RYAN (POD 0) for which hospitalist service was consulted for management of HTN and headache. ## HTN Known history of HTN not currently on antihypertensives at home Uses HCTZ at home as needed for management of LE swelling associated to venous stasis but not too often Was on Lisinopril and amlodipine in the past which she says she did well with Elevated BP readings w/o associated sxs; could be related to untreated HTN versus pain and anxiety leading to elevations in BP Will manage with Amlodipine PO now and qam Monitor BP w/ goal of staying < 190 mmHg systolic and < 100 mm Hg diastolic ## Headache Has known hx of headaches similar to the one she is experiencing at this time No associated sxs as detail;ed above, therefore will defer imaging at this time but could reconsider if she develops new sxs/deficits Manage with Tylenol ##S/p (R) Hip AKILA POD 0 Pain well controlled with Tylenol, Toradol, and Oxycodone Further management per primary team ##Chronic Venous stasis No swelling on exam today Uses HCTZ at home prn for this but does so sometimes (?every 2 weeks or so) Recommend LE elevation and compression stockings Did advise patient of possible risk of LE swelling due to amlodipine adverse effects; patient state she tolerated it well in the past ##Secondary Adrenal insufficiency Follows [facility] endocrinology Continue home Hydrocortisone ##SIADH Most recent BMP from 05/14 showing sodium level of 135 Fluid restrict BMP ordered for am ##Prediabetes Most recent Hgb A1c from 11/2024 was 5.9% Diet controlled ##Peripheral neuropathy Continue home meds ##Anxiety Continue home fluoxetine and Ativan 0.5 mg bid prn Supervising Physician Co-Signing Physician Notes Attending addendum: I have supervised the medical residents activities, and agree with the H&P unless as otherwise noted. Assessment and Plan: The patient is a 59-year-old female with past medical history including secondary adrenal insufficiency, lumbar radiculopathy, cervical radiculopathy/cellulitis, SIADH, prediabetes, peripheral neuropathy, chronic venous insufficiency, hypertension, SLE, Sjogren's, MGUS, COPD, interstitial cystitis, ADHD, fibromyalgia, depression, and anxiety. She is status post right total hip arthroplasty on 05/28/2025. She was found to be hypertensive, and had a headache later in evening, and consult called [facility] Hospitalist service for further evaluation and treatment. Hypertension- Patient reports that she uses hydrochlorothiazide at home as needed to deal with swelling of lower extremities secondary to CVI. History of treatment with lisinopril and amlodipine in the past Place on amlodipine 5 mg p.o. every morning. Will make recommendations regarding home therapy upon discharge from hospital. Secondary adrenal insufficiency- Following with [facility] endocrinology Presently on hydrocortisone 20 mg in the morning and 10 mg daily at 1600. If she becomes excessively fatigued or any other suggestion of uncompensated adrenal insufficiency, she likely has a stress dosing that endocrinology would give her. If no distress dosing and she has excessive fatigue, I would suggest increasing morning hydrocortisone from 20 to 30 mg for 2 days and then returning to her baseline dose. Remaining orders and notations as noted History of Present Illness Reason for Consultation: headache, BP Requesting Physician: Talya Tejeda PA-C Attending Physician: Stuart Aguirre DO History of Present Illness Patient is a 59-year-old female with past medical history of secondary adrenal insufficiency, secondary to lumbar radiculopathy, cervical radiculopathy/cellulitis, SIADH, prediabetes, peripheral neuropathy, chronic venous insufficiency, hypertension, SLE, Sjogrens, MGUS, COPD, interstitial cystitis, ADHD, fibromyalgia, depression, anxiety, and is s/p (R) RYAN (POD 0) after failed conservative treatment for chronic pain who was admitted by ortho service for said procedure. Several hours after her procedure, patient developed a headache and when BP was checked showed elevated reading of 175/107. Patient describes the headache as wrapping around her head and feels like pressure. De nies any associated sxs such as N/V, vision changes, weakness (save for heaviness in her legs from earlier surgery), sensorial changes, chest pain, SOB, trouble with speech, or other sxs. Patient has no history of hypertension, however, does not take regular medicines at home. She states that although she was on both lisinopril and amlodipine several years ago, these were discontinued because her blood pressures were now within goal range. Of note, does use hydrochlorothiazide as needed for management of lower extremity swelling associated with chronic venous insufficiency, but does not do so on a daily basis. Patient has history of anxiety and uses. Ativan 0.5 mg twice daily as needed at home for management of symptoms, states that current symptoms feel similar to the ones that she does have when she has an anxiety attack, although is a bit more severe than usual which she attributes to her being in the hospital and having recent surgery. Allergies Allergy/AdvReac Type Severity Reaction Status Date / Time cefazolin Allergy Intermediate Itching- Verified 05/28/25 10:24 "no hives" per pt vancomycin AdvReac Severe Red Man Verified 05/28/25 10:24 Syndrome belimumab AdvReac Intermediate Nausea/Vomi Verified 05/28/25 10:24 ting Penicillins AdvReac Intermediate Syncope as Verified 05/28/25 10:24 a child sorbitan esters AdvReac Intermediate Nausea/Vomi Verified 05/28/25 10:24 ting Home Medications Medication Instructions Recorded Confirmed Type aspirin 81 mg tablet,delayed 81 mg PO QAM 07/27/18 05/28/25 History release folic acid 1 mg tablet 1 mg PO QAM 07/27/18 05/28/25 History polyethylene glycol 3350 17 17 g PO HS 07/27/18 05/28/25 History gram/dose oral powder (Miralax) clotrimazole 1 % topical cream 1 applic topical UD PRN Rash/Lupus 03/21/24 05/28/25 History clotrimazole 10 mg fawad 10 mg mucous membrane UD PRN Thrush 03/21/24 05/28/25 History acetaminophen 325 mg tablet 325 mg PO UD PRN Pain 08/01/24 05/28/25 History (Tylenol) ibuprofen 200 mg tablet 200 mg PO UD PRN Pain 08/01/24 05/28/25 History amitriptyline 10 mg tablet 20 mg (2 x 10 mg) PO HS #180 tabs 09/12/24 05/28/25 Rx triamcinolone acetonide 0.1 % 1 applic topical UD PRN Rash 11/02/24 05/28/25 History lotion cholecalciferol (vitamin D3) 1,250 1,250 mcg PO Q7D #14 caps 11/13/24 05/28/25 Rx mcg (50,000 unit) capsule fluoxetine 20 mg tablet 40 mg (2 x 20 mg) PO QAM #180 tabs 12/11/24 05/28/25 Rx potassium chloride 20 mEq 20 meq PO BID #120 tabs 12/18/24 05/28/25 Rx tablet,extended release walker (Ultra-Light Rollator misc) #1 ea 02/09/25 05/25/25 Rx furosemide 20 mg tablet 20 mg PO UD PRN ankle swelling 04/09/25 05/28/25 History gabapentin 100 mg capsule 100 mg PO TID 04/09/25 05/28/25 History gabapentin 800 mg tablet 800 mg PO TID 04/09/25 05/28/25 History albuterol sulfate 1.25 mg/3 mL 1.25 mg inhalation UD PRN hx 04/20/25 05/28/25 History solution for nebulization pneumonia albuterol sulfate 90 mcg/actuation 2 puffs inhalation UD PRN hx 04/20/25 05/28/25 History aerosol inhaler pneumonia clobetasol 0.05 % topical cream 1 applic topical UD PRN Skin 04/20/25 05/28/25 History Irritation hydrochlorothiazide 25 mg tablet 25 mg PO UD PRN Lower extremity 04/20/25 05/28/25 History swelling hydrocortisone 2.5 % topical cream 1 applic [place] UD PRN hemorrhoids 04/20/25 05/28/25 History with perineal applicator (Anusol-HC) hydroxychloroquine 200 mg tablet 250 mg PO QAM 04/20/25 05/28/25 History levothyroxine 75 mcg tablet 75 mcg PO 6XWK 04/20/25 05/28/25 History nystatin 100,000 unit/mL oral 5 ml PO UD PRN thrush 04/20/25 05/28/25 History suspension omeprazole 20 mg capsule,delayed 20 mg PO UD PRN Acid Reflux 04/20/25 05/28/25 History release hydrocortisone 10 mg tablet 30 mg (3 x 10 mg) PO DAILY 90 days 05/01/25 05/28/25 Rx #270 tabs oxycodone 5 mg tablet 5 mg PO Q6H PRN pain, severe #10 05/15/25 05/28/25 Rx tabs lorazepam 0.5 mg tablet (Ativan) 0.5 mg PO BID PRN Anxiety #60 tabs 05/16/25 05/28/25 Rx zolpidem 10 mg tablet 10 mg PO HS Insomnia #30 tabs 05/18/25 05/28/25 Rx aripiprazole 2 mg tablet (Abilify) 2 mg PO QAM #90 tabs 05/24/25 05/28/25 Rx aspirin 81 mg tablet,delayed 81 mg PO BID 45 days #90 tabs 05/28/25 Rx release (Adult Low Dose Aspirin) cefadroxil 500 mg capsule 500 mg PO BID 7 days #14 caps 05/28/25 Rx oxycodone 5 mg tablet 5 mg PO Q6H PRN pain #30 tabs 05/28/25 Rx Patient History Medical History Toenail fungus History of depression Sciatica Interstitial cystitis Fibromyalgia History of hyperlipidemia History of hypertension Raynaud's disease Sjogren's syndrome SIADH (syndrome of inappropriate ADH production) History of prediabetes Peripheral neuropathy MGUS (monoclonal gammopathy of unknown significance) Hx of Carlos thyroiditis Chronic venous insufficiency Antiphospholipid antibody syndrome Hypoxia Paroxysmal supraventricular tachycardia Carotid arterial disease Hx MRSA infection (~2020) IBS (irritable bowel syndrome) Hx of migraines Arachnoiditis ADHD Thoracic ascending aortic aneurysm SLE (systemic lupus erythematosus) COPD (chronic obstructive pulmonary disease) Anxiety Osteoarthritis Chronic back pain Kidney stones Chronic constipation GERD (gastroesophageal reflux disease) Anemia Surgical History History of total left hip replacement History of surgery on arm S/P ORIF (open reduction internal fixation) fracture History of section History of removal of cyst History of laparoscopy History of dilatation and curettage History of hand surgery Status post wrist surgery History of laminectomy History of lumbar spinal fusion History of colonoscopy (2019) History of esophagogastroduodenoscopy (EGD) History of tooth extraction History of tonsillectomy and adenoidectomy History of neck surgery History of endoscopic sinus surgery History of cardiac radiofrequency ablation Family History Mother Family hx colonic polyps Father Myocardial infarction Grandmother (Maternal) No problems noted. Grandmother (Paternal) Myocardial infarction Other No family history of adverse response to anesthesia Denies family history of Ovarian cancer Prostate cancer Breast cancer Colorectal cancer Social History Smoking Status: Former smoker Tobacco Type: Cigarettes Age Started Using Tobacco: 12; Age Quit Using Tobacco: 50; packs per day: 1; Smoking End Date: 05/28/2015; Second Hand Exposure: No; Do You Dip or Chew Tobacco: No; Tobacco Cessation Education Requested by Patient: No Hx Alcohol Use: Yes Alcohol type: beer Hx Substance Use: No Preferred Language: Peruvian Communication Ability: Effective Application Support Analyst Required: No Beliefs That Will Affect Care: None marital status: Current Living Situation: Spouse and Family Current Living Situation Comment: Spouse and adult son current occupational status: employed and unemployed Other Information That Helps Us Care for You: No Feels Safe at Home: Yes Safety Concerns: Feels Safe At This Time Childhood Exposure to Second-Hand Smoke: Yes Diet: regular Dental Care, Regularly: No Physical Activity Frequency: 3-4 Times per Week Physical Activity Frequency Comment: crunches, stretching, weights Seatbelt Use: always Sunscreen Use: Yes Assistive Devices: None Assistive Devices Comment: readers Physical Exam Physical Exam: General - Awake alert send incidental values, results okay, no sleep distress CV - RRR, no r/m/g Pulm - CTA bilaterally, normal respiratory effort, no respiratory distress breathing comfortably at room air GI - soft, NT, ND Extr - SCD in place, no swelling appreciated on exam of LE Neuro - CICI, EOM intact, normal speech, no changes in motor strength or sensory perception (has baseline LE paresthesias) Results & Data Results & Data Vital Signs (Past 12 Hours) Vital Signs Temp Pulse Pulse Resp BP BP Pulse Ox 05/29/25 00:28 172/107 H 175/107 H 05/28/25 23:30 185/105 H 05/28/25 22:20 36.8 C 57 L 18 175/106 H 97 05/28/25 20:25 05/28/25 19:48 67 18 167/102 H 97 05/28/25 18:43 37.2 C 55 L 16 166/92 H 95 05/28/25 18:23 36.7 C 64 16 185/100 H 95 05/28/25 17:41 36.9 C 69 20 181/79 H 97 05/28/25 17:27 36.5 C 65 16 134/63 97 05/28/25 17:03 36.9 C 64 16 195/96 H 99 05/28/25 15:58 36.6 C 68 16 162/73 H 99 05/28/25 15:30 36.3 C L 63 16 150/76 H 100 05/28/25 15:00 36.5 C 65 16 134/63 97 05/28/25 14:45 68 17 159/82 H 96 05/28/25 14:30 61 12 140/76 95 05/28/25 14:15 61 13 124/71 100 O2 Del Method O2 Flow Rate 05/29/25 00:28 05/28/25 23:30 05/28/25 22:20 Room Air 05/28/25 20:25 Room Air 05/28/25 19:48 Room Air 05/28/25 18:43 Room Air 05/28/25 18:23 Room Air 05/28/25 17:41 Room Air 05/28/25 17:27 Room Air 05/28/25 17:03 Room Air 05/28/25 15:58 Room Air 05/28/25 15:30 Room Air 05/28/25 15:00 Room Air 05/28/25 14:45 Room Air 0 05/28/25 14:30 Room Air 0 05/28/25 14:15 Room Air 0 Resident Activity Tracking Resident Involvement: Resident Care Provided Care Provided: Adult Hospital Medicine (1) Hypertension Hypertension type: unspecified Qualified Code(s): I10 - Essential (primary) hypertension (8) Peripheral neuropathy Peripheral neuropathy type: polyneuropathy, unspecified Qualified Code(s): G62.9 - Polyneuropathy, unspecified
--- NOTE | 2025-05-29 05:29 | Billing Data ---
Date of Service May 29, 2025 Coding Level of Care Code 98570 IN/OBS CONSULT LVL 3,45M
[2025-05-29] MEDS: LEVOTHYROXINE SODIUM 75 MCG TABLET PO SCH (06:05)
[2025-05-29 07:09] VITALS: RESP 18
[2025-05-29 08:15] LABS: Alanine Aminotransferase 13.0 U/L (7-52); Albumin Globulin Ratio 1.3 (0.9-2); Albumin Level 3.3 gm/dl (3.4-5.0); Alkaline Phosphatase 58.0 U/L (34-104); Anion Gap 7.0 (3-11); Bilirubin,Total 0.3 mg/dl (0.2-1.0); Blood Urea Nitrogen 16.0 mg/dl (6-23); Calcium 8.6 mg/dl (8.6-10.3); Carbon Dioxide 24.0 mmol/L (21-32); Chloride 95.0 mmol/L (98-107); Creatinine Clr Calc Pharmacy 84.4 ml/min; Globulin 2.6 gm/dl (2.5-4.0); Glucose 145.0 mg/dl (70-99(Fasting)); Potassium 3.8 mmol/L (3.5-5.1); Sodium 126.0 mmol/L (136-145); Total Protein 5.9 gm/dl (6.0-8.3)
--- NOTE | 2025-05-29 08:31 | Communication Note ---
Date of Service: May 29, 2025 Follow up. Consult early this AM Hypertension improved - continue amlodipine 5 mg po qAM Adrenal insufficiency - had 10 mg IV dexamethasone preop. Double her usual hydrocort until out of immediate postop period - increased to 40 mg QM and 20 mg afternoon Hyponatremia secondary to SIADH, adrenal insufficiency, IV fluids for surgery - baseline sodium 131-135 based on review of old labs decreased to 127 today. added fluid restriction to 1500 mL and added bid protein supplement recheck Na this afternoon make sure stable or increasing qAM BMP Will continue to follow
[2025-05-29] MEDS: MULTIVITAMIN TAB PO SCH (08:54)
[2025-05-29] MEDS: FOLIC ACID 1 MG TAB PO SCH (08:54)
[2025-05-29] MEDS ORDERED: HYDROCORTISONE 10 MG TAB PO SCH ×2 (09:00→16:00)
--- NOTE | 2025-05-29 09:12 | Orthopedic Progress Note ---
Date of Service May 29, 2025 Assessment & Plan (1) S/P total right hip arthroplasty: * Continue Current Treatment * Appreciate hospital medicine recommendations regarding HTN and steroid dosing * Hyponatremia, recheck Na this afternoon * Disposition: home * Daily treatment: Physical Therapy/ Occupational Therapy per protocol * Weight bearing status: WBAT, no precautions * Continue to monitor for ABLA * Pain control * DVT prophylaxis, ASA * Office/hospital f/u 2 weeks for progress check and staple/suture removal * Plan for discharge today pending PT/OT and medical clearance Subjective .Active Problems: S/p right RYAN POD 1 59 y/o female s/p right RYAN. Doing well overall, pain managed and improved function. Hypertension overnight, appreciate hospital medicine consult. Denies fever/chills, chest pain/SOB, nausea/vomiting. Otherwise no complaints. Review of Systems All systems reviewed & are unremarkable except as noted in HPI & below. Physical Exam . * General: Alert and oriented, no acute distress * Constitutional: well-developed, well-nourished. * Respiratory: Normal respiratory effort, no distress * Gastrointestinal: No tenderness to palpation, no rigidity or guarding. * Skin: No rash or lesion. * Neurologic: Grossly normal * Musculoskeletal: Right hip surgical dressing CDI, not removed for exam. Otherwise no obvious deformity or overlying skin changes. Diffuse TTP proximal thigh and hip region. Otherwise no specific tenderness of distal thigh, lower leg, foot/ankle. AROM hip flexion intact. AROM foot/ankle intact. Sensation intact plantar/dorsal foot. Brisk capillary refill. Results & Data Results & Data Laboratory Results . Diagnostic Findings . Hip X-Ray 05/28/25 00:00 FL hip RT 1V CLINICAL HISTORY: RT ANTERIOR HIP COMPARISON STUDY: 11/18/2024 FLUOROSCOPY TIME: 12 seconds FLUOROSCOPY IMAGES: 1 EXPOSURE DOSE: 1.7 mGy FINDINGS: Fluoroscopy was provided for right hip prosthesis. IMPRESSION: Intraoperative fluoroscopy. ACT 112: Negative or not required by law. Electronically signed by: Ignacio Macdonald M.D. 05/28/2025 1:44 PM Hip/Pelvis X-Ray 05/28/25 13:52 XR hip 1V RT w pelvis HISTORY: 59 years-old Female IN PACU - Post Surgical COMPARISON: 05/14/2025 TECHNIQUE: AP view the pelvis with crosstable lateral view of the right hip FINDINGS: Unchanged appearance of the left hip arthroplasty. There is satisfactory alignment of the right hip arthroplasty with expected postoperative soft tissue swelling and deep tissue air. Not expected opaque foreign bodies. Postoperative changes of the lumbosacral spine. IMPRESSION: Satisfactory alignment of the right hip arthroplasty. ACT 112: Negative or not required by law. The above report was generated using voice recognition software. It may contain grammatical, syntax or spelling errors. Electronically signed by: Lukas Garcia M.D. 05/28/2025 2:55 PM PG Care Time/CCT Total # of Minutes Spent Total Time Spent with Patient: Total time spent is greater than 50% in coordination of care (as documented) at patient's floor/unit and/or counseling patient: Coding Level of Care Code 95637 Post Operative Follow-Up Diagnoses S/P total right hip arthroplasty Z96.641
[2025-05-29] MEDS: HYDROCORTISONE 10 MG TAB PO SCH (09:58)
[2025-05-29 13:15] VITALS: BP 149/85; PULSE 64; TEMP 98.1; O2SAT 95
[2025-05-29] MEDS ORDERED: HYDROXYCHLOROQUINE SULFATE 200 MG TAB PO SCH (14:00)
[2025-05-29 14:59] LABS: Anion Gap 6.0 (3-11); Blood Urea Nitrogen 16.0 mg/dl (6-23); Calcium 8.5 mg/dl (8.6-10.3); Carbon Dioxide 24.0 mmol/L (21-32); Chloride 96.0 mmol/L (98-107); Creatinine Clr Calc Pharmacy 74.5 ml/min; Glucose 119.0 mg/dl (70-99(Fasting)); Potassium 4.2 mmol/L (3.5-5.1); Sodium 126.0 mmol/L (136-145)
== END 2025-05-29 15:52 | disposition home or self-care (01) ==
LOC: ASU 10:00 → 3N 10:00